=== PATIENT | female | born 1960 | race Caucasian/White ===

== ENCOUNTER 2020-01-01 12:37 | Outpatient (RCR) | payer MEDICAID, SELFPAY | END 2020-02-05 11:57 | disposition home or self-care (01) | LOC: HO.WCC 12:37 | PROVIDERS: PCP Internal Medicine; Visit Provider Surgery | DX: E11.621 Type 2 diabetes mellitus with foot ulcer (principal); L97.522 Non-pressure chronic ulcer of other part of left foot with fat layer exposed; E11.40 Type 2 diabetes mellitus with diabetic neuropathy, unspecified; Z89.511 Acquired absence of right leg below knee | CPT/HCPCS: 11042; 99212 ==

== ENCOUNTER 2020-03-14 11:43 | Emergency (ER) | payer MEDICAID, SELFPAY ==
[2020-03-14 11:53] VITALS: BP 134/56; PULSE 74; RESP 16; TEMP 36.6; O2SAT 98; BMI 34.3
[2020-03-14 13:49] VITALS: BP 164/68; PULSE 82; RESP 15; O2SAT 99
--- NOTE | 2020-03-14 13:52 | ED.GENADULT ---
HPI - General Adult General Chief complaint: General Medical Stated complaint: hemmorhoids Time Seen by Provider: 03/14/20 13:52 Source: patient Mode of arrival: ambulatory Limitations: no limitations History of Present Illness HPI narrative: 59-year-old female with history of diabetes, diabetic gastroparesis, hypertension, coronary artery disease status post [place], PVD, pancreatitis, anxiety and depression, back surgery, right BKA who presents with complaint of constipation for the past 3 days. States longstanding history intermittent constipation has been constipated for the past 3 days has been taking her medications prescribed for constipation by primary care doctor including MiraLax and Colace however she has not been able to go. No abdominal pain no nausea vomiting or diarrhea. Onset (ago): day(s) Treatments prior to arrival: none Related Data Previous Rx's Medication Instructions Recorded hydrocortisone 1 appl CO DAILY PRN #30 g 03/14/20 Allergies Allergy/AdvReac Type Severity Reaction Status Date / Time Penicillins [PENICILLINS] Allergy Mild HIVES Unverified 12/05/19 17:07 clarithromycin [From Biaxin] Allergy Unknown HIVES Unverified 12/05/19 17:07 penicillin V Allergy Unknown rash, Verified 01/19/17 00:00 throat tight bioxin Allergy Unknown Uncoded 04/16/19 00:00 penicillin Allergy Unknown Uncoded 04/16/19 00:00 Review of Systems Review of Systems: Constitutional: No Weight loss, No Fever, No Chills, No Night Sweats, No Fatigue, No Malaise ENT/Mouth: No Hearing loss, No Ear Pain, No Nasal Congestion, No Sinus Pain, No Hoarseness, No sore throat, No Rhinorrhea, No Swallowing Difficulty Eyes: No Eye Pain, No Swelling, No Redness, No Foreign Body, No Discharge, No Vision Changes Cardiovascular: No Chest Pain, No SOB, No Dyspnea on Exertion, No Orthopnea, No Edema, No Palpitations Respiratory: No Cough, No Sputum, No Wheezing, No Smoke Exposure, No Dyspnea Gastrointestinal: No Nausea, No Vomiting, No Diarrhea, + Constipation, No abdominal Pain, No Hematochezia, No Melena Genitourinary: no irregular bleeding, No Dysuria, No Urinary Frequency, No Hematuria, No Urinary Incontinence, No Urgency, No Flank Pain, No Urinary Flow Changes Musculoskeletal: No joint pain, No Myalgias, No Joint Swelling Skin: No Skin Lesions, No rash Neuro: No Weakness, No Numbness, No Paresthesias, No Loss of Consciousness, No Dizziness, No Headache Psych: No Social Issues Heme/Lymph: No Bruising, No Bleeding,No Lymphadenopathy Endocrine: No Polyuria, No Polydipsia, No Temperature Intolerance [facility] Past Medical History Medical History (Updated 03/14/20 @ 13:55 by Jayce Rodriguez NP) Anxiety Below knee amputation CAD (coronary artery disease) Chronic pain syndrome Depression Gastroparesis History of gastrostomy tube placement HTN (hypertension) IDDM (insulin dependent diabetes mellitus) Liver lesion Wheelchair bound Social History Social History Smoking Status: Never smoker Use of substances other than those prescribed or required for medical reasons: No Advance Directives: No Advance Directives Information Provided: No Physical Exam Vital Signs: Vital Signs: Last Vital Signs Temp 97.8 F 03/14/20 11:53 Pulse 82 03/14/20 13:49 Resp 15 03/14/20 13:49 BP 164/68 H 03/14/20 13:49 Pulse Ox 99 03/14/20 13:49 Body Mass Index 34.3 Reviewed Const: General: cooperative and healthy appearing; No acute distress or intoxicated appearing Nutritional Appearance: average body habitus Orientation/consciousness: patient oriented x3 HENMT: Head: Yes normal to inspection Ears: hearing grossly normal bilaterally Eyes: General: appearance normal, both eyes and all related structures Visual Bond: normal visual bond by confrontation Neck: Neck: Yes normal visual inspection and No tender Thyroid: Thyroid normal Chest: Chest palpation & inspection: normal inspection of the chest Resp: Effort & Inspection: normal respiratory effort Cardio: Jugular venous distension: no JVD GI: Inspection: Yes normal to inspection Percussion: Yes normal to percussion Auscultation: normal bowel sounds : General: Yes no CVA tenderness Back/Spine/Pelvis: Back: no CVA tenderness Skin: General skin exam: no rashes or lesions noted Neuro: General: patient oriented x3 Extrem: General: Yes normal to inspection Course Course Course Narrative: Prior to my physical exam states to me that she needs to use the bathroom and she was able to have large bowel movement x2. States the only thing that is bothering her now are her hemorrhoids. No abdominal pain no nausea vomiting or diarrhea. Discharge Plan Discharge Clinical Impression: External hemorrhoid Constipation Qualifiers: Constipation type: other constipation type Qualified Code(s): K59.09 - Other constipation Patient Disposition: Home, Self-Care Instructions: Constipation (ED), Hemorrhoids (ED) Additional Instructions: High-fiber diet Drink plenty fluids Take her constipation medication prescribed Can wash with ?water There is no bleeding from the hemorrhoids at this time Return if any concerns or worsening symptoms Thank you Prescriptions: New hydrocortisone 2.5 % cream with perineal applicator 1 appl CO DAILY PRN (Reason: hemorrhoids) Qty: 30 RF: 0 Referrals: ED Physician,Generic [Emergency Provider] - 1 week (Your primary care doctor)
--- NOTE | 2020-03-14 13:53 | PC.NURSE ---
pt had a moderate formed bm , mlp malaika aware.
== END 2020-03-14 16:14 | disposition home or self-care (01) ==
PROVIDERS: Emergency Provider Emergency Medicine Emergency Medical Services
DX: K64.4 Residual hemorrhoidal skin tags (principal); E11.9 Type 2 diabetes mellitus without complications; I10 Essential (primary) hypertension; I25.2 Old myocardial infarction; Z89.511 Acquired absence of right leg below knee; Z79.899 Other long term (current) drug therapy; Z79.4 Long term (current) use of insulin
CPT/HCPCS: 99284

== ENCOUNTER 2020-04-10 20:31 | Emergency (ER) | payer MEDICAID, SELFPAY ==
[2020-04-10 20:41] VITALS: BP 140/70; BP 158/62; PULSE 74; PULSE 76; RESP 18; TEMP 36.8; O2SAT 100; O2SAT 98; BMI 32.5
--- NOTE | 2020-04-10 21:08 | XR_ITS ---
EXAMINATION: XR FOOT, LEFT CLINICAL INFORMATION: Rule out osteomyelitis COMPARISON: CT from 03/30/2019. Radiograph 03/28/2019. TECHNIQUE: AP, lateral, and oblique views of the left foot. FINDINGS: Osteopenia. No fracture or dislocation. Pes planus. Diffuse narrowing throughout the joint spaces. No osseous erosions are seen. Mild degenerative changes in the midfoot. No ankle joint effusion. Degenerative changes are seen throughout the ankle. Chronic healed distal tibial fracture. Small plantar heel spur. XR/XR foot LT min 3V IMPRESSION: Osteopenia. No erosive osseous changes. Degenerative changes again noted.
--- NOTE | 2020-04-10 21:08 | ECG_ITS ---
Test Reason : CHEST PAIN Blood Pressure : / mmHG Vent. Rate : 072 BPM Atrial Rate : 072 BPM P-R Int : 124 ms QRS Dur : 100 ms QT Int : 408 ms P-R-T Axes : 043 062 -32 degrees QTc Int : 446 ms Normal sinus rhythm Possible Inferior infarct (cited on or before 28-FEB-2019) Abnormal ECG When compared with ECG of 02-DEC-2019 18:30, No significant change was found Referred By: Batsheva Flood Electronically Signed By:GWEN SOLANO
--- NOTE | 2020-04-10 21:09 | XR_ITS ---
EXAMINATION: XR CHEST CLINICAL INFORMATION: Dyspnea COMPARISON: Chest x-ray 10/13/2019 TECHNIQUE: Frontal portable view of the chest was obtained. 9:07 PM FINDINGS: Right subclavian line catheter tip in superior vena cava unchanged position since prior chest x-ray. Lungs are clear. No pulmonary vascular congestion. There is no pleural effusion. The heart size is normal. The cardiac and mediastinal contours are normal. There are calcifications of the thoracic aorta. No acute osseous abnormality. XR/XR chest 1V IMPRESSION: No acute abnormality of the chest.
--- NOTE | 2020-04-10 21:11 | ED.SOB ---
HPI - SOB/Dyspnea General Chief Complaint: Upper Respiratory Symptoms Stated Complaint: SOB Time Seen by Provider: 04/10/20 21:08 Source: patient and EMS Mode of arrival: EMS Limitations: no limitations History of Present Illness MD elicited complaint: shortness of breath and chest pain Pertinent past history: diabetes Onset (ago): day(s) (1) Timing: constant Severity: moderate Exacerbating factors: movement Relieving factors: nothing Known history of: diabetes Associated symptoms: chest pain and lower extremity pain Treatment prior to arrival: aspirin Related Data Home Medications Medication Instructions Recorded Confirmed alprazolam [Xanax] 1 mg PO TID 04/10/20 04/10/20 amitriptyline [Elavil] 50 mg PO BEDTIME 04/10/20 04/10/20 [id number] 1 tab PO TID 04/10/20 04/10/20 [Fioricet] hydromorphone 4 mg PO 5XD 04/10/20 04/10/20 loperamide 2 mg PO BID PRN 04/10/20 04/10/20 promethazine 25 mg PO TID PRN 04/10/20 04/10/20 Previous Rx's Medication Instructions Recorded doxycycline hyclate 100 mg PO BID 7 Days #14 cap 04/10/20 Allergies Allergy/AdvReac Type Severity Reaction Status Date / Time Penicillins [PENICILLINS] Allergy Mild HIVES Verified 04/10/20 23:28 clarithromycin [From Biaxin] Allergy Unknown HIVES Verified 04/10/20 23:28 penicillin V Allergy Unknown rash, Verified 04/10/20 23:28 throat tight bioxin Allergy Unknown Unknown Uncoded 04/10/20 23:28 penicillin Allergy Unknown Unknown Uncoded 04/10/20 23:28 Review of Systems Review of Systems: Constitutional : No Fever, No Chills ENT/Mouth : No sore throat, No Rhinorrhea, No Swallowing Difficulty Eyes: No Eye Pain, No Swelling, No Redness Cardiovascular : pos Chest Pain, positive SOB, No Orthopnea, positive Edema Respiratory : No Cough, No Sputum, No Wheezing, positive dyspnea Gastrointestinal : No Nausea, No Vomiting, No Diarrhea, No abdominal Pain, No Hematochezia, No Melena Genitourinary : No Dysuria, No Urinary Frequency, No Hematuria Musculoskeletal : No joint pain, No Myalgias Skin : pos Skin Lesions, No rash Neuro : No Weakness, No Numbness, No Dizziness, No Headache Psych : No Anxiety/Panic, No Depression Heme/Lymph: No Bruising, No Lymphadenopathy Endocrine : No Polyuria, No Polydipsia All other systems reviewed and are negative [facility] Past Medical History Attestation statement: The following information was validated with the patient. Medical History (Updated 04/10/20 @ 23:31 by Batsheva Flood DO) Anxiety Below knee amputation CAD (coronary artery disease) Chronic pain syndrome Depression Gastroparesis History of gastrostomy tube placement HTN (hypertension) IDDM (insulin dependent diabetes mellitus) Liver lesion Wheelchair bound Surgical History (Updated 04/10/20 @ 21:19 by Batsheva Flood DO) Hx of BKA Social History Social History Alcohol intake: never Smoking Status: Never smoker Use of substances other than those prescribed or required for medical reasons: No Advance Directives: No Advance Directives Information Provided: Yes Physical Exam Vital Signs: Vital Signs: Last Vital Signs Temp 98.4 F 04/10/20 22:00 Pulse 72 04/10/20 22:00 Resp 17 04/10/20 22:00 BP 121/71 04/10/20 22:00 Pulse Ox 98 04/10/20 22:00 Body Mass Index 32.5 Appearance: Alert. Oriented X3. No acute distress. Eyes: Pupils equal, round and reactive to light. ENT: Pharynx normal. Neck: Normal inspection. Neck supple. CVS: Normal heart rate and rhythm. Pulses normal. Respiratory: No respiratory distress. Breath sounds normal. Abdomen: Soft and nontender. Skin: Skin warm and dry. Normal skin color. Normal skin turgor. Extremities: + L LE edema 1-2+ pitting No calf ttp L plantar surface MTP - diabetic ulcer no surrounding erythema or edema/very minimal brownish drainage no foul odor noted Neuro: Oriented X 3. No motor deficit. No sensory deficit. Course Course Course Narrative: troponin under 5 with full day of symptoms ddimer under upper limit of normal no hypoxia, no tachycardia doubt PE CRP lower than baseline, no WBC count doubt osteo at this time, chronically elevated BS in EMR, insulin ordered ESR also much lower, given prior cultures will start on doxycycline MDM - SOB/Dyspnea MDM Narrative Medical decision making narrative: 60 yo female with chronic pain, CAD, DM, chronic foot ulcer comes in with 24 hours of L sided chest pain worse with movements and dyspnea - also c/o worsening L foot ulcer will need labs, troponin x 1, ddimer, CXR, already on asa, ddimer for possible PE, xray of L foot to r/o osteo. denies systemic infection complaints Lab Data Result diagrams: 04/10/20 22:22 04/10/20 22:22 Labs: Lab Results 04/10/20 04/10/20 04/10/20 Range/Units 22: 22: 22: WBC 9.6 (4.8-10.8) X10*3/uL RBC 4.30 (4.20-5.50) X10*6/uL Hgb 13.4 (12.0-16.0) g/dl Hct 40.7 (37-47) % MCV 94.7 (80-98) fL MCH 31.2 (27.0-33.0) pg MCHC 32.9 (31.0-35.0) g/dl RDW 12.4 (11.0-16.0) % Plt Count 228 (160-400) X10*3/uL MPV 10.1 (9.4-12.3) fL Immature Gran % (Auto) 0.3 (0.0-0.4) % Neut % (Auto) 70.1 (45-73) % Lymph % (Auto) 22.5 (20-40) % [place] % (Auto) 6.2 (2-11) % Eos % (Auto) 0.6 (0-4) % Baso % (Auto) 0.3 (0-2) % Lymph # (Auto) 2.2 (1.2-4.9) X10*3/uL [place] # (Auto) 0.6 (0.1-1.2) X10*3/uL Eos # (Auto) 0.1 (0.0-0.4) X10*3/uL Baso # (Auto) 0.0 (0.0-0.2) X10*3/uL Abs Immat Gran (auto) 0.03 (0.00-0.03) X10*3/uL Absolute Neuts (auto) 6.7 (2.0-8.3) X10*3/uL Absolute Nucleated RBC 0.000 (0.0-0.012) X10*3/uL Nucleated RBC % (auto) 0.0 (0.0-0.2) /100WBC ESR 29 H (0-20) MM/HR PT 11.9 (10.8-13.0) SEC INR 1.0 (0.9-1.1) APTT 31.3 (24.1-38.0) SEC D-Dimer 231 NG/ML Sodium (135-145) mmol/L Potassium (3.3-5.1) mmol/l Chloride (96-108) mmol/L Carbon Dioxide (22-29) mmol/L Anion Gap (12-20) BUN (9-16) mg/dL Creatinine (0.5-1.4) mg/dL Estim Creat Clear Calc Estimated GFR Random Glucose (60-115) mg/dL Lactic Acid (0.5-2.0) mmol/L Calcium (8.4-10.2) mg/dL Magnesium (1.6-2.6) mg/dL Total Bilirubin (0.0-1.0) mg/dL Direct Bilirubin (0.0-0.5) mg/dL AST (5-31) U/L ALT (0-31) U/L Alkaline Phosphatase (39-117) U/L Troponin I High Sens (<3.5-17.0) ng/L C-Reactive Protein (< or = 0.50) mg/dL B-Natriuretic Peptide (<100) pg/mL Total Protein (6.5-8.0) g/dL Albumin (3.5-5.0) g/dL Lipase (8-78) U/L COVID-19 (TA) (Negative) COVID-19 Clin Com 04/10/20 04/10/20 04/10/20 Range/Units 22:22 22:22 22:22 WBC (4.8-10.8) X10*3/uL RBC (4.20-5.50) X10*6/uL Hgb (12.0-16.0) g/dl Hct (37-47) % MCV (80-98) fL MCH (27.0-33.0) pg MCHC (31.0-35.0) g/dl RDW (11.0-16.0) % Plt Count (160-400) X10*3/uL MPV (9.4-12.3) fL Immature Gran % (Auto) (0.0-0.4) % Neut % (Auto) (45-73) % Lymph % (Auto) (20-40) % [place] % (Auto) (2-11) % Eos % (Auto) (0-4) % Baso % (Auto) (0-2) % Lymph # (Auto) (1.2-4.9) X10*3/uL [place] # (Auto) (0.1-1.2) X10*3/uL Eos # (Auto) (0.0-0.4) X10*3/uL Baso # (Auto) (0.0-0.2) X10*3/uL Abs Immat Gran (auto) (0.00-0.03) X10*3/uL Absolute Neuts (auto) (2.0-8.3) X10*3/uL Absolute Nucleated RBC (0.0-0.012) X10*3/uL Nucleated RBC % (auto) (0.0-0.2) /100WBC ESR (0-20) MM/HR PT (10.8-13.0) SEC INR (0.9-1.1) APTT (24.1-38.0) SEC D-Dimer NG/ML Sodium 134 L (135-145) mmol/L Potassium 4.9 (3.3-5.1) mmol/l Chloride 100 (96-108) mmol/L Carbon Dioxide 23 (22-29) mmol/L Anion Gap 16 (12-20) BUN 12 (9-16) mg/dL Creatinine 0.98 (0.5-1.4) mg/dL Estim Creat Clear Calc 64.8 Estimated GFR 58 Random Glucose 451 H* (60-115) mg/dL Lactic Acid 1.6 (0.5-2.0) mmol/L Calcium 9.2 (8.4-10.2) mg/dL Magnesium 2.1 (1.6-2.6) mg/dL Total Bilirubin 0.5 (0.0-1.0) mg/dL Direct Bilirubin 0.2 (0.0-0.5) mg/dL AST 21 (5-31) U/L ALT 13 (0-31) U/L Alkaline Phosphatase 105 (39-117) U/L Troponin I High Sens (<3.5-17.0) ng/L C-Reactive Protein 0.83 H (< or = 0.50) mg/dL B-Natriuretic Peptide 27 (<100) pg/mL Total Protein 7.8 (6.5-8.0) g/dL Albumin 4.4 (3.5-5.0) g/dL Lipase 13 (8-78) U/L COVID-19 (TA) (Negative) COVID-19 Clin Com 04/10/20 04/10/20 Range/Units 22:22 22:22 WBC (4.8-10.8) X10*3/uL RBC (4.20-5.50) X10*6/uL Hgb (12.0-16.0) g/dl Hct (37-47) % MCV (80-98) fL MCH (27.0-33.0) pg MCHC (31.0-35.0) g/dl RDW (11.0-16.0) % Plt Count (160-400) X10*3/uL MPV (9.4-12.3) fL Immature Gran % (Auto) (0.0-0.4) % Neut % (Auto) (45-73) % Lymph % (Auto) (20-40) % [place] % (Auto) (2-11) % Eos % (Auto) (0-4) % Baso % (Auto) (0-2) % Lymph # (Auto) (1.2-4.9) X10*3/uL [place] # (Auto) (0.1-1.2) X10*3/uL Eos # (Auto) (0.0-0.4) X10*3/uL Baso # (Auto) (0.0-0.2) X10*3/uL Abs Immat Gran (auto) (0.00-0.03) X10*3/uL Absolute Neuts (auto) (2.0-8.3) X10*3/uL Absolute Nucleated RBC (0.0-0.012) X10*3/uL Nucleated RBC % (auto) (0.0-0.2) /100WBC ESR (0-20) MM/HR PT (10.8-13.0) SEC INR (0.9-1.1) APTT (24.1-38.0) SEC D-Dimer NG/ML Sodium (135-145) mmol/L Potassium (3.3-5.1) mmol/l Chloride (96-108) mmol/L Carbon Dioxide (22-29) mmol/L Anion Gap (12-20) BUN (9-16) mg/dL Creatinine (0.5-1.4) mg/dL Estim Creat Clear Calc Estimated GFR Random Glucose (60-115) mg/dL Lactic Acid (0.5-2.0) mmol/L Calcium (8.4-10.2) mg/dL Magnesium (1.6-2.6) mg/dL Total Bilirubin (0.0-1.0) mg/dL Direct Bilirubin (0.0-0.5) mg/dL AST (5-31) U/L ALT (0-31) U/L Alkaline Phosphatase (39-117) U/L Troponin I High Sens 4.3 (<3.5-17.0) ng/L C-Reactive Protein (< or = 0.50) mg/dL B-Natriuretic Peptide (<100) pg/mL Total Protein (6.5-8.0) g/dL Albumin (3.5-5.0) g/dL Lipase (8-78) U/L COVID-19 (TA) Negative (Negative) COVID-19 Clin Com See Note ECG Data Attestation: I personally reviewed and interpreted this ECG as follows: ECG interpretation date: 04/10/20 ECG interpretation time: 21:46 Interpretation: Rate: 73 Rhythm: NSR [place]: normal Normal P waves. Normal MARY. Normal QRS complex. Poor R wave progression ST T wave : no DAMARIS, inverted in III and aVF qTC: normal prior studies: no acute ischemia, artifact noted unchanged 11/2019 The study has been interpreted contemporaneously by me. . Discharge Plan Discharge Clinical Impression: Diabetic foot ulcer Qualifiers: Diabetic foot ulcer location: other Diabetes mellitus type: other specified (including NANCY) Laterality: left Non-pressure ulcer stage: unspecified non-pressure ulcer stage Qualified Code(s): E13.621 - Other specified diabetes mellitus with foot ulcer Chest pain Qualifiers: Chest pain type: unspecified Qualified Code(s): R07.9 - Chest pain, unspecified Patient Disposition: Home, Self-Care Instructions: Chest Pain (ED), Diabetic Foot Ulcers (ED) Additional Instructions: return to ED for any worsening symptoms or concerns PLEASE CALL [facility] Prescriptions: New doxycycline hyclate 100 mg capsule 100 mg PO BID 7 Days Qty: 14 RF: 0 No Action alprazolam [Xanax] 1 mg Tablet 1 mg PO TID RF: 0 loperamide 2 mg Tablet 2 mg PO BID PRN (Reason: Diarrhea) RF: 0 amitriptyline [Elavil] 50 mg Tablet 50 mg PO BEDTIME RF: 0 [id number]-dsdzlvnadryua-[id number] [Fioricet] 50-325-40 mg Tablet 1 tab PO TID RF: 0 promethazine 25 mg Tablet 25 mg PO TID PRN (Reason: Nausea And Vomiting) RF: 0 hydromorphone 4 mg Tablet 4 mg PO 5XD RF: 0 Referrals: Willie Pollard PA [[facility] [employer]] - 3 days
[2020-04-10 22:00] VITALS: BP 121/71; PULSE 72; RESP 17; TEMP 36.9; O2SAT 98
[2020-04-10 22:29] LABS: MANUAL DIFF FLAG NO
[2020-04-10 22:31] LABS: Basophils Percent Auto 0.3 % (0-2); Eosinophils Absolute Auto 0.1 X10*3/uL (0.0-0.4); Eosinophils Percent Auto 0.6 % (0-4); Hematocrit 40.7 % (37-47); Hemoglobin 13.4 g/dl (12.0-16.0); Imm Gran Abs Auto 0.03 X10*3/uL (0.00-0.03); Imm Gran Pct Auto 0.3 % (0.0-0.4); Lymphocytes Absolute Auto 2.2 X10*3/uL (1.2-4.9); Lymphocytes Percent Auto 22.5 % (20-40); Mean Corpuscular HGB Conc 32.9 g/dl (31.0-35.0); Mean Corpuscular Hemoglobin 31.2 pg (27.0-33.0); Mean Corpuscular Volume 94.7 fL (80-98); Mean Platelet Volume 10.1 fL (9.4-12.3); Monocytes Absolute Auto 0.6 X10*3/uL (0.1-1.2); Monocytes Percent Auto 6.2 % (2-11); Neutrophils Absolute Auto 6.7 X10*3/uL (2.0-8.3); Neutrophils Percent Auto 70.1 % (45-73); Platelet Count 228 X10*3/uL (160-400); Red Cell Distribution Width 12.4 % (11.0-16.0); White Blood Count 9.6 X10*3/uL (4.8-10.8)
--- NOTE | 2020-04-10 22:33 | PC.NURSE ---
ekg performed, labs drawn, covid swab performed
[2020-04-10 22:41] LABS: Prothrombin Time 11.9 SEC (10.8-13.0)
[2020-04-10 22:44] LABS: D Dimer 231 NG/ML; Partial Thromboplastin Time 31.3 SEC (24.1-38.0)
[2020-04-10 22:46] LABS: COVID-19 Test Negative (Negative)
--- NOTE | 2020-04-10 22:46 | PC.NURSE ---
patient a&ox3, speaking in full sentences, breathing non labored, panel monitor nsr 70s, vss, pt awaiting results of labs, will continue to monitor.
[2020-04-10 22:56] LABS: B Type Natriuretic Peptide 27 pg/mL (<100); Lactic Acid 1.6 mmol/L (0.5-2.0); Troponin-I High Sensitivity 4.3 ng/L (<3.5-17.0)
[2020-04-10 22:57] LABS: Alanine Aminotransferase 13 U/L (0-31); Albumin Level 4.4 g/dL (3.5-5.0); Alkaline Phosphatase 105 U/L (39-117); Anion Gap 16 (12-20); Aspartate Amino Transferase 21 U/L (5-31); Bilirubin Direct 0.2 mg/dL (0.0-0.5); Bilirubin Total 0.5 mg/dL (0.0-1.0); Blood Urea Nitrogen 12 mg/dL (9-16); C Reactive Protein 0.83 mg/dL (< or = 0.50); Calcium 9.2 mg/dL (8.4-10.2); Carbon Dioxide 23 mmol/L (22-29); Chloride 100 mmol/L (96-108); Creatinine Clr Calc Pharmacy 64.8; Estimated Glomerular Filt Rate 58; Glucose Random 451 mg/dL (60-115); Lipase 13 U/L (8-78); Magnesium 2.1 mg/dL (1.6-2.6); Potassium 4.9 mmol/l (3.3-5.1); Sodium 134 mmol/L (135-145); Total Protein 7.8 g/dL (6.5-8.0)
[2020-04-10 23:22] LABS: Erythrocyte Sedimentation Rate 29 MM/HR (0-20)
[2020-04-10] MEDS: Insulin Lispro 100 UNIT/ML 3 ML VIAL SUBCUT (23:38)
[2020-04-11 00:32] LABS: Glucose, Whole Blood 385 mg/dL (60-115)
== END 2020-04-11 00:40 | disposition home or self-care (01) ==
PROVIDERS: Emergency Provider Emergency Medicine
DX: E13.621 Other specified diabetes mellitus with foot ulcer (principal); R07.9 Chest pain, unspecified; Z20.822 Contact with and (suspected) exposure to COVID-19; I10 Essential (primary) hypertension; Z79.4 Long term (current) use of insulin; Z99.3 Dependence on wheelchair
CPT/HCPCS: 36415; 71045; 73630; 80048; 80076; 82947; 83605; 83690; 83735; 83880; 84484; 85025; 85379; 85610; 85652; 85730; 86140; 87040; 87147; 87205; 87635; 93005; 96374; 99284

== ENCOUNTER 2020-04-23 13:51 | Outpatient (RCR) | payer MEDICAID, SELFPAY | END 2020-06-02 11:26 | disposition home or self-care (01) | LOC: HO.WCC 13:51 | PROVIDERS: Visit Provider Surgery | DX: Z09 Encounter for follow-up examination after completed treatment for conditions other than malignant neoplasm (principal); E11.9 Type 2 diabetes mellitus without complications; Z89.511 Acquired absence of right leg below knee; Z86.31 Personal history of diabetic foot ulcer | CPT/HCPCS: 11042; 97597; 99212 ==

== ENCOUNTER 2020-05-12 08:40 | Inpatient (IN) | payer MEDICAID, SELFPAY ==
[2020-05-12] VITALS (13 sets, daily range): BP systolic 85–164; BP diastolic 37–80; PULSE 69–84; RESP 12–18; TEMP 36.5–37.7; O2SAT 95–100; BMI 31.7
--- NOTE | ~2020-05-12 | XR_ITS ---
EXAMINATION: XR ELBOW, LEFT CLINICAL INFORMATION: Fall, trauma, pain COMPARISON: None TECHNIQUE: AP, lateral, and oblique views of the left elbow. FINDINGS: There is no fracture, dislocation, or elbow capsular effusion. No joint narrowing or erosive change. Bony mineralization unremarkable. XR/XR elbow LT min 3V IMPRESSION: No fracture, dislocation, or elbow capsular effusion.
--- NOTE | ~2020-05-12 | XR_ITS ---
EXAMINATION: XR KNEE, LEFT CLINICAL INFORMATION: Fall, trauma, pain COMPARISON: Radiographs left knee 02/13/2015 TECHNIQUE: 5 views of the left knee. FINDINGS: There no fracture, dislocation, or destructive process. There are tricompartment osteoarthritic changes again noted, greatest medial knee joint compartment with mild joint narrowing and osteophytes. There is no erosive change or definite chondrocalcinosis. There is trace thickening suprapatellar bursa which may represent trace effusion. Hoffa's fat pad appears normal. There is spurring at the quadriceps insertion patella. There is extensive vascular calcification, partly M?nckeberg medial calcific sclerosis.? XR/XR knee LT 4V IMPRESSION: 1. No fracture or dislocation. 2. Tricompartment osteoarthritis. Probable trace effusion.
--- NOTE | ~2020-05-12 | CT_ITS ---
EXAMINATION: CT HEAD WITHOUT CONTRAST CLINICAL INFORMATION: Fall, trauma COMPARISON: CT head 04/05/2019, 02/28/2019 TECHNIQUE: Contiguous axial imaging was performed from the skull base to vertex without intravenous administration of contrast. Additional 2-D coronal and sagittal reformatted images are generated on the CT workstation and uploaded to PACS. This CT examination was performed using dose optimization techniques as appropriate, variously including the following: *Automated exposure control *Adjustment of mA and/or kV according to patient size (this includes techniques or standardized protocols for targeted exams where dose is matched to indication/reason for exam; i.e. extremities or head) *Use of iterative reconstruction technique DLP: 682 mGy-cm FINDINGS: There is no intracranial hemorrhage, hematoma, or extra-axial fluid collection. The ventricles are normal in size. There is no hydrocephalus, edema, or mass effect. The roy-white matter differentiation appears symmetric. There is no visible acute territorial infarct or mass lesion. The calvarium appears intact. There is no pneumocephalus or orbital emphysema. The visualized sinuses and middle ears and mastoid air cells show no significant mucosal thickening. There are no air-fluid levels. CT/CT head/brain wo con IMPRESSION: No acute intracranial abnormality.
--- NOTE | ~2020-05-12 | XR_ITS ---
EXAMINATION: XR HAND WRIST, LEFT CLINICAL INFORMATION: Fall, trauma, pain and swelling COMPARISON: None TECHNIQUE: The left hand and wrist are imaged together in large [id number] images for 3 views with additional navicular view of the wrist. There are a total of 4 views. FINDINGS: There is an oblique fracture involving the base second metacarpal. No significant displacement or angulation. No dislocation or destructive process. The fracture may extend to the proximal articular surface. There is no other fracture demonstrated. The ulnar variance is neutral. There are atherosclerotic calcifications vasculature. XR/XR hand wrist LT IMPRESSION: Oblique fracture base second metacarpal standing close to the proximal articular surface. No significant angulation or displacement. No dislocation.
--- NOTE | ~2020-05-12 | CT_ITS ---
EXAMINATION: CT CERVICAL SPINE WITHOUT CONTRAST CLINICAL INFORMATION: Fall, head injury. COMPARISON: 10/04/2019 TECHNIQUE: Axial imaging. Sagittal and coronal reconstructions. This CT examination was performed using dose optimization techniques as appropriate, variously including the following: *Automated exposure control *Adjustment of mA and/or kV according to patient size (this includes techniques or standardized protocols for targeted exams where dose is matched to indication/reason for exam; i.e. extremities or head) *Use of iterative reconstruction technique DLP: 625 mGy-cm. FINDINGS: Motion artifact degrading images, with associated limitations. Atlantooccipital and atlantoaxial relations are maintained. Mild right convex curvature of the cervical spine. On the sagittal sequences, posterior alignment is maintained. Predens space is maintained. Vertebral body heights are maintained. No acute fracture is identified. Moderate disc degeneration from C6-T1. No prevertebral soft tissue swelling. Mild biapical pleural parenchymal scarring. Right-sided port is partially visualized. No suspicious findings in the thyroid gland. CT/CT cervical spine wo con IMPRESSION: 1. On the provided images, no acute fracture or subluxation is identified. Motion artifact is degrading images, with associated limitation in evaluation. Please clinically correlate. A repeat CT scan can be obtained for further evaluation as slightly warranted. 2. Moderate disc degeneration from C6-T1.
--- NOTE | ~2020-05-12 | CT_ITS ---
EXAMINATION: CT ABDOMEN AND PELVIS WITHOUT CONTRAST CLINICAL INFORMATION: Fall. Back and abdominal pain. COMPARISON: 12/02/2019 TECHNIQUE: Multidetector volumetric imaging was performed from the superior aspect of the liver through the pubic symphysis. Sagittal and coronal reformatted images were obtained on the technologist's workstation. This CT examination was performed using dose optimization techniques as appropriate, variously including the following: *Automated exposure control *Adjustment of mA and/or kV according to patient size (this includes techniques or standardized protocols for targeted exams where dose is matched to indication/reason for exam; i.e. extremities or head) *Use of iterative reconstruction technique DLP: 1287 mGy-cm FINDINGS: LUNG BASES: Mild bibasilar atelectasis. LIVER, GALLBLADDER, AND BILIARY TREE: Redemonstrated are areas of ill-defined low attenuation in the liver. These are suboptimally visualized and evaluated on this noncontrast CT, but appreciated on the prior contrast CT of 12/02/2019. No perihepatic fluid is seen. The gallbladder is nondistended/contracted, evaluation is limited. CBD measures 7 mm distally, similar to previous. PANCREAS: Diffuse atrophy of the pancreas is redemonstrated. The previously noted cystic foci in the head of the pancreas are not well seen on the current noncontrast study, better appreciated on the prior contrast-enhanced CT. SPLEEN: Unremarkable. No perisplenic fluid is seen. ADRENAL GLANDS: Unremarkable. KIDNEYS AND URETERS: No calculi. No hydronephrosis. No suspicious lesions identified. No perinephric fluid. BLADDER: Unremarkable. GASTROINTESTINAL TRACT: Sryqxkgl-ra-ffadz volume fecal matter in the large colon. The stomach and small bowel are not dilated. No evidence of colitis or diverticulitis. No free fluid. No free air is seen. ABDOMINAL WALL: Gastric stimulator generator pack seen in the anterior abdomen. There is stranding in the subcutaneous tissues of the right abdominal wall, which was seen on the prior study, as well. No significant abdominal wall hernia is identified. LYMPH NODES: No adenopathy seen. VASCULAR: Normal caliber aorta. PELVIC VISCERA: Within normal limits. OSSEOUS STRUCTURES: Patient is rotated to the right. Redemonstrated is heterogeneous appearance of the bones. Heterogeneity/lucency of the left iliac bone is redemonstrated, stable from previous. There are lucencies in the L3 and L4 vertebral body, similar to previous. Vertebral body heights are maintained. No acute fractures identified. Degenerative changes in the spine. No acute fracture is otherwise seen. There is air seen in the right SI joint, and small foci of air in the left SI joint, which was also present in the prior study, and may be related to vacuum phenomenon. CT/CT abdomen pelvis wo con IMPRESSION: 1. No acute findings are identified in the abdomen or pelvis. 2. Ill-defined areas of low densities in the liver, suboptimally visualized on noncontrast CT. These were present and better appreciated on the prior contrast enhanced CT of 12/02/2019. 3. There is stranding in the subcutaneous tissues of the right abdominal wall, which are present on the prior study, as well. 4. Patient is rotated to the right, somewhat limiting evaluation. No acute fracture is identified. Diffuse heterogeneity of the osseous structures, including areas of lucency within the bones. These appear unchanged as compared to previous. These are of uncertain etiology. Further evaluation with followup bone scan can be obtained as clinically warranted.
--- NOTE | ~2020-05-12 | XR_ITS ---
EXAMINATION: XR CHEST CLINICAL INFORMATION: Status post fall. COMPARISON: 04/10/2020 TECHNIQUE: 2 views of the chest were obtained. FINDINGS: Markedly rotated positioning. There is prominence of the cardiac and mediastinal silhouette, accentuated by the rotated positioning. Right-sided chest port with tip projected over the distal SVC. Monitoring leads overlie the chest. Low lung volumes. No focal consolidation, effusion or pulmonary edema. No pneumothorax is seen. XR/XR chest 2V IMPRESSION: No evidence of acute pulmonary process. Prominence of the cardiac and mediastinal silhouette, probably related to the rotated positioning. Repeat radiographs as clinically warranted.
--- NOTE | 2020-05-12 09:10 | ECG_ITS ---
Test Reason : FALL Blood Pressure : / mmHG Vent. Rate : 069 BPM Atrial Rate : 069 BPM P-R Int : 180 ms QRS Dur : 110 ms QT Int : 422 ms P-R-T Axes : 034 059 -18 degrees QTc Int : 452 ms Normal sinus rhythm Inferior infarct (cited on or before 28-FEB-2019) Abnormal ECG When compared with ECG of 10-APR-2020 21:42, No significant change was found Referred By: Felicia Urbano Electronically Signed By:VLADIMIR DICKEY MD
--- NOTE | 2020-05-12 09:47 | ED.FALL ---
HPI - Fall General Chief Complaint: Fall Stated Complaint: HIGH BS W/ FALL AND HEAD STRIKE Time Seen by Provider: 05/12/20 08:50 Source: patient and EMS Mode of arrival: EMS Limitations: other (Poor historian) History of Present Illness HPI Narrative: 60-year-old female who is currently wheelchair-bound with a past medical history of below the knee amputation of the left leg, insulin-dependent diabetes where she takes long-acting 15 units twice a day of insulin, CAD, hypertension, chronic pain syndrome currently on 4 mg of Dilaudid, liver lesion, anxiety and depression presenting to the ED via EMS with C-collar placed after she reports having a unwitnessed mechanical fall in the bathroom while trying to pull her pants up with head injury unsure if she lost consciousness complaining of left elbow/left knee and lower back pain. She reports when she was attempting to pull her pants up in the bathroom after using the bathroom due to having her Omar stocking on she slipped falling onto the cement ground. She reports she was able to pull the pull cord in her apartment for help and that is when EMS shortly arrived later on. She denies any symptoms prior to the fall which include any lightheadedness, dizziness, changes in vision, nausea/vomiting, jaw pain, paresthesias, chest pain, shortness of breath, abdominal pain or any other symptoms complaints or concerns. MD complaint: fall Onset (ago): minute(s) (Prior to arrival) Fall from: standing (While attempting to pull up her pants in the bathroom) Fall witnessed: no Place fall occurred: home Loss of consciousness: unsure Prolonged down time: unclear Symptoms prior to fall: none Context: tripped/slipped (Due to she had her Omar stocking on ) Related Data Home Medications Medication Instructions Recorded Confirmed alprazolam [Xanax] 1 mg PO TID 04/10/20 05/12/20 [id number] 1 tab PO TID PRN 04/10/20 05/12/20 [Fioricet] hydromorphone 4 mg PO 5XD 04/10/20 05/12/20 promethazine 25 mg PO TID PRN 04/10/20 05/12/20 amitriptyline 50 mg PO BEDTIME 05/12/20 05/12/20 amlodipine 5 mg PO DAILY 05/12/20 05/12/20 aspirin 81 mg PO DAILY 05/12/20 05/12/20 atorvastatin 80 mg PO DAILY 05/12/20 05/12/20 bisacodyl 5 mg PO BID PRN 05/12/20 05/12/20 gabapentin 300 mg PO TID 05/12/20 05/12/20 insulin regular hum U-500 conc 200 unit SUBCUT BEDTIME 05/12/20 05/12/20 [Humulin R U-500 (Conc) Insulin] insulin regular hum U-500 conc 250 unit SUBCUT QAM 05/12/20 05/12/20 [Humulin R U-500 (Conc) Insulin] isosorbide mononitrate 30 mg PO DAILY 05/12/20 05/12/20 lactulose 20 g PO TID PRN 05/12/20 05/12/20 losartan 100 mg PO DAILY 05/12/20 05/12/20 metoclopramide HCl 10 mg PO Q6H PRN 05/12/20 05/12/20 metoprolol succinate 100 mg PO BID 05/12/20 05/12/20 niacin 1,000 mg PO BEDTIME 05/12/20 05/12/20 omeprazole 20 mg PO BID 05/12/20 05/12/20 polyethylene glycol 3350 [Miralax] 17 g PO DAILY 05/12/20 05/12/20 topiramate 100 mg PO BID 05/12/20 05/12/20 Allergies Allergy/AdvReac Type Severity Reaction Status Date / Time Penicillins [PENICILLINS] Allergy Mild HIVES Verified 04/10/20 23:28 clarithromycin [From Biaxin] Allergy Unknown HIVES Verified 04/10/20 23:28 penicillin V Allergy Unknown rash, Verified 04/10/20 23:28 throat tight bioxin Allergy Unknown Unknown Uncoded 04/10/20 23:28 penicillin Allergy Unknown Unknown Uncoded 04/10/20 23:28 Review of Systems Review of Systems: Constitutional : No changes in activity, No lethargy, No recent prior head injury, No agitation, No increased fussiness ENT/Mouth : No Ear Pain, No Nasal discharge/drainage Eyes: No Eye Pain, No Swelling, No Redness, No Foreign Body, No Vision Changes Cardiovascular : No Chest Pain, No SOB Respiratory : No Cough, No Wheezing Gastrointestinal : No Nausea, No Vomiting, No abdominal Pain Genitourinary : No Dysuria, No Urinary Frequency, No Urinary Incontinence, No Urgency, No Flank Pain Musculoskeletal : + Back pain/injury, No joint pain, No neck stiffness Skin : No lacerations Neuro : + Head injury, Unsure if LOC, No unsteady gait, No Paresthesias, No altered mental status, No Headache Yes all other systems are reviewed and are negative [facility] Past Medical History Attestation statement: The following information was validated with the patient. Medical History Anxiety Below knee amputation CAD (coronary artery disease) Chronic pain syndrome Depression Gastroparesis History of gastrostomy tube placement HTN (hypertension) IDDM (insulin dependent diabetes mellitus) Liver lesion Wheelchair bound Surgical History Hx of BKA Social History Social History Alcohol intake: never Smoking Status: Never smoker Use of substances other than those prescribed or required for medical reasons: Unknown Advance Directives: No Advance Directives Information Provided: No Physical Exam Vital Signs: Vital Signs: Last Vital Signs Temp 98.8 F 05/12/20 15:14 Pulse 80 05/12/20 15:14 Resp 15 05/12/20 15:14 BP 164/74 H 05/12/20 15:14 Pulse Ox 97 05/12/20 15:14 Body Mass Index 31.7 Vital signs have been reviewed as normal and appeared to be correct. Blood pressure normal. Heart rate normal. Respiration rate normal. Temperature normal. Oxygen saturation normal. Appearance: Somnolent although easily arousable otherwise Oriented X3. No acute distress. Head: Normal external exam. Normocephalic. Atraumatic. Able to rotate head bilaterally. Eyes: PERRLA. EOMI. No nystagmus noted. Conjunctiva and sclera normal. Eyelids normal. Corneal reflex normal. ENT: EAC normal. TM's Normal. Hearing normal. Pharynx normal. Uvula midline. tongue midline. Moist mucous membranes. No trismus noted. No drooling noted. No muffled voice noted. No nystagmus noted. Neck: Normal inspection. Neck supple. FROM. No adenopathy. Trachea midline. Thyroid Normal. No meningeal signs. No neck mass noted. CVS: Normal heart rate and rhythm. Heart sound normal. No murmurs noted. Pulses normal throughout. Respiratory: No respiratory distress. Painless inspiration. Breath sounds normal. No wheezes/rales/rhonchi noted. Chest nontender. No accessory muscle usage noted or decreased air movement noted. Abdomen: Soft and nontender. Bowel sounds normal in all 4 quadrants. No distention noted. No organomegaly noted. No visible injury noted. Back: No CVA tenderness. Full range of motion noted. Skin: Skin warm and dry. Normal skin color. Normal skin turgor. See below for patient's left foot wound that is chronic no signs of infection today otherwise no other rashes/lesions/lacerations noted. Extremities: Right leg noted to have below the knee amputation. No sites of infection on stump. Small abrasion to left knee otherwise no tenderness noted. No obvious deformities noted. No laxity noted. Patient tender to palpation to left elbow. No obvious deformities or laxity noted. Patient has full range of motion. No lower extremity edema. Otherwise all other Extremities exhibit normal range of motion. and nontender. Able to shrug shoulders bilaterally and keep up against resistance. Neuro: Oriented X 3. No motor deficit. No sensory deficit. Reflexes normal. Moving all extremities. No focal motor deficits. Cranial nerves II-XI intact bilaterally. Facial strength normal. Normal cognition. Speech normal. Strength 5/5 throughout. No pronator drift. No tremor noted. No fasciculations noted. No rigidity noted. Muscle tone normal throughout. No asterixis noted. [id number] test normal. Patient able to lift bilateral legs and hold them up against resistance. Does not sway with eyes open. Romberg test negative. Rapid alternating movement upper extremity normal. Rapid alternating movement lower extremity normal. Hand drop from overhead Misses face. NIHSS score 0. Course Course Course Narrative: 9:10am - 60-year-old female who is currently wheelchair-bound with a past medical history of below the knee amputation of the left leg, insulin-dependent diabetes where she takes long-acting 15 units twice a day of insulin, CAD, hypertension, chronic pain syndrome currently on 4 mg of Dilaudid, liver lesion, anxiety and depression presenting to the ED via EMS with C-collar placed after she reports having a unwitnessed mechanical fall in the bathroom while trying to pull her pants up with head injury unsure if she lost consciousness complaining of left elbow/left knee and lower back pain. - on exam patient is very somnolent although easily arousable and is oriented x3. Not in any acute distress. Vital signs are stable and within normal limits at this time. No focal neuro deficits noted. Patient able to move all extremities. NIH SS score 0 at this time. No tPA indicated as patient has non disabling symptoms at this time. - concern for mechanical fall vs electrolyte abnormality vs CVA vs SAH vs ACS - Plan: Labs, CT scan of brain/cervical spine/abdomen pelvis, chest x-ray, EKG, UA, drug urine screen. Provide a L of IV fluids and re-evaluate. Reevaluation(s) Reevaluation #1: - The patient was noted to be hypotensive 80s/38s and obtunded therefore she was given 2 doses of 0.4 IV Narcan for opioid overdose as patient is prescribed chronic medications such as Dilaudid and is now responding at this time and blood pressures back up to to 118/48. - EKG is normal sinus rhythm with a ventricular rate of 69 with a normal GA interval normal QRS duration normal QT/QTC interval. No acute ischemic changes noted. - CT scan of brain within normal limits no acute processes noted. - CT cervical spine on the provided images no acute fractures or subluxation identified although motion artifact is degrading imaging and they reported that a repeat CT scan indicated if patient was having any cervical spinal tenderness although on exam patient does not have any cervical spinal tenderness. Has full range of motion. No neural deficits. Therefore no repeat a CT scan of cervical spine indicated at this time. Otherwise CT cervical spine revealed chronic changes no other acute processes noted. - CXR revealed prominence of cardiac and mediastinal silhouette probably related to the patient being rotated otherwise no other acute processes noted. - awaiting CT scan of abdomen and pelvis. - Still waiting for labs to return at this time. Time: 10:25 Reevaluation #2: - Pt's BP dropped again to 80's/30's and appear to be attended again there for another dose of 0.4 IV Narcan given and blood pressure is back up to 120s/30s. - still awaiting labs as patient is a tough IV stick - I added an ABG at this time. - will continue to monitor re-evaluate. Time: 11:47 Reevaluation #3: - to obtain labs multiple nurses and PCT is attempted at this time. Will call phlebotomy to attempt to draw the patient's blood or attempt with ultrasound-guided IV. - patient had an ABG PO2 75. Bicarb 19. - patient becomes obtunded, her blood pressure drops and her O2 saturation goes between 90-92% on room air and once she is given Narcan she is alert and her blood pressure rises to 120s/70s therefore I believe that this is opioid overdose not Sepsis and patient has already received 1.2 mg of Narcan since she has arrived here therefore will start on a Narcan drip of 1 mg/hr. - UA WNL no evidence of UTI. - CT scan of abdomen and pelvis revealed chronic changes no acute processes noted. Time: 12:42 Additional Reevaluation(s): 14:10PM - JENNIFER Lyn was able to draw the patient's labs and labs at this time are returning and revealed - chloride 110 - BUN 17 - glucose 207 - troponin 3.9 - patient negative for RSV/flu/COVID. - patient is now on a Narcan drip and her vitals are stable and she is now more alert or I do not have to perform any midsternal rubs at this time since I started a Narcan drip. - awaiting all other labs and plan is to admit for opioid overdose with IV Narcan drip in place. Patient understands agrees with this plan. 16:06 - Dr. Galvan the signal maintainer helper came to evaluate the patient and he recommended titrating the Narcan IV drip .5 mg and for it to be titrated down every 4 hours he told the hospitalist and due to patient not requiring oxygen she can go to the intermediate care. Therefore patient will be admitted at this time she is now alert and orientated no longer somnolence. - Dr. augustin also recommended NO SUPPLEMENTAL OXYGEN - she did come out positive for benzos and opioids. - patient will be admitted to intermediate Care on the hospitalist service to Dr. Hilario [facility] - Fall Medical Records Attestation: I reviewed the patient's medical records. Lab Data Attestation: I reviewed the patient's lab results. Result diagrams: 05/12/20 12:58 05/12/20 12:58 Labs: Lab Results 05/12/20 05/12/20 05/12/20 Range/Units 12:05 12:34 12:35 WBC (4.8-10.8) X10*3/uL RBC (4.20-5.50) X10*6/uL Hgb (12.0-16.0) g/dl Hct (37-47) % MCV (80-98) fL MCH (27.0-33.0) pg MCHC (31.0-35.0) g/dl RDW (11.0-16.0) % Plt Count (160-400) X10*3/uL MPV (9.4-12.3) fL Immature Gran % (Auto) (0.0-0.4) % Neut % (Auto) (45-73) % Lymph % (Auto) (20-40) % [place] % (Auto) (2-11) % Eos % (Auto) (0-4) % Baso % (Auto) (0-2) % Lymph # (Auto) (1.2-4.9) X10*3/uL [place] # (Auto) (0.1-1.2) X10*3/uL Eos # (Auto) (0.0-0.4) X10*3/uL Baso # (Auto) (0.0-0.2) X10*3/uL Abs Immat Gran (auto) (0.00-0.03) X10*3/uL Absolute Neuts (auto) (2.0-8.3) X10*3/uL Absolute Nucleated RBC (0.0-0.012) X10*3/uL Nucleated RBC % (auto) (0.0-0.2) /100WBC PT (10.8-13.0) SEC INR (0.9-1.1) ABG pH 7.35 (7.35-7.45) ABG pCO2 35 (32-45) mmHg ABG pO2 75 L (83-108) mmHg ABG HCO3 19 L (22-26) mmol/L ABG O2 Saturation 93.0 % ABG Base Excess -5.1 Oxygen Given ROOM AIR Sodium (135-145) mmol/L Potassium (3.3-5.1) mmol/L Chloride (96-108) mmol/L Carbon Dioxide (22-29) mmol/L Anion Gap (12-20) BUN (9-16) mg/dL Creatinine (0.5-1.4) mg/dL Estim Creat Clear Calc Estimated GFR POC Glucose (60-115) mg/dL Random Glucose (60-115) mg/dL Lactic Acid (0.5-2.0) mmol/L Calcium (8.4-10.2) mg/dL Magnesium (1.6-2.6) mg/dL Total Bilirubin (0.0-1.0) mg/dL Direct Bilirubin (0.0-0.5) mg/dL AST (5-31) U/L ALT (0-31) U/L Alkaline Phosphatase (39-117) U/L Ammonia (13-55) umol/L Total Creatine Kinase (26-140) U/L Troponin I High Sens (<3.5-17.0) ng/L B-Natriuretic Peptide (<100) pg/mL Total Protein (6.5-8.0) g/dL Albumin (3.5-5.0) g/dL Urine Color YELLOW Urine Appearance CLEAR Urine pH 7.5 (5.0-8.0) Ur Specific [place] 1.010 (1.005-1.025) Urine Protein NEG (NEG-TRACE) MG/DL Urine Glucose (UA) >=1000 H (NEG) MG/DL Urine Ketones NEG (NEG) MG/DL Urine Blood 1+ H (NEG) Urine Nitrite NEG (NEG) Ur Leukocyte Esterase NEG (NEG) Urine RBC 1-4 (0) /HPF Urine WBC 0 (0-4) /HPF Ur Squamous Epith Cells NONE /LPF Urine Bacteria NONE /LPF Urine Opiates Screen (Not Detect) Ur Barbiturates Screen (Not Detect) Ur Phencyclidine Scrn (Not Detect) Ur Amphetamines Screen (Not Detect) U Benzodiazepines Scrn (Not Detect) Urine Cocaine Screen (Not Detect) U Marijuana (THC) Screen (Not Detect) Ethyl Alcohol mg/dL Coronavirus (PCR) NEGATIVE (Negative) Influenza Type A (PCR) NEGATIVE (Negative) Influenza Type B (PCR) NEGATIVE (Negative) RSV RNA Qual (PCR) NEGATIVE (Negative) 05/12/20 05/12/20 05/12/20 Range/Units 12:35 12:58 12:58 WBC 7.7 (4.8-10.8) X10*3/uL RBC 3.88 L (4.20-5.50) X10*6/uL Hgb 12.2 (12.0-16.0) g/dl Hct 37.2 (37-47) % MCV 95.9 (80-98) fL MCH 31.4 (27.0-33.0) pg MCHC 32.8 (31.0-35.0) g/dl RDW 12.3 (11.0-16.0) % Plt Count 200 (160-400) X10*3/uL MPV 9.8 (9.4-12.3) fL Immature Gran % (Auto) 0.3 (0.0-0.4) % Neut % (Auto) 58.8 (45-73) % Lymph % (Auto) 32.5 (20-40) % [place] % (Auto) 7.1 (2-11) % Eos % (Auto) 1.0 (0-4) % Baso % (Auto) 0.3 (0-2) % Lymph # (Auto) 2.5 (1.2-4.9) X10*3/uL [place] # (Auto) 0.6 (0.1-1.2) X10*3/uL Eos # (Auto) 0.1 (0.0-0.4) X10*3/uL Baso # (Auto) 0.0 (0.0-0.2) X10*3/uL Abs Immat Gran (auto) 0.02 (0.00-0.03) X10*3/uL Absolute Neuts (auto) 4.6 (2.0-8.3) X10*3/uL Absolute Nucleated RBC 0.000 (0.0-0.012) X10*3/uL Nucleated RBC % (auto) 0.0 (0.0-0.2) /100WBC PT (10.8-13.0) SEC INR (0.9-1.1) ABG pH (7.35-7.45) ABG pCO2 (32-45) mmHg ABG pO2 (83-108) mmHg ABG HCO3 (22-26) mmol/L ABG O2 Saturation % ABG Base Excess Oxygen Given Sodium 142 (135-145) mmol/L Potassium 3.8 (3.3-5.1) mmol/L Chloride 110 H (96-108) mmol/L Carbon Dioxide 23 (22-29) mmol/L Anion Gap 13 (12-20) BUN 17 H (9-16) mg/dL Creatinine 0.81 (0.5-1.4) mg/dL Estim Creat Clear Calc 77.4 Estimated GFR > 60 POC Glucose (60-115) mg/dL Random Glucose 207 H D (60-115) mg/dL Lactic Acid (0.5-2.0) mmol/L Calcium 8.8 (8.4-10.2) mg/dL Magnesium 2.1 (1.6-2.6) mg/dL Total Bilirubin 0.2 (0.0-1.0) mg/dL Direct Bilirubin < 0.2 (0.0-0.5) mg/dL AST 14 (5-31) U/L ALT 12 (0-31) U/L Alkaline Phosphatase 96 (39-117) U/L Ammonia (13-55) umol/L Total Creatine Kinase (26-140) U/L Troponin I High Sens (<3.5-17.0) ng/L B-Natriuretic Peptide (<100) pg/mL Total Protein 7.2 (6.5-8.0) g/dL Albumin 4.1 (3.5-5.0) g/dL Urine Color Urine Appearance Urine pH (5.0-8.0) Ur Specific [place] (1.005-1.025) Urine Protein (NEG-TRACE) MG/DL Urine Glucose (UA) (NEG) MG/DL Urine Ketones (NEG) MG/DL Urine Blood (NEG) Urine Nitrite (NEG) Ur Leukocyte Esterase (NEG) Urine RBC (0) /HPF Urine WBC (0-4) /HPF Ur Squamous Epith Cells /LPF Urine Bacteria /LPF Urine Opiates Screen POSITIVE H (Not Detect) Ur Barbiturates Screen Not Detected (Not Detect) Ur Phencyclidine Scrn Not Detected (Not Detect) Ur Amphetamines Screen Not Detected (Not Detect) U Benzodiazepines Scrn POSITIVE H (Not Detect) Urine Cocaine Screen Not Detected (Not Detect) U Marijuana (THC) Screen Not Detected (Not Detect) Ethyl Alcohol mg/dL Coronavirus (PCR) (Negative) Influenza Type A (PCR) (Negative) Influenza Type B (PCR) (Negative) RSV RNA Qual (PCR) (Negative) 05/12/20 05/12/20 05/12/20 Range/Units 12:58 12:58 13:56 WBC (4.8-10.8) X10*3/uL RBC (4.20-5.50) X10*6/uL Hgb (12.0-16.0) g/dl Hct (37-47) % MCV (80-98) fL MCH (27.0-33.0) pg MCHC (31.0-35.0) g/dl RDW (11.0-16.0) % Plt Count (160-400) X10*3/uL MPV (9.4-12.3) fL Immature Gran % (Auto) (0.0-0.4) % Neut % (Auto) (45-73) % Lymph % (Auto) (20-40) % [place] % (Auto) (2-11) % Eos % (Auto) (0-4) % Baso % (Auto) (0-2) % Lymph # (Auto) (1.2-4.9) X10*3/uL [place] # (Auto) (0.1-1.2) X10*3/uL Eos # (Auto) (0.0-0.4) X10*3/uL Baso # (Auto) (0.0-0.2) X10*3/uL Abs Immat Gran (auto) (0.00-0.03) X10*3/uL Absolute Neuts (auto) (2.0-8.3) X10*3/uL Absolute Nucleated RBC (0.0-0.012) X10*3/uL Nucleated RBC % (auto) (0.0-0.2) /100WBC PT (10.8-13.0) SEC INR (0.9-1.1) ABG pH (7.35-7.45) ABG pCO2 (32-45) mmHg ABG pO2 (83-108) mmHg ABG HCO3 (22-26) mmol/L ABG O2 Saturation % ABG Base Excess Oxygen Given Sodium (135-145) mmol/L Potassium (3.3-5.1) mmol/L Chloride (96-108) mmol/L Carbon Dioxide (22-29) mmol/L Anion Gap (12-20) BUN (9-16) mg/dL Creatinine (0.5-1.4) mg/dL Estim Creat Clear Calc Estimated GFR POC Glucose (60-115) mg/dL Random Glucose (60-115) mg/dL Lactic Acid 1.3 (0.5-2.0) mmol/L Calcium (8.4-10.2) mg/dL Magnesium (1.6-2.6) mg/dL Total Bilirubin (0.0-1.0) mg/dL Direct Bilirubin (0.0-0.5) mg/dL AST (5-31) U/L ALT (0-31) U/L Alkaline Phosphatase (39-117) U/L Ammonia (13-55) umol/L Total Creatine Kinase 122 (26-140) U/L Troponin I High Sens 3.9 (<3.5-17.0) ng/L B-Natriuretic Peptide 66 (<100) pg/mL Total Protein (6.5-8.0) g/dL Albumin (3.5-5.0) g/dL Urine Color Urine Appearance Urine pH (5.0-8.0) Ur Specific [place] (1.005-1.025) Urine Protein (NEG-TRACE) MG/DL Urine Glucose (UA) (NEG) MG/DL Urine Ketones (NEG) MG/DL Urine Blood (NEG) Urine Nitrite (NEG) Ur Leukocyte Esterase (NEG) Urine RBC (0) /HPF Urine WBC (0-4) /HPF Ur Squamous Epith Cells /LPF Urine Bacteria /LPF Urine Opiates Screen (Not Detect) Ur Barbiturates Screen (Not Detect) Ur Phencyclidine Scrn (Not Detect) Ur Amphetamines Screen (Not Detect) U Benzodiazepines Scrn (Not Detect) Urine Cocaine Screen (Not Detect) U Marijuana (THC) Screen (Not Detect) Ethyl Alcohol mg/dL Coronavirus (PCR) (Negative) Influenza Type A (PCR) (Negative) Influenza Type B (PCR) (Negative) RSV RNA Qual (PCR) (Negative) 05/12/20 05/12/20 05/12/20 Range/Units 13:56 13:57 13:57 WBC (4.8-10.8) X10*3/uL RBC (4.20-5.50) X10*6/uL Hgb (12.0-16.0) g/dl Hct (37-47) % MCV (80-98) fL MCH (27.0-33.0) pg MCHC (31.0-35.0) g/dl RDW (11.0-16.0) % Plt Count (160-400) X10*3/uL MPV (9.4-12.3) fL Immature Gran % (Auto) (0.0-0.4) % Neut % (Auto) (45-73) % Lymph % (Auto) (20-40) % [place] % (Auto) (2-11) % Eos % (Auto) (0-4) % Baso % (Auto) (0-2) % Lymph # (Auto) (1.2-4.9) X10*3/uL [place] # (Auto) (0.1-1.2) X10*3/uL Eos # (Auto) (0.0-0.4) X10*3/uL Baso # (Auto) (0.0-0.2) X10*3/uL Abs Immat Gran (auto) (0.00-0.03) X10*3/uL Absolute Neuts (auto) (2.0-8.3) X10*3/uL Absolute Nucleated RBC (0.0-0.012) X10*3/uL Nucleated RBC % (auto) (0.0-0.2) /100WBC PT 11.0 (10.8-13.0) SEC INR 0.9 (0.9-1.1) ABG pH (7.35-7.45) ABG pCO2 (32-45) mmHg ABG pO2 (83-108) mmHg ABG HCO3 (22-26) mmol/L ABG O2 Saturation % ABG Base Excess Oxygen Given Sodium (135-145) mmol/L Potassium (3.3-5.1) mmol/L Chloride (96-108) mmol/L Carbon Dioxide (22-29) mmol/L Anion Gap (12-20) BUN (9-16) mg/dL Creatinine (0.5-1.4) mg/dL Estim Creat Clear Calc Estimated GFR POC Glucose (60-115) mg/dL Random Glucose (60-115) mg/dL Lactic Acid (0.5-2.0) mmol/L Calcium (8.4-10.2) mg/dL Magnesium (1.6-2.6) mg/dL Total Bilirubin (0.0-1.0) mg/dL Direct Bilirubin (0.0-0.5) mg/dL AST (5-31) U/L ALT (0-31) U/L Alkaline Phosphatase (39-117) U/L Ammonia 50 (13-55) umol/L Total Creatine Kinase (26-140) U/L Troponin I High Sens (<3.5-17.0) ng/L B-Natriuretic Peptide (<100) pg/mL Total Protein (6.5-8.0) g/dL Albumin (3.5-5.0) g/dL Urine Color Urine Appearance Urine pH (5.0-8.0) Ur Specific [place] (1.005-1.025) Urine Protein (NEG-TRACE) MG/DL Urine Glucose (UA) (NEG) MG/DL Urine Ketones (NEG) MG/DL Urine Blood (NEG) Urine Nitrite (NEG) Ur Leukocyte Esterase (NEG) Urine RBC (0) /HPF Urine WBC (0-4) /HPF Ur Squamous Epith Cells /LPF Urine Bacteria /LPF Urine Opiates Screen (Not Detect) Ur Barbiturates Screen (Not Detect) Ur Phencyclidine Scrn (Not Detect) Ur Amphetamines Screen (Not Detect) U Benzodiazepines Scrn (Not Detect) Urine Cocaine Screen (Not Detect) U Marijuana (THC) Screen (Not Detect) Ethyl Alcohol < 10 mg/dL Coronavirus (PCR) (Negative) Influenza Type A (PCR) (Negative) Influenza Type B (PCR) (Negative) RSV RNA Qual (PCR) (Negative) 05/12/20 Range/Units 13:59 WBC (4.8-10.8) X10*3/uL RBC (4.20-5.50) X10*6/uL Hgb (12.0-16.0) g/dl Hct (37-47) % MCV (80-98) fL MCH (27.0-33.0) pg MCHC (31.0-35.0) g/dl RDW (11.0-16.0) % Plt Count (160-400) X10*3/uL MPV (9.4-12.3) fL Immature Gran % (Auto) (0.0-0.4) % Neut % (Auto) (45-73) % Lymph % (Auto) (20-40) % [place] % (Auto) (2-11) % Eos % (Auto) (0-4) % Baso % (Auto) (0-2) % Lymph # (Auto) (1.2-4.9) X10*3/uL [place] # (Auto) (0.1-1.2) X10*3/uL Eos # (Auto) (0.0-0.4) X10*3/uL Baso # (Auto) (0.0-0.2) X10*3/uL Abs Immat Gran (auto) (0.00-0.03) X10*3/uL Absolute Neuts (auto) (2.0-8.3) X10*3/uL Absolute Nucleated RBC (0.0-0.012) X10*3/uL Nucleated RBC % (auto) (0.0-0.2) /100WBC PT (10.8-13.0) SEC INR (0.9-1.1) ABG pH (7.35-7.45) ABG pCO2 (32-45) mmHg ABG pO2 (83-108) mmHg ABG HCO3 (22-26) mmol/L ABG O2 Saturation % ABG Base Excess Oxygen Given Sodium (135-145) mmol/L Potassium (3.3-5.1) mmol/L Chloride (96-108) mmol/L Carbon Dioxide (22-29) mmol/L Anion Gap (12-20) BUN (9-16) mg/dL Creatinine (0.5-1.4) mg/dL Estim Creat Clear Calc Estimated GFR POC Glucose 128 H (60-115) mg/dL Random Glucose (60-115) mg/dL Lactic Acid (0.5-2.0) mmol/L Calcium (8.4-10.2) mg/dL Magnesium (1.6-2.6) mg/dL Total Bilirubin (0.0-1.0) mg/dL Direct Bilirubin (0.0-0.5) mg/dL AST (5-31) U/L ALT (0-31) U/L Alkaline Phosphatase (39-117) U/L Ammonia (13-55) umol/L Total Creatine Kinase (26-140) U/L Troponin I High Sens (<3.5-17.0) ng/L B-Natriuretic Peptide (<100) pg/mL Total Protein (6.5-8.0) g/dL Albumin (3.5-5.0) g/dL Urine Color Urine Appearance Urine pH (5.0-8.0) Ur Specific [place] (1.005-1.025) Urine Protein (NEG-TRACE) MG/DL Urine Glucose (UA) (NEG) MG/DL Urine Ketones (NEG) MG/DL Urine Blood (NEG) Urine Nitrite (NEG) Ur Leukocyte Esterase (NEG) Urine RBC (0) /HPF Urine WBC (0-4) /HPF Ur Squamous Epith Cells /LPF Urine Bacteria /LPF Urine Opiates Screen (Not Detect) Ur Barbiturates Screen (Not Detect) Ur Phencyclidine Scrn (Not Detect) Ur Amphetamines Screen (Not Detect) U Benzodiazepines Scrn (Not Detect) Urine Cocaine Screen (Not Detect) U Marijuana (THC) Screen (Not Detect) Ethyl Alcohol mg/dL Coronavirus (PCR) (Negative) Influenza Type A (PCR) (Negative) Influenza Type B (PCR) (Negative) RSV RNA Qual (PCR) (Negative) Imaging Data CT scan of brain: Attestation: I personally reviewed and interpreted this imaging study as follows: Radiologist's impression: FINDINGS: There is no intracranial hemorrhage, hematoma, or extra-axial fluid collection. The ventricles are normal in size. There is no hydrocephalus, edema, or mass effect. The roy-white matter differentiation appears symmetric. There is no visible acute territorial infarct or mass lesion. The calvarium appears intact. There is no pneumocephalus or orbital emphysema. The visualized sinuses and middle ears and mastoid air cells show no significant mucosal thickening. There are no air-fluid levels. CT/CT head/brain wo con IMPRESSION: No acute intracranial abnormality. CT scan cervical spine: Attestation: I personally reviewed and interpreted this imaging study as follows: Radiologist's impression: FINDINGS: Motion artifact degrading images, with associated limitations. Atlantooccipital and atlantoaxial relations are maintained. Mild right convex curvature of the cervical spine. On the sagittal sequences, posterior alignment is maintained. Predens space is maintained. Vertebral body heights are maintained. No acute fracture is identified. Moderate disc degeneration from C6-T1. No prevertebral soft tissue swelling. Mild biapical pleural parenchymal scarring. Right-sided port is partially visualized. No suspicious findings in the thyroid gland. CT/CT cervical spine wo con IMPRESSION: 1. On the provided images, no acute fracture or subluxation is identified. Motion artifact is degrading images, with associated limitation in evaluation. Please clinically correlate. A repeat CT scan can be obtained for further evaluation as slightly warranted. 2. Moderate disc degeneration from C6-T1. CT scan of abdomen and pelvis without contrast: Attestation: I personally reviewed and interpreted this imaging study as follows: Radiologist's impression: FINDINGS: LUNG BASES: Mild bibasilar atelectasis. LIVER, GALLBLADDER, AND BILIARY TREE: Redemonstrated are areas of ill-defined low attenuation in the liver. These are suboptimally visualized and evaluated on this noncontrast CT, but appreciated on the prior contrast CT of 12/02/2019. No perihepatic fluid is seen. The gallbladder is nondistended/contracted, evaluation is limited. CBD measures 7 mm distally, similar to previous. PANCREAS: Diffuse atrophy of the pancreas is redemonstrated. The previously noted cystic foci in the head of the pancreas are not well seen on the current noncontrast study, better appreciated on the prior contrast-enhanced CT. SPLEEN: Unremarkable. No perisplenic fluid is seen. ADRENAL GLANDS: Unremarkable. KIDNEYS AND URETERS: No calculi. No hydronephrosis. No suspicious lesions identified. No perinephric fluid. BLADDER: Unremarkable. GASTROINTESTINAL TRACT: Cadqnovy-lz-hpbxi volume fecal matter in the large colon. The stomach and small bowel are not dilated. No evidence of colitis or diverticulitis. No free fluid. No free air is seen. ABDOMINAL WALL: Gastric stimulator generator pack seen in the anterior abdomen. There is stranding in the subcutaneous tissues of the right abdominal wall, which was seen on the prior study, as well. No significant abdominal wall hernia is identified. LYMPH NODES: No adenopathy seen. VASCULAR: Normal caliber aorta. PELVIC VISCERA: Within normal limits. OSSEOUS STRUCTURES: Patient is rotated to the right. Redemonstrated is heterogeneous appearance of the bones. Heterogeneity/lucency of the left iliac bone is redemonstrated, stable from previous. There are lucencies in the L3 and L4 vertebral body, similar to previous. Vertebral body heights are maintained. No acute fractures identified. Degenerative changes in the spine. No acute fracture is otherwise seen. There is air seen in the right SI joint, and small foci of air in the left SI joint, which was also present in the prior study, and may be related to vacuum phenomenon. CT/CT abdomen pelvis wo con IMPRESSION: 1. No acute findings are identified in the abdomen or pelvis. 2. Ill-defined areas of low densities in the liver, suboptimally visualized on noncontrast CT. These were present and better appreciated on the prior contrast enhanced CT of 12/02/2019. 3. There is stranding in the subcutaneous tissues of the right abdominal wall, which are present on the prior study, as well. 4. Patient is rotated to the right, somewhat limiting evaluation. No acute fracture is identified. Diffuse heterogeneity of the osseous structures, including areas of lucency within the bones. These appear unchanged as compared to previous. These are of uncertain etiology. Further evaluation with followup bone scan can be obtained as clinically warranted. Left elbow x-ray: Attestation: I personally reviewed and interpreted this imaging study as follows: Radiologist's impression: FINDINGS: There is no fracture, dislocation, or elbow capsular effusion. No joint narrowing or erosive change. Bony mineralization unremarkable. XR/XR elbow LT min 3V IMPRESSION: No fracture, dislocation, or elbow capsular effusion. Left knee x-ray: Attestation: I personally reviewed and interpreted this imaging study as follows: Radiologist's impression: FINDINGS: There no fracture, dislocation, or destructive process. There are tricompartment osteoarthritic changes again noted, greatest medial knee joint compartment with mild joint narrowing and osteophytes. There is no erosive change or definite chondrocalcinosis. There is trace thickening suprapatellar bursa which may represent trace effusion. Hoffa's fat pad appears normal. There is spurring at the quadriceps insertion patella. There is extensive vascular calcification, partly M?nckeberg medial calcific sclerosis.? XR/XR knee LT 4V IMPRESSION: 1. No fracture or dislocation. 2. Tricompartment osteoarthritis. Probable trace effusion. ECG Data Attestation: I personally reviewed and interpreted this ECG as follows: ECG interpretation date: 05/12/20 ECG interpretation time: 09:57 Interpretation: - EKG is normal sinus rhythm with a ventricular rate of 69 with a normal GA interval normal QRS duration normal QT/QTC interval. No acute ischemic changes noted. SIMILAR WHEN COMPARED TO PRIOR EKG ON 04/10/2020 Critical Care Time Critical Care Time Critical Care Time: Yes Total Critical Care Time: 60 Attestation: I personally attest to this time spent taking care of the patient Discharge Plan Discharge Clinical Impression: Fall, Opioid overdose, Accidental overdose Patient Disposition: Admitted As Inpatient
[2020-05-12] MEDS: 0.9 % Sodium Chloride 1,000 ML 999 ML IVCONT ×2 (10:27→12:43)
[2020-05-12] MEDS: Naloxone HCl 0.4 MG/ML VIAL IVPUSH ×3 (10:27→11:45)
[2020-05-12] MEDS: ondansetron HCL 4 MG/2 ML VIAL IVPUSH (10:27)
[2020-05-12 12:10] LABS: Pt Ventilation O2% ROOM AIR
[2020-05-12 12:16] LABS: ABG PCO2 35 mmHg (32-45); Base Excess ABG -5.1; HCO3 ABG 19 mmol/L (22-26); PO2 ABG 75 mmHg (83-108); pH ABG 7.35 (7.35-7.45)
[2020-05-12 12:45] LABS: Glucose Urine UA >=1000 MG/DL (NEG); Leukocyte Esterase Urine NEG (NEG); Nitrite Urine NEG (NEG); PH 7.5 (5.0-8.0); Urine Blood 1+ (NEG); Urine Ketones NEG (NEG); Urine Protein NEG (NEG-TRACE)
[2020-05-12 12:46] LABS: Appearance Urine CLEAR; Color Urine YELLOW
[2020-05-12 13:04] LABS: MANUAL DIFF FLAG NO
[2020-05-12 13:07] LABS: WBC Urine 0 /HPF (0-4)
[2020-05-12 13:11] LABS: Basophils Percent Auto 0.3 % (0-2); Eosinophils Absolute Auto 0.1 X10*3/uL (0.0-0.4); Hematocrit 37.2 % (37-47); Hemoglobin 12.2 g/dl (12.0-16.0); Imm Gran Abs Auto 0.02 X10*3/uL (0.00-0.03); Imm Gran Pct Auto 0.3 % (0.0-0.4); Lymphocytes Absolute Auto 2.5 X10*3/uL (1.2-4.9); Lymphocytes Percent Auto 32.5 % (20-40); Mean Corpuscular HGB Conc 32.8 g/dl (31.0-35.0); Mean Corpuscular Hemoglobin 31.4 pg (27.0-33.0); Mean Corpuscular Volume 95.9 fL (80-98); Mean Platelet Volume 9.8 fL (9.4-12.3); Monocytes Absolute Auto 0.6 X10*3/uL (0.1-1.2); Monocytes Percent Auto 7.1 % (2-11); Neutrophils Absolute Auto 4.6 X10*3/uL (2.0-8.3); Neutrophils Percent Auto 58.8 % (45-73); Platelet Count 200 X10*3/uL (160-400); Red Blood Count 3.88 X10*6/uL (4.20-5.50); Red Cell Distribution Width 12.3 % (11.0-16.0); White Blood Count 7.7 X10*3/uL (4.8-10.8)
[2020-05-12 13:40] LABS: Alanine Aminotransferase 12 U/L (0-31); Albumin Level 4.1 g/dL (3.5-5.0); Alkaline Phosphatase 96 U/L (39-117); Anion Gap 13 (12-20); Aspartate Amino Transferase 14 U/L (5-31); Bilirubin Direct < 0.2 mg/dL (0.0-0.5); Bilirubin Total 0.2 mg/dL (0.0-1.0); Blood Urea Nitrogen 17 mg/dL (9-16); Calcium 8.8 mg/dL (8.4-10.2); Carbon Dioxide 23 mmol/L (22-29); Chloride 110 mmol/L (96-108); Creatinine Clr Calc Pharmacy 77.4; Estimated Glomerular Filt Rate > 60; Glucose Random 207 mg/dL (60-115); Magnesium 2.1 mg/dL (1.6-2.6); Potassium 3.8 mmol/L (3.3-5.1); Sodium 142 mmol/L (135-145); Total Protein 7.2 g/dL (6.5-8.0)
[2020-05-12 13:44] LABS: B Type Natriuretic Peptide 66 pg/mL (<100); Troponin-I High Sensitivity 3.9 ng/L (<3.5-17.0)
[2020-05-12 13:51] LABS: Influenza A PCR NEGATIVE (Negative); Influenza B PCR NEGATIVE (Negative); Resp Syncy Virus RNA Qual PCR NEGATIVE (Negative); SARS COV2 PCR INHOUSE NEGATIVE (Negative)
[2020-05-12 14:03] LABS: Glucose, Whole Blood 128 mg/dL (60-115)
[2020-05-12 14:14] LABS: INTERNATIONAL NORM RATIO 0.9 (0.9-1.1)
[2020-05-12 14:27] LABS: Amphetamine Screen Urine Not Detected (Not Detect); Barbiturates, Urine Not Detected (Not Detect); Benzodiazepines Screen Urine POSITIVE (Not Detect); Cannabinoid Screen Urine Not Detected (Not Detect); Cocaine Screen Urine Not Detected (Not Detect); Opiate Screen Urine POSITIVE (Not Detect); Phencyclidine Screen Urine Not Detected (Not Detect)
[2020-05-12 14:30] LABS: Ammonia 50 umol/L (13-55)
[2020-05-12 14:33] LABS: Lactic Acid 1.3 mmol/L (0.5-2.0)
[2020-05-12 14:35] LABS: Ethanol < 10 mg/dL
--- NOTE | 2020-05-12 15:07 | P.CONCC_ITS ---
History of Present Illness Data of Consult Service Date: 05/12/20 Requesting physician: Felicia Urbano Primary Care Provider: Unknown Physician HPI I was asked to see Mrs. Mcqueen who required a Narcan drip in the ED. The patient is a 60-year-old female who is currently wheelchair-bound with a past medical history of below the knee amputation of the left leg, insulin- dependent diabetes (on insulin), CAD, hypertension, and chronic pain syndrome. I?m told that she is currently on 4 mg of Dilaudid along with Xanax and gabapentin. She was BIBA to the ED this morning via EMS with C-collar placed after she reports having a unwitnessed mechanical fall in the bathroom while trying to pull her pants up. ? head injury. She is unsure if she lost consciousness. In the ED, she was complaining of left elbow/left knee and lower back pain. She denied any symptoms prior to the fall. In the ED, initial RR was 14-16, sat was 95-100% on room air. She was very somnolent although easily arousable, otherwise Oriented X3. No acute distress. Pupils were normal. Neuro exam unremarkable. Labs, including ABG, were generally unremarkable. The patient subsequently became hypotensive and obtunded. She was given two doses of 0.4 IV Narcan for opioid overdose and became responsive and her BP lacie. Later, her BP dropped again and she became obtunded again, Sat?s were dropping to 90%. Another dose of 0.4 IV Narcan given and she woke up and blood pressure came back up. She was started on a Narcan drip. On my exam in the ED, she was on a Narcan drip at 1mg/hr. Easily arousable and her mentation seemed probably baseline to me. Breathing easy with RR about 18 with excellent excursion. Sat was 100% on room air while wearing her COVID mask. BP 164/74. Pupils about 5mm. IMPRESSION: Unintentional opiate ?overdose? altho in fact, it?s probably the combination of the opiate, the Xanax, and the gabapentin that?s responsible for her obtundation and sympathetic ?denervation?. It?s just easiest to treat her with the Narcan drip. I discussed with CHRISTOFER Urbano at the bedside. My recommendations: 1. NO OXYGEN! Everybody caring for this patient must appreciate that hypoventilation is the major danger here -- i.e. simply breathing. Breathing is the only thing that counts. The best way to monitor her breathing is to monitor the Sat on room air. Applying supplemental oxygen will mask hypoventilation-ind uced hypoxemia. So she should be deliberately given no supplemental oxygen. If she requires supplemental oxygen, she will need to be admitted to the ICU. 2. Narcan drip at 0.5 mg/hr. 3. Taper the Narcan drip by 0.1 mg/hr every four hours, while watching the room air Sat. If the Sat stays the same or within 1-2%, that tells you that the drop in the Narcan drip was well tolerated. If the room air Sat drops by more than, say 2%, the Narcan drip should be turned back up and try turning it down again in another four hours. Again, NO SUPPLEMENTAL OXYGEN! 4. Following the guidelines above, she may be admitted to [facility] with complete safety and security. Any problems, call me 10/10 on my cell, , or [place]-text me. Time: 40 min. ([id number].) [facility] Past Medical History Medical History Anxiety Below knee amputation CAD (coronary artery disease) Chronic pain syndrome Depression Gastroparesis History of gastrostomy tube placement HTN (hypertension) IDDM (insulin dependent diabetes mellitus) Liver lesion Wheelchair bound Surgical History Surgical History Hx of BKA Social History Social History Alcohol intake: never Smoking Status: Never smoker Use of substances other than those prescribed or required for medical reasons: Unknown Advance Directives: No Advance Directives Information Provided: No Meds Allergies Allergy/AdvReac Type Severity Reaction Status Date / Time Penicillins [PENICILLINS] Allergy Mild HIVES Verified 04/10/20 23:28 clarithromycin [From Biaxin] Allergy Unknown HIVES Verified 04/10/20 23:28 penicillin V Allergy Unknown rash, Verified 04/10/20 23:28 throat tight bioxin Allergy Unknown Unknown Uncoded 04/10/20 23:28 penicillin Allergy Unknown Unknown Uncoded 04/10/20 23:28 Active Medications: Current Medications Generic Name Dose Route Start Last Admin Trade Name Pjq PRN Reason Stop Dose Admin Naloxone HCl 5 mg/ Dextrose 105 mls @ 21 mls/hr 05/12/20 12:45 05/12/20 13:46 IV 1 mg/hr .Q5H SANTI 21 mls/hr Administration 1 MG/HR Pharmacy Consult 1 each 05/12/20 10:51 Consult Rx Perform Med Rec MISCELLANE ONCE PRN Consult order Home Medications Medication Instructions Recorded Confirmed Last Taken Type alprazolam [Xanax] 1 mg PO TID 04/10/20 05/12/20 Unknown History kilkmlbqrb-ozdpywodwjmjk-szkr 1 tab PO TID PRN 04/10/20 05/12/20 Unknown History [Fioricet] hydromorphone 4 mg PO 5XD 04/10/20 05/12/20 Unknown History promethazine 25 mg PO TID PRN 04/10/20 05/12/20 Unknown History amitriptyline 50 mg PO BEDTIME 05/12/20 05/12/20 Unknown History amlodipine 5 mg PO DAILY 05/12/20 05/12/20 Unknown History aspirin 81 mg PO DAILY 05/12/20 05/12/20 Unknown History atorvastatin 80 mg PO DAILY 05/12/20 05/12/20 Unknown History bisacodyl 5 mg PO BID PRN 05/12/20 05/12/20 Unknown History gabapentin 300 mg PO TID 05/12/20 05/12/20 Unknown History insulin regular hum U-500 conc 200 unit SUBCUT BEDTIME 05/12/20 05/12/20 Unknown History [Humulin R U-500 (Conc) Insulin] insulin regular hum U-500 conc 250 unit SUBCUT QAM 05/12/20 05/12/20 Unknown History [Humulin R U-500 (Conc) Insulin] isosorbide mononitrate 30 mg PO DAILY 05/12/20 05/12/20 Unknown History lactulose 20 g PO TID PRN 05/12/20 05/12/20 Unknown History losartan 100 mg PO DAILY 05/12/20 05/12/20 Unknown History metoclopramide HCl 10 mg PO Q6H PRN 05/12/20 05/12/20 Unknown History metoprolol succinate 100 mg PO BID 05/12/20 05/12/20 Unknown History niacin 1,000 mg PO BEDTIME 05/12/20 05/12/20 Unknown History omeprazole 20 mg PO BID 05/12/20 05/12/20 Unknown History polyethylene glycol 3350 [Miralax] 17 g PO DAILY 05/12/20 05/12/20 Unknown History topiramate 100 mg PO BID 05/12/20 05/12/20 Unknown History Physical Exam Vital Signs: Vital Signs: Last Vital Signs Temp 98.0 F 05/12/20 12:55 Pulse 73 05/12/20 13:51 Resp 14 05/12/20 13:51 BP 117/51 L 05/12/20 13:51 Pulse Ox 95 05/12/20 12:55 Body Mass Index 31.7 Results Labs CBC & Chem 7: 05/12/20 12:58 05/12/20 12:58 Labs: Short CBC 05/12/20 Range/Units 12:58 WBC 7.7 (4.8-10.8) X10*3/uL Hgb 12.2 (12.0-16.0) g/dl Hct 37.2 (37-47) % Plt Count 200 (160-400) X10*3/uL BMP 05/12/20 12:58 Sodium 142 Potassium 3.8 Chloride 110 H Carbon Dioxide 23 BUN 17 H Creatinine 0.81 Calcium 8.8 Cardiac Enzymes 05/12/20 Range/Units 12:58 Total Creatine Kinase 122 (26-140) U/L Liver Function 05/12/20 Range/Units 12:58 Total Bilirubin 0.2 (0.0-1.0) mg/dL Direct Bilirubin < 0.2 (0.0-0.5) mg/dL AST 14 (5-31) U/L ALT 12 (0-31) U/L Alkaline Phosphatase 96 (39-117) U/L Albumin 4.1 (3.5-5.0) g/dL Urine 05/12/20 Range/Units 12:35 Urine Color YELLOW Urine Appearance CLEAR Urine pH 7.5 (5.0-8.0) Ur Specific [place] 1.010 (1.005-1.025) Urine Protein NEG (NEG-TRACE) MG/DL Urine Glucose (UA) >=1000 H (NEG) MG/DL
--- NOTE | 2020-05-12 15:16 | PC.NURSE ---
Upon shift as per Providers, Narcan drip ws decreased to .5mg/hr
--- NOTE | 2020-05-12 17:01 | P.HPHOSP_ITS ---
History of Present Illness Date of Service: 05/12/20 Chief Complaint: Status post fall , lethargic 60-year-old female chronic back pain on Dilaudid presented with status post fall, per patient she woke up this morning she went to bathroom on her wheelchair, she was very sleepy , per patient she slipped in the bathroom because of her socks, patient pulled the cord in her apartment, EMS was called, patient was brought to ER, in the ER patient was found to be very sleepy and patient was hypotensive, patient was given Narcan with some improvement in blood pressure and became more awake, patient's blood pressure dropped again and became more lethargic received another dose of Narcan with improvement, patient was evaluated by intensive care patient was started on Narcan drip, since mental status improved, patient became more alert patient was not requiring oxygen, given improvement in the mental status and being not hypoxic ICU recommended admit the patient to telemetry, patient seen and examined at bedside, patient is more awake now reporting back pain Review of Systems Constitutional: Constitutional: Reports weakness Cardiovascular: Cardiovascular: Denies leg edema and Denies dyspnea Respiratory: Respiratory: Denies dyspnea Gastrointestinal: Gastrointestinal: Denies vomiting Musculoskeletal: Musculoskeletal: Reports no additional musculoskeletal complaints Neurologic: Denies focal weakness and Reports weakness Psychiatric: Psychiatric: Reports no additional psychiatric complaints [facility] Medical History (Updated 05/12/20 @ 20:39 by Erin Pereyra, ILANA) Anxiety Below knee amputation CAD (coronary artery disease) Chronic pain syndrome Depression Gastroparesis History of gastrostomy tube placement HTN (hypertension) IDDM (insulin dependent diabetes mellitus) Liver lesion Myocardial infarction Wheelchair bound Surgical History Hx of BKA Social History (Updated 05/12/20 @ 20:39 by Erin Pereyra RN) Household Members: None Housing: Apartment Are you a primary primary care md to a significant other at home: No Do you presently have visiting nurse or other home services: Yes (vna and 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 If so, by whom?: No Do you feel safe in your current relationship?: No Current Relationship Is there a partner from a previous relationship who is making you feel unsafe now?: No Are you made to feel afraid or neglected: No Spiritual Healthcare Practices: n/a Advance Directives: No Advance Directives Information Provided: No Advance Directives on File: No Do you have thoughts of harming others: None Do you have a plan to hurt others: No Plan Recently lost weight without trying: No Meds Allergies Allergy/AdvReac Type Severity Reaction Status Date / Time Penicillins [PENICILLINS] Allergy Mild HIVES Verified 04/10/20 23:28 clarithromycin [From Biaxin] Allergy Unknown HIVES Verified 04/10/20 23:28 penicillin V Allergy Unknown rash, Verified 04/10/20 23:28 throat tight bioxin Allergy Unknown Unknown Uncoded 04/10/20 23:28 penicillin Allergy Unknown Unknown Uncoded 04/10/20 23:28 Active Medications: Current Medications Generic Name Dose Route Start Last Admin Trade Name Freq PRN Reason Stop Dose Admin Naloxone HCl 5 mg/ Dextrose 105 mls @ 21 mls/hr 05/12/20 12:45 05/12/20 13:46 IV 1 mg/hr .Q5H SANTI 21 mls/hr Administration 1 MG/HR Pharmacy Consult 1 each 05/12/20 10:51 Consult Rx Perform Med Rec MISCELLANE ONCE PRN Consult order Home Medications Medication Instructions Recorded Confirmed Last Taken Type alprazolam [Xanax] 1 mg PO TID 04/10/20 05/12/20 Unknown History [id number]-[id number]-kvmi 1 tab PO TID PRN 04/10/20 05/12/20 Unknown History [Fioricet] hydromorphone 4 mg PO 5XD 04/10/20 05/12/20 Unknown History promethazine 25 mg PO TID PRN 04/10/20 05/12/20 Unknown History amitriptyline 50 mg PO BEDTIME 05/12/20 05/12/20 Unknown History amlodipine 5 mg PO DAILY 05/12/20 05/12/20 Unknown History aspirin 81 mg PO DAILY 05/12/20 05/12/20 Unknown History atorvastatin 80 mg PO DAILY 05/12/20 05/12/20 Unknown History bisacodyl 5 mg PO BID PRN 05/12/20 05/12/20 Unknown History gabapentin 300 mg PO TID 05/12/20 05/12/20 Unknown History insulin regular hum U-500 conc 200 unit SUBCUT BEDTIME 05/12/20 05/12/20 Unknown History [Humulin R U-500 (Conc) Insulin] insulin regular hum U-500 conc 250 unit SUBCUT QAM 05/12/20 05/12/20 Unknown History [Humulin R U-500 (Conc) Insulin] isosorbide mononitrate 30 mg PO DAILY 05/12/20 05/12/20 Unknown History lactulose 20 g PO TID PRN 05/12/20 05/12/20 Unknown History losartan 100 mg PO DAILY 05/12/20 05/12/20 Unknown History metoclopramide HCl 10 mg PO Q6H PRN 05/12/20 05/12/20 Unknown History metoprolol succinate 100 mg PO BID 05/12/20 05/12/20 Unknown History niacin 1,000 mg PO BEDTIME 05/12/20 05/12/20 Unknown History omeprazole 20 mg PO BID 05/12/20 05/12/20 Unknown History polyethylene glycol 3350 [Miralax] 17 g PO DAILY 05/12/20 05/12/20 Unknown History topiramate 100 mg PO BID 05/12/20 05/12/20 Unknown History Physical Exam Vital Signs and Narrative: Vital Signs: Last Vital Signs Temp 98.4 F 05/12/20 16:35 Pulse 82 05/12/20 16:54 Resp 15 05/12/20 16:54 BP 162/59 H 05/12/20 16:54 Pulse Ox 97 05/12/20 16:54 Body Mass Index 31.7 Results Labs CBC and Chem 7: 05/13/20 05:27 05/13/20 05:27 Labs: Laboratory Results - last 24 hr 05/12/20 05/12/20 05/12/20 12:05 12:34 12:35 MCV MCH MCHC RDW Plt Count MPV Immature Gran % (Auto) Neut % (Auto) Lymph % (Auto) [place] % (Auto) Eos % (Auto) Baso % (Auto) Lymph # (Auto) [place] # (Auto) Eos # (Auto) Baso # (Auto) Abs Immat Gran (auto) Absolute Neuts (auto) Absolute Nucleated RBC Nucleated RBC % (auto) PT INR ABG pH 7.35 ABG pCO2 35 ABG pO2 75 L ABG HCO3 19 L ABG O2 Saturation 93.0 ABG Base Excess -5.1 Oxygen Given ROOM AIR Anion Gap Estim Creat Clear Calc Estimated GFR POC Glucose Random Glucose Lactic Acid Calcium Magnesium Total Bilirubin Direct Bilirubin AST ALT Alkaline Phosphatase Ammonia Total Creatine Kinase Troponin I High Sens B-Natriuretic Peptide Total Protein Albumin Urine Color YELLOW Urine Appearance CLEAR Urine pH 7.5 Ur Specific [place] 1.010 Urine Protein NEG Urine Glucose (UA) >=1000 H Urine Ketones NEG Urine Blood 1+ H Urine Nitrite NEG Ur Leukocyte Esterase NEG Urine RBC 1-4 Urine WBC 0 Ur Squamous Epith Cells NONE Urine Bacteria NONE Urine Opiates Screen Ur Barbiturates Screen Ur Phencyclidine Scrn Ur Amphetamines Screen U Benzodiazepines Scrn Urine Cocaine Screen U Marijuana (THC) Screen Ethyl Alcohol Coronavirus (PCR) NEGATIVE Influenza Type A (PCR) NEGATIVE Influenza Type B (PCR) NEGATIVE RSV RNA Qual (PCR) NEGATIVE 05/12/20 05/12/20 05/12/20 12:35 12:58 12:58 MCV 95.9 MCH 31.4 MCHC 32.8 RDW 12.3 Plt Count 200 MPV 9.8 Immature Gran % (Auto) 0.3 Neut % (Auto) 58.8 Lymph % (Auto) 32.5 [place] % (Auto) 7.1 Eos % (Auto) 1.0 Baso % (Auto) 0.3 Lymph # (Auto) 2.5 [place] # (Auto) 0.6 Eos # (Auto) 0.1 Baso # (Auto) 0.0 Abs Immat Gran (auto) 0.02 Absolute Neuts (auto) 4.6 Absolute Nucleated RBC 0.000 Nucleated RBC % (auto) 0.0 PT INR ABG pH ABG pCO2 ABG pO2 ABG HCO3 ABG O2 Saturation ABG Base Excess Oxygen Given Anion Gap 13 Estim Creat Clear Calc 77.4 Estimated GFR > 60 POC Glucose Random Glucose 207 H D Lactic Acid Calcium 8.8 Magnesium 2.1 Total Bilirubin 0.2 Direct Bilirubin < 0.2 AST 14 ALT 12 Alkaline Phosphatase 96 Ammonia Total Creatine Kinase Troponin I High Sens B-Natriuretic Peptide Total Protein 7.2 Albumin 4.1 Urine Color Urine Appearance Urine pH Ur Specific [place] Urine Protein Urine Glucose (UA) Urine Ketones Urine Blood Urine Nitrite Ur Leukocyte Esterase Urine RBC Urine WBC Ur Squamous Epith Cells Urine Bacteria Urine Opiates Screen POSITIVE H Ur Barbiturates Screen Not Detected Ur Phencyclidine Scrn Not Detected Ur Amphetamines Screen Not Detected U Benzodiazepines Scrn POSITIVE H Urine Cocaine Screen Not Detected U Marijuana (THC) Screen Not Detected Ethyl Alcohol Coronavirus (PCR) Influenza Type A (PCR) Influenza Type B (PCR) RSV RNA Qual (PCR) 05/12/20 05/12/20 05/12/20 12:58 12:58 13:56 MCV MCH MCHC RDW Plt Count MPV Immature Gran % (Auto) Neut % (Auto) Lymph % (Auto) [place] % (Auto) Eos % (Auto) Baso % (Auto) Lymph # (Auto) [place] # (Auto) Eos # (Auto) Baso # (Auto) Abs Immat Gran (auto) Absolute Neuts (auto) Absolute Nucleated RBC Nucleated RBC % (auto) PT INR ABG pH ABG pCO2 ABG pO2 ABG HCO3 ABG O2 Saturation ABG Base Excess Oxygen Given Anion Gap Estim Creat Clear Calc Estimated GFR POC Glucose Random Glucose Lactic Acid 1.3 Calcium Magnesium Total Bilirubin Direct Bilirubin AST ALT Alkaline Phosphatase Ammonia Total Creatine Kinase 122 Troponin I High Sens 3.9 B-Natriuretic Peptide 66 Total Protein Albumin Urine Color Urine Appearance Urine pH Ur Specific [place] Urine Protein Urine Glucose (UA) Urine Ketones Urine Blood Urine Nitrite Ur Leukocyte Esterase Urine RBC Urine WBC Ur Squamous Epith Cells Urine Bacteria Urine Opiates Screen Ur Barbiturates Screen Ur Phencyclidine Scrn Ur Amphetamines Screen U Benzodiazepines Scrn Urine Cocaine Screen U Marijuana (THC) Screen Ethyl Alcohol Coronavirus (PCR) Influenza Type A (PCR) Influenza Type B (PCR) RSV RNA Qual (PCR) 05/12/20 05/12/20 05/12/20 13:56 13:57 13:57 MCV MCH MCHC RDW Plt Count MPV Immature Gran % (Auto) Neut % (Auto) Lymph % (Auto) [place] % (Auto) Eos % (Auto) Baso % (Auto) Lymph # (Auto) [place] # (Auto) Eos # (Auto) Baso # (Auto) Abs Immat Gran (auto) Absolute Neuts (auto) Absolute Nucleated RBC Nucleated RBC % (auto) PT 11.0 INR 0.9 ABG pH ABG pCO2 ABG pO2 ABG HCO3 ABG O2 Saturation ABG Base Excess Oxygen Given Anion Gap Estim Creat Clear Calc Estimated GFR POC Glucose Random Glucose Lactic Acid Calcium Magnesium Total Bilirubin Direct Bilirubin AST ALT Alkaline Phosphatase Ammonia 50 Total Creatine Kinase Troponin I High Sens B-Natriuretic Peptide Total Protein Albumin Urine Color Urine Appearance Urine pH Ur Specific [place] Urine Protein Urine Glucose (UA) Urine Ketones Urine Blood Urine Nitrite Ur Leukocyte Esterase Urine RBC Urine WBC Ur Squamous Epith Cells Urine Bacteria Urine Opiates Screen Ur Barbiturates Screen Ur Phencyclidine Scrn Ur Amphetamines Screen U Benzodiazepines Scrn Urine Cocaine Screen U Marijuana (THC) Screen Ethyl Alcohol < 10 Coronavirus (PCR) Influenza Type A (PCR) Influenza Type B (PCR) RSV RNA Qual (PCR) 05/12/20 13:59 MCV MCH MCHC RDW Plt Count MPV Immature Gran % (Auto) Neut % (Auto) Lymph % (Auto) [place] % (Auto) Eos % (Auto) Baso % (Auto) Lymph # (Auto) [place] # (Auto) Eos # (Auto) Baso # (Auto) Abs Immat Gran (auto) Absolute Neuts (auto) Absolute Nucleated RBC Nucleated RBC % (auto) PT INR ABG pH ABG pCO2 ABG pO2 ABG HCO3 ABG O2 Saturation ABG Base Excess Oxygen Given Anion Gap Estim Creat Clear Calc Estimated GFR POC Glucose 128 H Random Glucose Lactic Acid Calcium Magnesium Total Bilirubin Direct Bilirubin AST ALT Alkaline Phosphatase Ammonia Total Creatine Kinase Troponin I High Sens B-Natriuretic Peptide Total Protein Albumin Urine Color Urine Appearance Urine pH Ur Specific [place] Urine Protein Urine Glucose (UA) Urine Ketones Urine Blood Urine Nitrite Ur Leukocyte Esterase Urine RBC Urine WBC Ur Squamous Epith Cells Urine Bacteria Urine Opiates Screen Ur Barbiturates Screen Ur Phencyclidine Scrn Ur Amphetamines Screen U Benzodiazepines Scrn Urine Cocaine Screen U Marijuana (THC) Screen Ethyl Alcohol Coronavirus (PCR) Influenza Type A (PCR) Influenza Type B (PCR) RSV RNA Qual (PCR) Imaging Radiologist's Impressions: Impressions Abdomen/Pelvis CT 05/12/20 09:10 IMPRESSION: 1. No acute findings are identified in the abdomen or pelvis. 2. Ill-defined areas of low densities in the liver, suboptimally visualized on noncontrast CT. These were present and better appreciated on the prior contrast enhanced CT of 12/02/2019. 3. There is stranding in the subcutaneous tissues of the right abdominal wall, which are present on the prior study, as well. 4. Patient is rotated to the right, somewhat limiting evaluation. No acute fracture is identified. Diffuse heterogeneity of the osseous structures, including areas of lucency within the bones. These appear unchanged as compared to previous. These are of uncertain etiology. Further evaluation with followup bone scan can be obtained as clinically warranted. Cervical Spine CT 05/12/20 09:11 IMPRESSION: 1. On the provided images, no acute fracture or subluxation is identified. Motion artifact is degrading images, with associated limitation in evaluation. Please clinically correlate. A repeat CT scan can be obtained for further evaluation as slightly warranted. 2. Moderate disc degeneration from C6-T1. Chest X-Ray 05/12/20 09:11 IMPRESSION: No evidence of acute pulmonary process. Prominence of the cardiac and mediastinal silhouette, probably related to the rotated positioning. Repeat radiographs as clinically warranted. Head CT 05/12/20 09:11 IMPRESSION: No acute intracranial abnormality. Elbow X-Ray 05/12/20 10:51 IMPRESSION: No fracture, dislocation, or elbow capsular effusion. Knee X-Ray 05/12/20 10:51 IMPRESSION: 1. No fracture or dislocation. 2. Tricompartment osteoarthritis. Probable trace effusion. Assessment and Plan (1) Opioid overdose: Status: Acute (2) Liver lesion: Status: Acute (3) IDDM (insulin dependent diabetes mellitus): Status: Acute (4) HTN (hypertension): Status: Acute (5) History of gastrostomy tube placement: Status: Acute (6) Gastroparesis: Status: Acute (7) Chronic pain syndrome: Status: Acute (8) CAD (coronary artery disease): Status: Acute (9) Toxic metabolic encephalopathy: Status: Acute (10) Fall: Status: Acute 60-year-old female presented with fall confusion lethargic patient was also hypotensive on arrival patient received Narcan with some improvement in mental status and hypotension improved, patient again became lethargic received another dose of Narcan and placed on Narcan drip, patient was evaluated by ICU given patient not hypoxic and mental status improving recommended admitted to telemetry Toxic metabolic encephalopathy secondary to drug overdose Patient on Dilaudid alprazolam at home Currently on Narcan drip Mental status improved Continue Narcan drip will titrate down as tolerated Monitor on telemetry Will monitor respiratory status Hold Dilaudid and alprazolam Diabetes mellitus Continue insulin Monitor blood glucose Hypertension Blood pressure was low on admission improved and currently in 160s Will restart home medications slowly Monitor blood pressure Chronic pain syndrome Hold Dilaudid given encephalopathy Will start Tylenol Status post fall Will get PT evaluation History of CAD Continue home medication DVT prophylaxis heparin subQ
--- NOTE | 2020-05-12 19:56 | PC.NURSE ---
spoke with Hospitalist. Narcan drip discontinued.
[2020-05-12] MEDS: Heparin Sodium,Porcine 5,000 UNIT/ML VIAL 5000 UNIT SUBCUT (21:17)
[2020-05-12] MEDS: ALPRAZolam 0.5 MG TABLET 1 MG PO (21:18)
[2020-05-12] MEDS: Topiramate 100 MG TABLET PO (21:18)
[2020-05-12] MEDS: traMADoL HCL 50 MG TABLET PO (21:18)
[2020-05-12] MEDS: 0.9 % Sodium Chloride Flush 3 ML SYRINGE IVFLUSH (23:36)
[2020-05-13] VITALS (8 sets, daily range): BP systolic 112–165; BP diastolic 59–77; PULSE 74–82; RESP 13–20; TEMP 36.1–36.8; O2SAT 93–98; BMI 31.7
[2020-05-13 05:43] LABS: MANUAL DIFF FLAG NO
[2020-05-13 05:45] LABS: Basophils Percent Auto 0.1 % (0-2); Eosinophils Percent Auto 0.3 % (0-4); Hematocrit 33.4 % (37-47); Hemoglobin 11.4 g/dl (12.0-16.0); Imm Gran Abs Auto 0.03 X10*3/uL (0.00-0.03); Imm Gran Pct Auto 0.3 % (0.0-0.4); Lymphocytes Absolute Auto 2.8 X10*3/uL (1.2-4.9); Lymphocytes Percent Auto 25.2 % (20-40); Mean Corpuscular HGB Conc 34.1 g/dl (31.0-35.0); Mean Corpuscular Hemoglobin 31.1 pg (27.0-33.0); Mean Corpuscular Volume 91.3 fL (80-98); Monocytes Absolute Auto 0.7 X10*3/uL (0.1-1.2); Monocytes Percent Auto 6.2 % (2-11); Neutrophils Absolute Auto 7.6 X10*3/uL (2.0-8.3); Neutrophils Percent Auto 67.9 % (45-73); Platelet Count 207 X10*3/uL (160-400); Red Blood Count 3.66 X10*6/uL (4.20-5.50); Red Cell Distribution Width 11.9 % (11.0-16.0); White Blood Count 11.2 X10*3/uL (4.8-10.8)
[2020-05-13 06:24] LABS: Anion Gap 14 (12-20); Blood Urea Nitrogen 15 mg/dL (9-16); Calcium 8.7 mg/dL (8.4-10.2); Carbon Dioxide 20 mmol/L (22-29); Chloride 110 mmol/L (96-108); Creatinine Clr Calc Pharmacy 83.6; Estimated Glomerular Filt Rate > 60; Glucose Random 264 mg/dL (60-115); Potassium 3.5 mmol/L (3.3-5.1); Sodium 140 mmol/L (135-145)
[2020-05-13] MEDS: Topiramate 100 MG TABLET PO ×2 (08:33→21:29)
[2020-05-13] MEDS: Aspirin Enteric Coated 81 MG TABLET.DR PO (08:33)
[2020-05-13] MEDS: Isosorbide Mononitrate 30 MG TAB.ER.24H PO (08:33)
[2020-05-13] MEDS: Omeprazole 20 MG CAPSULE.DR PO ×2 (08:33→17:52)
[2020-05-13] MEDS: ALPRAZolam 0.5 MG TABLET 1 MG PO ×3 (08:33→21:29)
[2020-05-13] MEDS: Heparin Sodium,Porcine 5,000 UNIT/ML VIAL 5000 UNIT SUBCUT ×2 (08:33→21:29)
[2020-05-13] MEDS: Atorvastatin Calcium 80 MG TABLET PO (08:33)
[2020-05-13] MEDS: polyethylene glycoL 3350 17 GM POWD.PACK PO (08:34)
[2020-05-13] MEDS: 0.9 % Sodium Chloride Flush 3 ML SYRINGE IVFLUSH ×3 (08:39→21:38)
[2020-05-13] MEDS: HYDROmorphone HCl 2 MG TABLET 1 MG PO (11:41)
--- NOTE | 2020-05-13 15:56 | HO.PM.IMPN ---
Subjective Subjective Date of Service: 05/13/20 Interval History: Patient seen and examined at bedside Patient is more awake and alert reporting back pain Constitutional Constitutional: Reports weakness Cardiovascular Cardiovascular: Denies leg edema and Denies dyspnea Respiratory Respiratory: Denies dyspnea Gastrointestinal Gastrointestinal: Denies vomiting Musculoskeletal Musculoskeletal: Reports no additional musculoskeletal complaints Neurologic Neurologic: Denies focal weakness and Reports weakness Psychiatric Psychiatric: Reports no additional psychiatric complaints Physical Exam Vital Signs: Vital Signs: Last Vital Signs Temp 98 F 05/13/20 14:19 Pulse 76 05/13/20 14:19 Resp 20 05/13/20 14:19 BP 144/59 H 05/13/20 14:19 Pulse Ox 96 05/13/20 14:19 Body Mass Index 31.7 Objective Data Current Medications Generic Name Dose Route Start Last Admin Trade Name Freq PRN Reason Stop Dose Admin Alprazolam 1 mg 05/12/20 21:00 05/13/20 14:26 Alprazolam 0.5 Mg Tablet PO 1 mg TID SANTI Administration Aspirin 81 mg 05/13/20 09:00 05/13/20 08:33 Aspirin Enteric Coated 81 Mg Tablet.Dr PO 81 mg DAILY SANTI Administration Atorvastatin Calcium 80 mg 05/13/20 09:00 05/13/20 08:33 Atorvastatin Calcium 80 Mg Tablet PO 80 mg DAILY SANTI Administration Bisacodyl 5 mg 05/12/20 19:12 Bisacodyl 5 Mg Tablet.Dr PO BID PRN Constipation Clonidine HCl 0.1 mg 05/12/20 20:23 Clonidine Hcl 0.1 Mg Tablet PO TID PRN withdrawal Protocol Heparin Sodium (Porcine) 5,000 unit 05/12/20 20:00 05/13/20 08:33 Heparin Sodium,Porcine 5,000 Unit/Ml Vial SUBCUT 5,000 unit Q12H SANTI Administration Hydromorphone HCl 2 mg 05/13/20 15:55 Hydromorphone Hcl 2 Mg Tablet PO Q6H PRN Pain, Moderate (Pain Scale 4-6 Hydroxyzine HCl 25 mg 05/12/20 20:23 Hydroxyzine Hcl 25 Mg Tablet PO Q8H PRN anxiety/restlessness Isosorbide Mononitrate 30 mg 05/13/20 09:00 05/13/20 08:33 Isosorbide Mononitrate 30 Mg Tab.Er.24h PO 30 mg DAILY SANTI Administration Protocol Lactulose 20 gm 05/12/20 19:11 Lactulose 20 Gm/30 Ml Solution PO TID PRN Constipation Omeprazole 20 mg 05/13/20 06:30 05/13/20 08:33 Omeprazole 20 Mg Capsule.Dr PO 20 mg BID@0630,4710 SANTI Administration Pharmacy Consult 1 each 05/12/20 10:51 Consult Rx Perform Med Rec MISCELLANE ONCE PRN Consult order Polyethylene Glycol 17 gm 05/13/20 09:00 05/13/20 08:34 Polyethylene Glycol 3350 17 Gm Powd.Pack PO 17 gm DAILY SANTI Administration Sodium Chloride 3 ml 05/13/20 00:00 05/13/20 08:39 0.9 % Sodium Chloride Flush 3 Ml Syringe IVFLUSH 3 ml QSHIFT SANTI Administration Topiramate 100 mg 05/12/20 21:00 05/13/20 08:33 Topiramate 100 Mg Tablet PO 100 mg BID SANTI Administration Labs CBC & Chem 7: 05/13/20 05:27 05/13/20 05:27 Microbiology Microbiology Results: Microbiology 05/12/20 12:58 Blood - Venous Blood Culture - Preliminary No growth after 24 hours. Assessment and Plan (1) Opioid overdose: Status: Acute (2) Liver lesion: Status: Acute (3) IDDM (insulin dependent diabetes mellitus): Status: Acute (4) HTN (hypertension): Status: Acute (5) History of gastrostomy tube placement: Status: Acute (6) Gastroparesis: Status: Acute (7) Chronic pain syndrome: Status: Acute (8) CAD (coronary artery disease): Status: Acute (9) Toxic metabolic encephalopathy: Status: Acute (10) Fall: Status: Acute Assessment and Plan: 60-year-old female presented with fall confusion lethargic patient was also hypotensive on arrival patient received Narcan with some improvement in mental status and hypotension improved, patient again became lethargic received another dose of Narcan and placed on Narcan drip, patient was evaluated by ICU given patient not hypoxic and mental status improving recommended admitted to telemetry Toxic metabolic encephalopathy secondary to drug overdose resolving Narcan drip was stopped yesterday Mental status improving much more awake and alert [facility] was consulted Diabetes mellitus Continue insulin Monitor blood glucose Hypertension Continue home medication Monitor blood pressure Chronic pain syndrome Will restart Dilaudid given complaining pain Status post fall PT evaluated recommended short-term rehab History of CAD Continue home medication DVT prophylaxis heparin subQ
--- NOTE | 2020-05-13 16:27 | MHC.CARE ---
1200 Team met with patient in room 260 to discuss the circumstances leading her overdose and subsequent hospitalization. Consistent with the earlier reports, she stated feeling dizzy and falling while in the bathroom, was able to crawl to the emergency call cord to get help. Patient denied any self-harming intention, said she takes her medication as prescribed and even has a journal to keep track. In exploring what might have been different this time if this is her usual medication routine patient noted that she had not eaten due to nausea and took the pills on an empty stomach. In addition speculated that she takes too many sedating medications at the same time, thinks maybe they should be spread out during the day differently. Patient has a good support system, her daughter is her PCP and take care of laundry, cooking, appointments, personal care; her son calls daily from [place]; she is friendly with neighbors and is happy in her apartment complex; mental health providers are through [facility]. Patient is not considered to be at risk for self-harm or suicide attempts at this time, has no history of such and is future oriented. Patient reported that in the past she had a visiting nurse for medication management, said that was helpful and is uncertain why it stopped, that is something to consider upon discharge, at least to review her system.
[2020-05-13] MEDS: HYDROmorphone HCl 2 MG TABLET PO ×2 (17:53→23:57)
[2020-05-13] MEDS: Insulin Lispro 100 UNIT/ML 3 ML VIAL SUBCUT (17:54)
[2020-05-13 18:00] LABS: Glucose, Whole Blood 286 mg/dL (60-115)
[2020-05-13 20:19] LABS: Glucose, Whole Blood 264 mg/dL (60-115)
[2020-05-14] VITALS (9 sets, daily range): BP systolic 119–149; BP diastolic 58–74; PULSE 71–93; RESP 18–20; TEMP 36.1–37; O2SAT 95–99
[2020-05-14] MEDS: ondansetron HCL 4 MG/2 ML VIAL IVPUSH (03:01)
[2020-05-14] MEDS: hydrOXYzine HCL 25 MG TABLET PO (03:01)
[2020-05-14] MEDS: Omeprazole 20 MG CAPSULE.DR PO ×2 (05:31→16:27)
[2020-05-14] MEDS: HYDROmorphone HCl 2 MG TABLET PO ×3 (05:41→17:47)
[2020-05-14 07:38] LABS: Glucose, Whole Blood 225 mg/dL (60-115)
[2020-05-14] MEDS: Insulin Lispro 100 UNIT/ML 3 ML VIAL SUBCUT ×4 (07:56→20:44)
[2020-05-14] MEDS: Lactulose 20 GM/30 ML SOLUTION PO (07:57)
[2020-05-14] MEDS: polyethylene glycoL 3350 17 GM POWD.PACK PO (07:57)
[2020-05-14] MEDS: Heparin Sodium,Porcine 5,000 UNIT/ML VIAL 5000 UNIT SUBCUT ×2 (07:57→20:44)
[2020-05-14] MEDS: Topiramate 100 MG TABLET PO ×2 (07:58→20:43)
[2020-05-14] MEDS: Isosorbide Mononitrate 30 MG TAB.ER.24H PO (07:58)
[2020-05-14] MEDS: ALPRAZolam 0.5 MG TABLET 1 MG PO ×3 (07:58→20:44)
[2020-05-14] MEDS: Atorvastatin Calcium 80 MG TABLET PO (07:58)
[2020-05-14] MEDS: Aspirin Enteric Coated 81 MG TABLET.DR PO (07:58)
[2020-05-14] MEDS: 0.9 % Sodium Chloride Flush 3 ML SYRINGE IVFLUSH ×2 (07:59→16:36)
--- NOTE | 2020-05-14 08:38 | MHC.CM.PN ---
CM gathered information from Patient, over the phone with the assist of a Granulator. Patient lives alone and has 8 hours/day of [facility] [employer] services/day(her Daughter is her HCP & [employer]ORE [employer])and [facility].The goal for dc is for Patient to return home with resumption of these services and CM has initiated and will follow for dc planning.Patient lives alone and uses a w/c to assist with mobility.
[2020-05-14 11:51] LABS: Glucose, Whole Blood 313 mg/dL (60-115)
[2020-05-14] MEDS: Losartan Potassium 50 MG TABLET 100 MG PO (11:52)
--- NOTE | 2020-05-14 14:50 | P.PNIM_ITS ---
Subjective Subjective Date of Service: 05/14/20 Interval History: Patient seen and examined at bedside Patient is more awake and alert today Patient was reporting hand swelling and pain since fall Patient was reporting back pain Constitutional Constitutional: Reports weakness Cardiovascular Cardiovascular: Denies leg edema and Denies dyspnea Respiratory Respiratory: Denies dyspnea Gastrointestinal Gastrointestinal: Denies vomiting Musculoskeletal Musculoskeletal: Reports no additional musculoskeletal complaints Neurologic Neurologic: Denies focal weakness and Reports weakness Psychiatric Psychiatric: Reports no additional psychiatric complaints Physical Exam Vital Signs: Vital Signs: Last Vital Signs Temp 97.9 F 05/14/20 12:00 Pulse 82 05/14/20 12:00 Resp 20 05/14/20 12:00 BP 148/70 H 05/14/20 12:00 Pulse Ox 96 05/14/20 12:00 Body Mass Index 31.7 Const: General: comfortable Resp: Effort & Inspection: normal respiratory effort Cardio: Jugular venous distension: no JVD GI: Inspection: Yes normal to inspection Neuro: Motor exam (neuro): 5/5 motor strength present throughout Objective Data Current Medications Generic Name Dose Route Start Last Admin Trade Name Freq PRN Reason Stop Dose Admin Alprazolam 1 mg 05/12/20 21:00 05/14/20 07:58 Alprazolam 0.5 Mg Tablet PO 1 mg TID SANTI Administration Amitriptyline HCl 50 mg 05/14/20 21:00 Amitriptyline Hcl 50 Mg Tablet PO BEDTIME SANTI Aspirin 81 mg 05/13/20 09:00 05/14/20 07:58 Aspirin Enteric Coated 81 Mg Tablet. PO 81 mg DAILY SANTI Administration Atorvastatin Calcium 80 mg 05/13/20 09:00 05/14/20 07:58 Atorvastatin Calcium 80 Mg Tablet PO 80 mg DAILY SANTI Administration Bisacodyl 5 mg 05/12/20 19:12 Bisacodyl 5 Mg Tablet. PO BID PRN Constipation Gabapentin 200 mg 05/14/20 15:00 Gabapentin 100 Mg Capsule PO TID SANTI Heparin Sodium (Porcine) 5,000 unit 05/12/20 20:00 05/14/20 07:57 Heparin Sodium,Porcine 5,000 Unit/Ml Vial SUBCUT 5,000 unit Q12H SANTI Administration Hydromorphone HCl 2 mg 05/13/20 15:55 05/14/20 11:52 Hydromorphone Hcl 2 Mg Tablet PO 2 mg Q6H PRN Administration Pain, Moderate (Pain Scale 4-6 Hydroxyzine HCl 25 mg 05/12/20 20:23 05/14/20 03:01 Hydroxyzine Hcl 25 Mg Tablet PO 25 mg Q8H PRN Administration anxiety/restlessness Insulin Human Lispro 0 unit 05/13/20 21:00 05/14/20 11:52 Insulin Lispro 100 Unit/Ml 3 Ml Vial SUBCUT 8 unit QIDACHS [facility] Administration Protocol Isosorbide Mononitrate 30 mg 05/13/20 09:00 05/14/20 07:58 Isosorbide Mononitrate 30 Mg Tab.Er.24h PO 30 mg DAILY [facility] Administration Protocol Lactulose 20 gm 05/12/20 19:11 05/14/20 07:57 Lactulose 20 Gm/30 Ml Solution PO 20 gm TID PRN Administration Constipation Losartan Potassium 100 mg 05/14/20 10:30 05/14/20 11:52 Losartan Potassium 50 Mg Tablet PO 100 mg DAILY [facility] Administration Protocol Metoprolol Succinate 100 mg 05/14/20 21:00 Metoprolol Succinate Er 100 Mg Tab.Er.24h PO BID [facility] Protocol Omeprazole 20 mg 05/13/20 06:30 05/14/20 05:31 Omeprazole 20 Mg Capsule.Dr PO 20 mg BID@1458,0880 [facility] Administration Ondansetron HCl 4 mg 05/14/20 00:56 05/14/20 03:01 Ondansetron Hcl 4 Mg/2 Ml Vial IVPUSH 4 mg Q8H PRN Administration Nausea and Vomiting Pharmacy Consult 1 each 05/12/20 10:51 Consult Rx Perform Med Rec MISCELLANE ONCE PRN Consult order Polyethylene Glycol 17 gm 05/13/20 09:00 05/14/20 07:57 Polyethylene Glycol 3350 17 Gm Powd.Pack PO 17 gm DAILY [facility] Administration Sodium Chloride 3 ml 05/13/20 00:00 05/14/20 07:59 0.9 % Sodium Chloride Flush 3 Ml Syringe IVFLUSH 3 ml QSHIFT [facility] Administration Topiramate 100 mg 05/12/20 21:00 05/14/20 07:58 Topiramate 100 Mg Tablet PO 100 mg BID SANTI Administration Labs CBC & Chem 7: 05/13/20 05:27 05/13/20 05:27 Microbiology Microbiology Results: Microbiology 05/12/20 13:56 Blood - Venous Blood Culture - Preliminary No growth after 24 hours. 05/12/20 12:58 Blood - Venous Blood Culture - Preliminary No growth after 24 hours. Assessment and Plan (1) Opioid overdose: Status: Acute (2) Liver lesion: Status: Acute (3) IDDM (insulin dependent diabetes mellitus): Status: Acute (4) HTN (hypertension): Status: Acute (5) History of gastrostomy tube placement: Status: Acute (6) Gastroparesis: Status: Acute (7) Chronic pain syndrome: Status: Acute (8) CAD (coronary artery disease): Status: Acute (9) Toxic metabolic encephalopathy: Status: Acute (10) Fall: Status: Acute Assessment and Plan: 60-year-old female presented with fall confusion lethargic patient was also hypotensive on arrival patient received Narcan with some improvement in mental s tatus and hypotension improved, patient again became lethargic received another dose of Narcan and placed on Narcan drip, patient was evaluated by ICU given patient not hypoxic and mental status improving recommended admitted to telemetry Toxic metabolic encephalopathy secondary to drug overdose and polypharmacy Received Narcan drip on day 1 Mental status improving much more awake and alert [facility] was consulted cleared by [facility] Dilaudid and gabapentin started at lower dose Left hand swelling status post fall X-ray hand shows carpal fracture Will get orthopedic consult Pain management Diabetes mellitus Continue insulin Monitor blood glucose Hypertension Continue home medication Monitor blood pressure Chronic pain syndrome Dilaudid started at lower dose Monitor mental status Restart gabapentin at lower dose Anxiety Continue home medication Status post fall PT evaluated recommended short-term rehab Patient currently refusing rehab History of CAD Continue home medication DVT prophylaxis heparin subQ
--- NOTE | 2020-05-14 15:46 | PM.EVENT ---
Event Note Date of Service: 05/14/20 Event Note: Patient was seen by orthopedics. This is a nonoperative fracture. The patient has been placed in a left volar removable Velcro splint. Instructed on how to perform ROM of fingers. Formal note to follow.
[2020-05-14] MEDS: Gabapentin 100 MG CAPSULE 200 MG PO ×2 (16:27→20:43)
[2020-05-14 16:34] LABS: Glucose, Whole Blood 261 mg/dL (60-115)
--- NOTE | 2020-05-14 17:48 | PM.CNOR ---
History of Present Illness HPI Consult date: 05/14/20 Consult reason: fracture Chief complaint: Drug overdose toxic metabolic encephalopathy Narrative: Patient presented to the ED on 05/12/20 after sustaining a mechanical fall. The patient states that she was trying to use the rest room and has difficulty ambulating due to a RT BKA, lost her balance, and fell on an outstretched hand. She has been having pain, swelling, and ecchymosis in the left hand ever since. An x-ray of the left hand was ordered today where the patient was found to have a fracture at the base of the second metacarpal and orthopedics was then consulted for further management. Review of Systems Review of Systems: Yes all other systems are reviewed and are negative COUNT INCLUDES THE [facility] Past Medical History Medical History (Updated 05/14/20 @ 18:25 by Deirdre Mcknight PA-C) Anxiety Below knee amputation CAD (coronary artery disease) Chronic pain syndrome Depression Gastroparesis History of gastrostomy tube placement HTN (hypertension) IDDM (insulin dependent diabetes mellitus) Liver lesion Myocardial infarction Wheelchair bound Surgical History Surgical History Hx of BKA Social History Social History (Updated 05/12/20 @ 20:39 by Erin Pereyra RN) Household Members: None Housing: Apartment Are you a primary child care nurse to a significant other at home: No Do you presently have visiting nurse or other home services: Yes (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 If so, by whom?: No Do you feel safe in your current relationship?: No Current Relationship Is there a partner from a previous relationship who is making you feel unsafe now?: No Are you made to feel afraid or neglected: No Spiritual Healthcare Practices: n/a Advance Directives: No Advance Directives Information Provided: No Advance Directives on File: No Do you have thoughts of harming others: None Do you have a plan to hurt others: No Plan Recently lost weight without trying: No service: No Current occupational status: disabled Meds Allergies Allergy/AdvReac Type Severity Reaction Status Date / Time Penicillins [PENICILLINS] Allergy Mild HIVES Verified 04/10/20 23:28 clarithromycin [From Biaxin] Allergy Unknown HIVES Verified 04/10/20 23:28 penicillin V Allergy Unknown rash, Verified 04/10/20 23:28 throat tight bioxin Allergy Unknown Unknown Uncoded 04/10/20 23:28 penicillin Allergy Unknown Unknown Uncoded 04/10/20 23:28 Active Medications: Current Medications Generic Name Dose Route Start Last Admin Trade Name Freq PRN Reason Stop Dose Admin Alprazolam 1 mg 05/12/20 21:00 05/14/20 16:27 Alprazolam 0.5 Mg Tablet PO 1 mg TID [facility] Administration Amitriptyline HCl 50 mg 05/14/20 21:00 Amitriptyline Hcl 50 Mg Tablet PO BEDTIME [facility] Aspirin 81 mg 05/13/20 09:00 05/14/20 07:58 Aspirin Enteric Coated 81 Mg Tablet. PO 81 mg DAILY SANTI Administration Atorvastatin Calcium 80 mg 05/13/20 09:00 05/14/20 07:58 Atorvastatin Calcium 80 Mg Tablet PO 80 mg DAILY [facility] Administration Bisacodyl 5 mg 05/12/20 19:12 Bisacodyl 5 Mg Tablet. PO BID PRN Constipation Gabapentin 200 mg 05/14/20 15:00 05/14/20 16:27 Gabapentin 100 Mg Capsule PO 200 mg TID [facility] Administration Heparin Sodium (Porcine) 5,000 unit 05/12/20 20:00 05/14/20 07:57 Heparin Sodium,Porcine 5,000 Unit/Ml Vial SUBCUT 5,000 unit Q12H SNATI Administration Hydromorphone HCl 2 mg 05/13/20 15:55 05/14/20 17:47 Hydromorphone Hcl 2 Mg Tablet PO 2 mg Q6H PRN Administration Pain, Moderate (Pain Scale 4-6 Hydroxyzine HCl 25 mg 05/12/20 20:23 05/14/20 03:01 Hydroxyzine Hcl 25 Mg Tablet PO 25 mg Q8H PRN Administration anxiety/restlessness Insulin Human Lispro 0 unit 05/13/20 21:00 05/14/20 16:38 Insulin Lispro 100 Unit/Ml 3 Ml Vial SUBCUT 6 unit QIDACHS SANTI Administration Protocol Isosorbide Mononitrate 30 mg 05/13/20 09:00 05/14/20 07:58 Isosorbide Mononitrate 30 Mg Tab.Er.24h PO 30 mg DAILY SANTI Administration Protocol Lactulose 20 gm 05/12/20 19:11 05/14/20 07:57 Lactulose 20 Gm/30 Ml Solution PO 20 gm TID PRN Administration Constipation Losartan Potassium 100 mg 05/14/20 10:30 05/14/20 11:52 Losartan Potassium 50 Mg Tablet PO 100 mg DAILY SANTI Administration Protocol Metoprolol Succinate 100 mg 05/14/20 21:00 Metoprolol Succinate Er 100 Mg Tab.Er.24h PO BID [facility] Protocol Omeprazole 20 mg 05/13/20 06:30 05/14/20 16:27 Omeprazole 20 Mg Capsule.Dr PO 20 mg BID@0630,1060 [facility] Administration Ondansetron HCl 4 mg 05/14/20 00:56 05/14/20 03:01 Ondansetron Hcl 4 Mg/2 Ml Vial IVPUSH 4 mg Q8H PRN Administration Nausea and Vomiting Pharmacy Consult 1 each 05/12/20 10:51 Consult Rx Perform Med Rec MISCELLANE ONCE PRN Consult order Polyethylene Glycol 17 gm 05/13/20 09:00 05/14/20 07:57 Polyethylene Glycol 3350 17 Gm Powd.Pack PO 17 gm DAILY SANTI Administration Sodium Chloride 3 ml 05/13/20 00:00 05/14/20 16:36 0.9 % Sodium Chloride Flush 3 Ml Syringe IVFLUSH 3 ml QSHIFT SANTI Administration Topiramate 100 mg 05/12/20 21:00 05/14/20 07:58 Topiramate 100 Mg Tablet PO 100 mg BID SANTI Administration Home Medications Medication Instructions Recorded Confirmed Last Taken Type alprazolam [Xanax] 1 mg PO TID 04/10/20 05/12/20 Unknown History [id number] 1 tab PO TID PRN 04/10/20 05/12/20 Unknown History [Fioricet] hydromorphone 4 mg PO 5XD 04/10/20 05/12/20 Unknown History promethazine 25 mg PO TID PRN 04/10/20 05/12/20 Unknown History amitriptyline 50 mg PO BEDTIME 05/12/20 05/12/20 Unknown History amlodipine 5 mg PO DAILY 05/12/20 05/12/20 Unknown History aspirin 81 mg PO DAILY 05/12/20 05/12/20 Unknown History atorvastatin 80 mg PO DAILY 05/12/20 05/12/20 Unknown History bisacodyl 5 mg PO BID PRN 05/12/20 05/12/20 Unknown History gabapentin 300 mg PO TID 05/12/20 05/12/20 Unknown History insulin regular hum U-500 conc 200 unit SUBCUT BEDTIME 05/12/20 05/12/20 Unknown History [Humulin R U-500 (Conc) Insulin] insulin regular hum U-500 conc 250 unit SUBCUT QAM 05/12/20 05/12/20 Unknown History [Humulin R U-500 (Conc) Insulin] isosorbide mononitrate 30 mg PO DAILY 05/12/20 05/12/20 Unknown History lactulose 20 g PO TID PRN 05/12/20 05/12/20 Unknown History losartan 100 mg PO DAILY 05/12/20 05/12/20 Unknown History metoclopramide HCl 10 mg PO Q6H PRN 05/12/20 05/12/20 Unknown History metoprolol succinate 100 mg PO BID 05/12/20 05/12/20 Unknown History niacin 1,000 mg PO BEDTIME 05/12/20 05/12/20 Unknown History omeprazole 20 mg PO BID 05/12/20 05/12/20 Unknown History polyethylene glycol 3350 [Miralax] 17 g PO DAILY 05/12/20 05/12/20 Unknown History topiramate 100 mg PO BID 05/12/20 05/12/20 Unknown History Physical Exam Vital Signs: Vital Signs: Last Vital Signs Temp 97.3 F 05/14/20 15:31 Pulse 93 05/14/20 15:31 Resp 18 05/14/20 15:31 BP 119/62 05/14/20 15:31 Pulse Ox 97 05/14/20 15:31 Body Mass Index 31.7 Const: General: cooperative and no acute distress Orientation/consciousness: patient oriented x3 Resp: Effort & Inspection: normal respiratory effort and able to speak in complete sentences Cardio: Peripheral pulses: Peripheral pulses 2+ throughout Skin: General skin exam: no rashes or lesions noted Neuro: General: patient oriented x3 Extrem: Other: Left hand has three minor superficial abrasions. Moderate eecchymosis and edema. No redness. She is tender to palpation over all metacarpals but enies tenderness at the wrist or digits. She is able to flex and extend all digits but is limited due to pain and edema. She is able to reach end ROM with passive ROM. Radial pulse intact. Capillary refill intact. Results Labs Result Diagrams: 05/13/20 05:27 05/13/20 05:27 Labs: Abnormal lab results 05/13/20 05/13/20 05/14/20 Range/Units 17:24 20:12 07:33 POC Glucose 286 H 264 H 225 H (60-115) mg/dL 05/14/20 05/14/20 Range/Units 11:46 16:27 POC Glucose 313 H 261 H (60-115) mg/dL H & H 05/12/20 05/13/20 Range/Units 12:58 05:27 Hgb 12.2 11.4 L (12.0-16.0) g/dl Hct 37.2 33.4 L (37-47) % Coagulation 05/12/20 Range/Units 13:57 INR 0.9 (0.9-1.1) All other labs normal. Assessment and Plan (1) Fracture of metacarpal base of left hand, closed: Status: Acute Ms. Mcqueen is a 60 yo right hand dominant female who sustained a mechanical fall on 05/12/20. She presented to the ED shortly after and was admitted to the hospital. She is currently being followed by medicine but has been stating that she is having ongoing left hand pain, swelling, and ecchymosis. An x-ray of the left hand was ordered today which demonstrates a non-displaced oblique fracture at the base of the second metacarpal. The x-rays were reviewed by myself as well as Dr. Fitzgerald. At this time the patient will be managed conservatively with a velcro wrist splint. I have educated her on digit AROM and PROM which she will do multiple times per day. She should elevate the extremity above heart level to help decrease some of the swelling. From an orthopedic standpoint there is no further treatment of the left hand needed at this time. Procedures Date of Service Date of Service: 05/14/20
[2020-05-14 20:16] LABS: Glucose, Whole Blood 276 mg/dL (60-115)
[2020-05-14] MEDS: Metoprolol Succinate ER 100 MG TAB.ER.24H PO (20:43)
[2020-05-14] MEDS: Amitriptyline HCl 50 MG TABLET PO (20:43)
[2020-05-15] VITALS (8 sets, daily range): BP systolic 97–131; BP diastolic 53–60; PULSE 72–78; RESP 18–20; TEMP 35.8–37; O2SAT 96–97
[2020-05-15] MEDS: HYDROmorphone HCl 2 MG TABLET PO ×3 (00:41→14:16)
[2020-05-15] MEDS: 0.9 % Sodium Chloride Flush 3 ML SYRINGE IVFLUSH ×2 (01:15→07:57)
[2020-05-15] MEDS: Omeprazole 20 MG CAPSULE.DR PO (05:20)
[2020-05-15 06:39] LABS: MANUAL DIFF FLAG NO
[2020-05-15 06:51] LABS: Basophils Percent Auto 0.3 % (0-2); Eosinophils Absolute Auto 0.1 X10*3/uL (0.0-0.4); Eosinophils Percent Auto 0.8 % (0-4); Hematocrit 34.7 % (37-47); Hemoglobin 11.9 g/dl (12.0-16.0); Imm Gran Abs Auto 0.03 X10*3/uL (0.00-0.03); Imm Gran Pct Auto 0.3 % (0.0-0.4); Lymphocytes Absolute Auto 3.7 X10*3/uL (1.2-4.9); Mean Corpuscular HGB Conc 34.3 g/dl (31.0-35.0); Mean Corpuscular Hemoglobin 31.4 pg (27.0-33.0); Mean Corpuscular Volume 91.6 fL (80-98); Mean Platelet Volume 10.5 fL (9.4-12.3); Monocytes Absolute Auto 0.7 X10*3/uL (0.1-1.2); Monocytes Percent Auto 6.9 % (2-11); Neutrophils Percent Auto 52.7 % (45-73); Platelet Count 205 X10*3/uL (160-400); Red Blood Count 3.79 X10*6/uL (4.20-5.50); Red Cell Distribution Width 12.4 % (11.0-16.0); White Blood Count 9.5 X10*3/uL (4.8-10.8)
[2020-05-15 07:18] LABS: Anion Gap 15 (12-20); Blood Urea Nitrogen 14 mg/dL (9-16); Calcium 8.6 mg/dL (8.4-10.2); Carbon Dioxide 18 mmol/L (22-29); Chloride 111 mmol/L (96-108); Creatinine Clr Calc Pharmacy 81.3; Estimated Glomerular Filt Rate > 60; Glucose Random 247 mg/dL (60-115); Potassium 3.9 mmol/L (3.3-5.1); Sodium 140 mmol/L (135-145)
[2020-05-15 07:41] LABS: Glucose, Whole Blood 243 mg/dL (60-115)
[2020-05-15] MEDS: Heparin Sodium,Porcine 5,000 UNIT/ML VIAL 5000 UNIT SUBCUT (07:56)
[2020-05-15] MEDS: Insulin Lispro 100 UNIT/ML 3 ML VIAL SUBCUT ×2 (07:57→11:57)
[2020-05-15] MEDS: polyethylene glycoL 3350 17 GM POWD.PACK PO (07:57)
[2020-05-15] MEDS: Losartan Potassium 50 MG TABLET 100 MG PO (07:58)
[2020-05-15] MEDS: ALPRAZolam 0.5 MG TABLET 1 MG PO ×2 (07:58→14:18)
[2020-05-15] MEDS: Metoprolol Succinate ER 100 MG TAB.ER.24H PO (07:58)
[2020-05-15] MEDS: Gabapentin 100 MG CAPSULE 200 MG PO ×2 (07:58→14:16)
[2020-05-15] MEDS: Aspirin Enteric Coated 81 MG TABLET.DR PO (07:58)
[2020-05-15] MEDS: Isosorbide Mononitrate 30 MG TAB.ER.24H PO (07:59)
[2020-05-15] MEDS: Atorvastatin Calcium 80 MG TABLET PO (07:59)
[2020-05-15] MEDS: Topiramate 100 MG TABLET PO (08:00)
--- NOTE | 2020-05-15 09:26 | MHC.CM.PN ---
Per MD, Patient may be ready for dc tomorrow. ADRIANNE has called [facility] @ [phone] and had to leave a message for Steffi Johnson, requesting a return call to determine if Patient is active now or has been with this agency in the past and to determine if they are able to provide a lock box for meds in the home.ADRIANNE awaits a return call from Steffi.
--- NOTE | 2020-05-15 09:35 | MHC.CM.PN ---
CM has left a message for Patient's Daughter/Codie @ [phone], requesting information regarding any previous [facility] involvement. CM awaits a return call.
[2020-05-15] MEDS: hydrOXYzine HCL 25 MG TABLET PO (12:03)
[2020-05-15 12:07] LABS: Glucose, Whole Blood 350 mg/dL (60-115)
--- NOTE | 2020-05-15 12:40 | P.DS_ITS ---
DS: Providers Provider Date of Service: 05/15/20 Date of admission: 05/12/20 17:43 Primary care physician: Unknown Physician Consults: 05/13/20 10:22 Consult to Crisis Stat Reason for consultation: drug overdose medically cleared 05/13/20 11:42 Consult to Care Team Routine Comment: Reason for consultation: drug overdose 05/14/20 12:59 Consult to Orthopedics Routine Consulting Provider: [facility] Reason for consultation: Oblique fracture base second metacarpal DS: Diagnosis Discharge Diagnosis (1) Fracture of metacarpal base of left hand, closed: Status: Acute DS: Medications Discharge Medications Home Medications: Home Medications Medication Instructions Recorded Confirmed alprazolam [Xanax] 1 mg PO TID 04/10/20 05/12/20 [id number]-[id number]-[id number] 1 tab PO TID PRN 04/10/20 05/12/20 promethazine 25 mg PO TID PRN 04/10/20 05/12/20 Humulin R U-500 (Conc) Insulin 200 unit SUBCUT BEDTIME 05/12/20 05/12/20 Humulin R U-500 (Conc) Insulin 250 unit SUBCUT QAM 05/12/20 05/12/20 amitriptyline 50 mg PO BEDTIME 05/12/20 05/12/20 aspirin 81 mg PO DAILY 05/12/20 05/12/20 atorvastatin 80 mg PO DAILY 05/12/20 05/12/20 bisacodyl 5 mg PO BID PRN 05/12/20 05/12/20 isosorbide mononitrate 30 mg PO DAILY 05/12/20 05/12/20 lactulose 20 g PO TID PRN 05/12/20 05/12/20 losartan 100 mg PO DAILY 05/12/20 05/12/20 metoclopramide HCl 10 mg PO Q6H PRN 05/12/20 05/12/20 metoprolol succinate 100 mg PO BID 05/12/20 05/12/20 niacin 1,000 mg PO BEDTIME 05/12/20 05/12/20 omeprazole 20 mg PO BID 05/12/20 05/12/20 polyethylene glycol 3350 [Miralax] 17 g PO DAILY 05/12/20 05/12/20 topiramate 100 mg PO BID 05/12/20 05/12/20 Previous Rx's Medication Instructions Recorded gabapentin 200 mg PO TID #0 cap 05/15/20 hydromorphone 2 mg PO 5XD #0 tab 05/15/20 DS: Summary Hospital Course Hospital Course: HPI 60-year-old female chronic back pain on Dilaudid presented with status post fall, per patient she woke up this morning she went to bathroom on her wheelchair, she was very sleepy , per patient she slipped in the bathroom because of her socks, patient pulled the cord in her apartment, EMS was called, patient was brought to ER, in the ER patient was found to be very sleepy and patient was hypotensive, patient was given Narcan with some improvement in blood pressure and became more awake, patient's blood pressure dropped again and became more lethargic received another dose of Narcan with improvement, patient was evaluated by intensive care patient was started on Narcan drip, since mental status improved, patient became more alert patient was not requiring oxygen, given improvement in the mental status and being not hypoxic ICU recommended admit the patient to telemetry, patient seen and examined at bedside, patient is more awake now reporting back pain Hospital course 60-year-old female admitted with toxic metabolic is encephalopathy secondary to likely drug overdose, patient was taking 4 mg of Dilaudid 5-6 times at home, patient was started on Narcan drip , patient's mental status improved, Hypotension was resolved, patient became more awake and alert, Narcan drip was stopped, patient herself denies any overdose ,patient denies any suicidal ideation or intent , patient was seen by care team care team recomended given no suicidal ideation or intent no need for inpatient pshych and recomended VNS., patient noticed to have left hand swelling status post fall, x-ray of the hand shows metacarpal fracture, patient was seen by orthopedic team provided with brace and recomended no surgical intervention , given patient fell at home patient was seen by Physical therapy recommended short-term rehab, patient refused short-term rehab, patient was medically stable, Dilaudid dose was reduced to 2 mg , patient's PCP office was contacted given concern for overdose and discussed with nurse at PCP office and nurse will convey to PCP, patient was stable discharged home with visiting nurse for physical therapy and medication management Time Spent with Patient Time attestation: Total time spent providing and/or coordinating discharge services: Discharge coordination time: Greater than 30 minutes Physical Exam Vital Signs: Vital Signs: Last Vital Signs Temp 96.4 F L 05/15/20 11:01 Pulse 74 05/15/20 11:01 Resp 18 05/15/20 11:01 BP 131/60 05/15/20 11:01 Pulse Ox 97 05/15/20 08:21 Body Mass Index 31.7 DS: Data Data Completed and Pending Labs on day of discharge: Laboratory Results - last 24 hr 05/14/20 05/14/20 05/15/20 16:27 20:12 05:52 WBC 9.5 RBC 3.79 L Hgb 11.9 L Hct 34.7 L MCV 91.6 MCH 31.4 MCHC 34.3 RDW 12.4 Plt Count 205 MPV 10.5 Immature Gran % (Auto) 0.3 Neut % (Auto) 52.7 Lymph % (Auto) 39.0 Schuyler % (Auto) 6.9 Eos % (Auto) 0.8 Baso % (Auto) 0.3 Lymph # (Auto) 3.7 Schuyler # (Auto) 0.7 Eos # (Auto) 0.1 Baso # (Auto) 0.0 Abs Immat Gran (auto) 0.03 Absolute Neuts (auto) 5.0 Absolute Nucleated RBC 0.000 Nucleated RBC % (auto) 0.0 Sodium Potassium Chloride Carbon Dioxide Anion Gap BUN Creatinine Estim Creat Clear Calc Estimated GFR POC Glucose 261 H 276 H Random Glucose Calcium 05/15/20 05/15/20 05/15/20 05:52 07:38 11:51 WBC RBC Hgb Hct MCV MCH MCHC RDW Plt Count MPV Immature Gran % (Auto) Neut % (Auto) Lymph % (Auto) Schuyler % (Auto) Eos % (Auto) Baso % (Auto) Lymph # (Auto) Schuyler # (Auto) Eos # (Auto) Baso # (Auto) Abs Immat Gran (auto) Absolute Neuts (auto) Absolute Nucleated RBC Nucleated RBC % (auto) Sodium 140 Potassium 3.9 Chloride 111 H Carbon Dioxide 18 L Anion Gap 15 BUN 14 Creatinine 0.77 Estim Creat Clear Calc 81.3 Estimated GFR > 60 POC Glucose 243 H 350 H* Random Glucose 247 H Calcium 8.6 Preliminary micro results at discharge 05/12/20 13:56 Blood Culture - Preliminary Blood - Venous No growth after 48 hours. 05/12/20 12:58 Blood Culture - Preliminary Blood - Venous No growth after 48 hours. Discharge Plan Discharge Anticipated Discharge Date/Time: 05/15/20 11:30 Patient Disposition: Home Health Service Referrals: Physician,Unknown [Primary Care Provider] - Discharge Medications: Continued alprazolam [Xanax] 1 mg Tablet 1 mg PO TID RF: 0 oirxfurkjh-oefpcpzvprsxt-xics 50-325-40 mg Tablet 1 tab PO TID PRN (Reason: Headache) RF: 0 promethazine 25 mg Tablet 25 mg PO TID PRN (Reason: Nausea And Vomiting) RF: 0 atorvastatin 80 mg Tablet 80 mg PO DAILY RF: 0 isosorbide mononitrate 30 mg Tablet Extended Release 24 Hr 30 mg PO DAILY RF: 0 metoprolol succinate 100 mg Tablet Extended Release 24 Hr 100 mg PO BID RF: 0 aspirin 81 mg Tablet,Delayed Release (Dr/Ec) 81 mg PO DAILY RF: 0 amitriptyline 50 mg Tablet 50 mg PO BEDTIME RF: 0 Humulin R U-500 (Conc) Insulin 500 unit/mL Solution 200 unit SUBCUT BEDTIME RF: 0 Humulin R U-500 (Conc) Insulin 500 unit/mL Solution 250 unit SUBCUT QAM RF: 0 omeprazole 20 mg Capsule,Delayed Release(Dr/Ec) 20 mg PO BID RF: 0 topiramate 100 mg Tablet 100 mg PO BID RF: 0 losartan 100 mg Tablet 100 mg PO DAILY RF: 0 bisacodyl 5 mg Tablet 5 mg PO BID PRN (Reason: Constipation) RF: 0 niacin 1,000 mg Tablet Extended Release 24 Hr 1,000 mg PO BEDTIME RF: 0 polyethylene glycol 3350 [Miralax] 17 gram/dose Powder 17 g PO DAILY RF: 0 metoclopramide HCl 10 mg Tablet 10 mg PO Q6H PRN (Reason: Nausea And Vomiting) RF: 0 lactulose 20 gram/30 mL Solution 20 g PO TID PRN (Reason: Constipation) RF: 0 Changed gabapentin 300 mg Capsule 200 mg PO TID Qty: 0 RF: 0 hydromorphone 4 mg Tablet 2 mg PO 5XD Qty: 0 RF: 0 Discontinued amlodipine 5 mg Tablet 5 mg PO DAILY RF: 0 Discharge Orders: Discharge Order (Routine); Ordered 05/15/20 Ordered By: Phillip Boss Diet: advance to usual diet Activity on Discharge: As tolerated Stand Alone Forms: Patient Portal Discharge page Care Plan Goals: precent hospitalization and overdose Health Concerns: overdose Plan of Treatment: VNS , medicine dose adjusted
--- NOTE | 2020-05-15 13:14 | MHC.CM.PN ---
Patient has been medically cleared for dc to home today with [facility]. With Patient's permission, CM did a broad search and [facility] are able to provide a Lock Box, RN & PT visits. CM left a message for Daughter/Codie @ [phone], informing her of the dc plan and Patient herself is aware of and in agreement with the dc plan,
--- NOTE | 2020-05-16 10:03 | MHC.CM.PN ---
Received voicemail on case management extension that [facility] is not able to provide service in [place]. [facility] also said they can accept. T/W is reaching out to them now. Continue to monitor for d/c needs.
== END 2020-05-15 17:10 | disposition home health service (06) | DRG 812 ==
LOC: HO.ED 16:12 → HO.ICU 18:11 → HO.IMC 05-13 11:43
PROVIDERS: Physician Assistant Medical; Admitting Provider Internal Medicine; Emergency Provider Emergency Medicine; PCP Internal Medicine; Visit Provider Internal Medicine
DX: T40.2X1A Poisoning by other opioids, accidental (unintentional), initial encounter (principal); G92 Toxic encephalopathy; I95.2 Hypotension due to drugs; Z93.1 Gastrostomy status; Z99.3 Dependence on wheelchair; K76.9 Liver disease, unspecified; G89.4 Chronic pain syndrome; Z89.512 Acquired absence of left leg below knee; F41.9 Anxiety disorder, unspecified; S62.341A Nondisplaced fracture of base of second metacarpal bone, left hand, initial encounter for closed fracture; I25.10 Atherosclerotic heart disease of native coronary artery without angina pectoris; W18.30XA Fall on same level, unspecified, initial encounter; Y93.9 Activity, unspecified; Y92.002 Bathroom of unspecified non-institutional (private) residence as the place of occurrence of the external cause; Y99.9 Unspecified external cause status; Y92.9 Unspecified place or not applicable; Z20.822 Contact with and (suspected) exposure to COVID-19; Z79.4 Long term (current) use of insulin; Z88.0 Allergy status to penicillin; Z79.82 Long term (current) use of aspirin; Z79.899 Other long term (current) drug therapy
CPT/HCPCS: 0241U; 36415; 70450; 71046; 72125; 73080; 73110; 73130; 73564; 74176; 80048; 80076; 80307; 80320; 81001; 82140; 82550; 82803; 82947; 83605; 83735; 83880; 84484; 85025; 85610; 87040; 93005; 96361; 96365; 96366; 96375; 96376; 97162; 99282; 99285; 99291; J2405

== ENCOUNTER 2020-05-25 04:10 | Emergency (ER) | payer MEDICAID, SELFPAY ==
--- NOTE | ~2020-05-25 | XR_ITS ---
EXAMINATION: XR KNEE, RIGHT CLINICAL INFORMATION: Fall, pain at the amputation site COMPARISON: 10/13/2019 TECHNIQUE: Three views of the right knee. FINDINGS: Osteopenia is noted. Status post amputation through the proximal tibia. No acute fracture identified. Redemonstrated deformity of the distal femur in keeping with healed old injury. There is tricompartmental joint space narrowing. No significant effusion is seen. Diffuse vascular calcification noted. XR/XR knee RT 3V IMPRESSION: No acute findings identified. Redemonstrated findings of below-knee amputation.
--- NOTE | 2020-05-25 04:14 | ED_ITS ---
HPI - Extremity Injury (Lower) General Chief Complaint: Fall Stated Complaint: RBKA PAIN S/P SLIP OUT CHAIR EARLIER Time Seen by Provider: 05/25/20 04:13 Source: patient and EMS Mode of arrival: EMS Limitations: no limitations History of Present Illness HPI Narrative: 60 yo female HTN, chronic pain, DM, GERD, HPL - last night slipped out of her wheelchair trying to go to the bathroom and struck her R BKA site on the ground EMS arrived for a lift and she declined transport, denies any other injuries, through the night reports pain has increased at R BKA and does not respond to her oral dilaudid. complaint: leg injury Onset (ago): day(s) (last night) Injury: Right: thigh and knee Type of Injury: blunt Place: home Severity: severe Relieving factors: nothing Exacerbating factors: nothing Context: fall (slipped out of her WC striking her R BKA site on ground ) Associated symptoms: swelling Other symptoms: none Related Data Home Medications Medication Instructions Recorded Confirmed alprazolam [Xanax] 1 mg PO TID 04/10/20 05/12/20 [id number]-ztjaztlgkogbk-cvxp 1 tab PO TID PRN 04/10/20 05/12/20 promethazine 25 mg PO TID PRN 04/10/20 05/12/20 Humulin R U-500 (Conc) Insulin 200 unit SUBCUT BEDTIME 05/12/20 05/12/20 Humulin R U-500 (Conc) Insulin 250 unit SUBCUT QAM 05/12/20 05/12/20 amitriptyline 50 mg PO BEDTIME 05/12/20 05/12/20 aspirin 81 mg PO DAILY 05/12/20 05/12/20 atorvastatin 80 mg PO DAILY 05/12/20 05/12/20 bisacodyl 5 mg PO BID PRN 05/12/20 05/12/20 isosorbide mononitrate 30 mg PO DAILY 05/12/20 05/12/20 lactulose 20 g PO TID PRN 05/12/20 05/12/20 losartan 100 mg PO DAILY 05/12/20 05/12/20 metoclopramide HCl 10 mg PO Q6H PRN 05/12/20 05/12/20 metoprolol succinate 100 mg PO BID 05/12/20 05/12/20 niacin 1,000 mg PO BEDTIME 05/12/20 05/12/20 omeprazole 20 mg PO BID 05/12/20 05/12/20 polyethylene glycol 3350 [Miralax] 17 g PO DAILY 05/12/20 05/12/20 topiramate 100 mg PO BID 05/12/20 05/12/20 Previous Rx's Medication Instructions Recorded cefuroxime axetil 250 mg PO BID #10 tab 05/15/20 gabapentin 200 mg PO TID #0 cap 05/15/20 hydromorphone 2 mg PO 5XD #0 tab 05/15/20 Allergies Allergy/AdvReac Type Severity Reaction Status Date / Time Penicillins [PENICILLINS] Allergy Mild HIVES Verified 05/25/20 04:33 clarithromycin [From Biaxin] Allergy Unknown HIVES Verified 05/25/20 04:33 penicillin V Allergy Unknown rash, Verified 05/25/20 04:33 throat tight bioxin Allergy Unknown Unknown Uncoded 05/25/20 04:33 penicillin Allergy Unknown Unknown Uncoded 05/25/20 04:33 Review of Systems Review of Systems: Constitutional : No Fever, No Chills ENT/Mouth : No Ear Pain, No Hoarseness, No sore throat Eyes: No Eye Pain, No Swelling, No Redness, No Foreign Body Cardiovascular : No Chest Pain, No SOB Respiratory : No Cough, No Dyspnea Gastrointestinal : No Nausea, No Vomiting, No Diarrhea, No abdominal Pain Genitourinary : No Dysuria, No Hematuria Musculoskeletal : positive joint pain, No Myalgias, No Joint Swelling Skin : No Skin lacerations, No rash Neuro : No Weakness, No Numbness, No Loss of Consciousness, No Dizziness, No Headache Psych : No Anxiety/Panic, No Depression All other systems reviewed and are negative FOR[facility], [facility] Past Medical History Medical History Anxiety Below knee amputation CAD (coronary artery disease) Chronic pain syndrome Depression Gastroparesis History of gastrostomy tube placement HTN (hypertension) IDDM (insulin dependent diabetes mellitus) Liver lesion Myocardial infarction Wheelchair bound Surgical History Hx of BKA Social History Social History Household Members: None Housing: Apartment Alcohol intake: never Smoking Status: Never smoker Advance Directives: No service: No Current occupational status: disabled Physical Exam Vital Signs: Vital Signs: Last Vital Signs Temp 99.4 F 05/25/20 04:21 Pulse 87 05/25/20 04:21 Resp 20 05/25/20 04:21 BP 167/78 H 05/25/20 04:21 Pulse Ox 99 05/25/20 04:21 Body Mass Index 37.2 Appearance: Alert. Oriented X3. No acute distress. Eyes: Pupils equal, round and reactive to light. ENT: Pharynx normal. Neck: Normal inspection. Neck supple. CVS: Normal heart rate and rhythm. Pulses normal. Respiratory: No respiratory distress. Breath sounds normal. Abdomen: Soft and nontender. Skin: Skin warm and dry. Normal skin color. Normal skin turgor. Extremities: R BKA no laceration, mild swelling and moderate pain at BKA site including her knee which has ttp and a mild effusion, LLE mild non pitting edema lower leg Neuro: Oriented X 3. No motor deficit. No sensory deficit. Course Course Course Narrative: xanax for anxiety, no sig trauma or fracture noted at this time other than some soft tissue swelling given pain medications, anxiety medications, no acute fracture found stable for DC MDM - Extremity Injury (Lower) MDM Narrative Medical decision making narrative: 60 yo female HTN, DM, OR, HPL, WC bound has R BKA - fell several hours ago after slipping in her chair then landing on her R BKA c/o pain not responding to her oral dilaudid, at this time no other injuries reported, will obtain xrays to r/o fracture, IM dilaudid for pain Discharge Plan Discharge Clinical Impression: Contusion Qualifiers: Encounter type: initial encounter Contusion area: knee Laterality: right Qualified Code(s): S80.01XA - Contusion of right knee, initial encounter Patient Disposition: Home, Self-Care Instructions: Contusion in Adults (ED) Additional Instructions: return to ED for any worsening symptoms or concerns xrays were negative for acute fracture Prescriptions: No Action alprazolam [Xanax] 1 mg Tablet 1 mg PO TID RF: 0 wviirfrzzx-uvjlsbpjagrqq-vkna 50-325-40 mg Tablet 1 tab PO TID PRN (Reason: Headache) RF: 0 promethazine 25 mg Tablet 25 mg PO TID PRN (Reason: Nausea And Vomiting) RF: 0 atorvastatin 80 mg Tablet 80 mg PO DAILY RF: 0 isosorbide mononitrate 30 mg Tablet Extended Release 24 Hr 30 mg PO DAILY RF: 0 metoprolol succinate 100 mg Tablet Extended Release 24 Hr 100 mg PO BID RF: 0 aspirin 81 mg Tablet,Delayed Release (Dr/Ec) 81 mg PO DAILY RF: 0 amitriptyline 50 mg Tablet 50 mg PO BEDTIME RF: 0 Humulin R U-500 (Conc) Insulin 500 unit/mL Solution 200 unit SUBCUT BEDTIME RF: 0 Humulin R U-500 (Conc) Insulin 500 unit/mL Solution 250 unit SUBCUT QAM RF: 0 omeprazole 20 mg Capsule,Delayed Release(Dr/Ec) 20 mg PO BID RF: 0 topiramate 100 mg Tablet 100 mg PO BID RF: 0 losartan 100 mg Tablet 100 mg PO DAILY RF: 0 bisacodyl 5 mg Tablet 5 mg PO BID PRN (Reason: Constipation) RF: 0 niacin 1,000 mg Tablet Extended Release 24 Hr 1,000 mg PO BEDTIME RF: 0 polyethylene glycol 3350 [Miralax] 17 gram/dose Powder 17 g PO DAILY RF: 0 metoclopramide HCl 10 mg Tablet 10 mg PO Q6H PRN (Reason: Nausea And Vomiting) RF: 0 lactulose 20 gram/30 mL Solution 20 g PO TID PRN (Reason: Constipation) RF: 0 gabapentin 300 mg Capsule 200 mg PO TID Qty: 0 RF: 0 hydromorphone 4 mg Tablet 2 mg PO 5XD Qty: 0 RF: 0 cefuroxime axetil 250 mg tablet 250 mg PO BID Qty: 10 RF: 0 Referrals: Rafiq Zhong MD [Primary Care Provider] - 1 day (if not better)
[2020-05-25 04:21] VITALS: BP 150/90; BP 167/78; PULSE 87; PULSE 88; RESP 20; TEMP 37.4; O2SAT 98; O2SAT 99; BMI 37.2
[2020-05-25] MEDS: HYDROmorphone HCl 2 MG/ML VIAL IM (04:25)
[2020-05-25] MEDS: ALPRAZolam 0.5 MG TABLET 1 MG PO (04:39)
--- NOTE | 2020-05-25 05:43 | PC.NURSE ---
When RN is not in patient's room, patient is calm. When patient enters the room, pt begins to moan/cry. Awaiting ambulance transport to be discharged home.
--- NOTE | 2020-05-25 06:04 | PC.NURSE ---
Per Maria (ED audio visual secretary), EMS to arrive around 7:30am today to transport patient home. Pt on commode at this time, 2 assist by Soy Johnson RN & Deysi Reina RN. Will continue to monitor.
--- NOTE | 2020-05-25 06:11 | PC.NURSE ---
Patient transferred back to bed from [facility] with 2 assists from Deysi Reina RN & Soy Johnson RN. Awaiting transportation via ambulance. Will continue to monitor.
== END 2020-05-25 08:03 | disposition home or self-care (01) ==
PROVIDERS: Emergency Provider Emergency Medicine; PCP Internal Medicine
DX: S80.01XA Contusion of right knee, initial encounter (principal); W05.0XXA Fall from non-moving wheelchair, initial encounter; I10 Essential (primary) hypertension; E11.9 Type 2 diabetes mellitus without complications; I25.2 Old myocardial infarction; Y93.89 Activity, other specified; Y92.031 Bathroom in apartment as the place of occurrence of the external cause; Y99.9 Unspecified external cause status; Z89.511 Acquired absence of right leg below knee; Z79.4 Long term (current) use of insulin; Z99.3 Dependence on wheelchair
CPT/HCPCS: 73562; 96372; 99283; 99284; J1170

== ENCOUNTER 2020-07-22 06:25 | Emergency (ER) | payer MEDICAID, SELFPAY ==
--- NOTE | ~2020-07-22 | XR_ITS ---
EXAMINATION: XR CHEST XR RIBS, RIGHT CLINICAL INFORMATION: Fall, trauma, pain right chest/ribs. COMPARISON: Chest radiographs 05/12/2020, 04/10/2020, 10/13/2019. TECHNIQUE: The chest is imaged in 2 frontal views and a lateral projection for a total of 3 views. The right ribs are imaged in 5 views. There are total of 8 views. FINDINGS: Patient is rotated on the frontal chest views. The lungs are clear. There is no airspace consolidation, pleural reaction, pneumothorax, or effusion. The cardiac and hilar and mediastinal contours are unremarkable. There is a right subclavian port again seen similar to prior exams There is no visible right rib fracture or rib destructive process. There are 2 wires overlying the left abdomen extending beyond field of view surgical clips seen left abdomen. XR/XR chest 2V IMPRESSION: 1. No visible right rib fracture or rib destructive process. 2. No acute intrathoracic disease.
--- NOTE | ~2020-07-22 | XR_ITS ---
EXAMINATION: XR CHEST XR RIBS, RIGHT CLINICAL INFORMATION: Fall, trauma, pain right chest/ribs. COMPARISON: Chest radiographs 05/12/2020, 04/10/2020, 10/13/2019. TECHNIQUE: The chest is imaged in 2 frontal views and a lateral projection for a total of 3 views. The right ribs are imaged in 5 views. There are total of 8 views. FINDINGS: Patient is rotated on the frontal chest views. The lungs are clear. There is no airspace consolidation, pleural reaction, pneumothorax, or effusion. The cardiac and hilar and mediastinal contours are unremarkable. There is a right subclavian port again seen similar to prior exams There is no visible right rib fracture or rib destructive process. There are 2 wires overlying the left abdomen extending beyond field of view surgical clips seen left abdomen. XR/XR ribs RT 2V IMPRESSION: 1. No visible right rib fracture or rib destructive process. 2. No acute intrathoracic disease.
[2020-07-22 06:29] VITALS: BP 164/64; PULSE 75; O2SAT 95
[2020-07-22 06:32] VITALS: BP 137/65; PULSE 73; RESP 18; TEMP 36.8; O2SAT 98; BMI 34.0
--- NOTE | 2020-07-22 06:32 | ED.UPPEXIN ---
HPI - Extremity Injury (Upper) General Chief Complaint: Wound/Laceration Stated Complaint: hip pain Time Seen by Provider: 07/22/20 06:31 Source: patient Mode of arrival: EMS Limitations: no limitations History of Present Illness HPI narrative: finger laceration 2 hours ago. Was cleaning knife and she cut her finger. In addition patient comes in because she injured her right ribs and has been feeling weak MD complaint: injury to: right and finger Onset (ago): hour(s) (2) Other injuries: none Handedness: right Place: home Severity: mild Related Data Home Medications Medication Instructions Recorded Confirmed alprazolam [Xanax] 1 mg PO TID 04/10/20 05/12/20 uyodlpiowa-suqrnqrkwqfjc-yigv 1 tab PO TID PRN 04/10/20 05/12/20 promethazine 25 mg PO TID PRN 04/10/20 05/12/20 Humulin R U-500 (Conc) Insulin 200 unit SUBCUT BEDTIME 05/12/20 05/12/20 Humulin R U-500 (Conc) Insulin 250 unit SUBCUT QAM 05/12/20 05/12/20 amitriptyline 50 mg PO BEDTIME 05/12/20 05/12/20 aspirin 81 mg PO DAILY 05/12/20 05/12/20 atorvastatin 80 mg PO DAILY 05/12/20 05/12/20 bisacodyl 5 mg PO BID PRN 05/12/20 05/12/20 isosorbide mononitrate 30 mg PO DAILY 05/12/20 05/12/20 lactulose 20 g PO TID PRN 05/12/20 05/12/20 losartan 100 mg PO DAILY 05/12/20 05/12/20 metoclopramide HCl 10 mg PO Q6H PRN 05/12/20 05/12/20 metoprolol succinate 100 mg PO BID 05/12/20 05/12/20 niacin 1,000 mg PO BEDTIME 05/12/20 05/12/20 omeprazole 20 mg PO BID 05/12/20 05/12/20 polyethylene glycol 3350 [Miralax] 17 g PO DAILY 05/12/20 05/12/20 topiramate 100 mg PO BID 05/12/20 05/12/20 Previous Rx's Medication Instructions Recorded cefuroxime axetil 250 mg PO BID #10 tab 05/15/20 gabapentin 200 mg PO TID #0 cap 05/15/20 hydromorphone 2 mg PO 5XD #0 tab 05/15/20 Allergies Allergy/AdvReac Type Severity Reaction Status Date / Time Penicillins [PENICILLINS] Allergy Mild HIVES Verified 05/25/20 04:33 clarithromycin [From Biaxin] Allergy Unknown HIVES Verified 05/25/20 04:33 penicillin V Allergy Unknown rash, Verified 05/25/20 04:33 throat tight bioxin Allergy Unknown Unknown Uncoded 05/25/20 04:33 penicillin Allergy Unknown Unknown Uncoded 05/25/20 04:33 Review of Systems Constitutional: Constitutional: Reports no additional constitutional complaints Eyes: Eyes: Reports no additional eye complaints ENT: Denies dizziness Cardiovascular: Cardiovascular: Reports no additional cardiovascular complaints Respiratory: Respiratory: Reports as per HPI Gastrointestinal: Gastrointestinal: Reports no additional gastrointestinal complaints Genitourinary: Genitourinary: Reports no additional female genitourinary complaints Musculoskeletal: Musculoskeletal: Reports no additional musculoskeletal complaints Integumentary/Breasts: Skin/Breast: Denies rash Neurologic: Reports system reviewed and no additional complaints, except as documented, Denies dizziness and Denies Sensory deficit (Neuro) Psychiatric: Psychiatric: Denies anxiety PMFSH Past Medical History Medical History Anxiety Below knee amputation CAD (coronary artery disease) Chronic pain syndrome Depression Gastroparesis History of gastrostomy tube placement HTN (hypertension) IDDM (insulin dependent diabetes mellitus) Liver lesion Myocardial infarction Wheelchair bound Surgical History Hx of BKA Social History Social History Household Members: None Housing: Apartment Alcohol intake: never Smoking Status: Never smoker Advance Directives: Yes Advance Directives on File: Yes Advance Directives Date on File: 05/12/20 service: No Current occupational status: disabled Physical Exam Vital Signs: Vital Signs: Last Vital Signs Temp 98.3 F 07/22/20 06:32 Pulse 64 07/22/20 10:26 Resp 16 07/22/20 10:26 BP 116/50 L 07/22/20 10:26 Pulse Ox 99 07/22/20 10:26 Body Mass Index 34.0 Const: Other: chronically ill Nutritional Appearance: obese Orientation/consciousness: oriented to person and patient oriented x3 Limitations: no limitations HENMT: Head: Yes normal to inspection Ears: external ears normal General nose exam: Normal external nose present Mouth: Normal oral and palatal mucosa present and oropharynx normal Throat: Yes posterior oropharynx normal Eyes: General: appearance normal, both eyes and all related structures Neck: Other: supple Neck: Yes normal visual inspection Chest: Other: right rib tenerness to palpation Resp: Auscultation: clear to auscultation bilaterally Cardio: Jugular venous distension: no JVD Rate: regular rate Rhythm: regular rhythm Heart sounds: S1 normal heart sound present and S2 normal heart sound present GI: Inspection: Yes normal to inspection Palpation (GI): Soft to palpation, nontender and No hepatosplenomegaly present Auscultation: normal bowel sounds : General: Yes no CVA tenderness Back/Spine/Pelvis: Back: no CVA tenderness Skin: Other: right finger with 2cm laceration to pad of finger Neuro: General: oriented to person and patient oriented x3 Cranial nerves: Yes CN's II-XII intact bilaterally Motor exam (neuro): 5/5 motor strength present throughout Sensory Exam: No Sensory deficit (Neuro) Extrem: General: Yes normal to inspection Psych: Appearance: grossly normal Course Course Course Narrative: waiting on UA Reevaluation(s) Reevaluation #1: no evidence of broke ribs or infection. Labs and UA normal will dc home Time: 11:30 Procedures Procedure Narrative Procedure Narrative: finger dermabonded with good result MDM - Extremity Injury (Upper) MDM Narrative Medical decision making narrative: laceration repaired, rib contusion, global weakness Lab Data Result diagrams: 07/22/20 06:48 07/22/20 06:48 Labs: Lab Results 07/22/20 07/22/20 07/22/20 Range/Units 06:48 06:48 11:07 WBC 7.1 (4.8-10.8) X10*3/uL RBC 3.62 L (4.20-5.50) X10*6/uL Hgb 11.2 L (12.0-16.0) g/dl Hct 33.7 L (37-47) % MCV 93.1 (80-98) fL MCH 30.9 (27.0-33.0) pg MCHC 33.2 (31.0-35.0) g/dl RDW 12.8 (11.0-16.0) % Plt Count 181 (160-400) X10*3/uL MPV 10.3 (9.4-12.3) fL Immature Gran % (Auto) 0.4 (0.0-0.4) % Neut % (Auto) 52.1 (45-73) % Lymph % (Auto) 38.0 (20-40) % [place] % (Auto) 8.1 (2-11) % Eos % (Auto) 1.1 (0-4) % Baso % (Auto) 0.3 (0-2) % Lymph # (Auto) 2.7 (1.2-4.9) X10*3/uL [place] # (Auto) 0.6 (0.1-1.2) X10*3/uL Eos # (Auto) 0.1 (0.0-0.4) X10*3/uL Baso # (Auto) 0.0 (0.0-0.2) X10*3/uL Abs Immat Gran (auto) 0.03 (0.00-0.03) X10*3/uL Absolute Neuts (auto) 3.7 (2.0-8.3) X10*3/uL Absolute Nucleated RBC 0.000 (0.0-0.012) X10*3/uL Nucleated RBC % (auto) 0.0 (0.0-0.2) /100WBC Sodium 137 (135-145) mmol/L Potassium 4.2 (3.3-5.1) mmol/L Chloride 108 (96-108) mmol/L Carbon Dioxide 21 L (22-29) mmol/L Anion Gap 12 (12-20) BUN 19 H (9-16) mg/dL Creatinine 0.86 (0.5-1.4) mg/dL Estim Creat Clear Calc 75.5 Estimated GFR > 60 Random Glucose 257 H (60-115) mg/dL Calcium 8.7 (8.4-10.2) mg/dL Urine Color YELLOW Urine Appearance CLEAR Urine pH 7.0 (5.0-8.0) Ur Specific [place] 1.010 (1.005-1.025) Urine Protein NEG (NEG-TRACE) MG/DL Urine Glucose (UA) 250 H (NEG) MG/DL Urine Ketones NEG (NEG) MG/DL Urine Blood NEG (NEG) Urine Nitrite NEG (NEG) Ur Leukocyte Esterase TRACE H (NEG) Imaging Data Chest x-ray: Radiologist's impression: no pneumonia or rib fractures Discharge Plan Discharge Clinical Impression: Laceration Contusion of rib Qualifiers: Encounter type: initial encounter Laterality: right Qualified Code(s): S20.211A - Contusion of right front wall of thorax, initial encounter Patient Disposition: Home, Self-Care Instructions: Rib Contusion (ED) Prescriptions: No Action alprazolam [Xanax] 1 mg Tablet 1 mg PO TID RF: 0 budeoyqgcf-vudmruysyyxvb-rxxi 50-325-40 mg Tablet 1 tab PO TID PRN (Reason: Headache) RF: 0 promethazine 25 mg Tablet 25 mg PO TID PRN (Reason: Nausea And Vomiting) RF: 0 atorvastatin 80 mg Tablet 80 mg PO DAILY RF: 0 isosorbide mononitrate 30 mg Tablet Extended Release 24 Hr 30 mg PO DAILY RF: 0 metoprolol succinate 100 mg Tablet Extended Release 24 Hr 100 mg PO BID RF: 0 aspirin 81 mg Tablet,Delayed Release (Dr/Ec) 81 mg PO DAILY RF: 0 amitriptyline 50 mg Tablet 50 mg PO BEDTIME RF: 0 Humulin R U-500 (Conc) Insulin 500 unit/mL Solution 200 unit SUBCUT BEDTIME RF: 0 Humulin R U-500 (Conc) Insulin 500 unit/mL Solution 250 unit SUBCUT QAM RF: 0 omeprazole 20 mg Capsule,Delayed Release(Dr/Ec) 20 mg PO BID RF: 0 topiramate 100 mg Tablet 100 mg PO BID RF: 0 losartan 100 mg Tablet 100 mg PO DAILY RF: 0 bisacodyl 5 mg Tablet 5 mg PO BID PRN (Reason: Constipation) RF: 0 niacin 1,000 mg Tablet Extended Release 24 Hr 1,000 mg PO BEDTIME RF: 0 polyethylene glycol 3350 [Miralax] 17 gram/dose Powder 17 g PO DAILY RF: 0 metoclopramide HCl 10 mg Tablet 10 mg PO Q6H PRN (Reason: Nausea And Vomiting) RF: 0 lactulose 20 gram/30 mL Solution 20 g PO TID PRN (Reason: Constipation) RF: 0 gabapentin 300 mg Capsule 200 mg PO TID Qty: 0 RF: 0 hydromorphone 4 mg Tablet 2 mg PO 5XD Qty: 0 RF: 0 cefuroxime axetil 250 mg tablet 250 mg PO BID Qty: 10 RF: 0 Referrals: Physician,Unknown [Physician] - 2 days
[2020-07-22 06:53] LABS: MANUAL DIFF FLAG NO
[2020-07-22 07:04] LABS: Basophils Percent Auto 0.3 % (0-2); Eosinophils Absolute Auto 0.1 X10*3/uL (0.0-0.4); Eosinophils Percent Auto 1.1 % (0-4); Hematocrit 33.7 % (37-47); Hemoglobin 11.2 g/dl (12.0-16.0); Imm Gran Abs Auto 0.03 X10*3/uL (0.00-0.03); Imm Gran Pct Auto 0.4 % (0.0-0.4); Lymphocytes Absolute Auto 2.7 X10*3/uL (1.2-4.9); Mean Corpuscular HGB Conc 33.2 g/dl (31.0-35.0); Mean Corpuscular Hemoglobin 30.9 pg (27.0-33.0); Mean Corpuscular Volume 93.1 fL (80-98); Mean Platelet Volume 10.3 fL (9.4-12.3); Monocytes Absolute Auto 0.6 X10*3/uL (0.1-1.2); Monocytes Percent Auto 8.1 % (2-11); Neutrophils Absolute Auto 3.7 X10*3/uL (2.0-8.3); Neutrophils Percent Auto 52.1 % (45-73); Platelet Count 181 X10*3/uL (160-400); Red Blood Count 3.62 X10*6/uL (4.20-5.50); Red Cell Distribution Width 12.8 % (11.0-16.0); White Blood Count 7.1 X10*3/uL (4.8-10.8)
[2020-07-22 07:20] LABS: Anion Gap 12 (12-20); Blood Urea Nitrogen 19 mg/dL (9-16); Calcium 8.7 mg/dL (8.4-10.2); Carbon Dioxide 21 mmol/L (22-29); Chloride 108 mmol/L (96-108); Creatinine Clr Calc Pharmacy 75.5; Estimated Glomerular Filt Rate > 60; Glucose Random 257 mg/dL (60-115); Potassium 4.2 mmol/L (3.3-5.1); Sodium 137 mmol/L (135-145)
[2020-07-22 08:20] VITALS: BP 106/43; PULSE 65; RESP 16; O2SAT 99
[2020-07-22 10:26] VITALS: BP 116/50; PULSE 64; RESP 16; O2SAT 99
[2020-07-22 11:21] LABS: Glucose Urine UA 250 MG/DL (NEG); Leukocyte Esterase Urine TRACE (NEG); Nitrite Urine NEG (NEG); UACC Culture Trigger YES; Urine Blood NEG (NEG); Urine Ketones NEG (NEG); Urine Protein NEG (NEG-TRACE)
[2020-07-22 11:27] LABS: Appearance Urine CLEAR; Color Urine YELLOW
[2020-07-22 11:34] LABS: Mucus Urine TRACE /LPF; RBC Urine 0-2 /HPF (0); Renal Epithelial Cells Urine TRACE /LPF; Squamous Epithelial Cell Urine TRACE /LPF
--- NOTE | 2020-07-22 12:10 | MHC.CM.ED ---
Received telephone call from Steffi at [facility]. She is a [employer] REPAIRER that has been working with [facility]. T/W explained patient came in due to finger lac and rib pain and would be discharged home today. Steffi verbalized understanding. Continue to monitor for d/c needs.
== END 2020-07-22 13:41 | disposition home or self-care (01) ==
PROVIDERS: Emergency Provider Emergency Medicine; PCP Internal Medicine
DX: S61.219A Laceration without foreign body of unspecified finger without damage to nail, initial encounter (principal); S20.211A Contusion of right front wall of thorax, initial encounter; I10 Essential (primary) hypertension; I25.10 Atherosclerotic heart disease of native coronary artery without angina pectoris; R07.81 Pleurodynia; E11.9 Type 2 diabetes mellitus without complications; W26.0XXA Contact with knife, initial encounter; Y93.9 Activity, unspecified; Y92.9 Unspecified place or not applicable; Y99.9 Unspecified external cause status; Z79.899 Other long term (current) drug therapy; Z79.4 Long term (current) use of insulin
CPT/HCPCS: 36415; 71046; 71100; 80048; 81001; 81003; 85025; 87086; 87147; 99283

== ENCOUNTER 2020-10-01 12:56 | Outpatient (RCR) | payer MEDICAID, SELFPAY | END 2020-10-01 15:00 | disposition home or self-care (01) | LOC: HO.WCC 12:56 | PROVIDERS: Visit Provider Surgery | DX: Z09 Encounter for follow-up examination after completed treatment for conditions other than malignant neoplasm (principal); E11.40 Type 2 diabetes mellitus with diabetic neuropathy, unspecified; I25.10 Atherosclerotic heart disease of native coronary artery without angina pectoris; Z86.718 Personal history of other venous thrombosis and embolism; I10 Essential (primary) hypertension; I25.2 Old myocardial infarction; Z79.4 Long term (current) use of insulin; Z86.31 Personal history of diabetic foot ulcer | CPT/HCPCS: 99212 ==

== ENCOUNTER 2020-11-10 18:16 | Emergency (ER) | payer MEDICAID, SELFPAY ==
--- NOTE | ~2020-11-10 | CT_ITS ---
EXAMINATION: CT OF THE HEAD AND CERVICAL SPINE WITHOUT CONTRAST CLINICAL INFORMATION: Trauma COMPARISON: 05/12/2020 TECHNIQUE: Contiguous axial imaging was performed from the vertex to the thoracic inlet, through the head and cervical spine, without intravenous administration of contrast. Coronal and sagittal reformatted images through the cervical spine were obtained on the technologists workstation. Total exam dose-length product: 682+419 mGy-cm This CT examination was performed using dose optimization techniques as appropriate, variously including the following: *Automated exposure control *Adjustment of mA and/or kV according to patient size (this includes techniques or standardized protocols for targeted exams where dose is matched to indication/reason for exam; i.e. extremities or head) *Use of iterative reconstruction technique FINDINGS: Head: No acute intracranial hemorrhage. No extra-axial fluid collection. Sheets-white matter differentiation is preserved without evidence of acute large vessel territory ischemia. Symmetric, concordant ventricles and sulci; no hydrocephalus. No mass effect or midline shift. There is no abnormal attenuation within the brain parenchyma. Mild hyperostosis frontalis. No skull fracture. Right ethmoid sinus disease. No evidence of acute sinusitis. The globes and orbits are normal. Mastoid air cells are well-developed and clear. Cervical spine: Normal pre-vertebral soft tissues. No fracture seen. Normal alignment. Mild loss of disc height with anterior osteophytosis most notable at C6-7 and C7-T1. Normal prevertebral soft tissues. No fracture seen. Mild multilevel facet arthropathy, left greater than right. Thyroid homogeneous with no nodules seen. Lung apices are clear. No cervical lymphadenopathy, mass, or fluid collection. CT/CT cervical spine wo con IMPRESSION: No acute intracranial pathology. No acute osseous abnormality of the cervical spine.
[2020-11-10 18:24] VITALS: BP 127/76; BP 130/52; PULSE 76; PULSE 79; RESP 16; O2SAT 98; BMI 37.8
[2020-11-10 18:26] VITALS: TEMP 37
--- NOTE | 2020-11-10 18:49 | ECG_ITS ---
Test Reason : DIZZINESS Blood Pressure : / mmHG Vent. Rate : 073 BPM Atrial Rate : 073 BPM P-R Int : 154 ms QRS Dur : 106 ms QT Int : 398 ms P-R-T Axes : 042 042 -15 degrees QTc Int : 438 ms Normal sinus rhythm Inferior infarct (cited on or before 28-FEB-2019) Abnormal ECG When compared with ECG of 12-MAY-2020 09:57, No significant change was found Referred By: Manuelito Jennings Electronically Signed By:SHAHANA XIAO
[2020-11-10] MEDS: Acetaminophen 325 MG TABLET 650 MG PO (19:27)
--- NOTE | 2020-11-10 19:31 | ED_ITS ---
HPI - Fall General Chief Complaint: Dizziness Stated Complaint: DIZZY/ FELL OUT OF WHEELCHAIR Time Seen by Provider: 11/10/20 18:43 History of Present Illness HPI Narrative: 60 yo wheelchair bound presented by ambulance after fall from the wheelchair,she is c/o [place] ,she states that she hit the hed in the floor, no LOC. She lives alone ,she is not ambulatory ,she gets around with the shreya henriquez MD complaint: fall Onset (ago): hour(s) (1) Fall from: wheelchair Fall witnessed: no Place fall occurred: home Loss of consciousness: none Prolonged down time: no Symptoms prior to fall: none Context: tripped/slipped Severity: moderate Associated symptoms (after fall): headache Related Data Home Medications Medication Instructions Recorded Confirmed alprazolam 1 mg tablet (Xanax) 1 mg PO TID 04/10/20 05/12/20 prjufwiixt-wdyjiertdgxch-fvegwyay 1 tab PO TID PRN 04/10/20 05/12/20 50 mg-325 mg-40 mg tablet promethazine 25 mg tablet 25 mg PO TID PRN 04/10/20 05/12/20 amitriptyline 50 mg tablet 50 mg PO BEDTIME 05/12/20 05/12/20 aspirin 81 mg tablet,delayed 81 mg PO DAILY 05/12/20 05/12/20 release atorvastatin 80 mg tablet 80 mg PO DAILY 05/12/20 05/12/20 bisacodyl 5 mg tablet 5 mg PO BID PRN 05/12/20 05/12/20 insulin regular hum U-500 conc 500 200 unit SUBCUT BEDTIME 05/12/20 05/12/20 unit/mL subcutaneous soln (Humulin R U-500 (Concentrated) Insulin) insulin regular hum U-500 conc 500 250 unit SUBCUT QAM 05/12/20 05/12/20 unit/mL subcutaneous soln (Humulin R U-500 (Concentrated) Insulin) isosorbide mononitrate 30 mg 30 mg PO DAILY 05/12/20 05/12/20 tablet,extended release 24 hr lactulose 20 gram/30 mL oral 20 g PO TID PRN 05/12/20 05/12/20 solution losartan 100 mg tablet 100 mg PO DAILY 05/12/20 05/12/20 metoclopramide HCl 10 mg tablet 10 mg PO Q6H PRN 05/12/20 05/12/20 metoprolol succinate 100 mg 100 mg PO BID 05/12/20 05/12/20 tablet,extended release 24 hr niacin 1,000 mg tablet,extended 1,000 mg PO BEDTIME 05/12/20 05/12/20 release 24 hr omeprazole 20 mg capsule,delayed 20 mg PO BID 05/12/20 05/12/20 release polyethylene glycol 3350 17 17 g PO DAILY 05/12/20 05/12/20 gram/dose oral powder (Miralax) topiramate 100 mg tablet 100 mg PO BID 05/12/20 05/12/20 Previous Rx's Medication Instructions Recorded cefuroxime axetil 250 mg tablet 250 mg PO BID #10 tab 05/15/20 gabapentin 300 mg capsule 200 mg PO TID #0 cap 05/15/20 hydromorphone 4 mg tablet 2 mg PO 5XD #0 tab 05/15/20 Allergies Allergy/AdvReac Type Severity Reaction Status Date / Time Penicillins [PENICILLINS] Allergy Mild HIVES Verified 05/25/20 04:33 clarithromycin [From Biaxin] Allergy Unknown HIVES Verified 05/25/20 04:33 penicillin V Allergy Unknown rash, Verified 05/25/20 04:33 throat tight bioxin Allergy Unknown Unknown Uncoded 05/25/20 04:33 penicillin Allergy Unknown Unknown Uncoded 05/25/20 04:33 Review of Systems Review of Systems: Yes all other systems are reviewed and are negative Constitutional: Constitutional: Reports no additional constitutional complaints, Denies fever(s) and Reports frequent falls ENT: Reports dizziness Cardiovascular: Cardiovascular: Denies chest pain, Denies syncope and Denies rapid heart rate Respiratory: Respiratory: Reports no additional respiratory complaints Gastrointestinal: Gastrointestinal: Reports no additional gastrointestinal complaints Neurologic: Reports dizziness, Denies syncope and Reports frequent falls [facility] Past Medical History Attestation statement: The following information was validated with the patient. Medical History Anxiety Below knee amputation CAD (coronary artery disease) Chronic pain syndrome Depression Gastroparesis History of gastrostomy tube placement HTN (hypertension) IDDM (insulin dependent diabetes mellitus) Liver lesion Myocardial infarction Wheelchair bound Surgical History Hx of BKA Social History Social History Household Members: None Housing: Apartment Are you a primary manager medicare marketing to a significant other at home: No Do you presently have visiting nurse or other home services: Yes (vna and customer service consultant) Alcohol intake: never Advance Directives: Yes Advance Directives on File: Yes Advance Directives Date on File: 05/12/20 service: No Current occupational status: disabled Physical Exam Vital Signs: Vital Signs: Last Vital Signs Temp 98.6 F 11/10/20 18:26 Pulse 71 11/10/20 20:24 Resp 16 11/10/20 20:24 BP 129/68 11/10/20 20:24 Pulse Ox 98 11/10/20 20:24 Body Mass Index 37.8 Const: General: cooperative, comfortable and no acute distress Nutritional Appearance: obese HENMT: Head: Yes normal to inspection and Yes No palpable skull fracture present Mouth: Normal oral and palatal mucosa present Neck: Neck: Yes normal visual inspection, Yes full ROM and Yes no lymphadenopathy Chest: Chest palpation & inspection: normal inspection of the chest Resp: Effort & Inspection: normal respiratory effort Auscultation: clear to auscultation bilaterally, no crackles, no rales and no rhonchi Cardio: Jugular venous distension: no JVD Rate: regular rate Rhythm: regular rhythm GI: Inspection: Yes normal to inspection Palpation (GI): Soft to palpation, not firm, nontender, no guarding and not rigid Skin: General skin exam: no rashes or lesions noted, elasticity normal and turgor normal Lesions: no lesions Rashes: no rashes Trauma: no lacerations or abrasions Wounds: no wounds Extrem: Other: BKA right Course Reevaluation(s) Reevaluation #1: AT THIS TIME SHE IS FEELING BETTER,CT SCAN HEAD AND CSPINE NEGATIVE ,LABS OK ,WILL D/C HOME MDM - Fall Lab Data Result diagrams: 11/10/20 19:33 11/10/20 19:33 Labs: Lab Results 11/10/20 11/10/20 11/10/20 Range/Units 19:33 19:33 19:33 WBC 10.7 (4.8-10.8) X10*3/uL RBC 3.50 L (4.20-5.50) X10*6/uL Hgb 11.0 L (12.0-16.0) g/dl Hct 32.1 L (37-47) % MCV 91.7 (80-98) fL MCH 31.4 (27.0-33.0) pg MCHC 34.3 (31.0-35.0) g/dl RDW 12.5 (11.0-16.0) % Plt Count 180 (160-400) X10*3/uL MPV 10.5 (9.4-12.3) fL Immature Gran % (Auto) 0.3 (0.0-0.4) % Neut % (Auto) 55.2 (45-73) % Lymph % (Auto) 33.1 (20-40) % [place] % (Auto) 10.3 (2-11) % Eos % (Auto) 0.9 (0-4) % Baso % (Auto) 0.2 (0-2) % Lymph # (Auto) 3.6 (1.2-4.9) X10*3/uL [place] # (Auto) 1.1 (0.1-1.2) X10*3/uL Eos # (Auto) 0.1 (0.0-0.4) X10*3/uL Baso # (Auto) 0.0 (0.0-0.2) X10*3/uL Abs Immat Gran (auto) 0.03 (0.00-0.03) X10*3/uL Absolute Neuts (auto) 5.9 (2.0-8.3) X10*3/uL Absolute Nucleated RBC 0.000 (0.0-0.012) X10*3/uL Nucleated RBC % (auto) 0.0 (0.0-0.2) /100WBC Sodium 138 (135-145) mmol/L Potassium 3.7 (3.3-5.1) mmol/L Chloride 104 (96-108) mmol/L Carbon Dioxide 24 (22-29) mmol/L Anion Gap 14 (12-20) BUN 11 (9-16) mg/dL Creatinine 0.85 (0.5-1.4) mg/dL Estim Creat Clear Calc 80.8 Estimated GFR > 60 Random Glucose 260 H (60-115) mg/dL Calcium 8.9 (8.4-10.2) mg/dL Total Bilirubin 0.4 (0.0-1.0) mg/dL AST 12 (5-31) U/L ALT 14 (0-31) U/L Alkaline Phosphatase 104 (39-117) U/L Troponin I High Sens 4.1 (<3.5-17.0) ng/L Total Protein 6.7 (6.5-8.0) g/dL Albumin 3.9 (3.5-5.0) g/dL Imaging Data CT scan - head: Radiologist's impression: Head: No acute intracranial hemorrhage.? No extra-axial fluid collection. Sheets-white matter differentiation is preserved without evidence of acute large vessel territory ischemia. Symmetric, concordant ventricles and sulci; no hydrocephalus.? No mass effect or midline shift. There is no abnormal attenuation within the brain parenchyma. Mild hyperostosis frontalis. No skull fracture. Right ethmoid sinus disease. No evidence of acute sinusitis. The globes and orbits are normal. Mastoid air cells are well-developed and clear. ? Cervical spine: Normal pre-vertebral soft tissues. No fracture seen. Normal alignment. Mild loss of disc height with anterior osteophytosis most notable at C6-7 and C7-T1. Normal prevertebral soft tissues. No fracture seen. Mild multilevel facet arthropathy, left greater than right. Thyroid homogeneous with no nodules seen.? Lung apices are clear. No cervical lymphadenopathy, mass, or fluid collection. CT/CT head/brain wo con IMPRESSION: No acute intracranial pathology. ? No acute osseous abnormality of the cervical spine. ? ? ? ECG Data Attestation: I personally reviewed and interpreted this ECG as follows: Pacemaker model: NSR rate 73 IVCD Discharge Plan Discharge Clinical Impression: Fall, Head injury Patient Disposition: Home, Self-Care Instructions: Fall Prevention for Older Adults (ED), Head Injury (ED) Prescriptions: No Action alprazolam [Xanax] 1 mg Tablet 1 mg PO TID RF: 0 pawyzydxag-nimmalafredjj-amln 50-325-40 mg Tablet 1 tab PO TID PRN (Reason: Headache) RF: 0 promethazine 25 mg Tablet 25 mg PO TID PRN (Reason: Nausea And Vomiting) RF: 0 atorvastatin 80 mg Tablet 80 mg PO DAILY RF: 0 isosorbide mononitrate 30 mg Tablet Extended Release 24 Hr 30 mg PO DAILY RF: 0 metoprolol succinate 100 mg Tablet Extended Release 24 Hr 100 mg PO BID RF: 0 aspirin 81 mg Tablet,Delayed Release (Dr/Ec) 81 mg PO DAILY RF: 0 amitriptyline 50 mg Tablet 50 mg PO BEDTIME RF: 0 Humulin R U-500 (Conc) Insulin 500 unit/mL Solution 200 unit SUBCUT BEDTIME RF: 0 Humulin R U-500 (Conc) Insulin 500 unit/mL Solution 250 unit SUBCUT QAM RF: 0 omeprazole 20 mg Capsule,Delayed Release(Dr/Ec) 20 mg PO BID RF: 0 topiramate 100 mg Tablet 100 mg PO BID RF: 0 losartan 100 mg Tablet 100 mg PO DAILY RF: 0 bisacodyl 5 mg Tablet 5 mg PO BID PRN (Reason: Constipation) RF: 0 niacin 1,000 mg Tablet Extended Release 24 Hr 1,000 mg PO BEDTIME RF: 0 polyethylene glycol 3350 [Miralax] 17 gram/dose Powder 17 g PO DAILY RF: 0 metoclopramide HCl 10 mg Tablet 10 mg PO Q6H PRN (Reason: Nausea And Vomiting) RF: 0 lactulose 20 gram/30 mL Solution 20 g PO TID PRN (Reason: Constipation) RF: 0 gabapentin 300 mg Capsule 200 mg PO TID Qty: 0 RF: 0 hydromorphone 4 mg Tablet 2 mg PO 5XD Qty: 0 RF: 0 cefuroxime axetil 250 mg tablet 250 mg PO BID Qty: 10 RF: 0
[2020-11-10 19:39] LABS: MANUAL DIFF FLAG NO
[2020-11-10 19:41] LABS: Basophils Percent Auto 0.2 % (0-2); Eosinophils Absolute Auto 0.1 X10*3/uL (0.0-0.4); Eosinophils Percent Auto 0.9 % (0-4); Hematocrit 32.1 % (37-47); Imm Gran Abs Auto 0.03 X10*3/uL (0.00-0.03); Imm Gran Pct Auto 0.3 % (0.0-0.4); Lymphocytes Absolute Auto 3.6 X10*3/uL (1.2-4.9); Lymphocytes Percent Auto 33.1 % (20-40); Mean Corpuscular HGB Conc 34.3 g/dl (31.0-35.0); Mean Corpuscular Hemoglobin 31.4 pg (27.0-33.0); Mean Corpuscular Volume 91.7 fL (80-98); Mean Platelet Volume 10.5 fL (9.4-12.3); Monocytes Absolute Auto 1.1 X10*3/uL (0.1-1.2); Monocytes Percent Auto 10.3 % (2-11); Neutrophils Absolute Auto 5.9 X10*3/uL (2.0-8.3); Neutrophils Percent Auto 55.2 % (45-73); Platelet Count 180 X10*3/uL (160-400); Red Cell Distribution Width 12.5 % (11.0-16.0); White Blood Count 10.7 X10*3/uL (4.8-10.8)
[2020-11-10 20:05] LABS: Alanine Aminotransferase 14 U/L (0-31); Albumin Level 3.9 g/dL (3.5-5.0); Alkaline Phosphatase 104 U/L (39-117); Anion Gap 14 (12-20); Aspartate Amino Transferase 12 U/L (5-31); Bilirubin Total 0.4 mg/dL (0.0-1.0); Blood Urea Nitrogen 11 mg/dL (9-16); Calcium 8.9 mg/dL (8.4-10.2); Carbon Dioxide 24 mmol/L (22-29); Chloride 104 mmol/L (96-108); Creatinine Clr Calc Pharmacy 80.8; Estimated Glomerular Filt Rate > 60; Glucose Random 260 mg/dL (60-115); Potassium 3.7 mmol/L (3.3-5.1); Sodium 138 mmol/L (135-145); Total Protein 6.7 g/dL (6.5-8.0)
[2020-11-10 20:08] LABS: Troponin-I High Sensitivity 4.1 ng/L (<3.5-17.0)
[2020-11-10 20:24] VITALS: BP 129/68; PULSE 71; RESP 16; O2SAT 98
--- NOTE | 2020-11-10 20:33 | PC.NURSE ---
Pending ambulance discharge home.
== END 2020-11-10 21:01 | disposition home or self-care (01) ==
PROVIDERS: Emergency Provider Emergency Medicine; PCP Internal Medicine
DX: S09.90XA Unspecified injury of head, initial encounter (principal); W05.0XXA Fall from non-moving wheelchair, initial encounter; R51.9 Headache, unspecified; E11.9 Type 2 diabetes mellitus without complications; I10 Essential (primary) hypertension; Y93.9 Activity, unspecified; Y92.039 Unspecified place in apartment as the place of occurrence of the external cause; Y99.9 Unspecified external cause status; Z99.3 Dependence on wheelchair; Z79.4 Long term (current) use of insulin
CPT/HCPCS: 36415; 70450; 72125; 80053; 84484; 85025; 93005; 99284; 99285

== ENCOUNTER 2021-01-26 04:22 | Inpatient (IN) | payer MEDICAID, SELFPAY ==
[2021-01-26] VITALS (12 sets, daily range): BP systolic 125–197; BP diastolic 53–86; PULSE 82–94; RESP 12–22; TEMP 36.7–37.2; O2SAT 97–100; BMI 46.3
--- NOTE | ~2021-01-26 | NM_ITS ---
EXAMINATION: OK hepatobiliary wo pharm CLINICAL INFORMATION: Reason for Exam abnormal us of gb COMPARISON: Ultrasound and CT of the abdomen and pelvis done on 01/26/2021. TECHNIQUE: Scintillation camera images were obtained over the abdomen for an observation of 60 minutes following the intravenous administration of 5.0 millicuries technetium 99m Mebrofenin. The gallbladder was not visualized, additional 60 minute images were also obtained. Subsequently, the patient was brought back at 4 hours as well as 20 hours postinjection for delayed imaging. FINDINGS: There is good concentration of activity in the liver by 5 minutes post injection. Biliary activity is well visualized by 15 minutes, and there is good visualization of small bowel activity by 42 minutes. The gallbladder remains nonvisualized throughout the entire study including on the 4 hour and 20 hours postinjection delayed images. Nonvisualization may represent changes secondary to acute as well as chronic cholecystitis as well as physiologic changes secondary to contraction or overt distention. NM/OK hepatobiliary wo pharm IMPRESSION: 1. The liver function appears normal. 2. No scintigraphic evidence of biliary/CBD obstruction. 3. Nonvisualized gallbladder.
--- NOTE | ~2021-01-26 | US_ITS ---
EXAMINATION: US ABDOMEN LIMITED CLINICAL INFORMATION: Abdominal pain and vomiting.. COMPARISON: None TECHNIQUE: Real-time imaging of the right upper quadrant abdominal viscera. FINDINGS: PANCREAS: Visualized part of the body of the pancreas is unremarkable. LIVER: The liver is normal in size. The liver contour is normal. There is diffuse increased liver parenchymal echogenicity, consistent with hepatic steatosis or hepatocellular disease or combination thereof. No focal hepatic lesion. There is no intrahepatic biliary duct dilatation seen. GALLBLADDER: Normal. The gallbladder is physiologically distended without evidence of large and small calculi. No evidence of any wall thickening or pericholecystic fluid. Sonographic Rodríguez's sign was absent. COMMON BILE DUCT: Normal in caliber measuring 0.3 cm in diameter. No evidence of any choledocholithiasis. Earlier CT detected dilated proximal part of the common bile duct is not visualized in the current study. Given this discrepancy, follow-up MRCP may be considered if biliary obstruction is suspected and supported by lab findings. RIGHT KIDNEY: Vascular calcifications are noted. No hydronephrosis. No renal calculi or focal parenchymal lesions. The kidney measures 12.5 cm in maximum dimension. FREE FLUID: None. US/US abdomen limited IMPRESSION: 1. The liver shows diffuse heterogeneous abnormal increased echotexture consistent with hepatic steatosis or hepatocellular disease or combination thereof without any sonographic evidence of focal liver lesion. 2. No evidence of any intrahepatic biliary ductal dilatation. Previously documented dilated common bile duct is not reproduced in the current study. Visualized part of the proximal common bile duct measures 0.3 cm. Given this discrepancy, follow-up MRCP may be considered if biliary obstruction is clinically suspected and supported by lab findings. 3. Evidence of gallbladder sludge and small calculi without any sonographic features of acute cholecystitis. 4. The visualized part of the body of the pancreas is unremarkable.
--- NOTE | ~2021-01-26 | CT_ITS ---
EXAMINATION: CT ABDOMEN AND PELVIS WITH CONTRAST CLINICAL INFORMATION: Abdominal pain. Diarrhea. COMPARISON: 05/12/2020 TECHNIQUE: Multidetector volumetric images were obtained from the superior aspect of the liver through the pubic symphysis following administration 85 mL of Omnipaque 350 intravenous contrast. Sagittal and coronal reformatted images were obtained on the technologist's workstation. Oral contrast: No This CT examination was performed using dose optimization techniques as appropriate, variously including the following: *Automated exposure control *Adjustment of mA and/or kV according to patient size (this includes techniques or standardized protocols for targeted exams where dose is matched to indication/reason for exam; i.e. extremities or head) *Use of iterative reconstruction technique DLP: 948 mGy-cm FINDINGS: LUNG BASES: The visualized lung bases are unremarkable. LIVER, GALLBLADDER, AND BILIARY TREE: The liver is normal in size, shape, and attenuation. No focal hepatic lesion. The gallbladder is normally distended. Mild intrahepatic and extrahepatic biliary ductal dilatation is noted. No definite ductal filling defect. Stones are seen in the gallbladder neck. No significant gallbladder wall thickening noted. PANCREAS: Atrophic with no focal abnormality. SPLEEN: Unremarkable. ADRENAL GLANDS: Unremarkable. KIDNEYS AND URETERS: The kidneys are normal in size, shape, and attenuation. No hydronephrosis, hydroureter, or calculi seen. No perinephric stranding. BLADDER: Unremarkable. GASTROINTESTINAL TRACT: The stomach is unremarkable. Normal caliber small bowel. There is no obstruction. No colonic wall thickening or acute inflammation. Mild colonic stool burden. Normal appendix. No free air or free fluid. ABDOMINAL WALL: No significant hernia is appreciated. Generator in the left abdominal wall tissues with wiring extending along the gastric wall. LYMPH NODES: Normal. VASCULAR: Normal caliber aorta with mild atherosclerotic calcification. Retroaortic left renal vein. PELVIC VISCERA: The uterus and adnexa are unremarkable. OSSEOUS STRUCTURES: No acute or suspicious osseous abnormality. Degenerative changes throughout the spine. Ovoid lucent appearance in the L4 vertebral body is unchanged. CT/CT abdomen pelvis w con IMPRESSION: Cholelithiasis. Intrahepatic and extrahepatic biliary ductal dilatation. Consider further evaluation with ultrasound. Otherwise no acute abnormality of the abdomen or pelvis. Mild colonic stool burden.
--- NOTE | 2021-01-26 04:27 | ED.ABDPAIN ---
HPI - Abdominal Pain General Chief Complaint: Abdominal Pain Stated Complaint: ABD PAIN, N/V/D,SOB 100%RA, POC 339 Time Seen by Provider: 01/26/21 04:25 Source: patient, EMS and old records reviewed Mode of arrival: EMS Limitations: no limitations History of Present Illness MD elicited complaint: abdominal pain Pertinent past history: other (gastroparesis, chronic pain) Onset (ago): week(s) (3) Pain Consistency: constant Location: diffuse Severity: severe Quality: stabbing Radiation: none Migration to: no migration Exacerbating factors: eating Relieving factors: nothing Context: history of similar episodes Associated symptoms: nausea, vomiting, hematochezia (in december had 1 bout but it resolved) and other (states she felt chest discomfort central, weakness, dyspnea since yesterday) Treatments prior to arrival: other (states she cannot take any of her medications) Related Data Home Medications Medication Instructions Recorded Confirmed alprazolam 1 mg tablet (Xanax) 1 mg PO TID 04/10/20 05/12/20 [id number]-runyakabjaxau-[id number] 1 tab PO TID PRN 04/10/20 05/12/20 50 mg-325 mg-40 mg tablet promethazine 25 mg tablet 25 mg PO TID PRN 04/10/20 05/12/20 amitriptyline 50 mg tablet 50 mg PO BEDTIME 05/12/20 05/12/20 aspirin 81 mg tablet,delayed 81 mg PO DAILY 05/12/20 05/12/20 release atorvastatin 80 mg tablet 80 mg PO DAILY 05/12/20 05/12/20 bisacodyl 5 mg tablet 5 mg PO BID PRN 05/12/20 05/12/20 insulin regular hum U-500 conc 500 200 unit SUBCUT BEDTIME 05/12/20 05/12/20 unit/mL subcutaneous soln (Humulin R U-500 (Concentrated) Insulin) insulin regular hum U-500 conc 500 250 unit SUBCUT QAM 05/12/20 05/12/20 unit/mL subcutaneous soln (Humulin R U-500 (Concentrated) Insulin) isosorbide mononitrate 30 mg 30 mg PO DAILY 05/12/20 05/12/20 tablet,extended release 24 hr lactulose 20 gram/30 mL oral 20 g PO TID PRN 05/12/20 05/12/20 solution losartan 100 mg tablet 100 mg PO DAILY 05/12/20 05/12/20 metoclopramide HCl 10 mg tablet 10 mg PO Q6H PRN 05/12/20 05/12/20 metoprolol succinate 100 mg 100 mg PO BID 05/12/20 05/12/20 tablet,extended release 24 hr niacin 1,000 mg tablet,extended 1,000 mg PO BEDTIME 05/12/20 05/12/20 release 24 hr omeprazole 20 mg capsule,delayed 20 mg PO BID 05/12/20 05/12/20 release polyethylene glycol 3350 17 17 g PO DAILY 05/12/20 05/12/20 gram/dose oral powder (Miralax) topiramate 100 mg tablet 100 mg PO BID 05/12/20 05/12/20 Previous Rx's Medication Instructions Recorded cefuroxime axetil 250 mg tablet 250 mg PO BID #10 tab 05/15/20 gabapentin 300 mg capsule 200 mg PO TID #0 cap 05/15/20 hydromorphone 4 mg tablet 2 mg PO 5XD #0 tab 05/15/20 Allergies Allergy/AdvReac Type Severity Reaction Status Date / Time Penicillins [PENICILLINS] Allergy Mild HIVES Verified 05/25/20 04:33 clarithromycin [From Biaxin] Allergy Unknown HIVES Verified 05/25/20 04:33 penicillin V Allergy Unknown rash, Verified 05/25/20 04:33 throat tight bioxin Allergy Unknown Unknown Uncoded 05/25/20 04:33 penicillin Allergy Unknown Unknown Uncoded 05/25/20 04:33 Review of Systems Review of Systems Constitutional : No Weight loss, No Fever, No Chills ENT/Mouth : No sore throat, No Rhinorrhea Eyes: No Swelling, No Redness Cardiovascular : pos Chest Pain, pos SOB, NoEdema Respiratory : No Cough, No Sputum, No Wheezing Gastrointestinal : Positive Nausea, Positive Vomiting, no Diarrhea, positive abdominal Pain, No Hematochezia, No Melena Genitourinary : No Dysuria, No Urinary Frequency, No Hematuria, No Urgency Musculoskeletal : No joint pain, No Myalgias, No Joint Swelling Skin : No Skin Lesions, No rash Neuro : pos Weakness, No Numbness, No Dizziness, No Headache Psych : No Anxiety/Panic, No Depression Heme/Lymph: No Bruising, No Lymphadenopathy Endocrine : No Polyuria, No Polydipsia All other systems reviewed and are negative. Physical Exam Vital Signs: Vital Signs: Last Vital Signs Temp 98.9 F 01/26/21 04:29 Pulse 90 01/26/21 05:40 Resp 18 01/26/21 05:40 BP 125/53 L 01/26/21 05:40 Pulse Ox 97 01/26/21 05:40 Body Mass Index 46.3 Appearance: Alert. Oriented X3. No acute distress. Very anxious, fixated on pain medications Eyes: Pupils equal, round and reactive to light. ENT: Pharynx normal. Neck: Normal inspection. Neck supple. CVS: Normal heart rate and rhythm. Pulses normal. Respiratory: No respiratory distress. Breath sounds normal. Abdomen: Soft with mild distention - diffuse ttp no rebound Skin: Skin warm and dry. pale skin color. Normal skin turgor. Extremities: 1+ pitting L lower extremity edema. R BKA Neuro: Oriented X 3. No motor deficit. No sensory deficit. Course Course Course Narrative: CT scan recommends US to r/o GB pathology - US ordered signed out to Dr. Shultz pending US MDM - Abdominal Pain MDM Narrative Medical decision making narrative: 60 yo female with DM, gastroparesis chronic pain syndrome here with reportedly 3 weeks of abdominal pain n/v unable to take her medications comes in today because I can't take it anymore at this time labs, IVF, IV dilaudid for pain, CT scan for obstruction ordered. Dispo per results and findings. Lab Data Result diagrams: 01/26/21 05:10 01/26/21 05:10 Labs: Lab Results 01/26/21 01/26/21 01/26/21 Range/Units 04:33 05:10 05:10 WBC 9.8 (4.8-10.8) X10*3/uL RBC 4.18 L (4.20-5.50) X10*6/uL Hgb 13.2 (12.0-16.0) g/dl Hct 39.7 (37.0-47.0) % MCV 95.0 (80.0-98.0) fL MCH 31.6 (27.0-33.0) pg MCHC 33.2 (31.0-35.0) g/dl RDW 12.9 (11.0-16.0) % Plt Count 187 (160-400) X10*3/uL MPV 10.2 (9.4-12.3) fL Immature Gran % (Auto) 0.2 (0.0-0.4) % Neut % (Auto) 70.7 (45-73) % Lymph % (Auto) 21.9 (20-40) % Mcdonald % (Auto) 6.2 (2-11) % Eos % (Auto) 0.8 (0-4) % Baso % (Auto) 0.2 (0-2) % Lymph # (Auto) 2.1 (1.2-4.9) X10*3/uL Mcdonald # (Auto) 0.6 (0.1-1.2) X10*3/uL Eos # (Auto) 0.1 (0.0-0.4) X10*3/uL Baso # (Auto) 0.0 (0.0-0.2) X10*3/uL Abs Immat Gran (auto) 0.02 (0.00-0.03) X10*3/uL Absolute Neuts (auto) 6.9 (2.0-8.3) x10*3/uL Absolute Nucleated RBC 0.000 (0.0-0.012) X10*3/uL Nucleated RBC % (auto) 0.0 (0.0-0.2) /100WBC Sodium 138 (135-145) mmol/L Potassium 4.7 D (3.3-5.1) mmol/L Chloride 105 (96-108) mmol/L Carbon Dioxide 24 (22-29) mmol/L Anion Gap 14 (12-20) BUN 9 (9-16) mg/dL Creatinine 0.80 (0.5-1.4) mg/dL Estim Creat Clear Calc 96.6 Estimated GFR > 60 POC Glucose 363 H* (60-115) mg/dL Random Glucose 417 H* (60-115) mg/dL Lactic Acid (0.5-2.0) mmol/L Calcium 9.3 (8.4-10.2) mg/dL Magnesium 1.8 (1.6-2.6) mg/dL Total Bilirubin 0.3 (0.0-1.0) mg/dL Direct Bilirubin < 0.2 (0.0-0.5) mg/dL AST 16 (5-31) U/L ALT 16 (0-31) U/L Alkaline Phosphatase 119 H (39-117) U/L Troponin I High Sens (<3.5-17.0) ng/L Total Protein 7.1 (6.5-8.0) g/dL Albumin 4.2 (3.5-5.0) g/dL Lipase 17 (8-78) U/L COVID-19 (TA) (Negative) COVID-19 Clin Com 01/26/21 01/26/21 01/26/21 Range/Units 05:10 05:10 05:10 WBC (4.8-10.8) X10*3/uL RBC (4.20-5.50) X10*6/uL Hgb (12.0-16.0) g/dl Hct (37.0-47.0) % MCV (80.0-98.0) fL MCH (27.0-33.0) pg MCHC (31.0-35.0) g/dl RDW (11.0-16.0) % Plt Count (160-400) X10*3/uL MPV (9.4-12.3) fL Immature Gran % (Auto) (0.0-0.4) % Neut % (Auto) (45-73) % Lymph % (Auto) (20-40) % Mcdonald % (Auto) (2-11) % Eos % (Auto) (0-4) % Baso % (Auto) (0-2) % Lymph # (Auto) (1.2-4.9) X10*3/uL Mcdonald # (Auto) (0.1-1.2) X10*3/uL Eos # (Auto) (0.0-0.4) X10*3/uL Baso # (Auto) (0.0-0.2) X10*3/uL Abs Immat Gran (auto) (0.00-0.03) X10*3/uL Absolute Neuts (auto) (2.0-8.3) x10*3/uL Absolute Nucleated RBC (0.0-0.012) X10*3/uL Nucleated RBC % (auto) (0.0-0.2) /100WBC Sodium (135-145) mmol/L Potassium (3.3-5.1) mmol/L Chloride (96-108) mmol/L Carbon Dioxide (22-29) mmol/L Anion Gap (12-20) BUN (9-16) mg/dL Creatinine (0.5-1.4) mg/dL Estim Creat Clear Calc Estimated GFR POC Glucose (60-115) mg/dL Random Glucose (60-115) mg/dL Lactic Acid 1.4 (0.5-2.0) mmol/L Calcium (8.4-10.2) mg/dL Magnesium (1.6-2.6) mg/dL Total Bilirubin (0.0-1.0) mg/dL Direct Bilirubin (0.0-0.5) mg/dL AST (5-31) U/L ALT (0-31) U/L Alkaline Phosphatase (39-117) U/L Troponin I High Sens < 3.5 (<3.5-17.0) ng/L Total Protein (6.5-8.0) g/dL Albumin (3.5-5.0) g/dL Lipase (8-78) U/L COVID-19 (TA) Negative (Negative) COVID-19 Clin Com See Note ECG Data Attestation: I personally reviewed and interpreted this ECG as follows: ECG interpretation date: 01/26/21 ECG interpretation time: 04:47 Interpretation: Rate: 87 Rhythm: NSR Clawson: normal Normal P waves. Normal MARY. Normal QRS complex. ST T wave : no DAMARIS, inverted inf leads qTC: normal prior studies: no change from priors The study has been interpreted contemporaneously by me. . Discharge Plan Discharge Clinical Impression: Acute hyperglycemia Abdominal pain Qualifiers: Abdominal location: generalized Qualified Code(s): R10.84 - Generalized abdominal pain Prescriptions: No Action alprazolam [Xanax] 1 mg Tablet 1 mg PO TID RF: 0 [id number]-tnlydafvfikps-otms 50-325-40 mg Tablet 1 tab PO TID PRN (Reason: Headache) RF: 0 promethazine 25 mg Tablet 25 mg PO TID PRN (Reason: Nausea And Vomiting) RF: 0 atorvastatin 80 mg Tablet 80 mg PO DAILY RF: 0 isosorbide mononitrate 30 mg Tablet Extended Release 24 Hr 30 mg PO DAILY RF: 0 metoprolol succinate 100 mg Tablet Extended Release 24 Hr 100 mg PO BID RF: 0 aspirin 81 mg Tablet,Delayed Release (Dr/Ec) 81 mg PO DAILY RF: 0 amitriptyline 50 mg Tablet 50 mg PO BEDTIME RF: 0 Humulin R U-500 (Conc) Insulin 500 unit/mL Solution 200 unit SUBCUT BEDTIME RF: 0 Humulin R U-500 (Conc) Insulin 500 unit/mL Solution 250 unit SUBCUT QAM RF: 0 omeprazole 20 mg Capsule,Delayed Release(Dr/Ec) 20 mg PO BID RF: 0 topiramate 100 mg Tablet 100 mg PO BID RF: 0 losartan 100 mg Tablet 100 mg PO DAILY RF: 0 bisacodyl 5 mg Tablet 5 mg PO BID PRN (Reason: Constipation) RF: 0 niacin 1,000 mg Tablet Extended Release 24 Hr 1,000 mg PO BEDTIME RF: 0 polyethylene glycol 3350 [Miralax] 17 gram/dose Powder 17 g PO DAILY RF: 0 metoclopramide HCl 10 mg Tablet 10 mg PO Q6H PRN (Reason: Nausea And Vomiting) RF: 0 lactulose 20 gram/30 mL Solution 20 g PO TID PRN (Reason: Constipation) RF: 0 gabapentin 300 mg Capsule 200 mg PO TID Qty: 0 RF: 0 hydromorphone 4 mg Tablet 2 mg PO 5XD Qty: 0 RF: 0 cefuroxime axetil 250 mg tablet 250 mg PO BID Qty: 10 RF: 0 PMFSH Past Medical History Attestation statement: The following information was validated with the patient. Medical History Anxiety Below knee amputation CAD (coronary artery disease) Chronic pain syndrome Depression Gastroparesis History of gastrostomy tube placement HTN (hypertension) IDDM (insulin dependent diabetes mellitus) Liver lesion Myocardial infarction Wheelchair bound Surgical History Hx of [facility] Social History Social History (Updated 01/26/21 @ 04:27 by Batsheva Flood DO) Household Members: None Housing: Apartment Are you a primary animal care service worker to a significant other at home: No Do you presently have visiting nurse or other home services: Yes (vna and central office equipment installer) Alcohol intake: never Patient Tobacco Use Status: Never used Tobacco Use of substances other than those prescribed or required for medical reasons: No Advance Directives: Yes Advance Directives on File: Yes Advance Directives Date on File: 05/12/20 Patient : No service: No Current occupational status: disabled
--- NOTE | 2021-01-26 04:29 | ECG_ITS ---
Test Reason : ABD PAIN Blood Pressure : / mmHG Vent. Rate : 087 BPM Atrial Rate : 087 BPM P-R Int : 132 ms QRS Dur : 098 ms QT Int : 382 ms P-R-T Axes : 065 078 003 degrees QTc Int : 459 ms Normal sinus rhythm Intra-ventricular conduction delay Abnormal ECG When compared with ECG of 10-NOV-2020 19:20, No significant change was found Referred By: Batsheva Flood Electronically Signed By:DEAN ATKINS MD
[2021-01-26 04:58] LABS: Glucose, Whole Blood 363 mg/dL (60-115)
[2021-01-26] MEDS: HYDROmorphone HCl 1 MG/ML SYRINGE IVPUSH ×4 (05:12→23:42)
[2021-01-26] MEDS: Prochlorperazine Edisylate 10 MG/2 ML VIAL IVPUSH ×3 (05:13→14:37)
[2021-01-26] MEDS: diphenhydrAMINE HCL 50 MG/ML VIAL 25 MG IVPUSH (05:13)
[2021-01-26] MEDS: 0.9 % Sodium Chloride 500 ML IV (05:14)
[2021-01-26] MEDS: Famotidine/PF 20 MG/2 ML VIAL IVPUSH (05:14)
[2021-01-26 05:18] LABS: Basophils Percent Auto 0.2 % (0-2); Eosinophils Absolute Auto 0.1 X10*3/uL (0.0-0.4); Eosinophils Percent Auto 0.8 % (0-4); Hematocrit 39.7 % (37.0-47.0); Hemoglobin 13.2 g/dl (12.0-16.0); Imm Gran Abs Auto 0.02 X10*3/uL (0.00-0.03); Imm Gran Pct Auto 0.2 % (0.0-0.4); Lymphocytes Absolute Auto 2.1 X10*3/uL (1.2-4.9); Lymphocytes Percent Auto 21.9 % (20-40); MANUAL DIFF FLAG NO; Mean Corpuscular HGB Conc 33.2 g/dl (31.0-35.0); Mean Corpuscular Hemoglobin 31.6 pg (27.0-33.0); Mean Platelet Volume 10.2 fL (9.4-12.3); Monocytes Absolute Auto 0.6 X10*3/uL (0.1-1.2); Monocytes Percent Auto 6.2 % (2-11); Neutrophils Absolute Auto 6.9 x10*3/uL (2.0-8.3); Neutrophils Percent Auto 70.7 % (45-73); Platelet Count 187 X10*3/uL (160-400); Red Blood Count 4.18 X10*6/uL (4.20-5.50); Red Cell Distribution Width 12.9 % (11.0-16.0); White Blood Count 9.8 X10*3/uL (4.8-10.8)
[2021-01-26 05:28] LABS: Lactic Acid 1.4 mmol/L (0.5-2.0)
[2021-01-26 05:35] LABS: COVID-19 Test Negative (Negative); IDNOW Serial# 9DD0AD1C
[2021-01-26 05:38] LABS: Troponin-I High Sensitivity < 3.5 ng/L (<3.5-17.0)
[2021-01-26 06:03] LABS: Alanine Aminotransferase 16 U/L (0-31); Albumin Level 4.2 g/dL (3.5-5.0); Alkaline Phosphatase 119 U/L (39-117); Anion Gap 14 (12-20); Aspartate Amino Transferase 16 U/L (5-31); Bilirubin Direct < 0.2 mg/dL (0.0-0.5); Bilirubin Total 0.3 mg/dL (0.0-1.0); Blood Urea Nitrogen 9 mg/dL (9-16); Calcium 9.3 mg/dL (8.4-10.2); Carbon Dioxide 24 mmol/L (22-29); Chloride 105 mmol/L (96-108); Creatinine Clr Calc Pharmacy 96.6; Estimated Glomerular Filt Rate > 60; Glucose Random 417 mg/dL (60-115); Lipase 17 U/L (8-78); Magnesium 1.8 mg/dL (1.6-2.6); Potassium 4.7 mmol/L (3.3-5.1); Sodium 138 mmol/L (135-145); Total Protein 7.1 g/dL (6.5-8.0)
[2021-01-26] MEDS: iohexoL 350 MG/ML 100 ML INFUS..BTL 85 ML IV (06:33)
[2021-01-26] MEDS: LORazepam 2 MG/ML VIAL 1 MG IVPUSH (06:44)
[2021-01-26] MEDS: Insulin Regular, Human 100 UNIT/ML 3 ML VIAL IVPUSH ×2 (06:44→10:06)
--- NOTE | 2021-01-26 08:52 | PC.NURSE ---
ultrasound done at bedside.pt tolerated well
[2021-01-26] MEDS: 0.9 % Sodium Chloride 1,000 ML 999 ML IVCONT (10:03)
--- NOTE | 2021-01-26 10:08 | PC.NURSE ---
RN aware of POC 314
[2021-01-26 10:09] LABS: Glucose, Whole Blood 314 mg/dL (60-115)
--- NOTE | 2021-01-26 11:23 | PC.NURSE ---
dr. kinney at bedside pt aware of plan of care
--- NOTE | 2021-01-26 11:34 | PC.NURSE ---
pt asked this rn to call her daughter (deisy, ) and update her on her status.
--- NOTE | 2021-01-26 12:10 | P.CONGS_ITS ---
History of Present Illness Consult details Consult date: 01/26/21 Reason for consult: gallstones Narrative: This is a 60-year-old female with a complicated past medical history who presented to the emergency department during the night for evaluation of Nausea, vomiting and abdominal pain. Past history is significant for insulin- dependent diabetes mellitus, gastroparesis status post placement of gastric stimulator, chronic back pain, coronary artery disease and myocardial infarction x3. She describes a past history of gastroparesis with symptoms of abdominal pain, nausea and vomiting. She reports that these symptoms improved and seemed to resolve over the past couple of years. During the summer, she developed recurrent symptoms of abdominal pain, nausea and vomiting. The symptoms have worsened and over the past month or so have become fairly persistent and severe. She reports that she lost 35 lb but then gained back. She describes pain in the epigastrium and right upper quadrant. She may be relatively comfortable 1st thing in the morning, but she reports that frequently, after drinking water and waiting a short period of time, she develops recurrent symptoms of abdominal pain nausea and vomiting. She does not describe fever or chills. The emesis typically is brown in color. She has not noticed any blood in the emesis. She states that the pain is different from the pain she has experienced in the past associated with her gastroparesis. She describes it as constant and more severe than her prior episodes of pain. She does not report jaundice or dark urine. She uses hydromorphone chronically at home because of her back pain. She reports that the hydromorphone controls her back pain and provided some relief for her abdominal pain but not complete relief. Workup in the emergency department revealed an elevated blood sugar, initially 363, then 417 and 314. Liver function studies were normal except for a very mildly elevated alkaline phosphatase of 119 (top normal 117). White blood count was normal. CT scan of the abdomen pelvis was done and demonstrated: Cholelithiasis. Intrahepatic and extrahepatic biliary ductal dilatation. Consider further evaluation with ultrasound. ? Otherwise no acute abnormality of the abdomen or pelvis. Mild colonic stool burden.? Ultrasound was done: IMPRESSION: ? 1. The liver shows diffuse heterogeneous abnormal increased echotexture consistent with hepatic steatosis or hepatocellular disease or combination thereof without any sonographic evidence of focal liver lesion. 2. No evidence of any intrahepatic biliary ductal dilatation. Previously documented dilated common bile duct is not reproduced in the current study. Visualized part of the proximal common bile duct measures 0.3 cm. Given this discrepancy, follow-up MRCP may be considered if biliary obstruction is clinically suspected and supported by lab findings. 3. Evidence of gallbladder sludge and small calculi without any sonographic features of acute cholecystitis. 4. The visualized part of the body of the pancreas is unremarkable. Dictated By: LOKI REZA MD Signed By: <Electronically signed by LOKI REZA MD in [place] 01/26/21 0917 Review of Systems Constitutional: Constitutional: Denies chills and Denies fever(s) Eyes: Comments: Diminished vision secondary to cataract. Cataract surgery is pending. ENT: Reports dizziness and Denies hearing loss Cardiovascular: Cardiovascular: Denies chest pain, Reports Epigastric Pain and Denies dyspnea Respiratory: Respiratory: Denies cough, Denies dyspnea and Denies wheezing Gastrointestinal: Gastrointestinal: Reports as per HPI Genitourinary: Genitourinary: Denies dysuria Musculoskeletal: Musculoskeletal: Reports back pain and Reports numbness (Left foot and lower leg, right hand) Neurologic: Reports dizziness and Reports numbness (Left foot and lower leg, right hand) Psychiatric: Psychiatric: Reports depression Endocrine: Endocrine: Reports cold intolerance Hematologic/Lymphatic: Hematologic/Lymphatic: Reports no additional hematologic/lymphatic complaints Allergic/Immunologic: Allergic/Immunologic: Denies wheezing PMFSH Past Medical History Medical History Anxiety Below knee amputation CAD (coronary artery disease) Chronic pain syndrome Depression Gastroparesis History of gastrostomy tube placement History of peptic ulcer disease HTN (hypertension) IDDM (insulin dependent diabetes mellitus) Liver lesion Myocardial infarction Wheelchair bound Functional capacity: wheelchair bound Family History Family History Father Coronary arteriosclerosis Surgical History Surgical History History of back surgery Hx of BKA Social History Social History Household Members: None Housing: Apartment Are you a primary clinical care leader to a significant other at home: No Do you presently have visiting nurse or other home services: Yes (vna and developmental specialist) Alcohol intake: never Patient Tobacco Use Status: Never used Tobacco Use of substances other than those prescribed or required for medical reasons: No Advance Directives: Yes Advance Directives on File: Yes Advance Directives Date on File: 05/12/20 Patient : No service: No Current occupational status: disabled Meds Allergies Allergy/AdvReac Type Severity Reaction Status Date / Time Penicillins [PENICILLINS] Allergy Mild HIVES Verified 05/25/20 04:33 clarithromycin [From Biaxin] Allergy Unknown HIVES Verified 05/25/20 04:33 penicillin V Allergy Unknown rash, Verified 05/25/20 04:33 throat tight bioxin Allergy Unknown Unknown Uncoded 05/25/20 04:33 penicillin Allergy Unknown Unknown Uncoded 05/25/20 04:33 Home Medications Medication Instructions Recorded Confirmed Last Taken Type alprazolam 1 mg tablet (Xanax) 1 mg PO TID 04/10/20 05/12/20 Unknown History [id number]-troujiykigvbk-sqjallmq 1 tab PO TID PRN 04/10/20 05/12/20 Unknown History 50 mg-325 mg-40 mg tablet promethazine 25 mg tablet 25 mg PO TID PRN 04/10/20 05/12/20 Unknown History amitriptyline 50 mg tablet 50 mg PO BEDTIME 05/12/20 05/12/20 Unknown History aspirin 81 mg tablet,delayed 81 mg PO DAILY 05/12/20 05/12/20 Unknown History release atorvastatin 80 mg tablet 80 mg PO DAILY 05/12/20 05/12/20 Unknown History bisacodyl 5 mg tablet 5 mg PO BID PRN 05/12/20 05/12/20 Unknown History insulin regular hum U-500 conc 500 200 unit SUBCUT BEDTIME 05/12/20 05/12/20 Unknown History unit/mL subcutaneous soln (Humulin R U-500 (Concentrated) Insulin) insulin regular hum U-500 conc 500 250 unit SUBCUT QAM 05/12/20 05/12/20 Unknown History unit/mL subcutaneous soln (Humulin R U-500 (Concentrated) Insulin) isosorbide mononitrate 30 mg 30 mg PO DAILY 05/12/20 05/12/20 Unknown History tablet,extended release 24 hr lactulose 20 gram/30 mL oral 20 g PO TID PRN 05/12/20 05/12/20 Unknown History solution losartan 100 mg tablet 100 mg PO DAILY 05/12/20 05/12/20 Unknown History metoclopramide HCl 10 mg tablet 10 mg PO Q6H PRN 05/12/20 05/12/20 Unknown Histo ry metoprolol succinate 100 mg 100 mg PO BID 05/12/20 05/12/20 Unknown History tablet,extended release 24 hr niacin 1,000 mg tablet,extended 1,000 mg PO BEDTIME 05/12/20 05/12/20 Unknown History release 24 hr omeprazole 20 mg capsule,delayed 20 mg PO BID 05/12/20 05/12/20 Unknown History release polyethylene glycol 3350 17 17 g PO DAILY 05/12/20 05/12/20 Unknown History gram/dose oral powder (Miralax) topiramate 100 mg tablet 100 mg PO BID 05/12/20 05/12/20 Unknown History Physical Exam Vital Signs: Vital Signs: Last Vital Signs Temp 98.6 F 01/26/21 10:39 Pulse 84 01/26/21 10:39 Resp 15 01/26/21 10:39 BP 153/63 H 01/26/21 10:39 Pulse Ox 99 01/26/21 10:39 Body Mass Index 46.3 Const: General: no acute distress, alert and ill appearing HENMT: Head: Yes normocephalic and Yes atraumatic Ears: hearing grossly normal bilaterally Eyes: Sclerae: sclerae normal EOM: EOMs intact bilaterally Resp: Effort & Inspection: normal respiratory effort Auscultation: clear to auscultation bilaterally Cardio: Rate: regular rate Rhythm: regular rhythm GI: Other: Round, soft, more prominent on the right, subcutaneous hardware left upper quadrant consistent with gastric pacemaker, mildly to moderately tender epigastrium and medial right subcostal area, no palpable masses, no organomegaly Rectal Exam - Female: deferred Skin: Other: Warm General skin exam: no rashes or lesions noted Extrem: Other: Right below-knee amputation Results Labs Result diagrams: 01/26/21 05:10 01/26/21 05:10 Labs: Abnormal lab results 01/26/21 01/26/21 01/26/21 Range/Units 04:33 05:10 05:10 RBC 4.18 L (4.20-5.50) X10*6/uL POC Glucose 363 H* (60-115) mg/dL Random Glucose 417 H* (60-115) mg/dL Alkaline Phosphatase 119 H (39-117) U/L 01/26/21 Range/Units 10:05 RBC (4.20-5.50) X10*6/uL POC Glucose 314 H (60-115) mg/dL Random Glucose (60-115) mg/dL Alkaline Phosphatase (39-117) U/L Short CBC 01/26/21 Range/Units 05:10 WBC 9.8 (4.8-10.8) X10*3/uL Hgb 13.2 (12.0-16.0) g/dl Hct 39.7 (37.0-47.0) % Plt Count 187 (160-400) X10*3/uL BMP 01/26/21 05:10 Sodium 138 Potassium 4.7 D Chloride 105 Carbon Dioxide 24 BUN 9 Creatinine 0.80 Calcium 9.3 Liver Function 01/26/21 Range/Units 05:10 Total Bilirubin 0.3 (0.0-1.0) mg/dL Direct Bilirubin < 0.2 (0.0-0.5) mg/dL AST 16 (5-31) U/L ALT 16 (0-31) U/L Alkaline Phosphatase 119 H (39-117) U/L Albumin 4.2 (3.5-5.0) g/dL All other labs normal. Imaging Abdomen CT scan report/results: report reviewed and image reviewed CT scan - pelvis: report reviewed and image reviewed Abdominal ultrasound report/results: report reviewed and image reviewed Assessment and Plan (1) Abdominal pain: Qualifiers: Abdominal location: generalized Qualified Code(s): R10.84 - Generalized abdominal pain Status: Acute (2) Cholelithiasis: Status: Acute (3) Gastroparesis: Status: Acute (4) IDDM (insulin dependent diabetes mellitus): Status: Acute 60-year-old female with multiple medical problems including diabetic gastroparesis presenting with worsening upper abdominal pain nausea and vomiting as well as imaging findings of cholelithiasis without evidence of acute cholecystitis. Etiology of pain is unclear. She reports that the pain is different from pain she has had with the gastroparesis in the past though other than an increase in severity, she is not able to give a clear description of the difference. She does not give a typical history of biliary colic. Her her symptoms may be due, at least in part, to biliary disease, but may also be rela bari to gastroparesis. Ulcer disease may also be contributing though this would not typically cause nausea and vomiting. She has a history of diabetes mellitus and blood sugar currently is poorly con trolled. Recommend evaluation by hospitalist service and Gastroenterology. If no other etiology is identified, it would be reasonable to proceed with cholecystectomy. I have discussed this with her and have explained that it may not be possible to define the contribution of her biliary disease to her symptoms and that symptoms may be unrelieved or only partially relieved following surgery. We discussed the technique of surgery, laparoscopic cholecystectomy with potential need to convert to open and discussed risks of perioperative [place], infection, bleeding, retained stones, bile leak and bile duct injury. General surgery will follow along. Procedures Date of Service Date of Service: 01/26/21
--- NOTE | 2021-01-26 14:26 | P.HPHOSP_ITS ---
History of Present Illness Date of Service: 01/26/21 Chief Complaint: Abdominal pain 60 year female with complex medical issues, including anxieyt, HTN that is controlled, diabetes, diabetes gastroparesis with chronic abdominal pain and has an implatable neuro stimulator, she takes dialudid 2.5 mg 4 times a day, she presents with abdominal pain that is rather non-specicific severe, diffusely in the abdomen, 10/10, associated with nausea and vomitting and this has been on going for 3 days and seems to have intensifies today, she was supposed to go see her primary care doctor but pain was too much so she ended up here. Seen by Gen surgery, CT of abdomen show gallstone, no evidence of cholecystitis, no fever, WBC is normal . Review of Systems Review of Systems: Gen: no fever Resp: no sob, no cough CV: no chest, no MAS, no leg edema GI: +n/v, + abd pain Neuro: No confusion Yes all other systems are reviewed and are negative [facility] Medical History Anxiety Below knee amputation CAD (coronary artery disease) Chronic pain syndrome Depression Gastroparesis History of gastrostomy tube placement History of peptic ulcer disease HTN (hypertension) IDDM (insulin dependent diabetes mellitus) Liver lesion Myocardial infarction Wheelchair bound Functional capacity: wheelchair bound Family History Father Coronary arteriosclerosis Surgical History History of back surgery Hx of BKA Social History Household Members: Family Housing: House Are you a primary pharmacist critical care to a significant other at home: No Do you presently have visiting nurse or other home services: Yes Alcohol intake: never Patient Tobacco Use Status: Never used Tobacco Second Hand Smoke Exposure: No Advance Directives Date on File: 05/12/20 service: No Current occupational status: unemployed and disabled Meds Allergies Allergy/AdvReac Type Severity Reaction Status Date / Time Penicillins [PENICILLINS] Allergy Mild HIVES Verified 05/25/20 04:33 clarithromycin [From Biaxin] Allergy Unknown HIVES Verified 05/25/20 04:33 penicillin V Allergy Unknown rash, Verified 05/25/20 04:33 throat tight bioxin Allergy Unknown Unknown Uncoded 05/25/20 04:33 penicillin Allergy Unknown Unknown Uncoded 05/25/20 04:33 Home Medications Medication Instructions Recorded Confirmed Last Taken Type alprazolam 1 mg tablet (Xanax) 1 mg PO TID 04/10/20 01/26/21 01/25/21 History rjajtingsd-nyirdlewoqivk-kzpbzvsy 1 tab PO TID PRN 04/10/20 01/26/21 Unknown History 50 mg-325 mg-40 mg tablet promethazine 25 mg tablet 25 mg PO TID PRN 04/10/20 01/26/21 01/25/21 History amitriptyline 50 mg tablet 50 mg PO BEDTIME 05/12/20 01/26/21 01/25/21 History aspirin 81 mg tablet,delayed 81 mg PO DAILY 05/12/20 01/26/21 01/25/21 History release atorvastatin 80 mg tablet 80 mg PO BEDTIME 05/12/20 01/26/21 01/25/21 History insulin regular hum U-500 conc 500 200 unit SUBCUT BEDTIME 05/12/20 05/12/20 Unknown History unit/mL subcutaneous soln (Humulin R U-500 (Concentrated) Insulin) insulin regular hum U-500 conc 500 250 unit SUBCUT QAM 05/12/20 05/12/20 Unknown History unit/mL subcutaneous soln (Humulin R U-500 (Concentrated) Insulin) isosorbide mononitrate 30 mg 30 mg PO DAILY 05/12/20 01/26/21 01/25/21 History tablet,extended release 24 hr losartan 100 mg tablet 100 mg PO DAILY 05/12/20 01/26/21 01/25/21 History metoclopramide HCl 10 mg tablet 10 mg PO Q6H PRN 05/12/20 01/26/21 01/25/21 History metoprolol succinate 100 mg 100 mg PO BID 05/12/20 01/26/21 01/25/21 History tablet,extended release 24 hr niacin 1,000 mg tablet,extended 1,000 mg PO BEDTIME 05/12/20 01/26/21 01/25/21 History release 24 hr omeprazole 20 mg capsule,delayed 20 mg PO BID 05/12/20 01/26/2121 History release polyethylene glycol 3350 17 17 g PO DAILY PRN 05/12/20 01/26/21 01/25/21 History gram/dose oral powder (Miralax) topiramate 100 mg tablet 100 mg PO BID 05/12/20 01/26/21 01/25/21 History gabapentin 300 mg capsule 600 mg PO TID 01/26/21 01/26/21 01/25/21 History hydromorphone 4 mg tablet 2 mg PO QID 01/26/21 01/26/21 01/25/21 History Physical Exam Vital Signs and Narrative: Vital Signs: Last Vital Signs Temp 98.4 F 01/26/21 12:27 Pulse 85 01/26/21 12:27 Resp 12 01/26/21 12:27 BP 141/64 H 01/26/21 12:27 Pulse Ox 98 01/26/21 12:27 Body Mass Index 46.3 Const: Other: Constitutional: Alert, in no distress, overweight. Mental Status: Oriented to person, place and time. Eyes: Pupils are equal, round and reactive to light. Ear, Nose and Throat: Oropharynx clear, mucous membranes moist. Ears and nose without eformities. Respiratory: Clear to auscultation. No wheezing, rales or rhonchi. Cardiovascular: S1 S2 regular. No murmurs, rubs or gallops. Gastrointestinal: Abdomen soft, diffuse non-specific tenderness, no rebound, no guardin? Neurologic: Cranial nerves II-XII grossly intact. No focal neurological deficits. Moves all extremities spontaneously.? Skin: No rashes or lesions.? Musculoskeletal: No cyanosis or clubbing. right below knee amputation, stump clean Psychiatric: Normal mood and affect? Results Labs CBC and Chem 7: 01/26/21 05:10 01/26/21 05:10 Labs: Laboratory Results - last 24 hr 01/26/21 01/26/21 01/26/21 04:33 05:10 05:10 MCV 95.0 MCH 31.6 MCHC 33.2 RDW 12.9 Plt Count 187 MPV 10.2 Immature Gran % (Auto) 0.2 Neut % (Auto) 70.7 Lymph % (Auto) 21.9 Bleckley % (Auto) 6.2 Eos % (Auto) 0.8 Baso % (Auto) 0.2 Lymph # (Auto) 2.1 Bleckley # (Auto) 0.6 Eos # (Auto) 0.1 Baso # (Auto) 0.0 Abs Immat Gran (auto) 0.02 Absolute Neuts (auto) 6.9 Absolute Nucleated RBC 0.000 Nucleated RBC % (auto) 0.0 Anion Gap 14 Estim Creat Clear Calc 96.6 Estimated GFR > 60 POC Glucose 363 H* Random Glucose 417 H* Lactic Acid Calcium 9.3 Magnesium 1.8 Total Bilirubin 0.3 Direct Bilirubin < 0.2 AST 16 ALT 16 Alkaline Phosphatase 119 H Troponin I High Sens Total Protein 7.1 Albumin 4.2 Lipase 17 COVID-19 (TA) COVID-19 Clin Com 01/26/21 01/26/21 01/26/21 05:10 05:10 05:10 MCV MCH MCHC RDW Plt Count MPV Immature Gran % (Auto) Neut % (Auto) Lymph % (Auto) Bleckley % (Auto) Eos % (Auto) Baso % (Auto) Lymph # (Auto) Bleckley # (Auto) Eos # (Auto) Baso # (Auto) Abs Immat Gran (auto) Absolute Neuts (auto) Absolute Nucleated RBC Nucleated RBC % (auto) Anion Gap Estim Creat Clear Calc Estimated GFR POC Glucose Random Glucose Lactic Acid 1.4 Calcium Magnesium Total Bilirubin Direct Bilirubin AST ALT Alkaline Phosphatase Troponin I High Sens < 3.5 Total Protein Albumin Lipase COVID-19 (TA) Negative COVID-19 Clin Com See Note 01/26/21 10:05 MCV MCH MCHC RDW Plt Count MPV Immature Gran % (Auto) Neut % (Auto) Lymph % (Auto) Bleckley % (Auto) Eos % (Auto) Baso % (Auto) Lymph # (Auto) Bleckley # (Auto) Eos # (Auto) Baso # (Auto) Abs Immat Gran (auto) Absolute Neuts (auto) Absolute Nucleated RBC Nucleated RBC % (auto) Anion Gap Estim Creat Clear Calc Estimated GFR POC Glucose 314 H Random Glucose Lactic Acid Calcium Magnesium Total Bilirubin Direct Bilirubin AST ALT Alkaline Phosphatase Troponin I High Sens Total Protein Albumin Lipase COVID-19 (TA) COVID-19 Clin Com Imaging Radiologist's Impressions: Impressions Abdomen/Pelvis CT 01/26/21 04:28 IMPRESSION: Cholelithiasis. Intrahepatic and extrahepatic biliary ductal dilatation. Consider further evaluation with ultrasound. Otherwise no acute abnormality of the abdomen or pelvis. Mild colonic stool burden. Abdomen Ultrasound 01/26/21 06:45 IMPRESSION: 1. The liver shows diffuse heterogeneous abnormal increased echotexture consistent with hepatic steatosis or hepatocellular disease or combination thereof without any sonographic evidence of focal liver lesion. 2. No evidence of any intrahepatic biliary ductal dilatation. Previously documented dilated common bile duct is not reproduced in the current study. Visualized part of the proximal common bile duct measures 0.3 cm. Given this discrepancy, follow-up MRCP may be considered if biliary obstruction is clinically suspected and supported by lab findings. 3. Evidence of gallbladder sludge and small calculi without any sonographic features of acute cholecystitis. 4. The visualized part of the body of the pancreas is unremarkable. Assessment and Plan (1) Abdominal pain: Qualifiers: Abdominal location: generalized Qualified Code(s): R10.84 - Generalized abdominal pain Status: Acute (2) Cholelithiasis: Status: Acute 60/F with chronic abdominal pain, diabetes gastroparesis, here with some abdominal pain, edtiology not clear, there intra and extrahepatic biliary dilation, gallblader sludge on US, normal WBC, nomrmal LFTs, I think this diabetes gastroparesis manisfeting with underlying chronic pain. 1/Abd pain, gallstone, suspect less likely gallbladder process but will go ahead and get HIDA scan pain management with dilaudid, already seen by surgeon and no indication for procedure 2/Diabetes--SSI, resume home meds when med rec done 3/ HTN--continue Losartan, Imdur, Metoprolol 4/ HLD-- Quality Stroke Does the patient have a stroke diagnosis?: No VTE Prior VTE?: No VTE Risk Level:: Medical - moderate - high VTE Device Contraindication: Treatment Not Tolerated VTE Drug Contraindication: N/A - Med Ordered
[2021-01-26] MEDS: HYDROmorphone HCl 0.5 MG/0.5 ML SYRINGE IVPUSH (14:29)
[2021-01-26 14:39] LABS: Glucose, Whole Blood 232 mg/dL (60-115)
[2021-01-26] MEDS: ALPRAZolam 0.5 MG TABLET 1 MG PO (15:29)
--- NOTE | 2021-01-26 15:47 | PC.NURSE ---
assumed care of pt. pt given anxiety medicine as requested to go to scan. Pt now saying that she feels too sick to go back. made aware.
--- NOTE | 2021-01-26 20:11 | P.CNGI_ITS ---
History of Present Illness Data of Consult Service Date: 01/26/21 Requesting physician: Juan [facility] Primary Care Provider: Unknown Physician HPI Reason for consult: abdominal pain 60 year female with hx of gastroparesis s/p gastric pacemaker, HTN, DM, anxiety, right leg BKA-wheel chair bound who I am seeing for assessment of abdominal pain. PAtient is rather a vague historian She says she has had upper abdominal pains straddling the RUQ and epigastrium on and off since December but recently got worse last few days. She is unable to say what worsens or relieves thee pain, when asked specifically about food she can;t state if affects the pain. The pain makes her restless and gives her nausea with bilious emesis. Denies fever, but has been feeling chills and hot and cold. Denies constipation, diarrhea, rectal bleeding or melena. She says 2 yrs ago she had a similarpresentation and was told she needed her Gb removed but never followed thru. At baseline she has nausea from gastroparesis but says this is controlled by reglan. She is also on omerpazole at baseline. CT of abdomen show gallstone, no evidence of cholecystitis, no fever, WBC is normal .? Reviewing [facility] notes she has been seen in past by Dr Sinclair and Mirza and had many XR and CT scans done incl HIDA 2013 [facility] was neg. She also had liver bx with steatosis noted. Apparently she had many EGD done in past by Che in [facility]. Review of Systems Review of Systems: Gen: no fever Resp: no sob, no cough CV: no chest, no MAS, no leg edema GI: +n/v, + abd pain Neuro: No confusion Yes all other systems are reviewed and are negative Constitutional: Constitutional: Denies chills and Denies fever(s) ENT: Reports dizziness and Denies hearing loss Cardiovascular: Cardiovascular: Denies chest pain, Reports Epigastric Pain and Denies dyspnea Respiratory: Respiratory: Denies cough, Denies dyspnea and Denies wheezing Gastrointestinal: Gastrointestinal: Reports as per HPI Musculoskeletal: Musculoskeletal: Reports back pain and Reports numbness (Left foot and lower leg, right hand) Neurologic: Reports dizziness and Reports numbness (Left foot and lower leg, right hand) Psychiatric: Psychiatric: Reports depression Endocrine: Endocrine: Reports cold intolerance Hematologic/Lymphatic: Hematologic/Lymphatic: Reports no additional hematologic/lymphatic complaints Allergic/Immunologic: Allergic/Immunologic: Denies wheezing PMFSH Past Medical History Medical History Anxiety Below knee amputation CAD (coronary artery disease) Chronic pain syndrome Depression Gastroparesis History of gastrostomy tube placement History of peptic ulcer disease HTN (hypertension) IDDM (insulin dependent diabetes mellitus) Liver lesion Myocardial infarction Wheelchair bound Functional capacity: wheelchair bound Family History Family History Father Coronary arteriosclerosis Surgical History Surgical History History of back surgery Hx of BKA Social History Social History Household Members: None Housing: Apartment Are you a primary live in caregiver to a significant other at home: No Do you presently have visiting nurse or other home services: Yes (vna and tobacco sample puller) Alcohol intake: never Patient Tobacco Use Status: Never used Tobacco Use of substances other than those prescribed or required for medical reasons: No Advance Directives: Yes Advance Directives on File: Yes Advance Directives Date on File: 05/12/20 Patient : No service: No Current occupational status: disabled Meds Allergies Allergy/AdvReac Type Severity Reaction Status Date / Time Penicillins [PENICILLINS] Allergy Mild HIVES Verified 05/25/20 04:33 clarithromycin [From Biaxin] Allergy Unknown HIVES Verified 05/25/20 04:33 penicillin V Allergy Unknown rash, Verified 05/25/20 04:33 throat tight bioxin Allergy Unknown Unknown Uncoded 05/25/20 04:33 penicillin Allergy Unknown Unknown Uncoded 05/25/20 04:33 Active Medications: Current Medications Acetaminophen (Acetaminophen 325 Mg Tablet) 650 mg PO Q6H PRN PRN Reason: Pain, Mild (Pain Scale 1-3) Hydromorphone HCl (Hydromorphone Hcl 1 Mg/Ml Syringe) 1 mg IVPUSH Q4H PRN; Protocol PRN Reason: Pain, Severe (Pain Scale 7-10) Last Admin: 01/26/21 19:28 Dose: 1 mg Documented by: Melatonin (Melatonin 3 Mg Tablet) 6 mg PO BEDTIME PRN PRN Reason: Insomnia Sodium Chloride (0.9 % Sodium Chloride Flush 3 Ml Syringe) 3 [facility] Last Admin: 01/26/21 15:31 Dose: Not Given Documented by: Home Medications Medication Instructions Recorded Confirmed Last Taken Type alprazolam 1 mg tablet (Xanax) 1 mg PO TID 04/10/20 05/12/20 Unknown History fdvpdynrec-gaxauekpltxpj-vymbjobu 1 tab PO TID PRN 04/10/20 05/12/20 Unknown History 50 mg-325 mg-40 mg tablet promethazine 25 mg tablet 25 mg PO TID PRN 04/10/20 05/12/20 Unknown History amitriptyline 50 mg tablet 50 mg PO BEDTIME 05/12/20 05/12/20 Unknown History aspirin 81 mg tablet,delayed 81 mg PO DAILY 05/12/20 05/12/20 Unknown History release atorvastatin 80 mg tablet 80 mg PO DAILY 05/12/20 05/12/20 Unknown History bisacodyl 5 mg tablet 5 mg PO BID PRN 05/12/20 05/12/20 Unknown History insulin regular hum U-500 conc 500 200 unit SUBCUT BEDTIME 05/12/20 05/12/20 U nknown History unit/mL subcutaneous soln (Humulin R U-500 (Concentrated) Insulin) insulin regular hum U-500 conc 500 250 unit SUBCUT QAM 05/12/20 05/12/20 Unknown History unit/mL subcutaneous soln (Humulin R U-500 (Concentrated) Insulin) isosorbide mononitrate 30 mg 30 mg PO DAILY 05/12/20 05/12/20 Unknown History tablet,extended release 24 hr lactulose 20 gram/30 mL oral 20 g PO TID PRN 05/12/20 05/12/20 Unknown History solution losartan 100 mg tablet 100 mg PO DAILY 05/12/20 05/12/20 Unknown History metoclopramide HCl 10 mg tablet 10 mg PO Q6H PRN 05/12/20 05/12/20 Unknown History metoprolol succinate 100 mg 100 mg PO BID 05/12/20 05/12/20 Unknown History tablet,extended release 24 hr niacin 1,000 mg tablet,extended 1,000 mg PO BEDTIME 05/12/20 05/12/20 Unknown History release 24 hr omeprazole 20 mg capsule,delayed 20 mg PO BID 05/12/20 05/12/20 Unknown History release polyethylene glycol 3350 17 17 g PO DAILY 05/12/20 05/12/20 Unknown History gram/dose oral powder (Miralax) topiramate 100 mg tablet 100 mg PO BID 05/12/20 05/12/20 Unknown History Physical Exam Vital Signs: Vital Signs: Last Vital Signs Temp 98.4 F 01/26/21 14:59 Pulse 83 01/26/21 14:59 Resp 14 01/26/21 14:59 BP 147/61 H 01/26/21 14:59 Pulse Ox 100 01/26/21 14:59 Body Mass Index 46.3 Const: Other: Constitutional: Aoverweight. Mental Status: Oriented to person, place and time. Eyes: Pupils are equal, round and reactive to light. Ear, Nose and Throat: Oropharynx clear, mucous membranes moist. Ears and nose without deformities. Respiratory: Clear to auscultation. No wheezing, rales or rhonchi. Cardiovascular: S1 S2 regular. No murmurs, rubs or gallops. Gastrointestinal: Abdomen soft, diffuse non-specific tenderness ruq and epigastrium, no rebound, no guarding Neurologic: Cranial nerves II-XII grossly intact. No focal neurological deficits. Moves all extremities spontaneously.? Skin: No rashes or lesions.? Musculoskeletal: No cyanosis or clubbing. right below knee amputation, stump clean Psychiatric: Normal mood and affect? General: alert and ill appearing HENMT: Head: Yes normocephalic and Yes atraumatic Ears: hearing grossly normal bilaterally Eyes: Sclerae: sclerae normal EOM: EOMs intact bilaterally Resp: Effort & Inspection: normal respiratory effort Auscultation: clear to auscultation bilaterally Cardio: Rate: regular rate Rhythm: regular rhythm GI: Other: Round, soft, more prominent on the right, subcutaneous hardware left upper quadrant consistent with gastric pacemaker, mildly to moderately tender epigastrium and medial right subcostal area, no palpable masses, no organomegaly Rectal Exam - Female: deferred Skin: Other: Warm General skin exam: no rashes or lesions noted Extrem: Other: Right below-knee amputation Results Labs CBC & Chem 7: 01/26/21 05:10 01/26/21 05:10 Labs: Short CBC 01/26/21 Range/Units 05:10 WBC 9.8 (4.8-10.8) X10*3/uL Hgb 13.2 (12.0-16.0) g/dl Hct 39.7 (37.0-47.0) % Plt Count 187 (160-400) X10*3/uL BMP 01/26/21 05:10 Sodium 138 Potassium 4.7 D Chloride 105 Carbon Dioxide 24 BUN 9 Creatinine 0.80 Calcium 9.3 Liver Function 01/26/21 Range/Units 05:10 Total Bilirubin 0.3 (0.0-1.0) mg/dL Direct Bilirubin < 0.2 (0.0-0.5) mg/dL AST 16 (5-31) U/L ALT 16 (0-31) U/L Alkaline Phosphatase 119 H (39-117) U/L Albumin 4.2 (3.5-5.0) g/dL Imaging CT scan - abdomen: Attestation: I personally reviewed and interpreted this imaging study as follows: My impression: constipation, pacemaker leads in antrum, appropriate placement-no migration, patchy atherosclerosis of aorta and branches, spinal degen and spondylolisthesis Assessment and Plan (1) Abdominal pain: Qualifiers: Abdominal location: generalized Qualified Code(s): R10.84 - Generalized abdominal pain Status: Acute (2) Gastroparesis: Status: Acute (3) Chronic pain syndrome: Status: Acute 1/ RUQ and epigastric pain, possibly 2/2 to biliary disease. She is already on PPI and her symptoms dont really correspond to typical PUD> She is also on chronic pain medications and has poorly controlled DM which might impair the normal immune response seen with cholecystitis. DDX for her sx include myofascial pain or referred pain from the spine, mesenteric ischemia or exacerbation of her underlying gastroparesis, constipation related or narcotic bowel syndrome, drug seeking behavior PLAN: 1/ HIDA--if neg then mesenteric doppler 2/ limit opiates as able, can use movantik to reduce bowel effects of narcotics or use miralax BID with colace and enemas prn if unable to get POA like movantik or relistor 3/ switch to IV PPI until able to take PO 4/ titrate up gabapentin to 300 mg TID if work up neg Procedures Date of Service Date of Service: 01/26/21
--- NOTE | 2021-01-26 22:46 | PHA.MEDREC ---
Pharmacy Consult ? Medication Reconciliation Pharmacy has completed the medication reconciliation. Patient unaware of home medications. Daughter Codie handles meds but is also unsure if medication list is up to date. Will not verify insulin until AM since pharmacy is closed
--- NOTE | 2021-01-26 23:45 | PC.NURSE ---
medicated pt per mar
[2021-01-27] VITALS (10 sets, daily range): BP systolic 121–182; BP diastolic 53–83; PULSE 72–120; RESP 16–20; TEMP 36–36.8; O2SAT 94–98; BMI 46.3
--- NOTE | 2021-01-27 00:46 | PC.NURSE ---
Report called to inpt RN, pt transported to floor via hospital bed by this RN and AMARA Haile. Delivered in stable condition w/ all belongings
[2021-01-27] MEDS: ondansetron HCL 4 MG/2 ML VIAL IVPUSH (02:55)
[2021-01-27] MEDS: HYDROmorphone HCl 1 MG/ML SYRINGE IVPUSH ×3 (03:42→11:19)
[2021-01-27] MEDS: 0.9 % Sodium Chloride Flush 3 ML SYRINGE IVFLUSH ×3 (07:42→20:11)
--- NOTE | 2021-01-27 08:48 | MHC.CM.PN ---
CM ATTEMPTED TO MEET WITH PT WHO WAS UNABLE TO PARTICIPATE FULLY DUE TO NAUSEA. PT CONFIRMS SHE STILL HAS [employer]ILY [employer] AND DENIES HAVING [facility] PT IS W/C BOUND AT BASELINE. LAST PCP ON RECORD WAS VICENTE HARKINS CURRENT DC PLAN IS HOME WITH RESUMPTION OF [employer]ILY [employer]
[2021-01-27] MEDS: ALPRAZolam 0.5 MG TABLET 1 MG PO ×3 (10:26→20:07)
[2021-01-27] MEDS: Gabapentin 300 MG CAPSULE 600 MG PO ×3 (10:27→19:59)
[2021-01-27] MEDS: Omeprazole 20 MG CAPSULE.DR PO (11:22)
--- NOTE | 2021-01-27 11:40 | HO.PM.IMPN ---
Subjective Subjective Date of Service: 01/27/21 Interval History: Seen in f/u for abdominal pain with some gallstones, still with pain Review of Systems +nausea and abdominal pain, no fever Physical Exam Vital Signs: Vital Signs: Last Vital Signs Temp 98.3 F 01/27/21 07:38 Pulse 114 H 01/27/21 07:38 Resp 20 01/27/21 07:38 BP 182/83 H 01/27/21 07:38 Pulse Ox 98 01/27/21 07:38 Body Mass Index 46.3 Const: Other: General: AO X 3, no acute distress Resp: CTA bilateral CVS: S1,S2,RRR GI: +BS, NT, non-specific tenderness Skin: No rash, right bka Neuro: motor grossly intact Psych: appropriate affect Objective Data Active Medications Acetaminophen (Acetaminophen 325 Mg Tablet) 650 mg PO Q6H PRN PRN Reason: Pain, Mild (Pain Scale 1-3) Acetaminophen/Butalbital/Caffeine (Butalb/Acetamin/Caff 50/325/40 Tablet) 1 tab PO TID PRN PRN Reason: Headache Alprazolam (Alprazolam 0.5 Mg Tablet) 1 mg PO TID [facility] Last Admin: 01/27/21 10:26 Dose: 1 mg Documented by: KENROY Amitriptyline HCl (Amitriptyline Hcl 50 Mg Tablet) 50 mg PO BEDTIME [facility] Aspirin (Aspirin Enteric Coated 81 Mg Tablet.Dr) 81 mg PO DAILY [facility] Atorvastatin Calcium (Atorvastatin Calcium 80 Mg Tablet) 80 mg PO BEDTIME [facility] Gabapentin (Gabapentin 300 Mg Capsule) 600 mg PO TID [facility] Last Admin: 01/27/21 10:27 Dose: 600 mg Documented by: KENROY Hydromorphone HCl (Hydromorphone Hcl 2 Mg Tablet) 2 mg PO QID [facility] Hydromorphone HCl (Hydromorphone Hcl 1 Mg/Ml Syringe) 1 mg IVPUSH Q3H PRN; Protocol PRN Reason: Pain, Severe (Pain Scale 7-10) Last Admin: 01/27/21 11:19 Dose: 1 mg Documented by: KENROY Isosorbide Mononitrate (Isosorbide Mononitrate 30 Mg Tab.Er.24h) 30 mg PO DAILY [facility]; Protocol Last Admin: 01/27/21 11:23 Dose: Not Given Documented by: KENROY Non-Admin Reason: Patient Refused Losartan Potassium (Losartan Potassium 50 Mg Tablet) 100 mg PO DAILY [facility]; Protocol Last Admin: 01/27/21 11:23 Dose: Not Given Documented by: KENROY Non-Admin Reason: Patient Refused Melatonin (Melatonin 3 Mg Tablet) 6 mg PO BEDTIME PRN PRN Reason: Insomnia Metoclopramide HCl (Metoclopramide Hcl 10 Mg Tablet) 10 mg PO Q6H PRN PRN Reason: Nausea And Vomiting Metoprolol Succinate (Metoprolol Succinate Er 100 Mg Tab.Er.24h) 100 mg PO BID [facility]; Protocol Niacin (Niacin Er 250 Mg Tablet.Er) 1,000 mg PO BEDTIME [facility] Omeprazole (Omeprazole 20 Mg Capsule.Dr) 20 mg PO BID [facility] Last Admin: 01/27/21 11:22 Dose: 20 mg Documented by: KENROY Polyethylene Glycol (Polyethylene Glycol 3350 17 Gm Powd.Pack) 17 gm PO DAILY PRN PRN Reason: Constipation Promethazine HCl (Promethazine Hcl 25 Mg Tablet) 25 mg PO TID PRN PRN Reason: Nausea And Vomiting Sodium Chloride (0.9 % Sodium Chloride Flush 3 Ml Syringe) 3 ml IVFLUSH QSHIFT [facility] Last Admin: 01/27/21 07:42 Dose: 3 ml Documented by: KENROY Topiramate (Topiramate 100 Mg Tablet) 100 mg PO BID [facility] Last Admin: 01/27/21 11:23 Dose: Not Given Documented by: KENROY Non-Admin Reason: Patient Refused Labs CBC & Chem 7: 01/26/21 05:10 01/26/21 05:10 Labs: Laboratory Results - last 24 hr 01/26/21 14:35 POC Glucose 232 H Microbiology Microbiology Results: Microbiology 01/26/21 05:11 Blood Culture - Preliminary Blood - Venous No growth after 24 hours. 01/26/21 05:10 Blood Culture - Preliminary Blood - Venous No growth after 24 hours. Assessment and Plan (1) Abdominal pain: Status: Acute Assessment and Plan: 60/F with chronic abdominal pain, diabetes gastroparesis, here with some abdominal pain, edtiology not clear, there intra and extrahepatic biliary dilation,? gallblader sludge on US, normal WBC, nomrmal LFTs, I think this diabetes gastroparesis manisfeting with underlying chronic pain. 1/Abd pain, gallstones, clinically no acute cholecystitis, HiDA to further assess, but she has been refusing to have this done pain management with dilaudid, already seen by surgeon and no indication for procedure 2/Diabetes--SSI, resume home meds when med rec done 3/ HTN--continue Losartan, Imdur, Metoprolol 4/ HLD--statin Quality Stroke Does the patient have a stroke diagnosis?: No VTE Prior VTE?: No VTE Risk Level:: Medical - moderate - high VTE Device Contraindication: Treatment Not Tolerated VTE Drug Contraindication: N/A - Med Ordered
--- NOTE | 2021-01-27 11:56 | P.PNGS_ITS ---
Subjective Subjective Date of Service: 01/27/21 Interval history: Patient reporting nausea and vomiting, epigastric abdominal pain. She is refusing HIDA scan today. Physical Exam Vital Signs: Vital Signs: Last Vital Signs Temp 98.3 F 01/27/21 07:38 Pulse 114 H 01/27/21 07:38 Resp 20 01/27/21 07:38 BP 182/83 H 01/27/21 07:38 Pulse Ox 98 01/27/21 07:38 Body Mass Index 46.3 Const: General: in distress, anxious and tired appearing Nutritional Appearance: obese Orientation/consciousness: patient oriented x3 HENMT: Head: Yes normocephalic and Yes atraumatic Ears: hearing grossly normal bilaterally Resp: Effort & Inspection: normal respiratory effort, no cough, no respiratory distress and no stridor GI: Inspection: Yes normal to inspection Palpation (GI): Soft to palpation, Tenderness to palpation present (GI) in the epigastrum, no guarding and not rigid Percussion: Yes normal to percussion Rectal Exam - Female: deferred Skin: General skin exam: no rashes or lesions noted Neuro: General: patient oriented x3 Extrem: General: No edema Psych: Appearance: disheveled Affect: Animated affect present and Anxious affect present Procedures Date of Service Date of Service: 01/27/21 Progress Note: A&P Assessment and plan (1) Abdominal pain: Status: Acute (2) Cholelithiasis: Status: Acute Assessment and Plan: 60-year-old female patient with multiple medical problems including diabetic gastroparesis presenting with worsening upper abdominal pain nausea and vomiting as well as imaging findings of cholelithiasis by ultrasound and CT without evidence of acute cholecystitis.? Differential includes ulcer disease, gastroparesis, biliary colic. HIDA scan would be helpful to evaluate gallbladder function but unfortunately the patient is refusing at this time. Hopefully the this study could be obtained tomorrow if the patient is more comfortable. Will continue to follow along with you. Fall Risk Details Current Medications: Current Medications Acetaminophen (Acetaminophen 325 Mg Tablet) 650 mg PO Q6H PRN PRN Reason: Pain, Mild (Pain Scale 1-3) Acetaminophen/Butalbital/Caffeine (Butalb/Acetamin/Caff 50/325/40 Tablet) 1 tab PO TID PRN PRN Reason: Headache Alprazolam (Alprazolam 0.5 Mg Tablet) 1 mg PO TID [facility] Last Admin: 01/27/21 10:26 Dose: 1 mg Documented by: Amitriptyline HCl (Amitriptyline Hcl 50 Mg Tablet) 50 mg PO BEDTIME [facility] Aspirin (Aspirin Enteric Coated 81 Mg Tablet.) 81 mg PO DAILY [facility] Atorvastatin Calcium (Atorvastatin Calcium 80 Mg Tablet) 80 mg PO BEDTIME [facility] Gabapentin (Gabapentin 300 Mg Capsule) 600 mg PO TID [facility] Last Admin: 01/27/21 10:27 Dose: 600 mg Documented by: Hydromorphone HCl (Hydromorphone Hcl 2 Mg Tablet) 2 mg PO QID [facility] Hydromorphone HCl (Hydromorphone Hcl 1 Mg/Ml Syringe) 1 mg IVPUSH Q3H PRN; Protocol PRN Reason: Pain, Severe (Pain Scale 7-10) Last Admin: 01/27/21 11:19 Dose: 1 mg Documented by: Isosorbide Mononitrate (Isosorbide Mononitrate 30 Mg Tab.Er.24h) 30 mg PO DAILY [facility]; Protocol Last Admin: 01/27/21 11:23 Dose: Not Given Documented by: Losartan Potassium (Losartan Potassium 50 Mg Tablet) 100 mg PO DAILY [facility]; Protocol Last Admin: 01/27/21 11:23 Dose: Not Given Documented by: Melatonin (Melatonin 3 Mg Tablet) 6 mg PO BEDTIME PRN PRN Reason: Insomnia Metoclopramide HCl (Metoclopramide Hcl 10 Mg Tablet) 10 mg PO Q6H PRN PRN Reason: Nausea And Vomiting Metoprolol Succinate (Metoprolol Succinate Er 100 Mg Tab.Er.24h) 100 mg PO BID [facility]; Protocol Niacin (Niacin Er 250 Mg Tablet.Er) 1,000 mg PO BEDTIME [facility] Omeprazole (Omeprazole 20 Mg Capsule.) 20 mg PO BID [facility] Last Admin: 01/27/21 11:22 Dose: 20 mg Documented by: Polyethylene Glycol (Polyethylene Glycol 3350 17 Gm Powd.Pack) 17 gm PO DAILY PRN PRN Reason: Constipation Promethazine HCl (Promethazine Hcl 25 Mg Tablet) 25 mg PO TID PRN PRN Reason: Nausea And Vomiting Sodium Chloride (0.9 % Sodium Chloride Flush 3 Ml Syringe) [address] [facility] [address] Last Admin: 01/27/21 07:42 Dose: 3 ml Documented by: Topiramate (Topiramate 100 Mg Tablet) 100 mg PO BID [facility] Last Admin: 01/27/21 11:23 Dose: Not Given Documented by: Time Spent With Patient Time: Total time spent is greater than 50% in coordination of care (as documented) at patient's floor/unit and/or counseling patient: Time with patient: 25 - 35 minutes Quality Stroke Does the patient have a stroke diagnosis?: No VTE Prior VTE?: No VTE Risk Level:: Medical - moderate - high VTE Device Contraindication: Treatment Not Tolerated VTE Drug Contraindication: N/A - Med Ordered
[2021-01-27] MEDS: HYDROmorphone HCl 2 MG TABLET PO ×3 (13:57→19:59)
--- NOTE | 2021-01-27 14:11 | PC.NURSE ---
Pt refusing blood pressure medications even though she knows her BP is running high. Pt asking for nausea medication have offered to her several times, refusing due to being PO. Pt did take her neurontin, atarax and dilaudid PO.
[2021-01-27 16:07] LABS: Glucose, Whole Blood 393 mg/dL (60-115)
--- NOTE | 2021-01-27 16:43 | PC.NURSE ---
patient refuses bed alarm
[2021-01-27] MEDS: Acetaminophen 325 MG TABLET 650 MG PO (16:46)
[2021-01-27] MEDS: Promethazine HCL 25 MG TABLET PO (16:46)
[2021-01-27] MEDS: Pantoprazole Sodium 40 MG/10 ML VIAL IVPUSH (17:33)
[2021-01-27] MEDS: Amitriptyline HCl 50 MG TABLET PO (20:02)
[2021-01-27] MEDS: Topiramate 100 MG TABLET PO (20:02)
[2021-01-27] MEDS: Metoprolol Succinate ER 100 MG TAB.ER.24H PO (20:03)
[2021-01-27] MEDS: Atorvastatin Calcium 80 MG TABLET PO (20:05)
[2021-01-27] MEDS: Enoxaparin Sodium 40 MG/0.4 ML SYRINGE SUBCUT (20:08)
[2021-01-27 21:08] LABS: Glucose, Whole Blood 303 mg/dL (60-115)
[2021-01-28] VITALS (11 sets, daily range): BP systolic 109–130; BP diastolic 57–67; PULSE 69–80; RESP 16–20; TEMP 36–36.7; O2SAT 95–99
[2021-01-28] MEDS: Promethazine HCL 25 MG TABLET PO ×2 (03:44→12:42)
[2021-01-28] MEDS: HYDROmorphone HCl 1 MG/ML SYRINGE IVPUSH ×3 (03:51→12:42)
[2021-01-28] MEDS: Pantoprazole Sodium 40 MG/10 ML VIAL IVPUSH ×2 (06:03→15:08)
[2021-01-28 08:08] LABS: Glucose, Whole Blood 284 mg/dL (60-115)
--- NOTE | 2021-01-28 08:10 | PM.PNGS ---
Subjective Subjective Date of Service: 01/28/21 Interval history: Patient is sleeping, resting quietly. Required Dilaudid this morning. Physical Exam Vital Signs: Vital Signs: Last Vital Signs Temp 96.8 F 01/28/21 07:55 Pulse 69 01/28/21 07:55 Resp 18 01/28/21 07:55 BP 129/59 L 01/28/21 07:55 Pulse Ox 98 01/28/21 07:55 Body Mass Index 46.3 Const: General: comfortable Nutritional Appearance: obese HENMT: Head: Yes normocephalic and Yes atraumatic Resp: Effort & Inspection: normal respiratory effort, no audible wheezes, no cough and no respiratory distress GI: Inspection: Yes normal to inspection Palpation (GI): Soft to palpation and Tenderness to palpation present (GI) in the epigastrum Skin: General skin exam: no rashes or lesions noted Extrem: General: Yes normal to inspection Procedures Date of Service Date of Service: 01/28/21 Progress Note: A&P Assessment and plan (1) Abdominal pain: Status: Acute (2) Cholelithiasis: Status: Acute Assessment and Plan: 60-year-old female patient presenting with complaints of chronic abdominal pain now with epigastric abdominal pain associated with nausea vomiting. 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 Patient found to have cholelithiasis on CT and ultrasound. She is awaiting a HIDA scan to evaluate gallbladder function. She seems more comfortable this morning and may be comfortable enough to undergo this testing. Will continue to monitor patient's symptoms. Fall Risk Details Current Medications: Current Medications Acetaminophen (Acetaminophen 325 Mg Tablet) 650 mg PO Q6H PRN PRN Reason: Pain, Mild (Pain Scale 1-3) Last Admin: 01/27/21 16:46 Dose: 650 mg Documented by: Acetaminophen/Butalbital/Caffeine (Butalb/Acetamin/Caff 50/325/40 Tablet) 1 tab PO TID PRN PRN Reason: Headache Alprazolam (Alprazolam 0.5 Mg Tablet) 1 mg PO TID [facility] Last Admin: 01/27/21 20:07 Dose: 1 mg Documented by: Amitriptyline HCl (Amitriptyline Hcl 50 Mg Tablet) 50 mg PO BEDTIME [facility] Last Admin: 01/27/21 20:02 Dose: 50 mg Documented by: Aspirin (Aspirin Enteric Coated 81 Mg Tablet.Dr) 81 mg PO DAILY [facility] Atorvastatin Calcium (Atorvastatin Calcium 80 Mg Tablet) 80 mg PO BEDTIME [facility] Last Admin: 01/27/21 20:05 Dose: 80 mg Documented by: Enoxaparin Sodium (Enoxaparin Sodium 40 Mg/0.4 Ml Syringe) 40 mg SUBCUT Q24H [facility] Last Admin: 01/27/21 20:08 Dose: 40 mg Documented by: Gabapentin (Gabapentin 300 Mg Capsule) 600 mg PO TID [facility] Last Admin: 01/27/21 19:59 Dose: 600 mg Documented by: Hydromorphone HCl (Hydromorphone Hcl 2 Mg Tablet) 2 mg PO QID [facility] Last Admin: 01/27/21 19:59 Dose: 2 mg Documented by: Hydromorphone HCl (Hydromorphone Hcl 1 Mg/Ml Syringe) 1 mg IVPUSH Q3H PRN; Protocol PRN Reason: Pain, Severe (Pain Scale 7-10) Last Admin: 01/28/21 03:51 Dose: 1 mg Documented by: Promethazine HCl 12.5 mg/ (Sodium Chloride) 50.5 mls @ 202 mls/hr IV Q6H PRN PRN Reason: nausea and vomitting Isosorbide Mononitrate (Isosorbide Mononitrate 30 Mg Tab.Er.24h) 30 mg PO DAILY [facility]; Protocol Last Admin: 01/27/21 11:23 Dose: Not Given Documented by: Losartan Potassium (Losartan Potassium 50 Mg Tablet) 100 mg PO DAILY [facility]; Protocol Last Admin: 01/27/21 11:23 Dose: Not Given Documented by: Melatonin (Melatonin 3 Mg Tablet) 6 mg PO BEDTIME PRN PRN Reason: Insomnia Metoclopramide HCl (Metoclopramide Hcl 10 Mg Tablet) 10 mg PO Q6H PRN PRN Reason: Nausea And Vomiting Metoprolol Succinate (Metoprolol Succinate Er 100 Mg Tab.Er.24h) 100 mg PO BID [facility]; Protocol Last Admin: 01/27/21 20:03 Dose: 100 mg Documented by: Niacin (Niacin Er 250 Mg Tablet.Er) 1,000 mg PO BEDTIME [facility] Last Admin: 01/27/21 20:05 Dose: 1,000 mg Documented by: Pantoprazole Sodium (Pantoprazole Sodium 40 Mg/10 Ml Vial) 40 mg IVPUSH BID@0630,1630 [facility] Last Admin: 01/28/21 06:03 Dose: 40 mg Documented by: Polyethylene Glycol (Polyethylene Glycol 3350 17 Gm Powd.Pack) 17 gm PO DAILY PRN PRN Reason: Constipation Promethazine HCl (Promethazine Hcl 25 Mg Tablet) 25 mg PO TID PRN PRN Reason: Nausea And Vomiting Last Admin: 01/28/21 03:44 Dose: 25 mg Documented by: Sodium Chloride (0.9 % Sodium Chloride Flush 3 Ml Syringe) 3 ml IVFLUSH QSHIFT [facility] Last Admin: 01/27/21 20:11 Dose: 3 ml Documented by: Topiramate (Topiramate 100 Mg Tablet) 100 mg PO BID [facility] Last Admin: 01/27/21 20:02 Dose: 100 mg Documented by: Time Spent With Patient Time: Total time spent is greater than 50% in coordination of care (as documented) at patient's floor/unit and/or counseling patient: Time with patient: 15 - 24 minutes Quality Stroke Does the patient have a stroke diagnosis?: No VTE Prior VTE?: No VTE Risk Level:: Medical - moderate - high VTE Device Contraindication: Treatment Not Tolerated VTE Drug Contraindication: N/A - Med Ordered
[2021-01-28] MEDS: Gabapentin 300 MG CAPSULE 600 MG PO ×3 (09:09→21:43)
[2021-01-28] MEDS: HYDROmorphone HCl 2 MG TABLET PO ×4 (09:09→21:56)
[2021-01-28] MEDS: ALPRAZolam 0.5 MG TABLET 1 MG PO ×3 (09:09→21:43)
[2021-01-28] MEDS: Aspirin Enteric Coated 81 MG TABLET.DR PO (09:10)
[2021-01-28] MEDS: Topiramate 100 MG TABLET PO ×2 (09:10→21:44)
[2021-01-28] MEDS: Isosorbide Mononitrate 30 MG TAB.ER.24H PO (09:10)
[2021-01-28] MEDS: Losartan Potassium 50 MG TABLET 100 MG PO (09:10)
[2021-01-28] MEDS: Metoprolol Succinate ER 100 MG TAB.ER.24H PO (09:11)
[2021-01-28] MEDS: 0.9 % Sodium Chloride Flush 3 ML SYRINGE IVFLUSH ×3 (09:13→21:45)
[2021-01-28] MEDS: Metoclopramide HCl 10 MG TABLET PO (09:16)
[2021-01-28] MEDS: Butalb/Acetamin/Caff 50/325/40 TABLET 1 TAB PO (09:16)
--- NOTE | 2021-01-28 11:33 | HO.PM.IMPN ---
Subjective Subjective Date of Service: 01/28/21 Interval History: Seen in f/u for abdominal pain with some gallstones, still with pain but more comfortable today Review of Systems abd pain, no fever, Physical Exam Vital Signs: Vital Signs: Last Vital Signs Temp 96.8 F 01/28/21 07:55 Pulse 69 01/28/21 09:11 Resp 19 01/28/21 09:52 BP 129/59 L 01/28/21 09:11 Pulse Ox 98 01/28/21 07:55 Body Mass Index 46.3 General: AO X 3, no acute distress, more comfortable today Resp: CTA bilateral CVS: S1,S2,RRR GI: +BS, NT, no distention, non specific tenderness Skin: No rash Neuro: motor grossly intact Psych: appropriate affect Objective Data Active Medications Acetaminophen (Acetaminophen 325 Mg Tablet) 650 mg PO Q6H PRN PRN Reason: Pain, Mild (Pain Scale 1-3) Last Admin: 01/27/21 16:46 Dose: 650 mg Documented by: ALFREDO Acetaminophen/Butalbital/Caffeine (Butalb/Acetamin/Caff 50/325/40 Tablet) 1 tab PO TID PRN PRN Reason: Headache Last Admin: 01/28/21 09:16 Dose: 1 tab Documented by: BRITTNYEMA Alprazolam (Alprazolam 0.5 Mg Tablet) 1 mg PO TID [facility] Last Admin: 01/28/21 09:09 Dose: 1 mg Documented by: BRITTNYEMA Amitriptyline HCl (Amitriptyline Hcl 50 Mg Tablet) 50 mg PO BEDTIME [facility] Last Admin: 01/27/21 20:02 Dose: 50 mg Documented by: EVAN Aspirin (Aspirin Enteric Coated 81 Mg Tablet.) 81 mg PO DAILY [facility] Last Admin: 01/28/21 09:10 Dose: 81 mg Documented by: SCOTT Atorvastatin Calcium (Atorvastatin Calcium 80 Mg Tablet) 80 mg PO BEDTIME [facility] Last Admin: 01/27/21 20:05 Dose: 80 mg Documented by: EVAN Enoxaparin Sodium (Enoxaparin Sodium 40 Mg/0.4 Ml Syringe) 40 mg SUBCUT Q24H [facility] Last Admin: 01/27/21 20:08 Dose: 40 mg Documented by: EVAN Gabapentin (Gabapentin 300 Mg Capsule) 600 mg PO TID [facility] Last Admin: 01/28/21 09:09 Dose: 600 mg Documented by: COTEMA Hydromorphone HCl (Hydromorphone Hcl 2 Mg Tablet) 2 mg PO QID [facility] Last Admin: 01/28/21 09:09 Dose: 2 mg Documented by: COTEMA Hydromorphone HCl (Hydromorphone Hcl 1 Mg/Ml Syringe) 1 mg IVPUSH Q3H PRN; Protocol PRN Reason: Pain, Severe (Pain Scale 7-10) Last Admin: 01/28/21 09:52 Dose: 1 mg Documented by: COTEMA Promethazine HCl 12.5 mg/ (Sodium Chloride) 50.5 mls @ 202 mls/hr IV Q6H PRN PRN Reason: nausea and vomitting Isosorbide Mononitrate (Isosorbide Mononitrate 30 Mg Tab.Er.24h) 30 mg PO DAILY [facility]; Protocol Last Admin: 01/28/21 09:10 Dose: 30 mg Documented by: COTEMA Losartan Potassium (Losartan Potassium 50 Mg Tablet) 100 mg PO DAILY [facility]; Protocol Last Admin: 01/28/21 09:10 Dose: 100 mg Documented by: BRITTNYEMA Melatonin (Melatonin 3 Mg Tablet) 6 mg PO BEDTIME PRN PRN Reason: Insomnia Methylnaltrexone [place] (Methylnaltrexone [place] 8 Mg/0.4 Ml Syringe) 4 mg SUBCUT ONCE ONE Stop: 01/28/21 11:32 Metoclopramide HCl (Metoclopramide Hcl 10 Mg Tablet) 10 mg PO Q6H PRN PRN Reason: Nausea And Vomiting Last Admin: 01/28/21 09:16 Dose: 10 mg Documented by: SCOTT Metoprolol Succinate (Metoprolol Succinate Er 100 Mg Tab.Er.24h) 100 mg PO BID [facility]; Protocol Last Admin: 01/28/21 09:11 Dose: 100 mg Documented by: COTEMA Niacin (Niacin Er 250 Mg Tablet.Er) 1,000 mg PO BEDTIME [facility] Last Admin: 01/27/21 20:05 Dose: 1,000 mg Documented by: SHERIDL Pantoprazole Sodium (Pantoprazole Sodium 40 Mg/10 Ml Vial) 40 mg IVPUSH BID@0630,1630 [facility] Last Admin: 01/28/21 06:03 Dose: 40 mg Documented by: EVAN Polyethylene Glycol (Polyethylene Glycol 3350 17 Gm Powd.Pack) 17 gm PO DAILY PRN PRN Reason: Constipation Promethazine HCl (Promethazine Hcl 25 Mg Tablet) 25 mg PO TID PRN PRN Reason: Nausea And Vomiting Last Admin: 01/28/21 03:44 Dose: 25 mg Documented by: EVAN Sodium Chloride (0.9 % Sodium Chloride Flush 3 Ml Syringe) 3 ml IVFLUSH QSHIFT [facility] Last Admin: 01/28/21 09:13 Dose: 3 ml Documented by: COTJOSE Topiramate (Topiramate 100 Mg Tablet) 100 mg PO BID [facility] Last Admin: 01/28/21 09:10 Dose: 100 mg Documented by: COTJOSE Labs CBC & Chem 7: 01/26/21 05:10 01/26/21 05:10 Labs: Laboratory Results - last 24 hr 01/27/21 01/27/21 01/28/21 15:27 19:37 07:28 POC Glucose 393 H* 303 H 284 H Microbiology Microbiology Results: Microbiology 01/26/21 05:11 Blood Culture - Preliminary Blood - Venous No growth after 48 hours. 01/26/21 05:10 Blood Culture - Preliminary Blood - Venous No growth after 48 hours. Assessment and Plan (1) Abdominal pain: Status: Acute Assessment and Plan: 60/F with chronic abdominal pain, diabetes gastroparesis, here with some abdominal pain, edtiology not clear, there intra and extrahepatic biliary dilation,? gallblader sludge on US, normal WBC, nomrmal LFTs, I think this diabetes gastroparesis manisfeting with underlying chronic pain. 1/Abd pain, gallstones, clinically no acute cholecystitis, HiDA to further assess, but she has been refusing until today--she is more comfortable today pain management with dilaudid, already seen by surgeon and no indication for procedure at this time. 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
[2021-01-28 16:44] LABS: Glucose, Whole Blood 348 mg/dL (60-115)
[2021-01-28] MEDS: Enoxaparin Sodium 40 MG/0.4 ML SYRINGE SUBCUT (18:05)
[2021-01-28 20:35] LABS: Glucose, Whole Blood 296 mg/dL (60-115)
[2021-01-28] MEDS: Atorvastatin Calcium 80 MG TABLET PO (21:43)
[2021-01-28] MEDS: Amitriptyline HCl 50 MG TABLET PO (21:43)
[2021-01-29 04:00] VITALS: BP 187/82; PULSE 88; RESP 17; TEMP 35.9; O2SAT 97
[2021-01-29 04:15] VITALS: BP 140/60
[2021-01-29] MEDS: HYDROmorphone HCl 1 MG/ML SYRINGE IVPUSH (05:04)
[2021-01-29] MEDS: Pantoprazole Sodium 40 MG/10 ML VIAL IVPUSH (06:05)
[2021-01-29 07:21] VITALS: BP 136/76; PULSE 95; RESP 18; TEMP 36.3; O2SAT 96
[2021-01-29 07:43] LABS: Glucose, Whole Blood 300 mg/dL (60-115)
--- NOTE | 2021-01-29 08:08 | P.PNGS_ITS ---
Subjective Subjective Date of Service: 01/29/21 Interval history: Patient is sleepy after pain medication reports better pain control. Was able to undergo HIDA scan yesterday. Physical Exam Vital Signs: Vital Signs: Last Vital Signs Temp 97.4 F 01/29/21 07:21 Pulse 95 01/29/21 07:21 Resp 18 01/29/21 07:21 BP 136/76 01/29/21 07:21 Pulse Ox 96 01/29/21 07:21 Body Mass Index 46.3 Resp: Effort & Inspection: normal respiratory effort GI: Inspection: Yes normal to inspection Palpation (GI): Soft to palpation, Tenderness to palpation present (GI) in the epigastrum, no guarding and No Rebound tenderness present Percussion: Yes normal to percussion Extrem: General: No edema Procedures Date of Service Date of Service: 01/29/21 Progress Note: A&P Assessment and plan (1) Abdominal pain: Status: Acute (2) Cholelithiasis: Status: Acute Assessment and Plan: 60-year-old female patient admitted with abdominal pain with a prior history of gastroparesis found to have cholelithiasis. Patient underwent HIDA scan yesterday although the report is not available at the time of this dictation. Contrast seen entering into bowel without obstruction. Unsure of gallbladder filling however. Will await final report. Fall Risk Details Current Medications: Current Medications Acetaminophen (Acetaminophen 325 Mg Tablet) 650 mg PO Q6H PRN PRN Reason: Pain, Mild (Pain Scale 1-3) Last Admin: 01/27/21 16:46 Dose: 650 mg Documented by: Acetaminophen/Butalbital/Caffeine (Butalb/Acetamin/Caff 50/325/40 Tablet) 1 tab PO TID PRN PRN Reason: Headache Last Admin: 01/28/21 09:16 Dose: 1 tab Documented by: Alprazolam (Alprazolam 0.5 Mg Tablet) 1 mg PO TID [facility] Last Admin: 01/28/21 21:43 Dose: 1 mg Documented by: Amitriptyline HCl (Amitriptyline Hcl 50 Mg Tablet) 50 mg PO BEDTIME [facility] Last Admin: 01/28/21 21:43 Dose: 50 mg Documented by: Aspirin (Aspirin Enteric Coated 81 Mg Tablet.) 81 mg PO DAILY [facility] Last Admin: 01/28/21 09:10 Dose: 81 mg Documented by: Atorvastatin Calcium (Atorvastatin Calcium 80 Mg Tablet) 80 mg PO BEDTIME [facility] Last Admin: 01/28/21 21:43 Dose: 80 mg Documented by: Enoxaparin Sodium (Enoxaparin Sodium 40 Mg/0.4 Ml Syringe) 40 mg SUBCUT Q24H [facility] Last Admin: 01/28/21 18:05 Dose: 40 mg Documented by: Gabapentin (Gabapentin 300 Mg Capsule) 600 mg PO TID [facility] Last Admin: 01/28/21 21:43 Dose: 600 mg Documented by: Hydromorphone HCl (Hydromorphone Hcl 2 Mg Tablet) 2 mg PO QID [facility] Last Admin: 01/28/21 21:56 Dose: 2 mg Documented by: Hydromorphone HCl (Hydromorphone Hcl 1 Mg/Ml Syringe) 1 mg IVPUSH Q3H PRN; Protocol PRN Reason: Pain, Severe (Pain Scale 7-10) Last Admin: 01/29/21 05:04 Dose: 1 mg Documented by: Promethazine HCl 12.5 mg/ (Sodium Chloride) 50.5 mls @ 202 mls/hr IV Q6H PRN PRN Reason: nausea and vomitting Isosorbide Mononitrate (Isosorbide Mononitrate 30 Mg Tab.Er.24h) 30 mg PO DAILY [facility]; Protocol Last Admin: 01/28/21 09:10 Dose: 30 mg Documented by: Losartan Potassium (Losartan Potassium 50 Mg Tablet) 100 mg PO DAILY [facility]; Protocol Last Admin: 01/28/21 09:10 Dose: 100 mg Documented by: Melatonin (Melatonin 3 Mg Tablet) 6 mg PO BEDTIME PRN PRN Reason: Insomnia Metoclopramide HCl (Metoclopramide Hcl 10 Mg Tablet) 10 mg PO Q6H PRN PRN Reason: Nausea And Vomiting Last Admin: 01/28/21 09:16 Dose: 10 mg Documented by: Metoprolol Succinate (Metoprolol Succinate Er 100 Mg Tab.Er.24h) 100 mg PO BID [facility]; Protocol Last Admin: 01/28/21 21:45 Dose: Not Given Documented by: Niacin (Niacin Er 250 Mg Tablet.Er) 1,000 mg PO BEDTIME [facility] Last Admin: 01/28/21 21:43 Dose: 1,000 mg Documented by: Pantoprazole Sodium (Pantoprazole Sodium 40 Mg/10 Ml Vial) 40 mg IVPUSH BID@0630,1630 [facility] Last Admin: 01/29/21 06:05 Dose: 40 mg Documented by: Polyethylene Glycol (Polyethylene Glycol 3350 17 Gm Powd.Pack) 17 gm PO DAILY PRN PRN Reason: Constipation Promethazine HCl (Promethazine Hcl 25 Mg Tablet) 25 mg PO TID PRN PRN Reason: Nausea And Vomiting Last Admin: 01/28/21 12:42 Dose: 25 mg Documented by: Sodium Chloride (0.9 % Sodium Chloride Flush 3 Ml Syringe) 3 ml IVFLUSH QSHIFT [facility] Last Admin: 01/28/21 21:45 Dose: 3 ml Documented by: Topiramate (Topiramate 100 Mg Tablet) 100 mg PO BID [facility] Last Admin: 01/28/21 21:44 Dose: 100 mg Documented by: Time Spent With Patient Time: Total time spent is greater than 50% in coordination of care (as documented) at patient's floor/unit and/or counseling patient: Time with patient: 15 - 24 minutes Quality Stroke Does the patient have a stroke diagnosis?: No VTE Prior VTE?: No VTE Risk Level:: Medical - moderate - high VTE Device Contraindication: Treatment Not Tolerated VTE Drug Contraindication: N/A - Med Ordered
[2021-01-29 09:33] VITALS: BP 136/76; PULSE 95
[2021-01-29] MEDS: Gabapentin 300 MG CAPSULE 600 MG PO ×2 (09:33→13:26)
[2021-01-29] MEDS: Metoprolol Succinate ER 100 MG TAB.ER.24H PO (09:33)
[2021-01-29] MEDS: Isosorbide Mononitrate 30 MG TAB.ER.24H PO (09:33)
[2021-01-29] MEDS: Losartan Potassium 50 MG TABLET 100 MG PO (09:33)
[2021-01-29] MEDS: Topiramate 100 MG TABLET PO (09:33)
[2021-01-29] MEDS: 0.9 % Sodium Chloride Flush 3 ML SYRINGE IVFLUSH (09:33)
[2021-01-29] MEDS: HYDROmorphone HCl 2 MG TABLET PO ×2 (09:34→13:26)
[2021-01-29] MEDS: Aspirin Enteric Coated 81 MG TABLET.DR PO (09:36)
[2021-01-29] MEDS: ALPRAZolam 0.5 MG TABLET 1 MG PO ×2 (09:36→13:26)
[2021-01-29] MEDS: Butalb/Acetamin/Caff 50/325/40 TABLET 1 TAB PO (09:42)
--- NOTE | 2021-01-29 11:00 | P.DS_ITS ---
DS: Providers Provider Date of Service: 01/29/21 Date of admission: 01/26/21 14:54 Primary care physician: Rafiq Zhong MD DS: Diagnosis Discharge Diagnosis (1) Abdominal pain: Status: Acute (2) Cholelithiasis: Status: Acute DS: Summary Hospital Course Hospital Course: Chief Complaint: Abdominal pain 60 year female with complex medical issues, including anxieyt, HTN that is controlled,? diabetes, diabetes gastroparesis with chronic abdominal pain and has an implatable neuro stimulator, she takes dialudid 2.5 mg 4 times a day, she presents with abdominal pain that is rather non-specicific severe, diffusely in the abdomen, 10/10, associated with nausea and vomitting and this has been on going for 3 days and seems to have intensifies today, she was supposed to go see her primary care doctor but pain was too much so she ended up here. Seen by Gen surgery, CT of abdomen show gallstone, no evidence of cholecystitis, no fever, WBC is normal .? Hospital course: 1/Abd pain, gallstones, clinically no acute cholecystitis. HIDA showed 1. The liver function appears normal. 2. No scintigraphic evidence of biliary/CBD obstruction. 3. Nonvisualized gallbladder. Her pain was treated with IV dilaudid and over the course of hospitalization has improved. She was evaluated by surgery and there is no indication for surgery. She is tolerating regular diet. She probably had acute on chronic abdominal pain from gastroparesis. She was also evaluated by GI (Dr. 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--relistor was not available for her in the hospital but co nsidered on outpatient basis 2/Diabetes--to continue home meds 3/ HTN--continue Losartan, Imdur, Metoprolol 4/ HLD--statin Time Spent with Patient Time attestation: Total time spent providing and/or coordinating discharge services: Discharge coordination time: Greater than 30 minutes Quality: Stroke Does the patient have a stroke diagnosis?: No Physical Exam Vital Signs: Vital Signs: Last Vital Signs Temp 97.4 F 01/29/21 07:21 Pulse 95 01/29/21 09:33 Resp 18 01/29/21 07:21 BP 136/76 01/29/21 09:33 Pulse Ox 96 01/29/21 07:21 Body Mass Index 46.3 Const: Other: General: AO X 3, no acute distress Resp: CTA bilateral CVS: S1,S2,RRR GI: +BS, NT, no distention Skin: No rash Neuro: motor grossly intact Psych: appropriate affect DS: Data Data Completed and Pending Labs on day of discharge: Laboratory Results - last 24 hr 01/28/21 01/28/21 01/29/21 15:27 20:06 07:26 POC Glucose 348 H 296 H 300 H Preliminary micro results at discharge 01/26/21 05:11 Blood Culture - Preliminary Blood - Venous No growth after 48 hours. 01/26/21 05:10 Blood Culture - Preliminary Blood - Venous No growth after 48 hours. Discharge Plan Discharge Anticipated Discharge Date/Time: 01/29/21 10:54 Patient Disposition: Home, Self-Care Discharge Diagnosis: acute on chronic abdominal pain, gastroparesis Referrals: Rafiq Zhong MD [Primary Care Provider] - 1 Week Discharge Medications: Continued alprazolam [Xanax] 1 mg Tablet 1 mg PO TID RF: 0 [id number]-dlqtjwidxqdbf-takn 50-325-40 mg Tablet 1 tab PO TID PRN (Reason: Headache) RF: 0 promethazine 25 mg Tablet 25 mg PO TID PRN (Reason: Nausea And Vomiting) RF: 0 atorvastatin 80 mg Tablet 80 mg PO BEDTIME RF: 0 isosorbide mononitrate 30 mg Tablet Extended Release 24 Hr 30 mg PO DAILY RF: 0 metoprolol succinate 100 mg Tablet Extended Release 24 Hr 100 mg PO BID RF: 0 aspirin 81 mg Tablet,Delayed Release (Dr/Ec) 81 mg PO DAILY RF: 0 amitriptyline 50 mg Tablet 50 mg PO BEDTIME RF: 0 Humulin R U-500 (Conc) Insulin 500 unit/mL Solution 200 unit SUBCUT BEDTIME RF: 0 Humulin R U-500 (Conc) Insulin 500 unit/mL Solution 250 unit SUBCUT QAM RF: 0 omeprazole 20 mg Capsule,Delayed Release(Dr/Ec) 20 mg PO BID RF: 0 topiramate 100 mg Tablet 100 mg PO BID RF: 0 losartan 100 mg Tablet 100 mg PO DAILY RF: 0 niacin 1,000 mg Tablet Extended Release 24 Hr 1,000 mg PO BEDTIME RF: 0 polyethylene glycol 3350 [Miralax] 17 gram/dose Powder 17 g PO DAILY PRN (Reason: Constipation) RF: 0 metoclopramide HCl 10 mg Tablet 10 mg PO Q6H PRN (Reason: Nausea And Vomiting) RF: 0 gabapentin 300 mg capsule 600 mg PO TID RF: 0 hydromorphone 4 mg tablet 2 mg PO QID RF: 0 Discharge Orders: Discharge Order (Routine); Ordered 01/29/21 Ordered By: Juan Rueda Diet: advance to usual diet and diabetic diet Activity on Discharge: As tolerated Stand Alone Forms: Patient Portal Discharge page Care Plan Goals: Pain control Health Concerns: Chronic abdominal pain Plan of Treatment: Continue your pain medication as before Assessment: as before
[2021-01-29 11:31] VITALS: BP 147/86; PULSE 98; RESP 18; TEMP 36.4; O2SAT 96
[2021-01-29 11:40] LABS: Glucose, Whole Blood 288 mg/dL (60-115)
--- NOTE | 2021-01-29 12:38 | MHC.CM.PN ---
PATIENT IS DISCHARGED HOME WITH RESUMPTION OF HER [employer] HOURS. SHE HAS A FOLLOW-UP GI CONSULT (TELE-VISIT) ON Monday 16 @ 1230. HER COMMUNITY NAVIGATOR, MATHEW IS AWARE OF PLAN AND WILL MAKE SURE SOMEONE IS THERE WITH PATIENT AT THIS DATE AND TIME . [facility]SPORT REQUEST FOR 1430 RN AND PATIENT AWARE OF PLAN
--- NOTE | 2021-02-01 11:28 | MHC.STROKE ---
01/29/21 1551 EMS NOTIFIED ED PATIENT WITH MENTAL STATUS CHANGES DIFFERENT FROM BASELINE. ARRIVED 1601. PATIENT WAS JUST DISCHARGED FROM MEDICAL FLOOR AT 1515. ED PROVIDER EXAMINED PATIENT SEE NOTE, NIHSS = 4.PATIENT HAS APHASIA AND LOC. CT HEAD REVEALED A SUB-ACUTE LEFT PARIETAL STROKE. UNKNOWN ONSET, ALTHOUGH AFTER REVIEWING THE PREVIOUS MEDICAL RECORD ON 01/27/21 IS WAS DOCUMENTED THAT SHE WAS REFUSING MEDS AND CERTAIN TREATMENTS, SHE DID NOT WANT TO EAT. ON 01/29/21 IS WAS DOCUMENTED THAT SHE WAS DROWSY BUT ONSET IS STILL UNKNOWN. SHE HAS A GASTRIC NEURO-STIMULATOR AND CANNOT HAVE AN MRI, CTA H/N WAS ORDERED BUT SHE IS TOO RESTLESS AND THE SCAN WOULD HAVE MOTION DEGRADING IMAGES. AT THIS TIME THE CTA IS ON HOLD. I DID DISCUSS THIS WITH DR. ULRICH, RN, AND DR ARGUETA. HER PROGNOSIS FOR A STROKE IN THIS LOCATION IS NOT GOOD FOR RECOVERING HER ABILITY TO COMMUNICATE AFFLICTIVELY, ACCORDING TO DR ARGUETA. I DID INITIATE STROKE EDUCATION WITH HER BROTHER MADELEINE AND HER BRANCH SERVICE LEADER. I REVIEWED THE STROKE EDUCATION BOOKLET AND POWER POINT SLIDES. WE DISCUSSED THE LOCATION OF THE STROKE AND THE CORRELATING SYMPTOMS. I ANSWERED ALL OF THEIR QUESTIONS. I WILL FOLLOW UP WITH THE DAUGHTER ASHLEY WELL. SHE HAS BEEN NPO SINCE ARRIVAL. I HAVE BEEN IN COMMUNICATION WITH SPEECH THERAPY DAILY. THE PATIENT WOULD NOT COOPERATE WITH ANY PART OF THE SWALLOW SCREEN. SHE WAS SPITTING OUT THE WATER. TODAY I WAS PRESENT DURING THE INITIAL SPEECH EVAL AND AGAIN THE PATIENT WAS SPITTING OUT THE APPLESAUCE AND WATER AND WOULD NOT COOPERATE. I DID COMMUNICATE THIS TO DR ULRICH. DR ARGUETA SAID THAT SHE SHOULD NOT HAVE DIFFICULTY SWALLOWING PROPERLY BUT SHE MAY NOT FOLLOW INSTRUCTIONS DUE TO HER STROKE LOCATION. IT WILL BE A DAY BY DAY EVALUATION.
== END 2021-01-29 15:19 | disposition home or self-care (01) ==
LOC: HO.ED 12:01 → HO.EDOVER 15:07 → HO.S3 23:22
PROVIDERS: Admitting Provider Internal Medicine; Emergency Provider Emergency Medicine; PCP Internal Medicine; Visit Provider Internal Medicine
DX: K80.20 Calculus of gallbladder without cholecystitis without obstruction (principal); K31.84 Gastroparesis; E11.43 Type 2 diabetes mellitus with diabetic autonomic (poly)neuropathy; E11.65 Type 2 diabetes mellitus with hyperglycemia; E78.5 Hyperlipidemia, unspecified; I10 Essential (primary) hypertension; G89.29 Other chronic pain; I25.10 Atherosclerotic heart disease of native coronary artery without angina pectoris; F41.9 Anxiety disorder, unspecified; Z20.822 Contact with and (suspected) exposure to COVID-19; Z88.0 Allergy status to penicillin; Z79.4 Long term (current) use of insulin; Z79.82 Long term (current) use of aspirin; Z79.899 Other long term (current) drug therapy
CPT/HCPCS: 36415; 74177; 76705; 78226; 80048; 80076; 82947; 83605; 83690; 83735; 84484; 85025; 87040; 87635; 93005; 96361; 96374; 96375; 96376; 99218; 99285; A9537; J1170; J1200; J1650; J2060; J2405; Q9967

== ENCOUNTER 2021-01-29 16:01 | Inpatient (IN) | payer MEDICAID, SELFPAY ==
--- NOTE | ~2021-01-29 | CT_ITS ---
EXAMINATION: CT HEAD WITHOUT CONTRAST CLINICAL INFORMATION: Confusion. Altered mental status. COMPARISON: 11/10/2020 TECHNIQUE: Contiguous axial imaging was performed from the skull base to vertex without intravenous contrast. This CT examination was performed using dose optimization techniques as appropriate, variously including the following: * Automated exposure control * Adjustment of mA and/or kV according to patient size (this includes techniques or standardized protocols for targeted exams where dose is matched to indication/reason for exam; i.e. extremities or head) Use of iterative reconstruction technique DLP: 602 mGy-cm. FINDINGS: There is diffuse low attenuation of the parenchyma with loss of roy to white matter differentiation involving the left occipital lobe. This is a change from 11/10/2020. There is no evidence of acute intracranial hemorrhage. No abnormal mass effect or midline shift is seen. No extra-axial fluid collections are identified. No hydrocephalus. No significant volume loss. The osseous structures and soft tissues are normal. The mastoid air cells and visualized portions of the paranasal sinuses are well aerated. CT/CT head/brain wo con IMPRESSION: Left ANIMAL ASSISTANT territory infarct. This is new from 11/10/2020 and likely subacute given the extent of hypoattenuation of the parenchyma. This critical result was discussed with CHRISTOFER Mendoza, by telephone at 01/29/2021 6:35 PM and it was ascertained that the content and urgency of the report was understood at the time of direct communication.
--- NOTE | ~2021-01-29 | XR_ITS ---
EXAMINATION: XR CHEST CLINICAL INFORMATION: Confusion COMPARISON: July 22, 2020 TECHNIQUE: AP portable view of the chest was obtained. FINDINGS: There is no evidence of acute parenchymal disease, pneumothorax, or pleural effusion. Heart normal size. No evidence of pulmonary edema. Right subclavian port catheter seen in place. XR/XR chest 1V IMPRESSION: No acute disease.
--- NOTE | ~2021-01-29 | CT_ITS ---
EXAMINATION: CT HEAD WITHOUT CONTRAST (STROKE PROTOCOL) CLINICAL INFORMATION: Stroke protocol. Acute left-sided facial drop COMPARISON: 01/29/2021 TECHNIQUE: Contiguous axial imaging was performed from the skull base to vertex without intravenous administration of contrast. This CT examination was performed using dose optimization techniques as appropriate, variously including the following: *Automated exposure control *Adjustment of mA and/or kV according to patient size (this includes techniques or standardized protocols for targeted exams where dose is matched to indication/reason for exam; i.e. extremities or head) *Use of iterative reconstruction technique DLP: 1363 mGy-cm FINDINGS: Patient motion limits assessment. Similar-appearing infarction involving the left FOUNDRY LABORER COREROOM territory. No evidence of hemorrhagic conversion. Similar minimal rightward shift of 3-4 mm. No new acute territorial infarction is identified. Ventricles are unchanged in their configuration and size. No acute intracranial hemorrhage or extra-axial fluid collection. The calvarium is intact. Limited views of the paranasal sinuses are unremarkable. Mastoid air cells are well aerated and middle ear cavities are clear. CT/CT head for stroke IMPRESSION: No significant interval change demonstrating left FOUNDR[employer] LABORER COREROOM territory infarct. No hemorrhagic conversion. Very subtle 3-4 mm rightward midline shift, unchanged. This critical result was discussed with Dr. Malone at 7:21 PM hours on 01/31/2021. It was ascertained that the content and urgency of the report was understood at the time of direct communication.
[2021-01-29 16:17] LABS: Glucose, Whole Blood 387 mg/dL (60-115)
--- NOTE | 2021-01-29 16:18 | ECG_ITS ---
Test Reason : AMS Blood Pressure : / mmHG Vent. Rate : 093 BPM Atrial Rate : 093 BPM P-R Int : 138 ms QRS Dur : 100 ms QT Int : 364 ms P-R-T Axes : 047 057 -13 degrees QTc Int : 452 ms Normal sinus rhythm Intra-ventricular conduction delay Nonspecific T wave abnormality Abnormal ECG When compared with ECG of 26-JAN-2021 04:45, Nonspecific T wave abnormality now evident in Lateral leads Referred By: Mahsa Rosales Electronically Signed By:DEAN ATKINS MD
[2021-01-29 16:19] VITALS: BP 162/73; PULSE 100; RESP 18; TEMP 36.8; O2SAT 98; BMI 34.9
--- NOTE | 2021-01-29 16:20 | ED_ITS ---
HPI - Altered Mental Status General Chief Complaint: Altered Mental Status Stated Complaint: CONFUSION, NAUSEA Time Seen by Provider: 01/29/21 16:10 Source: patient, EMS, RN notes reviewed and old records reviewed Mode of arrival: EMS Limitations: altered mental status History of Present Illness HPI narrative: 60 y/o wheelchair bound female with history of poorly controlled DM on insulin, gastroparesis s/p gastric pacemaker, s/p right LE BKA, HTN, depression/anxiety, cholelithiasis, chronic pain on chronic opiates who was just admitted to [facility] 01/26 for acute on chronic abdominal pain and discharged today presents right back to the ER with confusion. EMS was transporting her home from the hospital when she started having confusion and repeating the phrase where is she? Reportedly when she was picked up by EMS she was oriented x3, answering questions appropriately. Her glucose was 387 on arrival to the ER. MD complaint: confusion Onset (ago): minute(s) Related Data Home Medications Medication Instructions Recorded Confirmed alprazolam 1 mg tablet (Xanax) 1 mg PO TID 04/10/20 01/29/21 xgzhcoovrl-iiakjedttiyqw-pvckqobh 1 tab PO TID PRN 04/10/20 01/29/21 50 mg-325 mg-40 mg tablet promethazine 25 mg tablet 25 mg PO TID PRN 04/10/20 01/29/21 amitriptyline 50 mg tablet 50 mg PO BEDTIME 05/12/20 01/29/21 aspirin 81 mg tablet,delayed 81 mg PO DAILY 05/12/20 01/29/21 release atorvastatin 80 mg tablet 80 mg PO BEDTIME 05/12/20 01/29/21 insulin regular hum U-500 conc 500 200 unit SUBCUT BEDTIME 05/12/20 01/29/21 unit/mL subcutaneous soln (Humulin R U-500 (Concentrated) Insulin) insulin regular hum U-500 conc 500 250 unit SUBCUT QAM 05/12/20 01/29/21 unit/mL subcutaneous soln (Humulin R U-500 (Concentrated) Insulin) isosorbide mononitrate 30 mg 30 mg PO DAILY 05/12/20 01/29/21 tablet,extended release 24 hr losartan 100 mg tablet 100 mg PO DAILY 05/12/20 01/29/21 metoclopramide HCl 10 mg tablet 10 mg PO Q6H PRN 05/12/20 01/29/21 metoprolol succinate 100 mg 100 mg PO BID 05/12/20 01/29/21 tablet,extended release 24 hr niacin 1,000 mg tablet,extended 1,000 mg PO BEDTIME 05/12/20 01/29/21 release 24 hr omeprazole 20 mg capsule,delayed 20 mg PO BID 05/12/20 01/29/21 release polyethylene glycol 3350 17 17 g PO DAILY PRN 05/12/20 01/29/21 gram/dose oral powder (Miralax) topiramate 100 mg tablet 100 mg PO BID 05/12/20 01/29/21 gabapentin 300 mg capsule 600 mg PO TID 01/26/21 01/29/21 hydromorphone 4 mg tablet 2 mg PO QID 01/26/21 01/29/21 Allergies Allergy/AdvReac Type Severity Reaction Status Date / Time Penicillins [PENICILLINS] Allergy Mild HIVES Verified 05/25/20 04:33 clarithromycin [From Biaxin] Allergy Unknown HIVES Verified 05/25/20 04:33 penicillin V Allergy Unknown rash, Verified 05/25/20 04:33 throat tight bioxin Allergy Unknown Unknown Uncoded 05/25/20 04:33 penicillin Allergy Unknown Unknown Uncoded 05/25/20 04:33 Review of Systems Review of Systems: Yes Unobtainable due to mental status PMFSH Past Medical History Medical History Anxiety Below knee amputation CAD (coronary artery disease) Chronic pain syndrome Depression Gastroparesis History of gastrostomy tube placement History of peptic ulcer disease HTN (hypertension) IDDM (insulin dependent diabetes mellitus) Liver lesion Myocardial infarction Wheelchair bound Surgical History History of back surgery Hx of BKA Family History Family History Father Coronary arteriosclerosis Social History Social History Household Members: Family Housing: House Are you a primary progressive care nurse to a significant other at home: No Do you presently have visiting nurse or other home services: Yes Alcohol intake: never Patient Tobacco Use Status: Never used Tobacco Second Hand Smoke Exposure: No Advance Directives: Yes Advance Directives on File: Yes Advance Directives Date on File: 05/12/20 Patient : No service: No Current occupational status: unemployed and disabled Physical Exam Vital Signs: Vital Signs: Last Vital Signs Temp 97.8 F 01/29/21 20:52 Pulse 90 01/29/21 20:52 Resp 16 01/29/21 20:52 BP 136/70 01/29/21 20:52 Pulse Ox 96 01/29/21 20:52 Body Mass Index 34.9 Appearance: Middle aged female laying in bed repeating phrase, where is she? Restless, pale. appears older than stated age Eyes: Pupils equal, round and reactive to light. ENT: Pharynx normal. Neck: Normal inspection. Neck supple. CVS: Normal heart rate and rhythm. Pulses normal. Respiratory: No respiratory distress. Breath sounds normal. Abdomen: Obese Soft with mild diffuse tenderness, palpable mass LUQ which is consistent with gastric pacer. +BS x4 Skin: Skin warm and dry. Normal skin color. Normal skin turgor. No rashes. Extremities: No lower extremity edema. s/p right BKA Neuro: Oriented X 1, does not answer questions appropriately. moves all extremities but only intermittently follows commands. Course Course Course Narrative: 60 y/o female with multiple medical problems including poorly controlled diabetes with gastroparesis and gastric pacemaker, chronic abdominal pain on chronic opiates who presents to the ER immediately after discharge after she was found to be altered and confused on the way home in the ambulance. She is moving all extremities but not answering questions appropriately she is repeating phrases. Nonfocal neuro exam but difficuly to fully assess given she does not follow commands or answer questions appropriately. According to the physician who discharged her this morning she was answering questions appropriately. Will get metabolic workup and CT scan of her head. She was getting IV Dilaudid while inpatient and appears to be on Xanax and gabapentin chronically. Could be due to polypharmacy or hyperactive delirium in the setting of inpatient admission. Reevaluation(s) Reevaluation #1: Patient is extremely difficult stick. Multiple nurses attempting IV access with only a 24 gauge IV placed in the hand. Phlebotomy up to attempt lab work again. Reevaluation #2: Received critical result from [facility] as patient has a significant subacute left-sided posterior circulation stroke which is new from [place]. Unable to get a complete neurological exam on her. Not a tPA candidate given unknown timeline. Will plan for admission for further management and workup of her new stroke. A left EJ was successfully placed by Dr. Mason and labs were obtained. Reevaluation #3: Patient became combative and pulled out her 24 gauge peripheral IV as well as her left EJ. Will attempt PIV again. Additional Reevaluation(s): Peripheral IV placed in the hand by nursing. Labs largely unremarkable. UA is negative for infection. Will plan for admission for subacute stroke workup. MDM - Altered Mental Status Differential Diagnosis Differential diagnosis: Likely altered mental status, delirium, dementia, encephalopathy, hypoglycemia, hyponatremia, overdose polysubstance, renal failure, subarachnoid hemorrhage, sepsis and seizures Medical Records Attestation: I reviewed the patient's medical records. Lab Data Attestation: I reviewed the patient's lab results. Result diagrams: 01/29/21 21:01 01/29/21 19:12 Labs: Lab Results 01/29/21 01/29/21 01/29/21 Range/Units 16:12 18:19 18:38 WBC (4.8-10.8) X10*3/uL RBC (4.20-5.50) X10*6/uL Hgb (12.0-16.0) g/dl Hct (37.0-47.0) % MCV (80.0-98.0) fL MCH (27.0-33.0) pg MCHC (31.0-35.0) g/dl RDW (11.0-16.0) % Plt Count (160-400) X10*3/uL MPV (9.4-12.3) fL Immature Gran % (Auto) (0.0-0.4) % Neut % (Auto) (45-73) % Lymph % (Auto) (20-40) % [place] % (Auto) (2-11) % Eos % (Auto) (0-4) % Baso % (Auto) (0-2) % Lymph # (Auto) (1.2-4.9) X10*3/uL [place] # (Auto) (0.1-1.2) X10*3/uL Eos # (Auto) (0.0-0.4) X10*3/uL Baso # (Auto) (0.0-0.2) X10*3/uL Abs Immat Gran (auto) (0.00-0.03) X10*3/uL Absolute Neuts (auto) (2.0-8.3) x10*3/uL Absolute Nucleated RBC (0.0-0.012) X10*3/uL Nucleated RBC % (auto) (0.0-0.2) /100WBC PT (9.9-13.0) SEC INR (0.9-1.1) APTT (24.1-38.0) SEC Sodium (135-145) mmol/L Potassium (3.3-5.1) mmol/L Chloride (96-108) mmol/L Carbon Dioxide (22-29) mmol/L Anion Gap (12-20) BUN (9-16) mg/dL Creatinine (0.5-1.4) mg/dL Estim Creat Clear Calc Estimated GFR POC Glucose 387 H* 397 H* (60-115) mg/dL Random Glucose (60-115) mg/dL Lactic Acid (0.5-2.0) mmol/L Calcium (8.4-10.2) mg/dL Magnesium (1.6-2.6) mg/dL Total Bilirubin (0.0-1.0) mg/dL Direct Bilirubin (0.0-0.5) mg/dL AST (5-31) U/L ALT (0-31) U/L Alkaline Phosphatase (39-117) U/L Ammonia (13-55) umol/L Troponin I High Sens (<3.5-17.0) ng/L Total Protein (6.5-8.0) g/dL Albumin (3.5-5.0) g/dL Lipase (8-78) U/L Urine Color Urine Appearance Urine pH (5.0-8.0) Ur Specific [place] (1.005-1.025) Urine Protein (NEG-TRACE) MG/DL Urine Glucose (UA) (NEG) MG/DL Urine Ketones (NEG) MG/DL Urine Blood (NEG) Urine Nitrite (NEG) Ur Leukocyte Esterase (NEG) Urine RBC (0) /HPF Urine WBC (0-4) /HPF Ur Squamous Epith Cells /LPF Talc Crystals /LPF Urine Bacteria /LPF Urine Mucus /LPF Urine Opiates Screen (Not Detect) Urine Fentanyl Screen (Not Detect) Ur Barbiturates Screen (Not Detect) Ur Phencyclidine Scrn (Not Detect) Ur Amphetamines Screen (Not Detect) U Benzodiazepines Scrn (Not Detect) Urine Cocaine Screen (Not Detect) U Marijuana (THC) Screen (Not Detect) COVID-19 (TA) Negative (Negative) COVID-19 Clin Com See Note 01/29/21 01/29/21 01/29/21 Range/Units 19:12 19:12 19:12 WBC (4.8-10.8) X10*3/uL RBC (4.20-5.50) X10*6/uL Hgb (12.0-16.0) g/dl Hct (37.0-47.0) % MCV (80.0-98.0) fL MCH (27.0-33.0) pg MCHC (31.0-35.0) g/dl RDW (11.0-16.0) % Plt Count (160-400) X10*3/uL MPV (9.4-12.3) fL Immature Gran % (Auto) (0.0-0.4) % Neut % (Auto) (45-73) % Lymph % (Auto) (20-40) % [place] % (Auto) (2-11) % Eos % (Auto) (0-4) % Baso % (Auto) (0-2) % Lymph # (Auto) (1.2-4.9) X10*3/uL [place] # (Auto) (0.1-1.2) X10*3/uL Eos # (Auto) (0.0-0.4) X10*3/uL Baso # (Auto) (0.0-0.2) X10*3/uL Abs Immat Gran (auto) (0.00-0.03) X10*3/uL Absolute Neuts (auto) (2.0-8.3) x10*3/uL Absolute Nucleated RBC (0.0-0.012) X10*3/uL Nucleated RBC % (auto) (0.0-0.2) /100WBC PT (9.9-13.0) SEC INR (0.9-1.1) APTT (24.1-38.0) SEC Sodium 135 (135-145) mmol/L Potassium 3.7 D (3.3-5.1) mmol/L Chloride 104 (96-108) mmol/L Carbon Dioxide 20 L (22-29) mmol/L Anion Gap 15 (12-20) BUN 15 D (9-16) mg/dL Creatinine 1.38 (0.5-1.4) mg/dL Estim Creat Clear Calc 49.5 Estimated GFR 39 POC Glucose (60-115) mg/dL Random Glucose 383 H* (60-115) mg/dL Lactic Acid 1.2 (0.5-2.0) mmol/L Calcium 9.1 (8.4-10.2) mg/dL Magnesium 1.7 (1.6-2.6) mg/dL Total Bilirubin 0.4 (0.0-1.0) mg/dL Direct Bilirubin < 0.2 (0.0-0.5) mg/dL AST 18 (5-31) U/L ALT 13 (0-31) U/L Alkaline Phosphatase 94 D (39-117) U/L Ammonia (13-55) umol/L Troponin I High Sens 7.5 D (<3.5-17.0) ng/L Total Protein 6.5 (6.5-8.0) g/dL Albumin 3.7 (3.5-5.0) g/dL Lipase 12 (8-78) U/L Urine Color Urine Appearance Urine pH (5.0-8.0) Ur Specific [place] (1.005-1.025) Urine Protein (NEG-TRACE) MG/DL Urine Glucose (UA) (NEG) MG/DL Urine Ketones (NEG) MG/DL Urine Blood (NEG) Urine Nitrite (NEG) Ur Leukocyte Esterase (NEG) Urine RBC (0) /HPF Urine WBC (0-4) /HPF Ur Squamous Epith Cells /LPF Talc Crystals /LPF Urine Bacteria /LPF Urine Mucus /LPF Urine Opiates Screen (Not Detect) Urine Fentanyl Screen (Not Detect) Ur Barbiturates Screen (Not Detect) Ur Phencyclidine Scrn (Not Detect) Ur Amphetamines Screen (Not Detect) U Benzodiazepines Scrn (Not Detect) Urine Cocaine Screen (Not Detect) U Marijuana (THC) Screen (Not Detect) COVID-19 (TA) (Negative) COVID-19 Clin Com 01/29/21 01/29/21 01/29/21 Range/Units 19:12 19:12 19:36 WBC (4.8-10.8) X10*3/uL RBC (4.20-5.50) X10*6/uL Hgb (12.0-16.0) g/dl Hct (37.0-47.0) % MCV (80.0-98.0) fL MCH (27.0-33.0) pg MCHC (31.0-35.0) g/dl RDW (11.0-16.0) % Plt Count (160-400) X10*3/uL MPV (9.4-12.3) fL Immature Gran % (Auto) (0.0-0.4) % Neut % (Auto) (45-73) % Lymph % (Auto) (20-40) % [place] % (Auto) (2-11) % Eos % (Auto) (0-4) % Baso % (Auto) (0-2) % Lymph # (Auto) (1.2-4.9) X10*3/uL [place] # (Auto) (0.1-1.2) X10*3/uL Eos # (Auto) (0.0-0.4) X10*3/uL Baso # (Auto) (0.0-0.2) X10*3/uL Abs Immat Gran (auto) (0.00-0.03) X10*3/uL Absolute Neuts (auto) (2.0-8.3) x10*3/uL Absolute Nucleated RBC (0.0-0.012) X10*3/uL Nucleated RBC % (auto) (0.0-0.2) /100WBC PT 12.3 (9.9-13.0) SEC INR 1.1 (0.9-1.1) APTT 31.3 (24.1-38.0) SEC Sodium (135-145) mmol/L Potassium (3.3-5.1) mmol/L Chloride (96-108) mmol/L Carbon Dioxide (22-29) mmol/L Anion Gap (12-20) BUN (9-16) mg/dL Creatinine (0.5-1.4) mg/dL Estim Creat Clear Calc Estimated GFR POC Glucose 307 H (60-115) mg/dL Random Glucose (60-115) mg/dL Lactic Acid (0.5-2.0) mmol/L Calcium (8.4-10.2) mg/dL Magnesium (1.6-2.6) mg/dL Total Bilirubin (0.0-1.0) mg/dL Direct Bilirubin (0.0-0.5) mg/dL AST (5-31) U/L ALT (0-31) U/L Alkaline Phosphatase (39-117) U/L Ammonia 19 (13-55) umol/L Troponin I High Sens (<3.5-17.0) ng/L Total Protein (6.5-8.0) g/dL Albumin (3.5-5.0) g/dL Lipase (8-78) U/L Urine Color Urine Appearance Urine pH (5.0-8.0) Ur Specific [place] (1.005-1.025) Urine Protein (NEG-TRACE) MG/DL Urine Glucose (UA) (NEG) MG/DL Urine Ketones (NEG) MG/DL Urine Blood (NEG) Urine Nitrite (NEG) Ur Leukocyte Esterase (NEG) Urine RBC (0) /HPF Urine WBC (0-4) /HPF Ur Squamous Epith Cells /LPF Talc Crystals /LPF Urine Bacteria /LPF Urine Mucus /LPF Urine Opiates Screen (Not Detect) Urine Fentanyl Screen (Not Detect) Ur Barbiturates Screen (Not Detect) Ur Phencyclidine Scrn (Not Detect) Ur Amphetamines Screen (Not Detect) U Benzodiazepines Scrn (Not Detect) Urine Cocaine Screen (Not Detect) U Marijuana (THC) Screen (Not Detect) COVID-19 (TA) (Negative) COVID-19 Clin Com 01/29/21 01/29/21 01/29/21 Range/Units 20:50 21:01 21:01 WBC 11.5 H (4.8-10.8) X10*3/uL RBC 4.20 (4.20-5.50) X10*6/uL Hgb 13.3 (12.0-16.0) g/dl Hct 38.3 (37.0-47.0) % MCV 91.2 (80.0-98.0) fL MCH 31.7 (27.0-33.0) pg MCHC 34.7 (31.0-35.0) g/dl RDW 12.8 (11.0-16.0) % Plt Count 224 (160-400) X10*3/uL MPV 10.3 (9.4-12.3) fL Immature Gran % (Auto) 0.3 (0.0-0.4) % Neut % (Auto) 63.5 (45-73) % Lymph % (Auto) 24.3 (20-40) % [place] % (Auto) 10.6 (2-11) % Eos % (Auto) 1.0 (0-4) % Baso % (Auto) 0.3 (0-2) % Lymph # (Auto) 2.8 (1.2-4.9) X10*3/uL [place] # (Auto) 1.2 (0.1-1.2) X10*3/uL Eos # (Auto) 0.1 (0.0-0.4) X10*3/uL Baso # (Auto) 0.0 (0.0-0.2) X10*3/uL Abs Immat Gran (auto) 0.03 (0.00-0.03) X10*3/uL Absolute Neuts (auto) 7.3 (2.0-8.3) x10*3/uL Absolute Nucleated RBC 0.000 (0.0-0.012) X10*3/uL Nucleated RBC % (auto) 0.0 (0.0-0.2) /100WBC PT (9.9-13.0) SEC INR (0.9-1.1) APTT (24.1-38.0) SEC Sodium (135-145) mmol/L Potassium (3.3-5.1) mmol/L Chloride (96-108) mmol/L Carbon Dioxide (22-29) mmol/L Anion Gap (12-20) BUN (9-16) mg/dL Creatinine (0.5-1.4) mg/dL Estim Creat Clear Calc Estimated GFR POC Glucose 237 H (60-115) mg/dL Random Glucose (60-115) mg/dL Lactic Acid (0.5-2.0) mmol/L Calcium (8.4-10.2) mg/dL Magnesium (1.6-2.6) mg/dL Total Bilirubin (0.0-1.0) mg/dL Direct Bilirubin (0.0-0.5) mg/dL AST (5-31) U/L ALT (0-31) U/L Alkaline Phosphatase (39-117) U/L Ammonia (13-55) umol/L Troponin I High Sens (<3.5-17.0) ng/L Total Protein (6.5-8.0) g/dL Albumin (3.5-5.0) g/dL Lipase (8-78) U/L Urine Color YELLOW Urine Appearance HAZY Urine pH 6.0 (5.0-8.0) Ur Specific [place] 1.010 (1.005-1.025) Urine Protein NEG (NEG-TRACE) MG/DL Urine Glucose (UA) NEG (NEG) MG/DL Urine Ketones NEG (NEG) MG/DL Urine Blood TRACE (NEG) Urine Nitrite NEG (NEG) Ur Leukocyte Esterase NEG (NEG) Urine RBC 0-2 (0) /HPF Urine WBC 0 (0-4) /HPF Ur Squamous Epith Cells 1+ /LPF Talc Crystals TRACE /LPF Urine Bacteria TRACE /LPF Urine Mucus TRACE /LPF Urine Opiates Screen (Not Detect) Urine Fentanyl Screen (Not Detect) Ur Barbiturates Screen (Not Detect) Ur Phencyclidine Scrn (Not Detect) Ur Amphetamines Screen (Not Detect) U Benzodiazepines Scrn (Not Detect) Urine Cocaine Screen (Not Detect) U Marijuana (THC) Screen (Not Detect) COVID-19 (TA) (Negative) COVID-19 Clin Com 01/29/21 Range/Units 21:01 WBC (4.8-10.8) X10*3/uL RBC (4.20-5.50) X10*6/uL Hgb (12.0-16.0) g/dl Hct (37.0-47.0) % MCV (80.0-98.0) fL MCH (27.0-33.0) pg MCHC (31.0-35.0) g/dl RDW (11.0-16.0) % Plt Count (160-400) X10*3/uL MPV (9.4-12.3) fL Immature Gran % (Auto) (0.0-0.4) % Neut % (Auto) (45-73) % Lymph % (Auto) (20-40) % [place] % (Auto) (2-11) % Eos % (Auto) (0-4) % Baso % (Auto) (0-2) % Lymph # (Auto) (1.2-4.9) X10*3/uL [place] # (Auto) (0.1-1.2) X10*3/uL Eos # (Auto) (0.0-0.4) X10*3/uL Baso # (Auto) (0.0-0.2) X10*3/uL Abs Immat Gran (auto) (0.00-0.03) X10*3/uL Absolute Neuts (auto) (2.0-8.3) x10*3/uL Absolute Nucleated RBC (0.0-0.012) X10*3/uL Nucleated RBC % (auto) (0.0-0.2) /100WBC PT (9.9-13.0) SEC INR (0.9-1.1) APTT (24.1-38.0) SEC Sodium (135-145) mmol/L Potassium (3.3-5.1) mmol/L Chloride (96-108) mmol/L Carbon Dioxide (22-29) mmol/L Anion Gap (12-20) BUN (9-16) mg/dL Creatinine (0.5-1.4) mg/dL Estim Creat Clear Calc Estimated GFR POC Glucose (60-115) mg/dL Random Glucose (60-115) mg/dL Lactic Acid (0.5-2.0) mmol/L Calcium (8.4-10.2) mg/dL Magnesium (1.6-2.6) mg/dL Total Bilirubin (0.0-1.0) mg/dL Direct Bilirubin (0.0-0.5) mg/dL AST (5-31) U/L ALT (0-31) U/L Alkaline Phosphatase (39-117) U/L Ammonia (13-55) umol/L Troponin I High Sens (<3.5-17.0) ng/L Total Protein (6.5-8.0) g/dL Albumin (3.5-5.0) g/dL Lipase (8-78) U/L Urine Color Urine Appearance Urine pH (5.0-8.0) Ur Specific [place] (1.005-1.025) Urine Protein (NEG-TRACE) MG/DL Urine Glucose (UA) (NEG) MG/DL Urine Ketones (NEG) MG/DL Urine Blood (NEG) Urine Nitrite (NEG) Ur Leukocyte Esterase (NEG) Urine RBC (0) /HPF Urine WBC (0-4) /HPF Ur Squamous Epith Cells /LPF Talc Crystals /LPF Urine Bacteria /LPF Urine Mucus /LPF Urine Opiates Screen POSITIVE H (Not Detect) Urine Fentanyl Screen Not Detected (Not Detect) Ur Barbiturates Screen POSITIVE H (Not Detect) Ur Phencyclidine Scrn Not Detected (Not Detect) Ur Amphetamines Screen Not Detected (Not Detect) U Benzodiazepines Scrn POSITIVE H (Not Detect) Urine Cocaine Screen Not Detected (Not Detect) U Marijuana (THC) Screen Not Detected (Not Detect) COVID-19 (TA) (Negative) COVID-19 Clin Com ECG Data ECG #1: Attestation: I personally reviewed and interpreted this ECG as follows: ECG interpretation date: 01/29/21 Prior ECG tracings: available for review Interpretation: normal sinus rhythm, HR 93 bpm, t-wave inversions in leads III, aVF which are old, normal DE interval. No ST segment elevations. Critical Care Time Critical Care Time Critical Care Time: Yes Total Critical Care Time: 38 Attestation: I have personally provided critical care time exclusive of time spent on separately billable procedures. Time includes review of lab data, radiology results, discussion with consultants, and monitoring for potential decompensation. Intervention performed as documented. Discharge Plan Discharge Clinical Impression: CVA (cerebral vascular accident), Encephalopathy acute, Hyperglycemia Patient Disposition: Admitted As Inpatient Prescriptions: No Action alprazolam [Xanax] 1 mg Tablet 1 mg PO TID RF: 0 pscdrmzzmd-bduheikirmygx-ssoy 50-325-40 mg Tablet 1 tab PO TID PRN (Reason: Headache) RF: 0 promethazine 25 mg Tablet 25 mg PO TID PRN (Reason: Nausea And Vomiting) RF: 0 atorvastatin 80 mg Tablet 80 mg PO BEDTIME RF: 0 isosorbide mononitrate 30 mg Tablet Extended Release 24 Hr 30 mg PO DAILY RF: 0 metoprolol succinate 100 mg Tablet Extended Release 24 Hr 100 mg PO BID RF: 0 aspirin 81 mg Tablet,Delayed Release (Dr/Ec) 81 mg PO DAILY RF: 0 amitriptyline 50 mg Tablet 50 mg PO BEDTIME RF: 0 Humulin R U-500 (Conc) Insulin 500 unit/mL Solution 200 unit SUBCUT BEDTIME RF: 0 Humulin R U-500 (Conc) Insulin 500 unit/mL Solution 250 unit SUBCUT QAM RF: 0 omeprazole 20 mg Capsule,Delayed Release(Dr/Ec) 20 mg PO BID RF: 0 topiramate 100 mg Tablet 100 mg PO BID RF: 0 losartan 100 mg Tablet 100 mg PO DAILY RF: 0 niacin 1,000 mg Tablet Extended Release 24 Hr 1,000 mg PO BEDTIME RF: 0 polyethylene glycol 3350 [Miralax] 17 gram/dose Powder 17 g PO DAILY PRN (Reason: Constipation) RF: 0 metoclopramide HCl 10 mg Tablet 10 mg PO Q6H PRN (Reason: Nausea And Vomiting) RF: 0 gabapentin 300 mg capsule 600 mg PO TID RF: 0 hydromorphone 4 mg tablet 2 mg PO QID RF: 0
--- NOTE | 2021-01-29 17:35 | PC.NURSE ---
this rn attempted multiple ivs with ultrasound guidance and without with no success. pt remains awake and responsive but remains pleasantly confused pt remians in sinus rythym in lead 2.
[2021-01-29 18:25] LABS: Glucose, Whole Blood 397 mg/dL (60-115)
[2021-01-29] MEDS: 0.9 % Sodium Chloride 1,000 ML 999 ML IVCONT (18:35)
[2021-01-29] MEDS: Insulin Lispro 100 UNIT/ML 3 ML VIAL 10 UNIT SUBCUT (18:36)
[2021-01-29 18:43] VITALS: BP 140/67; PULSE 88; RESP 16; O2SAT 96
--- NOTE | 2021-01-29 18:44 | PC.NURSE ---
24 ga iv est r hand phlebotomy called for lab draw pt remains awake but confused, pt laughing at jokes but when asked about events leading up to her current er visit she just repeats im being tested pt speaks in even tones and maintians appropriate eye contact. pt remains nsr in lead 2 resps nonlabpred.
[2021-01-29 19:01] LABS: COVID-19 Test Negative (Negative); IDNOW Serial# 9DD0AD1C
[2021-01-29 19:35] LABS: Ammonia 19 umol/L (13-55); Lactic Acid 1.2 mmol/L (0.5-2.0)
[2021-01-29 19:40] LABS: Glucose, Whole Blood 307 mg/dL (60-115)
[2021-01-29 19:40] LABS: Troponin-I High Sensitivity 7.5 ng/L (<3.5-17.0)
[2021-01-29 19:43] LABS: Alanine Aminotransferase 13 U/L (0-31); Albumin Level 3.7 g/dL (3.5-5.0); Alkaline Phosphatase 94 U/L (39-117); Anion Gap 15 (12-20); Aspartate Amino Transferase 18 U/L (5-31); Bilirubin Direct < 0.2 mg/dL (0.0-0.5); Bilirubin Total 0.4 mg/dL (0.0-1.0); Blood Urea Nitrogen 15 mg/dL (9-16); Calcium 9.1 mg/dL (8.4-10.2); Carbon Dioxide 20 mmol/L (22-29); Chloride 104 mmol/L (96-108); Creatinine Clr Calc Pharmacy 49.5; Estimated Glomerular Filt Rate 39; Glucose Random 383 mg/dL (60-115); Lipase 12 U/L (8-78); Magnesium 1.7 mg/dL (1.6-2.6); Potassium 3.7 mmol/L (3.3-5.1); Sodium 135 mmol/L (135-145); Total Protein 6.5 g/dL (6.5-8.0)
[2021-01-29 19:59] LABS: INTERNATIONAL NORM RATIO 1.1 (0.9-1.1); Prothrombin Time 12.3 SEC (9.9-13.0)
[2021-01-29 20:02] LABS: Partial Thromboplastin Time 31.3 SEC (24.1-38.0)
[2021-01-29 20:52] VITALS: BP 136/70; PULSE 90; RESP 16; TEMP 36.6; O2SAT 96
--- NOTE | 2021-01-29 20:53 | PC.NURSE ---
PATIENT IS CONFUSED PATIENT HAS TAKEN OFF HER HOSPITAL ATTIRE, CARDIAC LEADS, PATIENT HAS REMOVED IVS BOTH IN THE WRIST AND ONE REMOVED THAT THE MD PLACED IN THE EJ. PATIENT REMOVING BOTH, PROVIDER IS AWARE. AND STRAIGHT CATH ATTEMPTED WITH URINE SAMPLE WAS ABLE TO BE OBTAINED. PATIENT CONTINUES TO GRAB AND PULL. PROVIDER IS AWARE THAT PATIENT IS IN NEED OF IV ACCESS.
--- NOTE | 2021-01-29 20:56 | PHA.MEDREC ---
Pharmacy Consult ? Medication Reconciliation Pharmacy has completed the medication reconciliation. Patient was just here. Medication list verified with daughter
[2021-01-29 20:57] LABS: Glucose, Whole Blood 237 mg/dL (60-115)
[2021-01-29 21:06] LABS: Basophils Percent Auto 0.3 % (0-2); Eosinophils Absolute Auto 0.1 X10*3/uL (0.0-0.4); Hematocrit 38.3 % (37.0-47.0); Hemoglobin 13.3 g/dl (12.0-16.0); Imm Gran Abs Auto 0.03 X10*3/uL (0.00-0.03); Imm Gran Pct Auto 0.3 % (0.0-0.4); Lymphocytes Absolute Auto 2.8 X10*3/uL (1.2-4.9); Lymphocytes Percent Auto 24.3 % (20-40); Mean Corpuscular HGB Conc 34.7 g/dl (31.0-35.0); Mean Corpuscular Hemoglobin 31.7 pg (27.0-33.0); Mean Corpuscular Volume 91.2 fL (80.0-98.0); Mean Platelet Volume 10.3 fL (9.4-12.3); Monocytes Absolute Auto 1.2 X10*3/uL (0.1-1.2); Monocytes Percent Auto 10.6 % (2-11); Neutrophils Absolute Auto 7.3 x10*3/uL (2.0-8.3); Neutrophils Percent Auto 63.5 % (45-73); Platelet Count 224 X10*3/uL (160-400); Red Cell Distribution Width 12.8 % (11.0-16.0); White Blood Count 11.5 X10*3/uL (4.8-10.8)
[2021-01-29 21:07] LABS: MANUAL DIFF FLAG NO
--- NOTE | 2021-01-29 21:08 | PC.NURSE ---
PATIENT WAS CHANGE INTO HOSPITAL ATTIRE AND BEDDING WAS CHANGE .
[2021-01-29 21:10] LABS: Appearance Urine HAZY; Color Urine YELLOW; Glucose Urine UA NEG (NEG); Leukocyte Esterase Urine NEG (NEG); Nitrite Urine NEG (NEG); UACC Culture Trigger NO; Urine Blood TRACE (NEG); Urine Ketones NEG (NEG); Urine Protein NEG (NEG-TRACE)
[2021-01-29 21:17] LABS: Mucus Urine TRACE /LPF; Squamous Epithelial Cell Urine 1+ /LPF
[2021-01-29 21:18] LABS: Bacteria Urine TRACE /LPF; RBC Urine 0-2 /HPF (0); Urine Talc Crystals TRACE /LPF; WBC Urine 0 /HPF (0-4)
[2021-01-29 21:29] LABS: Amphetamine Screen Urine Not Detected (Not Detect); Barbiturates, Urine POSITIVE (Not Detect); Benzodiazepines Screen Urine POSITIVE (Not Detect); Cannabinoid Screen Urine Not Detected (Not Detect); Cocaine Screen Urine Not Detected (Not Detect); Fentanyl, urine Not Detected (Not Detect); Opiate Screen Urine POSITIVE (Not Detect); Phencyclidine Screen Urine Not Detected (Not Detect)
[2021-01-29 22:35] VITALS: BP 140/71; PULSE 83; RESP 16; O2SAT 96
--- NOTE | 2021-01-29 23:09 | PM.IMHP ---
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 For the patient was taken home by the EMS patient was noted to be confused and not making sense; hence border back to the hospital for further evaluation. At the time of my interview patient is alert and awake, lying comfortably in the bed, follows simple commands, but confused and repeating words; History was limited. spoke to patient's daughter renee-who mentions that she has a healthcare proxy pain. Mentioned that when she spoke to her in the morning patient was noted to be confused; and does another the patient went home. Mentioned she will come in the morning to see her. Review of all other systems is limited as the patient is confused. ER course: Per ER team patient on presentation is moving all her extremities equally; CT head showed subacute left COMMERCIAL HELICOPTER PILOT territory infarct; on labs noted a mild hyperglycemia CC: The patient was noted to be confused-negative; chest x-ray showed no acute findings. Given aspirin. Admitted for further management. [facility] Medical History Anxiety Below knee amputation CAD (coronary artery disease) Chronic pain syndrome Depression Gastroparesis History of gastrostomy tube placement History of peptic ulcer disease HTN (hypertension) IDDM (insulin dependent diabetes mellitus) Liver lesion Myocardial infarction Wheelchair bound Family History Father Coronary arteriosclerosis Surgical History History of back surgery Hx of BKA Social History Household Members: Family Housing: House Are you a primary child care centre director to a significant other at home: No Do you presently have visiting nurse or other home services: Yes Alcohol intake: never Patient Tobacco Use Status: Never used Tobacco Second Hand Smoke Exposure: No Advance Directives: Yes Advance Directives on File: Yes Advance Directives Date on File: 05/12/20 Patient : No service: No Current occupational status: unemployed and disabled Meds Allergies Allergy/AdvReac Type Severity Reaction Status Date / Time Penicillins [PENICILLINS] Allergy Mild HIVES Verified 05/25/20 04:33 clarithromycin [From Biaxin] Allergy Unknown HIVES Verified 05/25/20 04:33 penicillin V Allergy Unknown rash, Verified 05/25/20 04:33 throat tight bioxin Allergy Unknown Unknown Uncoded 05/25/20 04:33 penicillin Allergy Unknown Unknown Uncoded 05/25/20 04:33 Active Medications: Current Medications Acetaminophen (Acetaminophen 325 Mg Tablet) 650 mg PO Q6H PRN PRN Reason: Pain, Mild (Pain Scale 1-3) Alprazolam (Alprazolam 0.5 Mg Tablet) 1 mg PO TID [facility] Amitriptyline HCl (Amitriptyline Hcl 50 Mg Tablet) 50 mg PO BEDTIME [facility] Aspirin (Aspirin Enteric Coated 81 Mg Tablet.) 81 mg PO DAILY [facility] Atorvastatin Calcium (Atorvastatin Calcium 80 Mg Tablet) 80 mg PO BEDTIME [facility] Dextrose (Dextrose 50 % 25 Gm/50 Ml Vial) 25 gm IVPUSH Q15M PRN; Protocol PRN Reason: per Hypoglycemia Standing Ord. Gabapentin (Gabapentin 300 Mg Capsule) 600 mg PO TID [facility] Glucose (Glucose Gel 15 Gm Gel..Gram.) 15 gm PO Q15M PRN; Protocol PRN Reason: per Hypoglycemia Standing Ord. Insulin Human Lispro (Insulin Lispro 100 Unit/Ml 3 Ml Vial) 0 unit SUBCUT QIDACHS [facility]; Protocol Isosorbide Mononitrate (Isosorbide Mononitrate 30 Mg Tab.Er.24h) 30 mg PO DAILY [facility]; Protocol Metoprolol Succinate (Metoprolol Succinate Er 100 Mg Tab.Er.24h) 100 mg PO BID [facility]; Protocol Niacin (Niacin Er 250 Mg Tablet.Er) 1,000 mg PO BEDTIME [facility] Omeprazole (Omeprazole 20 Mg Capsule.) 20 mg PO BID@0630,1630 [facility] Pharmacy Consult (Consult Rx Perform Med Rec) 1 each MISCELLANE ONCE PRN PRN Reason: Consult order Promethazine HCl (Promethazine Hcl 25 Mg Tablet) 25 mg PO TID PRN PRN Reason: Nausea And Vomiting Sodium Chloride (0.9 % Sodium Chloride Flush 3 Ml Syringe) 3 ml IVFLUSH QSHIFT [facility] Home Medications Medication Instructions Recorded Confirmed Last Taken Type alprazolam 1 mg tablet (Xanax) 1 mg PO TID 04/10/20 01/29/21 01/29/21 History [id number] 1 tab PO TID PRN 04/10/20 01/29/21 01/29/21 History 50 mg-325 mg-40 mg tablet promethazine 25 mg tablet 25 mg PO TID PRN 04/10/20 01/29/21 01/28/21 History amitriptyline 50 mg tablet 50 mg PO BEDTIME 05/12/20 01/29/21 01/28/21 History aspirin 81 mg tablet,delayed 81 mg PO DAILY 05/12/20 01/29/21 01/29/21 History release atorvastatin 80 mg tablet 80 mg PO BEDTIME 05/12/20 01/29/21 01/28/21 History insulin regular hum U-500 conc 500 200 unit SUBCUT BEDTIME 05/12/20 01/29/21 01/29/21 History unit/mL subcutaneous soln (Humulin R U-500 (Concentrated) Insulin) insulin regular hum U-500 conc 500 250 unit SUBCUT QAM 05/12/20 01/29/21 01/29/21 History unit/mL subcutaneous soln (Humulin R U-500 (Concentrated) Insulin) isosorbide mononitrate 30 mg 30 mg PO DAILY 05/12/20 01/29/21 01/29/21 History tablet,extended release 24 hr losartan 100 mg tablet 100 mg PO DAILY 05/12/20 01/29/21 01/29/21 History metoclopramide HCl 10 mg tablet 10 mg PO Q6H PRN 05/12/20 01/29/21 01/28/21 History metoprolol succinate 100 mg 100 mg PO BID 05/12/20 01/29/21 01/29/21 History tablet,extended release 24 hr niacin 1,000 mg tablet,extended 1,000 mg PO BEDTIME 05/12/20 01/29/21 01/28/21 History release 24 hr omeprazole 20 mg capsule,delayed 20 mg PO BID 05/12/20 01/29/21 01/27/21 History release polyethylene glycol 3350 17 17 g PO DAILY PRN 05/12/20 01/29/21 01/29/21 History gram/dose oral powder (Miralax) topiramate 100 mg tablet 100 mg PO BID 05/12/20 01/29/21 01/29/21 History gabapentin 300 mg capsule 600 mg PO TID 01/26/21 01/29/21 01/29/21 History hydromorphone 4 mg tablet 2 mg PO QID 01/26/21 01/29/21 01/29/21 History Physical Exam Vital Signs and Narrative: Vital Signs: Last Vital Signs Temp 97.8 F 01/29/21 20:52 Pulse 90 01/29/21 20:52 Resp 16 01/29/21 20:52 BP 136/70 01/29/21 20:52 Pulse Ox 96 01/29/21 20:52 Body Mass Index 34.9 Gen: Appears be in no acute distress; confused, intermittently repeating words; oriented to person HEENT: NCAT, Moist mucosa. Pulmonary: Vesicular breath sounds, fair air entry CVS: Normal S1-S2 Abdomen: BS+, Soft, Nontender Extremities: Warm well perfused Neuro: Alert and awake. Exam limited. Moves upper extremities equally; face is symmetric; tongue is midline; right lower extremity status post amputation; Results Labs CBC and Chem 7: 01/29/21 21:01 01/29/21 19:12 Labs: Laboratory Results - last 24 hr 01/29/21 01/29/21 01/29/21 16:12 18:19 18:38 MCV MCH MCHC RDW Plt Count MPV Immature Gran % (Auto) Neut % (Auto) Lymph % (Auto) Toole % (Auto) Eos % (Auto) Baso % (Auto) Lymph # (Auto) Toole # (Auto) Eos # (Auto) Baso # (Auto) Abs Immat Gran (auto) Absolute Neuts (auto) Absolute Nucleated RBC Nucleated RBC % (auto) PT INR APTT Anion Gap Estim Creat Clear Calc Estimated GFR POC Glucose 387 H* 397 H* Random Glucose Lactic Acid Calcium Magnesium Total Bilirubin Direct Bilirubin AST ALT Alkaline Phosphatase Ammonia Troponin I High Sens Total Protein Albumin Lipase Urine Color Urine Appearance Urine pH Ur Specific [place]bern Urine Protein Urine Glucose (UA) Urine Ketones Urine Blood Urine Nitrite Ur Leukocyte Esterase Urine RBC Urine WBC Ur Squamous Epith Cells Talc Crystals Urine Bacteria Urine Mucus Urine Opiates Screen Urine Fentanyl Screen Ur Barbiturates Screen Ur Phencyclidine Scrn Ur Amphetamines Screen U Benzodiazepines Scrn Urine Cocaine Screen U Marijuana (THC) Screen COVID-19 (TA) Negative COVID-19 Clin Com See Note 01/29/21 01/29/21 01/29/21 19:12 19:12 19:12 MCV MCH MCHC RDW Plt Count MPV Immature Gran % (Auto) Neut % (Auto) Lymph % (Auto) Toole % (Auto) Eos % (Auto) Baso % (Auto) Lymph # (Auto) Toole # (Auto) Eos # (Auto) Baso # (Auto) Abs Immat Gran (auto) Absolute Neuts (auto) Absolute Nucleated RBC Nucleated RBC % (auto) PT INR APTT Anion Gap 15 Estim Creat Clear Calc 49.5 Estimated GFR 39 POC Glucose Random Glucose 383 H* Lactic Acid 1.2 Calcium 9.1 Magnesium 1.7 Total Bilirubin 0.4 Direct Bilirubin < 0.2 AST 18 ALT 13 Alkaline Phosphatase 94 D Ammonia Troponin I High Sens 7.5 D Total Protein 6.5 Albumin 3.7 Lipase 12 Urine Color Urine Appearance Urine pH Ur Specific [place] Urine Protein Urine Glucose (UA) Urine Ketones Urine Blood Urine Nitrite Ur Leukocyte Esterase Urine RBC Urine WBC Ur Squamous Epith Cells Talc Crystals Urine Bacteria Urine Mucus Urine Opiates Screen Urine Fentanyl Screen Ur Barbiturates Screen Ur Phencyclidine Scrn Ur Amphetamines Screen U Benzodiazepines Scrn Urine Cocaine Screen U Marijuana (THC) Screen COVID-19 (TA) COVID-19 Clin Com 01/29/21 01/29/21 01/29/21 19:12 19:12 19:36 MCV MCH MCHC RDW Plt Count MPV Immature Gran % (Auto) Neut % (Auto) Lymph % (Auto) Toole % (Auto) Eos % (Auto) Baso % (Auto) Lymph # (Auto) Toole # (Auto) Eos # (Auto) Baso # (Auto) Abs Immat Gran (auto) Absolute Neuts (auto) Absolute Nucleated RBC Nucleated RBC % (auto) PT 12.3 INR 1.1 APTT 31.3 Anion Gap Estim Creat Clear Calc Estimated GFR POC Glucose 307 H Random Glucose Lactic Acid Calcium Magnesium Total Bilirubin Direct Bilirubin AST ALT Alkaline Phosphatase Ammonia 19 Troponin I High Sens Total Protein Albumin Lipase Urine Color Urine Appearance Urine pH Ur Specific [place] Urine Protein Urine Glucose (UA) Urine Ketones Urine Blood Urine Nitrite Ur Leukocyte Esterase Urine RBC Urine WBC Ur Squamous Epith Cells Talc Crystals Urine Bacteria Urine Mucus Urine Opiates Screen Urine Fentanyl Screen Ur Barbiturates Screen Ur Phencyclidine Scrn Ur Amphetamines Screen U Benzodiazepines Scrn Urine Cocaine Screen U Marijuana (THC) Screen COVID-19 (TA) COVID-19 Clin Com 01/29/21 01/29/21 01/29/21 20:50 21:01 21:01 MCV 91.2 MCH 31.7 MCHC 34.7 RDW 12.8 Plt Count 224 MPV 10.3 Immature Gran % (Auto) 0.3 Neut % (Auto) 63.5 Lymph % (Auto) 24.3 Toole % (Auto) 10.6 Eos % (Auto) 1.0 Baso % (Auto) 0.3 Lymph # (Auto) 2.8 Toole # (Auto) 1.2 Eos # (Auto) 0.1 Baso # (Auto) 0.0 Abs Immat Gran (auto) 0.03 Absolute Neuts (auto) 7.3 Absolute Nucleated RBC 0.000 Nucleated RBC % (auto) 0.0 PT INR APTT Anion Gap Estim Creat Clear Calc Estimated GFR POC Glucose 237 H Random Glucose Lactic Acid Calcium Magnesium Total Bilirubin Direct Bilirubin AST ALT Alkaline Phosphatase Ammonia Troponin I High Sens Total Protein Albumin Lipase Urine Color YELLOW Urine Appearance HAZY Urine pH 6.0 Ur Specific [place]bern 1.010 Urine Protein NEG Urine Glucose (UA) NEG Urine Ketones NEG Urine Blood TRACE Urine Nitrite NEG Ur Leukocyte Esterase NEG Urine RBC 0-2 Urine WBC 0 Ur Squamous Epith Cells 1+ Talc Crystals TRACE Urine Bacteria TRACE Urine Mucus TRACE Urine Opiates Screen Urine Fentanyl Screen Ur Barbiturates Screen Ur Phencyclidine Scrn Ur Amphetamines Screen U Benzodiazepines Scrn Urine Cocaine Screen U Marijuana (THC) Screen COVID-19 (TA) COVID-19 Clin Com 01/29/21 21:01 MCV MCH MCHC RDW Plt Count MPV Immature Gran % (Auto) Neut % (Auto) Lymph % (Auto) Toole % (Auto) Eos % (Auto) Baso % (Auto) Lymph # (Auto) Toole # (Auto) Eos # (Auto) Baso # (Auto) Abs Immat Gran (auto) Absolute Neuts (auto) Absolute Nucleated RBC Nucleated RBC % (auto) PT INR APTT Anion Gap Estim Creat Clear Calc Estimated GFR POC Glucose Random Glucose Lactic Acid Calcium Magnesium Total Bilirubin Direct Bilirubin AST ALT Alkaline Phosphatase Ammonia Troponin I High Sens Total Protein Albumin Lipase Urine Color Urine Appearance Urine pH Ur Specific [place] Urine Protein Urine Glucose (UA) Urine Ketones Urine Blood Urine Nitrite Ur Leukocyte Esterase Urine RBC Urine WBC Ur Squamous Epith Cells Talc Crystals Urine Bacteria Urine Mucus Urine Opiates Screen POSITIVE H Urine Fentanyl Screen Not Detected Ur Barbiturates Screen POSITIVE H Ur Phencyclidine Scrn Not Detected Ur Amphetamines Screen Not Detected U Benzodiazepines Scrn POSITIVE H Urine Cocaine Screen Not Detected U Marijuana (THC) Screen Not Detected COVID-19 (TA) COVID-19 Clin Com Imaging Radiologist's Impressions: Impressions Chest X-Ray 01/29/21 16:17 IMPRESSION: No acute disease. Head CT 01/29/21 16:17 IMPRESSION: Left COMMERCIAL HELICOPTER PILOT territory infarct. This is new from 11/10/2020 and likely subacute given the extent of hypoattenuation of the parenchyma. This critical result was discussed with CHRISTOFER Mendoza, by telephone at 01/29/2021 6:35 PM and it was ascertained that the content and urgency of the report was understood at the time of direct communication. 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 Noted to have CVA on CT head. Admitted for further management. Confusion: Likely toxic metabolic encephalopathy. Supportive care. Upon follow-up patient is delirious and restless. Patient is on Xanax t.i.d.. Given 1 dose of IV Ativan. Left COMMERCIAL HELICOPTER PILOT territory infarct: Subacute. Speech and swallow eval/nursing dysphagia screen Neuro checks Neurology consult Echocardiogram with bubble study Patient continue on aspirin, statin Urinary retention: Patient earlier in the night had 500 cc of urine output after straight catheterization; later part of the night patient again had urinary retention up to [address] Kam catheter. Likely in the setting of opiates-which patient has been on it chronically. Urology consult. History of chronic abdominal pain/diabetic gastroparesis: Supportive care. Patient to follow-up with gastroenterology as outpatient for further management. Patient is on opiates chronically. Monitor for withdrawals. Yani collins. History of diabetes: Insulin sliding scale History of hypertension: Continue home metoprolol. Hold losartan in order to provide room for blood pressure for permissive hypertension. Left heel has hyperemia/skin changes: Pressure ulcer care per RN-> RN knows the patient mentioned the base changes are similar to the ostium and the patient was CHF. Diet: Cardiac diet once patient passes dysphagia screen/cleared by speech and swallow eval. Patient's home medications will be continued once patient passes swallow screen. DVT prophylaxis: SCD boots Code status: Full code-discussed with the patient's daughter over the phone. Quality Stroke Does the patient have a stroke diagnosis?: No VTE Prior VTE?: No VTE Risk Level:: Medical - low VTE Device Contraindication: Treatment Not Indicated VTE Drug Contraindication: N/A - Med Ordered
--- NOTE | 2021-01-29 23:30 | PC.NURSE ---
patient is resting comfortably on stretcher, breathing is even and unlabored skin is pd,w. no distress noted at this time. patient is calm at this time. has not reattempted to remove iv access. awaiting bed assignment for admission.
[2021-01-30] VITALS (15 sets, daily range): BP systolic 118–188; BP diastolic 52–95; PULSE 84–120; RESP 16–24; TEMP 36.3–37.7; O2SAT 95–99
--- NOTE | 2021-01-30 02:15 | PC.NURSE ---
PATIENT RESTING ON STRETCHER, WAKING UP FOR A FEW MINUTES AND TAKING OFF CARDIAC LEADS. MOVING ALL EXTREMITIES, NO DISTRESS NOTED. PATIENT IS AROUSABLE TO VOICE NO FACIAL GRIMACE OR GUARDING. AWAITING PLACEMENT ON THE FLOOR FOR ADMISSION TO HOSPITAL. ABLE TO RESPOND TO BASIC QUESTIONS, UNABLE TO HOLD FOCUS FOR PERIODS OF TIME. UNABLE TO FULLY VERBALIZE SPECIFIC NEEDS, DOES OKAY WITH YES AND NO QUESTIONS.
[2021-01-30 03:11] LABS: Glucose, Whole Blood 189 mg/dL (60-115)
--- NOTE | 2021-01-30 03:25 | PC.NURSE ---
PATIENT IS ALERT ATTEMPTING TO VERBALIZE NEEDS, REPEATING HERSELF OVER AND OVER, PATIENT TOLIETED AND ATTEMPT MADE TO USE BED RAND, PATIENTS BLADDER WAS NOT FULL TO PALPATION. PATIENT IS RESTLESS, ATTEMPTING TO CLIMB OUT OF THE STRETCHER. PATIENT PLACED IN HOSPITAL BED WITH NO RELIEF. CONTACTING HOPSPTIALIST FOR PATIENTS RESTLESSNESS. PATIENT HAS FACIAL GRIMACE CLIMBING OUT OF BED AND USUNABLE TO COMMUNITE WHAT IS BOTHERING HER AT THIS TIME. PLAN OF CARE FOR MEDICAITONS IV PER HOSPTILIAST.
[2021-01-30] MEDS: HYDROmorphone HCl 0.5 MG/0.5 ML SYRINGE IVPUSH (03:38)
--- NOTE | 2021-01-30 03:42 | PC.NURSE ---
PATIENT MEDICATED PER EMAR. PATIETNS IS UNABLE TO COMMUNICATE NEED AT THIS TIME, REPEATING WORDS OVER AND OVER AGAIN , CLIMBING OUT OF BED. METAL METAL METAL THEN MOM MOM MOM . ONE OF THE NURSES ASKING HAT CAN i DO TO HELP, PATIENT RESPONDED I DON'T KNOW YOU TELL ME . ATTEMPTING TO GIVE PATIENT SWAB TO WET HER MOUTH. PATIENT WIPING HER MOUTH AND PUSHING SWAB AWAY. PATIENT REPEATING WHAT THIS RN IS STAYING TO HER. PATIENT HAS BEEN RESTING COMFORTABLY FOR MOST OF THE NIGHT UNTIL THIS POINT. PATIENT SEEMS TO HAVE WOKEN UP, PATIENT IS ALERT BUT NOT ORIENTED. PATIENT THROWING PILLOWS AROUND ROOM, REPEATING PLEASE NOT METAL ATTEMPTING TOILETING AGAIN. WILL BLADDER SCAN AND SEE IF PATIENT NEEDS TO URINATE. PATIENT STRAIGHT CATHED FOR 1300ML OF CLEAR YELLOW URINE. PATIENT STILL CRYING AND RESTLESS. UNSURE OF OTHER NEEDS OF PATIENT. SCREAMING i NEED TO PEE AFTER STRAIGHT CATH WAS FINISHED.
--- NOTE | 2021-01-30 04:34 | PC.NURSE ---
DR. HAWTHORNE AT BEDSIDE FOR EVALUATION OF PATIENT AND BEHAVIORS. PATIENT CONTINUES TO BE RESTLESS, ATTEMPTING TO REMOVE IV. PATIENT SITTING UP AND ROLLING AROUND BED. THROWING HER LEGS OVER THE BED RAILS. HOSPITALIST STATING MORE MEDICATIONS IN EMAR AVAILABLE.
[2021-01-30] MEDS: LORazepam 2 MG/ML VIAL 0.5 MG IVPUSH ×2 (04:46→16:49)
--- NOTE | 2021-01-30 04:56 | PC.NURSE ---
PATIENT NOW HAS A SITTER. PINEDA PLACED, PATIENT CRYING. MEDICATED PER EMAR FOR RESTLESS.
[2021-01-30 06:53] LABS: Basophils Percent Auto 0.2 % (0-2); Hematocrit 32.7 % (37.0-47.0); MANUAL DIFF FLAG SCAN; PLT CLUMP 1; SCAN SMEAR FLAG 1
[2021-01-30 06:55] LABS: Eosinophils Absolute Auto 0.1 X10*3/uL (0.0-0.4); Eosinophils Percent Auto 0.9 % (0-4); Hemoglobin 11.3 g/dl (12.0-16.0); Imm Gran Abs Auto 0.04 X10*3/uL (0.00-0.03); Imm Gran Pct Auto 0.3 % (0.0-0.4); Lymphocytes Absolute Auto 2.2 X10*3/uL (1.2-4.9); Lymphocytes Percent Auto 18.9 % (20-40); Mean Corpuscular HGB Conc 34.6 g/dl (31.0-35.0); Mean Corpuscular Hemoglobin 31.6 pg (27.0-33.0); Mean Corpuscular Volume 91.3 fL (80.0-98.0); Mean Platelet Volume 10.8 fL (9.4-12.3); Monocytes Absolute Auto 0.9 X10*3/uL (0.1-1.2); Monocytes Percent Auto 8.1 % (2-11); Neutrophils Absolute Auto 8.3 x10*3/uL (2.0-8.3); Neutrophils Percent Auto 71.6 % (45-73); Red Blood Count 3.58 X10*6/uL (4.20-5.50); Red Cell Distribution Width 12.5 % (11.0-16.0); White Blood Count 11.6 X10*3/uL (4.8-10.8)
[2021-01-30 06:58] LABS: Anion Gap 17 (12-20); Blood Urea Nitrogen 14 mg/dL (9-16); Carbon Dioxide 18 mmol/L (22-29); Chloride 109 mmol/L (96-108); Cholesterol 151 mg/dL; Creatinine Clr Calc Pharmacy 62.6; Estimated Glomerular Filt Rate 51; Glucose Random 316 mg/dL (60-115); HDL Cholesterol 26 mg/dL; LDL Cholesterol Calculated 82 mg/dl; Potassium 3.8 mmol/L (3.3-5.1); Sodium 140 mmol/L (135-145); Triglycerides 215 mg/dL
[2021-01-30 07:24] LABS: Platelet Count 198 X10*3/uL (160-400); SLIDE REVIEW VERIFIED
--- NOTE | 2021-01-30 07:34 | PC.NURSE ---
PT ALERT NO SOB/MALDONADO NOTED SKIN PINK WARM DRY. PT IS TEARFUL AT TIMES AND IS VERY CONFUSED AND REPETITIOUS WITH HER WORDS SUCH MAMA, WHERE IS MY MOTHER. WE ARE DOING IT THE SAME . PT IS CONTINOUSLY TRYING TO GET OOB. BED ALARM ON. PINEDA CATH INTACT DRAINING CLEAR YELLOW URINE. PER TRAFFIC COUNTER RN (KRYSTINA) PT IS NPO - WILL NOT FOLLOW INSTRUCTIONS FOR SWALLOW EVAL. MD AWARE.
--- NOTE | 2021-01-30 07:59 | PC.NURSE ---
this rn attempted swallow eval and the pt spat out the water without even swallowing it.
--- NOTE | 2021-01-30 08:32 | PC.NURSE ---
dr. cardoso at bedside, pt aware of plan of care for admission to hosp.
[2021-01-30 08:41] LABS: Glucose, Whole Blood 278 mg/dL (60-115)
--- NOTE | 2021-01-30 08:48 | PC.NURSE ---
pt is c/o seeing spiders and pain, aware.. poc at [id number] is 278. pt continues to be npo.
--- NOTE | 2021-01-30 08:56 | P.PNIM_ITS ---
Subjective Subjective Date of Service: 01/31/21 Interval History: Seen in f/u for confusion and agitated, Patient was discharged from the hospital yesterday for issues related to abdominal pain and upon arriving home, EMS noted the patient not making sense when she was alert earlier, she was noted to be repeating herself over and over again. CT of the head has demonstrate stroke believe to be subacute acute. Report last night states that she was comfortable, following simple command but repeating words. This is morning she's extremely agitated, thrashing in bed constantly and repeat same words over and over. She's incapable of following commands at this time. Review of Systems Review of Systems: Yes Unobtainable due to mental status Physical Exam Vital Signs: Vital Signs: Last Vital Signs Temp 97.4 F 01/30/21 07:25 Pulse 102 H 01/30/21 07:25 Resp 20 01/30/21 07:25 BP 169/95 H 01/30/21 07:25 Pulse Ox 98 01/30/21 07:25 Body Mass Index 34.9 Const: Other: General: She's alert, yet very confused, doesn't follow commands Resp: CTA bilateral CVS: S1,S2,RRR GI: no sing of tenderness, bowel sounds present Skin: No rash Neuro: motor fuction appear intact as she moves all extremties sponta neously--exam is limitted as patient is not able to follow commands Psych: confusion, so difficult to assess Objective Data Active Medications Acetaminophen (Acetaminophen 325 Mg Tablet) 650 mg PO Q6H PRN PRN Reason: Pain, Mild (Pain Scale 1-3) Alprazolam (Alprazolam 0.5 Mg Tablet) 1 mg PO TID [facility] Amitriptyline HCl (Amitriptyline Hcl 50 Mg Tablet) 50 mg PO BEDTIME [facility] Aspirin (Aspirin Enteric Coated 81 Mg Tablet.Dr) 81 mg PO DAILY [facility] Aspirin (Aspirin 300 Mg Supp.Rect) 300 mg [place] DAILY [facility] Atorvastatin Calcium (Atorvastatin Calcium 80 Mg Tablet) 80 mg PO BEDTIME [facility] Dextrose (Dextrose 50 % 25 Gm/50 Ml Vial) 25 gm IVPUSH Q15M PRN; Protocol PRN Reason: per Hypoglycemia Standing Ord. Gabapentin (Gabapentin 300 Mg Capsule) 600 mg PO TID [facility] Glucose (Glucose Gel 15 Gm Gel..Gram.) 15 gm PO Q15M PRN; Protocol PRN Reason: per Hypoglycemia Standing Ord. Hydromorphone HCl (Hydromorphone Hcl 1 Mg/Ml Syringe) 1 mg IVPUSH Q4H PRN; Protocol PRN Reason: Pain, Severe (Pain Scale 7-10) Insulin Human Lispro (Insulin Lispro 100 Unit/Ml 3 Ml Vial) 0 unit SUBCUT QIDACHS [facility]; Protocol Isosorbide Mononitrate (Isosorbide Mononitrate 30 Mg Tab.Er.24h) 30 mg PO DAILY [facility]; Protocol Metoprolol Succinate (Metoprolol Succinate Er 100 Mg Tab.Er.24h) 100 mg PO BID [facility]; Protocol Niacin (Niacin Er 250 Mg Tablet.Er) 1,000 mg PO BEDTIME [facility] Omeprazole (Omeprazole 20 Mg Capsule.Dr) 20 mg PO BID@0630,1630 [facility] Last Admin: 01/30/21 08:34 Dose: Not Given Documented by: KEVIN Non-Admin Reason: NPO Pharmacy Consult (Consult Rx Perform Med Rec) 1 each MISCELLANE ONCE PRN PRN Reason: Consult order Promethazine HCl (Promethazine Hcl 25 Mg Tablet) 25 mg PO TID PRN PRN Reason: Nausea And Vomiting Sodium Chloride (0.9 % Sodium Chloride Flush 3 Ml Syringe) 3 ml IVFLUSH QSHIFT [facility] Last Admin: 01/30/21 08:34 Dose: Not Given Documented by: KEVIN Non-Admin Reason: NPO Topiramate (Topiramate 100 Mg Tablet) 100 mg PO BID [facility] Labs CBC & Chem 7: 01/31/21 08:19 01/31/21 08:19 Labs: Laboratory Results - last 24 hr 01/29/21 01/29/21 01/29/21 16:12 18:19 18:38 MCV MCH MCHC RDW Plt Count MPV Immature Gran % (Auto) Neut % (Auto) Lymph % (Auto) [place] % (Auto) Eos % (Auto) Baso % (Auto) Lymph # (Auto) [place] # (Auto) Eos # (Auto) Baso # (Auto) Abs Immat Gran (auto) Absolute Neuts (auto) Absolute Nucleated RBC Nucleated RBC % (auto) Smear Tech's Comments PT INR APTT Anion Gap Estim Creat Clear Calc Estimated GFR POC Glucose 387 H* 397 H* Random Glucose Lactic Acid Calcium Magnesium Total Bilirubin Direct Bilirubin AST ALT Alkaline Phosphatase Ammonia Troponin I High Sens Total Protein Albumin Triglycerides Cholesterol LDL Cholesterol, Calc HDL Cholesterol Lipase Urine Color Urine Appearance Urine pH Ur Specific [place] Urine Protein Urine Glucose (UA) Urine Ketones Urine Blood Urine Nitrite Ur Leukocyte Esterase Urine RBC Urine WBC Ur Squamous Epith Cells Talc Crystals Urine Bacteria Urine Mucus Urine Opiates Screen Urine Fentanyl Screen Ur Barbiturates Screen Ur Phencyclidine Scrn Ur Amphetamines Screen U Benzodiazepines Scrn Urine Cocaine Screen U Marijuana (THC) Screen COVID-19 (TA) Negative COVID-19 Clin Com See Note 01/29/21 01/29/21 01/29/21 19:12 19:12 19:12 MCV MCH MCHC RDW Plt Count MPV Immature Gran % (Auto) Neut % (Auto) Lymph % (Auto) [place] % (Auto) Eos % (Auto) Baso % (Auto) Lymph # (Auto) [place] # (Auto) Eos # (Auto) Baso # (Auto) Abs Immat Gran (auto) Absolute Neuts (auto) Absolute Nucleated RBC Nucleated RBC % (auto) Smear Tech's Comments PT INR APTT Anion Gap 15 Estim Creat Clear Calc 49.5 Estimated GFR 39 POC Glucose Random Glucose 383 H* Lactic Acid 1.2 Calcium 9.1 Magnesium 1.7 Total Bilirubin 0.4 Direct Bilirubin < 0.2 AST 18 ALT 13 Alkaline Phosphatase 94 D Ammonia Troponin I High Sens 7.5 D Total Protein 6.5 Albumin 3.7 Triglycerides Cholesterol LDL Cholesterol, Calc HDL Cholesterol Lipase 12 Urine Color Urine Appearance Urine pH Ur Specific [place] Urine Protein Urine Glucose (UA) Urine Ketones Urine Blood Urine Nitrite Ur Leukocyte Esterase Urine RBC Urine WBC Ur Squamous Epith Cells Tal[place] Crystals Urine Bacteria Urine Mucus Urine Opiates Screen Urine Fentanyl Screen Ur Barbiturates Screen Ur Phencyclidine Scrn Ur Amphetamines Screen U Benzodiazepines Scrn Urine Cocaine Screen U Marijuana (THC) Screen COVID-19 (TA) COVID-19 Clin Com 01/29/21 01/29/21 01/29/21 19:12 19:12 19:36 MCV MCH MCHC RDW Plt Count MPV Immature Gran % (Auto) Neut % (Auto) Lymph % (Auto) [place] % (Auto) Eos % (Auto) Baso % (Auto) Lymph # (Auto) [place] # (Auto) Eos # (Auto) Baso # (Auto) Abs Immat Gran (auto) Absolute Neuts (auto) Absolute Nucleated RBC Nucleated RBC % (auto) Smear Tech's Comments PT 12.3 INR 1.1 APTT 31.3 Anion Gap Estim Creat Clear Calc Estimated GFR POC Glucose 307 H Random Glucose Lactic Acid Calcium Magnesium Total Bilirubin Direct Bilirubin AST ALT Alkaline Phosphatase Ammonia 19 Troponin I High Sens Total Protein Albumin Triglycerides Cholesterol LDL Cholesterol, Calc HDL Cholesterol Lipase Urine Color Urine Appearance Urine pH Ur Specific [place] Urine Protein Urine Glucose (UA) Urine Ketones Urine Blood Urine Nitrite Ur Leukocyte Esterase Urine RBC Urine WBC Ur Squamous Epith Cells Talc Crystals Urine Bacteria Urine Mucus Urine Opiates Screen Urine Fentanyl Screen Ur Barbiturates Screen Ur Phencyclidine Scrn Ur Amphetamines Screen U Benzodiazepines Scrn Urine Cocaine Screen U Marijuana (THC) Screen COVID-19 (TA) COVID-19 Tech urSelf Com 01/29/21 01/29/21 01/29/21 20:50 21:01 21:01 MCV 91.2 MCH 31.7 MCHC 34.7 RDW 12.8 Plt Count 224 MPV 10.3 Immature Gran % (Auto) 0.3 Neut % (Auto) 63.5 Lymph % (Auto) 24.3 [place] % (Auto) 10.6 Eos % (Auto) 1.0 Baso % (Auto) 0.3 Lymph # (Auto) 2.8 [place] # (Auto) 1.2 Eos # (Auto) 0.1 Baso # (Auto) 0.0 Abs Immat Gran (auto) 0.03 Absolute Neuts (auto) 7.3 Absolute Nucleated RBC 0.000 Nucleated RBC % (auto) 0.0 Smear Tech's Comments PT INR APTT Anion Gap Estim Creat Clear Calc Estimated GFR POC Glucose 237 H Random Glucose Lactic Acid Calcium Magnesium Total Bilirubin Direct Bilirubin AST ALT Alkaline Phosphatase Ammonia Troponin I High Sens Total Protein Albumin Triglycerides Cholesterol LDL Cholesterol, Calc HDL Cholesterol Lipase Urine Color YELLOW Urine Appearance HAZY Urine pH 6.0 Ur Specific [place] 1.010 Urine Protein NEG Urine Glucose (UA) NEG Urine Ketones NEG Urine Blood TRACE Urine Nitrite NEG Ur Leukocyte Esterase NEG Urine RBC 0-2 Urine WBC 0 Ur Squamous Epith Cells 1+ Talc Crystals TRACE Urine Bacteria TRACE Urine Mucus TRACE Urine Opiates Screen Urine Fentanyl Screen Ur Barbiturates Screen Ur Phencyclidine Scrn Ur Amphetamines Screen U Benzodiazepines Scrn Urine Cocaine Screen U Marijuana (THC) Screen COVID-19 (TA) COVID-19 Clin Com 01/29/21 01/30/21 01/30/21 21:01 03:07 06:34 MCV 91.3 MCH 31.6 MCHC 34.6 RDW 12.5 Plt Count 198 MPV 10.8 Immature Gran % (Auto) 0.3 Neut % (Auto) 71.6 Lymph % (Auto) 18.9 L [place] % (Auto) 8.1 Eos % (Auto) 0.9 Baso % (Auto) 0.2 Lymph # (Auto) 2.2 [place] # (Auto) 0.9 Eos # (Auto) 0.1 Baso # (Auto) 0.0 Abs Immat Gran (auto) 0.04 H Absolute Neuts (auto) 8.3 Absolute Nucleated RBC 0.000 Nucleated RBC % (auto) 0.0 Smear Tech's Comments VERIFIED PT INR APTT Anion Gap Estim Creat Clear Calc Estimated GFR POC Glucose 189 H Random Glucose Lactic Acid Calcium Magnesium Total Bilirubin Direct Bilirubin AST ALT Alkaline Phosphatase Ammonia Troponin I High Sens Total Protein Albumin Triglycerides Cholesterol LDL Cholesterol, Calc HDL Cholesterol Lipase Urine Color Urine Appearance Urine pH Ur Specific [place] Urine Protein Urine Glucose (UA) Urine Ketones Urine Blood Urine Nitrite Ur Leukocyte Esterase Urine RBC Urine WBC Ur Squamous Epith Cells [place] Crystals Urine Bacteria Urine Mucus Urine Opiates Screen POSITIVE H Urine Fentanyl Screen Not Detected Ur Barbiturates Screen POSITIVE H Ur Phencyclidine Scrn Not Detected Ur Amphetamines Screen Not Detected U Benzodiazepines Scrn POSITIVE H Urine Cocaine Screen Not Detected U Marijuana (THC) Screen Not Detected COVID-19 (AT) COVID-19 Clin Com 01/30/21 01/30/21 06:34 08:37 MCV MCH MCHC RDW Plt Count MPV Immature Gran % (Auto) Neut % (Auto) Lymph % (Auto) [place] % (Auto) Eos % (Auto) Baso % (Auto) Lymph # (Auto) [place] # (Auto) Eos # (Auto) Baso # (Auto) Abs Immat Gran (auto) Absolute Neuts (auto) Absolute Nucleated RBC Nucleated RBC % (auto) Smear Tech's Comments PT INR APTT Anion Gap 17 Estim Creat Clear Calc 62.6 Estimated GFR 51 POC Glucose 278 H Random Glucose 316 H Lactic Acid Calcium 9.0 Magnesium Total Bilirubin Direct Bilirubin AST ALT Alkaline Phosphatase Ammonia Troponin I High Sens Total Protein Albumin Triglycerides 215 Cholesterol 151 LDL Cholesterol, Calc 82 HDL Cholesterol 26 Lipase Urine Color Urine Appearance Urine pH Ur Specific [place] Urine Protein Urine Glucose (UA) Urine Ketones Urine Blood Urine Nitrite Ur Leukocyte Esterase Urine RBC Urine WBC Ur Squamous Epith Cells Talc Crystals Urine Bacteria Urine Mucus Urine Opiates Screen Urine Fentanyl Screen Ur Barbiturates Screen Ur Phencyclidine Scrn Ur Amphetamines Screen U Benzodiazepines Scrn Urine Cocaine Screen U Marijuana (THC) Screen COVID-19 (TA) COVID-19 Clin Com Assessment and Plan (1) Encephalopathy acute: Status: Acute (2) CVA (cerebral vascular accident): Status: Acute Assessment and Plan: ? 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 Noted to have CVA on CT head.? Admitted for further management. #Confusion/agitation--likely multifactorial, concern for opioid and benzo withdrawal, seizure cannot be excluded, she is on high amount of opioid and X anax at home and has not received any since yesterday--Will give Dilaudid IV and Ativan (in place of home xanax) and clonidine in the event of withdrawal, EEG maybe helpful when feasible #Subacute stroke in [employer]ST[employer] territory--manifestation right now confusion and agitated which is rather acute. Ideally should have MRI for further investigation but patient will not tolerate MRI given extreme agitation and restlness. Neurology to further evaluation and recommendation. NV aspirin for as not able to take PO, once able take PO will add Statin, BP meds. Will PT, OT and speech eval. Echo #Urinary retention:? Kam in, uro consult pending #History of chronic abdominal pain/diabetic gastroparesis:? Supportive care.? Patient to follow-up with gastroenterology as outpatient for further management.? Patient is on opiates chronically. Give IV dilaudid #History of diabetes:? While NPO, Sliding, IVF #Hypertension:?Hold meds for now #Left heel has hyperemia/skin changes:? Monitor for pressure ulcer, standard pressure ulcer care #Diet:?NPO, for now I spoke to patient's daughter (HCP) and Niece in person and discuss CT finding, possibilities of what is ongoing including possible seizure, late effect of subacute stroke, we discussed further study such as MRI and EEG when she able to participate. Niece did relay speaking to her on thrusday and she was clear, daughter does say she she has periods of confusions at home but nothing like this, finally we discussed code status and they believe she would not want to be hooked up to machines but not firm committment for code change at this time. Quality Stroke Does the patient have a stroke diagnosis?: No VTE Prior VTE?: No VTE Risk Level:: Medical - low VTE Device Contraindication: Treatment Not Indicated VTE Drug Contraindication: N/A - Med Ordered
[2021-01-30] MEDS: HYDROmorphone HCl 1 MG/ML SYRINGE IVPUSH ×4 (09:10→22:57)
[2021-01-30] MEDS: Lactated Ringers 1,000 ML 80 ML IVCONT ×2 (09:35→21:18)
[2021-01-30] MEDS: Aspirin 300 MG SUPP.RECT PR (09:40)
[2021-01-30 11:39] LABS: Glucose, Whole Blood 287 mg/dL (60-115)
[2021-01-30] MEDS: LORazepam 2 MG/ML VIAL 1 MG IVPUSH ×2 (12:00→21:12)
--- NOTE | 2021-01-30 12:34 | MHC.CM.PN ---
Attempted to meet with patient in regards to discharge planning. Nursing care currently being provided. Will attempt to meet again. Continue to monitor for d/c needs.
--- NOTE | 2021-01-30 13:30 | PC.NURSE ---
pt dislodged iv to r hand.
[2021-01-30] MEDS: ondansetron HCL 4 MG/2 ML VIAL IVPUSH (14:04)
--- NOTE | 2021-01-30 14:10 | PC.NURSE ---
new iv # 22, placed to r hand and wrapped in cling. pt l heel is also wrapped with 4x4 and clinged which has a moderate red and fluid filled area for l heel protection.
--- NOTE | 2021-01-30 14:15 | PC.NURSE ---
pt's daughter deisy holguin ([phone]) at bedside. pt to be transfered to room 484. rn to rn given to [email or web address]
[2021-01-30 14:32] LABS: Glucose, Whole Blood 292 mg/dL (60-115)
[2021-01-30 17:03] LABS: Glucose, Whole Blood 314 mg/dL (60-115)
[2021-01-30] MEDS: Insulin Lispro 100 UNIT/ML 3 ML VIAL SUBCUT (17:03)
[2021-01-30] MEDS: 0.9 % Sodium Chloride Flush 3 ML SYRINGE IVFLUSH ×2 (17:06→21:17)
[2021-01-30] MEDS: cloNIDine 0.1 MG PATCH.TDWK TRANSDERMA (18:10)
[2021-01-30 21:01] LABS: Glucose, Whole Blood 223 mg/dL (60-115)
[2021-01-30] MEDS: Enoxaparin Sodium 40 MG/0.4 ML SYRINGE SUBCUT (21:41)
[2021-01-30 22:44] LABS: Glucose, Whole Blood 196 mg/dL (60-115)
[2021-01-31] MEDS: LORazepam 2 MG/ML VIAL 1 MG IVPUSH ×3 (01:08→10:15)
[2021-01-31 03:07] VITALS: BP 147/56; PULSE 67; RESP 19; TEMP 36.7; O2SAT 97
[2021-01-31] MEDS: HYDROmorphone HCl 1 MG/ML SYRINGE IVPUSH ×5 (03:37→21:54)
[2021-01-31] MEDS: Lactated Ringers 1,000 ML 80 ML IVCONT ×2 (05:55→22:07)
[2021-01-31 07:01] VITALS: BP 160/73; PULSE 117; RESP 18; TEMP 36.4; O2SAT 91
[2021-01-31 07:25] LABS: Glucose, Whole Blood 282 mg/dL (60-115)
[2021-01-31] MEDS: 0.9 % Sodium Chloride Flush 3 ML SYRINGE IVFLUSH ×3 (07:53→23:44)
[2021-01-31] MEDS: Insulin Lispro 100 UNIT/ML 3 ML VIAL SUBCUT ×3 (07:53→17:14)
[2021-01-31 08:31] LABS: Hematocrit 32.6 % (37.0-47.0); Hemoglobin 11.1 g/dl (12.0-16.0); Mean Corpuscular Hemoglobin 30.9 pg (27.0-33.0); Mean Corpuscular Volume 90.8 fL (80.0-98.0); Mean Platelet Volume 10.7 fL (9.4-12.3); Platelet Count 209 X10*3/uL (160-400); Red Blood Count 3.59 X10*6/uL (4.20-5.50); Red Cell Distribution Width 12.8 % (11.0-16.0); White Blood Count 10.7 X10*3/uL (4.8-10.8)
[2021-01-31 08:58] LABS: Anion Gap 22 (12-20); Blood Urea Nitrogen 11 mg/dL (9-16); Calcium 9.2 mg/dL (8.4-10.2); Carbon Dioxide 16 mmol/L (22-29); Chloride 111 mmol/L (96-108); Creatinine Clr Calc Pharmacy 71.1; Estimated Glomerular Filt Rate 59; Glucose Random 339 mg/dL (60-115); Potassium 4.3 mmol/L (3.3-5.1); Sodium 145 mmol/L (135-145)
--- NOTE | 2021-01-31 09:50 | HO.PM.IMPN ---
Subjective Subjective Date of Service: 02/01/21 Interval History: Seen in f/u for confusion and agitated, Patient was discharged from the hospital on 02/28 for issues related to abdominal pain and upon arriving home, EMS noted the patient not making sense when she was alert earlier, she was noted to be repeating herself over and over again. CT of the head has demonstrate stroke believe to be subacute acute. She was pretty agitated throughout the day yesterday and the night and remains so this morning, with peristent repetition or certain words. Review of Systems Review of Systems: Yes Unobtainable due to mental status Physical Exam Vital Signs: Vital Signs: Last Vital Signs Temp 97.6 F 01/31/21 07:01 Pulse 117 H 01/31/21 07:01 Resp 18 01/31/21 07:01 BP 160/73 H 01/31/21 07:01 Pulse Ox 91 L 01/31/21 07:01 Body Mass Index 34.9 Const: Other: General: She's alert, yet very confused, doesn't follow commands Resp: CTA bilateral CVS: S1,S2,RRR GI: no sing of tenderness, bowel sounds present Skin: No rash, redness around left heel, crhonic, BKA of the right Neuro: motor fuction appear intact as she moves all extremties spontaneously--exam is limitted as patient is not able to follow commands Psych: confusion, so difficult to assess Objective Data Active Medications Acetaminophen (Acetaminophen 325 Mg Tablet) 650 mg PO Q6H PRN PRN Reason: Pain, Mild (Pain Scale 1-3) Alprazolam (Alprazolam 0.5 Mg Tablet) 1 mg PO TID [facility] Last Admin: 01/30/21 21:15 Dose: Not Given Documented by: VINEET Non-Admin Reason: NPO Amitriptyline HCl (Amitriptyline Hcl 50 Mg Tablet) 50 mg PO BEDTIME [facility] Last Admin: 01/30/21 21:15 Dose: Not Given Documented by: VINEET Non-Admin Reason: NPO Aspirin (Aspirin Enteric Coated 81 Mg Tablet.Dr) 81 mg PO DAILY [facility] Last Admin: 01/30/21 09:31 Dose: Not Given Documented by: KEVIN Non-Admin Reason: NPO Aspirin (Aspirin 300 Mg Supp.Rect) 300 mg [place] DAILY [facility] Last Admin: 01/30/21 09:40 Dose: 300 mg Documented by: KEVIN Atorvastatin Calcium (Atorvastatin Calcium 80 Mg Tablet) 80 mg PO BEDTIME [facility] Last Admin: 01/30/21 21:15 Dose: Not Given Documented by: VINEET Non-Admin Reason: NPO Dextrose (Dextrose 50 % 25 Gm/50 Ml Vial) 25 gm IVPUSH Q15M PRN; Protocol PRN Reason: per Hypoglycemia Standing Ord. Enoxaparin Sodium (Enoxaparin Sodium 40 Mg/0.4 Ml Syringe) 40 mg SUBCUT Q24H [facility] Last Admin: 01/30/21 21:41 Dose: 40 mg Documented by: VINEET Comments: give prior to 2300 per emergency management coordinator Gabapentin (Gabapentin 300 Mg Capsule) 600 mg PO TID [facility] Last Admin: 01/30/21 21:15 Dose: Not Given Documented by: VINEET Non-Admin Reason: NPO Glucose (Glucose Gel 15 Gm Gel..Gram.) 15 gm PO Q15M PRN; Protocol PRN Reason: per Hypoglycemia Standing Ord. Hydromorphone HCl (Hydromorphone Hcl 1 Mg/Ml Syringe) 1 mg IVPUSH Q4H PRN; Protocol PRN Reason: Pain, Severe (Pain Scale 7-10) Last Admin: 01/31/21 07:53 Dose: 1 mg Documented by: ODALYS Lactated Ringer's (Lr) 1,000 mls @ 80 mls/hr IVCONT .[id number] [facility] Last Admin: 01/31/21 05:55 Dose: 80 mls/hr Documented by: VINEET Insulin Human Lispro (Insulin Lispro 100 Unit/Ml 3 Ml Vial) 0 unit SUBCUT QIDACHS [facility]; Protocol Last Admin: 01/31/21 07:53 Dose: 6 unit Documented by: ODALYS Isosorbide Mononitrate (Isosorbide Mononitrate 30 Mg Tab.Er.24h) 30 mg PO DAILY [facility]; Protocol Last Admin: 01/30/21 09:32 Dose: Not Given Documented by: KEVIN Non-Admin Reason: NPO Lorazepam (Lorazepam 2 Mg/Ml Vial) 1 mg IVPUSH Q4H PRN PRN Reason: Anxiety Last Admin: 01/31/21 05:55 Dose: 1 mg Documented by: VINEET Metoprolol Succinate (Metoprolol Succinate Er 100 Mg Tab.Er.24h) 100 mg PO BID [facility]; Protocol Last Admin: 01/30/21 21:14 Dose: Not Given Documented by: VINEET Non-Admin Reason: NPO Niacin (Niacin Er 250 Mg Tablet.Er) 1,000 mg PO BEDTIME [facility] Last Admin: 01/30/21 21:16 Dose: Not Given Documented by: VINEET Non-Admin Reason: NPO Omeprazole (Omeprazole 20 Mg Capsule.Dr) 20 mg PO BID@0630,1630 [facility] Last Admin: 01/31/21 02:49 Dose: Not Given Documented by: VINEET Non-Admin Reason: NPO Ondansetron HCl (Ondansetron Hcl 4 Mg/2 Ml Vial) 4 mg IVPUSH Q8H PRN PRN Reason: Nausea and Vomiting Last Admin: 01/30/21 14:04 Dose: 4 mg Documented by: KEVIN Pharmacy Consult (Consult Rx Perform Med Rec) 1 each MISCELLANE ONCE PRN PRN Reason: Consult order Promethazine HCl (Promethazine Hcl 25 Mg Tablet) 25 mg PO TID PRN PRN Reason: Nausea And Vomiting Sodium Chloride (0.9 % Sodium Chloride Flush 3 Ml Syringe) 3 ml IVFLUSH QSHIFT [facility] Last Admin: 01/31/21 07:53 Dose: 3 ml Documented by: ODALYS Topiramate (Topiramate 100 Mg Tablet) 100 mg PO BID [facility] Last Admin: 01/30/21 21:16 Dose: Not Given Documented by: VINEET Non-Admin Reason: NPO Labs CBC & Chem 7: 01/31/21 08:19 01/31/21 08:19 Labs: Laboratory Results - last 24 hr 01/30/21 01/30/21 01/30/21 11:34 14:28 16:53 MCV MCH MCHC RDW Plt Count MPV Absolute Nucleated RBC Nucleated RBC % (auto) Anion Gap Estim Creat Clear Calc Estimated GFR POC Glucose 287 H 292 H 314 H Random Glucose Calcium 11/13/21 11/13/21 11/14/21 20:45 22:40 07:08 MCV MCH MCHC RDW Plt Count MPV Absolute Nucleated RBC Nucleated RBC % (auto) Anion Gap Estim Creat Clear Calc Estimated GFR POC Glucose 223 H 196 H 282 H Random Glucose Calcium 01/31/21 01/31/21 08:19 08:19 MCV 90.8 MCH 30.9 MCHC 34.0 RDW 12.8 Plt Count 209 MPV 10.7 Absolute Nucleated RBC 0.000 Nucleated RBC % (auto) 0.0 Anion Gap 22 H Estim Creat Clear Calc 71.1 Estimated GFR 59 POC Glucose Random Glucose 339 H Calcium 9.2 Microbiology Microbiology Results: Microbiology 01/29/21 19:00 Blood Culture - Preliminary Blood - Venous No growth after 24 hours. 01/29/21 19:00 Blood Culture - Preliminary Blood - Venous No growth after 24 hours. Assessment and Plan (1) Delirium due to another medical condition: Status: Acute Assessment and Plan: ? 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 Noted to have CVA on CT head.? Admitted for further management. 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 Ideally should have MRI for further investigation but patient will not tolerate MRI given extreme agitation and restlness. Still waiting on Neurology to further evaluation and recommendation. [place] aspirin for as not able to take PO, once able take PO will add Statin, BP meds. Will PT, OT and speech eval. Echo #Urinary retention:? Kam in, Seen by Dr. Osorio and radha to remain in for now #History of chronic abdominal pain/diabetic gastroparesis:? Supportive care.? Patient to follow-up with gastroenterology as outpatient for further management.? Patient is on dilaudid at home, Give IV dilaudid and IV ativan in place of Xanax #History of diabetes:? While NPO, Sliding, IVF #Hypertension:?Hold meds for now #Left heel has hyperemia/skin changes:? Monitor for pressure ulcer, standard pressure ulcer care #Diet:?NPO, for now I spoke to patient's daughter (HCP) and Niece in person and discuss CT finding, possibilities of what is ongoing including possible seizure, late effect of subacute stroke, we discussed further study such as MRI and EEG when she able to participate. Niece did relay speaking to her on thrusday and she was clear, daughter does say she she has periods of confusions at home but nothing like this, finally we discussed code status and they believe she would not want to be hooked up to machines but not firm committment for code change at this time. Quality Stroke Does the patient have a stroke diagnosis?: No VTE Prior VTE?: No VTE Risk Level:: Medical - low VTE Device Contraindication: Treatment Not Indicated VTE Drug Contraindication: N/A - Med Ordered
--- NOTE | 2021-01-31 10:37 | PM.NEUROCN ---
History of Present Illness Data of Consult Service Date: 01/31/21 Primary Care Provider: Rafiq Zhong MD HPI Reason for consult: Confusion 60 years old woman who was recently admitted to the hospital with abdominal pain and related complications. She was brought back to hospital after she was noted to be confused. Her niece was on the bedside stated that this was different. She was unable to recognize her knees. She was quite restless stating something not particularly making sense. She was unable to answer meaningful questions. Review of Systems Review of Systems: Could not be done with her. [facility] Past Medical History Medical History Anxiety Below knee amputation CAD (coronary artery disease) Chronic pain syndrome Depression Gastroparesis History of gastrostomy tube placement History of peptic ulcer disease HTN (hypertension) IDDM (insulin dependent diabetes mellitus) Liver lesion Myocardial infarction Wheelchair bound Family History Family History Father Coronary arteriosclerosis Surgical History Surgical History History of back surgery Hx of BKA Social History Social History Household Members: Unknown / Unable to assess Housing: Unknown / Unable to assess Are you a primary youth care professional to a significant other at home: No Do you presently have visiting nurse or other home services: Yes Unable to assess alcohol history related to: Unable to respond Alcohol intake: never Patient Tobacco Use Status: Tobacco use Unknown Second Hand Smoke Exposure: No Use of substances other than those prescribed or required for medical reasons: Unknown Currently Displaying Signs/Symptoms of Drug Intoxication Withdrawal: No Spiritual Healthcare Practices: Unable to respond Advance Directives: Yes Advance Directives on File: Yes Advance Directives Date on File: 05/12/20 Do you have thoughts of harming others: None Do you have a plan to hurt others: No Plan Patient : No service: No Current occupational status: unemployed and disabled Meds Allergies Allergy/AdvReac Type Severity Reaction Status Date / Time Penicillins [PENICILLINS] Allergy Mild HIVES Verified 05/25/20 04:33 clarithromycin [From Biaxin] Allergy Unknown HIVES Verified 05/25/20 04:33 penicillin V Allergy Unknown rash, Verified 05/25/20 04:33 throat tight bioxin Allergy Unknown Unknown Uncoded 05/25/20 04:33 penicillin Allergy Unknown Unknown Uncoded 05/25/20 04:33 Active Medications: Current Medications Acetaminophen (Acetaminophen 325 Mg Tablet) 650 mg PO Q6H PRN PRN Reason: Pain, Mild (Pain Scale 1-3) Alprazolam (Alprazolam 0.5 Mg Tablet) 1 mg PO TID [facility] Last Admin: 01/30/21 21:15 Dose: Not Given Documented by: Amitriptyline HCl (Amitriptyline Hcl 50 Mg Tablet) 50 mg PO BEDTIME [facility] Last Admin: 01/30/21 21:15 Dose: Not Given Documented by: Aspirin (Aspirin Enteric Coated 81 Mg Tablet.Dr) 81 mg PO DAILY [facility] Last Admin: 01/30/21 09:31 Dose: Not Given Documented by: Aspirin (Aspirin 300 Mg Supp.Rect) 300 mg [place] DAILY [facility] Last Admin: 01/30/21 09:40 Dose: 300 mg Documented by: Atorvastatin Calcium (Atorvastatin Calcium 80 Mg Tablet) 80 mg PO BEDTIME [facility] Last Admin: 01/30/21 21:15 Dose: Not Given Documented by: Dextrose (Dextrose 50 % 25 Gm/50 Ml Vial) 25 gm IVPUSH Q15M PRN; Protocol PRN Reason: per Hypoglycemia Standing Ord. Enoxaparin Sodium (Enoxaparin Sodium 40 Mg/0.4 Ml Syringe) 40 mg SUBCUT Q24H [facility] Last Admin: 01/30/21 21:41 Dose: 40 mg Documented by: Gabapentin (Gabapentin 300 Mg Capsule) 600 mg PO TID [facility] Last Admin: 01/30/21 21:15 Dose: Not Given Documented by: Glucose (Glucose Gel 15 Gm Gel..Gram.) 15 gm PO Q15M PRN; Protocol PRN Reason: per Hypoglycemia Standing Ord. Hydromorphone HCl (Hydromorphone Hcl 1 Mg/Ml Syringe) 1 mg IVPUSH Q4H PRN; Protocol PRN Reason: Pain, Severe (Pain Scale 7-10) Last Admin: 01/31/21 07:53 Dose: 1 mg Documented by: Lactated Ringer's (Lr) 1,000 mls @ 80 mls/hr IVCONT .[id number] [facility] Last Admin: 01/31/21 05:55 Dose: 80 mls/hr Documented by: Insulin Human Lispro (Insulin Lispro 100 Unit/Ml 3 Ml Vial) 0 unit SUBCUT QIDACHS [facility]; Protocol Last Admin: 01/31/21 07:53 Dose: 6 unit Documented by: Isosorbide Mononitrate (Isosorbide Mononitrate 30 Mg Tab.Er.24h) 30 mg PO DAILY [facility]; Protocol Last Admin: 01/30/21 09:32 Dose: Not Given Documented by: Lorazepam (Lorazepam 2 Mg/Ml Vial) 1 mg IVPUSH Q4H PRN PRN Reason: Anxiety Last Admin: 01/31/21 10:15 Dose: 1 mg Documented by: Metoprolol Succinate (Metoprolol Succinate Er 100 Mg Tab.Er.24h) 100 mg PO BID [facility]; Protocol Last Admin: 01/30/21 21:14 Dose: Not Given Documented by: Niacin (Niacin Er 250 Mg Tablet.Er) 1,000 mg PO BEDTIME [facility] Last Admin: 01/30/21 21:16 Dose: Not Given Documented by: Omeprazole (Omeprazole 20 Mg Capsule.Dr) 20 mg PO BID@0630,1630 [facility] Last Admin: 01/31/21 02:49 Dose: Not Given Documented by: Ondansetron HCl (Ondansetron Hcl 4 Mg/2 Ml Vial) 4 mg IVPUSH Q8H PRN PRN Reason: Nausea and Vomiting Last Admin: 01/30/21 14:04 Dose: 4 mg Documented by: Pharmacy Consult (Consult Rx Perform Med Rec) 1 each MISCELLANE ONCE PRN PRN Reason: Consult order Promethazine HCl (Promethazine Hcl 25 Mg Tablet) 25 mg PO TID PRN PRN Reason: Nausea And Vomiting Sodium Chloride (0.9 % Sodium Chloride Flush 3 Ml Syringe) 3 ml IVFLUSH QSHIFT [facility] Last Admin: 01/31/21 07:53 Dose: 3 ml Documented by: Topiramate (Topiramate 100 Mg Tablet) 100 mg PO BID [facility] Last Admin: 01/30/21 21:16 Dose: Not Given Documented by: Home Medications Medication Instructions Recorded Confirmed Last Taken Type alprazolam 1 mg tablet (Xanax) 1 mg PO TID 04/10/20 01/29/21 01/29/21 History nvhnxzarfk-bieyvlwbgamfw-wuyarwkp 1 tab PO TID PRN 04/10/20 01/29/21 01/29/21 History 50 mg-325 mg-40 mg tablet promethazine 25 mg tablet 25 mg PO TID PRN 04/10/20 01/29/21 01/28/21 History amitriptyline 50 mg tablet 50 mg PO BEDTIME 05/12/20 01/29/21 01/28/21 History aspirin 81 mg tablet,delayed 81 mg PO DAILY 05/12/20 01/29/21 01/29/21 History release atorvastatin 80 mg tablet 80 mg PO BEDTIME 05/12/20 01/29/21 01/28/21 History insulin regular hum U-500 conc 500 200 unit SUBCUT BEDTIME 05/12/20 01/29/21 01/29/21 History unit/mL subcutaneous soln (Humulin R U-500 (Concentrated) Insulin) insulin regular hum U-500 conc 500 250 unit SUBCUT QAM 05/12/20 01/29/21 01/29/21 History unit/mL subcutaneous soln (Humulin R U-500 (Concentrated) Insulin) isosorbide mononitrate 30 mg 30 mg PO DAILY 05/12/20 01/29/21 01/29/21 History tablet,extended release 24 hr losartan 100 mg tablet 100 mg PO DAILY 05/12/20 01/29/21 01/29/21 History metoclopramide HCl 10 mg tablet 10 mg PO Q6H PRN 05/12/20 01/29/21 01/28/21 History metoprolol succinate 100 mg 100 mg PO BID 05/12/20 01/29/21 01/29/21 History tablet,extended release 24 hr niacin 1,000 mg tablet,extended 1,000 mg PO BEDTIME 05/12/20 01/29/21 01/28/21 History release 24 hr omeprazole 20 mg capsule,delayed 20 mg PO BID 05/12/20 01/29/21 01/27/21 History release polyethylene glycol 3350 17 17 g PO DAILY PRN 05/12/20 01/29/21 01/29/21 History gram/dose oral powder (Miralax) topiramate 100 mg tablet 100 mg PO BID 05/12/20 01/29/21 01/29/21 History gabapentin 300 mg capsule 600 mg PO TID 01/26/21 01/29/21 01/29/21 History hydromorphone 4 mg tablet 2 mg PO QID 01/26/21 01/29/21 01/29/21 History Physical Exam Vital Signs: Vital Signs: Last Vital Signs Temp 97.6 F 01/31/21 07:01 Pulse 117 H 01/31/21 07:01 Resp 18 01/31/21 07:01 BP 160/73 H 01/31/21 07:01 Pulse Ox 91 L 01/31/21 07:01 Body Mass Index 34.9 Neuro: Other: She was alert and awake but quite restless moving around in the bed. Sometime she would follow one-step commands such as squeeze my hand when I ask her to do so. Otherwise she was not answering questions. When I see if he was hungry she did not respond. She was sometimes repeating words and according to her knees she was unable to recognize her. There was no obvious obvious focal arm or leg weakness. Plantars were flat. Face seems symmetrical. She was not cooperative to formal exam and did not open her eyes. I forcibly open her eyes and there was no obvious gaze deviation. Results Labs CBC & Chem 7: 01/31/21 08:19 01/31/21 08:19 Labs: Short CBC 01/31/21 Range/Units 08:19 WBC 10.7 (4.8-10.8) X10*3/uL Hgb 11.1 L (12.0-16.0) g/dl Hct 32.6 L (37.0-47.0) % Plt Count 209 (160-400) X10*3/uL BMP 01/31/21 08:19 Sodium 145 Potassium 4.3 Chloride 111 H Carbon Dioxide 16 L BUN 11 Creatinine 0.96 Calcium 9.[address] revealed a large left posterior cerebral artery area hypodense signal abnormality that could be subacute ischemic infarction. Microbiology Microbiology Results: Microbiology 01/29/21 19:00 Blood - Venous Blood Culture - Preliminary No growth after 24 hours. 01/29/21 19:00 Blood - Venous Blood Culture - Preliminary No growth after 24 hours. Assessment and Plan (1) Encephalopathy acute: Status: Acute 60 years old woman for acutely encephalopathic that might be combination of aphasia and encephalopathy. She has a new large left posterior cerebral artery lesion, probably a subacute ischemic infarction. Sometimes it can cause sensory aphasia, which could look like confusion but she seemed to be in significant distress that would be difficult to explain. In any case, my recommendation at this time is to obtain an MRI of brain without contrast when feasible. It is not urgent. Similarly a CTA of brain and neck are also recommended. In the meantime exploration for any cause that could result in pain or distress should be looked after. If no cause is found, and aphasia seemed to be the only explanation, treatment of this type of encephalopathy could be quite difficult and challenging. In the meantime I recommend continuing antiplatelet agent. Procedures Date of Service Date of Service: 01/31/21
[2021-01-31 11:31] LABS: Glucose, Whole Blood 230 mg/dL (60-115)
[2021-01-31 11:44] VITALS: BP 166/72; PULSE 110; RESP 20; TEMP 37.2; O2SAT 97
--- NOTE | 2021-01-31 11:47 | MHC.CM.PN ---
CM MET WITH PTS NIECE, RAÚL, WHO WAS AT BEDSIDE. RAÚL REPORTS SHE HAS BEEN HERE A COUPLE HOURS AND THE PT IS JUST NOW CALMING. SHE REPORTS THE PT HAD BEEN AGITATED AND REPEATING THE SAME THING OVER AND OVER. PER DISCUSSION, CM DID NOT ATTEMPT TO WAKE PT. 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 PT LIVES ALONE AND HAS PRODUCT MARKETING DIRECTOR SERVICES DAILY TO ASSIST WITH ALL CARE PT IS ALSO ACTIVE WITH COMMUNITY NAVIGATION PT IS WHEEL CHAIR BOUND AT BASELINE AND USES [facility] TRANSPORT TO [facility]PT[facility] PCP IS VICENTE HARKINS PT HAS A HCP ON FILE CURRENT DC PLAN IS HOME WITH RESUMPTION OF PRODUCT MARKETING DIRECTOR SERVICES BLS TRANSPORT
[2021-01-31] MEDS: LORazepam 2 MG/ML VIAL IVPUSH ×3 (12:21→21:03)
[2021-01-31] MEDS: Enoxaparin Sodium 40 MG/0.4 ML SYRINGE SUBCUT (12:21)
[2021-01-31] MEDS: Haloperidol Lactate 5 MG/ML VIAL 2 MG IM (14:15)
--- NOTE | 2021-01-31 14:21 | P.CONCC_ITS ---
History of Present Illness Data of Consult Service Date: 01/31/21 Requesting physician: Juan Rueda Primary Care Provider: Rafiq Zhong MD HPI Dr. Rueda asked me to look at Mrs. Mcqueen in regards to possible need for ICU transfer for delirium management. The patient is a 60-year-old woman with a past medical history of hypertension, hyperlipidemia, diabetes, diabetic gastroparesis, anxiety, and chronic abdominal pain.? She was dischargeed from the hospital on Jan 29 after a 3-day hospitalization for evaluation of vfduq-qx-pxcwtsv abdominal pain. Work up showed gallstones, clinically no acute cholecystitis. HIDA showed normal liver function; no scintigraphic evidence of biliary/CBD obstruction; and a nonvisualized gallbladder. Her pain was treated with IV dilaudid and over the course of hospitalization has improved. ?She is tolerating regular diet.?? She was thought to have had acute on chronic abdominal pain from gastroparesis.? She was also evaluated by GI (Dr. 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 The patient was taken home by EMS, but on arrival at her home, she was noted to be confused and not making sense; hence she was brought back to the hospital for further evaluation.? On evaluation by Medicine, she was calm and following simple commands, but confused and repeating words.? Notably, the patient's daughter said that when she spoke with her mother the morning of discharge, her mother was confused. w/u via CT head showed a nonacute left occipital infarct with fully formed encephalomalacia.? She had no gross neuro deficits, but her visual bond were unable to be checked.? There was no s/sx of any infection on admission.? She?s been afebrile.? Renal fxn and sodium level were OK, glucose was moderately elevated.? u/a done 01/29 was negative.? Tox screen was positive for urine opiates, barbiturates, and benzodiazepines. This morning she was extremely agitated, thrashing in bed constantly and repeating same words over and over. ?She was incapable of following commands.? Seen by Dr. Barrientos.? In the absence of another cause, he thinks this may be aphasia w encephalopathy 2? stroke. I went up to see the patient.? She she is moderately hypertensive and intermittently mildly tachycardic.? She is breathing easy with sat up to high 90s on room air.? She is afebrile.? Looking at her from the foot of the bed, she is moving around in the bed quite a bit, has no obvious neuro deficits.? She is breathing easy looks thoroughly nontoxic.? The only thing that appears wrong is that she is highly delirious.? Nothing life threatening though. IMPRESSION:? 60 yo woman with mult medical problems, on mult meds at home, including amitriptyline, gabapentin, Xanax, opiates, and topiramate.? Now presents with acute delirium. 1. Acute delirium/encephalopathy.? (Can?t qualify the encephalopathy further at this time.)? 2. Stroke.? Timing is not clear, but no more recent than subacute, given that she has fully formed encephalomalacia. 3. Uncontrolled HTN. Poisoning or deliberate ingestion of some substance appears unlikely, given that the patient was in the hospital and never unsupervised once she left. Withdrawal from one of a number of the medications she was taking is a possibility, in particular Xanax.? A call to poison control might be helpful. Lastly, I wonder if an LP is indicated.? Neurology should weigh in on that.? She would need anesthesia sedation for such a procedure. Discussed at length with Dr. Rueda in mult conversation.? No need (yet) for ICU transfer for delirium management.? Will reconsult if nec. Time (including extended chart review):? 100 min. [facility] Past Medical History Medical History Anxiety Below knee amputation CAD (coronary artery disease) Chronic pain syndrome Depression Gastroparesis History of gastrostomy tube placement History of peptic ulcer disease HTN (hypertension) IDDM (insulin dependent diabetes mellitus) Liver lesion Myocardial infarction Wheelchair bound Family History Family History Father Coronary arteriosclerosis Surgical History Surgical History History of back surgery Hx of BKA Social History Social History Household Members: Unknown / Unable to assess Housing: Unknown / Unable to assess Are you a primary residential caregiver to a significant other at home: No Do you presently have visiting nurse or other home services: Yes Unable to assess alcohol history related to: Unable to respond Alcohol intake: never Patient Tobacco Use Status: Tobacco use Unknown Second Hand Smoke Exposure: No Use of substances other than those prescribed or required for medical reasons: Unknown Currently Displaying Signs/Symptoms of Drug Intoxication Withdrawal: No Spiritual Healthcare Practices: Unable to respond Advance Directives: Yes Advance Directives on File: Yes Advance Directives Date on File: 05/12/20 Do you have thoughts of harming others: None Do you have a plan to hurt others: No Plan Patient : No service: No Current occupational status: unemployed and disabled Meds Allergies Allergy/AdvReac Type Severity Reaction Status Date / Time Penicillins [PENICILLINS] Allergy Mild HIVES Verified 05/25/20 04:33 clarithromycin [From Biaxin] Allergy Unknown HIVES Verified 05/25/20 04:33 penicillin V Allergy Unknown rash, Verified 05/25/20 04:33 throat tight bioxin Allergy Unknown Unknown Uncoded 05/25/20 04:33 penicillin Allergy Unknown Unknown Uncoded 05/25/20 04:33 Active Medications: Current Medications Acetaminophen (Acetaminophen 325 Mg Tablet) 650 mg PO Q6H PRN PRN Reason: Pain, Mild (Pain Scale 1-3) Amitriptyline HCl (Amitriptyline Hcl 50 Mg Tablet) 50 mg PO BEDTIME [facility] Last Admin: 01/30/21 21:15 Dose: Not Given Documented by: Aspirin (Aspirin Enteric Coated 81 Mg Tablet.Dr) 81 mg PO DAILY [facility] Last Admin: 01/31/21 11:04 Dose: Not Given Documented by: Aspirin (Aspirin 300 Mg Supp.Rect) 300 mg [place] DAILY [facility] Last Admin: 01/31/21 11:07 Dose: Not Given Documented by: Atorvastatin Calcium (Atorvastatin Calcium 80 Mg Tablet) 80 mg PO BEDTIME [facility] Last Admin: 01/30/21 21:15 Dose: Not Given Documented by: Dextrose (Dextrose 50 % 25 Gm/50 Ml Vial) 25 gm IVPUSH Q15M PRN; Protocol PRN Reason: per Hypoglycemia Standing Ord. Enoxaparin Sodium (Enoxaparin Sodium 40 Mg/0.4 Ml Syringe) 40 mg SUBCUT Q24H [facility] Last Admin: 01/31/21 12:21 Dose: 40 mg Documented by: Gabapentin (Gabapentin 300 Mg Capsule) 600 mg PO TID [facility] Last Admin: 01/31/21 11:04 Dose: Not Given Documented by: Glucose (Glucose Gel 15 Gm Gel..Gram.) 15 gm PO Q15M PRN; Protocol PRN Reason: per Hypoglycemia Standing Ord. Hydromorphone HCl (Hydromorphone Hcl 1 Mg/Ml Syringe) 1 mg IVPUSH Q4H PRN; Pro tocol PRN Reason: Pain, Severe (Pain Scale 7-10) Last Admin: 01/31/21 07:53 Dose: 1 mg Documented by: Lactated Ringer's (Lr) 1,000 mls @ 80 mls/hr IVCONT .[id number] [facility] Last Admin: 01/31/21 11:27 Dose: Not Given Documented by: Promethazine HCl 12.5 mg/ (Sodium Chloride) 50.5 mls @ 202 mls/hr IV Q4H PRN PRN Reason: Nausea and Vomiting Insulin Human Lispro (Insulin Lispro 100 Unit/Ml 3 Ml Vial) 0 unit SUBCUT QIDACHS [facility]; Protocol Last Admin: 01/31/21 12:21 Dose: 4 unit Documented by: Isosorbide Mononitrate (Isosorbide Mononitrate 30 Mg Tab.Er.24h) 30 mg PO DAILY [facility]; Protocol Last Admin: 01/31/21 11:06 Dose: Not Given Documented by: Lorazepam (Lorazepam 2 Mg/Ml Vial) 1 mg IVPUSH Q4H PRN PRN Reason: Anxiety Last Admin: 01/31/21 10:15 Dose: 1 mg Documented by: Lorazepam (Lorazepam 2 Mg/Ml Vial) 2 mg IVPUSH TID [facility] Last Admin: 01/31/21 12:21 Dose: 2 mg Documented by: Metoprolol Succinate (Metoprolol Succinate Er 100 Mg Tab.Er.24h) 100 mg PO BID [facility]; Protocol Last Admin: 01/31/21 11:06 Dose: Not Given Documented by: Niacin (Niacin Er 250 Mg Tablet.Er) 1,000 mg PO BEDTIME [facility] Last Admin: 01/30/21 21:16 Dose: Not Given Documented by: Omeprazole (Omeprazole 20 Mg Capsule.Dr) 20 mg PO BID@0630,1630 [facility] Last Admin: 01/31/21 02:49 Dose: Not Given Documented by: Pharmacy Consult (Consult Rx Perform Med Rec) 1 each MISCELLANE ONCE PRN PRN Reason: Consult order Sodium Chloride (0.9 % Sodium Chloride Flush 3 Ml Syringe) 3 ml IVFLUSH QSHIFT [facility] Last Admin: 01/31/21 07:53 Dose: 3 ml Documented by: Topiramate (Topiramate 100 Mg Tablet) 100 mg PO BID [facility] Last Admin: 01/31/21 11:06 Dose: Not Given Documented by: Home Medications Medication Instructions Recorded Confirmed Last Taken Type alprazolam 1 mg tablet (Xanax) 1 mg PO TID 04/10/20 01/29/21 01/29/21 History tabzljfzba-jtcqvbfrhehpe-cmyxcvnu 1 tab PO TID PRN 04/10/20 01/29/21 01/29/21 History 50 mg-325 mg-40 mg tablet promethazine 25 mg tablet 25 mg PO TID PRN 04/10/20 01/29/21 01/28/21 History amitriptyline 50 mg tablet 50 mg PO BEDTIME 05/12/20 01/29/21 01/28/21 History aspirin 81 mg tablet,delayed 81 mg PO DAILY 05/12/20 01/29/21 01/29/21 History release atorvastatin 80 mg tablet 80 mg PO BEDTIME 05/12/20 01/29/21 01/28/21 History insulin regular hum U-500 conc 500 200 unit SUBCUT BEDTIME 05/12/20 01/29/21 01/29/21 History unit/mL subcutaneous soln (Humulin R U-500 (Concentrated) Insulin) insulin regular hum U-500 conc 500 250 unit SUBCUT QAM 05/12/20 01/29/21 01/29/21 History unit/mL subcutaneous soln (Humulin R U-500 (Concentrated) Insulin) isosorbide mononitrate 30 mg 30 mg PO DAILY 05/12/20 01/29/21 01/29/21 History tablet,extended release 24 hr losartan 100 mg tablet 100 mg PO DAILY 05/12/20 01/29/21 01/29/21 History metoclopramide HCl 10 mg tablet 10 mg PO Q6H PRN 05/12/20 01/29/21 01/28/21 History metoprolol succinate 100 mg 100 mg PO BID 05/12/20 01/29/2101/29/21 History tablet,extended release 24 hr niacin 1,000 mg tablet,extended 1,000 mg PO BEDTIME 05/12/20 01/29/21 01/28/21 History release 24 hr omeprazole 20 mg capsule,delayed 20 mg PO BID 05/12/20 01/29/21 01/27/21 History release polyethylene glycol 3350 17 17 g PO DAILY PRN 05/12/20 01/29/21 01/29/21 History gram/dose oral powder (Miralax) topiramate 100 mg tablet 100 mg PO BID 05/12/20 01/29/21 01/29/21 History gabapentin 300 mg capsule 600 mg PO TID 01/26/21 01/29/21 01/29/21 History hydromorphone 4 mg tablet 2 mg PO QID 01/26/21 01/29/21 01/29/21 History Physical Exam Vital Signs: Vital Signs: Last Vital Signs Temp 99.0 F 01/31/21 11:44 Pulse 110 H 01/31/21 11:44 Resp 20 01/31/21 11:44 BP 166/72 H 01/31/21 11:44 Pulse Ox 97 01/31/21 11:44 Body Mass Index 34.9 Results Labs CBC & Chem 7: 01/31/21 08:19 01/31/21 08:19 Labs: Short CBC 01/31/21 Range/Units 08:19 WBC 10.7 (4.8-10.8) X10*3/uL Hgb 11.1 L (12.0-16.0) g/dl Hct 32.6 L (37.0-47.0) % Plt Count 209 (160-400) X10*3/uL BMP 01/31/21 08:19 Sodium 145 Potassium 4.3 Chloride 111 H Carbon Dioxide 16 L BUN 11 Creatinine 0.96 Calcium 9.2 Microbiology Microbiology Results: Microbiology 01/29/21 19:00 Blood - Venous Blood Culture - Preliminary No growth after 24 hours. 01/29/21 19:00 Blood - Venous Blood Culture - Preliminary No growth after 24 hours.
[2021-01-31 15:15] LABS: Ammonia 21 umol/L (13-55)
[2021-01-31 15:29] VITALS: BP 156/67; PULSE 105; RESP 15; TEMP 36.6; O2SAT 99
[2021-01-31 16:36] LABS: Glucose, Whole Blood 183 mg/dL (60-115)
--- NOTE | 2021-01-31 18:33 | P.EN_ITS ---
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
--- NOTE | 2021-01-31 18:33 | PM.EVENT ---
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
[2021-01-31 18:39] LABS: Glucose, Whole Blood 182 mg/dL (60-115)
[2021-01-31 19:32] VITALS: BP 151/69; PULSE 101; RESP 18; TEMP 36.1; O2SAT 96
--- NOTE | 2021-01-31 19:37 | PM.EVENT ---
Event Note Date of Service: 02/08/21 Event Note: Left facial droop: Around 6:30 p.m. patient had left facial droop, the hospitalist ordered a CT head-which showed no new changes from the CT scan from the , radiologist also mentioned there is a 3-4 mm midline shift which is unchanged from the prior CT scan. Discussed with Dr. Barrientos-> who mentioned that patient CT scan has the large SUPERINTENDENT SALES infarct; mild swelling is expected no acute intervention needed.
--- NOTE | 2021-01-31 20:17 | PC.NURSE ---
18:15 pt family noticed facial flushing on the left side of face. Nurse assessed and found increased left facial droop. PEERLA, equal grasp, following commands sluggishly. MD notified and Dr. Argueta came to assess pt. Stat CT head ordered and pt transported with RN in bed to ED for CT scan. Did bedside report to next RN and notified of changes. Will continue to assess PT and do neuro checks.
[2021-01-31 21:27] LABS: Glucose, Whole Blood 189 mg/dL (60-115)
--- NOTE | 2021-01-31 22:10 | P.CNPS_ITS ---
History of Present Illness Date of Service: 01/31/2021 Chief Complaint: CVA Reason for Consult: agitation in delirium HPI Narrative: per [facility] 01/31 note: Seen in f/u for confusion and agitated, Patient was discharged from the hospital on 02/28 for issues related to abdominal pain and upon arriving home, EMS noted the patient not making sense? when she was alert earlier, she was noted to be repeating herself over and over again. CT of the head has demonstrate stroke believe to be subacute acute. She was pretty agitated throughout the day yesterday and the night and remains so this morning, with peristent repetition or certain words. on interview with this MD, pt's daughter and niece were at the bedside. pt was responsive to addressing her by name only, unable to answer and other questions. daughter and niece described the interaction as the most cogent she had had since they had arrived. pt was then perseverative, asking, why did i ? repeatedly. no other information or meaningful interaction was able to be had with pt. Past Psychiatric History: unknown Medical Evaluation Reviewed: Yes Personal & Social History: daughter and niece by bedside [facility] Medical History Anxiety Below knee amputation CAD (coronary artery disease) Chronic pain syndrome Depression Gastroparesis History of gastrostomy tube placement History of peptic ulcer disease HTN (hypertension) IDDM (insulin dependent diabetes mellitus) Liver lesion Myocardial infarction Wheelchair bound Surgical History History of back surgery Hx of BKA Family History: unknown Social History: unknown Substance History: user of benzodiazepines, opioids Trauma History: unknown Diagnostics Vital Signs (24Hr): Vital Signs - 24 hr 01/30/21 23:07 01/31/21 03:07 01/31/21 07:01 Temperature 97.5 F 98.0 F 97.6 F Pulse Rate 110 H 67 117 H Respiratory Rate 20 19 18 Blood Pressure 171/67 H 147/56 H 160/73 H Pulse Oximetry 97 97 91 L 01/31/21 11:44 01/31/21 15:29 01/31/21 19:32 Temperature 99.0 F 97.8 F 97 F Pulse Rate 110 H 105 H 101 H Respiratory Rate 20 15 18 Blood Pressure 166/72 H 156/67 H 151/69 H Pulse Oximetry 97 99 96 Body Mass Index 34.9 Labs Results: 01/31/21 08:19 01/31/21 08:19 Labs: Laboratory Results - last 48 hr 01/30/21 01/30/21 01/30/21 03:07 06:34 06:34 WBC 11.6 H RBC 3.58 L Hgb 11.3 L Hct 32.7 L MCV 91.3 MCH 31.6 MCHC 34.6 RDW 12.5 Plt Count 198 MPV 10.8 Immature Gran % (Auto) 0.3 Neut % (Auto) 71.6 Lymph % (Auto) 18.9 L [place] % (Auto) 8.1 Eos % (Auto) 0.9 Baso % (Auto) 0.2 Lymph # (Auto) 2.2 [place] # (Auto) 0.9 Eos # (Auto) 0.1 Baso # (Auto) 0.0 Abs Immat Gran (auto) 0.04 H Absolute Neuts (auto) 8.3 Absolute Nucleated RBC 0.000 Nucleated RBC % (auto) 0.0 Smear Tech's Comments VERIFIED Sodium 140 Potassium 3.8 Chloride 109 H Carbon Dioxide 18 L Anion Gap 17 BUN 14 Creatinine 1.09 Estim Creat Clear Calc 62.6 Estimated GFR 51 POC Glucose 189 H Random Glucose 316 H Calcium 9.0 Ammonia Triglycerides 215 Cholesterol 151 LDL Cholesterol, Calc 82 HDL Cholesterol 26 01/30/21 01/30/21 01/30/21 08:37 11:34 14:28 WBC RBC Hgb Hct MCV MCH MCHC RDW Plt Count MPV Immature Gran % (Auto) Neut % (Auto) Lymph % (Auto) [place] % (Auto) Eos % (Auto) Baso % (Auto) Lymph # (Auto) [place] # (Auto) Eos # (Auto) Baso # (Auto) Abs Immat Gran (auto) Absolute Neuts (auto) Absolute Nucleated RBC Nucleated RBC % (auto) Smear Tech's Comments Sodium Potassium Chloride Carbon Dioxide Anion Gap BUN Creatinine Estim Creat Clear Calc Estimated GFR POC Glucose 278 H 287 H 292 H Random Glucose Calcium Ammonia Triglycerides Cholesterol LDL Cholesterol, Calc HDL Cholesterol 01/30/21 01/30/21 01/30/21 16:53 20:45 22:40 WBC RBC Hgb Hct MCV MCH MCHC RDW Plt Count MPV Immature Gran % (Auto) Neut % (Auto) Lymph % (Auto) [place] % (Auto) Eos % (Auto) Baso % (Auto) Lymph # (Auto) [place] # (Auto) Eos # (Auto) Baso # (Auto) Abs Immat Gran (auto) Absolute Neuts (auto) Absolute Nucleated RBC Nucleated RBC % (auto) Smear Tech's Comments Sodium Potassium Chloride Carbon Dioxide Anion Gap BUN Creatinine Estim Creat Clear Calc Estimated GFR POC Glucose 314 H 223 H 196 H Random Glucose Calcium Ammonia Triglycerides Cholesterol LDL Cholesterol, Calc HDL Cholesterol 01/31/21 01/31/21 01/31/21 07:08 08:19 08:19 WBC 10.7 RBC 3.59 L Hgb 11.1 L Hct 32.6 L MCV 90.8 MCH 30.9 MCHC 34.0 RDW 12.8 Plt Count 209 MPV 10.7 Immature Gran % (Auto) Neut % (Auto) Lymph % (Auto) [place] % (Auto) Eos % (Auto) Baso % (Auto) Lymph # (Auto) [place] # (Auto) Eos # (Auto) Baso # (Auto) Abs Immat Gran (auto) Absolute Neuts (auto) Absolute Nucleated RBC 0.000 Nucleated RBC % (auto) 0.0 Smear Tech's Comments Sodium 145 Potassium 4.3 Chloride 111 H Carbon Dioxide 16 L Anion Gap 22 H BUN 11 Creatinine 0.96 Estim Creat Clear Calc 71.1 Estimated GFR 59 POC Glucose 282 H Random Glucose 339 H Calcium 9.2 Ammonia Triglycerides Cholesterol LDL Cholesterol, Calc HDL Cholesterol 01/31/21 01/31/21 01/31/21 11:27 14:55 16:16 WBC RBC Hgb Hct MCV MCH MCHC RDW Plt Count MPV Immature Gran % (Auto) Neut % (Auto) Lymph % (Auto) [place] % (Auto) Eos % (Auto) Baso % (Auto) Lymph # (Auto) [place] # (Auto) Eos # (Auto) Baso # (Auto) Abs Immat Gran (auto) Absolute Neuts (auto) Absolute Nucleated RBC Nucleated RBC % (auto) Smear Tech's Comments Sodium Potassium Chloride Carbon Dioxide Anion Gap BUN Creatinine Estim Creat Clear Calc Estimated GFR POC Glucose 230 H 183 H Random Glucose Calcium Ammonia 21 Triglycerides Cholesterol LDL Cholesterol, Calc HDL Cholesterol 01/31/21 01/31/21 18:33 21:21 WBC RBC Hgb Hct MCV MCH MCHC RDW Plt Count MPV Immature Gran % (Auto) Neut % (Auto) Lymph % (Auto) [place] % (Auto) Eos % (Auto) Baso % (Auto) Lymph # (Auto) [place] # (Auto) Eos # (Auto) Baso # (Auto) Abs Immat Gran (auto) Absolute Neuts (auto) Absolute Nucleated RBC Nucleated RBC % (auto) Smear Tech's Comments Sodium Potassium Chloride Carbon Dioxide Anion Gap BUN Creatinine Estim Creat Clear Calc Estimated GFR POC Glucose 182 H 189 H Random Glucose Calcium Ammonia Triglycerides Cholesterol LDL Cholesterol, Calc HDL Cholesterol Imaging Radiology Impressions: ITS Impressions Chest X-Ray 01/29/21 16:17 IMPRESSION: No acute disease. Head CT 01/29/21 16:17 IMPRESSION: Left STREET [employer]EE[employer]PER[employer] territory infarct. This is new from 11/10/2020 and likely subacute given the extent of hypoattenuation of the parenchyma. This critical result was discussed with CHRISTOFER Mendoza, by telephone at 01/29/2021 6:35 PM and it was ascertained that the content and urgency of the report was understood at the time of direct communication. Head CT 01/31/21 19:04 IMPRESSION: No significant interval change demonstrating left STREET SWEE[employer]PER[employer] territory infarct. No hemorrhagic conversion. Very subtle 3-4 mm rightward midline shift, unchanged. This critical result was discussed with Dr. Malone at 7:21 PM hours on 01/31/2021. It was ascertained that the content and urgency of the report was understood at the time of direct communication. Mental Status Exam Mental Status Exam Narrative: delirious. able to respond when her name was used, otherwise perseverative: why did i ? repeating the same phrase repeatedly. Medications Medications Current Medications Acetaminophen (Acetaminophen 325 Mg Tablet) 650 mg PO Q6H PRN PRN Reason: Pain, Mild (Pain Scale 1-3) Amitriptyline HCl (Amitriptyline Hcl 50 Mg Tablet) 50 mg PO BEDTIME [facility] Last Admin: 01/31/21 20:54 Dose: Not Given Documented by: Aspirin (Aspirin Enteric Coated 81 Mg Tablet.Dr) 81 mg PO DAILY [facility] Last Admin: 01/31/21 11:04 Dose: Not Given Documented by: Aspirin (Aspirin 300 Mg Supp.Rect) 300 mg [place] DAILY [facility] Last Admin: 01/31/21 11:07 Dose: Not Given Documented by: Atorvastatin Calcium (Atorvastatin Calcium 80 Mg Tablet) 80 mg PO BEDTIME [facility] Last Admin: 01/31/21 20:55 Dose: Not Given Documented by: Dextrose (Dextrose 50 % 25 Gm/50 Ml Vial) 25 gm IVPUSH Q15M PRN; Protocol PRN Reason: per Hypoglycemia Standing Ord. Enoxaparin Sodium (Enoxaparin Sodium 40 Mg/0.4 Ml Syringe) 40 mg SUBCUT Q24H [facility] Last Admin: 01/31/21 12:21 Dose: 40 mg Documented by: Gabapentin (Gabapentin 300 Mg Capsule) 600 mg PO TID [facility] Last Admin: 01/31/21 20:55 Dose: Not Given Documented by: Glucose (Glucose Gel 15 Gm Gel..Gram.) 15 gm PO Q15M PRN; Protocol PRN Reason: per Hypoglycemia Standing Ord. Haloperidol Lactate (Haloperidol Lactate 5 Mg/Ml Vial) 2 mg IM Q4H PRN PRN Reason: Delirium Hydromorphone HCl (Hydromorphone Hcl 1 Mg/Ml Syringe) 1 mg IVPUSH Q4H PRN; Protocol PRN Reason: Pain, Severe (Pain Scale 7-10) Last Admin: 01/31/21 21:54 Dose: 1 mg Documented by: Lactated Ringer's (Lr) 1,000 mls @ 80 mls/hr IVCONT .[id number] [facility] Last Infusion: 01/31/21 22:09 Dose: 0 mls/hr Documented by: Promethazine HCl 12.5 mg/ (Sodium Chloride) 50.5 mls @ 202 mls/hr IV Q4H PRN PRN Reason: Nausea and Vomiting Insulin Human Lispro (Insulin Lispro 100 Unit/Ml 3 Ml Vial) 0 unit SUBCUT QIDACHS [facility]; Protocol Last Admin: 01/31/21 22:05 Dose: Not Given Documented by: Isosorbide Mononitrate (Isosorbide Mononitrate 30 Mg Tab.Er.24h) 30 mg PO DAILY [facility]; Protocol Last Admin: 01/31/21 11:06 Dose: Not Given Documented by: Lorazepam (Lorazepam 2 Mg/Ml Vial) 1 mg IVPUSH Q4H PRN PRN Reason: Anxiety Last Admin: 01/31/21 10:15 Dose: 1 mg Documented by: Lorazepam (Lorazepam 2 Mg/Ml Vial) 2 mg IVPUSH TID [facility] Last Admin: 01/31/21 21:03 Dose: 2 mg Documented by: Metoprolol Succinate (Metoprolol Succinate Er 100 Mg Tab.Er.24h) 100 mg PO BID [facility]; Protocol Last Admin: 01/31/21 21:14 Dose: Not Given Documented by: Niacin (Niacin Er 250 Mg Tablet.Er) 1,000 mg PO BEDTIME [facility] Last Admin: 01/31/21 21:14 Dose: Not Given Documented by: Omeprazole (Omeprazole 20 Mg Capsule.Dr) 20 mg PO BID@0630,1630 [facility] Last Admin: 01/31/21 17:09 Dose: Not Given Documented by: Pharmacy Consult (Consult Rx Perform Med Rec) 1 each MISCELLANE ONCE PRN PRN Reason: Consult order Sodium Chloride (0.9 % Sodium Chloride Flush 3 Ml Syringe) 3 ml IVFLUSH QSHIFT [facility] Last Admin: 01/31/21 15:39 Dose: 3 ml Documented by: Topiramate (Topiramate 100 Mg Tablet) 100 mg PO BID [facility] Last Admin: 01/31/21 21:15 Dose: Not Given Documented by: Allergies Allergies Allergy/AdvReac Type Severity Reaction Status Date / Time Penicillins [PENICILLINS] Allergy Mild HIVES Verified 05/25/20 04:33 clarithromycin [From Biaxin] Allergy Unknown HIVES Verified 05/25/20 04:33 penicillin V Allergy Unknown rash, Verified 05/25/20 04:33 throat tight bioxin Allergy Unknown Unknown Uncoded 05/25/20 04:33 penicillin Allergy Unknown Unknown Uncoded 05/25/20 04:33 Assessment & Plan Assessment & Plan (1) Delirium due to another medical condition: Status: Acute Code(s): F05 - Delirium due to known physiological condition Assessment and Plan: delirium likely due to stroke. address underlying medical problem and address behavioral emergencies with haldol 2-5 mg and atoivan 1 mg PRN. be sure pt has had enough benzi so as not to be in benzo withdrawal. I spent minutes with the patient and/or on the patient floor today, greater than?50% of which was spent counseling/coordinating care.
[2021-01-31 23:39] VITALS: BP 138/64; PULSE 96; RESP 20; TEMP 37.1; O2SAT 96
[2021-02-01] MEDS: Haloperidol Lactate 5 MG/ML VIAL 2 MG IM ×2 (00:59→05:36)
[2021-02-01 03:26] VITALS: BP 138/89; PULSE 112; RESP 20; TEMP 36.9; O2SAT 98
[2021-02-01] MEDS: HYDROmorphone HCl 1 MG/ML SYRINGE IVPUSH ×4 (03:32→18:09)
--- NOTE | 2021-02-01 04:48 | PC.NURSE ---
CARE ASSUMED 23:15..AWAKE...AGITATED...CALLING OUT AND/OR MOANING..RESTLESS IN BED...CARRERO..SPEECH REMAINS GARBLED/INCOMPREHENSIBLE...REMAINS WITH ?LEFT FACIAL DROOP...MEDICATED PRN HALDOL 1AM FOR AGITATION,...RESTFUL X2 HOURS..AWAKE..AGITATED 03:30..CARRERO..MOANING...PUPILS EQUAL..MEDICATED WITH PRN DILAUDID FOR ?PAIN...RESTFUL WITHIN 5 ...REMAINS AWAKE BUT CALMER...NSR..NO ECTOPY...PINEDA SARAI URINE
[2021-02-01 07:18] VITALS: BP 134/86; PULSE 109; RESP 20; TEMP 36; O2SAT 97
[2021-02-01 07:20] LABS: Glucose, Whole Blood 234 mg/dL (60-115)
[2021-02-01] MEDS: Insulin Lispro 100 UNIT/ML 3 ML VIAL SUBCUT ×4 (08:15→21:11)
[2021-02-01] MEDS: 0.9 % Sodium Chloride Flush 3 ML SYRINGE IVFLUSH (08:15)
[2021-02-01] MEDS: LORazepam 2 MG/ML VIAL IVPUSH ×3 (08:16→21:11)
--- NOTE | 2021-02-01 09:26 | P.CNUR_ITS ---
History of Present Illness Consult details Consult date: 01/31/21 Narrative: Constanza is a 60-year-old female. Admitted to hospital for change in mental status and management of stroke-like symptoms. Past medical history significant for long-term diabetes with insulin management and significant macrovascular, microvascular and neurologic complications of diabetes including below-knee amputation, gastroparesis, diabetic cystopathy. Current consultation for incomplete bladder emptying Kam catheter in place Incomplete catheter emptying presume secondary to combination of diabetic ur ologic changes to her bladder and in this acute setting stroke related changes to her voiding system. Recommend Kma catheter for the next 3-5 days then may be removed and CIC instituted based on any stroke deficits. Review of Systems Constitutional: Constitutional: Denies chills and Denies fever(s) Cardiovascular: Cardiovascular: Reports no additional cardiovascular complaints and Denies syncope Respiratory: Respiratory: Denies cough Gastrointestinal: Gastrointestinal: Denies abdominal pain and Denies heartburn Genitourinary: Genitourinary: Reports as per HPI and Denies change in libido Neurologic: Reports confusion and Denies syncope Psychiatric: Psychiatric: Denies change in libido and Reports confusion Endocrine: Endocrine: Denies change in libido [facility] Past Medical History Medical History Anxiety Below knee amputation CAD (coronary artery disease) Chronic pain syndrome Depression Gastroparesis History of gastrostomy tube placement History of peptic ulcer disease HTN (hypertension) IDDM (insulin dependent diabetes mellitus) Liver lesion Myocardial infarction Wheelchair bound Family History Family History Father Coronary arteriosclerosis Surgical History Surgical History History of back surgery Hx of BKA Social History Social History Household Members: Unknown / Unable to assess Housing: Unknown / Unable to assess Are you a primary career technical education teacher to a significant other at home: No Do you presently have visiting nurse or other home services: Yes Unable to assess alcohol history related to: Unable to respond Alcohol intake: never Patient Tobacco Use Status: Tobacco use Unknown Second Hand Smoke Exposure: No Use of substances other than those prescribed or required for medical reasons: Unknown Currently Displaying Signs/Symptoms of Drug Intoxication Withdrawal: No Spiritual Healthcare Practices: Unable to respond Advance Directives: Yes Advance Directives on File: Yes Advance Directives Date on File: 05/12/20 Do you have thoughts of harming others: None Do you have a plan to hurt others: No Plan Patient : No service: No Current occupational status: unemployed and disabled Meds Allergies Allergy/AdvReac Type Severity Reaction Status Date / Time Penicillins [PENICILLINS] Allergy Mild HIVES Verified 05/25/20 04:33 clarithromycin [From Biaxin] Allergy Unknown HIVES Verified 05/25/20 04:33 penicillin V Allergy Unknown rash, Verified 05/25/20 04:33 throat tight bioxin Allergy Unknown Unknown Uncoded 05/25/20 04:33 penicillin Allergy Unknown Unknown Uncoded 05/25/20 04:33 Active Medications: Current Medications Acetaminophen (Acetaminophen 325 Mg Tablet) 650 mg PO Q6H PRN PRN Reason: Pain, Mild (Pain Scale 1-3) Amitriptyline HCl (Amitriptyline Hcl 50 Mg Tablet) 50 mg PO BEDTIME [facility] Last Admin: 01/31/21 20:54 Dose: Not Given Documented by: Aspirin (Aspirin Enteric Coated 81 Mg Tablet.Dr) 81 mg PO DAILY [facility] Last Admin: 02/01/21 08:13 Dose: Not Given Documented by: Aspirin (Aspirin 300 Mg Supp.Rect) 300 mg [place] DAILY [facility] Last Admin: 02/01/21 08:13 Dose: Not Given Documented by: Atorvastatin Calcium (Atorvastatin Calcium 80 Mg Tablet) 80 mg PO BEDTIME [facility] Last Admin: 01/31/21 20:55 Dose: Not Given Documented by: Dextrose (Dextrose 50 % 25 Gm/50 Ml Vial) 25 gm IVPUSH Q15M PRN; Protocol PRN Reason: per Hypoglycemia Standing Ord. Enoxaparin Sodium (Enoxaparin Sodium 40 Mg/0.4 Ml Syringe) 40 mg SUBCUT Q24H [facility] Last Admin: 01/31/21 12:21 Dose: 40 mg Documented by: Gabapentin (Gabapentin 300 Mg Capsule) 600 mg PO TID [facility] Last Admin: 02/01/21 08:13 Dose: Not Given Documented by: Glucose (Glucose Gel 15 Gm Gel..Gram.) 15 gm PO Q15M PRN; Protocol PRN Reason: per Hypoglycemia Standing Ord. Haloperidol Lactate (Haloperidol Lactate 5 Mg/Ml Vial) 2 mg IM Q4H PRN PRN Reason: Delirium Last Admin: 02/01/21 05:36 Dose: 2 mg Documented by: Hydromorphone HCl (Hydromorphone Hcl 1 Mg/Ml Syringe) 1 mg IVPUSH Q4H PRN; Protocol PRN Reason: Pain, Severe (Pain Scale 7-10) Last Admin: 02/01/21 08:20 Dose: 1 mg Documented by: Lactated Ringer's (Lr) 1,000 mls @ 80 mls/hr IVCONT .[id number] [facility] Last Infusion: 01/31/21 22:09 Dose: 0 mls/hr Documented by: Promethazine HCl 12.5 mg/ (Sodium Chloride) 50.5 mls @ 202 mls/hr IV Q4H PRN PRN Reason: Nausea and Vomiting Insulin Human Lispro (Insulin Lispro 100 Unit/Ml 3 Ml Vial) 0 unit SUBCUT QIDACHS [facility]; Protocol Last Admin: 02/01/21 08:15 Dose: 4 unit Documented by: Isosorbide Mononitrate (Isosorbide Mononitrate 30 Mg Tab.Er.24h) 30 mg PO DAILY [facility]; Protocol Last Admin: 02/01/21 08:13 Dose: Not Given Documented by: Lorazepam (Lorazepam 2 Mg/Ml Vial) 1 mg IVPUSH Q4H PRN PRN Reason: Anxiety Last Admin: 01/31/21 10:15 Dose: 1 mg Documented by: Lorazepam (Lorazepam 2 Mg/Ml Vial) 2 mg IVPUSH TID [facility] Last Admin: 02/01/21 08:16 Dose: 2 mg Documented by: Metoprolol Succinate (Metoprolol Succinate Er 100 Mg Tab.Er.24h) 100 mg PO BID [facility]; Protocol Last Admin: 02/01/21 08:13 Dose: Not Given Documented by: Niacin (Niacin Er 250 Mg Tablet.Er) 1,000 mg PO BEDTIME [facility] Last Admin: 01/31/21 21:14 Dose: Not Given Documented by: Omeprazole (Omeprazole 20 Mg Capsule.Dr) 20 mg PO BID@0630,1630 [facility] Last Admin: 02/01/21 05:33 Dose: Not Given Documented by: Pharmacy Consult (Consult Rx Perform Med Rec) 1 each MISCELLANE ONCE PRN PRN Reason: Consult order Sodium Chloride (0.9 % Sodium Chloride Flush 3 Ml Syringe) 3 ml IVFLUSH QSHIFT [facility] Last Admin: 02/01/21 08:15 Dose: 3 ml Documented by: Topiramate (Topiramate 100 Mg Tablet) 100 mg PO BID [facility] Last Admin: 02/01/21 08:14 Dose: Not Given Documented by: Home Medications Medication Instructions Recorded Confirmed Last Taken Type alprazolam 1 mg tablet (Xanax) 1 mg PO TID 04/10/20 01/29/21 01/29/21 History zapadfoaxa-[id number] 1 tab PO TID PRN 04/10/20 01/29/21 01/29/21 History 50 mg-325 mg-40 mg tablet promethazine 25 mg tablet 25 mg PO TID PRN 04/10/20 01/29/21 01/28/21 History amitriptyline 50 mg tablet 50 mg PO BEDTIME 05/12/20 01/29/21 01/28/21 History aspirin 81 mg tablet,delayed 81 mg PO DAILY 05/12/20 01/29/21 01/29/21 History release atorvastatin 80 mg tablet 80 mg PO BEDTIME 05/12/20 01/29/21 01/28/21 History insulin regular hum U-500 conc 500 200 unit SUBCUT BEDTIME 05/12/20 01/29/21 01/29/21 History unit/mL subcutaneous soln (Humulin R U-500 (Concentrated) Insulin) insulin regular hum U-500 conc 500 250 unit SUBCUT QAM 05/12/20 01/29/21 01/29/21 History unit/mL subcutaneous soln (Humulin R U-500 (Concentrated) Insulin) isosorbide mononitrate 30 mg 30 mg PO DAILY 05/12/20 01/29/21 01/29/21 History tablet,extended release 24 hr losartan 100 mg tablet 100 mg PO DAILY 05/12/20 01/29/21 01/29/21 History metoclopramide HCl 10 mg tablet 10 mg PO Q6H PRN 05/12/20 01/29/21 01/28/21 History metoprolol succinate 100 mg 100 mg PO BID 05/12/20 01/29/21 01/29/21 History tablet,extended release 24 hr niacin 1,000 mg tablet,extended 1,000 mg PO BEDTIME 05/12/20 01/29/21 01/28/21 History release 24 hr omeprazole 20 mg capsule,delayed 20 mg PO BID 05/12/20 01/29/21 01/27/21 History release polyethylene glycol 3350 17 17 g PO DAILY PRN 05/12/20 01/29/21 01/29/21 History gram/dose oral powder (Miralax) topiramate 100 mg tablet 100 mg PO BID 05/12/20 01/29/21 01/29/21 History gabapentin 300 mg capsule 600 mg PO TID 01/26/21 01/29/21 01/29/21 History hydromorphone 4 mg tablet 2 mg PO QID 01/26/21 01/29/21 01/29/21 History Physical Exam Vital Signs: Vital Signs: Last Vital Signs Temp 96.8 F 02/01/21 07:18 Pulse 109 H 02/01/21 07:18 Resp 20 02/01/21 07:18 BP 134/86 02/01/21 07:18 Pulse Ox 97 02/01/21 07:18 Body Mass Index 34.9 Const: General: awake, confusion, lethargic and tired appearing Orientat ion/consciousness: confusion and lethargic Limitations: altered mental status, wheelchair and other limitations HENMT: Face and sinus: Yes normal facial exam Mouth: moist mucous membranes Neck: Neck: Yes normal visual inspection, Yes full ROM and Yes trachea midline Chest: Chest palpation & inspection: normal inspection of the chest Resp: Effort & Inspection: normal respiratory effort, able to speak in complete sentences and no respiratory distress GI: Inspection: Yes normal to inspection Back/Spine/Pelvis: Cervical Spine: normal cervical lordosis Thoracic/Lumbar Spine: thoracic and lumbar spine normal to inspection Skin: General skin exam: no rashes or lesions noted Neuro: General: moves all extremities and confusion Extrem: General: Yes normal to inspection and Yes capillary refill normal Results Labs Result diagrams: 01/31/21 08:19 01/31/21 08:19 Labs: Abnormal lab results 01/31/21 01/31/21 01/31/21 Range/Units 11:27 16:16 18:33 POC Glucose 230 H 183 H 182 H (60-115) mg/dL 01/31/21 02/01/21 Range/Units 21:21 07:12 POC Glucose 189 H 234 H (60-115) mg/dL Urine 01/29/21 Range/Units 21:01 Urine Color YELLOW Urine Appearance HAZY Urine pH 6.0 (5.0-8.0) Ur Specific [place] 1.010 (1.005-1.025) Urine Protein NEG (NEG-TRACE) MG/DL Urine Glucose (UA) NEG (NEG) MG/DL All other labs normal. Assessment and Plan (1) Hypotonic neurogenic bladder: Status: Acute (2) Diabetic neuropathy associated with diabetes mellitus due to underlying condition: Status: Acute Kam catheter for 3-5 days. If mental status resolves then can remove and moved to prompted voiding Procedures Date of Service Date of Service: 01/31/21
--- NOTE | 2021-02-01 09:45 | HO.PM.IMPN ---
Subjective Subjective Date of Service: 02/01/21 Interval History: Seen in f/u for confusion and agitated, Patient was discharged from the hospital on 02/28 for issues related to abdominal pain and upon arriving home, EMS noted the patient not making sense when she was alert earlier, she was noted to be repeating herself over and over again. CT of the head has demonstrate stroke believe to be subacute acute. She continues to be very agitated throughout the night and required ativan, haldol and narcc to calm her. She reportedly had left facial droop last night and had another CT of head but there was no change Review of Systems Review of Systems: Yes Unobtainable due to mental status Physical Exam Vital Signs: Vital Signs: Last Vital Signs Temp 96.8 F 02/01/21 07:18 Pulse 109 H 02/01/21 07:18 Resp 20 02/01/21 07:18 BP 134/86 02/01/21 07:18 Pulse Ox 97 02/01/21 07:18 Body Mass Index 34.9 Const: Other: General: Presently somnolent, easily aroused and becomes agitate Resp: CTA bilateral CVS: S1,S2,RRR GI: no sing of tenderness, bowel sounds present Skin: No rash, redness around left heel, crhonic, BKA of the right Neuro: motor fuction appear intact as she moves all extremties spontaneously--exam is limitted as patient is not able to follow commands, Her face was symetric Psych: confusion, so difficult to assess Objective Data Active Medications Acetaminophen (Acetaminophen 325 Mg Tablet) 650 mg PO Q6H PRN PRN Reason: Pain, Mild (Pain Scale 1-3) Amitriptyline HCl (Amitriptyline Hcl 50 Mg Tablet) 50 mg PO BEDTIME [facility] Last Admin: 01/31/21 20:54 Dose: Not Given Documented by: SANTO Non-Admin Reason: NPO Aspirin (Aspirin Enteric Coated 81 Mg Tablet.Dr) 81 mg PO DAILY [facility] Last Admin: 02/01/21 08:13 Dose: Not Given Documented by: NIKHIL Non-Admin Reason: NPO Aspirin (Aspirin 300 Mg Supp.Rect) 300 mg ID DAILY [facility] Last Admin: 02/01/21 08:13 Dose: Not Given Documented by: NIKHIL Non-Admin Reason: NPO Atorvastatin Calcium (Atorvastatin Calcium 80 Mg Tablet) 80 mg PO BEDTIME [facility] Last Admin: 01/31/21 20:55 Dose: Not Given Documented by: SANTO Non-Admin Reason: NPO Dextrose (Dextrose 50 % 25 Gm/50 Ml Vial) 25 gm IVPUSH Q15M PRN; Protocol PRN Reason: per Hypoglycemia Standing Ord. Enoxaparin Sodium (Enoxaparin Sodium 40 Mg/0.4 Ml Syringe) 40 mg SUBCUT Q24H [facility] Last Admin: 01/31/21 12:21 Dose: 40 mg Documented by: ODALYS Gabapentin (Gabapentin 300 Mg Capsule) 600 mg PO TID [facility] Last Admin: 02/01/21 08:13 Dose: Not Given Documented by: NIKHIL Non-Admin Reason: NPO Glucose (Glucose Gel 15 Gm Gel..Gram.) 15 gm PO Q15M PRN; Protocol PRN Reason: per Hypoglycemia Standing Ord. Haloperidol Lactate (Haloperidol Lactate 5 Mg/Ml Vial) 2 mg IM Q4H PRN PRN Reason: Delirium Last Admin: 02/01/21 05:36 Dose: 2 mg Documented by: WHITNEY Hydromorphone HCl (Hydromorphone Hcl 1 Mg/Ml Syringe) 1 mg IVPUSH Q4H PRN; Protocol PRN Reason: Pain, Severe (Pain Scale 7-10) Last Admin: 02/01/21 08:20 Dose: 1 mg Documented by: NIKHIL Lactated Ringer's (Lr) 1,000 mls @ 80 mls/hr IVCONT .[id number] [facility] Last Infusion: 01/31/21 22:09 Dose: 0 mls/hr Documented by: SANTO Promethazine HCl 12.5 mg/ (Sodium Chloride) 50.5 mls @ 202 mls/hr IV Q4H PRN PRN Reason: Nausea and Vomiting Insulin Human Lispro (Insulin Lispro 100 Unit/Ml 3 Ml Vial) 0 unit SUBCUT QIDACHS [facility]; Protocol Last Admin: 02/01/21 08:15 Dose: 4 unit Documented by: NIKHIL Isosorbide Mononitrate (Isosorbide Mononitrate 30 Mg Tab.Er.24h) 30 mg PO DAILY [facility]; Protocol Last Admin: 02/01/21 08:13 Dose: Not Given Documented by: NIKHIL Non-Admin Reason: NPO Lorazepam (Lorazepam 2 Mg/Ml Vial) 1 mg IVPUSH Q4H PRN PRN Reason: Anxiety Last Admin: 01/31/21 10:15 Dose: 1 mg Documented by: ODALYS Lorazepam (Lorazepam 2 Mg/Ml Vial) 2 mg IVPUSH TID [facility] Last Admin: 02/01/21 08:16 Dose: 2 mg Documented by: NIKHIL Metoprolol Succinate (Metoprolol Succinate Er 100 Mg Tab.Er.24h) 100 mg PO BID [facility]; Protocol Last Admin: 02/01/21 08:13 Dose: Not Given Documented by: NIKHIL Non-Admin Reason: NPO Niacin (Niacin Er 250 Mg Tablet.Er) 1,000 mg PO BEDTIME [facility] Last Admin: 01/31/21 21:14 Dose: Not Given Documented by: SANTO Non-Admin Reason: NPO Omeprazole (Omeprazole 20 Mg Capsule.Dr) 20 mg PO BID@0630,1630 [facility] Last Admin: 02/01/21 05:33 Dose: Not Given Documented by: WHITNEY Non-Admin Reason: NPO Pharmacy Consult (Consult Rx Perform Med Rec) 1 each MISCELLANE ONCE PRN PRN Reason: Consult order Sodium Chloride (0.9 % Sodium Chloride Flush 3 Ml Syringe) 3 ml IVFLUSH QSHIFT [facility] Last Admin: 02/01/21 08:15 Dose: 3 ml Documented by: NIKHIL Topiramate (Topiramate 100 Mg Tablet) 100 mg PO BID [facility] Last Admin: 02/01/21 08:14 Dose: Not Given Documented by: NIKHIL Non-Admin Reason: NPO Labs CBC & Chem 7: 01/31/21 08:19 01/31/21 08:19 Labs: Laboratory Results - last 24 hr 01/31/21 01/31/21 01/31/21 11:27 14:55 16:16 POC Glucose 230 H 183 H Ammonia 21 01/31/21 01/31/21 02/01/21 18:33 21:21 07:12 POC Glucose 182 H 189 H 234 H Ammonia Microbiology Microbiology Results: Microbiology 01/29/21 19:00 Blood Culture - Preliminary Blood - Venous No growth after 48 hours. 01/29/21 19:00 Blood Culture - Preliminary Blood - Venous No growth after 48 hours. Assessment and Plan (1) Delirium due to another medical condition: Status: Acute Assessment and Plan: ? 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 Noted to have CVA on CT head.? Admitted for further management. #Confusion/agitation--likely multifactorial, concern for opioid and benzo withdrawal, seizure cannot be excluded, she is on high amount of opioid and Xanax at home and has not received any since yesterday--Continue Dilaudid IV and Ativan (in place of home xanax) and clonidine in the event of withdrawal, EEG maybe helpful when feasible. Psych has seen her and recommend Haldol 1 to 5 and ativan 1 (however) will give up to 2 mg of ativan equivalent of home Xanax #Subacute stroke in ACTIVITY THERAPY TEACHER territory--manifestation right now confusion and agitated which is rather acute. Ideally should have MRI for further investigation but patient will not tolerate MRI given extreme agitation and restlness. Still waiting on Neurology to further evaluation and recommendation. ID aspirin for as not able to take PO, once able take PO will add Statin, BP meds. Will PT, OT and speech eval. MRI (wehn able to laid henrry calm) also not sure if can be done give history gastric implantable device. Will get CTA of head and neck today #Urinary retention:? Kam in, Seen by Dr. Osorio and radha to remain in for now #History of chronic abdominal pain/diabetic gastroparesis:? Supportive care.? Patient to follow-up with gastroenterology as outpatient for further management.? Patient is on dilaudid at home, Give IV dilaudid and IV ativan in place of Xanax #History of diabetes:? While NPO, Sliding, IVF #Hypertension:?Hold meds for now #Left heel has hyperemia/skin changes:? Monitor for pressure ulcer, standard pressure ulcer care #Diet:?NPO, for now I spoke to patient's daughter (HCP) and Niece in person and discuss CT finding, possibilities of what is ongoing including possible seizure, late effect of subacute stroke, we discussed further study such as MRI and EEG when she able to participate. Niece did relay speaking to her on thrusday and she was clear, daughter does say she she has periods of confusions at home but nothing like this, finally we discussed code status and they believe she would not want to be hooked up to machines but not firm committment for code change at this time. Quality Stroke Does the patient have a stroke diagnosis?: No VTE Prior VTE?: No VTE Risk Level:: Medical - low VTE Device Contraindication: Treatment Not Indicated VTE Drug Contraindication: N/A - Med Ordered
[2021-02-01 11:19] VITALS: BP 146/67; PULSE 99; RESP 18; TEMP 37.2; O2SAT 98
[2021-02-01 11:21] LABS: Glucose, Whole Blood 251 mg/dL (60-115)
[2021-02-01] MEDS: Enoxaparin Sodium 40 MG/0.4 ML SYRINGE SUBCUT (12:01)
--- NOTE | 2021-02-01 12:06 | MHC.STROKE ---
Addendum entered by Akua Toro RN 02/03/21 15:33: I CHECKED IN WITH THE DAUGHTER ASHLEY EARLIER TODAY, I PROVIDED HER SUPPORT, ANSWERED HER QUESTIONS. THE PATIENT WAS RESTING BUT LAST NIGHT THE PATIENT DID RECOGNIZE FAMILY MEMBERS, SHE IS ABLE TO TAKE CLEAR LIQUIDS. I WILL CONTINUE TO FOLLOW. Addendum entered by Akua Toro RN 02/01/21 14:57: I MET WITH THE DAUGHTER ASHLEY AND NIECE TO DISCUSS HER MOM'S CASE. I REVIEWED THE PLAN OF CARE, RISK FACTORS FOR STROKE, LOCATION AND SYMPTOMS OF A STROKE IN THIS AREA OF THE BRAIN. I REVIEWED THE STROKE EDUCATION BOOKLET AND POWER POINT SLIDES. I ANSWERED ALL OF THEIR QUESTIONS, I SPENT 50 MINUTES WITH THEM REVIEWING THE PLAN OF CARE. THEY EXPRESSED THAT THE PATIENT WOULD NOT WANT ANY TUBE OR WANT TO LIVE LIKE THIS BEING UNABLE TO COMMUNICATE. SHE IS STILL NPO AND QUIET AT THIS TIME. IT WILL BE A DAY BY DAY EVALUATION. I DID RELAY THIS INFORMATION TO THE NURSE AND DR ULRICH. I AM AVAILABLE IF THEY SHOULD NEED ME. Original Note: 01/29/21 1551 EMS NOTIFIED ED PATIENT WITH MENTAL STATUS CHANGES DIFFERENT FROM BASELINE. ARRIVED 1601. PATIENT WAS JUST DISCHARGED FROM MEDICAL FLOOR AT 1515. ED PROVIDER EXAMINED PATIENT SEE NOTE, NIHSS = 4.PATIENT HAS APHASIA AND LOC. CT HEAD REVEALED A SUB-ACUTE LEFT PARIETAL STROKE. UNKNOWN ONSET, ALTHOUGH AFTER REVIEWING THE PREVIOUS MEDICAL RECORD ON 01/27/21 IS WAS DOCUMENTED THAT SHE WAS REFUSING MEDS AND CERTAIN TREATMENTS, SHE DID NOT WANT TO EAT. ON 01/29/21 IS WAS DOCUMENTED THAT SHE WAS DROWSY BUT ONSET IS STILL UNKNOWN. SHE HAS A GASTRIC NEURO-STIMULATOR AND CANNOT HAVE AN MRI, CTA H/N WAS ORDERED BUT SHE IS TOO RESTLESS AND THE SCAN WOULD HAVE MOTION DEGRADING IMAGES. AT THIS TIME THE CTA IS ON HOLD. I DID DISCUSS THIS WITH DR. SERG RN, AND DR ARGUETA.? HER PROGNOSIS FOR A STROKE IN THIS LOCATION IS NOT GOOD FOR RECOVERING HER ABILITY TO COMMUNICATE AFFLICTIVELY, ACCORDING TO DR ARGUETA. I DID INITIATE STROKE EDUCATION WITH HER BROTHER MADELEINE AND HER COTA. I REVIEWED THE STROKE EDUCATION BOOKLET AND POWER POINT SLIDES. WE DISCUSSED THE LOCATION OF THE STROKE AND THE CORRELATING SYMPTOMS. I ANSWERED ALL OF THEIR QUESTIONS. I WILL FOLLOW UP WITH THE DAUGHTER ASHLEY WELL. SHE HAS BEEN NPO SINCE ARRIVAL. I HAVE BEEN IN COMMUNICATION WITH SPEECH THERAPY DAILY. THE PATIENT WOULD NOT COOPERATE WITH ANY PART OF THE SWALLOW SCREEN. SHE WAS SPITTING OUT THE WATER. TODAY I WAS PRESENT DURING THE INITIAL SPEECH EVAL AND AGAIN THE PATIENT WAS SPITTING OUT THE APPLESAUCE AND WATER AND WOULD NOT COOPERATE. I DID COMMUNICATE THIS TO DR ULRICH. DR ARGUETA SAID THAT SHE SHOULD NOT HAVE DIFFICULTY SWALLOWING PROPERLY BUT SHE MAY NOT FOLLOW INSTRUCTIONS DUE TO HER STROKE LOCATION. IT WILL BE A DAY BY DAY EVALUATION.?
--- NOTE | 2021-02-01 13:01 | MHC.CM.PN ---
per rounds pt will need a pt eval prior to dc
--- NOTE | 2021-02-01 13:54 | MHC.SL.SWA ---
Speech Pathologist Impression: Risk of Aspiration Risk of Aspiration Due to: Poor PO Intake Reduced Cognition Dysphasia Diet Status: No Change Liquid Consistency and Strategies for Safe Swallow: Liquid Intake Recommendation: NPO Liquid Intake Strategies: Solid Food Consistency: Dietary Recommendations: NPO Additional Modifications to Solid Foods: Oral Medication Intake: NPO Compensatory Strategies and Precautions to be Taken for Safe Swallow: Supervision While Eating and Drinking for Safe Swallow: PO with GROUP SALES MANAGER Foods to Avoid: Swallowing Recommended Treatments: Recommendation for Speech: Inpatient Speech Therapy Comment: PT to be followed by GROUP SALES MANAGER for repeat attempts to assess Swallow. GROUP SALES MANAGER to see PT daily (M-F) while inpatient Frequency/Duration: Daily M-F Date Range for Service Req: Timeline to reassess: PRN Dynamic Etching Processor Clinican/Clinical Fellow: No Supervisory Statement: I have reviewed and agree with the student/clinical fellow's documentation: N/A Speech Language Pathologist: Codie Seth M.A., CCC-GROUP SALES MANAGER
[2021-02-01] MEDS: Lactated Ringers 1,000 ML 80 ML IVCONT (14:26)
[2021-02-01 15:15] VITALS: BP 169/75; PULSE 97; RESP 18; TEMP 37; O2SAT 97
[2021-02-01 15:18] VITALS: BMI 34.9
[2021-02-01 16:28] LABS: Glucose, Whole Blood 193 mg/dL (60-115)
[2021-02-01 19:17] VITALS: BP 171/76; PULSE 89; RESP 18; TEMP 36.6; O2SAT 97
[2021-02-01 20:43] LABS: Glucose, Whole Blood 189 mg/dL (60-115)
[2021-02-01 23:17] VITALS: BP 180/90; PULSE 101; RESP 18; TEMP 36.4; O2SAT 98
[2021-02-02] VITALS (8 sets, daily range): BP systolic 153–190; BP diastolic 70–90; PULSE 80–109; RESP 15–20; TEMP 35.7–36.9; O2SAT 93–100
[2021-02-02] MEDS: HYDROmorphone HCl 1 MG/ML SYRINGE IVPUSH ×5 (01:06→17:33)
[2021-02-02] MEDS: Lactated Ringers 1,000 ML 80 ML IVCONT (01:07)
[2021-02-02] MEDS: 0.9 % Sodium Chloride Flush 3 ML SYRINGE IVFLUSH (01:13)
[2021-02-02 07:40] LABS: Glucose, Whole Blood 259 mg/dL (60-115)
[2021-02-02] MEDS: LORazepam 2 MG/ML VIAL IVPUSH ×3 (07:40→21:12)
[2021-02-02] MEDS: Insulin Lispro 100 UNIT/ML 3 ML VIAL SUBCUT ×4 (08:21→21:12)
--- NOTE | 2021-02-02 10:01 | MHC.SLORD ---
Speech Language Pathology Order Status: TREE TRIMMER attempted to see patient this morning for dysphagia treatment. However, RN reports patient was given Ativan and may not be appropriate for PO trials. TREE TRIMMER checked in on patient with RN and patient was sleeping/very lethargic. Please contact TREE TRIMMER via [place] Message or ext. [phone] if patient becomes more awake and alert. Otherwise, plan to re-assess patient tomorrow morning.
[2021-02-02 11:17] LABS: Glucose, Whole Blood 195 mg/dL (60-115)
--- NOTE | 2021-02-02 11:19 | MHC.CLN ---
Addendum entered by Domitila Bal RD 02/02/21 14:38: AGREE WITH PROVIDER'S ASSESSMENT BELOW Original Note: F/U PT IS CURRENTLY DAY 4 NPO PT WILL START PPN DISCUSSED WITH MD AND PHARMACY PPN RECOMMENDATION: DAY ONE (02/02/21): D10AA4.25% AT 40 ML/HOUR TO PROVIDE 490 KCALS AND 41 GRAMS PROTEIN REPLETE LYTES DISCUSSED WITH PHARMACY DAY TWO(02/03/21): D10AA4.25% AT 60 ML/HOUR TO PROVIDE 734 KCALS AND 61 GRAMS PROTEIN REPLETE LYTES, CHECK TRIGS DAY THREE (02/04/21): D10AA4.25% AT 80 ML/HOUR TO PROVIDE 979 KCALS AND 82 GRAMS PROTEIN MONITOR LYTES
[2021-02-02] MEDS: Enoxaparin Sodium 40 MG/0.4 ML SYRINGE SUBCUT (11:50)
[2021-02-02 12:55] LABS: Anion Gap 18 (12-20); Blood Urea Nitrogen 12 mg/dL (9-16); Calcium 9.6 mg/dL (8.4-10.2); Carbon Dioxide 24 mmol/L (22-29); Chloride 108 mmol/L (96-108); Creatinine Clr Calc Pharmacy 82.2; Estimated Glomerular Filt Rate > 60; Glucose Random 243 mg/dL (60-115); Potassium 3.2 mmol/L (3.3-5.1); Sodium 147 mmol/L (135-145)
[2021-02-02 13:06] LABS: Magnesium 1.7 mg/dL (1.6-2.6); Phosphorus 2.6 mg/dL (2.7-4.5); Triglycerides 150 mg/dL
--- NOTE | 2021-02-02 13:58 | PC.NURSE ---
Patient pulled out her garcia, Dr. Gallardo order to placed another one. New garcia placed, draining yellow urine, patient tolerated procedure well.
--- NOTE | 2021-02-02 15:44 | MHC.SL.SWA ---
Speech Pathologist Impression: Risk of Aspiration Risk of Aspiration Due to: Poor PO Intake Reduced Cognition Dysphasia Diet Status: No Change Liquid Consistency and Strategies for Safe Swallow: Liquid Intake Recommendation: NPO Liquid Intake Strategies: Solid Food Consistency: Dietary Recommendations: NPO Additional Modifications to Solid Foods: Oral Medication Intake: NPO Compensatory Strategies and Precautions to be Taken for Safe Swallow: Supervision While Eating and Drinking for Safe Swallow: PO with HEAD ANIMAL TRAINER Foods to Avoid: Swallowing Recommended Treatments: Recommendation for Speech: Inpatient Speech Therapy Comment: PT seen to re-assess swallow, tolerated thin liquid (water) by spoon and small cup sips with no signs of aspiration. Pt refused/spat out all other consistencies, unable to completely assess swallow function. HEAD ANIMAL TRAINER will continue to attempt Swallow Evaluation daily. notified that Pt can take thin liquid therapeutically with close supervision. Note: Pt infrequently demonstrated contingent responses to questions, which is improvement from 02/01. Pt prefers to be called Stefani. Frequency/Duration: Daily M-F Date Range for Service Req: Timeline to reassess: PRN Cloth Bale Header Clinican/Clinical Fellow: No Supervisory Statement: I have reviewed and agree with the student/clinical fellow's documentation: N/A Speech Language Pathologist: Codie Seth M.A., CCC-HEAD ANIMAL TRAINER
[2021-02-02 16:34] LABS: Glucose, Whole Blood 209 mg/dL (60-115)
--- NOTE | 2021-02-02 17:20 | P.PNIM_ITS ---
Subjective Subjective Date of Service: 02/02/21 Interval History: Being followed for subacute CVA, this morning patient noted to be restless treated with Ativan and Dilaudid, later woke up remain aphasic difficulty expressing herself, did recognize daughter, speech therapy saw patient and recommend thin liquids further recommendation after repeat swallow eval tomorrow. Review of Systems Unable to obtain review of system due to aphasia Physical Exam Vital Signs: Vital Signs: Last Vital Signs Temp 97 F 02/02/21 15:29 Pulse 95 02/02/21 15:29 Resp 15 02/02/21 15:29 BP 158/70 H 02/02/21 15:29 Pulse Ox 93 02/02/21 15:29 Body Mass Index 34.9 General: somnolent, later woke up, was not agitated but remain aphasic Neck no JVD Resp:? CTA bilateral CVS: S1,S2,RRR GI: Abdomen soft, bowel sounds present Skin: No rash, redness around left heel, chronic, BKA of the right Neuro: Symmetric face, motor fuction appear intact as she moves all extremties spontaneously, unable to do complete neuro examination due to aphasia intermittent somnolent Extremities no edema on left Objective Data Active Medications Acetaminophen (Acetaminophen 325 Mg Tablet) 650 mg PO Q6H PRN PRN Reason: Pain, Mild (Pain Scale 1-3) Amitriptyline HCl (Amitriptyline Hcl 50 Mg Tablet) 50 mg PO BEDTIME [facility] Last Admin: 02/01/21 21:00 Dose: Not Given Documented by: ALVARADO Non-Admin Reason: NPO Aspirin (Aspirin Enteric Coated 81 Mg Tablet.Dr) 81 mg PO DAILY [facility] Last Admin: 02/02/21 08:06 Dose: Not Given Documented by: SANTO Non-Admin Reason: NPO Aspirin (Aspirin 300 Mg Supp.Rect) 300 mg [place] DAILY [facility] Last Admin: 02/02/21 08:06 Dose: Not Given Documented by: SANTO Non-Admin Reason: NPO Atorvastatin Calcium (Atorvastatin Calcium 80 Mg Tablet) 80 mg PO BEDTIME [facility] Last Admin: 02/01/21 21:00 Dose: Not Given Documented by: ALVARADO Non-Admin Reason: NPO Dextrose (Dextrose 50 % 25 Gm/50 Ml Vial) 25 gm IVPUSH Q15M PRN; Protocol PRN Reason: per Hypoglycemia Standing Ord. Enoxaparin Sodium (Enoxaparin Sodium 40 Mg/0.4 Ml Syringe) 40 mg SUBCUT Q24H [facility] Last Admin: 02/02/21 11:50 Dose: 40 mg Documented by: SANTO Gabapentin (Gabapentin 300 Mg Capsule) 600 mg PO TID [facility] Last Admin: 02/02/21 14:57 Dose: Not Given Documented by: SANTO Non-Admin Reason: NPO Glucose (Glucose Gel 15 Gm Gel..Gram.) 15 gm PO Q15M PRN; Protocol PRN Reason: per Hypoglycemia Standing Ord. Haloperidol Lactate (Haloperidol Lactate 5 Mg/Ml Vial) 2 mg IM Q4H PRN PRN Reason: Delirium Last Admin: 02/01/21 05:36 Dose: 2 mg Documented by: WHITNEY Hydromorphone HCl (Hydromorphone Hcl 1 Mg/Ml Syringe) 1 mg IVPUSH Q4H PRN; Protocol PRN Reason: Pain, Severe (Pain Scale 7-10) Last Admin: 02/02/21 13:36 Dose: 1 mg Documented by: SANTO Promethazine HCl 12.5 mg/ (Sodium Chloride) 50.5 mls @ 202 mls/hr IV Q4H PRN PRN Reason: Nausea and Vomiting Last Infusion: 02/02/21 12:41 Dose: 0 mls/hr Documented by: SANTO Multivitamins 20 ml/ Trace Metals 2 ml/ Amino Acids/Electrolytes/Dextrose 960 mls @ 40 mls/hr IV DAILY@1800 [facility] Stop: 02/03/21 17:59 Insulin Human Lispro (Insulin Lispro 100 Unit/Ml 3 Ml Vial) 0 unit SUBCUT QIDACHS [facility]; Protocol Last Admin: 02/02/21 11:51 Dose: 4 unit Documented by: SANTO Isosorbide Mononitrate (Isosorbide Mononitrate 30 Mg Tab.Er.24h) 30 mg PO DAILY [facility]; Protocol Last Admin: 02/02/21 08:06 Dose: Not Given Documented by: SANTO Non-Admin Reason: NPO Lorazepam (Lorazepam 2 Mg/Ml Vial) 1 mg IVPUSH Q4H PRN PRN Reason: Anxiety Last Admin: 01/31/21 10:15 Dose: 1 mg Documented by: ODALYS Lorazepam (Lorazepam 2 Mg/Ml Vial) 2 mg IVPUSH TID [facility] Last Admin: 02/02/21 15:00 Dose: 2 mg Documented by: SANTO Metoprolol Succinate (Metoprolol Succinate Er 100 Mg Tab.Er.24h) 100 mg PO BID [facility]; Protocol Last Admin: 02/02/21 08:06 Dose: Not Given Documented by: SANTO Non-Admin Reason: NPO Niacin (Niacin Er 250 Mg Tablet.Er) 1,000 mg PO BEDTIME [facility] Last Admin: 02/01/21 21:01 Dose: Not Given Documented by: ALVARADO Non-Admin Reason: NPO Omeprazole (Omeprazole 20 Mg Capsule.Dr) 20 mg PO BID@0630,1630 [facility] Last Admin: 02/02/21 17:00 Dose: Not Given Documented by: SANTO Non-Admin Reason: NPO Pharmacy Consult (Consult Rx Perform Med Rec) 1 each MISCELLANE ONCE PRN PRN Reason: Consult order Sodium Chloride (0.9 % Sodium Chloride Flush 3 Ml Syringe) 3 ml IVFLUSH QSHIFT [facility] Last Admin: 02/02/21 17:00 Dose: Not Given Documented by: SANTO Non-Admin Reason: IV Running Topiramate (Topiramate 100 Mg Tablet) 100 mg PO BID [facility] Last Admin: 02/02/21 08:07 Dose: Not Given Documented by: SANTO Non-Admin Reason: NPO Labs CBC & Chem 7: 01/31/21 08:19 02/02/21 12:28 Labs: Laboratory Results - last 24 hr 02/01/21 02/02/21 02/02/21 20:40 07:18 11:00 Anion Gap Estim Creat Clear Calc Estimated GFR POC Glucose 189 H 259 H 195 H Random Glucose Calcium Phosphorus Magnesium Triglycerides 02/02/21 02/02/21 12:28 16:22 Anion Gap 18 Estim Creat Clear Calc 82.2 Estimated GFR > 60 POC Glucose 209 H Random Glucose 243 H Calcium 9.6 Phosphorus 2.6 L Magnesium 1.7 Triglycerides 150 Assessment and Plan (1) CVA (cerebral vascular accident): Status: Acute (2) Delirium due to another medical condition: Status: Acute (3) HTN (hypertension): Status: Acute (4) Chronic pain syndrome: Status: Acute (5) Depression: Status: Acute Assessment and Plan: 60-year-old female with a past medical history of hypertension, hyperlipidemia, diabetes, diabetic gastroparesis, anxiety, chronic abdominal pain discharge from the hospital today after being evaluated for acute on chronic abdominal pain- 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 Noted to have CVA on CT head.? Admitted for further management. #Confusion/agitation--likely multifactorial, concern for opioid and benzo withdrawal, seizure cannot be excluded,? she is on high amount of opioid and Xanax at home and has not received since admission Will Continue Dilaudid IV and Ativan (in place of home xanax) and clonidine in the event of withdrawal, EEG maybe helpful when feasible. 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 confusion and agitation Will obtain MRI study , CTA head and neck for further investigation when less agitated and able to tolerate,not sure if MRI can be done given history gastric implantable device Continue aspirin per rectum Will switch to by mouth medications when able to swallow Being followed closely by speech therapy will place on thin liquids PT OT consult once more awake and alert Since NPO for last 4 days will start patient on PPN, less likely to tolerate NG feeding #Urinary retention:? Kam in, Seen by Dr. Osorio and radha to remain in for now #History of chronic abdominal pain/diabetic gastroparesis:? Supportive care.? Patient to follow-up with gastroenterology as outpatient for further management.? Patient is on dilaudid at home,? Give IV dilaudid and IV ativan in place of Xanax #History of diabetes:? While NPO, continue insulin Sliding scale dc IVF #Hypertension:?Hold meds for now #Left heel has hyperemia/skin changes:? Monitor for pressure ulcer, standard pressure ulcer care #Diet:? Clear liquids for now Code status full code DVT prophylaxis with Lovenox Quality Stroke Does the patient have a stroke diagnosis?: No VTE Prior VTE?: No VTE Risk Level:: Medical - low VTE Device Contraindication: Treatment Not Indicated VTE Drug Contraindication: N/A - Med Ordered
--- NOTE | 2021-02-02 18:37 | PC.NURSE ---
TPN ordered for patient, infusion started at 1800 per MD's orders. Confirmed with pharmacy that pump should be set on basic infusion 40ml per hr. Confirmed with ordering provider infusion via peripheral line.
[2021-02-02 20:57] LABS: Glucose, Whole Blood 291 mg/dL (60-115)
[2021-02-03] VITALS (7 sets, daily range): BP systolic 140–171; BP diastolic 60–90; PULSE 72–108; RESP 17–20; TEMP 36.4–37; O2SAT 94–100; BMI 34.9
[2021-02-03] MEDS: HYDROmorphone HCl 1 MG/ML SYRINGE IVPUSH ×4 (00:13→17:38)
[2021-02-03] MEDS: LORazepam 2 MG/ML VIAL 1 MG IVPUSH (03:54)
[2021-02-03 07:12] LABS: Glucose, Whole Blood 323 mg/dL (60-115)
[2021-02-03] MEDS: Insulin Lispro 100 UNIT/ML 3 ML VIAL SUBCUT ×4 (08:16→22:02)
--- NOTE | 2021-02-03 08:30 | CA_ITS ---
INDICATIONS: CVA HT: 5'5 WT: 210 BSA: BP: 134/86 SPECIAL CRIMES INVESTIGATOR: VH STUDY QUALITY: Fair ECG RHYTHM: Sinus CONCLUSION: Normal biventricular systolic function. Elevated filling pressures. No significant valvular or pericardial pathology noted. FINDINGS: Left ventricle: Normal LVEF. 55-60%. Moderate increased wall thickness. No regional wall motion abnormalities. Abormal diastolic function. Impaired relaxation and elevated filling pressures. Right ventricle: In limited views - RV appears normal in size and function. Atria: Both atria are normal in size. Valves: Mtral valve: Moderate mitral annular calcification. No significant stenosis or regurgitation. Aortic valve: Not well visualized. Pulmonic valve: Not well visualized. Tricuspid valve: Not well visualized. Aorta: Normal in size. IVC: not visualized. Pericardium: No pericardial effusion noted. M-MODE/2D MEASUREMENTS: LVd: 3.42 cm LVs: 2.11 cm IVSd: 1.21 cm IVSs: LVPWd: 1.22 cm LVPWs: ASC.Aorata: RVd: AO root: AV Cusp: LVOT: EF%: 61% TAPSE: 2.90 RVSP: 24mmHg Mitral E/A: M V E MED. 4.68 E. LAT 7.83 E/A 0.6 AV Cusps Trileaflet: DOPPLER MEASUREMENTS: AORTIC PP mmHg MFG 6 mmHg VALVE AREA: 2.05 cm2 TRICUSPID: PPG 21 mmHg RA Vol. IVC: LA Vol. 28.4 RVS MTDD
[2021-02-03] MEDS: LORazepam 2 MG/ML VIAL IVPUSH ×3 (08:52→22:03)
[2021-02-03] MEDS: Metoprolol Tartrate 5 MG in 0.9 % Sodium Chloride 50 ML 220 MG IV ×3 (09:00→21:54)
[2021-02-03] MEDS: 0.9 % Sodium Chloride Flush 3 ML SYRINGE IVFLUSH ×2 (09:08→20:01)
--- NOTE | 2021-02-03 09:39 | MHC.CLN ---
Addendum entered by Domitila Bal, GERMAN 02/03/21 13:44: AGREE WITH PROVIDER'S ASSESSMENT BELOW WITH ADDITION: DISCUSSED WITH PHARMACY Original Note: F/U PT UPGRADED TO CLEAR LIQUID DIET PT RECEIVING PPN D10AA4.25% AT 40 ML/HOUR TO PROVIDE 490 KCALS AND 41 GRAMS PROTEIN RECOMMEND INCREASING PPN RATE TO D10AA4.25% AT 60 ML/HOUR TO PROVIDE 734 KCALS AND 61 GRAMS PROTEIN REPLETE LYTES, MONITOR TRIGS
--- NOTE | 2021-02-03 10:22 | MHC.SL.DTX ---
Dysphagia Diet modifications: Last documented Solid diet consistencies: NPO (per RN, diet advanced to clear liquids by MD) Last documented Liquid consistency: Thin Last documented Medication Administration:NPO, medications via IV Changes made to current diet?: No: Unable to assess solid consistency due to pt's continued refusal. Liquid Consistency and Strategies: Liquid Intake Recommendation: Thin Compensatory Strategies for Safe Swallow: No Straws Compensatory Strategies for Safe Swallow(b): Sitting Upright (90 deg) No Straw Liquids from Cup Solid Food Consistency: Dietary Recommendations: NPO Additional Modifications to Solids: Oral Medication Intake: NPO Strategies and Precautions to be Taken for Safe Swallow: Sitting Upright (90 deg) No Straw Liquids from Cup Supervision While Eating and/Drinking: Total Assistance Foods to Avoid: Swallowing Recommended Treatments: Compens. Strategy Educat. Level of Impact on: Daily activities: Severe Interpersonal interactions: Severe Education: Severe Community: Severe Prognosis for Improvement: Fair Recommendation for Speech: Inpatient Speech Therapy Comment: 02/03: Per RN, pt no longer on TPN. MD ordered pt a clear liquid diet. Pt tolerated thin liquids via clinician controlled cup sips without overt s/s aspiration. She continued to decline all solids offered during dysphagia treatment session. Frequency/Duration: Daily M-F Date Range for Service Req: Timeline to reassess: PRN Additional Comments: Pt currently presenting with severe cognitive/linguistic impairment s/p CVA. Pt may also be in withdrawal from Opioids. Treatment: Pt was restless and moaning when this THIOKOL OPERATOR arrived to her room for dysphagia treatment. Pt stated I'm really, really sick . Pt was noted to be dry heaving and was offered a basin. MD who entered pt's room was made aware. RN was also notified via [place] text by this THIOKOL OPERATOR. RN stated she was awaiting an order for Zofran. Pt initially refused all PO intake then notified this THIOKOL OPERATOR that pt requested something to drink. Pt was dependent for intake of liquids and drank 4 oz thin liquids via clinician controlled cup sips with a mildly delayed pharyngeal swallow trigger and no overt s/s aspiration. Pt continues to refuse all solids offered. Per RN, pt no longer on TPN and a clear liquid diet was initiated. Pt continues to present with impaired cognition and expressive/receptive aphasia. She demonstrated perseverative and nonsensical expressive language this date, stating I want to save my stomach, please save my stomach . Then when asked if she wanted some juice, began repeating Oh my God, my juice. I need to save my juice. Please save my juice . Pt unable to participate in a cognitive/language evaluation this date due to feeling sick/anxious. Will attempt 02/04. RN notified. THIOKOL OPERATOR will continue to follow pt throughout her stay. Assessment: Proofer Black And White Clinican/Clinical Fellow: No Supervisory Statement: I have reviewed and agree with the student/clinical fellow's documentation: N/A Speech Language Pathologist: Mahsa Sorto M.A., CCC-THIOKOL OPERATOR
[2021-02-03 11:31] LABS: Glucose, Whole Blood 331 mg/dL (60-115)
[2021-02-03 12:35] LABS: Anion Gap 14 (12-20); Blood Urea Nitrogen 15 mg/dL (9-16); Calcium 9.4 mg/dL (8.4-10.2); Carbon Dioxide 25 mmol/L (22-29); Chloride 108 mmol/L (96-108); Creatinine Clr Calc Pharmacy 84.2; Estimated Glomerular Filt Rate > 60; Glucose Random 359 mg/dL (60-115); Potassium 2.9 mmol/L (3.3-5.1); Sodium 144 mmol/L (135-145)
[2021-02-03 13:04] LABS: Magnesium 1.7 mg/dL (1.6-2.6); Phosphorus 2.5 mg/dL (2.7-4.5)
[2021-02-03] MEDS: Enoxaparin Sodium 40 MG/0.4 ML SYRINGE SUBCUT (13:17)
--- NOTE | 2021-02-03 14:58 | MHC.CM.PN ---
per rounds pt will be evaluasted by pt prior to dc no dc date at this time
[2021-02-03 16:26] LABS: Glucose, Whole Blood 296 mg/dL (60-115)
--- NOTE | 2021-02-03 17:01 | HO.PM.IMPN ---
Subjective Subjective Date of Service: 02/04/21 Interval History: Patient awake alert this morning requesting to drink, seen by speech therapy they continue to recommend clear liquids and no solids, later patient became more somnolent with intermittent episodes of agitation. Review of Systems Unable to obtain detailed review of system due to periods of somnolence and agitation. Physical Exam Vital Signs: Vital Signs: Last Vital Signs Temp 98 F 02/03/21 15:40 Pulse 105 H 02/03/21 15:40 Resp 20 02/03/21 15:40 BP 170/90 H 02/03/21 15:40 Pulse Ox 95 02/03/21 15:40 Body Mass Index 34.9 General: Awake this a.m. not agitated, later became somnolent Neck no JVD Resp:? CTA bilateral CVS: S1,S2,RRR GI:? Abdomen soft, bowel sounds present Skin: No rash, redness around left heel, chronic, BKA of the right Neuro:? Symmetric face, moving all 4 extremities, speech clear this a.m. Extremities no edema on left ? Objective Data Active Medications Acetaminophen (Acetaminophen 325 Mg Tablet) 650 mg PO Q6H PRN PRN Reason: Pain, Mild (Pain Scale 1-3) Amitriptyline HCl (Amitriptyline Hcl 50 Mg Tablet) 50 mg PO BEDTIME [facility] Last Admin: 02/02/21 21:15 Dose: Not Given Documented by: YORDY Non-Admin Reason: NPO Aspirin (Aspirin Enteric Coated 81 Mg Tablet.Dr) 81 mg PO DAILY [facility] Last Admin: 02/03/21 09:08 Dose: Not Given Documented by: SRINIVAS Non-Admin Reason: NPO Aspirin (Aspirin 300 Mg Supp.Rect) 300 mg [place] DAILY [facility] Last Admin: 02/03/21 09:08 Dose: Not Given Documented by: SRINIVAS Non-Admin Reason: NPO Atorvastatin Calcium (Atorvastatin Calcium 80 Mg Tablet) 80 mg PO BEDTIME [facility] Last Admin: 02/02/21 21:15 Dose: Not Given Documented by: YORDY Non-Admin Reason: NPO Dextrose (Dextrose 50 % 25 Gm/50 Ml Vial) 25 gm IVPUSH Q15M PRN; Protocol PRN Reason: per Hypoglycemia Standing Ord. Enoxaparin Sodium (Enoxaparin Sodium 40 Mg/0.4 Ml Syringe) 40 mg SUBCUT Q24H [facility] Last Admin: 02/03/21 13:17 Dose: 40 mg Documented by: SRINIVAS Gabapentin (Gabapentin 300 Mg Capsule) 600 mg PO TID [facility] Last Admin: 02/03/21 16:23 Dose: Not Given Documented by: SRINIVAS Non-Admin Reason: Patient Refused Glucose (Glucose Gel 15 Gm Gel..Gram.) 15 gm PO Q15M PRN; Protocol PRN Reason: per Hypoglycemia Standing Ord. Haloperidol Lactate (Haloperidol Lactate 5 Mg/Ml Vial) 2 mg IM Q4H PRN PRN Reason: Delirium Last Admin: 02/01/21 05:36 Dose: 2 mg Documented by: WHITNEY Hydromorphone HCl (Hydromorphone Hcl 1 Mg/Ml Syringe) 1 mg IVPUSH Q4H PRN; Protocol PRN Reason: Pain, Severe (Pain Scale 7-10) Last Admin: 02/03/21 13:15 Dose: 1 mg Documented by: SRINIVAS Promethazine HCl 12.5 mg/ (Sodium Chloride) 50.5 mls @ 202 mls/hr IV Q4H PRN PRN Reason: Nausea and Vomiting Last Infusion: 02/02/21 12:41 Dose: 0 mls/hr Documented by: SANTO Multivitamins 20 ml/ Trace Metals 2 ml/ Amino Acids/Electrolytes/Dextrose 960 mls @ 40 mls/hr IV DAILY@1800 [facility] Stop: 02/03/21 17:59 Last Admin: 02/02/21 18:31 Dose: 40 mls/hr Documented by: SANTO Metoprolol Tartrate 5 mg/ (Sodium Chloride) 55 mls @ 220 mls/hr IV Q6H [facility] Last Admin: 02/03/21 16:22 Dose: 220 mls/hr Documented by: SRINIVAS Multivitamins 14 ml/ Trace Metals 1.4 ml/ Amino Acids/Electrolytes/Dextrose 1,440 mls @ 60 mls/hr IV DAILY@1800 [facility] Stop: 02/04/21 17:59 Insulin Human Lispro (Insulin Lispro 100 Unit/Ml 3 Ml Vial) 0 unit SUBCUT QIDACHS [facility]; Protocol Last Admin: 02/03/21 12:36 Dose: 8 unit Documented by: SRINIVAS Isosorbide Mononitrate (Isosorbide Mononitrate 30 Mg Tab.Er.24h) 30 mg PO DAILY [facility]; Protocol Last Admin: 02/03/21 09:08 Dose: Not Given Documented by: SRINIVAS Non-Admin Reason: NPO Lorazepam (Lorazepam 2 Mg/Ml Vial) 1 mg IVPUSH Q4H PRN PRN Reason: Anxiety Last Admin: 02/03/21 03:54 Dose: 1 mg Documented by: YORDY Lorazepam (Lorazepam 2 Mg/Ml Vial) 2 mg IVPUSH TID [facility] Last Admin: 02/03/21 16:17 Dose: 2 mg Documented by: SRINIVAS Niacin (Niacin Er 250 Mg Tablet.Er) 1,000 mg PO BEDTIME [facility] Last Admin: 02/02/21 21:15 Dose: Not Given Documented by: YORDY Non-Admin Reason: NPO Omeprazole (Omeprazole 20 Mg Capsule.Dr) 20 mg PO BID@0630,1630 [facility] Last Admin: 02/03/21 03:56 Dose: Not Given Documented by: YORDY Non-Admin Reason: NPO Pharmacy Consult (Consult Rx Perform Med Rec) 1 each MISCELLANE ONCE PRN PRN Reason: Consult order Sodium Chloride (0.9 % Sodium Chloride Flush 3 Ml Syringe) 3 ml IVFLUSH QSHIFT [facility] Last Admin: 02/03/21 09:08 Dose: 3 ml Documented by: SRINIVAS Topiramate (Topiramate 100 Mg Tablet) 100 mg PO BID [facility] Last Admin: 02/03/21 09:09 Dose: Not Given Documented by: SRINIVAS Non-Admin Reason: NPO Labs CBC & Chem 7: 01/31/21 08:19 02/04/21 05:39 Labs: Laboratory Results - last 24 hr 02/02/21 02/03/21 02/03/21 20:51 07:06 11:26 Anion Gap Estim Creat Clear Calc Estimated GFR POC Glucose 291 H 323 H 331 H Random Glucose Calcium Phosphorus Magnesium 02/03/21 02/03/21 11:53 16:21 Anion Gap 14 Estim Creat Clear Calc 84.2 Estimated GFR > 60 POC Glucose 296 H Random Glucose 359 H* Calcium 9.4 Phosphorus 2.5 L Magnesium 1.7 Assessment and Plan (1) CVA (cerebral vascular accident): Status: Acute Assessment and Plan: 60-year-old female with a past medical history of hypertension, hyperlipidemia, diabetes, diabetic gastroparesis, anxiety, chronic abdominal pain discharge from the hospital today after being evaluated for acute on chronic abdominal pain-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 Noted to have CVA on CT head.? Admitted for further management. #Confusion/agitation--likely multifactorial, ? opioid and benzo withdrawal, seizure cannot be excluded,? she is on high amount of opioid and Xanax at home and has not received since admission ? Will Continue Dilaudid IV and Ativan (in place of home xanax) and clonidine in the event of withdrawal, Psych has seen her and recommend Haldol 1 to 5 and ativan 1 mg as needed, Currently on Ativan [address] of Xanax ? 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 confusion and agitation ? Will obtain brain MRI study , CTA head and neck for further investigation when less agitated and able to tolerate,not sure if MRI can be done given history gastric implantable device ? Continue aspirin per rectum till tolerate by mouth ? Will switch to by mouth medications when able to swallow ? Being followed closely by speech therapy will place on thin liquids ? PT OT consult obtain ? Continue iv PPN, less likely to tolerate NG feeding # hypokalemia will replete and follow #Urinary retention:? Kam in, Seen by Dr. Osorio and radha to remain in for now #History of chronic abdominal pain/diabetic gastroparesis:? Supportive care.? Patient to follow-up with gastroenterology as outpatient for further management.? Patient is on dilaudid at home,? Give IV dilaudid and IV ativan in ?place of Xanax and by mouth Dilaudid #History of diabetes:? While NPO, continue insulin Sliding scale dc IVF since on PPN #Hypertension: Elevated blood pressures started on metoprolol IV 5 mg q.6 hours, hold po meds for now #Left heel has hyperemia/skin changes:? Monitor for pressure ulcer, standard pressure ulcer care #Diet:? Clear liquids for now, continue speech therapy eval Code status full code ? DVT prophylaxis with Lovenox Quality Stroke Does the patient have a stroke diagnosis?: No VTE Prior VTE?: No VTE Risk Level:: Medical - low VTE Device Contraindication: Treatment Not Indicated VTE Drug Contraindication: N/A - Med Ordered
[2021-02-03] MEDS: Potassium Chloride/H20 10 MEQ/100 ML PIGGYBACK 100 MEQ IV ×2 (18:14→20:00)
[2021-02-03 20:26] LABS: Glucose, Whole Blood 243 mg/dL (60-115)
[2021-02-04] MEDS: HYDROmorphone HCl 1 MG/ML SYRINGE IVPUSH ×2 (00:08→05:25)
[2021-02-04] MEDS: LORazepam 2 MG/ML VIAL 1 MG IVPUSH ×2 (02:34→11:23)
[2021-02-04] MEDS: Metoprolol Tartrate 5 MG in 0.9 % Sodium Chloride 50 ML 220 MG IV ×2 (02:34→10:50)
[2021-02-04 07:07] VITALS: BP 150/69; PULSE 82; RESP 18; TEMP 36.7; O2SAT 94
[2021-02-04 07:25] LABS: Glucose, Whole Blood 354 mg/dL (60-115)
[2021-02-04 07:43] LABS: Anion Gap 16 (12-20); Blood Urea Nitrogen 15 mg/dL (9-16); Calcium 8.8 mg/dL (8.4-10.2); Carbon Dioxide 24 mmol/L (22-29); Chloride 105 mmol/L (96-108); Creatinine Clr Calc Pharmacy 93.5; Estimated Glomerular Filt Rate > 60; Glucose Random 386 mg/dL (60-115); Potassium 2.9 mmol/L (3.3-5.1); Sodium 142 mmol/L (135-145)
--- NOTE | 2021-02-04 08:51 | PC.NURSE ---
Skin assessment completed today. Patient has a stage 2 blister to left heel and stage 2 to coccyx. Both cleansed with normal saline, Triad applied to both wounds, heel covered with nonwoven gauze and roll gauze, coccyx covered with foam dressing. Scattered bruising on arms. No other skin issues noted at this time. Airloss been ordered.
[2021-02-04] MEDS: Insulin Lispro 100 UNIT/ML 3 ML VIAL SUBCUT ×2 (09:52→11:24)
[2021-02-04] MEDS: LORazepam 2 MG/ML VIAL IVPUSH (09:54)
[2021-02-04 10:03] LABS: Albumin Level 3.7 g/dL (3.5-5.0); Magnesium 1.6 mg/dL (1.6-2.6); Phosphorus 3.2 mg/dL (2.7-4.5); Triglycerides 155 mg/dL
[2021-02-04] MEDS: 0.9 % Sodium Chloride Flush 3 ML SYRINGE IVFLUSH (10:04)
[2021-02-04 10:24] VITALS: BP 150/69; PULSE 82; O2SAT 94
[2021-02-04 11:10] VITALS: BP 165/70; PULSE 86; RESP 18; TEMP 36.8; O2SAT 96
--- NOTE | 2021-02-04 11:21 | MHC.SL.SWA ---
Addendum entered and electronically signed by TANIA Wing 02/05/21 09:27: Note: On note of 02/04/21, NO CHANGE in Dysphasia Diet status was indicated in error. On this day, Pt diet was upgraded from clear liquids to Puree (NDD1) with thin liquids. Original Note: Speech Pathologist Impression: Risk of Aspiration Risk of Aspiration Due to: Poor PO Intake Reduced Cognition Dysphasia Diet Status: No Change Liquid Consistency and Strategies for Safe Swallow: Liquid Intake Recommendation: Thin Liquid Intake Strategies: Small Sips No Straws Solid Food Consistency: Dietary Recommendations: Pureed (NDD1) Additional Modifications to Solid Foods: Oral Medication Intake: Crushed with Puree Compensatory Strategies and Precautions to be Taken for Safe Swallow: Sitting Upright (90 deg) No Straw Liquids from Cup Small Bites and Sips Alternate Liquids/Solids Supervision While Eating and Drinking for Safe Swallow: Total Supervision (1:1) Foods to Avoid: Swallowing Recommended Treatments: Compens. Strategy Educat. Recommendation for Speech: Inpatient Speech Therapy 02/04/21: Pt seen this AM to re-assess swallow. At onset of visit, PT was agitated about IV (What is this??) but calmed when given an explanation. Pt provided some reliable responses to questions, was able to report about where she lived and when given options, was able to identify that she was at [facility]. Pt occasionally became repetitive (about her mother being ), used a high pitched voice, and became weepy. Pt requested Vanilla Pudding to eat for this trial, and when offered a piece of bread said I'm amado picky about bread. On cup sips of water, Pt demonstrated a mild delay of swallow, with no signs of aspiration. Pt notably said she wanted to chug it and was directed to take sips instead. Nurse reported that Pt has been taking liquid with straw, this was observed, and Pt presented with taking chain sips and having a wet voice after. Liquid from straw was discouraged. Pt took spoonfuls of puree, was able to close mouth and strip spoon, had a mildly prolonged oral phase/bolus prep and a mild delay of swallow. On soft solid (bread), Pt had a prolonged oral phase of mastication, appeared to neglect bolus after chewing and needed to be cued to swallow. Recommend diet change to include puree solids with thin liquids, meds given crushed in puree. Pt will need supervision during meals/drinking liquids due to impulsivity. No liquid by straw. MD notified by secure text, Nurse advised. Blindstitch Lining Feller Clinican/Clinical Fellow: No Supervisory Statement: I have reviewed and agree with the student/clinical fellow's documentation: N/A Speech Language Pathologist: Codie Seth M.A., CCC-EHR TRAINER
--- NOTE | 2021-02-04 11:21 | MHC.CLN ---
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
[2021-02-04] MEDS: Potassium Chloride/H20 10 MEQ/100 ML PIGGYBACK 100 MEQ IV (11:35)
[2021-02-04 11:39] LABS: Glucose, Whole Blood 390 mg/dL (60-115)
--- NOTE | 2021-02-04 12:49 | MHC.CM.PN ---
i spoke c pt's daughter/hcp - deisy. she says she would like patient to go to rehab and to make refs in [facility] . she said she would not want her mother to go to [facility]. as she has been there is the past and it was not a good experience. pt's daughter lives in [place]. per sarita's reports patient has recieved the sung and sung vaccine within the last six mos. sarita is accepting that her mother will be going to a rehab and that choices will be given to her for this soon. cm to cont. to follow.
[2021-02-04 15:43] VITALS: BP 140/58; PULSE 82; RESP 18; TEMP 37.1; O2SAT 97
[2021-02-04 16:43] LABS: Glucose, Whole Blood 230 mg/dL (60-115)
--- NOTE | 2021-02-04 17:58 | P.PNIM_ITS ---
Subjective Subjective Date of Service: 02/05/21 Interval History: Being followed for subacute CVA patient more awake alert talking in full sentences this morning wanted to drink water, seen by speech therapy and placed on pureed diet and thin liquids Review of Systems Awake alert but not providing meaningful history therefore difficult to obtain review of systems. Physical Exam Vital Signs: Vital Signs: Last Vital Signs Temp 98.7 F 02/04/21 15:43 Pulse 82 02/04/21 15:43 Resp 18 02/04/21 15:43 BP 140/58 H 02/04/21 15:43 Pulse Ox 97 02/04/21 15:43 Body Mass Index 34.9 General:? Awake alert this a.m. later became somnolent/ and periods of agitation when awake Neck no JVD Resp:? CTA bilateral CVS: S1,S2,RRR GI:? Abdomen soft, bowel sounds present Skin: No rash, redness around left heel, chronic, BKA of the right Neuro:? Symmetric face, moving all 4 extremities, speech clear this a.m. Extremities no edema on left Objective Data Active Medications Acetaminophen (Acetaminophen 325 Mg Tablet) 650 mg PO Q6H PRN PRN Reason: Pain, Mild (Pain Scale 1-3) Alprazolam (Alprazolam 0.5 Mg Tablet) 0.5 mg PO TID [facility] Amitriptyline HCl (Amitriptyline Hcl 50 Mg Tablet) 50 mg PO BEDTIME [facility] Last Admin: 02/03/21 20:00 Dose: Not Given Documented by: LORE Non-Admin Reason: Patient Refused Aspirin (Aspirin Enteric Coated 81 Mg Tablet.) 81 mg PO DAILY [facility] Last Admin: 02/04/21 10:52 Dose: Not Given Documented by: SRINIVAS Non-Admin Reason: clear liquids only Atorvastatin Calcium (Atorvastatin Calcium 80 Mg Tablet) 80 mg PO BEDTIME [facility] Last Admin: 02/03/21 20:01 Dose: Not Given Documented by: LORE Non-Admin Reason: Patient Refused Dextrose (Dextrose 50 % 25 Gm/50 Ml Vial) 25 gm IVPUSH Q15M PRN; Protocol PRN Reason: per Hypoglycemia Standing Ord. Enoxaparin Sodium (Enoxaparin Sodium 40 Mg/0.4 Ml Syringe) 40 mg SUBCUT Q24H [facility] Last Admin: 02/04/21 13:55 Dose: Not Given Documented by: SRINIVAS Non-Admin Reason: Patient Refused Gabapentin (Gabapentin 300 Mg Capsule) 600 mg PO TID [facility] Last Admin: 02/04/21 13:55 Dose: Not Given Documented by: SRINIVAS Non-Admin Reason: Patient Refused Glucose (Glucose Gel 15 Gm Gel..Gram.) 15 gm PO Q15M PRN; Protocol PRN Reason: per Hypoglycemia Standing Ord. Hydromorphone HCl (Hydromorphone Hcl 2 Mg Tablet) 1 mg PO Q6H [facility] Last Admin: 02/04/21 13:54 Dose: Not Given Documented by: SRINIVAS Non-Admin Reason: Patient Refused Promethazine HCl 12.5 mg/ (Sodium Chloride) 50.5 mls @ 202 mls/hr IV Q4H PRN PRN Reason: Nausea and Vomiting Last Infusion: 02/02/21 12:41 Dose: 0 mls/hr Documented by: SANTO Metoprolol Tartrate 5 mg/ (Sodium Chloride) 55 mls @ 220 mls/hr IV Q6H [facility] Last Infusion: 02/04/21 11:55 Dose: 0 mls/hr Documented by: SRINIVAS Multivitamins 14 ml/ Trace Metals 1.4 ml/ Amino Acids/Electrolytes/Dextrose 1,440 mls @ 60 mls/hr IV DAILY@1800 [facility] Stop: 02/04/21 17:59 Last Admin: 02/03/21 22:26 Dose: 60 mls/hr Documented by: ANTOIC Multivitamins 10 ml/ Trace Metals 1 ml/ Amino Acids/Electrolytes/Dextrose 1,920 mls @ 80 mls/hr IV DAILY@1800 [facility] Stop: 02/05/21 17:59 Insulin Human Lispro (Insulin Lispro 100 Unit/Ml 3 Ml Vial) 0 unit SUBCUT QIDACHS [facility]; Protocol Last Admin: 02/04/21 11:24 Dose: 10 unit Documented by: SRINIVAS Isosorbide Mononitrate (Isosorbide Mononitrate 30 Mg Tab.Er.24h) 30 mg PO DAILY [facility]; Protocol Last Admin: 02/04/21 10:52 Dose: Not Given Documented by: SRINIVAS Non-Admin Reason: clear liquids only Lorazepam (Lorazepam 2 Mg/Ml Vial) 1 mg IVPUSH Q4H PRN PRN Reason: Anxiety Last Admin: 02/04/21 11:23 Dose: 1 mg Documented by: SRINIVAS Niacin (Niacin Er 250 Mg Tablet.Er) 1,000 mg PO BEDTIME [facility] Last Admin: 02/03/21 20:01 Dose: Not Given Documented by: LORE Non-Admin Reason: Patient Refused Omeprazole (Omeprazole 20 Mg Capsule.Dr) 20 mg PO BID@0630,1630 [facility] Last Admin: 02/04/21 03:37 Dose: Not Given Documented by: ANTPRISCILLA Non-Admin Reason: Unable to take PO Pharmacy Consult (Consult Rx Perform Med Rec) 1 each MISCELLANE ONCE PRN PRN Reason: Consult order Sodium Chloride (0.9 % Sodium Chloride Flush 3 Ml Syringe) 3 ml IVFLUSH QSHIFT [facility] Last Admin: 02/04/21 10:04 Dose: 3 ml Documented by: SRINIVAS Topiramate (Topiramate 100 Mg Tablet) 100 mg PO BID [facility] Last Admin: 02/04/21 10:53 Dose: Not Given Documented by: SRINIVAS Non-Admin Reason: clear liquids only Labs CBC & Chem 7: 01/31/21 08:19 02/05/21 11:31 Labs: Laboratory Results - last 24 hr 02/03/21 02/04/21 02/04/21 20:21 05:39 07:09 Anion Gap 16 Estim Creat Clear Calc 93.5 Estimated GFR > 60 POC Glucose 243 H 354 H* Random Glucose 386 H* Calcium 8.8 D Phosphorus 3.2 Magnesium 1.6 Albumin 3.7 Triglycerides 155 02/04/21 02/04/21 11:09 16:37 Anion Gap Estim Creat Clear Calc Estimated GFR POC Glucose 390 H* 230 H Random Glucose Calcium Phosphorus Magnesium Albumin Triglycerides Microbiology Microbiology Results: Microbiology 01/29/21 19:00 Blood Culture - Final Blood - Venous No growth after 5 days. 01/29/21 19:00 Blood Culture - Final Blood - Venous No growth after 5 days. 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 Noted to have CVA on CT head.? Admitted for further management. #Confusion/agitation--likely multifactorial, ? opioid and benzo withdrawal, seizure cannot be excluded,? she is on high amount of opioid and Xanax at home and has not received since admission ? Will Continue Dilaudid IV and Ativan (in place of home xanax) and clonidine in the event of withdrawal, ? Psych has seen her and recommend Haldol 1 to 5 and ativan 1 mg as needed, Currently on Ativan [address] of Xanax ? Clinically patient less agitated this morning will continue supportive care an d follow clinical course #Subacute stroke in BODY PRESSER territory--manifestation right now? confusion and agitation ? Will obtain brain MRI study , CTA head and neck for further investigation when less agitated and able to tolerate,not sure if MRI can be done given history gastric implantable device ? Continue aspirin per rectum till tolerate by mouth ? Will switch to by mouth medications when able to swallow ? Being followed closely by speech therapy will place on thin liquids ? PT OT consult obtain ? Continue iv PPN, less likely to tolerate NG feeding # hypokalemia persistent low potassium, will replete and follow Labs #Urinary retention:? Continue Kam as per urologist Dr. Osorio #History of chronic abdominal pain/diabetic gastroparesis:? Supportive care.? Patient to follow-up with gastroenterology as outpatient for further management.? Patient is on dilaudid at home,? Give IV dilaudid and IV ativan in ?place of Xanax and by mouth Dilaudid #History of diabetes:? While NPO, continue insulin Sliding scale dc IVF since on PPN #Hypertension:? Elevated blood pressures started on metoprolol IV 5 mg q.6 hours, hold po meds for now #Left heel has hyperemia/skin changes:? Monitor for pressure ulcer, standard pressure ulcer care #Diet:? Clear liquids and pureed diet ,continue speech therapy eval Code status full code ? DVT prophylaxis with Lovenox Quality Stroke Does the patient have a stroke diagnosis?: No VTE Prior VTE?: No VTE Risk Level:: Medical - low VTE Device Contraindication: Treatment Not Indicated VTE Drug Contraindication: N/A - Med Ordered
[2021-02-04 19:30] VITALS: BP 156/82; PULSE 93; RESP 18; TEMP 37.7; O2SAT 97
[2021-02-04 21:01] LABS: Glucose, Whole Blood 255 mg/dL (60-115)
[2021-02-04] MEDS: OLANZapine 10 MG VIAL 5 MG IM (22:16)
[2021-02-04 23:06] VITALS: BP 159/70; PULSE 92; RESP 17; TEMP 37.4; O2SAT 97
[2021-02-05] VITALS (11 sets, daily range): BP systolic 146–179; BP diastolic 70–86; PULSE 85–95; RESP 16–20; TEMP 36.5–37.2; O2SAT 96–98
[2021-02-05] MEDS: Potassium Chloride/H20 10 MEQ/100 ML PIGGYBACK 100 MEQ IV ×3 (00:10→11:02)
[2021-02-05] MEDS: LORazepam 2 MG/ML VIAL 1 MG IVPUSH ×4 (00:19→20:32)
[2021-02-05] MEDS: 0.9 % Sodium Chloride Flush 3 ML SYRINGE IVFLUSH ×2 (00:20→07:49)
[2021-02-05] MEDS: Metoprolol Tartrate 5 MG in 0.9 % Sodium Chloride 50 ML 220 MG IV ×3 (02:44→15:05)
--- NOTE | 2021-02-05 03:34 | PC.NURSE ---
Patient noted to be very restless, teary, crying, grimacing. Patient unable to verbally express what is bothering her. Patient with no IV access at that time. Patient unable to get PRN medications r/t no IV access. PT unable to tolerate PO medications at this time, constantly spitting out anything put in her mouth. Patient very uncomfortable. IV access attempted, unsuccessful. MD made aware. Patient given 5mg IM zyprexa as ordered with good effect. Pt able to rest better. IV access obtained. Patient able to get PRN medication and all other medications at that time.
[2021-02-05 07:29] LABS: Glucose, Whole Blood 385 mg/dL (60-115)
[2021-02-05] MEDS: Insulin Lispro 100 UNIT/ML 3 ML VIAL SUBCUT ×4 (07:48→22:41)
[2021-02-05 11:06] LABS: Glucose, Whole Blood 312 mg/dL (60-115)
--- NOTE | 2021-02-05 11:40 | MHC.CLN ---
Addendum entered by Domitila Bal, GERMAN 02/05/21 17:42: AGREE WITH PROVIDER'S ASSESSMENT BELOW Original Note: F/U PT ADVANCED TO PUREED 1999 DM DIET PT IS SPITTING OUT MEDS/FOOD PER MD PT RECEIVING PPN D10AA4.25% AT 80 ML/HOUR TO PROVIDE 979 KCALS AND 82 GRAMS PROTEIN RECOMMEND ADDING LIPIDS TO PPN-PPN RECOMMENDATION: D10AA4.25% AT 80 ML/HOUR WITH 11 ML/HOUR OF 20% LIPIDS TO PROVIDE 1507 KCALS AND 82 GRAMS PROTEIN REPLETE LYTES AND MONITOR TRIGS RECOMMEND GLUCERNA SUPPLEMENT BID TO PROVIDE 474 KCALS AND 20 GRAMS PROTEIN MONITOR PO INTAKE
--- NOTE | 2021-02-05 11:51 | MHC.CM.PN ---
per rounds pt not ready for dc may have psych eval and will starting on ivs ..no dc date at this time
[2021-02-05 11:57] LABS: Albumin Level 3.8 g/dL (3.5-5.0); Anion Gap 15 (12-20); Blood Urea Nitrogen 9 mg/dL (9-16); Calcium 8.9 mg/dL (8.4-10.2); Carbon Dioxide 26 mmol/L (22-29); Chloride 103 mmol/L (96-108); Creatinine Clr Calc Pharmacy 93.5; Estimated Glomerular Filt Rate > 60; Glucose Random 343 mg/dL (60-115); Magnesium 1.7 mg/dL (1.6-2.6); Sodium 141 mmol/L (135-145); Triglycerides 128 mg/dL
[2021-02-05 12:06] LABS: Phosphorus 2.4 mg/dL (2.7-4.5)
--- NOTE | 2021-02-05 12:25 | MHC.CM.PN ---
met with pt who is from where she expects to return when medically stable prior to admisison pt was lvivng with father and siblings
--- NOTE | 2021-02-05 12:47 | MHC.SLORD ---
Speech Language Pathology Order Status: Attempted to see Pt for swallow trials this a.m., Pt being seen during medical rounds. Will re-attempt on Monday
[2021-02-05] MEDS: Potassium Chloride/H20 10 MEQ/100 ML PIGGYBACK 59.73 MEQ IV (13:09)
[2021-02-05] MEDS: Enoxaparin Sodium 40 MG/0.4 ML SYRINGE SUBCUT (14:54)
[2021-02-05] MEDS: ALPRAZolam 0.5 MG TABLET PO (15:13)
[2021-02-05] MEDS: Nitroglycerin 2 % Oint 1 GM Packet 0.5 INCH TRANSDERMA (15:51)
[2021-02-05 16:15] LABS: Glucose, Whole Blood 181 mg/dL (60-115)
--- NOTE | 2021-02-05 17:19 | HO.PM.IMPN ---
Subjective Subjective Date of Service: 02/05/21 Interval History: patient seen examined in the presence of RN, patient's daughter who is the [employer] and patient's granddaughter, patient is awake alert answering questions appropriately initially spoke in soft voice therefore was difficult to understand later was more clear, most of the time patient was crying and asking if she will live, refusing to go to a fdc, denies sore throat, no fevers no chills, less behavioral issues noted. by mouth intake remains poor Review of Systems patient awake alert offering no acute symptoms Physical Exam Vital Signs: Vital Signs: Last Vital Signs Temp 99 F 02/05/21 15:32 Pulse 95 02/05/21 15:51 Resp 20 02/05/21 15:32 BP 150/70 H 02/05/21 15:51 Pulse Ox 98 02/05/21 15:32 Body Mass Index 34.9 General:? Awake alert with periods of somnolence but easily arousable answering questions appropriately aware to place and person Neck no JVD oral mucosa moist Resp:? CTA bilateral CVS: S1,S2,RRR GI:? Abdomen soft, bowel sounds present Skin: No rash, redness around left heel, chronic, BKA of the right Neuro:? Symmetric face, moving all 4 extremities, speech clear this a.m. Extremities no edema on left Objective Data Active Medications Acetaminophen (Acetaminophen 325 Mg Tablet) 650 mg PO Q6H PRN PRN Reason: Pain, Mild (Pain Scale 1-3) Alprazolam (Alprazolam 0.5 Mg Tablet) 0.5 mg PO TID [facility] Last Admin: 02/05/21 15:13 Dose: 0.5 mg Documented by: SAVANNA Amitriptyline HCl (Amitriptyline Hcl 50 Mg Tablet) 50 mg PO BEDTIME [facility] Last Admin: 02/04/21 20:03 Dose: Not Given Documented by: MERVAT Non-Admin Reason: NPO Aspirin (Aspirin Enteric Coated 81 Mg Tablet.) 81 mg PO DAILY [facility] Last Admin: 02/05/21 10:42 Dose: Not Given Documented by: ALVERTO Non-Admin Reason: Patient Refused Atorvastatin Calcium (Atorvastatin Calcium 80 Mg Tablet) 80 mg PO BEDTIME [facility] Last Admin: 02/04/21 20:03 Dose: Not Given Documented by: MERVAT Non-Admin Reason: NPO Dextrose (Dextrose 50 % 25 Gm/50 Ml Vial) 25 gm IVPUSH Q15M PRN; Protocol PRN Reason: per Hypoglycemia Standing Ord. Enoxaparin Sodium (Enoxaparin Sodium 40 Mg/0.4 Ml Syringe) 40 mg SUBCUT Q24H [facility] Last Admin: 02/05/21 14:54 Dose: 40 mg Documented by: SAVANNA Gabapentin (Gabapentin 300 Mg Capsule) 600 mg PO TID [facility] Last Admin: 02/05/21 16:43 Dose: Not Given Documented by: ALVERTO Non-Admin Reason: Patient Refused Glucose (Glucose Gel 15 Gm Gel..Gram.) 15 gm PO Q15M PRN; Protocol PRN Reason: per Hypoglycemia Standing Ord. Hydralazine HCl (Hydralazine Hcl 20 Mg/Ml Vial) 5 mg IVPUSH Q6H PRN; Protocol PRN Reason: SBP> 160 Hydromorphone HCl (Hydromorphone Hcl 1 Mg/Ml Syringe) 1 mg IVPUSH Q4H PRN; Protocol PRN Reason: Pain, Severe (Pain Scale 7-10) Promethazine HCl 12.5 mg/ (Sodium Chloride) 50.5 mls @ 202 mls/hr IV Q4H PRN PRN Reason: Nausea and Vomiting Last Infusion: 02/02/21 12:41 Dose: 0 mls/hr Documented by: SANTO Metoprolol Tartrate 5 mg/ (Sodium Chloride) 55 mls @ 220 mls/hr IV Q6H [facility] Last Infusion: 02/05/21 15:22 Dose: 0 mls/hr Documented by: STANISLAW Multivitamins 10 ml/ Trace Metals 1 ml/ Amino Acids/Electrolytes/Dextrose 1,920 mls @ 80 mls/hr IV DAILY@1800 [facility] Stop: 02/05/21 17:59 Last Admin: 02/05/21 00:19 Dose: 80 mls/hr Documented by: MERVAT Comments: patient without IV access most of the day and evening Multivitamins 10 ml/ Trace Metals 1 ml/ Amino Acids/Electrolytes/Dextrose 1,920 mls @ 80 mls/hr IV DAILY@1800 [facility] Stop: 02/06/21 17:59 Fat Emulsion Intravenous (Intralipid) 132 mls @ 11 mls/hr IVCONT BID@0600,1800 [facility] Stop: 02/06/21 17:59 Insulin Human Lispro (Insulin Lispro 100 Unit/Ml 3 Ml Vial) 0 unit SUBCUT QIDACHS [facility]; Protocol Last Admin: 02/05/21 13:04 Dose: 10 unit Documented by: ALVERTO Lorazepam (Lorazepam 2 Mg/Ml Vial) 1 mg IVPUSH Q4H PRN PRN Reason: Anxiety Last Admin: 02/05/21 16:40 Dose: 1 mg Documented by: ALVERTO Niacin (Niacin Er 250 Mg Tablet.Er) 1,000 mg PO BEDTIME [facility] Last Admin: 02/04/21 20:04 Dose: Not Given Documented by: MERVAT Non-Admin Reason: NPO Nitroglycerin (Nitroglycerin 2 % Oint 1 Gm Packet) 0.5 inch TRANSDERMA RQ6H WHILE AWAKE [facility] Last Admin: 02/05/21 15:51 Dose: 0.5 inch Documented by: SAVANNA Omeprazole (Omeprazole 20 Mg Capsule.Dr) 20 mg PO BID@0630,1630 [facility] Last Admin: 02/05/21 06:01 Dose: Not Given Documented by: JASMIN Non-Admin Reason: Patient Refused Pharmacy Consult (Consult Rx Perform Med Rec) 1 each MISCELLANE ONCE PRN PRN Reason: Consult order Sodium Chloride (0.9 % Sodium Chloride Flush 3 Ml Syringe) 3 ml IVFLUSH QSHIFT [facility] Last Admin: 02/05/21 17:06 Dose: Not Given Documented by: STANISLAW Non-Admin Reason: IV Running Topiramate (Topiramate 100 Mg Tablet) 100 mg PO BID [facility] Last Admin: 02/05/21 10:44 Dose: Not Given Documented by: ALVERTO Non-Admin Reason: Patient Refused Labs CBC & Chem 7: 01/31/21 08:19 02/05/21 11:31 Labs: Laboratory Results - last 24 hr 02/04/21 02/05/21 02/05/21 20:52 07:08 10:53 Anion Gap Estim Creat Clear Calc Estimated GFR POC Glucose 255 H 385 H* 312 H Random Glucose Calcium Phosphorus Magnesium Albumin Triglycerides 02/05/21 02/05/21 11:31 15:36 Anion Gap 15 Estim Creat Clear Calc 93.5 Estimated GFR > 60 POC Glucose 181 H Random Glucose 343 H Calcium 8.9 Phosphorus 2.4 L Magnesium 1.7 Albumin 3.8 Triglycerides 128 Assessment and Plan (1) Diabetic neuropathy associated with diabetes mellitus due to underlying condition: Status: Acute (2) Hypotonic neurogenic bladder: Status: Acute (3) CVA (cerebral vascular accident): Status: Acute (4) Encephalopathy acute: Status: Acute (5) Wheelchair bound: Status: Acute (6) HTN (hypertension): Status: Acute (7) Gastroparesis: Status: Acute (8) Chronic pain syndrome: Status: Acute Assessment and Plan: 60-year-old female with a past medical history of hypertension, hyperlipidemia, diabetes, diabetic gastroparesis, anxiety, chronic abdominal pain discharge from the hospital today after being evaluated for acute on chronic abdominal pain-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 Noted to have CVA on CT head.? Admitted for further management. # acute encephalopathy with periods Confusion/agitation now resolved patient more awake alert, somnolent after receiving anxiolytics and Dilaudid confusion likely multifactorial, ? opioid and benzo withdrawal, due to subacute CVA , no seizure-like activity noted, no evidence of infection normal UA and chest x-ray ? Will Continue Dilaudid IV and Ativan (in place of home xanax) and clonidine in the event of withdrawal, since patient is still not taking by mouth ? Psych has seen her and recommend Haldol 1 to 5 and ativan 1 mg as needed ? continue supportive care and follow clinical course #Subacute stroke in [employer] territory--manifestation right now? confusion and agitation ? Will obtain brain MRI study , CTA head and neck for further investigation when able to tolerate,not sure if MRI can be done given history gastric implantable device ? Will switch to by mouth medications when able to swallow ? Being followed closely by speech therapy will continue pureed/ clear liquid ? seen by PT they recommend short-term rehab when medically cleared and ultimately will require long-term care ? Continue iv PPN, less likely to tolerate NG feeding had a family meeting with daughter and granddaughter and discuss alternate route of feeding including G-tube placement patient started crying after hearing about G-tube daughter and granddaughter will think about # hypokalemia persistent low potassium, will replete and follow? Labs # history of chronic pain on high-dose narcotics at home, continue IV Dilaudid, as per daughter patient is somnolent at home mostly in bed watches TV has [employer] services 4-5 hours daily daughter is 1 of the deaf and hard of hearing teacher she feels the medication box and set up food for her sometime, patient is able to pivot and transfer herself from bed to wheelchair and is mostly by herself at home # history of depression with labile mood all by mouth meds on hold since patient spitting medications strongly recommend patient to start taking medications encourage family to be at bedside to help her take medications and food #Urinary retention:? Continue Kam as per urologist Dr. Osorio #History of chronic abdominal pain/diabetic gastroparesis:? Supportive care.? Patient to follow-up with gastroenterology as outpatient for further management.? Patient is on dilaudid at home,? Give IV dilaudid and IV ativan in ?place of Xanax and by mouth Dilaudid #History of diabetes:? While NPO, continue insulin Sliding scale dc IVF since on PPN #Hypertension:? Elevated blood pressures started on metoprolol IV 5 mg q.6 hours, will add hydralazine 5 mg q.6 hours for systolic BP greater than 160, and add nitropaste in place of Isordil #Left heel has hyperemia/skin changes:? Monitor for pressure ulcer, standard pressure ulcer care #Diet:? Clear liquids and pureed diet ,continue speech therapy eval Code status full code ? DVT prophylaxis with Lovenox Quality Stroke Does the patient have a stroke diagnosis?: No VTE Prior VTE?: No VTE Risk Level:: Medical - low VTE Device Contraindication: Treatment Not Indicated VTE Drug Contraindication: N/A - Med Ordered
[2021-02-05 17:59] LABS: Glucose, Whole Blood 274 mg/dL (60-115)
[2021-02-05] MEDS: HYDROmorphone HCl 1 MG/ML SYRINGE IVPUSH (18:09)
[2021-02-05] MEDS: Fat Emulsions 20% 250 ML 11 ML IVCONT (18:19)
[2021-02-05] MEDS: Haloperidol Lactate 5 MG/ML VIAL 2.5 MG IVPUSH (21:28)
[2021-02-05 21:43] LABS: Glucose, Whole Blood 308 mg/dL (60-115)
[2021-02-06] VITALS (13 sets, daily range): BP systolic 121–195; BP diastolic 59–86; PULSE 84–112; RESP 16–20; TEMP 36.8–38.6; O2SAT 93–99
[2021-02-06] MEDS: Fat Emulsions 20% 250 ML 11 ML IVCONT ×2 (05:57→18:42)
[2021-02-06 07:24] LABS: Glucose, Whole Blood 354 mg/dL (60-115)
[2021-02-06] MEDS: Insulin Lispro 100 UNIT/ML 3 ML VIAL SUBCUT ×4 (08:05→22:36)
[2021-02-06] MEDS: hydrALAZINE HCl 20 MG/ML VIAL 5 MG IVPUSH (08:07)
[2021-02-06] MEDS: LORazepam 2 MG/ML VIAL 1 MG IVPUSH (08:08)
[2021-02-06] MEDS: 0.9 % Sodium Chloride Flush 3 ML SYRINGE IVFLUSH ×2 (08:09→16:39)
[2021-02-06 08:19] LABS: Albumin Level 3.8 g/dL (3.5-5.0); Anion Gap 17 (12-20); Blood Urea Nitrogen 9 mg/dL (9-16); Calcium 8.6 mg/dL (8.4-10.2); Carbon Dioxide 26 mmol/L (22-29); Chloride 100 mmol/L (96-108); Estimated Glomerular Filt Rate > 60; Glucose Random 410 mg/dL (60-115); Magnesium 1.7 mg/dL (1.6-2.6); Phosphorus 3.4 mg/dL (2.7-4.5); Potassium 2.8 mmol/L (3.3-5.1); Sodium 140 mmol/L (135-145); Triglycerides 124 mg/dL
[2021-02-06] MEDS: Nitroglycerin 2 % Oint 1 GM Packet 0.5 INCH TRANSDERMA ×3 (08:20→22:37)
[2021-02-06] MEDS: Metoprolol Tartrate 5 MG in 0.9 % Sodium Chloride 50 ML 220 MG IV (09:29)
[2021-02-06] MEDS: Gabapentin 300 MG CAPSULE 600 MG PO ×2 (10:12→15:36)
[2021-02-06] MEDS: Topiramate 100 MG TABLET PO (10:13)
[2021-02-06] MEDS: ALPRAZolam 0.5 MG TABLET PO ×2 (10:13→15:37)
[2021-02-06] MEDS: Aspirin Enteric Coated 81 MG TABLET.DR PO (10:13)
[2021-02-06 11:21] LABS: Glucose, Whole Blood 358 mg/dL (60-115)
[2021-02-06] MEDS: Enoxaparin Sodium 40 MG/0.4 ML SYRINGE SUBCUT (11:40)
[2021-02-06] MEDS: Losartan Potassium 50 MG TABLET 100 MG PO (11:57)
--- NOTE | 2021-02-06 15:20 | P.PNIM_ITS ---
Subjective Subjective Date of Service: 02/06/21 Interval History: Events from last night noted, patient noted to be agitated required IV Haldol, Benadryl, this morning patient awake alert with periods of somnolence, answering questions appropriately, took by mouth medications, offers no acute specific complaints, make statements I am sick, wants to go home . Review of Systems General no headache, no dizziness no fever chills. CVS no chest pain, no palpitation. Respiratory cough, no shortness of breath Gastrointestinal no nausea, no vomiting, no abdominal pain Skin no rash Physical Exam Vital Signs: Vital Signs: Last Vital Signs Temp 101.4 F H 02/06/21 11:02 Pulse 96 02/06/21 11:57 Resp 20 02/06/21 11:02 BP 195/80 H 02/06/21 11:57 Pulse Ox 99 02/06/21 11:02 Body Mass Index 34.9 General: Awake norma rt answering quest ions appropriately Neck no JVD oral mucosa dry Resp:? CTA bilateral CVS : S1,S2,RRR GI:? A bdomen soft, bowel sounds present Sk in: No rash, redne ss around left jeff l, chronic, BKA of the right Neuro:? Symmetric face, m oving all 4 extrem ities, speech hiral r Extremities no edema on left Objective Data Active Medications Acetaminophen (Acetaminophen 325 Mg Tablet) 650 mg PO Q6H PRN PRN Reason: Pain, Mild (Pain Scale 1-3) Alprazolam (Alprazolam 0.5 Mg Tablet) 0.5 mg PO TID [facility] Last Admin: 02/06/21 10:13 Dose: 0.5 mg Documented by: ALVERTO Amitriptyline HCl (Amitriptyline Hcl 50 Mg Tablet) 50 mg PO BEDTIME [facility] Last Admin: 02/05/21 21:08 Dose: Not Given Documented by: RONALDO Non-Admin Reason: Patient Refused Aspirin (Aspirin Enteric Coated 81 Mg Tablet.) 81 mg PO DAILY [facility] Last Admin: 02/06/21 10:13 Dose: 81 mg Documented by: ALVERTO Atorvastatin Calcium (Atorvastatin Calcium 80 Mg Tablet) 80 mg PO BEDTIME [facility] Last Admin: 02/05/21 21:09 Dose: Not Given Documented by: RONALDO Non-Admin Reason: Patient Refused Dextrose (Dextrose 50 % 25 Gm/50 Ml Vial) 25 gm IVPUSH Q15M PRN; Protocol PRN Reason: per Hypoglycemia Standing Ord. Enoxaparin Sodium (Enoxaparin Sodium 40 Mg/0.4 Ml Syringe) 40 mg SUBCUT Q24H [facility] Last Admin: 02/06/21 11:40 Dose: 40 mg Documented by: ALVERTO Gabapentin (Gabapentin 300 Mg Capsule) 600 mg PO TID [facility] Last Admin: 02/06/21 10:12 Dose: 600 mg Documented by: ALVERTO Glucose (Glucose Gel 15 Gm Gel..Gram.) 15 gm PO Q15M PRN; Protocol PRN Reason: per Hypoglycemia Standing Ord. Hydralazine HCl (Hydralazine Hcl 20 Mg/Ml Vial) 5 mg IVPUSH Q6H PRN; Protocol PRN Reason: SBP> 160 Last Admin: 02/06/21 08:07 Dose: 5 mg Documented by: ALVERTO Hydromorphone HCl (Hydromorphone Hcl 1 Mg/Ml Syringe) 1 mg IVPUSH Q4H PRN; Protocol PRN Reason: Pain, Severe (Pain Scale 7-10) Last Admin: 02/05/21 18:09 Dose: 1 mg Documented by: ALVERTO Promethazine HCl 12.5 mg/ (Sodium Chloride) 50.5 mls @ 202 mls/hr IV Q4H PRN PRN Reason: Nausea and Vomiting Last Infusion: 02/02/21 12:41 Dose: 0 mls/hr Documented by: SANTO Metoprolol Tartrate 5 mg/ (Sodium Chloride) 55 mls @ 220 mls/hr IV Q6H [facility] Last Infusion: 02/06/21 10:22 Dose: 0 mls/hr Documented by: ALVERTO Multivitamins 10 ml/ Trace Metals 1 ml/ Amino Acids/Electrolytes/Dextrose 1,920 mls @ 80 mls/hr IV DAILY@1800 [facility] Stop: 02/06/21 17:59 Last Admin: 02/05/21 18:15 Dose: 80 mls/hr Documented by: ALVERTO Fat Emulsion Intravenous (Intralipid) 132 mls @ 11 mls/hr IVCONT BID@0600,1800 [facility] Stop: 02/06/21 17:59 Last Admin: 02/06/21 05:57 Dose: 11 mls/hr Documented by: RONALDO Multivitamins 10 ml/ Trace Metals 1 ml/ Amino Acids/Electrolytes/Dextrose 1,920 mls @ 80 mls/hr IV DAILY@1800 [facility] Stop: 02/07/21 17:59 Fat Emulsion Intravenous (Intralipid) 132 mls @ 11 mls/hr IVCONT BID@0600,1800 [facility] Stop: 02/07/21 17:59 Insulin Human Lispro (Insulin Lispro 100 Unit/Ml 3 Ml Vial) 0 unit SUBCUT QIDACHS [facility]; Protocol Last Admin: 02/06/21 11:56 Dose: 16 unit Documented by: ALVERTO Lorazepam (Lorazepam 2 Mg/Ml Vial) 1 mg IVPUSH Q6H PRN PRN Reason: Anxiety Losartan Potassium (Losartan Potassium 50 Mg Tablet) 100 mg PO DAILY [facility]; Prot ocol Last Admin: 02/06/21 11:57 Dose: 100 mg Documented by: ALVERTO Niacin (Niacin Er 250 Mg Tablet.Er) 1,000 mg PO BEDTIME [facility] Last Admin: 02/05/21 21:09 Dose: Not Given Documented by: RONALDO Non-Admin Reason: Patient Refused Nitroglycerin (Nitroglycerin 2 % Oint 1 Gm Packet) 0.5 inch TRANSDERMA RQ6H WHILE AWAKE [facility] Last Admin: 02/06/21 08:20 Dose: 0.5 inch Documented by: ALVERTO Omeprazole (Omeprazole 20 Mg Capsule.Dr) 20 mg PO BID@0630,1630 [facility] Last Admin: 02/06/21 05:54 Dose: Not Given Documented by: RONALDO Non-Admin Reason: Patient Refused Pharmacy Consult (Consult Rx Perform Med Rec) 1 each MISCELLANE ONCE PRN PRN Reason: Consult order Sodium Chloride (0.9 % Sodium Chloride Flush 3 Ml Syringe) 3 ml IVFLUSH QSHIFT [facility] Last Admin: 02/06/21 08:09 Dose: 3 ml Documented by: ALVERTO Topiramate (Topiramate 100 Mg Tablet) 100 mg PO BID [facility] Last Admin: 02/06/21 10:13 Dose: 100 mg Documented by: ALVERTO Labs CBC & Chem 7: 01/31/21 08:19 02/06/21 06:24 Labs: Laboratory Results - last 24 hr 02/05/21 02/05/21 02/05/21 15:36 17:54 21:39 Anion Gap Estim Creat Clear Calc Estimated GFR POC Glucose 181 H 274 H 308 H Random Glucose Calcium Phosphorus Magnesium Albumin Triglycerides 02/06/21 02/06/21 02/06/21 06:24 07:17 11:02 Anion Gap 17 Estim Creat Clear Calc 91.0 Estimated GFR > 60 POC Glucose 354 H* 358 H* Random Glucose 410 H* Calcium 8.6 Phosphorus 3.4 Magnesium 1.7 Albumin 3.8 Triglycerides 124 Assessment and Plan (1) Diabetic neuropathy associated with diabetes mellitus due to underlying condition: Status: Acute (2) Hypotonic neurogenic bladder: Status: Acute (3) CVA (cerebral vascular accident): Status: Acute (4) Encephalopathy acute: Status: Acute (5) Hyperglycemia: Status: Acute (6) Wheelchair bound: Status: Acute (7) Below knee amputation: Status: Acute (8) Anxiety: Status: Acute Assessment and Plan: 60-year-old female with a past medical history of hypertension, hyperlipidemia, diabetes, diabetic gastroparesis, anxiety, chronic abdominal pain discharge from the hospital today after being evaluated for acute on chronic abdominal pain- 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 Noted to have CVA on CT head.? Admitted for further management. # acute encephalopathy/delerium ? now resolved patient more awake alert at baseline, with periods of somnolence and agitation ? confusion/delirium was likely multifactorial, ? opioid and benzo withdrawal, due to subacute CVA , no seizure-like activity noted, no evidence of infection normal UA and chest x-ray ? Will Continue Dilaudid IV, and Ativan (in place of home xanax 1mg tid) have been taking by mouth medication with lot of encouragement Will eventually switch all medications to by mouth ? Psych has seen her and recommend Haldol 1 to 5 and ativan 1 mg as needed with episodes of agitation and anxiety ? continue supportive care and follow clinical course #Subacute stroke in [employer] territory Manifested with confusion and agitation ? Confusion resolved, patient has baseline behavioral issues with periods of jesus tation brain MRI study , CTA head and neck not obtained since patient continued to have periods of agitation somnolence unable to stay still,not sure if MRI can be done given history gastric implantable device ? Being followed closely by speech therapy will continue pureed/ clear liquid ? seen by PT they recommend short-term rehab when medically cleared and ultimately will require long-term care ? Continue iv PPN, until po intake improves ? had a family meeting with daughter and granddaughter and discuss alternate route of feeding including G-tube placement patient started crying after hearing about G-tube daughter and granddaughter will? think about Patient has started eating but still minimal intake Will switch back to by mouth medications # hypokalemia persistent low potassium, will replete and follow? Labs #? history of chronic pain on high-dose narcotics at home, continue IV Dilaudid, as per daughter patient is somnolent at home mostly in bed watches TV has [employer] services 4-5 hours daily daughter is 1 of the social services assistant ?? daughter fills the medication box and set up food for her sometime, patient is able to pivot and transfer herself from bed to wheelchair and is mostly by he rself at home. #? history of depression with labile mood Has been placed on all by mouth medication,strongly recommend patient to start taking medications, requested family to be at bedside to help her take medications and food #Urinary retention:? Continue Kam as per urologist Dr. Osorio #History of chronic abdominal pain/diabetic gastroparesis:? Supportive care.? Patient to follow-up with gastroenterology as outpatient for further management.? Patient is on dilaudid at home,? Give IV dilaudid and IV ativan in ?place of Xanax and by mouth Dilaudid, since still difficult to administer by mouth meds #History of diabetes:? continue insulin Sliding scale on PPN, decreased by mouth intake #Hypertension:? Elevated blood pressures placed back on metoprolol XL 100 mg b.i.d., losartan 100 mg, continue iv hydralazine 5 mg q.6 hours for systolic BP greater than 160, and nitropaste in place of Isordil Will eventually switch back to by mouth Isordil and hydralazine once easy to give by mouth medications. #Left heel hyperemia/skin changes:? Monitor for pressure ulcer, standard press ure ulcer care #Diet:? Clear liquids and pureed diet ,continue speech therapy eval Code status full code ? DVT prophylaxis with Lovenox Quality Stroke Does the patient have a stroke diagnosis?: No VTE Prior VTE?: No VTE Risk Level:: Medical - low VTE Device Contraindication: Treatment Not Indicated VTE Drug Contraindication: N/A - Med Ordered
[2021-02-06] MEDS: Omeprazole 20 MG CAPSULE.DR PO (15:37)
[2021-02-06 15:58] LABS: Glucose, Whole Blood 311 mg/dL (60-115)
[2021-02-06] MEDS: Potassium Chloride/H20 10 MEQ/100 ML PIGGYBACK 100 MEQ IV ×2 (16:31→17:32)
[2021-02-06 20:07] LABS: Glucose, Whole Blood 206 mg/dL (60-115)
[2021-02-07] VITALS (9 sets, daily range): BP systolic 111–158; BP diastolic 44–70; PULSE 72–104; RESP 18; TEMP 36.5–37.4; O2SAT 96–98
[2021-02-07] MEDS: Potassium Chloride/H20 10 MEQ/100 ML PIGGYBACK 100 MEQ IV (02:17)
[2021-02-07] MEDS: Potassium Chloride Packet 20 MEQ PACKET 40 MEQ PO (03:39)
[2021-02-07] MEDS: Fat Emulsions 20% 250 ML 11 ML IVCONT (06:07)
[2021-02-07] MEDS: Omeprazole 20 MG CAPSULE.DR PO ×2 (06:11→15:09)
[2021-02-07 07:06] LABS: Glucose, Whole Blood 407 mg/dL (60-115)
[2021-02-07] MEDS: Insulin Lispro 100 UNIT/ML 3 ML VIAL SUBCUT ×4 (07:38→20:54)
[2021-02-07] MEDS: 0.9 % Sodium Chloride Flush 3 ML SYRINGE IVFLUSH ×2 (07:39→15:13)
[2021-02-07] MEDS: Losartan Potassium 50 MG TABLET 100 MG PO (07:40)
[2021-02-07] MEDS: Topiramate 100 MG TABLET PO ×2 (07:40→20:20)
[2021-02-07] MEDS: Potassium Chloride ER 20 MEQ TAB.ER.PRT 40 MEQ PO (07:42)
[2021-02-07] MEDS: Gabapentin 300 MG CAPSULE 600 MG PO ×3 (07:42→20:21)
[2021-02-07] MEDS: Metoprolol Succinate ER 100 MG TAB.ER.24H PO ×2 (07:43→20:21)
[2021-02-07] MEDS: Aspirin Enteric Coated 81 MG TABLET.DR PO (07:43)
[2021-02-07] MEDS: ALPRAZolam 0.5 MG TABLET PO ×3 (07:44→20:21)
[2021-02-07] MEDS: Nitroglycerin 2 % Oint 1 GM Packet 0.5 INCH TRANSDERMA (07:52)
[2021-02-07 08:00] LABS: Anion Gap 15 (12-20); Blood Urea Nitrogen 11 mg/dL (9-16); Calcium 8.6 mg/dL (8.4-10.2); Carbon Dioxide 23 mmol/L (22-29); Chloride 104 mmol/L (96-108); Creatinine Clr Calc Pharmacy 98.9; Estimated Glomerular Filt Rate > 60; Glucose Random 423 mg/dL (60-115); Magnesium 1.9 mg/dL (1.6-2.6); Phosphorus 3.5 mg/dL (2.7-4.5); Potassium 3.4 mmol/L (3.3-5.1); Sodium 139 mmol/L (135-145)
--- NOTE | 2021-02-07 09:38 | P.PNIM_ITS ---
Subjective Subjective Date of Service: 02/07/21 Interval History: Being follow for subacute CVA, patient awake alert seems to be at her baseline complaining of being weak and sick, feels she has no feeling in hands, refusing to eat pureed and asking for regular food, offers no complaints of pain, no shortness of breath. Review of Systems General no headache, no dizziness no fever chills.? CVS no chest pain, no palpitation.? Respiratory cough, no shortness of breath Gastrointestinal no nausea, no vomiting, no abdominal pain Skin no rash Review of Systems: Yes all other systems are reviewed and are negative Physical Exam Vital Signs: Vital Signs: Last Vital Signs Temp 98.1 F 02/07/21 06:55 Pulse 104 H 02/07/21 07:43 Resp 18 02/07/21 06:55 BP 156/70 H 02/07/21 07:43 Pulse Ox 96 02/07/21 06:55 Body Mass Index 34.9 General: Awake alert answering questions appropriately Neck no JVD oral?mucosa dry Resp:??CTA bilateral CVS: S1,S2,RRR GI:? Abdomen soft, bowel?sounds present Skin: No rash, redness around left heel, chronic, BKA of?the right Neuro:??Symmetric face, speech clear, no upper extremity weakness, left lower extremity good strength Extremities no edema on left Objective Data Active Medications Acetaminophen (Acetaminophen 325 Mg Tablet) 650 mg PO Q6H PRN PRN Reason: Pain, Mild (Pain Scale 1-3) Alprazolam (Alprazolam 0.5 Mg Tablet) 0.5 mg PO TID [facility] Last Admin: 02/07/21 07:44 Dose: 0.5 mg Documented by: ALVERTO Amitriptyline HCl (Amitriptyline Hcl 50 Mg Tablet) 50 mg PO BEDTIME [facility] Last Admin: 02/06/21 23:14 Dose: Not Given Documented by: RONALDO Non-Admin Reason: Patient Refused Aspirin (Aspirin Enteric Coated 81 Mg Tablet.) 81 mg PO DAILY [facility] Last Admin: 02/07/21 07:43 Dose: 81 mg Documented by: ALVERTO Atorvastatin Calcium (Atorvastatin Calcium 80 Mg Tablet) 80 mg PO BEDTIME [facility] Last Admin: 02/06/21 23:15 Dose: Not Given Documented by: RONALDO Non-Admin Reason: Patient Refused Dextrose (Dextrose 50 % 25 Gm/50 Ml Vial) 25 gm IVPUSH Q15M PRN; Protocol PRN Reason: per Hypoglycemia Standing Ord. Enoxaparin Sodium (Enoxaparin Sodium 40 Mg/0.4 Ml Syringe) 40 mg SUBCUT Q24H [facility] Last Admin: 02/06/21 11:40 Dose: 40 mg Documented by: ALVERTO Gabapentin (Gabapentin 300 Mg Capsule) 600 mg PO TID [facility] Last Admin: 02/07/21 07:42 Dose: 600 mg Documented by: ALVERTO Glucose (Glucose Gel 15 Gm Gel..Gram.) 15 gm PO Q15M PRN; Protocol PRN Reason: per Hypoglycemia Standing Ord. Hydralazine HCl (Hydralazine Hcl 20 Mg/Ml Vial) 5 mg IVPUSH Q6H PRN; Protocol PRN Reason: SBP> 160 Last Admin: 02/06/21 08:07 Dose: 5 mg Documented by: ALVERTO Hydromorphone HCl (Hydromorphone Hcl 2 Mg Tablet) 1 mg PO Q6H PRN PRN Reason: Pain, Severe (Pain Scale 7-10) Promethazine HCl 12.5 mg/ (Sodium Chloride) 50.5 mls @ 202 mls/hr IV Q4H PRN PRN Reason: Nausea and Vomiting Last Infusion: 02/02/21 12:41 Dose: 0 mls/hr Documented by: SANTO Multivitamins 10 ml/ Trace Metals 1 ml/ Amino Acids/Electrolytes/Dextrose 1,920 mls @ 80 mls/hr IV DAILY@1800 [facility] Stop: 02/07/21 17:59 Last Infusion: 02/07/21 08:48 Dose: 0 mls/hr Documented by: ADINA Fat Emulsion Intravenous (Intralipid) 132 mls @ 11 mls/hr IVCONT BID@0600,1800 [facility] Stop: 02/07/21 17:59 Last Infusion: 02/07/21 08:47 Dose: 0 mls/hr Documented by: ADINA Insulin Human Lispro (Insulin Lispro 100 Unit/Ml 3 Ml Vial) 0 unit SUBCUT QIDACHS [facility]; Protocol Last Admin: 02/07/21 07:38 Dose: 16 unit Documented by: ALVERTO Isosorbide Mononitrate (Isosorbide Mononitrate 30 Mg Tab.Er.24h) 30 mg PO DAILY [facility]; Protocol Losartan Potassium (Losartan Potassium 50 Mg Tablet) 100 mg PO DAILY [facility]; Protocol Last Admin: 02/07/21 07:40 Dose: 100 mg Documented by: ALVERTO Melatonin (Melatonin 3 Mg Tablet) 6 mg PO BEDTIME [facility] Last Admin: 02/06/21 23:15 Dose: Not Given Documented by: RONALDO Non-Admin Reason: Patient Refused Metoprolol Succinate (Metoprolol Succinate Er 100 Mg Tab.Er.24h) 100 mg PO BID [facility]; Protocol Last Admin: 02/07/21 07:43 Dose: 100 mg Documented by: ALVERTO Niacin (Niacin Er 250 Mg Tablet.Er) 1,000 mg PO BEDTIME [facility] Last Admin: 02/06/21 23:17 Dose: Not Given Documented by: RONALDO Non-Admin Reason: Patient Asleep Omeprazole (Omeprazole 20 Mg Capsule.Dr) 20 mg PO BID@0630,1630 [facility] Last Admin: 02/07/21 06:11 Dose: 20 mg Documented by: RONALDO Pharmacy Consult (Consult Rx Perform Med Rec) 1 each MISCELLANE ONCE PRN PRN Reason: Consult order Potassium Chloride (Potassium Chloride Er 20 Meq Tab.Er.Prt) 40 meq PO BID [facility] Last Admin: 02/07/21 07:42 Dose: 40 meq Documented by: ALVERTO Sodium Chloride (0.9 % Sodium Chloride Flush 3 Ml Syringe) 3 ml IVFLUSH QSHIFT [facility] Last Admin: 02/07/21 07:39 Dose: 3 ml Documented by: ALVERTO Topiramate (Topiramate 100 Mg Tablet) 100 mg PO BID [facility] Last Admin: 02/07/21 07:40 Dose: 100 mg Documented by: ALVERTO Labs CBC & Chem 7: 01/31/21 08:19 02/07/21 06:36 Labs: Laboratory Results - last 24 hr 02/06/21 02/06/21 02/06/21 11:02 15:45 20:03 Anion Gap Estim Creat Clear Calc Estimated GFR POC Glucose 358 H* 311 H 206 H Random Glucose Calcium Phosphorus Magnesium 02/07/21 02/07/21 06:36 07:02 Anion Gap 15 Estim Creat Clear Calc 98.9 Estimated GFR > 60 POC Glucose 407 H* Random Glucose 423 H* Calcium 8.6 Phosphorus 3.5 Magnesium 1.9 Assessment and Plan (1) Delirium due to another medical condition: Status: Acute (2) CVA (cerebral vascular accident): Status: Acute (3) Encephalopathy acute: Status: Acute (4) Hyperglycemia: Status: Acute (5) Wheelchair bound: Status: Acute (6) HTN (hypertension): Status: Acute (7) Depression: Status: Acute (8) Below knee amputation: Status: Acute (9) Anxiety: Status: Acute Assessment and Plan: 60-year-old female with a past medical history of hypertension, hyperlipidemia, diabetes, diabetic gastroparesis, anxiety, chronic abdominal pain discharge from the hospital today after being evaluated for acute on chronic abdominal pain- 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 Noted to have CVA on CT head.? Admitted for further management. # acute encephalopathy/delerium ? now resolved ,awake alert at baseline ? confusion/delirium was likely multifactorial, ? opioid and benzo withdrawal, due to subacute CVA , no seizure-like activity noted, no evidence of infection normal UA and chest x-ray ? Will place her back on all home medication ? 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 Manifested with confusion and agitation ? Now resolved ? brain MRI study , CTA head and neck not obtained since patient continued to have periods of agitation somnolence unable to stay still,not sure if MRI can be done given history gastric implantable device ? speech rec pureed/ clear liquid, patient refusing pureed Will advanced to regular diabetic diet ? PT recommend short-term rehab when medically cleared and ultimately will require long-term care ? will dc iv PPN,encourage po intake. ? # hypokalemia resolved #? 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 patient at baseline pivot and transfer herself from bed to wheelchair and is mostly by herself at home. #? history of depression with labile mood/anxiety ? ? All baseline meds have been resumed except does use of Xanax reduced to 0.5 mg t.i.d. to avoid somnolence #Urinary retention:? Continue Kam as per urologist Dr. Osorio #History of chronic abdominal pain/diabetic gastroparesis:? Supportive care.? Patient to follow-up with gastroenterology as outpatient for further management.? #History of diabetes:? continue insulin Sliding scale on Humulin R U500 at home will switch to Lantus 20 units b.i.d. and increase dose #Hypertension: Elevated blood pressures, started back on home meds metoprolol XL 100 mg b.i.d., losartan 100 mg, Will DC nitropaste start isordil 30mg continue iv hydralazine 5 mg q.6 hours prn ? #Left heel hyperemia/skin changes:? Monitor for pressure ulcer, standard pressure ulcer care #Diet:? Clear liquids and pureed diet ,continue speech therapy eval Code status full code ? DVT prophylaxis with Lovenox Quality Stroke Does the patient have a stroke diagnosis?: No VTE Prior VTE?: No VTE Risk Level:: Medical - low VTE Device Contraindication: Treatment Not Indicated VTE Drug Contraindication: N/A - Med Ordered
[2021-02-07] MEDS: Insulin Glargine,Hum.rec.anlog 100 UNIT/ML 10 ML VIAL 20 UNIT SUBCUT ×2 (10:30→20:53)
[2021-02-07 11:03] LABS: Glucose, Whole Blood 288 mg/dL (60-115)
[2021-02-07 11:13] LABS: Glucose, Whole Blood 294 mg/dL (60-115)
[2021-02-07] MEDS: Enoxaparin Sodium 40 MG/0.4 ML SYRINGE SUBCUT (11:51)
[2021-02-07 16:33] LABS: Glucose, Whole Blood 332 mg/dL (60-115)
[2021-02-07] MEDS: Melatonin 3 MG TABLET 6 MG PO (20:20)
[2021-02-07] MEDS: Amitriptyline HCl 50 MG TABLET PO (20:21)
[2021-02-07] MEDS: Atorvastatin Calcium 80 MG TABLET PO (20:26)
[2021-02-07 20:28] LABS: Glucose, Whole Blood 238 mg/dL (60-115)
[2021-02-08] VITALS (11 sets, daily range): BP systolic 97–168; BP diastolic 40–71; PULSE 67–88; RESP 17–20; TEMP 36.3–37.1; O2SAT 95–99
[2021-02-08] MEDS: Acetaminophen 325 MG TABLET 650 MG PO ×2 (00:52→13:35)
[2021-02-08] MEDS: 0.9 % Sodium Chloride Flush 3 ML SYRINGE IVFLUSH ×3 (01:49→17:09)
[2021-02-08] MEDS: HYDROmorphone HCl 2 MG TABLET 1 MG PO (03:40)
[2021-02-08 06:44] LABS: Anion Gap 13 (12-20); Blood Urea Nitrogen 13 mg/dL (9-16); Calcium 8.3 mg/dL (8.4-10.2); Carbon Dioxide 22 mmol/L (22-29); Chloride 108 mmol/L (96-108); Creatinine Clr Calc Pharmacy 88.7; Estimated Glomerular Filt Rate > 60; Glucose Random 224 mg/dL (60-115); Potassium 3.3 mmol/L (3.3-5.1); Sodium 140 mmol/L (135-145)
[2021-02-08 07:34] LABS: Glucose, Whole Blood 231 mg/dL (60-115)
[2021-02-08] MEDS: ALPRAZolam 0.5 MG TABLET PO ×2 (08:16→15:54)
[2021-02-08] MEDS: Losartan Potassium 50 MG TABLET 100 MG PO (08:17)
[2021-02-08] MEDS: Gabapentin 300 MG CAPSULE 600 MG PO ×2 (08:17→15:54)
[2021-02-08] MEDS: Isosorbide Mononitrate 30 MG TAB.ER.24H PO (08:18)
[2021-02-08] MEDS: Aspirin Enteric Coated 81 MG TABLET.DR PO (08:18)
[2021-02-08] MEDS: Topiramate 100 MG TABLET PO (08:18)
[2021-02-08] MEDS: Metoprolol Succinate ER 100 MG TAB.ER.24H PO (08:19)
[2021-02-08] MEDS: Insulin Glargine,Hum.rec.anlog 100 UNIT/ML 10 ML VIAL 20 UNIT SUBCUT (08:22)
[2021-02-08] MEDS: Insulin Lispro 100 UNIT/ML 3 ML VIAL SUBCUT ×3 (08:22→17:08)
--- NOTE | 2021-02-08 11:16 | MHC.CLN ---
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
[2021-02-08 11:25] LABS: Glucose, Whole Blood 178 mg/dL (60-115)
--- NOTE | 2021-02-08 11:31 | MHC.CM.PN ---
pt dcd home today no skilled services ordered by
--- NOTE | 2021-02-08 11:43 | MHC.CM.PN ---
per rounds pts sitter will be removed pt continues to need str possible dc ready for dc tues
[2021-02-08] MEDS: Enoxaparin Sodium 40 MG/0.4 ML SYRINGE SUBCUT (11:49)
--- NOTE | 2021-02-08 12:18 | P.PNIM_ITS ---
Subjective Subjective Date of Service: 02/09/21 Interval History: patient seen and examined this AM, her RN is bedside pt reports feeling weak d/w her about the need for STR -- initially she said no, but now agreeable Review of Systems ROS negative except interval history Physical Exam Vital Signs: Vital Signs: Last Vital Signs Temp 98.8 F 02/08/21 11:10 Pulse 72 02/08/21 11:10 Resp 20 02/08/21 11:10 BP 168/71 H 02/08/21 11:10 Pulse Ox 95 02/08/21 11:10 Body Mass Index 34.9 Const: Other: General: Awake alert answering questions appropriately Neck no JVD oral?mucosa dry Resp:??CTA bilateral CVS: S1,S2,RRR GI:? Abdomen soft, bowel?sounds present Skin: No rash, redness around left heel, chronic, BKA of?the right Neuro:??Symmetric face, speech clear, no upper extremity weakness, left lower extremity good strength Extremities no edema on left Objective Data Active Medications Acetaminophen (Acetaminophen 325 Mg Tablet) 650 mg PO Q6H PRN PRN Reason: Pain, Mild (Pain Scale 1-3) Last Admin: 02/08/21 00:52 Dose: 650 mg Documented by: SHAYY Alprazolam (Alprazolam 0.5 Mg Tablet) 0.5 mg PO TID [facility] Last Admin: 02/08/21 08:16 Dose: 0.5 mg Documented by: ALVERTO Amitriptyline HCl (Amitriptyline Hcl 50 Mg Tablet) 50 mg PO BEDTIME [facility] Last Admin: 02/07/21 20:21 Dose: 50 mg Documented by: SHAYY Aspirin (Aspirin Enteric Coated 81 Mg Tablet.Dr) 81 mg PO DAILY [facility] Last Admin: 02/08/21 08:18 Dose: 81 mg Documented by: ALVERTO Atorvastatin Calcium (Atorvastatin Calcium 80 Mg Tablet) 80 mg PO BEDTIME [facility] Last Admin: 02/07/21 20:26 Dose: 80 mg Documented by: SHAYY Dextrose (Dextrose 50 % 25 Gm/50 Ml Vial) 25 gm IVPUSH Q15M PRN; Protocol PRN Reason: per Hypoglycemia Standing Ord. Enoxaparin Sodium (Enoxaparin Sodium 40 Mg/0.4 Ml Syringe) 40 mg SUBCUT Q24H [facility] Last Admin: 02/08/21 11:49 Dose: 40 mg Documented by: ALVERTO Gabapentin (Gabapentin 300 Mg Capsule) 600 mg PO TID [facility] Last Admin: 02/08/21 08:17 Dose: 600 mg Documented by: ALVERTO Glucose (Glucose Gel 15 Gm Gel..Gram.) 15 gm PO Q15M PRN; Protocol PRN Reason: per Hypoglycemia Standing Ord. Hydralazine HCl (Hydralazine Hcl 20 Mg/Ml Vial) 5 mg IVPUSH Q6H PRN; Protocol PRN Reason: SBP> 160 Last Admin: 02/06/21 08:07 Dose: 5 mg Documented by: ALVERTO Hydromorphone HCl (Hydromorphone Hcl 2 Mg Tablet) 1 mg PO Q6H PRN PRN Reason: Pain, Severe (Pain Scale 7-10) Last Admin: 02/08/21 03:40 Dose: 1 mg Documented by: SHAYY Promethazine HCl 12.5 mg/ (Sodium Chloride) 50.5 mls @ 202 mls/hr IV Q4H PRN PRN Reason: Nausea and Vomiting Last Infusion: 02/08/21 02:30 Dose: 0 mls/hr Documented by: SHAYY Insulin Glargine (Insulin Glargine,Hum.Rec.Anlog 100 Unit/Ml 10 Ml Vial) 20 unit SUBCUT BID [facility] Last Admin: 02/08/21 08:22 Dose: 20 unit Documented by: ALVERTO Insulin Human Lispro (Insulin Lispro 100 Unit/Ml 3 Ml Vial) 0 unit SUBCUT QIDACHS [facility]; Protocol Last Admin: 02/08/21 11:48 Dose: 6 unit Documented by: ALVERTO Isosorbide Mononitrate (Isosorbide Mononitrate 30 Mg Tab.Er.24h) 30 mg PO DAILY [facility]; Protocol Last Admin: 02/08/21 08:18 Dose: 30 mg Documented by: ALVERTO Losartan Potassium (Losartan Potassium 50 Mg Tablet) 100 mg PO DAILY [facility]; Protocol Last Admin: 02/08/21 08:17 Dose: 100 mg Documented by: ALVERTO Melatonin (Melatonin 3 Mg Tablet) 6 mg PO BEDTIME [facility] Last Admin: 02/07/21 20:20 Dose: 6 mg Documented by: SHAYY Metoprolol Succinate (Metoprolol Succinate Er 100 Mg Tab.Er.24h) 100 mg PO BID [facility]; Protocol Last Admin: 02/08/21 08:19 Dose: 100 mg Documented by: ALVERTO Niacin (Niacin Er 250 Mg Tablet.Er) 1,000 mg PO BEDTIME [facility] Last Admin: 02/07/21 20:22 Dose: 1,000 mg Documented by: SHAYY Omeprazole (Omeprazole 20 Mg Capsule.Dr) 20 mg PO BID@0630,1630 [facility] Last Admin: 02/08/21 06:06 Dose: Not Given Documented by: SHAYY Non-Admin Reason: pt just fell asleep Pharmacy Consult (Consult Rx Perform Med Rec) 1 each MISCELLANE ONCE PRN PRN Reason: Consult order Sodium Chloride (0.9 % Sodium Chloride Flush 3 Ml Syringe) 3 ml IVFLUSH QSHIFT [facility] Last Admin: 02/08/21 08:23 Dose: 3 ml Documented by: ALVERTO Topiramate (Topiramate 100 Mg Tablet) 100 mg PO BID [facility] Last Admin: 02/08/21 08:18 Dose: 100 mg Documented by: ALVERTO Labs CBC & Chem 7: 01/31/21 08:19 02/09/21 05:49 Labs: Laboratory Results - last 24 hr 02/07/21 02/07/21 02/08/21 16:23 20:21 05:54 Anion Gap 13 Estim Creat Clear Calc 88.7 Estimated GFR > 60 POC Glucose 332 H 238 H Random Glucose 224 H Calcium 8.3 L 02/08/21 02/08/21 07:30 11:21 Anion Gap Estim Creat Clear Calc Estimated GFR POC Glucose 231 H 178 H Random Glucose Calcium Assessment and Plan (1) Delirium due to another medical condition: Status: Acute (2) CVA (cerebral vascular accident): Status: Acute (3) Encephalopathy acute: Status: Acute (4) Hyperglycemia: Status: Acute (5) Wheelchair bound: Status: Acute (6) HTN (hypertension): Status: Acute (7) Depression: Status: Acute (8) Below knee amputation: Status: Acute (9) Anxiety: Status: Acute Assessment and Plan: 60-year-old female with a past medical history of hypertension, hyperlipidemia, diabetes, diabetic gastroparesis, anxiety, chronic abdominal pain discharge from the hospital today after being evaluated for acute on chronic abdominal pain-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 Noted to have CVA on CT head.? Admitted for further management. # acute encephalopathy/delerium ? now resolved ,awake alert at baseline ? confusion/delirium was likely multifactorial, ? opioid and benzo withdrawal, due to subacute CVA , no seizure-like activity noted, no evidence of infection normal UA and chest x-ray ? Will place her back on all home medication ? Psych has seen her and recommend Haldol 1 to 5 and ativan 1 mg as needed with episodes of agitation and anxiety #Subacute stroke in [employer] CR[employer] OPERATOR territory ? Manifested with confusion and agitation ? Unable to tolerate MRI brain -- per d/w neurology previously, unlikely to change mgmt ? speech rec pureed/ clear liquid, patient refusing pureed Will advanced to regular diabetic diet ? PT recommend short-term rehab when medically cleared and ultimately will require long-term care oral intake ? # hypokalemia resolved #? history of chronic pain on high-dose narcotics at home, DC IV Dilaudid and place on by mouth Dilaudid 1 mg q.6 hours as needed at home takes 2 mg q.6 hours as per daughter patient is somnolent at home mostly in bed watches TV has [employer] CR[employer] OPERATOR services 4-5 hours daily daughter is 1 of the used car manager ?? patient at baseline pivot and transfer herself from bed to wheelchair and is mostly by herself at home. #? history of depression with labile mood/anxiety ? ? All baseline meds have been resumed except does use of Xanax reduced to 0.5 mg t.i.d. to avoid somnolence #Urinary retention:? Continue Kam as per urologist Dr. Osorio #History of chronic abdominal pain/diabetic gastroparesis:? Supportive care.? Patient to follow-up with gastroenterology as outpatient for further management.? #History of diabetes:? continue insulin Sliding scale on Humulin R U500 at home will switch to Lantus 20 units b.i.d. and increase dose #Hypertension: Elevated blood pressures, started back on home meds metoprolol XL 100 mg b.i.d., losartan 100 mg, Will DC nitropaste start isordil 30mg continue iv hydralazine 5 mg q.6 hours prn ? #Left heel hyperemia/skin changes:? Monitor for pressure ulcer, standard pressure ulcer care #Diet:? Clear liquids and pureed diet ,continue speech therapy eval Code status full code ? DVT prophylaxis with Lovenox Quality Stroke Does the patient have a stroke diagnosis?: No VTE Prior VTE?: No VTE Risk Level:: Medical - low VTE Device Contraindication: Treatment Not Indicated VTE Drug Contraindication: N/A - Med Ordered
[2021-02-08 16:18] LABS: Glucose, Whole Blood 216 mg/dL (60-115)
[2021-02-08] MEDS: Omeprazole 20 MG CAPSULE.DR PO (17:08)
[2021-02-08 20:17] LABS: Glucose, Whole Blood 157 mg/dL (60-115)
[2021-02-09] VITALS (10 sets, daily range): BP systolic 104–150; BP diastolic 51–84; PULSE 76–89; RESP 18–20; TEMP 36.7–37.3; O2SAT 96–98
[2021-02-09] MEDS: 0.9 % Sodium Chloride Flush 3 ML SYRINGE IVFLUSH ×4 (02:42→20:04)
[2021-02-09] MEDS: HYDROmorphone HCl 2 MG TABLET 1 MG PO ×3 (02:43→18:49)
--- NOTE | 2021-02-09 06:05 | PC.NURSE ---
pt very restless and crying throughtout shift, pt refused all medication this shift except for iv promethazine and PO dilaudid, pt also refusing most nursing care. This morning pt multple attempts out of bed,crying ressitive to care. THis Rn and CC at bedside. MD made aware ?give moring xanax early. okay per . pt continues to refuse medications.
[2021-02-09 06:50] LABS: Anion Gap 16 (12-20); Blood Urea Nitrogen 10 mg/dL (9-16); Calcium 8.9 mg/dL (8.4-10.2); Carbon Dioxide 21 mmol/L (22-29); Chloride 109 mmol/L (96-108); Creatinine Clr Calc Pharmacy 93.5; Estimated Glomerular Filt Rate > 60; Glucose Random 200 mg/dL (60-115); Potassium 3.8 mmol/L (3.3-5.1); Sodium 142 mmol/L (135-145)
[2021-02-09 07:17] LABS: Glucose, Whole Blood 182 mg/dL (60-115)
[2021-02-09] MEDS: ALPRAZolam 0.5 MG TABLET PO ×2 (08:34→15:02)
[2021-02-09] MEDS: Gabapentin 300 MG CAPSULE 600 MG PO ×3 (08:34→19:55)
[2021-02-09] MEDS: Aspirin Enteric Coated 81 MG TABLET.DR PO (08:34)
[2021-02-09] MEDS: Isosorbide Mononitrate 30 MG TAB.ER.24H PO (08:34)
[2021-02-09] MEDS: Insulin Lispro 100 UNIT/ML 3 ML VIAL SUBCUT ×3 (08:35→20:28)
[2021-02-09] MEDS: Losartan Potassium 50 MG TABLET 100 MG PO (08:35)
[2021-02-09] MEDS: Topiramate 100 MG TABLET PO ×2 (08:35→19:55)
[2021-02-09] MEDS: Metoprolol Succinate ER 100 MG TAB.ER.24H PO ×2 (08:35→19:54)
[2021-02-09] MEDS: Insulin Glargine,Hum.rec.anlog 100 UNIT/ML 10 ML VIAL 20 UNIT SUBCUT ×2 (08:36→19:55)
[2021-02-09] MEDS: Acetaminophen 325 MG TABLET 650 MG PO ×2 (08:54→19:57)
--- NOTE | 2021-02-09 09:58 | HO.PM.IMPN ---
Subjective Subjective Date of Service: 02/09/21 Interval History: pt seen and examined no new issues reported reports chronic pain Review of Systems ROS negative except interval history Physical Exam Vital Signs: Vital Signs: Last Vital Signs Temp 98.1 F 02/09/21 07:19 Pulse 89 02/09/21 09:47 Resp 20 02/09/21 07:19 BP 150/66 H 02/09/21 09:47 Pulse Ox 96 02/09/21 07:19 Body Mass Index 34.9 Const: Other: General: Awake alert answering questions appropriately Neck no JVD oral?mucosa dry Resp:??CTA bilateral CVS: S1,S2,RRR GI:? Abdomen soft, bowel?sounds present Skin: No rash, redness around left heel, chronic, BKA of?the right Neuro:??Symmetric face, speech clear, no upper extremity weakness, left lower extremity good strength Extremities no edema on left Objective Data Active Medications Acetaminophen (Acetaminophen 325 Mg Tablet) 650 mg PO Q6H PRN PRN Reason: Pain, Mild (Pain Scale 1-3) Last Admin: 02/09/21 08:54 Dose: 650 mg Documented by: TED Alprazolam (Alprazolam 0.5 Mg Tablet) 0.5 mg PO TID [facility] Last Admin: 02/09/21 08:34 Dose: 0.5 mg Documented by: TED Amitriptyline HCl (Amitriptyline Hcl 50 Mg Tablet) 50 mg PO BEDTIME [facility] Last Admin: 02/08/21 20:32 Dose: Not Given Documented by: MARILIN Non-Admin Reason: Patient Refused Aspirin (Aspirin Enteric Coated 81 Mg Tablet.) 81 mg PO DAILY [facility] Last Admin: 02/09/21 08:34 Dose: 81 mg Documented by: TED Atorvastatin Calcium (Atorvastatin Calcium 80 Mg Tablet) 80 mg PO BEDTIME [facility] Last Admin: 02/08/21 20:32 Dose: Not Given Documented by: MARILIN Non-Admin Reason: Patient Refused Dextrose (Dextrose 50 % 25 Gm/50 Ml Vial) 25 gm IVPUSH Q15M PRN; Protocol PRN Reason: per Hypoglycemia Standing Ord. Enoxaparin Sodium (Enoxaparin Sodium 40 Mg/0.4 Ml Syringe) 40 mg SUBCUT Q24H [facility] Last Admin: 02/08/21 11:49 Dose: 40 mg Documented by: ALVERTO Gabapentin (Gabapentin 300 Mg Capsule) 600 mg PO TID [facility] Last Admin: 02/09/21 08:34 Dose: 600 mg Documented by: TED Glucose (Glucose Gel 15 Gm Gel..Gram.) 15 gm PO Q15M PRN; Protocol PRN Reason: per Hypoglycemia Standing Ord. Hydralazine HCl (Hydralazine Hcl 20 Mg/Ml Vial) 5 mg IVPUSH Q6H PRN; Protocol PRN Reason: SBP> 160 Last Admin: 02/06/21 08:07 Dose: 5 mg Documented by: AVLERTO Hydromorphone HCl (Hydromorphone Hcl 2 Mg Tablet) 1 mg PO Q6H PRN PRN Reason: Pain, Severe (Pain Scale 7-10) Last Admin: 02/09/21 02:43 Dose: 1 mg Documented by: MARILIN Promethazine HCl 12.5 mg/ (Sodium Chloride) 50.5 mls @ 202 mls/hr IV Q4H PRN PRN Reason: Nausea and Vomiting Last Infusion: 02/08/21 22:30 Dose: 0 mls/hr Documented by: MARILIN Insulin Glargine (Insulin Glargine,Hum.Rec.Anlog 100 Unit/Ml 10 Ml Vial) 20 unit SUBCUT BID [facility] Last Admin: 02/09/21 08:36 Dose: 20 unit Documented by: TED Insulin Human Lispro (Insulin Lispro 100 Unit/Ml 3 Ml Vial) 0 unit SUBCUT QIDACHS [facility]; Protocol Last Admin: 02/09/21 08:35 Dose: 6 unit Documented by: TED Isosorbide Mononitrate (Isosorbide Mononitrate 30 Mg Tab.Er.24h) 30 mg PO DAILY [facility]; Protocol Last Admin: 02/09/21 08:34 Dose: 30 mg Documented by: TED Losartan Potassium (Losartan Potassium 50 Mg Tablet) 100 mg PO DAILY [facility]; Protocol Last Admin: 02/09/21 08:35 Dose: 100 mg Documented by: TED Melatonin (Melatonin 3 Mg Tablet) 6 mg PO BEDTIME [facility] Last Admin: 02/08/21 20:32 Dose: Not Given Documented by: MARILIN Non-Admin Reason: Patient Refused Metoprolol Succinate (Metoprolol Succinate Er 100 Mg Tab.Er.24h) 100 mg PO BID [facility]; Protocol Last Admin: 02/09/21 08:35 Dose: 100 mg Documented by: TED Niacin (Niacin Er 250 Mg Tablet.Er) 1,000 mg PO BEDTIME [facility] Last Admin: 02/08/21 20:33 Dose: Not Given Documented by: MARILIN Non-Admin Reason: Patient Refused Omeprazole (Omeprazole 20 Mg Capsule.Dr) 20 mg PO BID@0630,1630 [facility] Last Admin: 02/09/21 05:31 Dose: Not Given Documented by: MARILIN Non-Admin Reason: Patient Refused Pharmacy Consult (Consult Rx Perform Med Rec) 1 each MISCELLANE ONCE PRN PRN Reason: Consult order Sodium Chloride (0.9 % Sodium Chloride Flush 3 Ml Syringe) 3 ml IVFLUSH QSHIFT [facility] Last Admin: 02/09/21 08:54 Dose: 3 ml Documented by: TED Topiramate (Topiramate 100 Mg Tablet) 100 mg PO BID [facility] Last Admin: 02/09/21 08:35 Dose: 100 mg Documented by: TED Labs CBC & Chem 7: 01/31/21 08:19 02/09/21 05:49 Labs: Laboratory Results - last 24 hr 02/08/21 02/08/21 02/08/21 11:21 15:57 20:06 Anion Gap Estim Creat Clear Calc Estimated GFR POC Glucose 178 H 216 H 157 H Random Glucose Calcium 02/09/21 02/09/21 05:49 07:02 Anion Gap 16 Estim Creat Clear Calc 93.5 Estimated GFR > 60 POC Glucose 182 H Random Glucose 200 H Calcium 8.9 D Assessment and Plan (1) CVA (cerebral vascular accident): Status: Acute Assessment and Plan: 60-year-old female with a past medical history of hypertension, hyperlipidemia, diabetes, diabetic gastroparesis, anxiety, chronic abdominal pain discharge from the hospital today after being evaluated for acute on chronic abdominal pain-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 Noted to have CVA on CT head.? Admitted for further management. 1. acute encephalopathy (suspected toxic) /delirium ? now resolved ,awake alert at baseline ? confusion/delirium was likely multifactorial, ? opioid and benzo withdrawal, due to subacute CVA , no seizure-like activity noted, no evidence of infection normal UA and chest x-ray 2. 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 Manifested with confusion and agitation ? Unable to tolerate MRI brain -- per d/w neurology previously, unlikely to change mgmt ? speech rec pureed/ clear liquid, patient refusing pureed Will advanced to regular diabetic diet ? STR recommended by PT 3. Hypokalemia resolved 4. History of chronic pain on high-dose narcotics at home, DC IV Dilaudid and place on by mouth Dilaudid 1 mg q.6 hours as needed at home takes 2 mg q.6 hours as per daughter patient is somnolent at home mostly in bed watches TV has SHIFT PRODUCTION ASSOCIATE services 4-5 hours daily daughter is 1 of the lathe set up operator ?? patient at baseline pivot and transfer herself from bed to wheelchair and is mostly by herself at home. 5. history of depression with labile mood/anxiety ? ? All baseline meds have been resumed except does use of Xanax reduced to 0.5 mg t.i.d. to avoid somnolence 6. Urinary retention failed voiding trial previously -- keep garcia for now and can do voiding trial at SNF. 7. History of chronic abdominal pain/diabetic gastroparesis:? Supportive care.? Patient to follow-up with gastroenterology as outpatient for further management.? 8. History of diabetes:? continue insulin Sliding scale on Humulin R U500 at home will switch to Lantus 20 units b.i.d. and increase dose 9. Uncontrolled HTN improved, continue current regime ? 10. Stage 2 L heel and coccyx pressure ulcers contiue recs per breaster Diet -- [facility] ground DVT pptx, Lovenox Full Code Dispo: to SNF when bed available Quality Stroke Does the patient have a stroke diagnosis?: No VTE Prior VTE?: No VTE Risk Level:: Medical - low VTE Device Contraindication: Treatment Not Indicated VTE Drug Contraindication: N/A - Med Ordered
--- NOTE | 2021-02-09 10:51 | MHC.SL.SWA ---
Speech Pathologist Impression: Risk of Aspiration Risk of Aspiration Due to: Poor PO Intake Reduced Cognition Dysphasia Diet Status: No Change Liquid Consistency and Strategies for Safe Swallow: Liquid Intake Recommendation: Thin Liquid Intake Strategies: Small Sips No Straws Solid Food Consistency: Dietary Recommendations: Grnd/Mech Altered (NDD2) Additional Modifications to Solid Foods: Oral Medication Intake: Crushed with Puree Compensatory Strategies and Precautions to be Taken for Safe Swallow: Sitting Upright (90 deg) No Straw Liquids from Cup Small Bites and Sips Alternate Liquids/Solids Rate of Ingestion Change Supervision While Eating and Drinking for Safe Swallow: Total Assistance Foods to Avoid: Swallowing Recommended Treatments: Compens. Strategy Educat. Recommendation for Speech: Inpatient Speech Therapy Comment: 02/09: Pt was alert, communicative and sitting in chair at bedside. Pt reported not eating much at breakfast with most of her breakfast still present on table. Diet was upgraded yesterday to Ground/Mechanical (NDD2) with thin liquids. Pt agreed to try a bite of a PBJ sandwich, had difficulty with self feeding/biting a piece off, but took small amount. Long oral phase masticating bite of sandwich was noted, with mild delay initiating swallow, no clinical signs of aspiration. Pt took cup sips of liquid, with improved control of bolus and timely swallow noted. While there, Pt discussed options for lunch with staff, elected her preferences, but complained that too much food is brought. Discussed with Pt the need to provide her with food options in order to encourage her to eat. Additionally, Pt has dentures at bedside, reports that they don't fit her well and she is opting not to wear them. Recommend continue GROUND/MECH ALTERED (NDD2) solids and maintain THIN liquids, with pills CRUSHED in PUREE. Patient attempts to feed herself, but drops food items and utensils. She is encouraged independence as much as possible, but does require assistance as needed throughout meals due to weakness and discoordination. Impaired oral phase is characterized by weak labial seal resulting in mild anterior spillage, disorganized chewing pattern, prolonged mastication. Nevertheless, patient displays good oral clearance. Continue aspiration precautions. BOILING TUB OPERATOR will continue to follow to monitor tolerance and re-assess potential for upgrade as appropriate. Frequency/Duration: Daily M-F Date Range for Service Req: Timeline to reassess: PRN Special Education Associate Clinican/Clinical Fellow: No Supervisory Statement: I have reviewed and agree with the student/clinical fellow's documentation: N/A Speech Language Pathologist: Codie Seth M.A., CCC-BOILING TUB OPERATOR
[2021-02-09 11:19] LABS: Glucose, Whole Blood 159 mg/dL (60-115)
[2021-02-09] MEDS: Enoxaparin Sodium 40 MG/0.4 ML SYRINGE SUBCUT (12:02)
[2021-02-09 12:22] LABS: COVID-19 Test Negative (Negative); IDNOW Serial# 08D9AD1C
--- NOTE | 2021-02-09 13:31 | P.DS_ITS ---
DS: Providers Provider Date of Service: 02/10/21 Date of admission: 01/29/21 22:35 Primary care physician: Rafiq Zhong MD Consults: 01/29/21 22:35 Consult to Neurology Routine Consulting Provider: [facility] Reason for consultation: CVA 01/30/21 04:32 Consult to Urology Routine Consulting Provider: Elio Osorio Reason for consultation: Urine retension-> 1300cc on straight cath. 01/31/21 07:10 Consult to Neurology Routine Consulting Provider: [facility] Reason for consultation: subacute stroke,confusion Has provider been notified: No 01/31/21 11:06 Consult to Psychiatry Routine Consulting Provider: [facility] Reason for consultation: help with agitation Has provider been notified: No DS: Diagnosis Discharge Diagnosis (1) Delirium due to another medical condition: Status: Acute (2) CVA (cerebral vascular accident): Status: Acute (3) Encephalopathy acute: Status: Acute (4) Hyperglycemia: Status: Acute (5) Wheelchair bound: Status: Acute (6) HTN (hypertension): Status: Acute (7) Depression: Status: Acute (8) Below knee amputation: Status: Acute (9) Anxiety: Status: Acute DS: Summary Hospital Course Hospital Course: HPI: 60-year-old female with a past medical history of hypertension, hyperlipidemia, diabetes, diabetic gastroparesis, anxiety, chronic abdominal pain discharge from the hospital today after being evaluated for acute on chronic abdominal pain- 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 For the patient was taken home by the EMS patient was noted to be confused and not making sense; hence border back to the hospital for further evaluation. At the time of my interview patient is alert and awake, lying comfortably in the bed, follows simple commands, but confused and repeating words; History was limited. spoke to patient's daughter renee-who mentions that she has a healthcare proxy pain.? Mentioned that when she spoke to her in the morning patient was noted to be confused; and does another the patient went home.? Mentioned she will come in the morning to see her. Review of all other systems is limited as the patient is confused. 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 She was evaluated by neurology who felt that her symptoms could possibly be related to her infarct, but not definitively. An MRI could not be completed safely and ultimately as it was unlikely to change her management, it was deferred. Patients hospital course was complicated by periords of worsening delirium and confusion. There was concern that this was possibly related to withdrawal from her benzos and opiates (on both of these chronically). These were reinitiated, but at much lower doses (see d/c med list). This has helped with her mental status, which (after discussion with her daughter has been progressively worsening over the last 1 year). Suspect that she has acute illness/hospital delirium worsened by her baseline condition. She should continue her benzos/narcotics at current discharge doses and have non-pharmacological management Her hospital course was further complicated by abdominal pain (she has known gastroparesis). A HIDA was completed and cholecysitis was ruled out. Her abdominal pain was treated symptomatically and is resolved. She did require a short period of TPN. She is tolerating a mechanical ground diet. She should follow up with gastroenterology as an outpatient. Patient also had a garcia cath placed for urinary retention and failed a voiding trial. She can attempt another voiding trial 1 week from d/c. Patient does have a L heel pressure ulcer and coccyx (both stage 2) without any signs of infection. grocery clerk recommended: Triad applied to both wounds, heel covered with nonwoven gauze and roll gauze, coccyx covered with foam dressing. She is stable for transfer to SNF. Anticipate less than 30 days at SNF. Time Spent with Patient Time attestation: Total time spent providing and/or coordinating discharge services: Discharge coordination time: Greater than 30 minutes Quality: Stroke Does the patient have a stroke diagnosis?: No Physical Exam Vital Signs: Vital Signs: Last Vital Signs Temp 99.2 F 02/09/21 11:30 Pulse 83 02/09/21 11:30 Resp 20 02/09/21 11:30 BP 122/84 02/09/21 11:30 Pulse Ox 96 02/09/21 11:30 Body Mass Index 34.9 DS: Data Data Completed and Pending Labs on day of discharge: Laboratory Results - last 24 hr 02/08/21 02/08/21 02/09/21 15:57 20:06 05:49 Sodium 142 Potassium 3.8 Chloride 109 H Carbon Dioxide 21 L Anion Gap 16 BUN 10 Creatinine 0.73 Estim Creat Clear Calc 93.5 Estimated GFR > 60 POC Glucose 216 H 157 H Random Glucose 200 H Calcium 8.9 D COVID-19 (TA) COVID-19 Clin Com 02/09/21 02/09/21 02/09/21 07:02 11:14 11:54 Sodium Potassium Chloride Carbon Dioxide Anion Gap BUN Creatinine Estim Creat Clear Calc Estimated GFR POC Glucose 182 H 159 H Random Glucose Calcium COVID-19 (TA) Negative COVID-19 Clin Com See Note Discharge Plan Discharge Patient Disposition: Xfer SNF Discharge Diagnosis: CVA, Delirium Referrals: [facility] [Other] - 1 Week Kamar Montalvo MD [Physician] - 1 Week () Rafiq Zhong MD [Primary Care Provider] - 1 Week Discharge Medications: New melatonin 3 mg Tablet 6 mg PO BEDTIME Qty: 30 RF: 0 alprazolam 0.5 mg Tablet 0.5 mg PO TID Qty: 20 RF: 0 hydromorphone 2 mg Tablet 1 mg PO Q6H PRN (Reason: Pain, Severe (Pain Scale 7-10)) Qty: 20 RF: 0 Continued lsluwrmtlu-xmaladtzebqsy-exor 50-325-40 mg Tablet 1 tab PO TID PRN (Reason: Headache) RF: 0 promethazine 25 mg Tablet 25 mg PO TID PRN (Reason: Nausea And Vomiting) RF: 0 atorvastatin 80 mg Tablet 80 mg PO BEDTIME RF: 0 isosorbide mononitrate 30 mg Tablet Extended Release 24 Hr 30 mg PO DAILY RF: 0 metoprolol succinate 100 mg Tablet Extended Release 24 Hr 100 mg PO BID RF: 0 aspirin 81 mg Tablet,Delayed Release (Dr/Ec) 81 mg PO DAILY RF: 0 amitriptyline 50 mg Tablet 50 mg PO BEDTIME RF: 0 Humulin R U-500 (Conc) Insulin 500 unit/mL Solution 200 unit SUBCUT BEDTIME RF: 0 Humulin R U-500 (Conc) Insulin 500 unit/mL Solution 250 unit SUBCUT QAM RF: 0 omeprazole 20 mg Capsule,Delayed Release(Dr/Ec) 20 mg PO BID RF: 0 topiramate 100 mg Tablet 100 mg PO BID RF: 0 losartan 100 mg Tablet 100 mg PO DAILY RF: 0 niacin 1,000 mg Tablet Extended Release 24 Hr 1,000 mg PO BEDTIME RF: 0 polyethylene glycol 3350 [Miralax] 17 gram/dose Powder 17 g PO DAILY PRN (Reason: Constipation) RF: 0 metoclopramide HCl 10 mg Tablet 10 mg PO Q6H PRN (Reason: Nausea And Vomiting) RF: 0 gabapentin 300 mg capsule 600 mg PO TID RF: 0 Discontinued alprazolam [Xanax] 1 mg Tablet 1 mg PO TID RF: 0 hydromorphone 4 mg tablet 2 mg PO QID RF: 0 Discharge Orders: Discharge Order (Routine); Ordered 02/10/21 Ordered By: Ryan Bains Diet: other Activity on Discharge: As tolerated Stand Alone Forms: Patient Portal Discharge page Care Plan Goals: To continue treatment at rehab Health Concerns: Stroke, memory loss, confusion Plan of Treatment: Continue treatment at [facility] continue aspirin decreased dose of opiates / benzos Assessment: see d/c summary
--- NOTE | 2021-02-09 14:50 | MHC.CM.PN ---
pt is ready for dc bed search broadenened
[2021-02-09 16:20] LABS: Glucose, Whole Blood 147 mg/dL (60-115)
[2021-02-09] MEDS: Melatonin 3 MG TABLET 6 MG PO (19:54)
[2021-02-09] MEDS: Amitriptyline HCl 50 MG TABLET PO (19:54)
[2021-02-09] MEDS: Atorvastatin Calcium 80 MG TABLET PO (19:55)
[2021-02-09 20:17] LABS: Glucose, Whole Blood 152 mg/dL (60-115)
[2021-02-10] MEDS: Omeprazole 20 MG CAPSULE.DR PO (05:51)
[2021-02-10 07:10] LABS: Anion Gap 14 (12-20); Blood Urea Nitrogen 8 mg/dL (9-16); Calcium 8.6 mg/dL (8.4-10.2); Carbon Dioxide 22 mmol/L (22-29); Chloride 109 mmol/L (96-108); Creatinine Clr Calc Pharmacy 94.8; Estimated Glomerular Filt Rate > 60; Glucose Random 164 mg/dL (60-115); Magnesium 2.1 mg/dL (1.6-2.6); Phosphorus 4.1 mg/dL (2.7-4.5); Potassium 3.8 mmol/L (3.3-5.1); Sodium 141 mmol/L (135-145)
[2021-02-10 07:38] LABS: Glucose, Whole Blood 165 mg/dL (60-115)
[2021-02-10 07:54] VITALS: BP 142/76; PULSE 77; RESP 18; TEMP 35.9; O2SAT 98
[2021-02-10 08:42] VITALS: BP 142/76; PULSE 77
[2021-02-10] MEDS: Gabapentin 300 MG CAPSULE 600 MG PO ×2 (08:42→15:57)
[2021-02-10] MEDS: Insulin Lispro 100 UNIT/ML 3 ML VIAL SUBCUT ×2 (08:42→11:50)
[2021-02-10] MEDS: 0.9 % Sodium Chloride Flush 3 ML SYRINGE IVFLUSH (08:42)
[2021-02-10] MEDS: Losartan Potassium 50 MG TABLET 100 MG PO (08:42)
[2021-02-10] MEDS: Isosorbide Mononitrate 30 MG TAB.ER.24H PO (08:42)
[2021-02-10 08:43] VITALS: BP 142/76; PULSE 77
[2021-02-10] MEDS: Insulin Glargine,Hum.rec.anlog 100 UNIT/ML 10 ML VIAL 20 UNIT SUBCUT (08:43)
[2021-02-10] MEDS: Topiramate 100 MG TABLET PO (08:43)
[2021-02-10] MEDS: Metoprolol Succinate ER 100 MG TAB.ER.24H PO (08:43)
[2021-02-10] MEDS: Aspirin Enteric Coated 81 MG TABLET.DR PO (08:43)
--- NOTE | 2021-02-10 10:16 | MHC.CLN ---
Addendum entered by Domitila Bal, GERMAN 02/10/21 12:47: agree with provider's assessment below Original Note: F/U DIET RX: 2200DM GRD/MS (NDD2)-APPROPRIATE POOR PO INTAKE DOCUMENTED 0-50% PT STATES SHE EATS ONE MEAL A DAY PT RECEIVING GLUCERNA SUPPLEMENT BID TO PROVIDE EXTRA CALORIES SUPPLEMENT PROVIDES 474 KCALS AND 20 GRAMS PROTEIN CONTINUE TO MONITOR PO INTAKE CLOSELY
--- NOTE | 2021-02-10 10:23 | MHC.SL.DTX ---
Dysphagia Diet modifications: Last documented Solid diet consistencies: Grnd/Mech Altered (NDD2) Last documented Liquid consistency: Thin Last documented Medication Administration: crushed in puree Changes made to current diet?: No Liquid Consistency and Strategies: Liquid Intake Recommendation: Thin Compensatory Strategies for Safe Swallow: Small Sips No Straws Compensatory Strategies for Safe Swallow(b): Sitting Upright (90 deg) No Straw Liquids from Cup Small Bites and Sips Alternate Liquids/Solids Rate of Ingestion Change Solid Food Consistency: Dietary Recommendations: Grnd/Mech Altered (NDD2) Additional Modifications to Solids: Oral Medication Intake: Crushed with Puree Strategies and Precautions to be Taken for Safe Swallow: Sitting Upright (90 deg) No Straw Liquids from Cup Small Bites and Sips Alternate Liquids/Solids Rate of Ingestion Change Supervision While Eating and/Drinking: Total Assistance Foods to Avoid: Swallowing Recommended Treatments: Compens. Strategy Educat. Level of Impact on: Daily activities: Severe Interpersonal interactions: Education: Severe Employment: Community: Severe Prognosis for Improvement: Fair Recommendation for Speech: Inpatient Speech Therapy Treatment: Pt was seen for dysphagia treatment while seated upright in her bedside chair. Pt with her breakfast tray in front of her and appeared to have eaten yogurt with a fork. Pt's yogurt was also spilled onto her meal tray. Current diet NDD2 GROUND/MECHANICALLY altered solids and THIN liquids. Pt declined solids offered, stating she had just eaten. Despite encouragement provided (as pt had not eaten much at all), pt continued to decline all solids offered. Pt accepted 1 sip of thin liquids and then declined further intake. Pt perseveratively spoke about the new onset of vision difficulties s/p CVA. Pt with improved cognition and was able to recall having had a CVA. RN was notified of pt's reported vision impairments via secure text. POCKET OPERATOR will continue to follow pt throughout her stay to determine the safest and least restrictive diet consistency. Ladle Liner Clinican/Clinical Fellow: No Supervisory Statement: I have reviewed and agree with the student/clinical fellow's documentation: N/A Speech Language Pathologist: Mahsa Sorto M.A., [facility]-POCKET OPERATOR
[2021-02-10 10:37] VITALS: BP 142/76; PULSE 77
[2021-02-10 11:06] LABS: Glucose, Whole Blood 202 mg/dL (60-115)
[2021-02-10 11:14] VITALS: BP 129/63; PULSE 79; RESP 20; TEMP 35.6; O2SAT 97
[2021-02-10] MEDS: Enoxaparin Sodium 40 MG/0.4 ML SYRINGE SUBCUT (11:49)
--- NOTE | 2021-02-10 11:52 | HO.PM.IMPN ---
Subjective Subjective Date of Service: 02/10/21 Interval History: pt seen and examined feels better today willing to go to rehab Review of Systems ROS negative except interval history Physical Exam Vital Signs: Vital Signs: Last Vital Signs Temp 96.1 F L 02/10/21 11:14 Pulse 79 02/10/21 11:14 Resp 20 02/10/21 11:14 BP 129/63 02/10/21 11:14 Pulse Ox 97 02/10/21 11:14 Body Mass Index 34.9 Const: Other: General: Awake alert answering questions appropriately Neck no JVD oral?mucosa dry Resp:??CTA bilateral CVS: S1,S2,RRR GI:? Abdomen soft, bowel?sounds present Skin: No rash, redness around left heel, chronic, BKA of?the right Neuro:??Symmetric face, speech clear, no upper extremity weakness, left lower extremity good strength Extremities no edema on left Objective Data Active Medications Acetaminophen (Acetaminophen 325 Mg Tablet) 650 mg PO Q6H PRN PRN Reason: Pain, Mild (Pain Scale 1-3) Last Admin: 02/09/21 19:57 Dose: 650 mg Documented by: WENDI Amitriptyline HCl (Amitriptyline Hcl 50 Mg Tablet) 50 mg PO BEDTIME [facility] Last Admin: 02/09/21 19:54 Dose: 50 mg Documented by: WENDI Aspirin (Aspirin Enteric Coated 81 Mg Tablet.) 81 mg PO DAILY [facility] Last Admin: 02/10/21 08:43 Dose: 81 mg Documented by: JACOB Atorvastatin Calcium (Atorvastatin Calcium 80 Mg Tablet) 80 mg PO BEDTIME [facility] Last Admin: 02/09/21 19:55 Dose: 80 mg Documented by: WENDI Dextrose (Dextrose 50 % 25 Gm/50 Ml Vial) 25 gm IVPUSH Q15M PRN; Protocol PRN Reason: per Hypoglycemia Standing Ord. Enoxaparin Sodium (Enoxaparin Sodium 40 Mg/0.4 Ml Syringe) 40 mg SUBCUT Q24H [facility] Last Admin: 02/10/21 11:49 Dose: 40 mg Documented by: JACOB Gabapentin (Gabapentin 300 Mg Capsule) 600 mg PO TID [facility] Last Admin: 02/10/21 08:42 Dose: 600 mg Documented by: JACOB Glucose (Glucose Gel 15 Gm Gel..Gram.) 15 gm PO Q15M PRN; Protocol PRN Reason: per Hypoglycemia Standing Ord. Hydralazine HCl (Hydralazine Hcl 20 Mg/Ml Vial) 5 mg IVPUSH Q6H PRN; Protocol PRN Reason: SBP> 160 Last Admin: 02/06/21 08:07 Dose: 5 mg Documented by: ALVERTO Hydromorphone HCl (Hydromorphone Hcl 2 Mg Tablet) 1 mg PO Q6H PRN PRN Reason: Pain, Severe (Pain Scale 7-10) Last Admin: 02/09/21 18:49 Dose: 1 mg Documented by: TED Promethazine HCl 12.5 mg/ (Sodium Chloride) 50.5 mls @ 202 mls/hr IV Q4H PRN PRN Reason: Nausea and Vomiting Last Infusion: 02/08/21 22:30 Dose: 0 mls/hr Documented by: MARILIN Insulin Glargine (Insulin Glargine,Hum.Rec.Anlog 100 Unit/Ml 10 Ml Vial) 20 unit SUBCUT BID [facility] Last Admin: 02/10/21 08:43 Dose: 20 unit Documented by: JACOB Insulin Human Lispro (Insulin Lispro 100 Unit/Ml 3 Ml Vial) 0 unit SUBCUT QIDACHS [facility]; Protocol Last Admin: 02/10/21 11:50 Dose: 10 unit Documented by: JACOB Isosorbide Mononitrate (Isosorbide Mononitrate 30 Mg Tab.Er.24h) 30 mg PO DAILY [facility]; Protocol Last Admin: 02/10/21 08:42 Dose: 30 mg Documented by: JACOB Losartan Potassium (Losartan Potassium 50 Mg Tablet) 100 mg PO DAILY [facility]; Protocol Last Admin: 02/10/21 08:42 Dose: 100 mg Documented by: JACOB Melatonin (Melatonin 3 Mg Tablet) 6 mg PO BEDTIME [facility] Last Admin: 02/09/21 19:54 Dose: 6 mg Documented by: WENDI Metoprolol Succinate (Metoprolol Succinate Er 100 Mg Tab.Er.24h) 100 mg PO BID [facility]; Protocol Last Admin: 02/10/21 08:43 Dose: 100 mg Documented by: JACOB Niacin (Niacin Er 250 Mg Tablet.Er) 1,000 mg PO BEDTIME [facility] Last Admin: 02/09/21 19:54 Dose: 1,000 mg Documented by: WENDI Omeprazole (Omeprazole 20 Mg Capsule.) 20 mg PO BID@0630,1630 [facility] Last Admin: 02/10/21 05:51 Dose: 20 mg Documented by: WENDI Pharmacy Consult (Consult Rx Perform Med Rec) 1 each MISCELLANE ONCE PRN PRN Reason: Consult order Sodium Chloride (0.9 % Sodium Chloride Flush 3 Ml Syringe) 3 ml IVFLUSH QSHIFT [facility] Last Admin: 02/10/21 08:42 Dose: 3 ml Documented by: JACOB Topiramate (Topiramate 100 Mg Tablet) 100 mg PO BID [facility] Last Admin: 02/10/21 08:43 Dose: 100 mg Documented by: JACOB Labs CBC & Chem 7: 01/31/21 08:19 02/10/21 05:53 Labs: Laboratory Results - last 24 hr 02/09/21 02/09/21 02/09/21 11:54 15:57 19:47 Anion Gap Estim Creat Clear Calc Estimated GFR POC Glucose 147 H 152 H Random Glucose Calcium Phosphorus Magnesium COVID-19 (TA) Negative COVID-19 Clin Com See Note 02/10/21 02/10/21 02/10/21 05:53 07:21 10:52 Anion Gap 14 Estim Creat Clear Calc 94.8 Estimated GFR > 60 POC Glucose 165 H 202 H Random Glucose 164 H Calcium 8.6 Phosphorus 4.1 Magnesium 2.1 COVID-19 (TA) COVID-19 Clin Com Assessment and Plan (1) CVA (cerebral vascular accident): Status: Acute Assessment and Plan: 60-year-old female with a past medical history of hypertension, hyperlipidemia, diabetes, diabetic gastroparesis, anxiety, chronic abdominal pain discharge from the hospital today after being evaluated for acute on chronic abdominal pain-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 Noted to have CVA on CT head.? Admitted for further management. no issues since yesterday reported by catering staff member 1. acute encephalopathy (suspected toxic) /delirium ? now resolved ,awake alert at baseline ? confusion/delirium was likely multifactorial, ? opioid and benzo withdrawal, due to subacute CVA , no seizure-like activity noted, no evidence of infection normal UA and chest x-ray 2. Subacute stroke in [employer] territory ? Manifested with confusion and agitation ? Unable to tolerate MRI brain -- per d/w neurology previously, unlikely to change mgmt ? speech rec pureed/ clear liquid, patient refusing pureed Will advanced to regular diabetic diet ? STR recommended by PT 3. Hypokalemia resolved 4. History of chronic pain on high-dose narcotics at home, DC IV Dilaudid and place on by mouth Dilaudid 1 mg q.6 hours as needed at home takes 2 mg q.6 hours as per daughter patient is somnolent at home mostly in bed watches TV has [employer] services 4-5 hours daily daughter is 1 of the etiologist ?? patient at baseline pivot and transfer herself from bed to wheelchair and is mostly by herself at home. 5. history of depression with labile mood/anxiety ? ? All baseline meds have been resumed except does use of Xanax reduced to 0.5 mg t.i.d. to avoid somnolence 6. Urinary retention failed voiding trial previously -- keep garcia for now and can do voiding trial at SNF. 7. History of chronic abdominal pain/diabetic gastroparesis:? Supportive care.? Patient to follow-up with gastroenterology as outpatient for further management.? 8. History of diabetes:? continue insulin Sliding scale on Humulin R U500 at home will switch to Lantus 20 units b.i.d. and increase dose 9. Uncontrolled HTN improved, continue current regime ? 10. Stage 2 L heel and coccyx pressure ulcers contiue recs per vacuum bottle assembler Diet -- [facility] ground DVT pptx, Lovenox Full Code Dispo: to SNF when bed available Quality Stroke Does the patient have a stroke diagnosis?: No VTE Prior VTE?: No VTE Risk Level:: Medical - low VTE Device Contraindication: Treatment Not Indicated VTE Drug Contraindication: N/A - Med Ordered
--- NOTE | 2021-02-10 15:05 | MHC.CM.PN ---
pt accepted at [facility] to be dcd at 5:00 mds [facility] family /deisy notified of dc today at 4:00 not pleased with the distance ,she was awre yesterday that we had to broaden our bed search..later niece came we diacussed [facility] putting pts name on bed transfer to a closer facility of [facility] when a bed becomes avaliable ..encouraged family to reach out to sw at facility and to contact local facvilies if they have in interest in them
[2021-02-10] MEDS: ALPRAZolam 0.5 MG TABLET PO (15:57)
--- NOTE | 2021-02-10 16:24 | P.PNUR_ITS ---
Subjective Subjective Date of Service: 02/10/21 Interval history: Hypertonic bladder Secondary to probable stroke Failed to initial voiding trial Can perform voiding trial at rehabilitation in 3 weeks Can optimize bladder with low-dose alpha-larry if required Should have follow-up appointment with Urology once discharged from rehabilitation Physical Exam Vital Signs: Vital Signs: Last Vital Signs Temp 96.1 F L 02/10/21 11:14 Pulse 79 02/10/21 11:14 Resp 20 02/10/21 11:14 BP 129/63 02/10/21 11:14 Pulse Ox 97 02/10/21 11:14 Body Mass Index 34.9 Const: Other: General: Awake alert answering questions appropriately Neck no JVD oral?mucosa dry Resp:??CTA bilateral CVS: S1,S2,RRR GI:? Abdomen soft, bowel?sounds present Skin: No rash, redness around left heel, chronic, BKA of?the right Neuro:??Symmetric face, speech clear, no upper extremity weakness, left lower extremity good strength Extremities no edema on left Urology Results Labs CBC & Chem 7: 01/31/21 08:19 02/10/21 05:53 Labs: Laboratory Results - last 24 hr 02/09/21 02/10/21 02/10/21 19:47 05:53 07:21 Sodium 141 Potassium 3.8 Chloride 109 H Carbon Dioxide 22 Anion Gap 14 BUN 8 L Creatinine 0.72 Estim Creat Clear Calc 94.8 Estimated GFR > 60 POC Glucose 152 H 165 H Random Glucose 164 H Calcium 8.6 Phosphorus 4.1 Magnesium 2.1 02/10/21 10:52 Sodium Potassium Chloride Carbon Dioxide Anion Gap BUN Creatinine Estim Creat Clear Calc Estimated GFR POC Glucose 202 H Random Glucose Calcium Phosphorus Magnesium Progress Note: A&P Assessment and plan (1) Hypotonic neurogenic bladder: Status: Acute Assessment and Plan: A patient review in 6 weeks for reassessment Fall Risk Details Current Medications: Current Medications Acetaminophen (Acetaminophen 325 Mg Tablet) 650 mg PO Q6H PRN PRN Reason: Pain, Mild (Pain Scale 1-3) Last Admin: 02/09/21 19:57 Dose: 650 mg Documented by: Alprazolam (Alprazolam 0.5 Mg Tablet) 0.5 mg PO TID [facility] Last Admin: 02/10/21 15:57 Dose: 0.5 mg Documented by: Amitriptyline HCl (Amitriptyline Hcl 50 Mg Tablet) 50 mg PO BEDTIME [facility] Last Admin: 02/09/21 19:54 Dose: 50 mg Documented by: Aspirin (Aspirin Enteric Coated 81 Mg Tablet.) 81 mg PO DAILY [facility] Last Admin: 02/10/21 08:43 Dose: 81 mg Documented by: Atorvastatin Calcium (Atorvastatin Calcium 80 Mg Tablet) 80 mg PO BEDTIME [facility] Last Admin: 02/09/21 19:55 Dose: 80 mg Documented by: Dextrose (Dextrose 50 % 25 Gm/50 Ml Vial) 25 gm IVPUSH Q15M PRN; Protocol PRN Reason: per Hypoglycemia Standing Ord. Enoxaparin Sodium (Enoxaparin Sodium 40 Mg/0.4 Ml Syringe) 40 mg SUBCUT Q24H [facility] Last Admin: 02/10/21 11:49 Dose: 40 mg Documented by: Gabapentin (Gabapentin 300 Mg Capsule) 600 mg PO TID [facility] Last Admin: 02/10/21 15:57 Dose: 600 mg Documented by: Glucose (Glucose Gel 15 Gm Gel..Gram.) 15 gm PO Q15M PRN; Protocol PRN Reason: per Hypoglycemia Standing Ord. Hydralazine HCl (Hydralazine Hcl 20 Mg/Ml Vial) 5 mg IVPUSH Q6H PRN; Protocol PRN Reason: SBP> 160 Last Admin: 02/06/21 08:07 Dose: 5 mg Documented by: Hydromorphone HCl (Hydromorphone Hcl 2 Mg Tablet) 1 mg PO Q6H PRN PRN Reason: Pain, Severe (Pain Scale 7-10) Last Admin: 02/09/21 18:49 Dose: 1 mg Documented by: Promethazine HCl 12.5 mg/ (Sodium Chloride) 50.5 mls @ 202 mls/hr IV Q4H PRN PRN Reason: Nausea and Vomiting Last Infusion: 02/08/21 22:30 Dose: Infused Documented by: Insulin Glargine (Insulin Glargine,Hum.Rec.Anlog 100 Unit/Ml 10 Ml Vial) 20 unit SUBCUT BID [facility] Last Admin: 02/10/21 08:43 Dose: 20 unit Documented by: Insulin Human Lispro (Insulin Lispro 100 Unit/Ml 3 Ml Vial) 0 unit SUBCUT QIDACHS [facility]; Protocol Last Admin: 02/10/21 11:50 Dose: 10 unit Documented by: Isosorbide Mononitrate (Isosorbide Mononitrate 30 Mg Tab.Er.24h) 30 mg PO DAILY [facility]; Protocol Last Admin: 02/10/21 08:42 Dose: 30 mg Documented by: Losartan Potassium (Losartan Potassium 50 Mg Tablet) 100 mg PO DAILY [facility]; Protocol Last Admin: 02/10/21 08:42 Dose: 100 mg Documented by: Melatonin (Melatonin 3 Mg Tablet) 6 mg PO BEDTIME [facility] Last Admin: 02/09/21 19:54 Dose: 6 mg Documented by: Metoprolol Succinate (Metoprolol Succinate Er 100 Mg Tab.Er.24h) 100 mg PO BID [facility]; Protocol Last Admin: 02/10/21 08:43 Dose: 100 mg Documented by: Niacin (Niacin Er 250 Mg Tablet.Er) 1,000 mg PO BEDTIME [facility] Last Admin: 02/09/21 19:54 Dose: 1,000 mg Documented by: Omeprazole (Omeprazole 20 Mg Capsule.Dr) 20 mg PO BID@0630,1630 [facility] Last Admin: 02/10/21 05:51 Dose: 20 mg Documented by: Pharmacy Consult (Consult Rx Perform Med Rec) 1 each MISCELLANE ONCE PRN PRN Reason: Consult order Sodium Chloride (0.9 % Sodium Chloride Flush 3 Ml Syringe) 3 ml IVFLUSH QSHIFT [facility] Last Admin: 02/10/21 15:57 Dose: Not Given Documented by: Topiramate (Topiramate 100 Mg Tablet) 100 mg PO BID [facility] Last Admin: 02/10/21 08:43 Dose: 100 mg Documented by: Time Spent With Patient Time: Total time spent is greater than 50% in coordination of care (as documented) at patient's floor/unit and/or counseling patient: Time with patient: less than 15 minutes No Severe Sepsis: No Severe Sepsis Progress Note: Quality Stroke Does the patient have a stroke diagnosis?: No
== END 2021-02-10 16:57 | disposition skilled nursing facility (03) | DRG 45 ==
LOC: HO.ED 21:49 → HO.EDOVER 22:58 → HO.IMC 01-30 13:12
PROVIDERS: Hospitalist; Internal Medicine; Physician Assistant; Admitting Provider Hospitalist; Emergency Provider Internal Medicine; PCP Internal Medicine; Visit Provider Family Medicine
DX: I63.532 Cerebral infarction due to unspecified occlusion or stenosis of left posterior cerebral artery (principal); G92.8 Other toxic encephalopathy; F05 Delirium due to known physiological condition; L89.152 Pressure ulcer of sacral region, stage 2; E11.40 Type 2 diabetes mellitus with diabetic neuropathy, unspecified; K31.84 Gastroparesis; E11.43 Type 2 diabetes mellitus with diabetic autonomic (poly)neuropathy; R47.01 Aphasia; N31.9 Neuromuscular dysfunction of bladder, unspecified; G89.4 Chronic pain syndrome; I10 Essential (primary) hypertension; R33.9 Retention of urine, unspecified; E11.65 Type 2 diabetes mellitus with hyperglycemia; F32.A Depression, unspecified; L89.622 Pressure ulcer of left heel, stage 2; F41.9 Anxiety disorder, unspecified; E87.6 Hypokalemia; R29.704 NIHSS score 4; Z99.3 Dependence on wheelchair; Z89.511 Acquired absence of right leg below knee; Z20.822 Contact with and (suspected) exposure to COVID-19; Z79.4 Long term (current) use of insulin; Z88.0 Allergy status to penicillin; Z79.82 Long term (current) use of aspirin; Z79.891 Long term (current) use of opiate analgesic; Z79.899 Other long term (current) drug therapy
CPT/HCPCS: 36415; 70450; 71045; 80048; 80061; 80076; 80307; 81001; 82040; 82140; 82947; 83605; 83690; 83735; 84100; 84478; 84484; 85025; 85027; 85610; 85730; 87040; 87635; 92523; 92610; 93005; 93306; 96360; 97110; 97112; 97163; 97167; 97530; 97535; 99285; 99291; 99429; J1170; J1650; J2060; J2405; J2550

== ENCOUNTER 2021-05-13 13:37 | Outpatient (RCR) | payer MEDICAID, SELFPAY ==
--- NOTE | ~2021-05-13 | XR_ITS ---
EXAMINATION: XR FOOT, LEFT CLINICAL INFORMATION: Left foot wound. Suspected osteomyelitis. COMPARISON: Left foot done on 04/10/2020. TECHNIQUE: AP, lateral, and oblique views of the left foot. FINDINGS: Marked diffuse osteopenia and old healed fracture involving the distal tibia. Pes planus deformity and moderate tarsometatarsal osteoarthrosis. Soft tissues are unremarkable. No evidence of any cortical destruction or periosteal reaction or soft tissue gas identified. When compared to prior study, no significant change is noted. XR/XR foot LT 2V IMPRESSION: No significant change since the prior radiograph dated 04/10/2020. Specifically, no radiographic evidence of any osteomyelitis or soft tissue gas identified.
[2021-06-23 10:20] LABS: MANUAL DIFF FLAG NO
[2021-06-23 11:01] LABS: Basophils Percent Auto 0.4 % (0-2); Eosinophils Absolute Auto 0.1 X10*3/uL (0.0-0.4); Eosinophils Percent Auto 1.6 % (0-4); Hematocrit 32.9 % (37.0-47.0); Hemoglobin 11.1 g/dl (12.0-16.0); Imm Gran Abs Auto 0.02 X10*3/uL (0.00-0.03); Imm Gran Pct Auto 0.3 % (0.0-0.4); Lymphocytes Absolute Auto 2.7 X10*3/uL (1.2-4.9); Lymphocytes Percent Auto 38.5 % (20-40); Mean Corpuscular HGB Conc 33.7 g/dl (31.0-35.0); Mean Corpuscular Hemoglobin 31.4 pg (27.0-33.0); Mean Corpuscular Volume 92.9 fL (80.0-98.0); Mean Platelet Volume 11.2 fL (9.4-12.3); Monocytes Absolute Auto 0.5 X10*3/uL (0.1-1.2); Monocytes Percent Auto 7.1 % (2-11); Neutrophils Absolute Auto 3.7 x10*3/uL (2.0-8.3); Neutrophils Percent Auto 52.1 % (45-73); Platelet Count 231 X10*3/uL (160-400); Red Blood Count 3.54 X10*6/uL (4.20-5.50); Red Cell Distribution Width 13.6 % (11.0-16.0); White Blood Count 7.1 X10*3/uL (4.8-10.8)
[2021-06-23 11:36] LABS: Estimated Average Glucose 240 mg/dL
[2021-06-23 11:46] LABS: Erythrocyte Sedimentation Rate 25 MM/HR (0-20)
[2021-06-23 11:56] LABS: Anion Gap 13 (12-20); Blood Urea Nitrogen 6 mg/dL (9-16); C Reactive Protein 0.57 mg/dL (< or = 0.50); Calcium 9.3 mg/dL (8.4-10.2); Carbon Dioxide 20 mmol/L (22-29); Chloride 107 mmol/L (96-108); Estimated Glomerular Filt Rate > 60; Glucose Random 367 mg/dL (60-115); Potassium 3.9 mmol/L (3.3-5.1); Sodium 136 mmol/L (135-145)
== END 2021-10-13 16:27 | disposition home or self-care (01) ==
LOC: HO.WCC 13:37
PROVIDERS: PCP Internal Medicine; Visit Provider Surgery
DX: E11.621 Type 2 diabetes mellitus with foot ulcer (principal); L97.422 Non-pressure chronic ulcer of left heel and midfoot with fat layer exposed
CPT/HCPCS: 11042; 15275; 36415; 73620; 80048; 83036; 84134; 85025; 85652; 86140; 87071; 87077; 87186; 87205; 97597; 99212; 99213; Q4187

== ENCOUNTER 2021-06-29 14:47 | Inpatient (IN) | payer MEDICAID, SELFPAY ==
--- NOTE | ~2021-06-29 | CT_ITS ---
EXAMINATION: CT HEAD WITHOUT CONTRAST CLINICAL INFORMATION: Slurred speech COMPARISON: CT head 01/31/2021, 01/29/2021 TECHNIQUE: Contiguous axial imaging was performed from the skull base to vertex without intravenous administration of contrast. Coronal and sagittal reformatted images are performed at CT scanner This CT examination was performed using dose optimization techniques as appropriate, variously including the following: *Automated exposure control *Adjustment of mA and/or kV according to patient size (this includes techniques or standardized protocols for targeted exams where dose is matched to indication/reason for exam; i.e. extremities or head) *Use of iterative reconstruction technique DLP: 624 mGy-cm FINDINGS: Redemonstration of low-attenuation of parenchyma at the left BACK DIGGER OPERATOR territory in the left parietal-occipital lobe consistent with infarct. No evidence of hemorrhagic conversion. No mass effect. No extra-axial fluid collections are identified. No new intracranial abnormality. The ventricles are normal in size. The osseous structures and soft tissues are normal. The mastoid air cells and visualized portions of the paranasal sinuses are well aerated. CT/CT head/brain wo con IMPRESSION: 1. No acute intracranial abnormality. 2. Chronic left BACK DIGGER OPERATOR territory infarct.
--- NOTE | ~2021-06-29 | CT_ITS ---
EXAMINATION: CT ABDOMEN AND PELVIS WITH CONTRAST CLINICAL INFORMATION: diarrhea, leukocytosis COMPARISON: 01/26/2021 TECHNIQUE: Multidetector volumetric imaging was performed from the superior aspect of the liver through the pubic symphysis following administration of 100 mL Omnipaque 300 intravenous contrast. Sagittal and coronal reformatted images were obtained on the technologist workstation.. This CT examination was performed using dose optimization techniques as appropriate, variously including the following: *Automated exposure control *Adjustment of mA and/or kV according to patient size (this includes techniques or standardized protocols for targeted exams where dose is matched to indication/reason for exam; i.e. extremities or head) *Use of iterative reconstruction technique DLP: 750 mGy-cm FINDINGS: LUNG BASES: Mild bibasilar dependent atelectasis. Small hiatal hernia. LIVER, GALLBLADDER, AND BILIARY TREE: The liver is normal in size, shape, and attenuation. No focal hepatic lesion. Common bile duct is prominent measuring up to 1.0 cm in maximal diameter without obvious intraluminal filling defects.. The gallbladder is distended but otherwise unremarkable with no evidence of radiopaque gallstones, gallbladder wall thickening, or obvious pericholecystic inflammatory changes. PANCREAS: Atrophic. No pancreatic ductal dilatation. SPLEEN: Unremarkable. ADRENAL GLANDS: Unremarkable. KIDNEYS AND URETERS: The kidneys are normal in size, shape, and attenuation. No hydronephrosis, hydroureter, or calculi seen. No perinephric stranding. BLADDER: Unremarkable. GASTROINTESTINAL TRACT: Colon is mostly decompressed. I do not appreciate any obvious colonic wall thickening for the degree of decompression. No pericolonic inflammatory changes. Appendix is partially visualized in the right lower quadrant but where it is seen it is unremarkable. Visualized small bowel is unremarkable. Gastric stimulator pacer is noted with leads overlying the anterior wall of the stomach. ABDOMINAL WALL: Likely injection sites along the right abdominal wall LYMPHOVASCULAR STRUCTURES: Vascular calcification within the aorta iliac system. No bulky retroperitoneal or mesenteric adenopathy. Retroaortic left renal vein noted. PELVIC VISCERA: Unremarkable. OSSEOUS STRUCTURES: Degenerative changes in the spine and hips but no acute bony abnormality. CT/CT abdomen pelvis w con IMPRESSION: Chronic appearing changes as described above. Overall the appearance is similar to the 01/26/2021 study. The distal colon is decompressed which makes evaluation for subtle colonic wall thickening difficult but I do not appreciate any significant pericolonic inflammatory change.
--- NOTE | ~2021-06-29 | US_ITS ---
EXAMINATION: US VENOUS WITH DOPPLER UPPER EXTREMITY, RIGHT CLINICAL INFORMATION: Edema and swelling COMPARISON: Upper extremity DVT 08/12/2014 TECHNIQUE: Ultrasound of the upper extremity is performed using compression sonography and color and pulse Doppler flow with assessment of augmentation of flow. There is also imaging and Doppler assessment of the jugular and subclavian veins. Spectral analysis with color-flow imaging is performed. FINDINGS: Respiratory variation, normal compression, and augmented flow are noted throughout the upper extremity including the axillary, brachial, cubital, and radial and ulnar veins. There is normal flow in the internal jugular and subclavian veins. There is no visible deep or superficial thrombophlebitis. If the patient's symptoms progress, a followup ultrasound in 5 -7 days might be of value to exclude proximal propagation from a nonvisualized distal arm vein. US/US venous duplex UE RT IMPRESSION: No DVT demonstrated in the right upper extremity
--- NOTE | ~2021-06-29 | XR_ITS ---
EXAMINATION: XR CHEST CLINICAL INFORMATION: Acute mental status change COMPARISON: Previous chest x-ray January 2021 TECHNIQUE: Frontal view of the chest was obtained. FINDINGS: The cardiac and mediastinal contours are stable. The lungs are clear. There is no pleural effusion or pneumothorax. There is a right subclavian port with tip projecting over the SVC. There are degenerative changes of the spine. XR/XR chest 1V IMPRESSION: No evidence for acute disease in the chest.
--- NOTE | ~2021-06-29 | XR_ITS ---
EXAMINATION: XR CALCANEUS, LEFT CLINICAL INFORMATION: Chronic wound COMPARISON: Foot radiographs 06/23/2021 TECHNIQUE: Lateral and axial views of the left calcaneus were obtained. XR/XR calcaneus LT min 2V FINDINGS/IMPRESSION: No acute fracture or dislocation. Stable chronic posttraumatic deformity of the distal tibia. No appreciable cortical erosion, focal osteopenia, periosteal reaction to suggest osteomyelitis. Moderate degenerative changes of the ankle with loss of tibiotalar joint space and degenerative spurring of the dorsal midfoot. Pes planus. Soft tissue swelling is noted along the plantar aspect of the heel. No subcutaneous emphysema.
[2021-06-29 14:48] VITALS: BP 192/88; PULSE 80; O2SAT 97
[2021-06-29 15:01] VITALS: BP 130/55; PULSE 71; RESP 18; TEMP 36.6; O2SAT 97; BMI 32.9
--- NOTE | 2021-06-29 15:03 | ECG_ITS ---
Test Reason : HYPOGLYCEMIA Blood Pressure : / mmHG Vent. Rate : 068 BPM Atrial Rate : 068 BPM P-R Int : 142 ms QRS Dur : 112 ms QT Int : 432 ms P-R-T Axes : 051 046 -19 degrees QTc Int : 459 ms Normal sinus rhythm Inferior T wave inversions. Abnormal ECG When compared with ECG of 29-JAN-2021 16:32, No significant change was found Referred By: Mahsa Rosales Electronically Signed By:Chet Herrera
--- NOTE | 2021-06-29 15:06 | ED_ITS ---
HPI - Altered Mental Status General Chief Complaint: General Medical Stated Complaint: LOW BLOOD SUGAR 20 GLUCOGON IM GIVEN PER EMS Time Seen by Provider: 06/29/21 15:02 Source: patient, EMS and old records reviewed Mode of arrival: EMS Limitations: altered mental status History of Present Illness HPI narrative: 61 y/o female with history of CVA, CAD, DM, gastroparesis s/p gastric pacemaker, chronic pain on chronic opiates, s/p RLE BKA, HTN, depression/anxiety, left heel pressure ulcer, stage 2 coccyx ulcer, who presents to the ER after she was found unresponsive at home with a glucose of 20. EMS reports patient's TEST INSPECTION ENGINEER noted the patient was pale, and lethargic at 2:30pm along with slurred speech. Unsure what time she arrived at the home. The patient's daughter states she spoke with her mother this morning and she said she didn't feel well. She was nauseated and having diarrhea as well as abdominal cramping similar to her prior gastroparesis pains. She cannot recall the last time she ate. Patient's daughter said that her mom's medications are handled and administered by the TEST INSPECTION ENGINEER. Unsure insulin dose. Her sugars were running HIGH last week, unknown if dose was adjusted. MD complaint: altered mental status and other (hypoglycemia) Onset (ago): unknown Timing confirmed by: family member Severity: moderate Context: diabetes Associated symptoms: loss of appetite and nausea/vomiting Treatments prior to arrival: glucose Related Data Home Medications Medication Instructions Recorded Confirmed promethazine 25 mg tablet 25 mg PO TID 04/10/20 06/29/21 amitriptyline 50 mg tablet 50 mg PO BEDTIME 05/12/20 06/29/21 atorvastatin 80 mg tablet 80 mg PO BEDTIME 05/12/20 06/29/21 insulin regular hum U-500 conc 500 30 unit SUBCUT QAM 05/12/20 06/29/21 unit/mL subcutaneous soln (Humulin R U-500 (Concentrated) Insulin) isosorbide mononitrate 30 mg 30 mg PO DAILY 05/12/20 06/29/21 tablet,extended release 24 hr losartan 100 mg tablet 100 mg PO DAILY 05/12/20 06/29/21 metoprolol succinate 100 mg 100 mg PO BID 05/12/20 06/29/21 tablet,extended release 24 hr niacin 1,000 mg tablet,extended 1,000 mg PO BEDTIME 05/12/20 06/29/21 release 24 hr omeprazole 20 mg capsule,delayed 20 mg PO BID 05/12/20 06/29/21 release topiramate 100 mg tablet 100 mg PO DAILY@1700 05/12/20 06/29/21 acetaminophen 325 mg tablet 650 mg PO Q6H PRN 06/29/21 06/29/21 alprazolam 0.25 mg tablet (Xanax) 1 tab PO TID 06/29/21 06/29/21 amlodipine 5 mg tablet 5 mg PO DAILY 06/29/21 06/29/21 leqfqjceqn-yahquchguwwvs-boqcvkiu 1 cap PO TID PRN 06/29/21 06/29/21 50 mg-300 mg-40 mg capsule (Fioricet) diphenoxylate-atropine 2.5 1 tab PO BID 06/29/21 06/29/21 mg-0.025 mg tablet (Lomotil) duloxetine 20 mg capsule,delayed 20 mg PO BID 06/29/21 06/29/21 release ergocalciferol (vitamin D2) 1,000 5 tab PO MO 06/29/21 06/29/21 unit tablet gabapentin 400 mg capsule 400 mg PO TID 06/29/21 06/29/21 hydromorphone 2 mg tablet 1 tab PO DAILY PRN 06/29/21 06/29/21 (Dilaudid) loratadine 10 mg tablet 10 mg PO DAILY 06/29/21 06/29/21 metformin 500 mg tablet,extended 1,000 mg PO DAILY 06/29/21 06/29/21 release 24 hr topiramate 50 mg tablet 50 mg PO DAILY 06/29/21 06/29/21 Previous Rx's Medication Instructions Recorded melatonin 3 mg tablet 6 mg PO BEDTIME #30 tab 02/09/21 Allergies Allergy/AdvReac Type Severity Reaction Status Date / Time Penicillins [PENICILLINS] Allergy Mild HIVES Verified 05/25/20 04:33 clarithromycin [From Biaxin] Allergy Unknown HIVES Verified 05/25/20 04:33 penicillin V Allergy Unknown rash, Verified 05/25/20 04:33 throat tight bioxin Allergy Unknown Unknown Uncoded 05/25/20 04:33 penicillin Allergy Unknown Unknown Uncoded 05/25/20 04:33 [facility] Past Medical History Medical History Anxiety Below knee amputation CAD (coronary artery disease) Chronic pain syndrome Depression Gastroparesis History of gastrostomy tube placement History of peptic ulcer disease HTN (hypertension) IDDM (insulin dependent diabetes mellitus) Liver lesion Myocardial infarction Wheelchair bound Surgical History History of back surgery Hx of BKA Family History Family History Father Coronary arteriosclerosis Social History Social History Household Members: Unknown / Unable to assess Housing: Unknown / Unable to assess Are you a primary laboratory animal care veterinarian to a significant other at home: No Do you presently have visiting nurse or other home services: Yes Unable to assess alcohol history related to: Unable to respond Alcohol intake: never Patient Tobacco Use Status: Tobacco use Unknown Second Hand Smoke Exposure: No Advance Directives: Yes Advance Directives on File: Yes Advance Directives Date on File: 05/12/20 service: No Current occupational status: unemployed and disabled Physical Exam ED Vital Signs: Vital Signs - 24 hr 06/29/21 15:01 Temperature 97.9 F Pulse Rate 71 Respiratory Rate 18 Blood Pressure 130/55 L Pulse Oximetry 97 BMI result Body Mass Index 32.9 Appearance: Lethargic middle aged female, eyes open, appears older than stated age, no distress Eyes: Pupils equal, round and reactive to light. ENT: Pharynx normal. Neck: Normal inspection. Neck supple. CVS: Normal heart rate and rhythm. Pulses normal. Respiratory: No respiratory distress. Breath sounds normal. Abdomen: Obese, Soft with palpable gastric pacer in LUQ, and nontender. no rebound or guarding. normal +BS x4 Skin: Skin warm and dry. Normal skin color. Normal skin turgor. No rashes. Extremities: s/p right BKA, left lower extremity without edema, left medial heel with 4cm irregular shaped, superficial chronic ulceration wtih mild surrounding erythema, no warmth, drainage or foul smell Neuro: lethargic, Oriented X 2, answers Y/N questions confused. moves all extremities, slow to respond Course Course Course Narrative: 61 y/o female with history of DM on insulin, gastroparesis s/p gastric pacemaker, chronic pain on chronic opiates, anxiety on chronic benzos, CAD, CVA and other medical comorbidities presents to the ER with AMS in the setting of severe hypoglyecemia. Glucose 20 --> IM glucagon from EMS --> 54 --> IM Glucagon and D50 on arrival to the ED --> 189 with improvement in mental status. Reports nausea, upset stomach and diarrhea today. Poor historian. Will get full metabolic workup and monitor glucose closely. Reevaluation(s) Reevaluation #1: Glucose 155. Awake and drinking orange juice. Neuro exam is nonfocal, speaking in complete sentences with difficulty, family at the bedside. Mg ++ 1.4, getting IV repletion. Glucose on serum chem was 201. Reevaluation #2: 5:40pm - CBC with leukocytosis 17.7K. She reports 3 episodes of loose stool earlier today with multiple episodes the last few days as well. She has been on oral abx for the last 1 week for infection in her left heel. She reports the left heel is improving significantly and pain is improved with PO abx (cannot recall the name). Exam concerning for surrounding cellulitis, Also concern for possible C diff colitis. Will get stool sample (no diarrhea since arrival) and CT scan of her abdomen. Will also get XR of the left caclcaneous - wound appears to be improving, no fluctuance to suggest abscess. Infection is suspected at this time. She does not meet sepsis criteria. She has allergy to PCN. Will cover with Igor - d/w Dr. Shultz. She will require admission pending completed workup with CT scan head, abd/pelvis, and XR heel still pending. Signed out to Tosin PORTILLO who will assume care and plan for admission. MDM - Altered Mental Status Differential Diagnosis Differential diagnosis: Likely alcoholic intoxication, altered mental status, delirium, encephalopathy, hypoglycemia, hyponatremia, overdose polysubstance, renal failure, subarachnoid hemorrhage and sepsis Medical Records Attestation: I reviewed the patient's medical records. Lab Data Attestation: I reviewed the patient's lab results. Result diagrams: 06/29/21 17:26 06/29/21 16:10 Labs: Lab Results 06/29/21 06/29/21 06/29/21 Range/Units 14:51 15:10 15:48 WBC (4.8-10.8) X10*3/uL RBC (4.20-5.50) X10*6/uL Hgb (12.0-16.0) g/dl Hct (37.0-47.0) % MCV (80.0-98.0) fL MCH (27.0-33.0) pg MCHC (31.0-35.0) g/dl RDW (11.0-16.0) % Plt Count (160-400) X10*3/uL MPV (9.4-12.3) fL Immature Gran % (Auto) (0.0-0.4) % Neut % (Auto) (45-73) % Lymph % (Auto) (20-40) % Rincon % (Auto) (2-11) % Eos % (Auto) (0-4) % Baso % (Auto) (0-2) % Lymph # (Auto) (1.2-4.9) X10*3/uL [place] # (Auto) (0.1-1.2) X10*3/uL Eos # (Auto) (0.0-0.4) X10*3/uL Baso # (Auto) (0.0-0.2) X10*3/uL Abs Immat Gran (auto) (0.00-0.03) X10*3/uL Absolute Neuts (auto) (2.0-8.3) x10*3/uL Absolute Nucleated RBC (0.0-0.012) X10*3/uL Nucleated RBC % (auto) (0.0-0.2) /100WBC PT (9.9-13.0) SEC INR (0.9-1.1) APTT (24.1-38.0) SEC Sodium (135-145) mmol/L Potassium (3.3-5.1) mmol/L Chloride (96-108) mmol/L Carbon Dioxide (22-29) mmol/L Anion Gap (12-20) BUN (9-16) mg/dL Creatinine (0.5-1.4) mg/dL Estim Creat Clear Calc Estimated GFR POC Glucose 55 L* 189 H (60-115) mg/dL Random Glucose (60-115) mg/dL Lactic Acid (0.5-2.0) mmol/L Calcium (8.4-10.2) mg/dL Magnesium (1.6-2.6) mg/dL Total Bilirubin (0.0-1.0) mg/dL Direct Bilirubin (0.0-0.5) mg/dL AST (5-31) U/L ALT (0-31) U/L Alkaline Phosphatase (39-117) U/L Total Protein (6.5-8.0) g/dL Albumin (3.5-5.0) g/dL Ethyl Alcohol < 10 mg/dL COVID-19 (TA) (Negative) COVID-19 Clin Com Influenza Type A (TIMOTHY) (Negative) Influenza Type B (TIMOTHY) (Negative) Influenza A & B Note 06/29/21 06/29/21 06/29/21 Range/Units 16:01 16:02 16:10 WBC (4.8-10.8) X10*3/uL RBC (4.20-5.50) X10*6/uL Hgb (12.0-16.0) g/dl Hct (37.0-47.0) % MCV (80.0-98.0) fL MCH (27.0-33.0) pg MCHC (31.0-35.0) g/dl RDW (11.0-16.0) % Plt Count (160-400) X10*3/uL MPV (9.4-12.3) fL Immature Gran % (Auto) (0.0-0.4) % Neut % (Auto) (45-73) % Lymph % (Auto) (20-40) % Rin[place] % (Auto) (2-11) % Eos % (Auto) (0-4) % Baso % (Auto) (0-2) % Lymph # (Auto) (1.2-4.9) X10*3/uL [place] # (Auto) (0.1-1.2) X10*3/uL Eos # (Auto) (0.0-0.4) X10*3/uL Baso # (Auto) (0.0-0.2) X10*3/uL Abs Immat Gran (auto) (0.00-0.03) X10*3/uL Absolute Neuts (auto) (2.0-8.3) x10*3/uL Absolute Nucleated RBC (0.0-0.012) X10*3/uL Nucleated RBC % (auto) (0.0-0.2) /100WBC PT 10.6 (9.9-13.0) SEC INR 0.9 (0.9-1.1) APTT 27.3 (24.1-38.0) SEC Sodium (135-145) mmol/L Potassium (3.3-5.1) mmol/L Chloride (96-108) mmol/L Carbon Dioxide (22-29) mmol/L Anion Gap (12-20) BUN (9-16) mg/dL Creatinine (0.5-1.4) mg/dL Estim Creat Clear Calc Estimated GFR POC Glucose 155 H (60-115) mg/dL Random Glucose (60-115) mg/dL Lactic Acid (0.5-2.0) mmol/L Calcium (8.4-10.2) mg/dL Magnesium (1.6-2.6) mg/dL Total Bilirubin (0.0-1.0) mg/dL Direct Bilirubin (0.0-0.5) mg/dL AST (5-31) U/L ALT (0-31) U/L Alkaline Phosphatase (39-117) U/L Total Protein (6.5-8.0) g/dL Albumin (3.5-5.0) g/dL Ethyl Alcohol mg/dL COVID-19 (TA) Negative (Negative) COVID-19 Clin Com See Note Influenza Type A (TIMOTHY) (Negative) Influenza Type B (TIMOTHY) (Negative) Influenza A & B Note 06/29/21 06/29/21 06/29/21 Range/Units 16:10 16:10 16:10 WBC (4.8-10.8) X10*3/uL RBC (4.20-5.50) X10*6/uL Hgb (12.0-16.0) g/dl Hct (37.0-47.0) % MCV (80.0-98.0) fL MCH (27.0-33.0) pg MCHC (31.0-35.0) g/dl RDW (11.0-16.0) % Plt Count (160-400) X10*3/uL MPV (9.4-12.3) fL Immature Gran % (Auto) (0.0-0.4) % Neut % (Auto) (45-73) % Lymph % (Auto) (20-40) % Rincon % (Auto) (2-11) % Eos % (Auto) (0-4) % Baso % (Auto) (0-2) % Lymph # (Auto) (1.2-4.9) X10*3/uL [place] # (Auto) (0.1-1.2) X10*3/uL Eos # (Auto) (0.0-0.4) X10*3/uL Baso # (Auto) (0.0-0.2) X10*3/uL Abs Immat Gran (auto) (0.00-0.03) X10*3/uL Absolute Neuts (auto) (2.0-8.3) x10*3/uL Absolute Nucleated RBC (0.0-0.012) X10*3/uL Nucleated RBC % (auto) (0.0-0.2) /100WBC PT (9.9-13.0) SEC INR (0.9-1.1) APTT (24.1-38.0) SEC Sodium 140 (135-145) mmol/L Potassium 3.7 (3.3-5.1) mmol/L Chloride 111 H (96-108) mmol/L Carbon Dioxide 22 (22-29) mmol/L Anion Gap 11 L (12-20) BUN 9 (9-16) mg/dL Creatinine 0.70 (0.5-1.4) mg/dL Estim Creat Clear Calc 90.0 Estimated GFR > 60 POC Glucose (60-115) mg/dL Random Glucose 206 H (60-115) mg/dL Lactic Acid 2.0 (0.5-2.0) mmol/L Calcium 9.4 (8.4-10.2) mg/dL Magnesium 1.4 L* (1.6-2.6) mg/dL Total Bilirubin 0.2 (0.0-1.0) mg/dL Direct Bilirubin < 0.2 (0.0-0.5) mg/dL AST 21 (5-31) U/L ALT 15 (0-31) U/L Alkaline Phosphatase 69 D (39-117) U/L Total Protein 6.0 L (6.5-8.0) g/dL Albumin 3.4 L (3.5-5.0) g/dL Ethyl Alcohol mg/dL COVID-19 (TA) (Negative) COVID-19 Clin Com Influenza Type A (TMIOTHY) Negative (Negative) Influenza Type B (TIMOTHY) Negative (Negative) Influenza A & B Note See Note 06/29/21 Range/Units 17:26 WBC 17.7 H (4.8-10.8) X10*3/uL RBC 3.33 L (4.20-5.50) X10*6/uL Hgb 10.5 L (12.0-16.0) g/dl Hct 32.1 L (37.0-47.0) % MCV 96.4 (80.0-98.0) fL MCH 31.5 (27.0-33.0) pg MCHC 32.7 (31.0-35.0) g/dl RDW 14.6 (11.0-16.0) % Plt Count 192 (160-400) X10*3/uL MPV 10.6 (9.4-12.3) fL Immature Gran % (Auto) 0.6 H (0.0-0.4) % Neut % (Auto) 83.0 H (45-73) % Lymph % (Auto) 10.3 L (20-40) % [place] % (Auto) 5.9 (2-11) % Eos % (Auto) 0.1 (0-4) % Baso % (Auto) 0.1 (0-2) % Lymph # (Auto) 1.8 (1.2-4.9) X10*3/uL [place] # (Auto) 1.1 (0.1-1.2) X10*3/uL Eos # (Auto) 0.0 (0.0-0.4) X10*3/uL Baso # (Auto) 0.0 (0.0-0.2) X10*3/uL Abs Immat Gran (auto) 0.10 H (0.00-0.03) X10*3/uL Absolute Neuts (auto) 14.7 H (2.0-8.3) x10*3/uL Absolute Nucleated RBC 0.000 (0.0-0.012) X10*3/uL Nucleated RBC % (auto) 0.0 (0.0-0.2) /100WBC PT (9.9-13.0) SEC INR (0.9-1.1) APTT (24.1-38.0) SEC Sodium (135-145) mmol/L Potassium (3.3-5.1) mmol/L Chloride (96-108) mmol/L Carbon Dioxide (22-29) mmol/L Anion Gap (12-20) BUN (9-16) mg/dL Creatinine (0.5-1.4) mg/dL Estim Creat Clear Calc Estimated GFR POC Glucose (60-115) mg/dL Random Glucose (60-115) mg/dL Lactic Acid (0.5-2.0) mmol/L Calcium (8.4-10.2) mg/dL Magnesium (1.6-2.6) mg/dL Total Bilirubin (0.0-1.0) mg/dL Direct Bilirubin (0.0-0.5) mg/dL AST (5-31) U/L ALT (0-31) U/L Alkaline Phosphatase (39-117) U/L Total Protein (6.5-8.0) g/dL Albumin (3.5-5.0) g/dL Ethyl Alcohol mg/dL COVID-19 (TA) (Negative) COVID-19 Clin Com Influenza Type A (TIMOTHY) (Negative) Influenza Type B (TIMOTHY) (Negative) Influenza A & B Note ECG Data ECG #1: Attestation: I personally reviewed and interpreted this ECG as follows: ECG interpretation date: 06/29/21 ECG interpretation time: 15:38 Prior ECG tracings: available for review Interpretation: normal sinus rhythm, HR 68 bpm, normal MD interval, T wve inversions in leads III, aVF which are unchanged from prior 02/07. No ST segment elevations Procedures EJ/Peripheral Line Neck L: Size (gauge): 18 IV Secured and Dressing Applied: Yes Patient Tolerated Procedure: well and no complications Critical Care Time Critical Care Time Critical Care Time: Yes Total Critical Care Time: 44 Attestation: I have personally provided critical care time exclusive of time spent on separately billable procedures. Time includes review of lab data, radiology results, frequent bedside reassessments and monitoring for potential decompensation. Intervention performed as documented. Discharge Plan Discharge Clinical Impression: Acute metabolic encephalopathy, Hypoglycemia, Cellulitis Patient Disposition: Admitted As Inpatient
[2021-06-29] MEDS: Dextrose 50 % 25 GM/50 ML SYRINGE IVPUSH (15:07)
[2021-06-29] MEDS: 0.9 % Sodium Chloride 1,000 ML 999 ML IVCONT (15:09)
[2021-06-29 15:43] LABS: Glucose, Whole Blood 189 mg/dL (60-115)
[2021-06-29 15:43] LABS: Glucose, Whole Blood 55 mg/dL (60-115)
--- NOTE | 2021-06-29 16:09 | PHA.MEDREC ---
Pharmacy Consult ? Medication Reconciliation Pharmacy has completed the medication reconciliation. Spoke with her DRAW FURNACE TENDER who was able to give me an extensive list of medications. When asked about what insulin the patient takes she could only tell me 30 units in the morning and a sliding scale as needed. I asked if it was the U-500 insulin which was listed in the patients history and she said she believed it was. The patients external pharmacy fill history is not available to us.
[2021-06-29 16:11] LABS: Ethanol < 10 mg/dL
[2021-06-29 16:23] LABS: Glucose, Whole Blood 155 mg/dL (60-115)
[2021-06-29 16:30] LABS: INTERNATIONAL NORM RATIO 0.9 (0.9-1.1); Prothrombin Time 10.6 SEC (9.9-13.0)
[2021-06-29 16:33] LABS: Partial Thromboplastin Time 27.3 SEC (24.1-38.0)
[2021-06-29 16:40] LABS: COVID-19 Test Negative (Negative); IDNOW Serial# 16C4AD1C
[2021-06-29 16:40] LABS: Alanine Aminotransferase 15 U/L (0-31); Albumin Level 3.4 g/dL (3.5-5.0); Alkaline Phosphatase 69 U/L (39-117); Anion Gap 11 (12-20); Aspartate Amino Transferase 21 U/L (5-31); Bilirubin Direct < 0.2 mg/dL (0.0-0.5); Bilirubin Total 0.2 mg/dL (0.0-1.0); Blood Urea Nitrogen 9 mg/dL (9-16); Calcium 9.4 mg/dL (8.4-10.2); Carbon Dioxide 22 mmol/L (22-29); Chloride 111 mmol/L (96-108); Estimated Glomerular Filt Rate > 60; Glucose Random 206 mg/dL (60-115); Influenza A Negative (Negative); Influenza B2 Negative (Negative); Magnesium 1.4 mg/dL (1.6-2.6); Potassium 3.7 mmol/L (3.3-5.1); Sodium 140 mmol/L (135-145)
[2021-06-29 17:31] LABS: MANUAL DIFF FLAG NO
[2021-06-29 17:32] LABS: Basophils Percent Auto 0.1 % (0-2); Eosinophils Percent Auto 0.1 % (0-4); Hematocrit 32.1 % (37.0-47.0); Hemoglobin 10.5 g/dl (12.0-16.0); Imm Gran Pct Auto 0.6 % (0.0-0.4); Lymphocytes Absolute Auto 1.8 X10*3/uL (1.2-4.9); Lymphocytes Percent Auto 10.3 % (20-40); Mean Corpuscular HGB Conc 32.7 g/dl (31.0-35.0); Mean Corpuscular Hemoglobin 31.5 pg (27.0-33.0); Mean Corpuscular Volume 96.4 fL (80.0-98.0); Mean Platelet Volume 10.6 fL (9.4-12.3); Monocytes Absolute Auto 1.1 X10*3/uL (0.1-1.2); Monocytes Percent Auto 5.9 % (2-11); Neutrophils Absolute Auto 14.7 x10*3/uL (2.0-8.3); Platelet Count 192 X10*3/uL (160-400); Red Blood Count 3.33 X10*6/uL (4.20-5.50); Red Cell Distribution Width 14.6 % (11.0-16.0); White Blood Count 17.7 X10*3/uL (4.8-10.8)
[2021-06-29 17:56] LABS: Troponin-I High Sensitivity 9.9 ng/L (<3.5-17.0)
[2021-06-29] MEDS: iohexoL 350 MG/ML 100 ML INFUS..BTL IV (17:59)
[2021-06-29] MEDS: Magnesium Sulfate/H2O 2 GM/50 ML PIGGYBACK IV (18:11)
[2021-06-29 18:39] VITALS: BP 129/54; PULSE 69; RESP 16; TEMP 36.4; O2SAT 989
--- NOTE | 2021-06-29 18:43 | PC.NURSE ---
Straight catheter placed, 1000ml removed, urine sent down to lab. Pt toleratd well.
[2021-06-29 18:53] LABS: Appearance Urine CLEAR; Color Urine YELLOW; Glucose Urine UA 100 MG/DL (NEG); Leukocyte Esterase Urine NEG (NEG); Nitrite Urine NEG (NEG); PH 6.5 (5.0-8.0); Urine Blood NEG (NEG); Urine Ketones NEG (NEG); Urine Protein NEG (NEG-TRACE)
[2021-06-29 19:05] LABS: Amphetamine Screen Urine Not Detected (Not Detect); Barbiturates, Urine POSITIVE (Not Detect); Benzodiazepines Screen Urine Not Detected (Not Detect); Cannabinoid Screen Urine Not Detected (Not Detect); Cocaine Screen Urine Not Detected (Not Detect); Fentanyl, urine Not Detected (Not Detect); Opiate Screen Urine Not Detected (Not Detect); Phencyclidine Screen Urine Not Detected (Not Detect)
[2021-06-29] MEDS: Doxycycline Hyclate 100 MG in 0.9 % Sodium Chloride 250 ML 166.67 MG IV (19:31)
--- NOTE | 2021-06-29 20:12 | PC.NURSE ---
Patient came in via ambulance lethargic but responding to questions. Patient given glucagon by ambulance personnel. Dr. Flood placed a 20g in left ej dressing clean, dry and intact. tele: sinus rhythm Patient given medications ordered. Patient labs, xray, orders done. Will continue with plan of care.
[2021-06-29] MEDS: vancomycin HCL 1,000 MG in 0.9 % Sodium Chloride 250 ML 270 MG IV (21:45)
--- NOTE | 2021-06-29 23:28 | P.HPHOSP_ITS ---
History of Present Illness Date of Service: 06/29/21 Chief Complaint: Unresponsive episode 61-year-old female with a past medical history of hypertension, hyperlipidemia, insulin-dependent diabetes, history of gastroparesis, gastrostomy tube placement, CAD, below-knee amputation, anxiety, depression, wheelchair-bound, history of a peptic ulcer disease; history of chronic pain syndrome, decubitus ulcer presented to the hospital today with a chief complaint of brief unresponsive episode. Patient is a poor historian Reportedly patient mentioned that she was with her DIRECTOR PHYSICAL and she should only became unresponsive and not responded to the DIRECTOR PHYSICAL who subsequently called the EMS and presented to the ER for further evaluation. Patient currently denies any chest pain palpitations lightheadedness or dizziness. Denies any fever chills cough. Reports he has mild abdominal discomfort and diarrhea. Mentioned she has chronic diarrhea. Patient also mentioned that she had left heel ulcer and was on antibiotics for about a week; mentions that heel ulcer is healing Review of all other systems is negative except mentioned above ER course: Per ER team patient initially noted to fingerstick glucose of 20 10 she was found unresponsive; DIRECTOR PHYSICAL noted the patient was drowsy and lethargic with slurred speech; EMS gave the patient IM glucagon followed by fingerstick glucose improved to 54; followed by patient received D50 on arrival to the ED with improvement in fingerstick glucose to 189; mental status gradually improved; patient also complained of nausea vomiting. Patient was empirically given vancomycin and doxycycline; on labs noted to have leukocytosis of 17.7; CT head showed no acute findings; chronic changes CT abdomen showed chronic changes;, subtle colonic wall thickening but no significant pericolonic inflammatory changes; admitted for further management [facility] Medical History Anxiety Below knee amputation CAD (coronary artery disease) Chronic pain syndrome Depression Gastroparesis History of gastrostomy tube placement History of peptic ulcer disease HTN (hypertension) IDDM (insulin dependent diabetes mellitus) Liver lesion Myocardial infarction Wheelchair bound Family History Father Coronary arteriosclerosis Surgical History History of back surgery Hx of BKA Social History Household Members: Unknown / Unable to assess Housing: Unknown / Unable to assess Are you a primary health care law specialist to a significant other at home: No Do you presently have visiting nurse or other home services: Yes Unable to assess alcohol history related to: Unable to respond Alcohol intake: never Patient Tobacco Use Status: Tobacco use Unknown Second Hand Smoke Exposure: No Advance Directives: Yes Advance Directives on File: Yes Advance Directives Date on File: 05/12/20 service: No Current occupational status: unemployed and disabled Meds Allergies Allergy/AdvReac Type Severity Reaction Status Date / Time Penicillins [PENICILLINS] Allergy Mild HIVES Verified 05/25/20 04:33 clarithromycin [From Biaxin] Allergy Unknown HIVES Verified 05/25/20 04:33 penicillin V Allergy Unknown rash, Verified 05/25/20 04:33 throat tight bioxin Allergy Unknown Unknown Uncoded 05/25/20 04:33 penicillin Allergy Unknown Unknown Uncoded 05/25/20 04:33 Active Medications: Current Medications Acetaminophen/Butalbital/Caffeine (Butalb/Acetamin/Caff 50/325/40 Tablet) 1 tab PO TID PRN PRN Reason: migraine Alprazolam (Alprazolam 0.25 Mg Tablet) 0.25 mg PO TID SANTI Amitriptyline HCl (Amitriptyline Hcl 50 Mg Tablet) 50 mg PO BEDTIME SANTI Amlodipine Besylate (Amlodipine Besylate 5 Mg Tablet) 5 mg PO DAILY [facility]; Protocol Atorvastatin Calcium (Atorvastatin Calcium 80 Mg Tablet) 80 mg PO BEDTIME SANTI Dextrose (Dextrose 50 % 25 Gm/50 Ml Syringe) 25 gm IVPUSH Q15M PRN; Protocol PRN Reason: per Hypoglycemia Standing Ord. Diphenoxylate HCl/Atropine (Diphenoxylate/Atrop 2.5/0.025 Tablet) 1 tab PO BID SANTI Duloxetine HCl (Duloxetine Hcl 20 Mg Capsule.Dr) 20 mg PO BID SANTI Gabapentin (Gabapentin 400 Mg Capsule) 400 mg PO TID SANTI Glucose (Glucose Gel 15 Gm Gel..Gram.) 15 gm PO Q15M PRN; Protocol PRN Reason: per Hypoglycemia Standing Ord. Ceftriaxone Sodium 1 gm/ (Sodium Chloride) 50 mls @ 100 mls/hr IV Q24H SANTI Metronidazole (Flagyl) 500 mg in 100 mls @ 100 mls/hr IV Q8H SANTI Insulin Human Lispro (Insulin Lispro 100 Unit/Ml 3 Ml Vial) 0 unit SUBCUT QIDACHS [facility]; Protocol Isosorbide Mononitrate (Isosorbide Mononitrate 30 Mg Tab.Er.24h) 30 mg PO DAILY [facility]; Protocol Loratadine (Loratadine 10 Mg Tablet) 10 mg PO DAILY [facility] Losartan Potassium (Losartan Potassium 50 Mg Tablet) 100 mg PO DAILY [facility]; Protocol Melatonin (Melatonin 3 Mg Tablet) 6 mg PO BEDTIME [facility] Metoprolol Succinate (Metoprolol Succinate Er 100 Mg Tab.Er.24h) 100 mg PO BID [facility]; Protocol Non-Formulary Medication (Ergocalciferol (Vitamin D2)) 5 tab PO MO [facility] Non-Formulary Medication (Niacin) 1,000 mg PO BEDTIME [facility] Omeprazole (Omeprazole 20 Mg Capsule.Dr) 20 mg PO BID [facility] Pharmacy Consult (Consult Rx Perform Med Rec) 1 each MISCELLANE ONCE PRN PRN Reason: Consult order Promethazine HCl (Promethazine Hcl 25 Mg Tablet) 25 mg PO TID [facility] Topiramate (Topiramate 25 Mg Tablet) 50 mg PO DAILY [facility] Topiramate (Topiramate 100 Mg Tablet) 100 mg PO DAILY@1700 [facility] Home Medications Medication Instructions Recorded Confirmed Last Taken Type promethazine 25 mg tablet 25 mg PO TID 04/10/20 06/29/21 01/28/21 History amitriptyline 50 mg tablet 50 mg PO BEDTIME 05/12/20 06/29/21 01/28/21 History atorvastatin 80 mg tablet 80 mg PO BEDTIME 05/12/20 06/29/21 01/28/21 History insulin regular hum U-500 conc 500 30 unit SUBCUT QAM 05/12/20 06/29/21 01/29/21 History unit/mL subcutaneous soln (Humulin R U-500 (Concentrated) Insulin) isosorbide mononitrate 30 mg 30 mg PO DAILY 05/12/20 06/29/21 01/29/21 History tablet,extended release 24 hr losartan 100 mg tablet 100 mg PO DAILY 05/12/20 06/29/21 01/29/21 History metoprolol succinate 100 mg 100 mg PO BID 05/12/20 06/29/21 01/29/21 History tablet,extended release 24 hr niacin 1,000 mg tablet,extended 1,000 mg PO BEDTIME 05/12/20 06/29/21 01/28/21 History release 24 hr omeprazole 20 mg capsule,delayed 20 mg PO BID 05/12/20 06/29/21 01/27/21 History release topiramate 100 mg tablet 100 mg PO DAILY@1700 05/12/20 06/29/21 01/29/21 History acetaminophen 325 mg tablet 650 mg PO Q6H PRN 06/29/21 06/29/21 Unknown History alprazolam 0.25 mg tablet (Xanax) 1 tab PO TID 06/29/21 06/29/21 Unknown History amlodipine 5 mg tablet 5 mg PO DAILY 06/29/21 06/29/21 Unknown History dyzkvyssws-vnajxmeexgmew-csmykgxg 1 cap PO TID PRN 06/29/21 06/29/21 Unknown History 50 mg-300 mg-40 mg capsule (Fioricet) diphenoxylate-atropine 2.5 1 tab PO BID 06/29/21 06/29/21 Unknown History mg-0.025 mg tablet (Lomotil) duloxetine 20 mg capsule,delayed 20 mg PO BID 06/29/21 06/29/21 Unknown History release ergocalciferol (vitamin D2) 1,000 5 tab PO MO 06/29/21 06/29/21 Unknown History unit tablet gabapentin 400 mg capsule 400 mg PO TID 06/29/21 06/29/21 Unknown History hydromorphone 2 mg tablet 1 tab PO DAILY PRN 06/29/21 06/29/21 Unknown History (Dilaudid) loratadine 10 mg tablet 10 mg PO DAILY 06/29/21 06/29/21 Unknown History metformin 500 mg tablet,extended 1,000 mg PO DAILY 06/29/21 06/29/21 Unknown History release 24 hr topiramate 50 mg tablet 50 mg PO DAILY 06/29/21 06/29/21 Unknown History Physical Exam Vital Signs and Narrative: Vital Signs: Last Vital Signs Temp 97.6 F 06/29/21 18:39 Pulse 69 06/29/21 18:39 Resp 16 06/29/21 18:39 BP 129/54 L 06/29/21 18:39 Pulse Ox 989 H 06/29/21 18:39 BMI result Body Mass Index 32.9 Gen: Appears be in no acute distress HEENT: NCAT, Moist mucosa. Pulmonary: Vesicular breath sounds, fair air entry CVS: Normal S1-S2 Abdomen: BS+, Soft, Nontender Extremities: Warm well perfused; right BKA; left heel ulcer as showing the p icture below. Appears healing. Neuro: Alert and awake. Oriented times 2-3; grossly nonfocal Results Labs CBC and Chem 7: 06/29/21 17:26 06/29/21 16:10 Labs: Laboratory Results - last 24 hr 06/29/21 06/29/21 06/29/21 14:51 15:10 15:48 MCV MCH MCHC RDW Plt Count MPV Immature Gran % (Auto) Neut % (Auto) Lymph % (Auto) [place] % (Auto) Eos % (Auto) Baso % (Auto) Lymph # (Auto) [place] # (Auto) Eos # (Auto) Baso # (Auto) Abs Immat Gran (auto) Absolute Neuts (auto) Absolute Nucleated RBC Nucleated RBC % (auto) PT INR APTT Anion Gap Estim Creat Clear Calc Estimated GFR POC Glucose 55 L* 189 H Random Glucose Lactic Acid Calcium Magnesium Total Bilirubin Direct Bilirubin AST ALT Alkaline Phosphatase Troponin I High Sens Total Protein Albumin Urine Color Urine Appearance Urine pH Ur Specific [place] Urine Protein Urine Glucose (UA) Urine Ketones Urine Blood Urine Nitrite Ur Leukocyte Esterase Urine Opiates Screen Urine Fentanyl Screen Ur Barbiturates Screen Ur Phencyclidine Scrn Ur Amphetamines Screen U Benzodiazepines Scrn Urine Cocaine Screen U Marijuana (THC) Screen Ethyl Alcohol < 10 COVID-19 (TA) COVID-19 Clin Com Influenza Type A (TIMOTHY) Influenza Type B (TIMOTHY) Influenza A & B Note 06/29/21 06/29/21 06/29/21 16:01 16:02 16:10 MCV MCH MCHC RDW Plt Count MPV Immature Gran % (Auto) Neut % (Auto) Lymph % (Auto) [place] % (Auto) Eos % (Auto) Baso % (Auto) Lymph # (Auto) [place] # (Auto) Eos # (Auto) Baso # (Auto) Abs Immat Gran (auto) Absolute Neuts (auto) Absolute Nucleated RBC Nucleated RBC % (auto) PT 10.6 INR 0.9 APTT 27.3 Anion Gap Estim Creat Clear Calc Estimated GFR POC Glucose 155 H Random Glucose Lactic Acid Calcium Magnesium Total Bilirubin Direct Bilirubin AST ALT Alkaline Phosphatase Troponin I High Sens Total Protein Albumin Urine Color Urine Appearance Urine pH Ur Specific [place] Urine Protein Urine Glucose (UA) Urine Ketones Urine Blood Urine Nitrite Ur Leukocyte Esterase Urine Opiates Screen Urine Fentanyl Screen Ur Barbiturates Screen Ur Phencyclidine Scrn Ur Amphetamines Screen U Benzodiazepines Scrn Urine Cocaine Screen U Marijuana (THC) Screen Ethyl Alcohol COVID-19 (TA) Negative COVID-19 Clin Com See Note Influenza Type A (TIMOTHY) Influenza Type B (TIMOTHY) Influenza A & B Note 06/29/21 06/29/21 06/29/21 16:10 16:10 16:10 MCV MCH MCHC RDW Plt Count MPV Immature Gran % (Auto) Neut % (Auto) Lymph % (Auto) [place] % (Auto) Eos % (Auto) Baso % (Auto) Lymph # (Auto) [place] # (Auto) Eos # (Auto) Baso # (Auto) Abs Immat Gran (auto) Absolute Neuts (auto) Absolute Nucleated RBC Nucleated RBC % (auto) PT INR APTT Anion Gap 11 L Estim Creat Clear Calc 90.0 Estimated GFR > 60 POC Glucose Random Glucose 206 H Lactic Acid 2.0 Calcium 9.4 Magnesium 1.4 L* Total Bilirubin 0.2 Direct Bilirubin < 0.2 AST 21 ALT 15 Alkaline Phosphatase 69 D Troponin I High Sens Total Protein 6.0 L Albumin 3.4 L Urine Color Urine Appearance Urine pH Ur Specific [place] Urine Protein Urine Glucose (UA) Urine Ketones Urine Blood Urine Nitrite Ur Leukocyte Esterase Urine Opiates Screen Urine Fentanyl Screen Ur Barbiturates Screen Ur Phencyclidine Scrn Ur Amphetamines Screen U Benzodiazepines Scrn Urine Cocaine Screen U Marijuana (THC) Screen Ethyl Alcohol COVID-19 (TA) COVID-19 Clin Com Influenza Type A (TIMOTHY) Negative Influenza Type B (TIMOTHY) Negative Influenza A & B Note See Note 06/29/21 06/29/21 06/29/21 17:26 17:26 18:36 MCV 96.4 MCH 31.5 MCHC 32.7 RDW 14.6 Plt Count 192 MPV 10.6 Immature Gran % (Auto) 0.6 H Neut % (Auto) 83.0 H Lymph % (Auto) 10.3 L [place] % (Auto) 5.9 Eos % (Auto) 0.1 Baso % (Auto) 0.1 Lymph # (Auto) 1.8 [place] # (Auto) 1.1 Eos # (Auto) 0.0 Baso # (Auto) 0.0 Abs Immat Gran (auto) 0.10 H Absolute Neuts (auto) 14.7 H Absolute Nucleated RBC 0.000 Nucleated RBC % (auto) 0.0 PT INR APTT Anion Gap Estim Creat Clear Calc Estimated GFR POC Glucose Random Glucose Lactic Acid Calcium Magnesium Total Bilirubin Direct Bilirubin AST ALT Alkaline Phosphatase Troponin I High Sens 9.9 Total Protein Albumin Urine Color YELLOW Urine Appearance CLEAR Urine pH 6.5 Ur Specific [place] 1.010 Urine Protein NEG Urine Glucose (UA) 100 H Urine Ketones NEG Urine Blood NEG Urine Nitrite NEG Ur Leukocyte Esterase NEG Urine Opiates Screen Urine Fentanyl Screen Ur Barbiturates Screen Ur Phencyclidine Scrn Ur Amphetamines Screen U Benzodiazepines Scrn Urine Cocaine Screen U Marijuana (THC) Screen Ethyl Alcohol COVID-19 (TA) COVID-19 Clin Com Influenza Type A (TIMOTHY) Influenza Type B (TIMOTHY) Influenza A & B Note 06/29/21 18:36 MCV MCH MCHC RDW Plt Count MPV Immature Gran % (Auto) Neut % (Auto) Lymph % (Auto) [place] % (Auto) Eos % (Auto) Baso % (Auto) Lymph # (Auto) [place] # (Auto) Eos # (Auto) Baso # (Auto) Abs Immat Gran (auto) Absolute Neuts (auto) Absolute Nucleated RBC Nucleated RBC % (auto) PT INR APTT Anion Gap Estim Creat Clear Calc Estimated GFR POC Glucose Random Glucose Lactic Acid Calcium Magnesium Total Bilirubin Direct Bilirubin AST ALT Alkaline Phosphatase Troponin I High Sens Total Protein Albumin Urine Color Urine Appearance Urine pH Ur Specific [place] Urine Protein Urine Glucose (UA) Urine Ketones Urine Blood Urine Nitrite Ur Leukocyte Esterase Urine Opiates Screen Not Detected Urine Fentanyl Screen Not Detected Ur Barbiturates Screen POSITIVE H Ur Phencyclidine Scrn Not Detected Ur Amphetamines Screen Not Detected U Benzodiazepines Scrn Not Detected Urine Cocaine Screen Not Detected U Marijuana (THC) Screen Not Detected Ethyl Alcohol COVID-19 (TA) COVID-19 Clin Com Influenza Type A (TIMOTHY) Influenza Type B (TIMOTHY) Influenza A & B Note Imaging Radiologist's Impressions: Impressions Chest X-Ray 06/29/21 15:33 IMPRESSION: No evidence for acute disease in the chest. Head CT 06/29/21 17:49 IMPRESSION: 1. No acute intracranial abnormality. 2. Chronic left DIRECTOR PHYSICAL territory infarct. Abdomen/Pelvis CT 06/29/21 18:07 IMPRESSION: Chronic appearing changes as described above. Overall the appearance is similar to the 01/26/2021 study. The distal colon is decompressed which makes evaluation for subtle colonic wall thickening difficult but I do not appreciate any significant pericolonic inflammatory change. Calcaneus X-Ray 06/29/21 18:10 FINDINGS/IMPRESSION: No acute fracture or dislocation. Stable chronic posttraumatic deformity of the distal tibia. No appreciable cortical erosion, focal osteopenia, periosteal reaction to suggest osteomyelitis. Moderate degenerative changes of the ankle with loss of tibiotalar joint space and degenerative spurring of the dorsal midfoot. Pes planus. Soft tissue swelling is noted along the plantar aspect of the heel. No subcutaneous emphysema. Assessment and Plan (1) Hypoglycemia: Status: Acute (2) Cellulitis: Status: Acute (3) Colitis: Status: Acute Plan 61-year-old female with a past medical history of hypertension, hyperlipidemia, insulin-dependent diabetes, history of gastroparesis, gastrostomy tube placement, CAD, below-knee amputation, anxiety, depression, wheelchair-bound, history of a peptic ulcer disease; history of chronic pain syndrome, decubitus ulcer presented to the hospital today with a chief complaint of brief unresponsive episode. Brief unresponsive episode: In the setting of hypoglycemia. Patient was noted to have fingerstick glucose of 20-status post IM glucagon and D50 with improvement in fingerstick glucose. Denies taking extra dose of insulins. Monitor fingerstick glucose. Emergency hypoglycemia protocol in place Monitor on telemetry EKG nonischemic Initial troponin 9.9-follow-up troponin pending CT head showed no acute intracranial process History of diabetes: Insulin sliding scale. Hold home metformin and Humulin R U 500 30U qam. Diarrhea: Supportive care. Stool studies ordered. CT abdomen showed chronic colonic wall thickening; no significant pericolonic wall changes. Nausea/vomiting: Patient has known history of gastroparesis. Supportive care. Advanced diet as tolerated. Hypomagnesemia: Repleted Heel ulcer: Appears healing. X-ray showed no acute findings. Continue doxycycline empirically. Id consult/will consult. Pressure ulcer care per RN History of hypertension/hyperlipidemia: Continue home losartan, metoprolol, amlodipine, statin History of CVA: Patient on statin. Aspirin not noted in her home medications. Will defer to the day hospitalist to confirm about aspirin with the patient's daughter/PCP History of mood disorder: Continue home Topamax, duloxetine, alprazolam History of chronic pain syndrome: Patient on Dilaudid p.r.n. DVT prophylaxis: Lovenox Code status: Full code Quality Stroke Does the patient have a stroke diagnosis?: No VTE Prior VTE?: No VTE Risk Level:: Medical - moderate - high VTE Device Contraindication: Treatment Not Indicated VTE Drug Contraindication: N/A - Med Ordered
[2021-06-29 23:36] VITALS: BP 152/57; PULSE 75; RESP 18; O2SAT 97
[2021-06-30] MEDS: cefTRIAXone sodium 1 GM in 0.9 % Sodium Chloride 50 ML IV (00:51)
[2021-06-30] MEDS: metroNIDAZOLE/NS 500 MG/100 ML PIGGYBACK 100 MG IV (00:51)
[2021-06-30] MEDS: Enoxaparin Sodium 40 MG/0.4 ML SYRINGE SUBCUT ×2 (00:52→23:16)
[2021-06-30] MEDS: 0.9 % Sodium Chloride Flush 3 ML SYRINGE IVFLUSH (00:55)
[2021-06-30 02:13] VITALS: BP 140/56; PULSE 66; RESP 16; TEMP 37.1; O2SAT 95
[2021-06-30 05:53] LABS: Basophils Percent Auto 0.2 % (0-2); Eosinophils Absolute Auto 0.1 X10*3/uL (0.0-0.4); Eosinophils Percent Auto 0.5 % (0-4); Hematocrit 30.4 % (37.0-47.0); Hemoglobin 10.3 g/dl (12.0-16.0); Imm Gran Abs Auto 0.02 X10*3/uL (0.00-0.03); Imm Gran Pct Auto 0.2 % (0.0-0.4); Lymphocytes Absolute Auto 3.6 X10*3/uL (1.2-4.9); Lymphocytes Percent Auto 37.7 % (20-40); MANUAL DIFF FLAG NO; Mean Corpuscular HGB Conc 33.9 g/dl (31.0-35.0); Mean Corpuscular Volume 94.4 fL (80.0-98.0); Mean Platelet Volume 10.9 fL (9.4-12.3); Monocytes Absolute Auto 0.8 X10*3/uL (0.1-1.2); Monocytes Percent Auto 8.3 % (2-11); Neutrophils Percent Auto 53.1 % (45-73); Platelet Count 185 X10*3/uL (160-400); Red Blood Count 3.22 X10*6/uL (4.20-5.50); Red Cell Distribution Width 14.9 % (11.0-16.0); White Blood Count 9.4 X10*3/uL (4.8-10.8)
[2021-06-30 06:08] LABS: Anion Gap 13 (12-20); Blood Urea Nitrogen 8 mg/dL (9-16); Carbon Dioxide 19 mmol/L (22-29); Chloride 112 mmol/L (96-108); Creatinine Clr Calc Pharmacy 101.7; Estimated Glomerular Filt Rate > 60; Glucose Random 142 mg/dL (60-115); Potassium 3.8 mmol/L (3.3-5.1); Sodium 140 mmol/L (135-145)
[2021-06-30 06:10] LABS: Magnesium 1.8 mg/dL (1.6-2.6)
[2021-06-30 06:25] LABS: Glucose, Whole Blood 148 mg/dL (60-115)
[2021-06-30] MEDS: ondansetron HCL 4 MG/2 ML VIAL IVPUSH ×2 (06:38→13:19)
[2021-06-30 07:48] LABS: Glucose, Whole Blood 248 mg/dL (60-115)
[2021-06-30 08:38] VITALS: BP 147/61; PULSE 97; RESP 16; TEMP 36.7; O2SAT 98
[2021-06-30] MEDS: Gabapentin 400 MG CAPSULE PO ×3 (08:38→20:06)
[2021-06-30] MEDS: Omeprazole 20 MG CAPSULE.DR PO ×2 (08:39→20:06)
[2021-06-30] MEDS: ALPRAZolam 0.25 MG TABLET PO ×3 (08:39→20:08)
[2021-06-30] MEDS: Acetaminophen 325 MG TABLET 650 MG PO (08:39)
[2021-06-30] MEDS: Loratadine 10 MG TABLET PO (08:39)
[2021-06-30] MEDS: Topiramate 25 MG TABLET 50 MG PO (08:39)
[2021-06-30] MEDS: Isosorbide Mononitrate 30 MG TAB.ER.24H PO (08:39)
[2021-06-30] MEDS: DULoxetine HCl 20 MG CAPSULE.DR PO ×2 (08:39→20:08)
[2021-06-30] MEDS: Promethazine HCL 25 MG TABLET PO ×3 (08:39→20:08)
[2021-06-30] MEDS: amLODIPine Besylate 5 MG TABLET PO (08:39)
[2021-06-30] MEDS: Metoprolol Succinate ER 100 MG TAB.ER.24H PO ×2 (08:39→20:05)
[2021-06-30] MEDS: Losartan Potassium 50 MG TABLET 100 MG PO (08:39)
--- NOTE | 2021-06-30 09:11 | PC.NURSE ---
Pt resting in hospital bed. VSS. Medicated per MAY. pt c.o nausea and vomiting. Pt dry heaving . Scheduled promethazine given. Pt appears to be resting comfortably at this time. tylenol given for dunaway. Bowel sounds active and audible. Pt c/o abdominal tenderness. Pt up to us the bedside commode with ax1. Call alvarado and belongings within reach.
--- NOTE | 2021-06-30 10:07 | MHC.CM.PN ---
met with pt in ed overflow p[t lives alone she has telemetry tech servceis and a vmna whose name she has forgotten pt is vacc x 3 her telemetry tech will chatterjee sport her vanessa e when dcd she does not want to go to rehab when dcd her md is [facility]
--- NOTE | 2021-06-30 13:24 | MHC.CM.PN ---
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
[2021-06-30] MEDS: Insulin Lispro 100 UNIT/ML 3 ML VIAL SUBCUT ×2 (13:45→21:47)
--- NOTE | 2021-06-30 13:46 | PC.NURSE ---
pt declined lunch , c/o stomach upset, alert, speech clear, nad, poc 306 3 units insulin given after discussing w pt and at pt request
--- NOTE | 2021-06-30 14:44 | P.PNIM_ITS ---
Subjective Subjective Date of Service: 06/30/21 Interval History: cc: ams interval history: vomitting Cardiovascular Cardiovascular: Reports no additional cardiovascular complaints Respiratory Respiratory: Reports no additional respiratory complaints Physical Exam Vital Signs: Vital Signs: Last Vital Signs Temp 98.1 F 06/30/21 08:38 Pulse 97 06/30/21 08:38 Resp 16 06/30/21 08:38 BP 147/61 H 06/30/21 08:38 Pulse Ox 98 06/30/21 08:38 BMI result Body Mass Index 32.9 General: AO X 3, in distress, holding vomit bag Resp: CTA bilateral, no accessory muscles used CVS: S1,S2,RRR GI: soft, non tender, non distended Neuro: motor grossly intact, alert Psych: appropriate affect, appropriate insight right bka Objective Data Active Medications Acetaminophen (Acetaminophen 325 Mg Tablet) 650 mg PO Q6H PRN PRN Reason: Pain, Mild (Pain Scale 1-3) Last Admin: 06/30/21 08:39 Dose: 650 mg Documented by: BRANDT Acetaminophen/Butalbital/Caffeine (Butalb/Acetamin/Caff 50/325/40 Tablet) 1 tab PO TID PRN PRN Reason: migraine Alprazolam (Alprazolam 0.25 Mg Tablet) 0.25 mg PO TID COUNTS INCLUDE 234 BEDS AT THE [facility] Last Admin: 06/30/21 08:39 Dose: 0.25 mg Documented by: BRANDT Amitriptyline HCl (Amitriptyline Hcl 50 Mg Tablet) 50 mg PO BEDTIME COUNTS INCLUDE 234 BEDS AT THE [facility] Amlodipine Besylate (Amlodipine Besylate 5 Mg Tablet) 5 mg PO DAILY COUNTS INCLUDE 234 BEDS AT THE [facility]; Protocol Last Admin: 06/30/21 08:39 Dose: 5 mg Documented by: BRANDT Atorvastatin Calcium (Atorvastatin Calcium 80 Mg Tablet) 80 mg PO BEDTIME COUNTS INCLUDE 234 BEDS AT THE [facility] Dextrose (Dextrose 50 % 25 Gm/50 Ml Syringe) 25 gm IVPUSH Q15M PRN; Protocol PRN Reason: per Hypoglycemia Standing Ord. Diphenoxylate HCl/Atropine (Diphenoxylate/Atrop 2.5/0.025 Tablet) 1 tab PO BID COUNTS INCLUDE 234 BEDS AT THE [facility] Last Admin: 06/30/21 09:05 Dose: Not Given Documented by: BRANDT Non-Admin Reason: Med Not Available Doxycycline Hyclate (Doxycycline Hyclate 100 Mg Tablet) 100 mg PO Q12H COUNTS INCLUDE 234 BEDS AT THE [facility] Last Admin: 06/30/21 08:39 Dose: 100 mg Documented by: BRANDT Duloxetine HCl (Duloxetine Hcl 20 Mg Capsule.) 20 mg PO BID COUNTS INCLUDE 234 BEDS AT THE [facility] Last Admin: 06/30/21 08:39 Dose: 20 mg Documented by: BRANDT Enoxaparin Sodium (Enoxaparin Sodium 40 Mg/0.4 Ml Syringe) 40 mg SUBCUT Q24H COUNTS INCLUDE 234 BEDS AT THE [facility] Last Admin: 06/30/21 00:52 Dose: 40 mg Documented by: ESTEFANI Gabapentin (Gabapentin 400 Mg Capsule) 400 mg PO TID COUNTS INCLUDE 234 BEDS AT THE [facility] Last Admin: 06/30/21 08:38 Dose: 400 mg Documented by: BRANDT Glucose (Glucose Gel 15 Gm Gel..Gram.) 15 gm PO Q15M PRN; Protocol PRN Reason: per Hypoglycemia Standing Ord. Insulin Human Lispro (Insulin Lispro 100 Unit/Ml 3 Ml Vial) 0.1 - 10 unit SUBCUT QIDACHS COUNTS INCLUDE 234 BEDS AT THE [facility]; Protocol Last Admin: 06/30/21 13:45 Dose: 3 unit Documented by: TEENA Isosorbide Mononitrate (Isosorbide Mononitrate 30 Mg Tab.Er.24h) 30 mg PO DAILY COUNTS INCLUDE 234 BEDS AT THE [facility]; Protocol Last Admin: 06/30/21 08:39 Dose: 30 mg Documented by: BRANDT Loratadine (Loratadine 10 Mg Tablet) 10 mg PO DAILY SANTI Last Admin: 06/30/21 08:39 Dose: 10 mg Documented by: BRANDT Losartan Potassium (Losartan Potassium 50 Mg Tablet) 100 mg PO DAILY SANTI; Pro tocol Last Admin: 06/30/21 08:39 Dose: 100 mg Documented by: BRANDT Melatonin (Melatonin 3 Mg Tablet) 6 mg PO BEDTIME SANTI Melatonin (Melatonin 3 Mg Tablet) 6 mg PO BEDTIME PRN PRN Reason: Insomnia Metoprolol Succinate (Metoprolol Succinate Er 100 Mg Tab.Er.24h) 100 mg PO BID COUNTS INCLUDE 234 BEDS AT THE [facility]; Protocol Last Admin: 06/30/21 08:39 Dose: 100 mg Documented by: BRANDT Niacin (Niacin Er 250 Mg Tablet.Er) 1,000 mg PO BEDTIME COUNTS INCLUDE 234 BEDS AT THE [facility] Omeprazole (Omeprazole 20 Mg Capsule.) 20 mg PO BID COUNTS INCLUDE 234 BEDS AT THE [facility] Last Admin: 06/30/21 08:39 Dose: 20 mg Documented by: BRANDT Ondansetron HCl (Ondansetron Hcl 4 Mg/2 Ml Vial) 4 mg IVPUSH Q6H PRN PRN Reason: nausea Last Admin: 06/30/21 13:19 Dose: 4 mg Documented by: TEENA Pharmacy Consult (Consult Rx Perform Med Rec) 1 each MISCELLANE ONCE PRN PRN Reason: Consult order Promethazine HCl (Promethazine Hcl 25 Mg Tablet) 25 mg PO TID COUNTS INCLUDE 234 BEDS AT THE [facility] Last Admin: 06/30/21 08:39 Dose: 25 mg Documented by: BRANDT Senna (Sennosides 8.6 Mg Tablet) 17.2 mg PO BEDTIME PRN PRN Reason: Constipation Sodium Chloride (0.9 % Sodium Chloride Flush 3 Ml Syringe) 3 ml IVFLUSH QSHIFT COUNTS INCLUDE 234 BEDS AT THE [facility] Last Admin: 06/30/21 08:40 Dose: Not Given Documented by: BRANDT Non-Admin Reason: Med Not Available Topiramate (Topiramate 25 Mg Tablet) 50 mg PO DAILY COUNTS INCLUDE 234 BEDS AT THE [facility] Last Admin: 06/30/21 08:39 Dose: 50 mg Documented by: BRANDT Topiramate (Topiramate 100 Mg Tablet) 100 mg PO DAILY@1700 COUNTS INCLUDE 234 BEDS AT THE [facility] Labs CBC & Chem 7: 06/30/21 05:37 06/30/21 05:37 Labs: Laboratory Results - last 24 hr 06/29/21 06/29/21 06/29/21 14:51 15:10 15:48 MCV MCH MCHC RDW Plt Count MPV Immature Gran % (Auto) Neut % (Auto) Lymph % (Auto) Stephens % (Auto) Eos % (Auto) Baso % (Auto) Lymph # (Auto) Stephens # (Auto) Eos # (Auto) Baso # (Auto) Abs Immat Gran (auto) Absolute Neuts (auto) Absolute Nucleated RBC Nucleated RBC % (auto) PT INR APTT Anion Gap Estim Creat Clear Calc Estimated GFR POC Glucose 55 L* 189 H Random Glucose Lactic Acid Calcium Magnesium Total Bilirubin Direct Bilirubin AST ALT Alkaline Phosphatase Troponin I High Sens Total Protein Albumin Urine Color Urine Appearance Urine pH Ur Specific [place] Urine Protein Urine Glucose (UA) Urine Ketones Urine Blood Urine Nitrite Ur Leukocyte Esterase Urine Opiates Screen Urine Fentanyl Screen Ur Barbiturates Screen Ur Phencyclidine Scrn Ur Amphetamines Screen U Benzodiazepines Scrn Urine Cocaine Screen U Marijuana (THC) Screen Ethyl Alcohol < 10 COVID-19 (TA) COVID-19 Clin Com Influenza Type A (TIMOTHY) Influenza Type B (TIMOTHY) Influenza A & B Note 06/29/21 06/29/21 06/29/21 16:01 16:02 16:10 MCV MCH MCHC RDW Plt Count MPV Immature Gran % (Auto) Neut % (Auto) Lymph % (Auto) Stephens % (Auto) Eos % (Auto) Baso % (Auto) Lymph # (Auto) Stephens # (Auto) Eos # (Auto) Baso # (Auto) Abs Immat Gran (auto) Absolute Neuts (auto) Absolute Nucleated RBC Nucleated RBC % (auto) PT 10.6 INR 0.9 APTT 27.3 Anion Gap Estim Creat Clear Calc Estimated GFR POC Glucose 155 H Random Glucose Lactic Acid Calcium Magnesium Total Bilirubin Direct Bilirubin AST ALT Alkaline Phosphatase Troponin I High Sens Total Protein Albumin Urine Color Urine Appearance Urine pH Ur Specific [place] Urine Protein Urine Glucose (UA) Urine Ketones Urine Blood Urine Nitrite Ur Leukocyte Esterase Urine Opiates Screen Urine Fentanyl Screen Ur Barbiturates Screen Ur Phencyclidine Scrn Ur Amphetamines Screen U Benzodiazepines Scrn Urine Cocaine Screen U Marijuana (THC) Screen Ethyl Alcohol COVID-19 (TA) Negative COVID-19 Clin Com See Note Influenza Type A (TIMOTHY) Influenza Type B (TIMOTHY) Influenza A & B Note 06/29/21 06/29/21 06/29/21 16:10 16:10 16:10 MCV MCH MCHC RDW Plt Count MPV Immature Gran % (Auto) Neut % (Auto) Lymph % (Auto) Stephens % (Auto) Eos % (Auto) Baso % (Auto) Lymph # (Auto) Stephens # (Auto) Eos # (Auto) Baso # (Auto) Abs Immat Gran (auto) Absolute Neuts (auto) Absolute Nucleated RBC Nucleated RBC % (auto) PT INR APTT Anion Gap 11 L Estim Creat Clear Calc 90.0 Estimated GFR > 60 POC Glucose Random Glucose 206 H Lactic Acid 2.0 Calcium 9.4 Magnesium 1.4 L* Total Bilirubin 0.2 Direct Bilirubin < 0.2 AST 21 ALT 15 Alkaline Phosphatase 69 D Troponin I High Sens Total Protein 6.0 L Albumin 3.4 L Urine Color Urine Appearance Urine pH Ur Specific [place] Urine Protein Urine Glucose (UA) Urine Ketones Urine Blood Urine Nitrite Ur Leukocyte Esterase Urine Opiates Screen Urine Fentanyl Screen Ur Barbiturates Screen Ur Phencyclidine Scrn Ur Amphetamines Screen U Benzodiazepines Scrn Urine Cocaine Screen U Marijuana (THC) Screen Ethyl Alcohol COVID-19 (TA) COVID-19 Clin Com Influenza Type A (TIMOTHY) Negative Influenza Type B (TIMOTHY) Negative Influenza A & B Note See Note 06/29/21 06/29/21 06/29/21 17:26 17:26 18:36 MCV 96.4 MCH 31.5 MCHC 32.7 RDW 14.6 Plt Count 192 MPV 10.6 Immature Gran % (Auto) 0.6 H Neut % (Auto) 83.0 H Lymph % (Auto) 10.3 L Stephens % (Auto) 5.9 Eos % (Auto) 0.1 Baso % (Auto) 0.1 Lymph # (Auto) 1.8 Stephens # (Auto) 1.1 Eos # (Auto) 0.0 Baso # (Auto) 0.0 Abs Immat Gran (auto) 0.10 H Absolute Neuts (auto) 14.7 H Absolute Nucleated RBC 0.000 Nucleated RBC % (auto) 0.0 PT INR APTT Anion Gap Estim Creat Clear Calc Estimated GFR POC Glucose Random Glucose Lactic Acid Calcium Magnesium Total Bilirubin Direct Bilirubin AST ALT Alkaline Phosphatase Troponin I High Sens 9.9 Total Protein Albumin Urine Color YELLOW Urine Appearance CLEAR Urine pH 6.5 Ur Specific [place] 1.010 Urine Protein NEG Urine Glucose (UA) 100 H Urine Ketones NEG Urine Blood NEG Urine Nitrite NEG Ur Leukocyte Esterase NEG Urine Opiates Screen Urine Fentanyl Screen Ur Barbiturates Screen Ur Phencyclidine Scrn Ur Amphetamines Screen U Benzodiazepines Scrn Urine Cocaine Screen U Marijuana (THC) Screen Ethyl Alcohol COVID-19 (TA) COVID-19 Clin Com Influenza Type A (TIMOTHY) Influenza Type B (TIMOTHY) Influenza A & B Note 06/29/21 06/30/21 06/30/21 18:36 03:38 05:37 MCV 94.4 MCH 32.0 MCHC 33.9 RDW 14.9 Plt Count 185 MPV 10.9 Immature Gran % (Auto) 0.2 Neut % (Auto) 53.1 Lymph % (Auto) 37.7 Stephens % (Auto) 8.3 Eos % (Auto) 0.5 Baso % (Auto) 0.2 Lymph # (Auto) 3.6 Stephens # (Auto) 0.8 Eos # (Auto) 0.1 Baso # (Auto) 0.0 Abs Immat Gran (auto) 0.02 Absolute Neuts (auto) 5.0 Absolute Nucleated RBC 0.000 Nucleated RBC % (auto) 0.0 PT INR APTT Anion Gap Estim Creat Clear Calc Estimated GFR POC Glucose Random Glucose Lactic Acid Calcium Magnesium Total Bilirubin Direct Bilirubin AST ALT Alkaline Phosphatase Troponin I High Sens 11.0 Total Protein Albumin Urine Color Urine Appearance Urine pH Ur Specific [place] Urine Protein Urine Glucose (UA) Urine Ketones Urine Blood Urine Nitrite Ur Leukocyte Esterase Urine Opiates Screen Not Detected Urine Fentanyl Screen Not Detected Ur Barbiturates Screen POSITIVE H Ur Phencyclidine Scrn Not Detected Ur Amphetamines Screen Not Detected U Benzodiazepines Scrn Not Detected Urine Cocaine Screen Not Detected U Marijuana (THC) Screen Not Detected Ethyl Alcohol COVID-19 (TA) COVID-19 Clin Com Influenza Type A (TIMOTHY) Influenza Type B (TIMOTHY) Influenza A & B Note 06/30/21 06/30/21 06/30/21 05:37 05:37 06:21 MCV MCH MCHC RDW Plt Count MPV Immature Gran % (Auto) Neut % (Auto) Lymph % (Auto) Stephens % (Auto) Eos % (Auto) Baso % (Auto) Lymph # (Auto) Stephens # (Auto) Eos # (Auto) Baso # (Auto) Abs Immat Gran (auto) Absolute Neuts (auto) Absolute Nucleated RBC Nucleated RBC % (auto) PT INR APTT Anion Gap 13 Estim Creat Clear Calc 101.7 Estimated GFR > 60 POC Glucose 148 H Random Glucose 142 H Lactic Acid Calcium 9.0 Magnesium 1.8 Total Bilirubin Direct Bilirubin AST ALT Alkaline Phosphatase Troponin I High Sens Total Protein Albumin Urine Color Urine Appearance Urine pH Ur Specific [place] Urine Protein Urine Glucose (UA) Urine Ketones Urine Blood Urine Nitrite Ur Leukocyte Esterase Urine Opiates Screen Urine Fentanyl Screen Ur Barbiturates Screen Ur Phencyclidine Scrn Ur Amphetamines Screen U Benzodiazepines Scrn Urine Cocaine Screen U Marijuana (THC) Screen Ethyl Alcohol COVID-19 (TA) COVID-19 Clin Com Influenza Type A (TIMOTHY) Influenza Type B (TIMOTHY) Influenza A & B Note 06/30/21 07:44 MCV MCH MCHC RDW Plt Count MPV Immature Gran % (Auto) Neut % (Auto) Lymph % (Auto) Stephens % (Auto) Eos % (Auto) Baso % (Auto) Lymph # (Auto) Stephens # (Auto) Eos # (Auto) Baso # (Auto) Abs Immat Gran (auto) Absolute Neuts (auto) Absolute Nucleated RBC Nucleated RBC % (auto) PT INR APTT Anion Gap Estim Creat Clear Calc Estimated GFR POC Glucose 248 H Random Glucose Lactic Acid Calcium Magnesium Total Bilirubin Direct Bilirubin AST ALT Alkaline Phosphatase Troponin I High Sens Total Protein Albumin Urine Color Urine Appearance Urine pH Ur Specific [place] Urine Protein Urine Glucose (UA) Urine Ketones Urine Blood Urine Nitrite Ur Leukocyte Esterase Urine Opiates Screen Urine Fentanyl Screen Ur Barbiturates Screen Ur Phencyclidine Scrn Ur Amphetamines Screen U Benzodiazepines Scrn Urine Cocaine Screen U Marijuana (THC) Screen Ethyl Alcohol COVID-19 (TA) COVID-19 Clin Com Influenza Type A (TIMOTHY) Influenza Type B (TIMOTHY) Influenza A & B Note Assessment and Plan (1) Acute metabolic encephalopathy: Status: Acute Plan 61F presented with ams Acute metabolic encephalopathy due to diabetes with severe hypoglycemia due to poor intake with gastroparesis Glucose and mental status back to baseline. But still unable to maintain p.o. intake due to vomiting from gastroparesis Continue prokinetics, added Zofran support with hydration as needed Monitor electrolytes Hypomagnesemia Replaced Heel ulcer Doxycycline, follow-up id Hypertension Losartan, metoprolol, amlodipine Hyperlipidemia Statin History of CVA Continue statin, not on antiplatelet Mood disorder Continue Topamax, duloxetine, Xanax Chronic pain syndrome Hydromorphone DVT prophylaxis Lovenox Full code reason for continued hospitalization: not maintaining po Quality Stroke Does the patient have a stroke diagnosis?: No VTE Prior VTE?: No VTE Risk Level:: Medical - moderate - high VTE Device Contraindication: Treatment Not Indicated VTE Drug Contraindication: N/A - Med Ordered
--- NOTE | 2021-06-30 16:30 | P.CNID_ITS ---
History of Present Illness Data of Consult Service Date: 06/30/21 Requesting physician: Bereket Blankenship Primary Care Provider: Unknown Physician HPI Reason for consult: diabetic foot infection She presents to hospital with unresponsiveness and low glucose. She is found to have left heel ulcer. She has right BKA Ulcer is about 4 cm Review of Systems Review of Systems: Yes all other systems are reviewed and are negative PMFSH Past Medical History Medical History (Updated 06/30/21 @ 16:34 by Beba Garcia MD) Anxiety Below knee amputation CAD (coronary artery disease) Cholelithiasis Chronic pain syndrome CVA (cerebral vascular accident) Delirium due to another medical condition Depression Diabetic foot ulcer Diabetic neuropathy associated with diabetes mellitus due to underlying condition Encephalopathy acute Gastroparesis History of gastrostomy tube placement History of peptic ulcer disease HTN (hypertension) Hyperglycemia Hypotonic neurogenic bladder IDDM (insulin dependent diabetes mellitus) Liver lesion Myocardial infarction Wheelchair bound Family History Family History Father Coronary arteriosclerosis Surgical History Surgical History History of back surgery Hx of BKA Social History Social History Household Members: Unknown / Unable to assess Housing: Unknown / Unable to assess Are you a primary skin care technician to a significant other at home: No Do you presently have visiting nurse or other home services: Yes Unable to assess alcohol history related to: Unable to respond Alcohol intake: never Patient Tobacco Use Status: Tobacco use Unknown Second Hand Smoke Exposure: No Advance Directives: Yes Advance Directives on File: Yes Advance Directives Date on File: 05/12/20 service: No Current occupational status: unemployed and disabled Meds Allergies Allergy/AdvReac Type Severity Reaction Status Date / Time Penicillins [PENICILLINS] Allergy Mild HIVES Verified 05/25/20 04:33 clarithromycin [From Biaxin] Allergy Unknown HIVES Verified 05/25/20 04:33 penicillin V Allergy Unknown rash, Verified 05/25/20 04:33 throat tight bioxin Allergy Unknown Unknown Uncoded 05/25/20 04:33 penicillin Allergy Unknown Unknown Uncoded 05/25/20 04:33 Active Medications: Current Medications Acetaminophen (Acetaminophen 325 Mg Tablet) 650 mg PO Q6H PRN PRN Reason: Pain, Mild (Pain Scale 1-3) Last Admin: 06/30/21 08:39 Dose: 650 mg Documented by: Acetaminophen/Butalbital/Caffeine (Butalb/Acetamin/Caff 50/325/40 Tablet) 1 tab PO TID PRN PRN Reason: migraine Alprazolam (Alprazolam 0.25 Mg Tablet) 0.25 mg PO TID [facility] Last Admin: 06/30/21 15:26 Dose: 0.25 mg Documented by: Amitriptyline HCl (Amitriptyline Hcl 50 Mg Tablet) 50 mg PO BEDTIME [facility] Amlodipine Besylate (Amlodipine Besylate 5 Mg Tablet) 5 mg PO DAILY [facility]; Protocol Last Admin: 06/30/21 08:39 Dose: 5 mg Documented by: Atorvastatin Calcium (Atorvastatin Calcium 80 Mg Tablet) 80 mg PO BEDTIME [facility] Dextrose (Dextrose 50 % 25 Gm/50 Ml Syringe) 25 gm IVPUSH Q15M PRN; Protocol PRN Reason: per Hypoglycemia Standing Ord. Diphenoxylate HCl/Atropine (Diphenoxylate/Atrop 2.5/0.025 Tablet) 1 tab PO BID [facility] Last Admin: 06/30/21 09:05 Dose: Not Given Documented by: Duloxetine HCl (Duloxetine Hcl 20 Mg Capsule.Dr) 20 mg PO BID [facility] Last Admin: 06/30/21 08:39 Dose: 20 mg Documented by: Enoxaparin Sodium (Enoxaparin Sodium 40 Mg/0.4 Ml Syringe) 40 mg SUBCUT Q24H [facility] Last Admin: 06/30/21 00:52 Dose: 40 mg Documented by: Gabapentin (Gabapentin 400 Mg Capsule) 400 mg PO TID [facility] Last Admin: 06/30/21 15:26 Dose: 400 mg Documented by: Glucose (Glucose Gel 15 Gm Gel..Gram.) 15 gm PO Q15M PRN; Protocol PRN Reason: per Hypoglycemia Standing Ord. Insulin Human Lispro (Insulin Lispro 100 Unit/Ml 3 Ml Vial) 0.1 - 10 unit SUBCUT QIDACHS [facility]; Protocol Last Admin: 06/30/21 13:45 Dose: 3 unit Documented by: Isosorbide Mononitrate (Isosorbide Mononitrate 30 Mg Tab.Er.24h) 30 mg PO DAILY [facility]; Protocol Last Admin: 06/30/21 08:39 Dose: 30 mg Documented by: Loratadine (Loratadine 10 Mg Tablet) 10 mg PO DAILY [facility] Last Admin: 06/30/21 08:39 Dose: 10 mg Documented by: Losartan Potassium (Losartan Potassium 50 Mg Tablet) 100 mg PO DAILY [facility]; Protocol Last Admin: 06/30/21 08:39 Dose: 100 mg Documented by: Melatonin (Melatonin 3 Mg Tablet) 6 mg PO BEDTIME [facility] Melatonin (Melatonin 3 Mg Tablet) 6 mg PO BEDTIME PRN PRN Reason: Insomnia Metoprolol Succinate (Metoprolol Succinate Er 100 Mg Tab.Er.24h) 100 mg PO BID [facility]; Protocol Last Admin: 06/30/21 08:39 Dose: 100 mg Documented by: Niacin (Niacin Er 250 Mg Tablet.Er) 1,000 mg PO BEDTIME [facility] Omeprazole (Omeprazole 20 Mg Capsule.Dr) 20 mg PO BID [facility] Last Admin: 06/30/21 08:39 Dose: 20 mg Documented by: Ondansetron HCl (Ondansetron Hcl 4 Mg/2 Ml Vial) 4 mg IVPUSH Q6H PRN PRN Reason: nausea Last Admin: 06/30/21 13:19 Dose: 4 mg Documented by: Pharmacy Consult (Consult Rx Perform Med Rec) 1 each MISCELLANE ONCE PRN PRN Reason: Consult order Promethazine HCl (Promethazine Hcl 25 Mg Tablet) 25 mg PO TID [facility] Last Admin: 06/30/21 15:26 Dose: 25 mg Documented by: Senna (Sennosides 8.6 Mg Tablet) 17.2 mg PO BEDTIME PRN PRN Reason: Constipation Sodium Chloride (0.9 % Sodium Chloride Flush 3 Ml Syringe) 3 ml IVFLUSH QSHIFT [facility] Last Admin: 06/30/21 15:27 Dose: Not Given Documented by: Topiramate (Topiramate 25 Mg Tablet) 50 mg PO DAILY [facility] Last Admin: 06/30/21 08:39 Dose: 50 mg Documented by: Topiramate (Topiramate 100 Mg Tablet) 100 mg PO DAILY@1700 [facility] Home Medications Medication Instructions Recorded Confirmed Last Taken Type promethazine 25 mg tablet 25 mg PO TID 04/10/20 06/29/21 01/28/21 History amitriptyline 50 mg tablet 50 mg PO BEDTIME 05/12/20 06/29/21 01/28/21 History atorvastatin 80 mg tablet 80 mg PO BEDTIME 05/12/20 06/29/21 01/28/21 History insulin regular hum U-500 conc 500 30 unit SUBCUT QAM 05/12/20 06/29/21 01/29/21 History unit/mL subcutaneous soln (Humulin R U-500 (Concentrated) Insulin) isosorbide mononitrate 30 mg 30 mg PO DAILY 05/12/20 06/29/21 01/29/21 History tablet,extended release 24 hr losartan 100 mg tablet 100 mg PO DAILY 05/12/20 06/29/21 01/29/21 History metoprolol succinate 100 mg 100 mg PO BID 05/12/20 06/29/21 01/29/21 History tablet,extended release 24 hr niacin 1,000 mg tablet,extended 1,000 mg PO BEDTIME 05/12/20 06/29/21 01/28/21 History release 24 hr omeprazole 20 mg capsule,delayed 20 mg PO BID 05/12/20 06/29/21 01/27/21 History release topiramate 100 mg tablet 100 mg PO DAILY@1700 05/12/20 06/29/21 01/29/21 History acetaminophen 325 mg tablet 650 mg PO Q6H PRN 06/29/21 06/29/21 Unknown History alprazolam 0.25 mg tablet (Xanax) 1 tab PO TID 06/29/21 06/29/21 Unknown History amlodipine 5 mg tablet 5 mg PO DAILY 06/29/21 06/29/21 Unknown History [id number] 1 cap PO TID PRN 06/29/21 06/29/21 Unknown H istory 50 mg-300 mg-40 mg capsule (Fioricet) diphenoxylate-atropine 2.5 1 tab PO BID 06/29/21 06/29/21 Unknown History mg-0.025 mg tablet (Lomotil) duloxetine 20 mg capsule,delayed 20 mg PO BID 06/29/21 06/29/21 Unknown History release ergocalciferol (vitamin D2) 1,000 5 tab PO MO 06/29/21 06/29/21 Unknown History unit tablet gabapentin 400 mg capsule 400 mg PO TID 06/29/21 06/29/21 Unknown History hydromorphone 2 mg tablet 1 tab PO DAILY PRN 06/29/21 06/29/21 Unknown History (Dilaudid) loratadine 10 mg tablet 10 mg PO DAILY 06/29/21 06/29/21 Unknown History metformin 500 mg tablet,extended 1,000 mg PO DAILY 06/29/21 06/29/21 Unknown History release 24 hr topiramate 50 mg tablet 50 mg PO DAILY 06/29/21 06/29/21 Unknown History Physical Exam Vital Signs: Vital Signs: Last Vital Signs Temp 98.1 F 06/30/21 08:38 Pulse 97 06/30/21 08:38 Resp 16 06/30/21 08:38 BP 147/61 H 06/30/21 08:38 Pulse Ox 98 06/30/21 08:38 BMI result Body Mass Index 32.9 Const: General: cooperative Eyes: General: appearance normal, both eyes and all related structures Pupils: Equal, round and reactive pupils present Resp: Effort & Inspection: normal respiratory effort Cardio: Rate: regular rate Rhythm: regular rhythm Skin: General skin exam: no rashes or lesions noted Neuro: Other: neuropathy Cranial nerves: Yes Equal, round and reactive pupils present Extrem: Other: left heel ulcer Results Labs CBC & Chem 7: 06/30/21 05:37 06/30/21 05:37 Labs: Short CBC 06/29/21 06/30/21 Range/Units 17:26 05:37 WBC 17.7 H 9.4 (4.8-10.8) X10*3/uL Hgb 10.5 L 10.3 L (12.0-16.0) g/dl Hct 32.1 L 30.4 L (37.0-47.0) % Plt Count 192 185 (160-400) X10*3/uL BMP 06/29/21 06/30/21 16:10 05:37 Sodium 140 140 Potassium 3.7 3.8 Chloride 111 H 112 H Carbon Dioxide 22 19 L BUN 9 8 L Creatinine 0.70 0.62 Calcium 9.4 9.0 Liver Function 06/29/21 Range/Units 16:10 Total Bilirubin 0.2 (0.0-1.0) mg/dL Direct Bilirubin < 0.2 (0.0-0.5) mg/dL AST 21 (5-31) U/L ALT 15 (0-31) U/L Alkaline Phosphatase 69 D (39-117) U/L Albumin 3.4 L (3.5-5.0) g/dL Urine 06/29/21 Range/Units 18:36 Urine Color YELLOW Urine Appearance CLEAR Urine pH 6.5 (5.0-8.0) Ur Specific [place] 1.010 (1.005-1.025) Urine Protein NEG (NEG-TRACE) MG/DL Urine Glucose (UA) 100 H (NEG) MG/DL Assessment and Plan (1) Cellulitis: Status: Acute (2) Diabetic foot ulcer: Status: Acute She has ulcer need to r/o osteomyelitis Plan Check MRI or CT foot Daptomycin for now,staph May benefit vascular eval
[2021-06-30 18:17] LABS: Glucose, Whole Blood 307 mg/dL (60-115)
--- NOTE | 2021-06-30 18:27 | PC.NURSE ---
pt refused dinner insulin coverage. educated on importance of insulin administration. Pt continued to decline.
[2021-06-30 18:30] LABS: Glucose, Whole Blood 208 mg/dL (60-115)
[2021-06-30] MEDS: Topiramate 100 MG TABLET PO (18:43)
[2021-06-30 19:51] LABS: Glucose, Whole Blood 242 mg/dL (60-115)
[2021-06-30] MEDS: DAPTOmycin 500 MG in 0.9 % Sodium Chloride 50 ML 100 MG IV (20:01)
[2021-06-30] MEDS: Melatonin 3 MG TABLET 6 MG PO (20:07)
[2021-06-30] MEDS: Atorvastatin Calcium 80 MG TABLET PO (20:07)
[2021-06-30] MEDS: Amitriptyline HCl 50 MG TABLET PO (20:07)
[2021-06-30] MEDS: Butalb/Acetamin/Caff 50/325/40 TABLET 1 TAB PO (20:13)
[2021-06-30 20:37] VITALS: BP 144/51; PULSE 73; RESP 13; TEMP 36.8; O2SAT 95
[2021-06-30 21:23] LABS: Glucose, Whole Blood 211 mg/dL (60-115)
[2021-06-30 23:42] VITALS: BP 117/48; PULSE 68; RESP 16; TEMP 36.1; O2SAT 98
[2021-07-01] VITALS: BP 121/56; PULSE 68; RESP 19; TEMP 36.7; O2SAT 96
[2021-07-01] MEDS: 0.9 % Sodium Chloride Flush 3 ML SYRINGE IVFLUSH ×4 (00:38→19:24)
[2021-07-01 02:51] VITALS: BMI 31.8
[2021-07-01 03:24] VITALS: BP 112/48; PULSE 58; RESP 19; TEMP 36.4; O2SAT 97
[2021-07-01 06:14] LABS: Hematocrit 30.1 % (37.0-47.0); Hemoglobin 9.9 g/dl (12.0-16.0); Mean Corpuscular HGB Conc 32.9 g/dl (31.0-35.0); Mean Corpuscular Hemoglobin 31.8 pg (27.0-33.0); Mean Corpuscular Volume 96.8 fL (80.0-98.0); Mean Platelet Volume 11.3 fL (9.4-12.3); Platelet Count 182 X10*3/uL (160-400); Red Blood Count 3.11 X10*6/uL (4.20-5.50); White Blood Count 8.9 X10*3/uL (4.8-10.8)
[2021-07-01 06:33] LABS: Anion Gap 15 (12-20); Blood Urea Nitrogen 13 mg/dL (9-16); Calcium 8.8 mg/dL (8.4-10.2); Carbon Dioxide 19 mmol/L (22-29); Chloride 110 mmol/L (96-108); Creatinine Clr Calc Pharmacy 82.6; Estimated Glomerular Filt Rate > 60; Glucose Fasting 175 mg/dL (60-99); Potassium 4.2 mmol/L (3.3-5.1); Sodium 140 mmol/L (135-145)
[2021-07-01 07:33] VITALS: BP 140/57; PULSE 67; RESP 18; TEMP 36.3; O2SAT 98
[2021-07-01 07:43] LABS: Glucose, Whole Blood 184 mg/dL (60-115)
[2021-07-01] MEDS: Promethazine HCL 25 MG TABLET PO ×3 (08:08→20:23)
[2021-07-01] MEDS: Butalb/Acetamin/Caff 50/325/40 TABLET 1 TAB PO ×2 (08:09→15:59)
[2021-07-01] MEDS: Omeprazole 20 MG CAPSULE.DR PO ×2 (08:10→20:23)
[2021-07-01] MEDS: Metoprolol Succinate ER 100 MG TAB.ER.24H PO ×2 (08:10→20:23)
[2021-07-01] MEDS: amLODIPine Besylate 5 MG TABLET PO (08:10)
[2021-07-01] MEDS: Loratadine 10 MG TABLET PO (08:10)
[2021-07-01] MEDS: Losartan Potassium 50 MG TABLET 100 MG PO (08:10)
[2021-07-01] MEDS: Topiramate 25 MG TABLET 50 MG PO (08:11)
[2021-07-01] MEDS: Gabapentin 400 MG CAPSULE PO ×3 (08:11→20:23)
[2021-07-01] MEDS: Isosorbide Mononitrate 30 MG TAB.ER.24H PO (08:11)
[2021-07-01] MEDS: DULoxetine HCl 20 MG CAPSULE.DR PO ×2 (08:20→20:23)
--- NOTE | 2021-07-01 10:23 | HO.PM.IMPN ---
Subjective Subjective Date of Service: 07/01/21 Interval History: cc: ams interval history: nausea improved Cardiovascular Cardiovascular: Reports no additional cardiovascular complaints Respiratory Respiratory: Reports no additional respiratory complaints Physical Exam Vital Signs: Vital Signs: Last Vital Signs Temp 97.4 F 07/01/21 07:33 Pulse 67 07/01/21 07:33 Resp 18 07/01/21 07:33 BP 140/57 H 07/01/21 07:33 Pulse Ox 98 07/01/21 07:33 BMI result Body Mass Index 31.8 General: AO X 3, no acute distress Resp: CTA bilateral, no accessory muscles used CVS: S1,S2,RRR GI: soft, non tender, non distended Neuro: motor grossly intact, alert Psych: appropriate affect, appropriate insight left heel ulcer Objective Data Active Medications Acetaminophen (Acetaminophen 325 Mg Tablet) 650 mg PO Q6H PRN PRN Reason: Pain, Mild (Pain Scale 1-3) Last Admin: 06/30/21 08:39 Dose: 650 mg Documented by: BRANDT Acetaminophen/Butalbital/Caffeine (Butalb/Acetamin/Caff 50/325/40 Tablet) 1 tab PO TID PRN PRN Reason: migraine Last Admin: 07/01/21 08:09 Dose: 1 tab Documented by: TASHA Alprazolam (Alprazolam 0.25 Mg Tablet) 0.25 mg PO TID [facility] Last Admin: 06/30/21 20:08 Dose: 0.25 mg Documented by: MELVIN Amitriptyline HCl (Amitriptyline Hcl 50 Mg Tablet) 50 mg PO BEDTIME [facility] Last Admin: 06/30/21 20:07 Dose: 50 mg Documented by: MELVIN Amlodipine Besylate (Amlodipine Besylate 5 Mg Tablet) 5 mg PO DAILY [facility]; Protocol Last Admin: 07/01/21 08:10 Dose: 5 mg Documented by: TASHA Atorvastatin Calcium (Atorvastatin Calcium 80 Mg Tablet) 80 mg PO BEDTIME [facility] Last Admin: 06/30/21 20:07 Dose: 80 mg Documented by: MELVIN Dextrose (Dextrose 50 % 25 Gm/50 Ml Syringe) 25 gm IVPUSH Q15M PRN; Protocol PRN Reason: per Hypoglycemia Standing Ord. Diphenoxylate HCl/Atropine (Diphenoxylate/Atrop 2.5/0.025 Tablet) 1 tab PO BID [facility] Last Admin: 07/01/21 08:21 Dose: Not Given Documented by: TASHA Non-Admin Reason: Patient Refused Duloxetine HCl (Duloxetine Hcl 20 Mg Capsule.Dr) 20 mg PO BID [facility] Last Admin: 07/01/21 08:20 Dose: 20 mg Documented by: TASHA Enoxaparin Sodium (Enoxaparin Sodium 40 Mg/0.4 Ml Syringe) 40 mg SUBCUT Q24H [facility] Last Admin: 06/30/21 23:16 Dose: 40 mg Documented by: MELVIN Gabapentin (Gabapentin 400 Mg Capsule) 400 mg PO TID [facility] Last Admin: 07/01/21 08:11 Dose: 400 mg Documented by: TASHA Glucose (Glucose Gel 15 Gm Gel..Gram.) 15 gm PO Q15M PRN; Protocol PRN Reason: per Hypoglycemia Standing Ord. Daptomycin 500 mg/ Sodium (Chloride) 60 mls @ 100 mls/hr IV Q24H [facility] Last Infusion: 06/30/21 20:37 Dose: 0 mls/hr Documented by: MELVIN Insulin Human Lispro (Insulin Lispro 100 Unit/Ml 3 Ml Vial) 0.1 - 10 unit SUBCUT QIDACHS [facility]; Protocol Last Admin: 07/01/21 08:26 Dose: Not Given Documented by: TASHA Non-Admin Reason: Patient Refused Isosorbide Mononitrate (Isosorbide Mononitrate 30 Mg Tab.Er.24h) 30 mg PO DAILY [facility]; Protocol Last Admin: 07/01/21 08:11 Dose: 30 mg Documented by: TASHA Loratadine (Loratadine 10 Mg Tablet) 10 mg PO DAILY [facility] Last Admin: 07/01/21 08:10 Dose: 10 mg Documented by: TASHA Losartan Potassium (Losartan Potassium 50 Mg Tablet) 100 mg PO DAILY [facility]; Protocol Last Admin: 07/01/21 08:10 Dose: 100 mg Documented by: TASHA Melatonin (Melatonin 3 Mg Tablet) 6 mg PO BEDTIME [facility] Last Admin: 06/30/21 20:07 Dose: 6 mg Documented by: MELVIN Melatonin (Melatonin 3 Mg Tablet) 6 mg PO BEDTIME PRN PRN Reason: Insomnia Metoprolol Succinate (Metoprolol Succinate Er 100 Mg Tab.Er.24h) 100 mg PO BID [facility]; Protocol Last Admin: 07/01/21 08:10 Dose: 100 mg Documented by: TASHA Niacin (Niacin Er 250 Mg Tablet.Er) 1,000 mg PO BEDTIME [facility] Last Admin: 06/30/21 20:09 Dose: 1,000 mg Documented by: MELVIN Omeprazole (Omeprazole 20 Mg Capsule.Dr) 20 mg PO BID [facility] Last Admin: 07/01/21 08:10 Dose: 20 mg Documented by: TASHA Ondansetron HCl (Ondansetron Hcl 4 Mg/2 Ml Vial) 4 mg IVPUSH Q6H PRN PRN Reason: nausea Last Admin: 06/30/21 13:19 Dose: 4 mg Documented by: TEENA Pharmacy Consult (Consult Rx Perform Med Rec) 1 each MISCELLANE ONCE PRN PRN Reason: Consult order Promethazine HCl (Promethazine Hcl 25 Mg Tablet) 25 mg PO TID [facility] Last Admin: 07/01/21 08:08 Dose: 25 mg Documented by: TASHA Senna (Sennosides 8.6 Mg Tablet) 17.2 mg PO BEDTIME PRN PRN Reason: Constipation Sodium Chloride (0.9 % Sodium Chloride Flush 3 Ml Syringe) 3 ml IVFLUSH QSHIFT [facility] Last Admin: 07/01/21 07:31 Dose: 3 ml Documented by: DON Topiramate (Topiramate 25 Mg Tablet) 50 mg PO DAILY [facility] Last Admin: 07/01/21 08:11 Dose: 50 mg Documented by: TASHA Topiramate (Topiramate 100 Mg Tablet) 100 mg PO DAILY@1700 [facility] Last Admin: 06/30/21 18:43 Dose: 100 mg Documented by: BRANDT Labs CBC & Chem 7: 07/01/21 05:35 07/01/21 05:35 Labs: Laboratory Results - last 24 hr 06/30/21 06/30/21 06/30/21 13:39 18:25 19:47 MCV MCH MCHC RDW Plt Count MPV Absolute Nucleated RBC Nucleated RBC % (auto) Anion Gap Estim Creat Clear Calc Estimated GFR POC Glucose 307 H 208 H 242 H Fasting Glucose Calcium Magnesium 06/30/21 07/01/21 07/01/21 21:19 05:35 05:35 MCV 96.8 MCH 31.8 MCHC 32.9 RDW 15.0 Plt Count 182 MPV 11.3 Absolute Nucleated RBC 0.000 Nucleated RBC % (auto) 0.0 Anion Gap 15 Estim Creat Clear Calc 82.6 Estimated GFR > 60 POC Glucose 211 H Fasting Glucose 175 H Calcium 8.8 Magnesium 2.0 07/01/21 07:38 MCV MCH MCHC RDW Plt Count MPV Absolute Nucleated RBC Nucleated RBC % (auto) Anion Gap Estim Creat Clear Calc Estimated GFR POC Glucose 184 H Fasting Glucose Calcium Magnesium Microbiology Microbiology Results: Microbiology 06/29/21 16:10 Blood Culture - Preliminary Blood - Venous No growth after 24 hours. 06/29/21 15:48 Blood Culture - Preliminary Blood - Venous No growth after 24 hours. Assessment and Plan (1) Acute metabolic encephalopathy: Status: Acute Plan 61F presented with ams Acute metabolic encephalopathy due to diabetes with severe hypoglycemia due to poor intake with gastroparesis Glucose and mental status back to baseline. po intake improved Continue prokinetics, added Zofran support with hydration as needed Monitor electrolytes Hypomagnesemia Replaced Heel ulcer ID appreciated, changed to dapto, follow up vascular, mri Hypertension Losartan, metoprolol, amlodipine Hyperlipidemia Statin History of CVA Continue statin, not on antiplatelet Mood disorder Continue Topamax, duloxetine, Xanax Chronic pain syndrome Hydromorphone DVT prophylaxis Lovenox Full code reason for continued hospitalization: iv abx, work up to rule out OM Quality Stroke Does the patient have a stroke diagnosis?: No VTE Prior VTE?: No VTE Risk Level:: Medical - moderate - high VTE Device Contraindication: Treatment Not Indicated VTE Drug Contraindication: N/A - Med Ordered
[2021-07-01 11:36] LABS: Glucose, Whole Blood 305 mg/dL (60-115)
[2021-07-01 11:37] VITALS: BP 116/56; PULSE 70; RESP 17; TEMP 36.9; O2SAT 97
[2021-07-01] MEDS: Insulin Lispro 100 UNIT/ML 3 ML VIAL SUBCUT ×3 (11:49→21:05)
[2021-07-01 12:19] VITALS: BMI 31.8
--- NOTE | 2021-07-01 12:23 | MHC.CLN ---
RE: CONSULT PT WITH INCREASED NUTRITION RISK R/T PRESSURE INJURY PT ALSO REFUSED X 2 MEALS 06/30 DIET RX: 2GM NA -RECOMMEND 2000DM 2GM NA DIET R/T DM AND CAD WILL START ENSURE MAX TO INCREASE KCALS AND PROMOTE WOUND HEALING SUPP TO PROVIDE 150KCALS, 30G PROTEIN PER 110Z CARTON MONITOR PO INTAKE CLOSELY SEE ALSO FULL CLINICAL NUTRITION ASSESSMENT
--- NOTE | 2021-07-01 13:44 | PM.CNGS ---
History of Present Illness Consult details Consult date: 07/01/21 Reason for consult: wound care Narrative: Very pleasant 61-year-old female a history of diabetes who actually underwent a right below-knee amputation at [facility]. She reports that this was done nearly 10 years prior. She has had 3 subsequent revisions of that. She is not using a prosthetic due to malformation of that stump. Of note her left leg has been critical as it is point transfer and loading. She has had this nonhealing left medial heel ulcer. This has been treated with Hydrea fair blue. [facility] She now presents to us for vascular evaluation. Review of Systems Review of Systems: Yes all other systems are reviewed and are negative Constitutional: Constitutional: Reports no additional constitutional complaints ENT: Reports Normal hearing present Cardiovascular: Cardiovascular: Denies chest pain, Denies chest pain at rest, Denies chest pain with activity and Denies pedal edema Respiratory: Respiratory: Denies cough Gastrointestinal: Gastrointestinal: Denies abdominal pain Musculoskeletal: Musculoskeletal: Denies abnormal gait, Denies muscle cramps and Denies radiating pain into limb Integumentary/Breasts: Skin/Breast: Denies skin ulcer and Denies wounds Neurologic: Reports Normal hearing present and Denies abnormal gait Psychiatric: Psychiatric: Reports no additional psychiatric complaints [facility] Past Medical History Medical History (Updated 06/30/21 @ 16:34 by Beba Garcia MD) Anxiety Below knee amputation CAD (coronary artery disease) Cholelithiasis Chronic pain syndrome CVA (cerebral vascular accident) Delirium due to another medical condition Depression Diabetic foot ulcer Diabetic neuropathy associated with diabetes mellitus due to underlying condition Encephalopathy acute Gastroparesis History of gastrostomy tube placement History of peptic ulcer disease HTN (hypertension) Hyperglycemia Hypotonic neurogenic bladder IDDM (insulin dependent diabetes mellitus) Liver lesion Myocardial infarction Wheelchair bound Family History Family History Father Coronary arteriosclerosis Surgical History Surgical History History of back surgery Hx of BKA Social History Social History Household Members: None Housing: Apartment Are you a primary healthcare administration intern to a significant other at home: No Do you presently have visiting nurse or other home services: Yes Unable to assess alcohol history related to: Unable to respond Alcohol intake: never Patient Tobacco Use Status: Tobacco use Unknown Second Hand Smoke Exposure: No Advance Directives Date on File: 05/12/20 service: No Current occupational status: unemployed and disabled Meds Allergies Allergy/AdvReac Type Severity Reaction Status Date / Time Penicillins [PENICILLINS] Allergy Mild HIVES Verified 05/25/20 04:33 clarithromycin [From Biaxin] Allergy Unknown HIVES Verified 05/25/20 04:33 penicillin V Allergy Unknown rash, Verified 05/25/20 04:33 throat tight bioxin Allergy Unknown Unknown Uncoded 05/25/20 04:33 penicillin Allergy Unknown Unknown Uncoded 05/25/20 04:33 Active Medications: Current Medications Acetaminophen (Acetaminophen 325 Mg Tablet) 650 mg PO Q6H PRN PRN Reason: Pain, Mild (Pain Scale 1-3) Last Admin: 06/30/21 08:39 Dose: 650 mg Documented by: Acetaminophen/Butalbital/Caffeine (Butalb/Acetamin/Caff 50/325/40 Tablet) 1 tab PO TID PRN PRN Reason: migraine Last Admin: 07/01/21 08:09 Dose: 1 tab Documented by: Alprazolam (Alprazolam 0.25 Mg Tablet) 0.25 mg PO TID [facility] Last Admin: 07/01/21 11:50 Dose: Not Given Documented by: Amitriptyline HCl (Amitriptyline Hcl 50 Mg Tablet) 50 mg PO BEDTIME [facility] Last Admin: 06/30/21 20:07 Dose: 50 mg Documented by: Amlodipine Besylate (Amlodipine Besylate 5 Mg Tablet) 5 mg PO DAILY SANTI; Protocol Last Admin: 07/01/21 08:10 Dose: 5 mg Documented by: Atorvastatin Calcium (Atorvastatin Calcium 80 Mg Tablet) 80 mg PO BEDTIME [facility] Last Admin: 06/30/21 20:07 Dose: 80 mg Documented by: Dextrose (Dextrose 50 % 25 Gm/50 Ml Syringe) 25 gm IVPUSH Q15M PRN; Protocol PRN Reason: per Hypoglycemia Standing Ord. Diphenoxylate HCl/Atropine (Diphenoxylate/Atrop 2.5/0.025 Tablet) 1 tab PO BID [facility] Last Admin: 07/01/21 08:21 Dose: Not Given Documented by: Duloxetine HCl (Duloxetine Hcl 20 Mg Capsule.) 20 mg PO BID [facility] Last Admin: 07/01/21 08:20 Dose: 20 mg Documented by: Enoxaparin Sodium (Enoxaparin Sodium 40 Mg/0.4 Ml Syringe) 40 mg SUBCUT Q24H [facility] Last Admin: 06/30/21 23:16 Dose: 40 mg Documented by: Gabapentin (Gabapentin 400 Mg Capsule) 400 mg PO TID [facility] Last Admin: 07/01/21 08:11 Dose: 400 mg Documented by: Glucose (Glucose Gel 15 Gm Gel..Gram.) 15 gm PO Q15M PRN; Protocol PRN Reason: per Hypoglycemia Standing Ord. Daptomycin 500 mg/ Sodium (Chloride) 60 mls @ 100 mls/hr IV Q24H [facility] Last Infusion: 06/30/21 20:37 Dose: Infused Documented by: Insulin Human Lispro (Insulin Lispro 100 Unit/Ml 3 Ml Vial) 0.1 - 10 unit SUBCUT QIDACHS [facility]; Protocol Last Admin: 07/01/21 11:49 Dose: 8 unit Documented by: Isosorbide Mononitrate (Isosorbide Mononitrate 30 Mg Tab.Er.24h) 30 mg PO DAILY [facility]; Protocol Last Admin: 07/01/21 08:11 Dose: 30 mg Documented by: Loratadine (Loratadine 10 Mg Tablet) 10 mg PO DAILY [facility] Last Admin: 07/01/21 08:10 Dose: 10 mg Documented by: Losartan Potassium (Losartan Potassium 50 Mg Tablet) 100 mg PO DAILY [facility]; Protocol Last Admin: 07/01/21 08:10 Dose: 100 mg Documented by: Melatonin (Melatonin 3 Mg Tablet) 6 mg PO BEDTIME [facility] Last Admin: 06/30/21 20:07 Dose: 6 mg Documented by: Melatonin (Melatonin 3 Mg Tablet) 6 mg PO BEDTIME PRN PRN Reason: Insomnia Metoprolol Succinate (Metoprolol Succinate Er 100 Mg Tab.Er.24h) 100 mg PO BID [facility]; Protocol Last Admin: 07/01/21 08:10 Dose: 100 mg Documented by: Niacin (Niacin Er 250 Mg Tablet.Er) 1,000 mg PO BEDTIME [facility] Last Admin: 06/30/21 20:09 Dose: 1,000 mg Documented by: Omeprazole (Omeprazole 20 Mg Capsule.) 20 mg PO BID [facility] Last Admin: 07/01/21 08:10 Dose: 20 mg Documented by: Ondansetron HCl (Ondansetron Hcl 4 Mg/2 Ml Vial) 4 mg IVPUSH Q6H PRN PRN Reason: nausea Last Admin: 06/30/21 13:19 Dose: 4 mg Documented by: Pharmacy Consult (Consult Rx Perform Med Rec) 1 each MISCELLANE ONCE PRN PRN Reason: Consult order Promethazine HCl (Promethazine Hcl 25 Mg Tablet) 25 mg PO TID [facility] Last Admin: 07/01/21 08:08 Dose: 25 mg Documented by: Senna (Sennosides 8.6 Mg Tablet) 17.2 mg PO BEDTIME PRN PRN Reason: Constipation Sodium Chloride (0.9 % Sodium Chloride Flush 3 Ml Syringe) 3 ml IVFLUSH QSHIFT [facility] Last Admin: 07/01/21 07:31 Dose: 3 ml Documented by: Topiramate (Topiramate 25 Mg Tablet) 50 mg PO DAILY [facility] Last Admin: 07/01/21 08:11 Dose: 50 mg Documented by: Topiramate (Topiramate 100 Mg Tablet) 100 mg PO DAILY@1700 [facility] Last Admin: 06/30/21 18:43 Dose: 100 mg Documented by: Home Medications Medication Instructions Recorded Confirmed Last Taken Type promethazine 25 mg tablet 25 mg PO TID 04/10/20 06/29/21 01/28/21 History amitriptyline 50 mg tablet 50 mg PO BEDTIME 05/12/20 06/29/21 01/28/21 History atorvastatin 80 mg tablet 80 mg PO BEDTIME 05/12/20 06/29/21 01/28/21 History insulin regular hum U-500 conc 500 30 unit SUBCUT QAM 05/12/20 06/29/21 01/29/21 History unit/mL subcutaneous soln (Humulin R U-500 (Concentrated) Insulin) isosorbide mononitrate 30 mg 30 mg PO DAILY 05/12/20 06/29/21 01/29/21 History tablet,extended release 24 hr losartan 100 mg tablet 100 mg PO DAILY 05/12/20 06/29/21 01/29/21 History metoprolol succinate 100 mg 100 mg PO BID 05/12/20 06/29/21 01/29/21 History tablet,extended release 24 hr niacin 1,000 mg tablet,extended 1,000 mg PO BEDTIME 05/12/20 06/29/21 01/28/21 History release 24 hr omeprazole 20 mg capsule,delayed 20 mg PO BID 05/12/20 06/29/21 01/27/21 History release topiramate 100 mg tablet 100 mg PO DAILY@1700 05/12/20 06/29/21 01/29/21 History acetaminophen 325 mg tablet 650 mg PO Q6H PRN 06/29/21 06/29/21 Unknown History alprazolam 0.25 mg tablet (Xanax) 1 tab PO TID 06/29/21 06/29/21 Unknown History amlodipine 5 mg tablet 5 mg PO DAILY 06/29/21 06/29/21 Unknown History [id number] 1 cap PO TID PRN 06/29/21 06/29/21 Unknown History 50 mg-300 mg-40 mg capsule (Fioricet) diphenoxylate-atropine 2.5 1 tab PO BID 06/29/21 06/29/21 Unknown History mg-0.025 mg tablet (Lomotil) duloxetine 20 mg capsule,delayed 20 mg PO BID 06/29/21 06/29/21 Unknown History release ergocalciferol (vitamin D2) 1,000 5 tab PO MO 06/29/21 06/29/21 Unknown History unit tablet gabapentin 400 mg capsule 400 mg PO TID 06/29/21 06/29/21 Unknown History hydromorphone 2 mg tablet 1 tab PO DAILY PRN 06/29/21 06/29/21 Unknown History (Dilaudid) loratadine 10 mg tablet 10 mg PO DAILY 06/29/21 06/29/21 Unknown History metformin 500 mg tablet,extended 1,000 mg PO DAILY 06/29/21 06/29/21 Unknown History release 24 hr topiramate 50 mg tablet 50 mg PO DAILY 06/29/21 06/29/21 Unknown History Physical Exam Vital Signs: Vital Signs: Last Vital Signs Temp 98.5 F 07/01/21 11:37 Pulse 70 07/01/21 11:37 Resp 17 07/01/21 11:37 BP 116/56 L 07/01/21 11:37 Pulse Ox 97 07/01/21 11:37 BMI result Body Mass Index 31.8 Const: General: cooperative, healthy appearing and comfortable Orientation/consciousness: oriented to person, oriented to place and oriented to time HEENT: Head: Yes normal to inspection Neck: Neck: Yes normal visual inspection Carotids: no bruits Chest: Chest palpation & inspection: normal inspection of the chest Resp: Effort & Inspection: normal respiratory effort and able to speak in complete sentences Auscultation: clear to auscultation bilaterally, no crackles, no rales, no rhonchi and no wheezes Cardio: Rate: regular rate Rhythm: regular rhythm Heart sounds: S1 normal heart sound present and S2 normal heart sound present Bruits: no carotid bruits Peripheral pulses: Peripheral pulses 2+ throughout GI: Inspection: Yes normal to inspection Skin: Wounds: amputation site (Right side amp well-healed) and wounds noted (Left medial heel up proximally 4 cm excellent granulation base) Hair: normal Neuro: General: oriented to person, oriented to place and oriented to time Cranial nerves: Yes CN's II-XII intact bilaterally and Yes Normal hearing present Cognition (Neuro): normal cognition Motor exam (neuro): 5/5 motor strength present throughout Extrem: Other: venous exam: No significant superficial varicosities or spider telangiectasias, minimal edema General: No clubbing, No cyanosis and No edema Psych: Appearance: grossly normal Mental Status: mental status grossly normal Speech and movement: Normal speech and movement present Results Labs Result diagrams: 07/01/21 05:35 07/01/21 05:35 Labs: Abnormal lab results 06/30/21 06/30/21 06/30/21 Range/Units 13:39 18:25 19:47 RBC (4.20-5.50) X10*6/uL Hgb (12.0-16.0) g/dl Hct (37.0-47.0) % Chloride (96-108) mmol/L Carbon Dioxide (22-29) mmol/L POC Glucose 307 H 208 H 242 H (60-115) mg/dL Fasting Glucose (60-99) mg/dL 06/30/21 07/01/21 07/01/21 Range/Units 21:19 05:35 05:35 RBC 3.11 L (4.20-5.50) X10*6/uL Hgb 9.9 L (12.0-16.0) g/dl Hct 30.1 L (37.0-47.0) % Chloride 110 H (96-108) mmol/L Carbon Dioxide 19 L (22-29) mmol/L POC Glucose 211 H (60-115) mg/dL Fasting Glucose 175 H (60-99) mg/dL 07/01/21 07/01/21 Range/Units 07:38 11:24 RBC (4.20-5.50) X10*6/uL Hgb (12.0-16.0) g/dl Hct (37.0-47.0) % Chloride (96-108) mmol/L Carbon Dioxide (22-29) mmol/L POC Glucose 184 H 305 H (60-115) mg/dL Fasting Glucose (60-99) mg/dL Short CBC 07/01/21 Range/Units 05:35 WBC 8.9 (4.8-10.8) X10*3/uL Hgb 9.9 L (12.0-16.0) g/dl Hct 30.1 L (37.0-47.0) % Plt Count 182 (160-400) X10*3/uL BMP 07/01/21 05:35 Sodium 140 Potassium 4.2 Chloride 110 H Carbon Dioxide 19 L BUN 13 D Creatinine 0.75 Calcium 8.8 Urine 06/29/21 Range/Units 18:36 Urine Color YELLOW Urine Appearance CLEAR Urine pH 6.5 (5.0-8.0) Ur Specific [place] 1.010 (1.005-1.025) Urine Protein NEG (NEG-TRACE) MG/DL Urine Glucose (UA) 100 H (NEG) MG/DL All other labs normal. Assessment and Plan (1) Diabetic foot ulcer: Status: Acute Plan In short patient has left heel ulcer. She originally presented with abdominal pain and gastroparesis. This appears to have resolved. She had been followed by General surgery. She currently has this left heel ulceration. It appears to be doing extremely well. I have discussed with her and daughter at bedside the importance of offloading. Offloading boot was given to the patient. Will be happy to see her as an outpatient. Thank you for allowing us to assist in her care. If there are any questions or concerns please do not hesitate to contact us. Procedures Date of Service Date of Service: 07/01/21
[2021-07-01] MEDS: ALPRAZolam 0.25 MG TABLET PO ×2 (15:04→20:23)
[2021-07-01 15:49] VITALS: BP 133/60; PULSE 74; RESP 18; TEMP 36.4; O2SAT 96
[2021-07-01] MEDS: ondansetron HCL 4 MG/2 ML VIAL IVPUSH (15:59)
[2021-07-01] MEDS: Topiramate 100 MG TABLET PO (15:59)
[2021-07-01 16:08] LABS: Glucose, Whole Blood 378 mg/dL (60-115)
[2021-07-01] MEDS: DAPTOmycin 500 MG in 0.9 % Sodium Chloride 50 ML 100 MG IV (19:24)
[2021-07-01 19:56] VITALS: BP 127/58; PULSE 69; RESP 18; TEMP 37; O2SAT 95
[2021-07-01] MEDS: Diphenoxylate/Atrop 2.5/0.025 TABLET 1 TAB PO (20:23)
[2021-07-01] MEDS: Amitriptyline HCl 50 MG TABLET PO (20:23)
[2021-07-01] MEDS: Atorvastatin Calcium 80 MG TABLET PO (20:23)
[2021-07-01] MEDS: Melatonin 3 MG TABLET 6 MG PO (20:24)
[2021-07-01 20:50] LABS: Glucose, Whole Blood 254 mg/dL (60-115)
[2021-07-01] MEDS: Enoxaparin Sodium 40 MG/0.4 ML SYRINGE SUBCUT (21:05)
[2021-07-02] VITALS: BP 138/63; PULSE 61; RESP 18; TEMP 36.4; O2SAT 97
[2021-07-02 03:39] VITALS: BP 106/52; PULSE 59; RESP 18; TEMP 36.6; O2SAT 98
[2021-07-02 06:30] LABS: Hematocrit 30.2 % (37.0-47.0); Hemoglobin 9.8 g/dl (12.0-16.0); Mean Corpuscular HGB Conc 32.5 g/dl (31.0-35.0); Mean Corpuscular Hemoglobin 31.3 pg (27.0-33.0); Mean Corpuscular Volume 96.5 fL (80.0-98.0); Mean Platelet Volume 11.2 fL (9.4-12.3); Platelet Count 163 X10*3/uL (160-400); Red Blood Count 3.13 X10*6/uL (4.20-5.50); Red Cell Distribution Width 14.7 % (11.0-16.0); White Blood Count 9.9 X10*3/uL (4.8-10.8)
[2021-07-02 07:03] LABS: Anion Gap 12 (12-20); Blood Urea Nitrogen 12 mg/dL (9-16); Calcium 9.2 mg/dL (8.4-10.2); Carbon Dioxide 24 mmol/L (22-29); Chloride 109 mmol/L (96-108); Creatinine Clr Calc Pharmacy 79.4; Estimated Glomerular Filt Rate > 60; Glucose Fasting 248 mg/dL (60-99); Potassium 4.1 mmol/L (3.3-5.1); Sodium 141 mmol/L (135-145)
[2021-07-02 07:14] VITALS: BP 132/60; PULSE 64; RESP 18; TEMP 36.4; O2SAT 97
[2021-07-02 07:35] LABS: Glucose, Whole Blood 211 mg/dL (60-115)
[2021-07-02] MEDS: Insulin Lispro 100 UNIT/ML 3 ML VIAL SUBCUT ×2 (07:57→11:38)
[2021-07-02] MEDS: Omeprazole 20 MG CAPSULE.DR PO (07:58)
[2021-07-02] MEDS: Diphenoxylate/Atrop 2.5/0.025 TABLET 1 TAB PO (07:58)
[2021-07-02] MEDS: amLODIPine Besylate 5 MG TABLET PO (07:58)
[2021-07-02] MEDS: Topiramate 25 MG TABLET 50 MG PO (07:58)
[2021-07-02] MEDS: ALPRAZolam 0.25 MG TABLET PO (07:58)
[2021-07-02] MEDS: 0.9 % Sodium Chloride Flush 3 ML SYRINGE IVFLUSH (07:58)
[2021-07-02] MEDS: Promethazine HCL 25 MG TABLET PO (07:58)
[2021-07-02] MEDS: DULoxetine HCl 20 MG CAPSULE.DR PO (07:58)
[2021-07-02] MEDS: Losartan Potassium 50 MG TABLET 100 MG PO (07:59)
[2021-07-02] MEDS: Gabapentin 400 MG CAPSULE PO (07:59)
[2021-07-02] MEDS: Loratadine 10 MG TABLET PO (07:59)
[2021-07-02] MEDS: Isosorbide Mononitrate 30 MG TAB.ER.24H PO (07:59)
[2021-07-02] MEDS: Metoprolol Succinate ER 100 MG TAB.ER.24H PO (07:59)
[2021-07-02] MEDS: Butalb/Acetamin/Caff 50/325/40 TABLET 1 TAB PO (08:09)
--- NOTE | 2021-07-02 10:56 | P.DS_ITS ---
DS: Providers Provider Date of Service: 07/02/21 Date of admission: 06/29/21 23:26 Primary care physician: Unknown Physician Consults: 06/30/21 03:23 Consult to Infectious Diseases Routine Consulting Provider: Beba Garcia Reason for consultation: Heel ulcer 07/01/21 07:34 Consult to Vascular Surgery Routine Consulting Provider: Javier Quach Reason for consultation: dfu DS: Diagnosis Discharge Diagnosis (1) Diabetic foot ulcer: Status: Acute DS: Summary Hospital Course Hospital Course: from initial hpi: Chief Complaint: Unresponsive episode 61-year-old female with a past medical history of hypertension, hyperlipidemia, insulin-dependent diabetes, history of gastroparesis, gastrostomy tube placement, CAD, below-knee amputation, anxiety, depression, wheelchair-bound, history of a peptic ulcer disease; history of chronic pain syndrome, decubitus ulcer presented to the hospital today with a chief complaint of brief unresponsive episode.? Patient is a poor historian Reportedly patient mentioned that she was with her DRUM SAW OPERATOR and she should only became unresponsive and not responded to the DRUM SAW OPERATOR who subsequently called the EMS and presented to the ER for further evaluation.? Patient currently denies any chest pain palpitations lightheadedness or dizziness.? Denies any fever chills cough.? Reports he has mild abdominal discomfort and diarrhea.? Mentioned she has chronic diarrhea.? Patient also mentioned that she had left heel ulcer and was on antibiotics for about a week; mentions that heel ulcer is healing Review of all other systems is negative except mentioned above ER course: Per ER team patient initially noted to fingerstick glucose of 20 10 she was found unresponsive; DRUM SAW OPERATOR noted the patient was drowsy and lethargic with slurred speech; EMS gave the patient IM glucagon followed by fingerstick glucose improved to 54; followed by patient received D50 on arrival to the ED with improvement in fingerstick glucose to 189; mental status gradually improved; patient also complained of nausea vomiting.? Patient was empirically given vancomycin and doxycycline; on labs noted to have leukocytosis of 17.7; CT head showed no acute findings; chronic changes CT abdomen showed chronic changes;, subtle colonic wall thickening but no significant pericolonic inflammatory changes; admitted for further management hospital course: patient was admitted for acute metabolic encephalopathy due to diabetes with severe hypoglycemia due to poor intake from gastroparesis. Her gastroparesis was controlled with prokinetics and hydration and patient was able to tolerate solid diet. mental status in sugars returned to baseline. She had some hypo magnesemia that was replaced. She was also evaluated for her diabetic foot ulcer. Determine not require further vascular workup, she will be discharged on 10 more days of doxycycline. For hypertension she was continued on losartan, metoprolol, amlodipine. For hyperlipidemia she was continued on statin. For history of CVA she was continue on statin. For her mood disorder she was continued on Topamax, duloxetine, Xanax. For her chronic pain syndrome she was continued on hydromorphone. Time Spent with Patient Time attestation: Total time spent providing and/or coordinating discharge services: Discharge coordination time: Greater than 30 minutes Quality: Safe Use of Opioids Does Pt have an Active Cancer Diagnosis on the Problem List?: No Quality: Stroke Does the patient have a stroke diagnosis?: No Physical Exam Vital Signs: Vital Signs: Last Vital Signs Temp 97.6 F 07/02/21 07:14 Pulse 64 07/02/21 07:14 Resp 18 07/02/21 07:14 BP 132/60 07/02/21 07:14 Pulse Ox 97 07/02/21 07:14 BMI result Body Mass Index 31.8 Const General:?cooperative, healthy appearing and comfortable Orientation/consciousness:?oriented to person, oriented to place and oriented to time HEENT Head:?Yes normal to inspection Neck Neck:?Yes normal visual inspection Carotids:?no bruits Chest Chest palpation & inspection:?normal inspection of the chest Resp Effort & Inspection:?normal respiratory effort and able to speak in complete sentences Auscultation:?clear to auscultation bilaterally, no crackles, no rales, no rhonchi and no wheezes Cardio Rate:?regular rate Rhythm:?regular rhythm Heart sounds:?S1 normal heart sound present and S2 normal heart sound present Bruits:?no carotid bruits Peripheral pulses:?Peripheral pulses 2+ throughout GI Inspection:?Yes normal to inspection Skin Wounds:?amputation site (Right side amp well-healed) and wounds noted (Left medial heel up proximally 4 cm excellent granulation base) Hair:?normal Neuro General:?oriented to person, oriented to place and oriented to time Cranial nerves:?Yes CN's II-XII intact bilaterally and Yes Normal hearing present Cognition (Neuro):?normal cognition Motor exam (neuro):?5/5 motor strength present throughout Extrem Other: ?venous exam:? No significant superficial varicosities or spider telangiectasias, minimal edema General:?No clubbing, No cyanosis and No edema Psych Appearance:?grossly normal Mental Status:?mental status grossly normal Speech and movement:?Normal speech and movement present DS: Data Data Completed and Pending Labs on day of discharge: Laboratory Results - last 24 hr 07/01/21 07/01/21 07/01/21 11:24 15:51 19:59 WBC RBC Hgb Hct MCV MCH MCHC RDW Plt Count MPV Absolute Nucleated RBC Nucleated RBC % (auto) Sodium Potassium Chloride Carbon Dioxide Anion Gap BUN Creatinine Estim Creat Clear Calc Estimated GFR POC Glucose 305 H 378 H* 254 H Fasting Glucose Calcium 07/02/21 07/02/21 07/02/21 05:59 05:59 07:12 WBC 9.9 RBC 3.13 L Hgb 9.8 L Hct 30.2 L MCV 96.5 MCH 31.3 MCHC 32.5 RDW 14.7 Plt Count 163 MPV 11.2 Absolute Nucleated RBC 0.000 Nucleated RBC % (auto) 0.0 Sodium 141 Potassium 4.1 Chloride 109 H Carbon Dioxide 24 Anion Gap 12 BUN 12 Creatinine 0.78 Estim Creat Clear Calc 79.4 Estimated GFR > 60 POC Glucose 211 H Fasting Glucose 248 H Calcium 9.2 Preliminary micro results at discharge 06/29/21 16:10 Blood Culture - Preliminary Blood - Venous No growth after 48 hours. 06/29/21 15:48 Blood Culture - Preliminary Blood - Venous No growth after 48 hours. Discharge Plan Discharge Patient Disposition: Home, Self-Care Discharge Diagnosis: hypoglycemia Referrals: Physician,Unknown J [Primary Care Provider] - 1 Week Discharge Medications: New doxycycline hyclate 100 mg tablet 100 mg PO BID Qty: 20 0RF Continued promethazine 25 mg Tablet 25 mg PO TID 0RF atorvastatin 80 mg Tablet 80 mg PO BEDTIME 0RF isosorbide mononitrate 30 mg Tablet Extended Release 24 Hr 30 mg PO DAILY 0RF metoprolol succinate 100 mg Tablet Extended Release 24 Hr 100 mg PO BID 0RF amitriptyline 50 mg Tablet 50 mg PO BEDTIME 0RF Humulin R U-500 (Conc) Insulin 500 unit/mL Solution 30 unit SUBCUT QAM 0RF omeprazole 20 mg Capsule,Delayed Release(Dr/Ec) 20 mg PO BID 0RF topiramate 100 mg Tablet 100 mg PO DAILY@1700 0RF losartan 100 mg Tablet 100 mg PO DAILY 0RF niacin 1,000 mg Tablet Extended Release 24 Hr 1,000 mg PO BEDTIME 0RF melatonin 3 mg Tablet 6 mg PO BEDTIME Qty: 30 0RF hydromorphone [Dilaudid] 2 mg tablet 1 tab PO DAILY PRN (Reason: pain) 0RF alprazolam [Xanax] 0.25 mg tablet 1 tab PO TID 0RF [id number] [Fioricet] 50-300-40 mg capsule 1 cap PO TID PRN (Reason: migraine) 0RF acetaminophen 325 mg Tablet 650 mg PO Q6H PRN (Reason: Pain) 0RF gabapentin 400 mg Capsule 400 mg PO TID 0RF diphenoxylate-atropine [Lomotil] 2.5-0.025 mg Tablet 1 tab PO BID 0RF amlodipine 5 mg Tablet 5 mg PO DAILY 0RF metformin 500 mg Tablet Extended Release 24 Hr 1,000 mg PO DAILY 0RF loratadine 10 mg Tablet 10 mg PO DAILY 0RF ergocalciferol (vitamin D2) 1,000 unit Tablet 5 tab PO MO 0RF topiramate 50 mg Tablet 50 mg PO DAILY 0RF duloxetine 20 mg Capsule,Delayed Release(Dr/Ec) 20 mg PO BID 0RF Discharge Orders: Discharge Order (Routine); Ordered 07/02/21 Ordered By: Bereket Blankenship Diet: advance to usual diet Activity on Discharge: As tolerated Stand Alone Forms: Patient Portal Discharge page Care Plan Goals: avoid hypoglycemia, treat cellulitis Health Concerns: DM, cellulitis Plan of Treatment: 10 more days of doxy, small frequent meals Assessment: see above
[2021-07-02 11:02] VITALS: BP 118/59; PULSE 70; RESP 18; TEMP 36.1; O2SAT 98
[2021-07-02 11:08] LABS: Glucose, Whole Blood 297 mg/dL (60-115)
--- NOTE | 2021-07-02 14:06 | MHC.CM.PN ---
Addendum entered by Em Brito 07/02/21 14:27: CM SPOKE WITH PTS COMM[employer]ITY LAPEL PADDER, MATHEW ([phone]) WHO REQUESTED CM INFORMED THE [facility] THAT THE PTS PCP HAD ADDED PT AND OT ORDERS TO HER CARE PRIOR TO HER ADMISSION. SHE ALSO ASKED ABOUT MED CHANGES AND NECESSARY FOLLOW UP CARE. CM PROVIDED INFO AND INFORMED HER THE PT DISCHARGED HOME TODAY WITH RESUMPTION OF CARE Original Note: PT WAS DISCHARGED HOME TODAY WITH RESUMPTION OF HER [employer] SPECIALIST AND [facility] [facility] PT REPORTED SHE DID NOT FEEL HER [employer] SPECIALIST COULD TRANSPORT HER DUE TO HER HEEL ULCER AND INABILITY TO TRANSFER INDEPENDENTLY CM ARRANGED BLS TRANSPORT PT REPORTED HER [employer] SPECIALIST HAD HER KEYS CM CALLED THE [employer] SPECIALIST AT LEAST 6 TIMES THROUGHOUT THE DAY AND LEFT 4 MESSAGES CM ALSO TRIED TO REACH THE PTS DAUGHTER JENNIFER WHO ALSO DID NOT ANSWER CM CALLED [facility] WHERE PT LIVES AND SPOKE TO THE LOAN PROCESSOR WHO INDICATED HE WOULD BE THERE UNTIL 1600 HOURS AND ABLE TO OPEN THE DOOR FOR HER.
== END 2021-07-02 14:03 | disposition home or self-care (01) | DRG 380 ==
LOC: HO.ED 17:57 → HO.EDOVER 23:31 → HO.S3 06-30 22:59
PROVIDERS: Physician Assistant; Admitting Provider Hospitalist; Emergency Provider Emergency Medicine; PCP Internal Medicine; Visit Provider Internal Medicine
DX: E11.649 Type 2 diabetes mellitus with hypoglycemia without coma (principal); L97.429 Non-pressure chronic ulcer of left heel and midfoot with unspecified severity; G93.41 Metabolic encephalopathy; E11.43 Type 2 diabetes mellitus with diabetic autonomic (poly)neuropathy; K31.84 Gastroparesis; E78.5 Hyperlipidemia, unspecified; I25.10 Atherosclerotic heart disease of native coronary artery without angina pectoris; E11.621 Type 2 diabetes mellitus with foot ulcer; G89.29 Other chronic pain; Z86.73 Personal history of transient ischemic attack (TIA), and cerebral infarction without residual deficits; Z20.822 Contact with and (suspected) exposure to COVID-19; Z89.511 Acquired absence of right leg below knee; Z96.82 Presence of neurostimulator; Z88.0 Allergy status to penicillin; Z88.1 Allergy status to other antibiotic agents; Z79.4 Long term (current) use of insulin; Z79.84 Long term (current) use of oral hypoglycemic drugs; Z79.899 Other long term (current) drug therapy
CPT/HCPCS: 36415; 70450; 71045; 73650; 74177; 80048; 80076; 80307; 81003; 82077; 82947; 83605; 83735; 84484; 85025; 85027; 85610; 85730; 87040; 87502; 87635; 93005; 93971; 96361; 96365; 96366; 96367; 96372; 96375; 99285; 99291; J0696; J0878; J1610; J1650; J2405; J3370; J3475; Q9967

== ENCOUNTER 2021-07-09 08:05 | Emergency (ER) | payer MEDICAID, SELFPAY ==
--- NOTE | ~2021-07-09 | XR_ITS ---
EXAMINATION: XR CHEST CLINICAL INFORMATION: Chest pain, shortness of breath. COMPARISON: 06/29/2021 chest radiograph. TECHNIQUE: Frontal view of the chest was obtained. FINDINGS: Support devices: Right-sided central venous port is at the tip terminating in superior vena cava. No significant abnormality is noted involving the heart, lungs, mediastinum, bony thorax or soft tissues. XR/XR chest 1V IMPRESSION: No acute cardiopulmonary process.
[2021-07-09 08:11] VITALS: BP 145/58; BP 156/71; PULSE 72; RESP 13; TEMP 36.6; O2SAT 97; O2SAT 98; BMI 33.8
--- NOTE | 2021-07-09 08:40 | ECG_ITS ---
Test Reason : chest pain / sob Blood Pressure : / mmHG Vent. Rate : 069 BPM Atrial Rate : 069 BPM P-R Int : 146 ms QRS Dur : 098 ms QT Int : 396 ms P-R-T Axes : 047 060 -08 degrees QTc Int : 424 ms Normal sinus rhythm Abnormal QRS-T angle, consider primary T wave abnormality Abnormal ECG When compared with ECG of 29-JUN-2021 15:17, No significant change was found Referred By: Generic ED Physician Electronically Signed By:VLADIMIR DICKEY MD
[2021-07-09 09:02] LABS: MANUAL DIFF FLAG NO
[2021-07-09 09:03] LABS: Basophils Percent Auto 0.1 % (0-2); Eosinophils Absolute Auto 0.1 X10*3/uL (0.0-0.4); Eosinophils Percent Auto 0.7 % (0-4); Hematocrit 29.8 % (37.0-47.0); Hemoglobin 9.9 g/dl (12.0-16.0); Imm Gran Abs Auto 0.02 X10*3/uL (0.00-0.03); Imm Gran Pct Auto 0.3 % (0.0-0.4); Lymphocytes Absolute Auto 2.8 X10*3/uL (1.2-4.9); Lymphocytes Percent Auto 39.6 % (20-40); Mean Corpuscular HGB Conc 33.2 g/dl (31.0-35.0); Mean Corpuscular Hemoglobin 31.9 pg (27.0-33.0); Mean Corpuscular Volume 96.1 fL (80.0-98.0); Mean Platelet Volume 10.7 fL (9.4-12.3); Monocytes Absolute Auto 0.6 X10*3/uL (0.1-1.2); Monocytes Percent Auto 8.7 % (2-11); Neutrophils Absolute Auto 3.6 x10*3/uL (2.0-8.3); Neutrophils Percent Auto 50.6 % (45-73); Platelet Count 178 X10*3/uL (160-400); Red Cell Distribution Width 14.8 % (11.0-16.0); White Blood Count 7.1 X10*3/uL (4.8-10.8)
[2021-07-09 09:17] LABS: IDNOW Serial# 55D5AD1C; Influenza A Negative (Negative); Influenza B2 Negative (Negative)
[2021-07-09 09:18] LABS: COVID-19 Test Negative (Negative)
[2021-07-09 09:23] LABS: Anion Gap 9 (12-20); Blood Urea Nitrogen 7 mg/dL (9-16); Carbon Dioxide 22 mmol/L (22-29); Chloride 112 mmol/L (96-108); Creatinine Clr Calc Pharmacy 86.8; Estimated Glomerular Filt Rate > 60; Glucose Random 280 mg/dL (60-115); Potassium 4.2 mmol/L (3.3-5.1); Sodium 139 mmol/L (135-145)
--- NOTE | 2021-07-09 10:23 | ED_ITS ---
HPI - General Adult General Chief complaint: General Medical Stated complaint: general weakness Time Seen by Provider: 07/09/21 09:48 Source: patient and other (Nicol BARRON can be reached at ) Mode of arrival: EMS Limitations: no limitations History of Present Illness HPI narrative: 61-year-old female who was brought to the emergency department by ambulance for evaluation of feeling sick x3 days. The patient states that she is not feeling well. She states she has constant nausea with no vomiting. She states that she is having abdominal pain. She points to her epigastric area and states she f eels bloated. She states the sensation is constant and is 8/10 at its worst. She has also had 2-3 loose diarrheal stools per day with no blood in the stool. She is complaining of headache, fatigue, weakness, anorexia and muscle pain. The patient states she did have a fever at home but did not take her temperature, she denied chills, she denied rhinorrhea, shortness of breath, cough, frequency, urgency or dysuria. She states she gets intermittent chest pain and takes nitroglycerin but has not taken nitroglycerin in over a month. She does have a history of gastroparesis but she states that the symptoms feel different than her gastroparesis. She does have an implanted gastric stimulator for her gastroparesis. Related Data Home Medications Medication Instructions Recorded Confirmed promethazine 25 mg tablet 25 mg PO TID 04/10/20 06/29/21 amitriptyline 50 mg tablet 50 mg PO BEDTIME 05/12/20 06/29/21 atorvastatin 80 mg tablet 80 mg PO BEDTIME 05/12/20 06/29/21 insulin regular hum U-500 conc 500 30 unit SUBCUT QAM 05/12/20 06/29/21 unit/mL subcutaneous soln (Humulin R U-500 (Concentrated) Insulin) isosorbide mononitrate 30 mg 30 mg PO DAILY 05/12/20 06/29/21 tablet,extended release 24 hr losartan 100 mg tablet 100 mg PO DAILY 05/12/20 06/29/21 metoprolol succinate 100 mg 100 mg PO BID 05/12/20 06/29/21 tablet,extended release 24 hr niacin 1,000 mg tablet,extended 1,000 mg PO BEDTIME 05/12/20 06/29/21 release 24 hr omeprazole 20 mg capsule,delayed 20 mg PO BID 05/12/20 06/29/21 release topiramate 100 mg tablet 100 mg PO DAILY@1700 05/12/20 06/29/21 acetaminophen 325 mg tablet 650 mg PO Q6H PRN 06/29/21 06/29/21 alprazolam 0.25 mg tablet (Xanax) 1 tab PO TID 06/29/21 06/29/21 amlodipine 5 mg tablet 5 mg PO DAILY 06/29/21 06/29/21 qugtdmiodr-znaqvgwgwzhth-[id number] 1 cap PO TID PRN 06/29/21 06/29/21 50 mg-300 mg-40 mg capsule (Fioricet) diphenoxylate-atropine 2.5 1 tab PO BID 06/29/21 06/29/21 mg-0.025 mg tablet (Lomotil) duloxetine 20 mg capsule,delayed 20 mg PO BID 06/29/21 06/29/21 release ergocalciferol (vitamin D2) 1,000 5 tab PO MO 06/29/21 06/29/21 unit tablet gabapentin 400 mg capsule 400 mg PO TID 06/29/21 06/29/21 hydromorphone 2 mg tablet 1 tab PO DAILY PRN 06/29/21 06/29/21 (Dilaudid) loratadine 10 mg tablet 10 mg PO DAILY 06/29/21 06/29/21 metformin 500 mg tablet,extended 1,000 mg PO DAILY 06/29/21 06/29/21 release 24 hr topiramate 50 mg tablet 50 mg PO DAILY 06/29/21 06/29/21 Previous Rx's Medication Instructions Recorded melatonin 3 mg tablet 6 mg PO BEDTIME #30 tab 02/09/21 doxycycline hyclate 100 mg tablet 100 mg PO BID #20 tab 07/02/21 ondansetron 4 mg disintegrating 4 mg PO Q6-8H PRN #14 tab 07/09/21 tablet Allergies Allergy/AdvReac Type Severity Reaction Status Date / Time Penicillins [PENICILLINS] Allergy Mild HIVES Verified 05/25/20 04:33 clarithromycin [From Biaxin] Allergy Unknown HIVES Verified 05/25/20 04:33 penicillin V Allergy Unknown rash, Verified 05/25/20 04:33 throat tight bioxin Allergy Unknown Unknown Uncoded 05/25/20 04:33 penicillin Allergy Unknown Unknown Uncoded 05/25/20 04:33 Review of Systems Review of Systems: Yes all other systems are reviewed and are negative [facility] Past Medical History [facility] Narrative: Social history: She does live at home alone but does have a [employer]CR[employer]PER[employer] this here in the emergency department and does help her at home. The patient denies tobacco, alcohol and drug use. Medical History Anxiety Below knee amputation CAD (coronary artery disease) Cholelithiasis Chronic pain syndrome CVA (cerebral vascular accident) Delirium due to another medical condition Depression Diabetic foot ulcer Diabetic neuropathy associated with diabetes mellitus due to underlying condition Encephalopathy acute Gastroparesis History of gastrostomy tube placement History of peptic ulcer disease HTN (hypertension) Hyperglycemia Hypotonic neurogenic bladder IDDM (insulin dependent diabetes mellitus) Liver lesion Myocardial infarction Wheelchair bound Surgical History History of back surgery Hx of BKA Family History Family History Father Coronary arteriosclerosis Social History Social History Household Members: None Housing: Apartment Are you a primary adult daycare coordinator to a significant other at home: No Do you presently have visiting nurse or other home services: Yes Unable to assess alcohol history related to: Unable to respond Alcohol intake: never Patient Tobacco Use Status: Tobacco use Unknown Second Hand Smoke Exposure: No Advance Directives: Yes Advance Directives on File: Yes Advance Directives Date on File: 05/12/20 service: No Current occupational status: unemployed and disabled Physical Exam ED Vital Signs: Vital Signs - 24 hr 07/09/21 08:11 07/09/21 10:54 Temperature 97.9 F Pulse Rate 72 67 Respiratory Rate 13 18 Blood Pressure 145/58 H 145/89 H Pulse Oximetry 97 97 BMI result Body Mass Index 33.8 Const Other: Awake, alert, female patient, pleasant, cooperative, in no distress, answers all questions appropriately HENMT Head: Yes normal to inspection, Yes normocephalic and Yes atraumatic Ears: external ears normal General nose exam: Normal external nose present Face and sinus: Yes normal facial exam Mouth: Normal oral and palatal mucosa present Throat: Yes posterior oropharynx normal Eyes General: appearance normal, both eyes and all related structures Pupils: Equal, round and reactive pupils present Neck Neck: Yes normal visual inspection, Yes no lymphadenopathy, Yes trachea midline and Yes supple Chest Chest palpation & inspection: normal inspection of the chest and normal palpation of entire chest wall Resp Effort & Inspection: normal respiratory effort and able to speak in complete sentences Auscultation: clear to auscultation bilaterally Cardio Rate: regular rate Rhythm: regular rhythm Heart sounds: S1 normal heart sound present, S2 normal heart sound present and no murmurs GI Inspection: Yes normal to inspection Palpation (GI): Soft to palpation, Tenderness to palpation present (GI) in the epigastrum (Mild) and no guarding Auscultation: normal bowel sounds General: Yes no CVA tenderness Back/Spine/Pelvis Back: no CVA tenderness Skin General skin exam: no rashes or lesions noted Neuro Cranial nerves: Yes CN's II-XII intact bilaterally and Yes Equal, round and reactive pupils present Cognition (Neuro): normal cognition Motor exam (neuro): 5/5 motor strength present throughout Extrem General: Yes normal to inspection Psych Appearance: grossly normal Speech and movement: Normal speech and movement present Affect: normal affect Attitude: cooperative Thought process: Normal thought process present Thought content: Normal thought content present Course Course Course Narrative: 61-year-old female who presents emergency department for evaluation of feeling sick x3 days. Patient's symptoms include nausea, diarrhea and bloated sensation in her abdomen. Patient has also had subjective fever and rhinorrhea.. Patient's vital signs were unremarkable. Examination did reveal epigastric tenderness. Laboratory evaluation including COVID-19, influenza and chest x-ray was ordered. Patient was treated with normal saline IV x1 L, Zofran 4 mg IV and Toradol 15 mg IV. 1036: Laboratory evaluation: CBC revealed anemia with an H&H of 9.929, this is chronic. Glucose was elevated at 280. High sensitive troponin I was detectable but not elevated at 6.0. COVID-19 was negative. Influenza was negative. Radiology evaluation: Chest x-ray revealed no acute disease. Twelve EKG: Normal sinus rhythm with inverted T-waves lead 3 and AVF otherwise unremarkable. 1224: Patient is feeling better with improvement of her nausea, she is requesting more antinausea medicine therefore she was given a 2nd dose of Zofran 4 mg IV. The patient most likely has a viral infection causing her symptoms I did discuss this with her. The patient will be discharged home with a prescription for Zofran. She was advised to take Tylenol and ibuprofen as well. She was given printed and verbal instructions. Given her weakness, I do not think patient go home by private audible and we will give her an ambulance back to her residence. Medical Decision Making Lab Data Result diagrams: 07/09/21 08:56 07/09/21 08:56 Labs: Lab Results 07/09/21 07/09/21 07/09/21 Range/Units 08:56 08:56 08:56 WBC 7.1 (4.8-10.8) X10*3/uL RBC 3.10 L (4.20-5.50) X10*6/uL Hgb 9.9 L (12.0-16.0) g/dl Hct 29.8 L (37.0-47.0) % MCV 96.1 (80.0-98.0) fL MCH 31.9 (27.0-33.0) pg MCHC 33.2 (31.0-35.0) g/dl RDW 14.8 (11.0-16.0) % Plt Count 178 (160-400) X10*3/uL MPV 10.7 (9.4-12.3) fL Immature Gran % (Auto) 0.3 (0.0-0.4) % Neut % (Auto) 50.6 (45-73) % Lymph % (Auto) 39.6 (20-40) % [place] % (Auto) 8.7 (2-11) % Eos % (Auto) 0.7 (0-4) % Baso % (Auto) 0.1 (0-2) % Lymph # (Auto) 2.8 (1.2-4.9) X10*3/uL [place] # (Auto) 0.6 (0.1-1.2) X10*3/uL Eos # (Auto) 0.1 (0.0-0.4) X10*3/uL Baso # (Auto) 0.0 (0.0-0.2) X10*3/uL Abs Immat Gran (auto) 0.02 (0.00-0.03) X10*3/uL Absolute Neuts (auto) 3.6 (2.0-8.3) x10*3/uL Absolute Nucleated RBC 0.000 (0.0-0.012) X10*3/uL Nucleated RBC % (auto) 0.0 (0.0-0.2) /100WBC Sodium 139 (135-145) mmol/L Potassium 4.2 (3.3-5.1) mmol/L Chloride 112 H (96-108) mmol/L Carbon Dioxide 22 (22-29) mmol/L Anion Gap 9 L (12-20) BUN 7 L (9-16) mg/dL Creatinine 0.71 (0.5-1.4) mg/dL Estim Creat Clear Calc 86.8 Estimated GFR > 60 Random Glucose 280 H (60-115) mg/dL Calcium 9.0 (8.4-10.2) mg/dL Troponin I High Sens 6.0 (<3.5-17.0) ng/L COVID-19 (TA) (Negative) COVID-19 Clin Com Influenza Type A (TIMOTHY) (Negative) Influenza Type B (TIMOTHY) (Negative) Influenza A & B Note 07/09/21 07/09/21 Range/Units 08:57 08:57 WBC (4.8-10.8) X10*3/uL RBC (4.20-5.50) X10*6/uL Hgb (12.0-16.0) g/dl Hct (37.0-47.0) % MCV (80.0-98.0) fL MCH (27.0-33.0) pg MCHC (31.0-35.0) g/dl RDW (11.0-16.0) % Plt Count (160-400) X10*3/uL MPV (9.4-12.3) fL Immature Gran % (Auto) (0.0-0.4) % Neut % (Auto) (45-73) % Lymph % (Auto) (20-40) % [place] % (Auto) (2-11) % Eos % (Auto) (0-4) % Baso % (Auto) (0-2) % Lymph # (Auto) (1.2-4.9) X10*3/uL [place] # (Auto) (0.1-1.2) X10*3/uL Eos # (Auto) (0.0-0.4) X10*3/uL Baso # (Auto) (0.0-0.2) X10*3/uL Abs Immat Gran (auto) (0.00-0.03) X10*3/uL Absolute Neuts (auto) (2.0-8.3) x10*3/uL Absolute Nucleated RBC (0.0-0.012) X10*3/uL Nucleated RBC % (auto) (0.0-0.2) /100WBC Sodium (135-145) mmol/L Potassium (3.3-5.1) mmol/L Chloride (96-108) mmol/L Carbon Dioxide (22-29) mmol/L Anion Gap (12-20) BUN (9-16) mg/dL Creatinine (0.5-1.4) mg/dL Estim Creat Clear Calc Estimated GFR Random Glucose (60-115) mg/dL Calcium (8.4-10.2) mg/dL Troponin I High Sens (<3.5-17.0) ng/L COVID-19 (TA) Negative (Negative) COVID-19 Clin Com See Note Influenza Type A (TIMOTHY) Negative (Negative) Influenza Type B (TIMOTHY) Negative (Negative) Influenza A & B Note See Note Discharge Plan Discharge Clinical Impression: Viral syndrome, Diarrhea, Weakness, Acute dehydration Patient Disposition: Home, Self-Care Instructions: Viral Syndrome (ED) Additional Instructions: Your laboratory evaluation was unremarkable except for an elevated glucose of 280. Your COVID-19 test was negative Your influenza test was negative Your chest x-ray was unremarkable. Your symptoms are most likely caused by a virus. Take Zofran ODT 4 mg pills, 1 pill dissolved in your mouth every 8 hours as needed for nausea and vomiting. Take ibuprofen 200 mg pills, 2 pills every 6 hours as needed for pain. Take Tylenol (acetaminophen) 500 mg pills, 2 pills every 4 to 6 hours as needed for pain. Follow-up with your doctor in 2 days. Please return to the emergency department if your symptoms get worse or if you develop any symptoms that are concerning to you. Prescriptions: New ondansetron 4 mg tablet,disintegrating 4 mg PO Q6-8H PRN (Reason: nausea and vomiting) Qty: 14 0RF No Action promethazine 25 mg Tablet 25 mg PO TID 0RF atorvastatin 80 mg Tablet 80 mg PO BEDTIME 0RF isosorbide mononitrate 30 mg Tablet Extended Release 24 Hr 30 mg PO DAILY 0RF metoprolol succinate 100 mg Tablet Extended Release 24 Hr 100 mg PO BID 0RF amitriptyline 50 mg Tablet 50 mg PO BEDTIME 0RF Humulin R U-500 (Conc) Insulin 500 unit/mL Solution 30 unit SUBCUT QAM 0RF omeprazole 20 mg Capsule,Delayed Release(Dr/Ec) 20 mg PO BID 0RF topiramate 100 mg Tablet 100 mg PO DAILY@1700 0RF losartan 100 mg Tablet 100 mg PO DAILY 0RF niacin 1,000 mg Tablet Extended Release 24 Hr 1,000 mg PO BEDTIME 0RF melatonin 3 mg Tablet 6 mg PO BEDTIME Qty: 30 0RF hydromorphone [Dilaudid] 2 mg tablet 1 tab PO DAILY PRN (Reason: pain) 0RF alprazolam [Xanax] 0.25 mg tablet 1 tab PO TID 0RF orjihofbzk-ruojzqhlpywhv-iyng [Fioricet] 50-300-40 mg capsule 1 cap PO TID PRN (Reason: migraine) 0RF acetaminophen 325 mg Tablet 650 mg PO Q6H PRN (Reason: Pain) 0RF gabapentin 400 mg Capsule 400 mg PO TID 0RF diphenoxylate-atropine [Lomotil] 2.5-0.025 mg Tablet 1 tab PO BID 0RF amlodipine 5 mg Tablet 5 mg PO DAILY 0RF metformin 500 mg Tablet Extended Release 24 Hr 1,000 mg PO DAILY 0RF loratadine 10 mg Tablet 10 mg PO DAILY 0RF ergocalciferol (vitamin D2) 1,000 unit Tablet 5 tab PO MO 0RF topiramate 50 mg Tablet 50 mg PO DAILY 0RF duloxetine 20 mg Capsule,Delayed Release(Dr/Ec) 20 mg PO BID 0RF doxycycline hyclate 100 mg tablet 100 mg PO BID Qty: 20 0RF
[2021-07-09] MEDS: Ketorolac Tromethamine 15 MG/ML VIAL IVPUSH (10:51)
[2021-07-09] MEDS: 0.9 % Sodium Chloride 1,000 ML 999 ML IV (10:52)
[2021-07-09] MEDS: ondansetron HCL 4 MG/2 ML VIAL IVPUSH ×2 (10:52→12:43)
[2021-07-09 10:54] VITALS: BP 145/89; PULSE 67; RESP 18; O2SAT 97
[2021-07-09 12:50] VITALS: BP 155/80; PULSE 72; RESP 17; TEMP 37.1; O2SAT 95
== END 2021-07-09 15:05 | disposition home or self-care (01) ==
PROVIDERS: Emergency Provider Emergency Medicine Emergency Medical Services; PCP Internal Medicine
DX: B34.9 Viral infection, unspecified (principal); E86.0 Dehydration; R07.89 Other chest pain; R06.02 Shortness of breath; Z20.822 Contact with and (suspected) exposure to COVID-19; Z79.899 Other long term (current) drug therapy
CPT/HCPCS: 36415; 71045; 80048; 84484; 85025; 87502; 87635; 93005; 96361; 96374; 96375; 96376; 99284; J1885; J2405

== ENCOUNTER 2021-07-10 08:54 | Emergency (ER) | payer MEDICAID, SELFPAY ==
--- NOTE | ~2021-07-10 | CT_ITS ---
EXAMINATION: CT HEAD WITHOUT CONTRAST CLINICAL INFORMATION: Altered mental status. COMPARISON: CT of the head done on 06/29/2021, and 01/29/2021. TECHNIQUE: Contiguous axial imaging was performed from the skull base to vertex without intravenous administration of contrast. This CT examination was performed using dose optimization techniques as appropriate, variously including the following: *Automated exposure control *Adjustment of mA and/or kV according to patient size (this includes techniques or standardized protocols for targeted exams where dose is matched to indication/reason for exam; i.e. extremities or head) *Use of iterative reconstruction technique DLP: 582.43 mGy-cm FINDINGS: There is no evidence of acute intracranial hemorrhage or territorial infarction. No abnormal mass effect or midline shift is seen. Sheets to white matter differentiation is well preserved. No extra-axial fluid collections are identified. The ventricles are normal in size. 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 The mastoid air cells and visualized portions of the paranasal sinuses are well aerated. CT/CT head/brain wo con IMPRESSION: No acute intracranial pathology. 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
--- NOTE | ~2021-07-10 | XR_ITS ---
EXAMINATION: XR CHEST CLINICAL INFORMATION: AMS. COMPARISON: Chest done on 07/09/2021. TECHNIQUE: 2 views of the chest were obtained. FINDINGS: Both lung bond are symmetrically expanded and appear clear. The cardiomediastinal silhouette is within normal limits, given the positioning. Right-sided Port-A-Cath is present with its tip seen projecting at the cavoatrial junction. No evidence of any pleural effusion or thorax. The visualized upper abdomen is unremarkable. XR/XR chest 2V IMPRESSION: No radiographic evidence of pneumonia, appear unchanged since 07/09/2021.
--- NOTE | ~2021-07-10 | CT_ITS ---
EXAMINATION: CT ABDOMEN AND PELVIS WITH CONTRAST CLINICAL INFORMATION: Leukocytosis. Altered mental status. Abdominal pain. COMPARISON: Multiple priors with the last abdomen and pelvic CT scan of 06/29/2021. TECHNIQUE: Multidetector volumetric images were obtained from the superior aspect of the liver through the pubic symphysis following administration 85 mL of Omnipaque 350 intravenous contrast. Sagittal and coronal reformatted images were obtained on the technologist's workstation. Oral contrast: No This CT examination was performed using dose optimization techniques as appropriate, variously including the following: *Automated exposure control *Adjustment of mA and/or kV according to patient size (this includes techniques or standardized protocols for targeted exams where dose is matched to indication/reason for exam; i.e. extremities or head) *Use of iterative reconstruction technique DLP: 590 mGy-cm FINDINGS: LUNG BASES: A 0.3 cm nodule in the left lower lobe anterolaterally (series 4 image 24 of 769) is not clearly seen on the previous CT scans. Mild changes of bronchiectasis in the lower lobes. No pleural or pericardial effusion. LIVER, GALLBLADDER, AND BILIARY TREE: The liver is normal in size, shape, and attenuation. No focal hepatic lesion or intrahepatic biliary ductal dilatation is present. The gallbladder is mildly distended, however, otherwise unremarkable. The common bile duct is mildly prominent in size measuring 1.1 cm, a stable finding. No evidence of choledocholithiasis. PANCREAS: Stable in appearance with [id number] atrophy. No peripancreatic stranding or fluid. SPLEEN: Unremarkable. ADRENAL GLANDS: Unremarkable. KIDNEYS AND URETERS: The kidneys are normal in size, shape, and attenuation. No hydronephrosis, hydroureter, or calculi seen. No perinephric stranding. 3 subcentimeter low-attenuation lesions in the lower pole of the left kidney are too small to characterize accurately, however, statistically likely represent cysts. 2 of the lesions are not significantly changed in size compared to multiple previous CT scans including CT scan of 02/08/2017. A 0.4 cm low-attenuation lesion in the lower pole of the left kidney (series 5 image 50), medially appears to be slightly prominent in size compared to previous studies. No further imaging follow up of these renal lesions is recommended, unless clinically indicated otherwise. BLADDER: Unremarkable. GASTROINTESTINAL TRACT: The stomach is partially distended. Mild thickening of the wall of the gastric antrum is noted which could be partly related to underdistention. No evidence of abnormal small- or large-bowel dilatation. The appendix is not identified clearly; however, there are no inflammatory changes in the expected location of the appendix. ABDOMINAL WALL: An electronic device again noted in the deep subcutaneous tissue of the mid anterior abdominal wall, slightly left of the midline with the wire coursing from this device projecting along the anterior aspect of the stomach. The device probably represents gastric stimulator device, recommend clinical correlation. Mild skin thickening and stranding in the superficial subcutaneous tissue in the right mid abdomen anterolaterally is a stable finding compared to several previous CT scans. LYMPH NODES: No evidence of pathologically enlarged lymph nodes. VASCULAR: The aortoiliac vessels are normal in caliber and demonstrate normal opacification. Extensive calcific atherosclerosis of the aortoiliac vessels, splenic artery as well as SMA and DEVONTE and their branches are noted. PERITONEAL CAVITY: There is no evidence of free intraperitoneal air or fluid. No abscess collection is noted in the abdomen and pelvis. PELVIC VISCERA: Somewhat moderately distended, however, otherwise unremarkable. OSSEOUS STRUCTURES: Stable. No acute osseous abnormality is noted. A 1.5 cm lucent lesion in the body of the L4 and a smaller lucent lesion in the body of the L3 are stable findings compared to multiple previous CT scans including CT scan of 12/02/2019 and 09/07/2016. CT/CT abdomen pelvis w con IMPRESSION: No acute abnormality is noted to explain patient's symptoms. Stable chronic findings as described above. A 0.3 cm nodule in the left lower lobe at the lung base is not clearly seen on the previous studies. According to the UPDATED 2017 Fleischner Society recommendations, the advised follow-up imaging for solid nodules < 6 mm is: LOW RISK PATIENT: No routine follow-up. HIGH RISK PATIENT: Optional CT at 12 months. Fleischner guidelines were followed.
[2021-07-10 09:00] VITALS: BP 115/52; BP 138/62; PULSE 60; PULSE 62; RESP 16; TEMP 36.4; O2SAT 97; O2SAT 98; BMI 29.2
[2021-07-10 09:14] LABS: Glucose, Whole Blood 94 mg/dL (60-115)
--- NOTE | 2021-07-10 09:40 | PC.NURSE ---
Per [facility], Constanza was experiencing hypoglycemia. Initial EMS POC was 40, then 56 after glucose administration. Upon arrival to [facility] ED, pt was given 1 cup of orange juice, and POC was 94 shortly after drinking the orange juice. Awaiting ED MD evaluation, but given turkey sandwich & 2nd cup of orange juice. This RN cared for Constanza yesterday and discharged her home via [facility].
--- NOTE | 2021-07-10 09:42 | ED_ITS ---
HPI - General Adult General Chief complaint: General Medical <CHRISTOFER Shay Last Filed: 07/10/21 15:49> Stated complaint: LOW BS 40, 56 NOW, HIGH BP 156/90 PER EMS <CHRISTOFER Shay Last Filed: 07/10/21 15:49> Time Seen by Provider: 07/10/21 09:40 <CHRISTOFER Shay Last Filed: 07/10/21 15:49> Source: patient <CHRISTOFER Shay Last Filed: 07/10/21 15:49> Mode of arrival: EMS <CHRISTOFER Shay Last Filed: 07/10/21 15:49> Limitations: no limitations <CHRISTOFER Shay Last Filed: 07/10/21 15:49> History of Present Illness HPI narrative: 61 y/o female with history of CVA, CAD, DM, gastroparesis s/p gastric pacemaker, chronic pain on chronic opiates, s/p RLE BKA, HTN, depression/anxiety, left heel pressure ulcer, stage 2 coccyx ulcer, who presents to the ER?for a low blood sugar at home. Patient is not sure who called the ambulance, she is not sure if she took her insulin, nausea. First me she in the same clothes as she was yesterday when she for of viral syndrome with vomiting and nausea, discharged home. Patient is only alert and oriented to person and place, denies chest pain or shortness of breath. Per EMS, her point of care blood glucose was 56. <CHRISTOFER Shay Last Fi led: 07/10/21 15:49> Related Data Home medications: Home Medications Medication Instructions Recorded Confirmed promethazine 25 mg tablet 25 mg PO TID 04/10/20 06/29/21 amitriptyline 50 mg tablet 50 mg PO BEDTIME 05/12/20 06/29/21 atorvastatin 80 mg tablet 80 mg PO BEDTIME 05/12/20 06/29/21 insulin regular hum U-500 conc 500 30 unit SUBCUT QAM 05/12/20 06/29/21 unit/mL subcutaneous soln (Humulin R U-500 (Concentrated) Insulin) isosorbide mononitrate 30 mg 30 mg PO DAILY 05/12/20 06/29/21 tablet,extended release 24 hr losartan 100 mg tablet 100 mg PO DAILY 05/12/20 06/29/21 metoprolol succinate 100 mg 100 mg PO BID 05/12/20 06/29/21 tablet,extended release 24 hr niacin 1,000 mg tablet,extended 1,000 mg PO BEDTIME 05/12/20 06/29/21 release 24 hr omeprazole 20 mg capsule,delayed 20 mg PO BID 05/12/20 06/29/21 release topiramate 100 mg tablet 100 mg PO DAILY@1700 05/12/20 06/29/21 acetaminophen 325 mg tablet 650 mg PO Q6H PRN 06/29/21 06/29/21 alprazolam 0.25 mg tablet (Xanax) 1 tab PO TID 06/29/21 06/29/21 amlodipine 5 mg tablet 5 mg PO DAILY 06/29/21 06/29/21 lvegtyttjc-lriblcrdxslni-jidioamn 1 cap PO TID PRN 06/29/21 06/29/21 50 mg-300 mg-40 mg capsule (Fioricet) diphenoxylate-atropine 2.5 1 tab PO BID 06/29/21 06/29/21 mg-0.025 mg tablet (Lomotil) duloxetine 20 mg capsule,delayed 20 mg PO BID 06/29/21 06/29/21 release ergocalciferol (vitamin D2) 1,000 5 tab PO MO 06/29/21 06/29/21 unit tablet gabapentin 400 mg capsule 400 mg PO TID 06/29/21 06/29/21 hydromorphone 2 mg tablet 1 tab PO DAILY PRN 06/29/21 06/29/21 (Dilaudid) loratadine 10 mg tablet 10 mg PO DAILY 06/29/21 06/29/21 metformin 500 mg tablet,extended 1,000 mg PO DAILY 06/29/21 06/29/21 release 24 hr topiramate 50 mg tablet 50 mg PO DAILY 06/29/21 06/29/21 Previous Rx's Medication Instructions Recorded melatonin 3 mg tablet 6 mg PO BEDTIME #30 tab 02/09/21 doxycycline hyclate 100 mg tablet 100 mg PO BID #20 tab 07/02/21 ondansetron 4 mg disintegrating 4 mg PO Q6-8H PRN #14 tab 07/09/21 tablet <CHRISTOFER Shay - Last Filed: 07/10/21 15:49> Allergies/adverse reactions: Allergies Allergy/AdvReac Type Severity Reaction Status Date / Time Penicillins [PENICILLINS] Allergy Mild HIVES Verified 05/25/20 04:33 clarithromycin [From Biaxin] Allergy Unknown HIVES Verified 05/25/20 04:33 penicillin V Allergy Unknown rash, Verified 05/25/20 04:33 throat tight bioxin Allergy Unknown Unknown Uncoded 05/25/20 04:33 penicillin Allergy Unknown Unknown Uncoded 05/25/20 04:33 <Cele Friedman [facility] Last Filed: 07/10/21 15:49> Review of Systems Constitutional: Constitutional: Denies body ache(s), Denies chills, Reports fatigue, Denies fever(s), Denies headache(s), Denies malaise and Denies weakness <CHRISTOFER Shay Last Filed: 07/10/21 15:49> Eyes: Eyes: Denies diplopia <CHRISTOFER Shay Last Filed: 07/10/21 15:49> ENT: Denies dizziness, Denies otalgia, Denies headache(s), Denies mouth pain, Denies post nasal drip, Denies sinus pain, Denies sinus pressure, Denies sore throat and Denies throat swelling <CHRISTOFER Shay Last Filed: 15:49> Cardiovascular: Cardiovascular: Denies chest pain, Denies syncope, Denies leg edema, Denies lightheadedness, Denies Loss of Consciousness, Denies palpitations and Denies dyspnea <CHRISTOFER Shay Last Filed: 07/10/21 15:49> Respiratory: Respiratory: Denies chest congestion, Denies cough and Denies dyspnea <CHRISTOFER Shay Last Filed: 07/10/21 15:49> Gastrointestinal: Gastrointestinal: Denies abdominal pain, Denies hematochezia, Denies constipation, Denies diarrhea, Reports nausea and Denies vomiting <CHRISTOFER Shay Last Filed: 07/10/21 15:49> Musculoskeletal: Musculoskeletal: Reports no additional musculoskeletal complaints <CHRISTOFER Shay Last Filed: 07/10/21 15:49> Neurologic: Denies Abnormal speech present, Denies dizziness, Denies syncope, Denies headache(s), Denies Sensory deficit (Neuro) and Denies weakness <CHRISTOFER Shay - Last Filed: 07/10/21 15:49> Endocrine: Endocrine: Reports fatigue and Denies palpitations <CHRISTOFER Shay - Last Filed: 07/10/21 15:49> Allergic/Immunologic: Allergic/Immunologic: Denies throat swelling <CHRISTOFER Shay - Last Filed: 07/10/21 15:49> [facility] Past Medical History Medical History: Medical History Anxiety Below knee amputation CAD (coronary artery disease) Cholelithiasis Chronic pain syndrome CVA (cerebral vascular accident) Delirium due to another medical condition Depression Diabetic foot ulcer Diabetic neuropathy associated with diabetes mellitus due to underlying condition Encephalopathy acute Gastroparesis History of gastrostomy tube placement History of peptic ulcer disease HTN (hypertension) Hyperglycemia Hypotonic neurogenic bladder IDDM (insulin dependent diabetes mellitus) Liver lesion Myocardial infarction Wheelchair bound <CHRISTOFER Shay - Last Filed: 07/10/21 15:49> Surgical History: Surgical History History of back surgery Hx of BKA <CHRISTOFER Shay - Last Filed: 07/10/21 15:49> Family History Family History: Family History Father Coronary arteriosclerosis <CHRISTOFER Shay - Last Filed: 07/10/21 15:49> Social History Social History: Social History Household Members: None Housing: Apartment Are you a primary clinical manager home care to a significant other at home: No Do you presently have visiting nurse or other home services: Yes Unable to assess alcohol history related to: Unable to respond Alcohol intake: never Patient Tobacco Use Status: Tobacco use Unknown Second Hand Smoke Exposure: No Advance Directives: Yes Advance Directives on File: Yes Advance Directives Date on File: 05/12/20 Patient : No service: No Current occupational status: unemployed and disabled <CHRISTOFER Shay - Last Filed: 07/10/21 15:49> Physical Exam ED Vital Signs: Vital Signs - 24 hr 07/10/21 09:00 07/10/21 12:00 07/10/21 13:22 Temperature 97.6 F 98.7 F Pulse Rate 62 74 74 Respiratory Rate 16 16 Blood Pressure 115/52 L 125/40 L 136/44 L Pulse Oximetry 98 99 99 07/10/21 14:00 07/10/21 15:39 Temperature 98.0 F Pulse Rate 85 84 Respiratory Rate 15 14 Blood Pressure 101/74 151/59 H Pulse Oximetry 99 99 BMI result Body Mass Index 29.2 <CHRISTOFER Shay Last Filed: 07/10/21 15:49> Vital Signs - 24 hr 07/10/21 09:00 07/10/21 12:00 07/10/21 13:22 Temperature 97.6 F 98.7 F Pulse Rate 62 74 74 Respiratory Rate 16 16 Blood Pressure 115/52 L 125/40 L 136/44 L Pulse Oximetry 98 99 99 07/10/21 14:00 07/10/21 15:39 Temperature 98.0 F Pulse Rate 85 84 Respiratory Rate 15 14 Blood Pressure 101/74 151/59 H Pulse Oximetry 99 99 BMI result Body Mass Index 29.2 <Manuelito Jennings MD - Last Filed: 07/10/21 14:46> Const General: alert and awake <CHRISTOFER Shay Last Filed: 07/10/21 15:49> Nutritional Appearance: obese centrally obese <CHRISTOFER Shay Last Filed: 07/10/21 15:49> Orientation/consciousness: oriented to person, oriented to place and No oriented to time <CHRISTOFER Shay Last Filed: 07/10/21 15:49> Limitations: physical limitations <CHRISTOFER Shay Last Filed: 07/10/21 15:49> HENMT Head: Yes normal to inspection, Yes normocephalic and Yes atraumatic <CHRISTOFER Shay Last Filed: 07/10/21 15:49> Ears: hearing grossly normal bilaterally <CHRISTOFER Shay Last Filed: 07/10/21 15:49> General nose exam: Normal external nose present <CHRISTOFER Shay Last Filed: 07/10/21 15:49> Face and sinus: Yes normal facial exam <Cele Friedman [facility] Last Filed: 07/10/21 15:49> Mouth: Normal oral and palatal mucosa present <Cele Friedman [facility] Last Filed: 07/10/21 15:49> Eyes Pupils: Equal, round and reactive pupils present <Cele Friedman [facility] Last Filed: 07/10/21 15:49> EOM: EOMs intact bilaterally and No Nystagmus present <Cele Friedman [facility] Last Filed: 07/10/21 15:49> Neck Neck: Yes normal visual inspection, Yes full ROM, Yes no meningeal signs, Yes trachea midline and Yes supple <Cele Friedman [facility] Last Filed: 07/10/21 15:49> Resp Effort & Inspection: normal respiratory effort and able to speak in complete sentences <Cele Friedman [facility] Last Filed: 07/10/21 15:49> Auscultation: clear to auscultation bilaterally, no crackles, no rales, no rhonchi and no wheezes <Cele Friedman [facility] Last Filed: 07/10/21 15:49> Cardio Rate: regular rate <Cele Friedman [facility] Last Filed: 07/10/21 15:49> Rhythm: regular rhythm <Cele Friedman [facility] Last Filed: 07/10/21 15:49> Skin General skin exam: no rashes or lesions noted <Cele Friedman [facility] Last Filed: 07/10/21 15:49> Neuro General: oriented to person, oriented to place, No oriented to time, no meningeal signs and Unable to assess gait <Cele Friedman [facility] Last Filed: 07/10/21 15:49> Cranial nerves: Yes Equal, round and reactive pupils present, Yes Bilaterally intact EOM present, Yes Normal facial strength present, Yes Ability to bilaterally rotate head present, Yes Ability to bilaterally elevate shoulders present and No Nystagmus present <Cele Friedman [facility] Last Filed: 07/10/21 15:49> Speech: No Abnormal speech present <Cele Friedman [facility] Last Filed: 07/10/21 15:49> Gait exam (Neuro): Unable to assess gait <CHRISTOFER Shay - Last Filed: 07/10/21 15:49> Motor exam (neuro): 5/5 motor strength present throughout <CHRISTOFER Shay Last Filed: 07/10/21 15:49> Sensory Exam: No Sensory deficit (Neuro) <CHRISTOFER Shay Last Filed: 07/10/21 15:49> Extrem Other: right BKA <CHRISTOFER Shay - Last Filed: 07/10/21 15:49> Course Course Course Narrative: 61-year-old female with history of CVA, CAD, DM, gastroparesis s/p gastric pacemaker, chronic pain on chronic opiates, s/p RLE BKA, HTN, depression/anxiety, left heel pressure ulcer, stage 2 coccyx ulcer, who presents to the ER?with a blood sugar of 56. Patient is not sure who called ambulance or if she took her insulin. Patient is only alert and oriented to person and place. Patient is in the same clothes that she was yesterday, concerned that she went home and was unable to feed or care for herself. Patient has no complaints. Her point of care blood sugar is 146 here in the ER. Will get urine, labs, chest x-ray, COVID, troponin, EKG, head CT, consult case management and physical therapy. <CHRISTOFER Shay Last Filed: 07/10/21 15:49> Reevaluation(s) Reevaluation #1: CT/CT head/brain wo con IMPRESSION: No acute intracranial pathology. Old left EMERGENCY MEDICAL TECHNICIAN territorial infarction. FINDINGS: Both lung bond are symmetrically expanded and appear clear. The cardiomediastinal silhouette is within normal limits, given the positioning. Right-sided Port-A-Cath is present with its tip seen projecting at the cavoatrial junction. No evidence of any pleural effusion or thorax. The visualized upper abdomen is unremarkable. XR/XR chest 2V IMPRESSION: No radiographic evidence of pneumonia, appear unchanged since 07/09/2021. <CHRISTOFER Shay Last Filed: 07/10/21 15:49> Reevaluation #2: Patient has a leukocytosis of 18.6, magnesium 1.4. Labs otherwise unremarkable, chest x-ray unchanged, troponin negative, head CT shows nothing acute. Awaiting urine. Will get blood culture, lactic, give fluids, will replete magnesium <CHRISTOFER Shay - Last Filed: 07/10/21 15:49> Time: 12:34 <CHRISTOFER Shay - Last Filed: 07/10/21 15:49> Reevaluation #3: Urine is negative, CXR is unchanged, patient has leukocytosis of 18.6. Will get CT of abdomen pelvis. Unclear if leukocytosis is reactive versus infectious. No clear source right now. Patient has had low blood pressures but is afebrile. Systolic above 100. <CHRISTOFER Shay - Last Filed: 07/10/21 15:49> Time: 13:32 <CHRISTOFER Shay - Last Filed: 07/10/21 15:49> Additional Reevaluation(s): Patient's rectal temp is 98 degrees. Will repeat a CBC. Awaiting CT abdomen pelvis results. Physical therapy evaluation recommends short-term rehab, but patinet refuses. Shubham Bowles case management. Will place in physician observation at this time 1546 Discussed disposition with Curatorial Specialist. Patient was evaluated by Physical therapy, case management, patient has a EMERGENCY MEDICAL TECHNICIAN who comes in 3 times a day gives patient has her medication. Patient's white blood cell count is now 12 down from 18 on repeat CBC. If CT abdomen pelvis is normal, will send patient home <CHRISTOFER Shay - Last Filed: 07/10/21 15:49> Procedures EJ/Peripheral Line Arm R: Time Out Performed: Yes <Manuelito Jennings MD - Last Filed: 07/10/21 14:46> Skin Cleansed in Sterile Fashion: Yes <Manuelito Jennings MD - Last Filed: 07/10/21 14:46> Size (gauge): 18 <Manuelito Jennings MD - Last Filed: 07/10/21 14:46> IV Secured and Dressing Applied: Yes <Manuelito Jennings MD - Last Filed: 07/10/21 14:46> Patient Tolerated Procedure: well <Manuelito Jennings MD - Last Filed: 07/10/21 14:46> Additional Comments: Under US guided cannulated rt basilic vein with 18 rolo catheter 2 and 1/ inch catheter good blood return good flush <Manuelito Jennings MD - Last Filed: 07/10/21 14:46> Medical Decision Making Lab Data Result diagrams: : 07/10/21 14:37 07/10/21 11:54 <CHRISTOFER Shay - Last Filed: 07/10/21 15:49> Labs: Lab Results 07/10/21 07/10/21 07/10/21 Range/Units 09:10 10:52 11:24 WBC (4.8-10.8) X10*3/uL RBC (4.20-5.50) X10*6/uL Hgb (12.0-16.0) g/dl Hct (37.0-47.0) % MCV (80.0-98.0) fL MCH (27.0-33.0) pg MCHC (31.0-35.0) g/dl RDW (11.0-16.0) % Plt Count (160-400) X10*3/uL MPV (9.4-12.3) fL Immature Gran % (Auto) (0.0-0.4) % Neut % (Auto) (45-73) % Lymph % (Auto) (20-40) % [place] % (Auto) (2-11) % Eos % (Auto) (0-4) % Baso % (Auto) (0-2) % Lymph # (Auto) (1.2-4.9) X10*3/uL [place] # (Auto) (0.1-1.2) X10*3/uL Eos # (Auto) (0.0-0.4) X10*3/uL Baso # (Auto) (0.0-0.2) X10*3/uL Abs Immat Gran (auto) (0.00-0.03) X10*3/uL Absolute Neuts (auto) (2.0-8.3) x10*3/uL Absolute Nucleated RBC (0.0-0.012) X10*3/uL Nucleated RBC % (auto) (0.0-0.2) /100WBC Sodium (135-145) mmol/L Potassium (3.3-5.1) mmol/L Chloride (96-108) mmol/L Carbon Dioxide (22-29) mmol/L Anion Gap (12-20) BUN (9-16) mg/dL Creatinine (0.5-1.4) mg/dL Estim Creat Clear Calc Estimated GFR POC Glucose 94 146 H (60-115) mg/dL Random Glucose (60-115) mg/dL Lactic Acid (0.5-2.0) mmol/L Calcium (8.4-10.2) mg/dL Magnesium (1.6-2.6) mg/dL Total Bilirubin (0.0-1.0) mg/dL AST (5-31) U/L ALT (0-31) U/L Alkaline Phosphatase (39-117) U/L Troponin I High Sens (<3.5-17.0) ng/L Total Protein (6.5-8.0) g/dL Albumin (3.5-5.0) g/dL Urine Color Urine Appearance Urine pH (5.0-8.0) Ur Specific [place] (1.005-1.025) Urine Protein (NEG-TRACE) MG/DL Urine Glucose (UA) (NEG) MG/DL Urine Ketones (NEG) MG/DL Urine Blood (NEG) Urine Nitrite (NEG) Ur Leukocyte Esterase (NEG) COVID-19 (TA) Negative (Negative) COVID-19 Clin Com See Note 07/10/21 07/10/21 07/10/21 Range/Units 11:54 11:54 11:54 WBC 18.6 H (4.8-10.8) X10*3/uL RBC 3.51 L (4.20-5.50) X10*6/uL Hgb 11.3 L (12.0-16.0) g/dl Hct 34.0 L (37.0-47.0) % MCV 96.9 (80.0-98.0) fL MCH 32.2 (27.0-33.0) pg MCHC 33.2 (31.0-35.0) g/dl RDW 15.0 (11.0-16.0) % Plt Count 206 (160-400) X10*3/uL MPV 10.8 (9.4-12.3) fL Immature Gran % (Auto) 0.5 H (0.0-0.4) % Neut % (Auto) 82.7 H (45-73) % Lymph % (Auto) 12.1 L (20-40) % [place] % (Auto) 4.5 (2-11) % Eos % (Auto) 0.1 (0-4) % Baso % (Auto) 0.1 (0-2) % Lymph # (Auto) 2.3 (1.2-4.9) X10*3/uL [place] # (Auto) 0.8 (0.1-1.2) X10*3/uL Eos # (Auto) 0.0 (0.0-0.4) X10*3/uL Baso # (Auto) 0.0 (0.0-0.2) X10*3/uL Abs Immat Gran (auto) 0.10 H (0.00-0.03) X10*3/uL Absolute Neuts (auto) 15.4 H (2.0-8.3) x10*3/uL Absolute Nucleated RBC 0.000 (0.0-0.012) X10*3/uL Nucleated RBC % (auto) 0.0 (0.0-0.2) /100WBC Sodium 141 (135-145) mmol/L Potassium 4.1 (3.3-5.1) mmol/L Chloride 111 H (96-108) mmol/L Carbon Dioxide 22 (22-29) mmol/L Anion Gap 12 (12-20) BUN 9 (9-16) mg/dL Creatinine 0.72 (0.5-1.4) mg/dL Estim Creat Clear Calc 82.5 Estimated GFR > 60 POC Glucose (60-115) mg/dL Random Glucose 140 H (60-115) mg/dL Lactic Acid (0.5-2.0) mmol/L Calcium 9.1 (8.4-10.2) mg/dL Magnesium 1.4 L* (1.6-2.6) mg/dL Total Bilirubin 0.4 (0.0-1.0) mg/dL AST 27 (5-31) U/L ALT 25 (0-31) U/L Alkaline Phosphatase 79 (39-117) U/L Troponin I High Sens 6.5 (<3.5-17.0) ng/L Total Protein 6.9 (6.5-8.0) g/dL Albumin 4.0 (3.5-5.0) g/dL Urine Color Urine Appearance Urine pH (5.0-8.0) Ur Specific [place] (1.005-1.025) Urine Protein (NEG-TRACE) MG/DL Urine Glucose (UA) (NEG) MG/DL Urine Ketones (NEG) MG/DL Urine Blood (NEG) Urine Nitrite (NEG) Ur Leukocyte Esterase (NEG) COVID-19 (TA) (Negative) COVID-19 Clin Com 07/10/21 07/10/21 07/10/21 Range/Units 12:59 12:59 14:37 WBC 12.0 H (4.8-10.8) X10*3/uL RBC 3.08 L (4.20-5.50) X10*6/uL Hgb 9.8 L (12.0-16.0) g/dl Hct 29.7 L (37.0-47.0) % MCV 96.4 (80.0-98.0) fL MCH 31.8 (27.0-33.0) pg MCHC 33.0 (31.0-35.0) g/dl RDW 15.0 (11.0-16.0) % Plt Count 195 (160-400) X10*3/uL MPV 10.4 (9.4-12.3) fL Immature Gran % (Auto) 0.3 (0.0-0.4) % Neut % (Auto) 75.3 H (45-73) % Lymph % (Auto) 18.8 L (20-40) % [place] % (Auto) 5.4 (2-11) % Eos % (Auto) 0.1 (0-4) % Baso % (Auto) 0.1 (0-2) % Lymph # (Auto) 2.3 (1.2-4.9) X10*3/uL [place] # (Auto) 0.7 (0.1-1.2) X10*3/uL Eos # (Auto) 0.0 (0.0-0.4) X10*3/uL Baso # (Auto) 0.0 (0.0-0.2) X10*3/uL Abs Immat Gran (auto) 0.04 H (0.00-0.03) X10*3/uL Absolute Neuts (auto) 9.0 H (2.0-8.3) x10*3/uL Absolute Nucleated RBC 0.000 (0.0-0.012) X10*3/uL Nucleated RBC % (auto) 0.0 (0.0-0.2) /100WBC Sodium (135-145) mmol/L Potassium (3.3-5.1) mmol/L Chloride (96-108) mmol/L Carbon Dioxide (22-29) mmol/L Anion Gap (12-20) BUN (9-16) mg/dL Creatinine (0.5-1.4) mg/dL Estim Creat Clear Calc Estimated GFR POC Glucose (60-115) mg/dL Random Glucose (60-115) mg/dL Lactic Acid 1.2 (0.5-2.0) mmol/L Calcium (8.4-10.2) mg/dL Magnesium (1.6-2.6) mg/dL Total Bilirubin (0.0-1.0) mg/dL AST (5-31) U/L ALT (0-31) U/L Alkaline Phosphatase (39-117) U/L Troponin I High Sens (<3.5-17.0) ng/L Total Protein (6.5-8.0) g/dL Albumin (3.5-5.0) g/dL Urine Color YELLOW Urine Appearance CLEAR Urine pH 6.0 (5.0-8.0) Ur Specific [place] <= 1.005 (1.005-1.025) Urine Protein NEG (NEG-TRACE) MG/DL Urine Glucose (UA) NEG (NEG) MG/DL Urine Ketones NEG (NEG) MG/DL Urine Blood NEG (NEG) Urine Nitrite NEG (NEG) Ur Leukocyte Esterase NEG (NEG) COVID-19 (TA) (Negative) COVID-19 Clin Com <CHRISTOFER Shay - Last Filed: 07/10/21 15:49> Lab Results 07/10/21 07/10/21 07/10/21 Range/Units 09:10 10:52 11:24 WBC (4.8-10.8) X10*3/uL RBC (4.20-5.50) X10*6/uL Hgb (12.0-16.0) g/dl Hct (37.0-47.0) % MCV (80.0-98.0) fL MCH (27.0-33.0) pg MCHC (31.0-35.0) g/dl RDW (11.0-16.0) % Plt Count (160-400) X10*3/uL MPV (9.4-12.3) fL Immature Gran % (Auto) (0.0-0.4) % Neut % (Auto) (45-73) % Lymph % (Auto) (20-40) % [place] % (Auto) (2-11) % Eos % (Auto) (0-4) % Baso % (Auto) (0-2) % Lymph # (Auto) (1.2-4.9) X10*3/uL [place] # (Auto) (0.1-1.2) X10*3/uL Eos # (Auto) (0.0-0.4) X10*3/uL Baso # (Auto) (0.0-0.2) X10*3/uL Abs Immat Gran (auto) (0.00-0.03) X10*3/uL Absolute Neuts (auto) (2.0-8.3) x10*3/uL Absolute Nucleated RBC (0.0-0.012) X10*3/uL Nucleated RBC % (auto) (0.0-0.2) /100WBC Sodium (135-145) mmol/L Potassium (3.3-5.1) mmol/L Chloride (96-108) mmol/L Carbon Dioxide (22-29) mmol/L Anion Gap (12-20) BUN (9-16) mg/dL Creatinine (0.5-1.4) mg/dL Estim Creat Clear Calc Estimated GFR POC Glucose 94 146 H (60-115) mg/dL Random Glucose (60-115) mg/dL Lactic Acid (0.5-2.0) mmol/L Calcium (8.4-10.2) mg/dL Magnesium (1.6-2.6) mg/dL Total Bilirubin (0.0-1.0) mg/dL AST (5-31) U/L ALT (0-31) U/L Alkaline Phosphatase (39-117) U/L Troponin I High Sens (<3.5-17.0) ng/L Total Protein (6.5-8.0) g/dL Albumin (3.5-5.0) g/dL Urine Color Urine Appearance Urine pH (5.0-8.0) Ur Specific [place] (1.005-1.025) Urine Protein (NEG-TRACE) MG/DL Urine Glucose (UA) (NEG) MG/DL Urine Ketones (NEG) MG/DL Urine Blood (NEG) Urine Nitrite (NEG) Ur Leukocyte Esterase (NEG) COVID-19 (TA) Negative (Negative) COVID-19 Clin Com See Note 07/10/21 07/10/21 07/10/21 Range/Units 11:54 11:54 11:54 WBC 18.6 H (4.8-10.8) X10*3/uL RBC 3.51 L (4.20-5.50) X10*6/uL Hgb 11.3 L (12.0-16.0) g/dl Hct 34.0 L (37.0-47.0) % MCV 96.9 (80.0-98.0) fL MCH 32.2 (27.0-33.0) pg MCHC 33.2 (31.0-35.0) g/dl RDW 15.0 (11.0-16.0) % Plt Count 206 (160-400) X10*3/uL MPV 10.8 (9.4-12.3) fL Immature Gran % (Auto) 0.5 H (0.0-0.4) % Neut % (Auto) 82.7 H (45-73) % Lymph % (Auto) 12.1 L (20-40) % [place] % (Auto) 4.5 (2-11) % Eos % (Auto) 0.1 (0-4) % Baso % (Auto) 0.1 (0-2) % Lymph # (Auto) 2.3 (1.2-4.9) X10*3/uL [place] # (Auto) 0.8 (0.1-1.2) X10*3/uL Eos # (Auto) 0.0 (0.0-0.4) X10*3/uL Baso # (Auto) 0.0 (0.0-0.2) X10*3/uL Abs Immat Gran (auto) 0.10 H (0.00-0.03) X10*3/uL Absolute Neuts (auto) 15.4 H (2.0-8.3) x10*3/uL Absolute Nucleated RBC 0.000 (0.0-0.012) X10*3/uL Nucleated RBC % (auto) 0.0 (0.0-0.2) /100WBC Sodium 141 (135-145) mmol/L Potassium 4.1 (3.3-5.1) mmol/L Chloride 111 H (96-108) mmol/L Carbon Dioxide 22 (22-29) mmol/L Anion Gap 12 (12-20) BUN 9 (9-16) mg/dL Creatinine 0.72 (0.5-1.4) mg/dL Estim Creat Clear Calc 82.5 Estimated GFR > 60 POC Glucose (60-115) mg/dL Random Glucose 140 H (60-115) mg/dL Lactic Acid (0.5-2.0) mmol/L Calcium 9.1 (8.4-10.2) mg/dL Magnesium 1.4 L* (1.6-2.6) mg/dL Total Bilirubin 0.4 (0.0-1.0) mg/dL AST 27 (5-31) U/L ALT 25 (0-31) U/L Alkaline Phosphatase 79 (39-117) U/L Troponin I High Sens 6.5 (<3.5-17.0) ng/L Total Protein 6.9 (6.5-8.0) g/dL Albumin 4.0 (3.5-5.0) g/dL Urine Color Urine Appearance Urine pH (5.0-8.0) Ur Specific [place] (1.005-1.025) Urine Protein (NEG-TRACE) MG/DL Urine Glucose (UA) (NEG) MG/DL Urine Ketones (NEG) MG/DL Urine Blood (NEG) Urine Nitrite (NEG) Ur Leukocyte Esterase (NEG) COVID-19 (TA) (Negative) COVID-19 Clin Com 07/10/21 07/10/21 07/10/21 Range/Units 12:59 12:59 14:37 WBC 12.0 H (4.8-10.8) X10*3/uL RBC 3.08 L (4.20-5.50) X10*6/uL Hgb 9.8 L (12.0-16.0) g/dl Hct 29.7 L (37.0-47.0) % MCV 96.4 (80.0-98.0) fL MCH 31.8 (27.0-33.0) pg MCHC 33.0 (31.0-35.0) g/dl RDW 15.0 (11.0-16.0) % Plt Count 195 (160-400) X10*3/uL MPV 10.4 (9.4-12.3) fL Immature Gran % (Auto) 0.3 (0.0-0.4) % Neut % (Auto) 75.3 H (45-73) % Lymph % (Auto) 18.8 L (20-40) % [place] % (Auto) 5.4 (2-11) % Eos % (Auto) 0.1 (0-4) % Baso % (Auto) 0.1 (0-2) % Lymph # (Auto) 2.3 (1.2-4.9) X10*3/uL [place] # (Auto) 0.7 (0.1-1.2) X10*3/uL Eos # (Auto) 0.0 (0.0-0.4) X10*3/uL Baso # (Auto) 0.0 (0.0-0.2) X10*3/uL Abs Immat Gran (auto) 0.04 H (0.00-0.03) X10*3/uL Absolute Neuts (auto) 9.0 H (2.0-8.3) x10*3/uL Absolute Nucleated RBC 0.000 (0.0-0.012) X10*3/uL Nucleated RBC % (auto) 0.0 (0.0-0.2) /100WBC Sodium (135-145) mmol/L Potassium (3.3-5.1) mmol/L Chloride (96-108) mmol/L Carbon Dioxide (22-29) mmol/L Anion Gap (12-20) BUN (9-16) mg/dL Creatinine (0.5-1.4) mg/dL Estim Creat Clear Calc Estimated GFR POC Glucose (60-115) mg/dL Random Glucose (60-115) mg/dL Lactic Acid 1.2 (0.5-2.0) mmol/L Calcium (8.4-10.2) mg/dL Magnesium (1.6-2.6) mg/dL Total Bilirubin (0.0-1.0) mg/dL AST (5-31) U/L ALT (0-31) U/L Alkaline Phosphatase (39-117) U/L Troponin I High Sens (<3.5-17.0) ng/L Total Protein (6.5-8.0) g/dL Albumin (3.5-5.0) g/dL Urine Color YELLOW Urine Appearance CLEAR Urine pH 6.0 (5.0-8.0) Ur Specific [place] <= 1.005 (1.005-1.025) Urine Protein NEG (NEG-TRACE) MG/DL Urine Glucose (UA) NEG (NEG) MG/DL Urine Ketones NEG (NEG) MG/DL Urine Blood NEG (NEG) Urine Nitrite NEG (NEG) Ur Leukocyte Esterase NEG (NEG) COVID-19 (TA) (Negative) COVID-19 Clin Com <Manuelito Jennings MD - Last Filed: 07/10/21 14:46> ECG Data Interpretation: Sinus at a rate of 82, NE interval 146, QRS 102, QTC 446, normal axis, no ST depression or elevation, no T-wave abnormality <CHRISTOFER Shay - Last Filed: 07/10/21 15:49> Discharge Plan Discharge Clinical Impression: Adult failure to thrive, Hypoglycemia <CHRISTOFER Shay - Last Filed: 07/10/21 15:49> Patient Disposition: Home, Self-Care <CHRISTOFER Shay - Last Filed: 07/10/21 15:49> Instructions: Hypoglycemia in a Person with Diabetes (ED) <CHRISTOFER Shay - Last Filed: 07/10/21 15:49> Additional Instructions: Please continue with her physical therapy at home, please return to emergency room for any new or concerning symptoms. <CHRISTOFER Shay - Last Filed: 07/10/21 15:49> Prescriptions: No Action promethazine 25 mg Tablet 25 mg PO TID 0RF atorvastatin 80 mg Tablet 80 mg PO BEDTIME 0RF isosorbide mononitrate 30 mg Tablet Extended Release 24 Hr 30 mg PO DAILY 0RF metoprolol succinate 100 mg Tablet Extended Release 24 Hr 100 mg PO BID 0RF amitriptyline 50 mg Tablet 50 mg PO BEDTIME 0RF Humulin R U-500 (Conc) Insulin 500 unit/mL Solution 30 unit SUBCUT QAM 0RF omeprazole 20 mg Capsule,Delayed Release(Dr/Ec) 20 mg PO BID 0RF topiramate 100 mg Tablet 100 mg PO DAILY@1700 0RF losartan 100 mg Tablet 100 mg PO DAILY 0RF niacin 1,000 mg Tablet Extended Release 24 Hr 1,000 mg PO BEDTIME 0RF melatonin 3 mg Tablet 6 mg PO BEDTIME Qty: 30 0RF hydromorphone [Dilaudid] 2 mg tablet 1 tab PO DAILY PRN (Reason: pain) 0RF alprazolam [Xanax] 0.25 mg tablet 1 tab PO TID 0RF iygltrehkd-[id number]-cqjv [Fioricet] 50-300-40 mg capsule 1 cap PO TID PRN (Reason: migraine) 0RF acetaminophen 325 mg Tablet 650 mg PO Q6H PRN (Reason: Pain) 0RF gabapentin 400 mg Capsule 400 mg PO TID 0RF diphenoxylate-atropine [Lomotil] 2.5-0.025 mg Tablet 1 tab PO BID 0RF amlodipine 5 mg Tablet 5 mg PO DAILY 0RF metformin 500 mg Tablet Extended Release 24 Hr 1,000 mg PO DAILY 0RF loratadine 10 mg Tablet 10 mg PO DAILY 0RF ergocalciferol (vitamin D2) 1,000 unit Tablet 5 tab PO MO 0RF topiramate 50 mg Tablet 50 mg PO DAILY 0RF duloxetine 20 mg Capsule,Delayed Release(Dr/Ec) 20 mg PO BID 0RF doxycycline hyclate 100 mg tablet 100 mg PO BID Qty: 20 0RF ondansetron 4 mg tablet,disintegrating 4 mg PO Q6-8H PRN (Reason: nausea and vomiting) Qty: 14 0RF <CHRISTOFER Shay - Last Filed: 07/10/21 15:49>
--- NOTE | 2021-07-10 10:03 | ECG_ITS ---
Test Reason : CP Blood Pressure : / mmHG Vent. Rate : 062 BPM Atrial Rate : 062 BPM P-R Int : 146 ms QRS Dur : 102 ms QT Int : 440 ms P-R-T Axes : 048 048 003 degrees QTc Int : 446 ms Normal sinus rhythm ST depression inferior leads Borderline ECG When compared with ECG of 09-JUL-2021 08:56, No significant change was found Referred By: Cele Friedman Electronically Signed By:GWEN SOLANO
[2021-07-10 10:56] LABS: Glucose, Whole Blood 146 mg/dL (60-115)
[2021-07-10 11:57] LABS: COVID-19 Test Negative (Negative); IDNOW Serial# 16C4AD1C
[2021-07-10 11:58] LABS: MANUAL DIFF FLAG NO
[2021-07-10 12:00] VITALS: BP 125/40; PULSE 74; RESP 16; TEMP 37.1; O2SAT 99
[2021-07-10 12:00] LABS: Basophils Percent Auto 0.1 % (0-2); Eosinophils Percent Auto 0.1 % (0-4); Hemoglobin 11.3 g/dl (12.0-16.0); Imm Gran Pct Auto 0.5 % (0.0-0.4); Lymphocytes Absolute Auto 2.3 X10*3/uL (1.2-4.9); Lymphocytes Percent Auto 12.1 % (20-40); Mean Corpuscular HGB Conc 33.2 g/dl (31.0-35.0); Mean Corpuscular Hemoglobin 32.2 pg (27.0-33.0); Mean Corpuscular Volume 96.9 fL (80.0-98.0); Mean Platelet Volume 10.8 fL (9.4-12.3); Monocytes Absolute Auto 0.8 X10*3/uL (0.1-1.2); Monocytes Percent Auto 4.5 % (2-11); Neutrophils Absolute Auto 15.4 x10*3/uL (2.0-8.3); Neutrophils Percent Auto 82.7 % (45-73); Platelet Count 206 X10*3/uL (160-400); Red Blood Count 3.51 X10*6/uL (4.20-5.50); White Blood Count 18.6 X10*3/uL (4.8-10.8)
--- NOTE | 2021-07-10 12:15 | PC.NURSE ---
provider used US to place IV site in rt upper arm
[2021-07-10 12:24] LABS: Troponin-I High Sensitivity 6.5 ng/L (<3.5-17.0)
[2021-07-10 12:25] LABS: Alanine Aminotransferase 25 U/L (0-31); Alkaline Phosphatase 79 U/L (39-117); Anion Gap 12 (12-20); Aspartate Amino Transferase 27 U/L (5-31); Bilirubin Total 0.4 mg/dL (0.0-1.0); Blood Urea Nitrogen 9 mg/dL (9-16); Calcium 9.1 mg/dL (8.4-10.2); Carbon Dioxide 22 mmol/L (22-29); Chloride 111 mmol/L (96-108); Creatinine Clr Calc Pharmacy 82.5; Estimated Glomerular Filt Rate > 60; Glucose Random 140 mg/dL (60-115); Magnesium 1.4 mg/dL (1.6-2.6); Potassium 4.1 mmol/L (3.3-5.1); Sodium 141 mmol/L (135-145); Total Protein 6.9 g/dL (6.5-8.0)
--- NOTE | 2021-07-10 13:03 | PC.NURSE ---
straight cath place - pt tolerated well, urine sample, labs obtained.
[2021-07-10] MEDS: 0.9 % Sodium Chloride 2,313.33 ML 2313.33 ML IV (13:07)
[2021-07-10] MEDS: Magnesium Sulfate/D5W 1 GM/100 ML PIGGYBACK IV (13:07)
[2021-07-10 13:22] VITALS: BP 136/44; PULSE 74; O2SAT 99
[2021-07-10 13:23] LABS: Appearance Urine CLEAR; Color Urine YELLOW; Glucose Urine UA NEG (NEG); Leukocyte Esterase Urine NEG (NEG); Nitrite Urine NEG (NEG); Specific Gravity - Urine <= 1.005 (1.005-1.025); Urine Blood NEG (NEG); Urine Ketones NEG (NEG); Urine Protein NEG (NEG-TRACE)
--- NOTE | 2021-07-10 13:23 | PC.NURSE ---
pt medicated per provider order.
[2021-07-10 13:34] LABS: Lactic Acid 1.2 mmol/L (0.5-2.0)
[2021-07-10 14:00] VITALS: BP 101/74; PULSE 85; RESP 15; TEMP 36.7; O2SAT 99
[2021-07-10] MEDS: iohexoL 350 MG/ML 100 ML INFUS..BTL IV (14:23)
--- NOTE | 2021-07-10 14:35 | PC.NURSE ---
3/3 bag of flds started, labs drawn, rectal temp obtained, vss.
[2021-07-10 14:42] LABS: MANUAL DIFF FLAG NO
[2021-07-10 14:47] LABS: Basophils Percent Auto 0.1 % (0-2); Eosinophils Percent Auto 0.1 % (0-4); Hematocrit 29.7 % (37.0-47.0); Hemoglobin 9.8 g/dl (12.0-16.0); Imm Gran Abs Auto 0.04 X10*3/uL (0.00-0.03); Imm Gran Pct Auto 0.3 % (0.0-0.4); Lymphocytes Absolute Auto 2.3 X10*3/uL (1.2-4.9); Lymphocytes Percent Auto 18.8 % (20-40); Mean Corpuscular Hemoglobin 31.8 pg (27.0-33.0); Mean Corpuscular Volume 96.4 fL (80.0-98.0); Mean Platelet Volume 10.4 fL (9.4-12.3); Monocytes Absolute Auto 0.7 X10*3/uL (0.1-1.2); Monocytes Percent Auto 5.4 % (2-11); Neutrophils Percent Auto 75.3 % (45-73); Platelet Count 195 X10*3/uL (160-400); Red Blood Count 3.08 X10*6/uL (4.20-5.50)
[2021-07-10 15:39] VITALS: BP 151/59; PULSE 84; RESP 14; O2SAT 99
[2021-07-10 16:11] LABS: Glucose, Whole Blood 153 mg/dL (60-115)
[2021-07-10 16:13] VITALS: BP 155/61; PULSE 83; RESP 14; O2SAT 99
--- NOTE | 2021-07-10 16:14 | MHC.CM.PN ---
CM DISCUSSED CASE W/ED PROVIDER AND PT'S NURSE, COLLATERAL RECEIVED FROM FAMILY INCLUDING DTR JENNIFER, SON KANNAN AND ROUGHER FOR CEMENT RONNIE. PT LIVES ALONE, IS IN W/C AT BASELINE HOWEVER STANDS AND PIVOTS TO BR/BED, PT IS ACTIVE W/[facility] FOR NSG AND PT, PER PT EVAL PT WAS RECOMMENDED STR HOWEVER PT DECLINES AND WANTS TO GO HOME, PT AWARE AND RECOMMEND ADDITION OF OT, CM HAS NOTIFIED [facility] VIA [employer], PT'S SON KANNAN REPORTS HE HAS BEEN AND WILL CONT TO STAY W/PT AT NIGHT AND IS AWARE PT SHOULD BE HOME BY APPROX 6PM, PT'S DTR REPORTS PT'S ROUGHER FOR CEMENT RONNIE [phone] SEES PT THREE TIMES A DAY TO ADMINISTER MEDS PT CANNOT DO THIS INDEPENDENTLY, PT HAS TOTAL OF 32 DAY HRS AND 14 OVERNIGHT HRS W/[facility]. PER ED PROVIDER PT MEDICALLY CLEARED FOR D/C HOME W/RESUMP OF SERVICES AND FAMILY SUPPORT SHANNAN FOR CHAIR VAN HOME.
== END 2021-07-10 17:59 | disposition home or self-care (01) ==
PROVIDERS: Physician Assistant; Emergency Provider Emergency Medicine; PCP Internal Medicine
DX: R62.7 Adult failure to thrive (principal); E11.649 Type 2 diabetes mellitus with hypoglycemia without coma; G89.29 Other chronic pain; F33.1 Major depressive disorder, recurrent, moderate; I10 Essential (primary) hypertension; Z20.822 Contact with and (suspected) exposure to COVID-19; Z79.4 Long term (current) use of insulin; Z86.73 Personal history of transient ischemic attack (TIA), and cerebral infarction without residual deficits; Z79.899 Other long term (current) drug therapy
CPT/HCPCS: 36415; 70450; 71046; 74177; 80053; 81003; 82947; 83605; 83735; 84484; 85025; 87040; 87635; 93005; 96361; 96374; 97162; 99284; 99285; J3475; Q9967

== ENCOUNTER 2021-07-15 10:25 | Emergency (ER) | payer MEDICAID, SELFPAY ==
[2021-07-15] VITALS (7 sets, daily range): BP systolic 140–169; BP diastolic 52–82; PULSE 72–77; RESP 12–18; TEMP 36.4–37.2; O2SAT 97–100; BMI 31.4
--- NOTE | ~2021-07-15 | CT_ITS ---
EXAMINATION: CT ABDOMEN AND PELVIS WITH CONTRAST CLINICAL INFORMATION: Diffusely tender abdomen COMPARISON: Multiple previous CT abdomen pelvis exams the most recent of which were 07/10/2021 and 06/29/2021 TECHNIQUE: Multidetector volumetric images were obtained from the superior aspect of the liver through the pubic symphysis following administration 85 mL of Omnipaque 350 intravenous contrast. Sagittal and coronal reformatted images were obtained on the technologist's workstation. Oral contrast: No This CT examination was performed using dose optimization techniques as appropriate, variously including the following: *Automated exposure control *Adjustment of mA and/or kV according to patient size (this includes techniques or standardized protocols for targeted exams where dose is matched to indication/reason for exam; i.e. extremities or head) *Use of iterative reconstruction technique DLP: 644 mGy-cm FINDINGS: LUNG BASES: The visualized lung bases are unremarkable. A few calcified granulomas are seen. LIVER, GALLBLADDER, AND BILIARY TREE: The liver is normal in size, shape, and attenuation. No focal hepatic lesion or biliary ductal dilatation is present. The gallbladder is unremarkable with no evidence of radiopaque gallstones, gallbladder wall thickening, or obvious pericholecystic inflammatory changes. PANCREAS: There is marked pancreatic atrophy. SPLEEN: Unremarkable. ADRENAL GLANDS: Unremarkable. KIDNEYS AND URETERS: The kidneys are normal in size, shape, and attenuation. A small water density benign cyst is noted at the lower pole on the left. No suspicious solid masses are seen. No hydronephrosis, hydroureter, or calculi seen. No perinephric stranding. BLADDER: Unremarkable. GASTROINTESTINAL TRACT: The small and large bowel are unremarkable. The appendix is not seen and there is no evidence of appendicitis. ABDOMINAL WALL: Implanted stimulator is present in the left midabdomen with leads extending towards the stomach LYMPH NODES: No lymphadenopathy. VASCULAR: Calcific atherosclerotic plaque present aorta and iliofemoral vessels as well as its branches. There is a replaced right hepatic artery arising from SMA. The left renal vein is retroaortic. PELVIC VISCERA: Unremarkable. OSSEOUS STRUCTURES: There is a 1.4 cm lytic rounded region L4. With a smaller 0.8 cm lesion in L3. A similar lesion is seen in T9. All of these findings are unchanged when compared to the study from 07/10/2021. They also have been shown to be stable on the older studies dating back to 2017. CT/CT abdomen pelvis w con IMPRESSION: 1. A cause for the patient's diffuse abdominal pain has not been found. 2. Incidental findings as described above. 3. No interval change from the study of 5 days ago. Fleischner guidelines were followed.
--- NOTE | ~2021-07-15 | CT_ITS ---
EXAMINATION: CT HEAD WITHOUT CONTRAST CLINICAL INFORMATION: Unwitnessed fall COMPARISON: 07/10/2021 TECHNIQUE: Contiguous axial imaging was performed from the skull base to vertex without intravenous administration of contrast. This CT examination was performed using dose optimization techniques as appropriate, variously including the following: *Automated exposure control *Adjustment of mA and/or kV according to patient size (this includes techniques or standardized protocols for targeted exams where dose is matched to indication/reason for exam; i.e. extremities or head) *Use of iterative reconstruction technique DLP: 698 mGy-cm FINDINGS: There is no midline shift. There is no mass effect. There is no hemorrhage. The basal cisterns appear patent. The posterior fossa risk grossly within normal limits. No extra-axial collection is seen. Scattered white matter ischemic changes and old left occipital infarction. No extra-axial collection. There is no fracture on the bone windows. CT/CT head/brain wo con IMPRESSION: Negative acute noncontrast CT of the brain.
--- NOTE | 2021-07-15 10:47 | ECG_ITS ---
Test Reason : Weakness Blood Pressure : / mmHG Vent. Rate : 072 BPM Atrial Rate : 072 BPM P-R Int : 120 ms QRS Dur : 102 ms QT Int : 408 ms P-R-T Axes : 058 062 -32 degrees QTc Int : 446 ms Normal sinus rhythm Possible Inferior infarct , age undetermined -could be non specific Borderline ECG When compared with ECG of 10-JUL-2021 10:28, Borderline criteria for Inferior infarct are now Present T wave inversion more evident in Inferior leads Referred By: Geovany Samuel Electronically Signed By:GWEN SOLANO
--- NOTE | 2021-07-15 10:51 | ED_ITS ---
HPI - Abdominal Pain General Chief Complaint: Abdominal Pain Stated Complaint: WEAKNESS,NOT FEELING WELL Time Seen by Provider: 07/15/21 10:47 Source: patient and EMS Mode of arrival: EMS Limitations: no limitations History of Present Illness HPI narrative: This is a 61-year-old female past medical history significant for diabetes, anxiety, htn, CAD, history of gastrostomy tube placement, colitis presenting to the emergency department with complaints of abdominal pain, nausea, vomiting, weakness x1 week progressively worsening. According to patient she has not been able to keep much food down over the past week. She tells me that every time she eats or tries to eat she becomes nauseous and she vomits. She also reports diffuse abdominal pain. She is unable to quantify how many times she has vomited. She tells me she vomits whenever she eats and it is liquid, blood free. She tells me she lives at home by herself, she has a [employer] AC[employer]ITIONS ASSOCIATE who visits her and her son frequently visits as well. Nobody around her is sick with similar symptoms. She denies chest pain, shortness of breath, diarrhea, fevers, chills, dizziness, headache. She is up-to-date on her flu and COVID vaccines. MD elicited complaint: abdominal pain Pertinent past history: none Onset (ago): week(s) (1) Pain Consistency: constant Location: diffuse Severity: moderate Quality: cramping Radiation: none Migration to: no migration Relieving factors: nothing Associated symptoms: nausea and vomiting Related Data Home Medications Medication Instructions Recorded Confirmed promethazine 25 mg tablet 25 mg PO TID 04/10/20 07/15/21 amitriptyline 50 mg tablet 50 mg PO BEDTIME 05/12/20 07/15/21 atorvastatin 80 mg tablet 80 mg PO BEDTIME 05/12/20 07/15/21 isosorbide mononitrate 30 mg 30 mg PO DAILY 05/12/20 07/15/21 tablet,extended release 24 hr losartan 100 mg tablet 100 mg PO DAILY 05/12/20 07/15/21 metoprolol succinate 100 mg 100 mg PO BID 05/12/20 07/15/21 tablet,extended release 24 hr niacin 1,000 mg tablet,extended 1,000 mg PO BEDTIME 05/12/20 07/15/21 release 24 hr omeprazole 20 mg capsule,delayed 20 mg PO BID 05/12/20 07/15/21 release topiramate 100 mg tablet 100 mg PO DAILY@1700 05/12/20 07/15/21 acetaminophen 325 mg tablet 650 mg PO Q6H PRN 06/29/21 07/15/21 alprazolam 0.25 mg tablet (Xanax) 1 tab PO TID 06/29/21 07/15/21 csdbtugoov-obpeslqdmhums-kxhajnnw 1 cap PO TID PRN 06/29/21 07/15/21 50 mg-300 mg-40 mg capsule (Fioricet) diphenoxylate-atropine 2.5 1 tab PO BID 06/29/21 07/15/21 mg-0.025 mg tablet (Lomotil) duloxetine 20 mg capsule,delayed 20 mg PO BID 06/29/21 07/15/21 release gabapentin 400 mg capsule 400 mg PO TID 06/29/21 07/15/21 hydromorphone 2 mg tablet 1 tab PO DAILY PRN 06/29/21 07/15/21 (Dilaudid) loratadine 10 mg tablet 10 mg PO DAILY 06/29/21 07/15/21 metformin 500 mg tablet,extended 1,000 mg PO DAILY 06/29/21 07/15/21 release 24 hr ergocalciferol (vitamin D2) 1,250 1,250 mcg PO QWEEK 07/15/21 07/15/21 mcg (50,000 unit) capsule insulin lispro 100 unit/mL 30 unit SUBCUT DAILY 07/15/21 07/15/21 subcutaneous solution (Humalog U-100 Insulin) metoclopramide HCl 10 mg tablet 10 mg PO BID PRN 07/15/21 07/15/21 multivitamin 1 tab PO DAILY 07/15/21 07/15/21 nitroglycerin 0.4 mg sublingual 0.4 mg SUBLINGUAL Q5M PRN 07/15/21 07/15/21 tablet (Nitrostat) sennosides 8.6 mg tablet (senna) 17.2 mg PO BEDTIME 07/15/21 07/15/21 Previous Rx's Medication Instructions Recorded melatonin 3 mg tablet 6 mg PO BEDTIME #30 tab 02/09/21 doxycycline hyclate 100 mg tablet 100 mg PO BID #20 tab 07/02/21 Allergies Allergy/AdvReac Type Severity Reaction Status Date / Time Penicillins [PENICILLINS] Allergy Mild HIVES Verified 05/25/20 04:33 clarithromycin [From Biaxin] Allergy Unknown HIVES Verified 05/25/20 04:33 penicillin V Allergy Unknown rash, Verified 05/25/20 04:33 throat tight bioxin Allergy Unknown Unknown Uncoded 05/25/20 04:33 penicillin Allergy Unknown Unknown Uncoded 05/25/20 04:33 Review of Systems Review of Systems Constitutional : No Weight loss, No Fever, No Chills, No Fatigue, No Malaise ENT/Mouth : No sore throat, No Rhinorrhea Eyes: No Eye Pain, No Swelling, No Redness Cardiovascular : No Chest Pain, No SOB, No Dyspnea on Exertion, No Orthopnea, No Edema, No Palpitations Respiratory : No Cough, No Sputum, No Wheezing Gastrointestinal : + Nausea, + Vomiting, No Diarrhea, No Constipation, + abdominal Pain, No Hematochezia, No Melena Genitourinary : No Dysuria, No Urinary Frequency, No Hematuria, Musculoskeletal : No joint pain, No Myalgias, No Joint Swelling Skin : No Skin Lesions, No rash Neuro : No Weakness, No Numbness, No Dizziness, No Headache Psych : No Anxiety/Panic, No Depression All other systems reviewed and are negative Yes all other systems are reviewed and are negative [facility] Past Medical History Attestation statement: The following information was validated with the patient. Source: old records reviewed and nursing notes reviewed Medical History Anxiety Below knee amputation CAD (coronary artery disease) Cholelithiasis Chronic pain syndrome CVA (cerebral vascular accident) Delirium due to another medical condition Depression Diabetic foot ulcer Diabetic neuropathy associated with diabetes mellitus due to underlying condition Encephalopathy acute Gastroparesis History of gastrostomy tube placement History of peptic ulcer disease HTN (hypertension) Hyperglycemia Hypotonic neurogenic bladder IDDM (insulin dependent diabetes mellitus) Liver lesion Myocardial infarction Wheelchair bound Surgical History History of back surgery Hx of BKA Family History Family History Father Coronary arteriosclerosis Social History Social History Household Members: None Housing: Apartment Are you a primary child care assistant to a significant other at home: No Do you presently have visiting nurse or other home services: Yes Unable to assess alcohol history related to: Unable to respond Alcohol intake: never Patient Tobacco Use Status: Never used Tobacco Second Hand Smoke Exposure: No Use of substances other than those prescribed or required for medical reasons: No Advance Directives: Yes Advance Directives on File: Yes Advance Directives Date on File: 05/12/20 service: No Current occupational status: unemployed and disabled Physical Exam ED Vital Signs: Vital Signs - 24 hr 07/15/21 10:42 07/15/21 11:39 07/15/21 13:06 Temperature 98.6 F 99 F Pulse Rate 72 75 76 Respiratory Rate 18 13 16 Blood Pressure 153/60 H 153/59 H 169/61 H Pulse Oximetry 99 99 100 07/15/21 14:56 07/15/21 17:10 Temperature 98.1 F 97.6 F Pulse Rate 73 77 Respiratory Rate 13 17 Blood Pressure 145/58 H 147/52 H Pulse Oximetry 98 100 BMI result Body Mass Index 31.4 Vital signs stable Appearance: Alert.? Oriented X3.? No acute distress.? Head: Normocephalic, atraumatic, no step-offs or deformities Eyes: Pupils equal, round and reactive to light.? ENT: Pharynx normal.? Neck: Normal inspection.? Neck supple.? CVS: Normal heart rate and rhythm.? Pulses normal.? Respiratory: No respiratory distress.? Breath sounds normal.? Abdomen: Soft and + diffusely tender abdomen. Normoactive bowel sounds.? Skin: Skin warm and dry.? Normal skin color.? Normal skin turgor.? Extremities: No lower extremity edema.? No calf ttp. 5/5 strength to bilateral upper and lower extremities Back: No midline tenderness, no C-spine tenderness, full range of motion, no CVA tenderness bilaterally Neuro: Oriented X 3.? No motor deficit.? No sensory deficit. CN 2-12 intact Course Reevaluation(s) Reevaluation #1: CBC appears to be at patient's baseline. Patient is noted to have a low magnesium, she will be given 2 g of IV magnesium. COVID and influenza negative. VBG within normal limits, small amount of acetone, unlikely that this is DKA likley from dehydration, nausea and vomiting. Troponin 5.9. Repeat pe nding. Time: 15:19 Reevaluation #2: Troponin flat EKG nonischemic unlikely that this is ACS. CT of the abdomen and pelvis with no acute findings. Amber from case management informed me that she spoke to home trimming caser who reports that patient has been having frequent falls at home. At this time head CT will be ordered for medical clearance. Time: 16:56 Reevaluation #3: CT of the head with no acute findings. At this time patient will be placed in physician observation to allow more time to be evaluated by physical therapy in case management. At time observation was started patient common cooperative no acute distress. Stable vitals. Not vomiting. Comfortable. Will continue to monitor Time: 19:11 MDM - Abdominal Pain MDM Narrative Medical decision making narrative: 1056 61-year-old female presents with nausea, vomiting, weakness and diffuse abdominal pain x1 week progressively Worsening. Physical examination significant for a diffusely tender abdomen with normoactive bowel sounds, no acute abdomen, no peritoneal signs. Regular rate and rhythm. Lungs clear. Neuro exam nonfocal. Plan at this time is basic labs, fluids, EKG, CT of the abdomen pelvis. Will rule out electrolyte abnormalities, intra-abdominal etiologies, influenza, COVID. Medical Records Attestation: I reviewed the patient's medical records. Lab Data Attestation: I reviewed the patient's lab results. Result diagrams: 07/15/21 11:58 07/15/21 11:58 Labs: Lab Results 07/15/21 07/15/21 07/15/21 Range/Units 10:56 11:28 11:28 WBC (4.8-10.8) X10*3/uL RBC (4.20-5.50) X10*6/uL Hgb (12.0-16.0) g/dl Hct (37.0-47.0) % MCV (80.0-98.0) fL MCH (27.0-33.0) pg MCHC (31.0-35.0) g/dl RDW (11.0-16.0) % Plt Count (160-400) X10*3/uL MPV (9.4-12.3) fL Immature Gran % (Auto) (0.0-0.4) % Neut % (Auto) (45-73) % Lymph % (Auto) (20-40) % Gordon % (Auto) (2-11) % Eos % (Auto) (0-4) % Baso % (Auto) (0-2) % Lymph # (Auto) (1.2-4.9) X10*3/uL Gordon # (Auto) (0.1-1.2) X10*3/uL Eos # (Auto) (0.0-0.4) X10*3/uL Baso # (Auto) (0.0-0.2) X10*3/uL Abs Immat Gran (auto) (0.00-0.03) X10*3/uL Absolute Neuts (auto) (2.0-8.3) x10*3/uL Absolute Nucleated RBC (0.0-0.012) X10*3/uL Nucleated RBC % (auto) (0.0-0.2) /100WBC VBG pH (7.32-7.43) VBG pCO2 mmHg VBG pO2 mmHg VBG HCO3 (22-26) mmol/L VBG O2 Saturation % VBG Base Excess mmol/L Sodium (135-145) mmol/L Potassium (3.3-5.1) mmol/L Chloride (96-108) mmol/L Carbon Dioxide (22-29) mmol/L Anion Gap (12-20) BUN (9-16) mg/dL Creatinine (0.5-1.4) mg/dL Estim Creat Clear Calc Estimated GFR POC Glucose 203 H (60-115) mg/dL Random Glucose (60-115) mg/dL Calcium (8.4-10.2) mg/dL Magnesium (1.6-2.6) mg/dL Total Bilirubin (0.0-1.0) mg/dL AST (5-31) U/L ALT (0-31) U/L Alkaline Phosphatase (39-117) U/L Troponin I High Sens (<3.5-17.0) ng/L Total Protein (6.5-8.0) g/dL Albumin (3.5-5.0) g/dL Acetone, Qual (Negative) COVID-19 (TA) Negative (Negative) COVID-19 Clin Com See Note Influenza Type A (TIMOTHY) Negative (Negative) Influenza Type B (TIMOTHY) Negative (Negative) Influenza A & B Note See Note 07/15/21 07/15/21 07/15/21 Range/Units 11:58 11:58 11:58 WBC 7.5 (4.8-10.8) X10*3/uL RBC 3.57 L (4.20-5.50) X10*6/uL Hgb 11.5 L (12.0-16.0) g/dl Hct 34.4 L (37.0-47.0) % MCV 96.4 (80.0-98.0) fL MCH 32.2 (27.0-33.0) pg MCHC 33.4 (31.0-35.0) g/dl RDW 14.8 (11.0-16.0) % Plt Count 194 (160-400) X10*3/uL MPV 10.7 (9.4-12.3) fL Immature Gran % (Auto) 0.1 (0.0-0.4) % Neut % (Auto) 60.4 (45-73) % Lymph % (Auto) 31.4 (20-40) % Gordon % (Auto) 7.3 (2-11) % Eos % (Auto) 0.5 (0-4) % Baso % (Auto) 0.3 (0-2) % Lymph # (Auto) 2.4 (1.2-4.9) X10*3/uL Gordon # (Auto) 0.6 (0.1-1.2) X10*3/uL Eos # (Auto) 0.0 (0.0-0.4) X10*3/uL Baso # (Auto) 0.0 (0.0-0.2) X10*3/uL Abs Immat Gran (auto) 0.01 (0.00-0.03) X10*3/uL Absolute Neuts (auto) 4.6 (2.0-8.3) x10*3/uL Absolute Nucleated RBC 0.000 (0.0-0.012) X10*3/uL Nucleated RBC % (auto) 0.0 (0.0-0.2) /100WBC VBG pH (7.32-7.43) VBG pCO2 mmHg VBG pO2 mmHg VBG HCO3 (22-26) mmol/L VBG O2 Saturation % VBG Base Excess mmol/L Sodium 138 (135-145) mmol/L Potassium 4.1 (3.3-5.1) mmol/L Chloride 111 H (96-108) mmol/L Carbon Dioxide 17 L (22-29) mmol/L Anion Gap 14 (12-20) BUN 10 (9-16) mg/dL Creatinine 0.80 (0.5-1.4) mg/dL Estim Creat Clear Calc 77.0 Estimated GFR > 60 POC Glucose (60-115) mg/dL Random Glucose 260 H (60-115) mg/dL Calcium 9.1 (8.4-10.2) mg/dL Magnesium 1.4 L* (1.6-2.6) mg/dL Total Bilirubin 0.3 (0.0-1.0) mg/dL AST 13 D (5-31) U/L ALT 12 (0-31) U/L Alkaline Phosphatase 67 (39-117) U/L Troponin I High Sens 5.9 (<3.5-17.0) ng/L Total Protein 6.7 (6.5-8.0) g/dL Albumin 3.8 (3.5-5.0) g/dL Acetone, Qual Small H (Negative) COVID-19 (TA) (Negative) COVID-19 Clin Com Influenza Type A (TIMOTHY) (Negative) Influenza Type B (TIMOTHY) (Negative) Influenza A & B Note 07/15/21 07/15/21 Range/Units 12:03 16:01 WBC (4.8-10.8) X10*3/uL RBC (4.20-5.50) X10*6/uL Hgb (12.0-16.0) g/dl Hct (37.0-47.0) % MCV (80.0-98.0) fL MCH (27.0-33.0) pg MCHC (31.0-35.0) g/dl RDW (11.0-16.0) % Plt Count (160-400) X10*3/uL MPV (9.4-12.3) fL Immature Gran % (Auto) (0.0-0.4) % Neut % (Auto) (45-73) % Lymph % (Auto) (20-40) % Gordon % (Auto) (2-11) % Eos % (Auto) (0-4) % Baso % (Auto) (0-2) % Lymph # (Auto) (1.2-4.9) X10*3/uL Gordon # (Auto) (0.1-1.2) X10*3/uL Eos # (Auto) (0.0-0.4) X10*3/uL Baso # (Auto) (0.0-0.2) X10*3/uL Abs Immat Gran (auto) (0.00-0.03) X10*3/uL Absolute Neuts (auto) (2.0-8.3) x10*3/uL Absolute Nucleated RBC (0.0-0.012) X10*3/uL Nucleated RBC % (auto) (0.0-0.2) /100WBC VBG pH 7.41 (7.32-7.43) VBG pCO2 19 mmHg VBG pO2 166 mmHg VBG HCO3 12 L (22-26) mmol/L VBG O2 Saturation 100.0 % VBG Base Excess -9.6 mmol/L Sodium (135-145) mmol/L Potassium (3.3-5.1) mmol/L Chloride (96-108) mmol/L Carbon Dioxide (22-29) mmol/L Anion Gap (12-20) BUN (9-16) mg/dL Creatinine (0.5-1.4) mg/dL Estim Creat Clear Calc Estimated GFR POC Glucose (60-115) mg/dL Random Glucose (60-115) mg/dL Calcium (8.4-10.2) mg/dL Magnesium (1.6-2.6) mg/dL Total Bilirubin (0.0-1.0) mg/dL AST (5-31) U/L ALT (0-31) U/L Alkaline Phosphatase (39-117) U/L Troponin I High Sens 4.6 (<3.5-17.0) ng/L Total Protein (6.5-8.0) g/dL Albumin (3.5-5.0) g/dL Acetone, Qual (Negative) COVID-19 (TA) (Negative) COVID-19 Clin Com Influenza Type A (TIMOTHY) (Negative) Influenza Type B (TIMOTHY) (Negative) Influenza A & B Note ECG Data Attestation: I personally reviewed and interpreted this ECG as follows: ECG interpretation date: 07/15/21 ECG interpretation time: 11:28 Prior ECG tracings: available for review Interpretation: ventricular rate of 72, [place] normal, QRS normal, QT / QTC normal. There are T- wave inversions in the inferior leads, no evidence signs of ischemia. When compared to EKG from June 2021 there are new T-wave inversions in the inferior leads Critical Care Time Critical Care Time Critical Care Time: No Discharge Plan Discharge Clinical Impression: Nausea & vomiting, Abdominal pain, Weakness, Falls Patient Disposition: Still a Patient Prescriptions: No Action promethazine 25 mg Tablet 25 mg PO TID 0RF atorvastatin 80 mg Tablet 80 mg PO BEDTIME 0RF isosorbide mononitrate 30 mg Tablet Extended Release 24 Hr 30 mg PO DAILY 0RF metoprolol succinate 100 mg Tablet Extended Release 24 Hr 100 mg PO BID 0RF amitriptyline 50 mg Tablet 50 mg PO BEDTIME 0RF omeprazole 20 mg Capsule,Delayed Release(Dr/Ec) 20 mg PO BID 0RF topiramate 100 mg Tablet 100 mg PO DAILY@1700 0RF losartan 100 mg Tablet 100 mg PO DAILY 0RF niacin 1,000 mg Tablet Extended Release 24 Hr 1,000 mg PO BEDTIME 0RF melatonin 3 mg Tablet 6 mg PO BEDTIME Qty: 30 0RF hydromorphone [Dilaudid] 2 mg tablet 1 tab PO DAILY PRN (Reason: pain) 0RF alprazolam [Xanax] 0.25 mg tablet 1 tab PO TID 0RF blaskzxkef-qwaxjgzuevunu-ehwc [Fioricet] 50-300-40 mg capsule 1 cap PO TID PRN (Reason: migraine) 0RF acetaminophen 325 mg Tablet 650 mg PO Q6H PRN (Reason: Pain) 0RF gabapentin 400 mg Capsule 400 mg PO TID 0RF diphenoxylate-atropine [Lomotil] 2.5-0.025 mg Tablet 1 tab PO BID 0RF metformin 500 mg Tablet Extended Release 24 Hr 1,000 mg PO DAILY 0RF loratadine 10 mg Tablet 10 mg PO DAILY 0RF duloxetine 20 mg Capsule,Delayed Release(Dr/Ec) 20 mg PO BID 0RF doxycycline hyclate 100 mg tablet 100 mg PO BID Qty: 20 0RF multivitamin Tablet 1 tab PO DAILY 0RF sennosides [senna] 8.6 mg Tablet 17.2 mg PO BEDTIME 0RF nitroglycerin [Nitrostat] 0.4 mg Tablet, Sublingual 0.4 mg SUBLINGUAL Q5M PRN (Reason: Chest Pain) 0RF Rx Instructions: do not exceed 3 doses per episode ergocalciferol (vitamin D2) 1,250 mcg (50,000 unit) Capsule 1,250 mcg PO QWEEK 0RF insulin lispro [Humalog U-100 Insulin] 100 unit/mL Solution 30 unit SUBCUT DAILY 0RF metoclopramide HCl 10 mg Tablet 10 mg PO BID PRN (Reason: Spasms) 0RF
[2021-07-15 11:32] LABS: Glucose, Whole Blood 203 mg/dL (60-115)
[2021-07-15] MEDS: 0.9 % Sodium Chloride 1,000 ML 999 ML IV (11:38)
[2021-07-15 11:55] LABS: IDNOW Serial# 08D9AD1C; Influenza A Negative (Negative); Influenza B2 Negative (Negative)
[2021-07-15 12:03] LABS: MANUAL DIFF FLAG NO
[2021-07-15 12:06] LABS: Basophils Percent Auto 0.3 % (0-2); Eosinophils Percent Auto 0.5 % (0-4); Hematocrit 34.4 % (37.0-47.0); Hemoglobin 11.5 g/dl (12.0-16.0); Imm Gran Abs Auto 0.01 X10*3/uL (0.00-0.03); Imm Gran Pct Auto 0.1 % (0.0-0.4); Lymphocytes Absolute Auto 2.4 X10*3/uL (1.2-4.9); Lymphocytes Percent Auto 31.4 % (20-40); Mean Corpuscular HGB Conc 33.4 g/dl (31.0-35.0); Mean Corpuscular Hemoglobin 32.2 pg (27.0-33.0); Mean Corpuscular Volume 96.4 fL (80.0-98.0); Mean Platelet Volume 10.7 fL (9.4-12.3); Monocytes Absolute Auto 0.6 X10*3/uL (0.1-1.2); Monocytes Percent Auto 7.3 % (2-11); Neutrophils Absolute Auto 4.6 x10*3/uL (2.0-8.3); Neutrophils Percent Auto 60.4 % (45-73); Platelet Count 194 X10*3/uL (160-400); Red Blood Count 3.57 X10*6/uL (4.20-5.50); Red Cell Distribution Width 14.8 % (11.0-16.0); White Blood Count 7.5 X10*3/uL (4.8-10.8)
[2021-07-15 12:11] LABS: VBG Base Excess -9.6 mmol/L; VBG HCO3 12 mmol/L (22-26); VBG pCO2 19 mmHg; VBG pH 7.41 (7.32-7.43); VBG pO2 166 mmHg
[2021-07-15 12:12] LABS: Venous Blood Gas Refer to POC result
[2021-07-15 12:16] LABS: COVID-19 Test Negative (Negative); IDNOW Serial# 16C4AD1C
[2021-07-15 12:27] LABS: Acetone, serum QL Small (Negative)
[2021-07-15 12:36] LABS: Alanine Aminotransferase 12 U/L (0-31); Albumin Level 3.8 g/dL (3.5-5.0); Alkaline Phosphatase 67 U/L (39-117); Anion Gap 14 (12-20); Aspartate Amino Transferase 13 U/L (5-31); Bilirubin Total 0.3 mg/dL (0.0-1.0); Blood Urea Nitrogen 10 mg/dL (9-16); Calcium 9.1 mg/dL (8.4-10.2); Carbon Dioxide 17 mmol/L (22-29); Chloride 111 mmol/L (96-108); Estimated Glomerular Filt Rate > 60; Glucose Random 260 mg/dL (60-115); Potassium 4.1 mmol/L (3.3-5.1); Sodium 138 mmol/L (135-145); Total Protein 6.7 g/dL (6.5-8.0)
[2021-07-15 12:39] LABS: Magnesium 1.4 mg/dL (1.6-2.6)
[2021-07-15] MEDS: Magnesium Sulfate/H2O 2 GM/50 ML PIGGYBACK IV (13:12)
[2021-07-15 13:22] LABS: Troponin-I High Sensitivity 5.9 ng/L (<3.5-17.0)
[2021-07-15] MEDS: iohexoL 350 MG/ML 100 ML INFUS..BTL IV (13:50)
--- NOTE | 2021-07-15 14:05 | MHC.CM.ED ---
Addendum entered by Amber Johnson 07/15/21 14:08: Patient is active with [facility] and has RIM ROLLER SETTER's 3 times a day. But no overnight coverage. Original Note: Received telephone call from patient's disease case manager Steffi, at [facility]. She can be reached via telephone at [phone]. She is concerned about patient. Patient has been less compliant with medication, and had decreased PO intake. She is also experiencing increased GI symptoms. There is a question if it is behavioral related. Patient's son recently moved in with her. This has apparently caused some issues with patient's well being. Steffi is afraid patient can't safely return home. CHRISTOFER Singh is aware. Continue to monitor for d/c needs.
--- NOTE | 2021-07-15 16:09 | PHA.MEDREC ---
Pharmacy Consult ? Medication Reconciliation Pharmacy has completed the medication reconciliation. Spoke with [facility] service, they stated that they last visited the patient on 07/14. They faxed me a list of the current medications.
[2021-07-15 16:26] LABS: Troponin-I High Sensitivity 4.6 ng/L (<3.5-17.0)
[2021-07-15] MEDS: ondansetron HCL 4 MG/2 ML VIAL IVPUSH (17:17)
[2021-07-15 20:14] LABS: Glucose, Whole Blood 187 mg/dL (60-115)
[2021-07-15 20:22] LABS: Appearance Urine CLEAR; Color Urine YELLOW; Glucose Urine UA NEG (NEG); Leukocyte Esterase Urine NEG (NEG); Nitrite Urine NEG (NEG); Specific Gravity - Urine 1.015 (1.005-1.025); Urine Blood NEG (NEG); Urine Ketones 40 MG/DL (NEG); Urine Protein NEG (NEG-TRACE)
--- NOTE | 2021-07-15 22:17 | MHC.CM.ED ---
CM met with pt to discuss d/c plan. Pt is able to answer CM questions, but seems a bit vague. Covid Vax J&Jx1 and Moderna x2. HCP on file. HCP/daughter Codie Barger ([phone]). Codie tells CM that her mother suffered a stroke in January and was at [facility] until Apr of this year. States her mother has been a bit vague and she has concerns about her living at home alone. Codie tells CM her mother has 31.25 hour/week days and 14 hours/week/nights from [facility]. Pt does not have overnight hours. Pt is wheelchair bound and BKA. Codie tells CM she has an appointment with [facility] in the morning regarding increasing her mother's CYBER FORENSICS ANALYST hours. Codie feels her mother may need more care, perhaps in LTC, but her mother has been very resistant to living in a facility. Pt also is active with [facility] per Codie. Pt has a geriatric case manager from [facility], Steffi, who has also shared that there are concerns about this patient living alone without overnight care. PT evaluation is pending for the morning. Codie was given CM contact information. Referral to [facility] to follow. No other referrals made pending PT recommendations. CM to follow with Codie and Steffi tomorrow.
[2021-07-15] MEDS: diphenhydrAMINE HCL 50 MG/ML VIAL IVPUSH (22:34)
[2021-07-15] MEDS: Metoclopramide HCl 10 MG/2 ML VIAL IVPUSH (22:35)
[2021-07-16] VITALS (9 sets, daily range): BP systolic 115–145; BP diastolic 48–85; PULSE 72–83; RESP 12–18; TEMP 36.4–36.8; O2SAT 95–100
[2021-07-16 04:16] LABS: Glucose, Whole Blood 157 mg/dL (60-115)
[2021-07-16] MEDS: Gabapentin 400 MG CAPSULE PO ×3 (05:10→14:31)
[2021-07-16] MEDS: Topiramate 100 MG TABLET PO ×2 (05:10→17:22)
[2021-07-16] MEDS: Sennosides 8.6 MG TABLET 17.2 MG PO (05:10)
[2021-07-16] MEDS: ALPRAZolam 0.25 MG TABLET PO ×2 (05:10→14:31)
[2021-07-16] MEDS: Atorvastatin Calcium 80 MG TABLET PO (05:11)
[2021-07-16] MEDS: Promethazine HCL 25 MG TABLET PO ×3 (05:11→14:31)
--- NOTE | 2021-07-16 06:29 | PC.NURSE ---
Hospital bed for comfort, pt able to use bedside commode. Pt reports that her nausea has caused decreased p.o. intake. she stes for the last week, anytime I take a bite of food, it makes me want to throw up.
[2021-07-16 06:30] LABS: Glucose, Whole Blood 154 mg/dL (60-115)
[2021-07-16 09:16] LABS: Glucose, Whole Blood 169 mg/dL (60-115)
[2021-07-16] MEDS: Metoprolol Succinate ER 100 MG TAB.ER.24H PO (10:07)
[2021-07-16] MEDS: Losartan Potassium 50 MG TABLET 100 MG PO (10:07)
[2021-07-16] MEDS: Loratadine 10 MG TABLET PO (10:08)
[2021-07-16] MEDS: Omeprazole 20 MG CAPSULE.DR PO (10:09)
[2021-07-16] MEDS: Isosorbide Mononitrate 30 MG TAB.ER.24H PO (10:09)
[2021-07-16] MEDS: Diphenoxylate/Atrop 2.5/0.025 TABLET 1 TAB PO (10:09)
[2021-07-16] MEDS: metFORMIN HCl ER 500 MG TAB.ER.24H 1000 MG PO (10:10)
--- NOTE | 2021-07-16 10:12 | PC.NURSE ---
Pt alert and oriented, denies pain. Sleepy and given Xanax at 0500, 0900 dose held. Pt awakes to verbal stimuli. Agreeable to banana. POC 169, 30 units Humalog held, Metformin given. VSS. No actue vomiting/diarrhea at this time
[2021-07-16] MEDS: DULoxetine HCl 20 MG CAPSULE.DR PO (10:30)
--- NOTE | 2021-07-16 10:33 | PC.NURSE ---
Seen by PT will recommend home services
[2021-07-16] MEDS: Ergocalciferol (Vitamin D2) 1,250 MCG CAPSULE 1250 MCG PO (11:46)
--- NOTE | 2021-07-16 13:41 | MHC.CM.PN ---
PATIENT WAS SEEN BY PT, RECOMMENDATION IS HOME WITH SERVICES. CM RECEIVED A CALL FROM ORAL[facility] CARMON[facility] MOLECULAR BIOLOGY DIRECTOR WHO REPORTS THEY ARE CONCERNED ABOUT THE PT AND FEEL SHE NEEDS TO BEIN
--- NOTE | 2021-07-16 13:43 | MHC.CM.PN ---
Addendum entered by Em Brito 07/16/21 15:40: PT WILL RETURN HOME TODAY WITH RESUMPTION OF ENGAGEMENT MGR AND [facility] SERVICES FOR SN AND PT ENGAGEMENT MGR WILL MEET HER AT THE HOUSE TO LET HER IN AND HELP HER SETTLE PT WILL BE TRANSPORTED VIA BLS Original Note: PER PT GARCIA, RECOMMENDATION IS HOME WITH [facility]. CM RECEIVED A CALL FROM PTS ICP AURICULOTHERAPIST, MATHEW, WHO REPORTS THEY HAVE CONCERNS THAT THE PT WILL NEED INPATIENT OR STR. CM INFORMED HER OF PT RECOMMENDATIONS AND THAT PT HAS NOT BEEN ADMITTED. SHE REPORTS THEY ARE WORRIED BECAUSE THE PT HAS NO BEEN EATING OR DRINKING WELL AND AT TIMES NOT TAKING HER MEDS. SHE REPORTS THEY ARE ALSO WORRIED THAT THE PT MAY BE DEPRESSED OR STRESSED BECAUSE HER SON HAS BEEN STAYING WITH HER. SHE REPORTS SHE FEELS THE PT MAY NEED TO BE SEEN BY PSYCHIATRY. CM AGREED TO FOLLOW UP ON THESE CONCERNS CM MET WITH PT WHO REPORTS SHE DOES NOT ALWAYS EAT BECAUSE SHE HAS STOMACH ISSUES. SHE REPORTS SHE HAS BEEN DEALING WITH STOMACH PROBLEMS SINCE EARLY TEENS AND HAS ALWAYS HAD TIMES SHE CANNOT EAT/DRINK. PT SHOWS CM HER LUNCH TRAY AND POINTS OUT THAT SHE HAS EATEN AT LEAST 50% OF HER MEAL. SHE REPORTS SOMETIMES SHE CANNOT TAKE HER MEDS FIRST THING IN THE MORNING BECAUSE THEY IRRITATE HER STOMACH IF SHE DOES NOT EAT FIRST. SHE REPORTS SHE IS NOT STRESSED ABOUT HER SON STAYING WITH HER, SHE REPORTS HE CAME THERE TO HELP HER AND SHE IS THANKFUL. SHE REPORTS HE IS NOT LIVING WITH HER BUT IS SPENDING ENOUGH TIME THERE TO PROVIDE NEEDED ASSISTANCE. SHE REPORTS SHE IS NOT INTERESTED IN STR OR PSYCH SHE ALREADY KNOWS WHAT IS WRONG AND NEITHER OF THESE THINGS WOULD HELP. SHE REPORTS STR MAY EVEN MAKE IT WORSE IT IS VERY STRESSFUL FOR HER. SHE REPORTS THE ONLY THING RIGHT NOW CAUSING HER STRESS IS HER ENGAGEMENT MGR AND AURICULOTHERAPIST GETTING HER WORKED UP ABOUT GOING TO LTC. PT REPORTS SHE WILL DC HOME TODAY WITH [facility] RECOMMENDED SHE WILL NEED AN AMBULANCE SHE ALSO REPORTS SHE WILL NEED HER ENGAGEMENT MGR TO MEET HER AT HER HOME. CM CALLED PTS ENGAGEMENT MGR, DANNY [phone] AND INFORMED HER PT WOULD BE RETURNING HOME TODAY. SHE REPORTS SHE HAS A COUPLE OF APPTS BUT COULD BE THERE FOR 1730 HOURS. PT ALSO ASKED THAT CM CALL HER SON, KANNAN [phone]. CM ATTEMPTED TO REACH PTS SON, HOWEVER HIS PHONE WAS OUT OF SERVICE.
--- NOTE | 2021-07-16 17:24 | PC.NURSE ---
pt RR even and unlabored, aox4. Pt denies pain other than baseline pain at this time.
--- NOTE | 2021-07-16 18:16 | PC.NURSE ---
pt asked for this RN to contact delphine José Luis. Attempted to contact, no answer
--- NOTE | 2021-07-16 18:16 | PC.NURSE ---
per pt request this RN attempted to call daughter sarita to update about arriving home via EMS. No answer
--- NOTE | 2021-07-16 18:21 | PC.NURSE ---
This RN spoke to son, son aware pt will be arriving home via EMS and states he will be available to let pt into house when they arrive
--- NOTE | 2021-07-16 20:02 | PC.NURSE ---
pt son notfied that pt will be arriving home with EMS in aproximately 45 minutes. Son states he will be home to let pt into her house
[2021-07-16 20:06] LABS: Glucose, Whole Blood 240 mg/dL (60-115)
== END 2021-07-16 20:22 | disposition home or self-care (01) ==
PROVIDERS: Physician Assistant; Emergency Provider Emergency Medicine; PCP Internal Medicine
DX: R11.2 Nausea with vomiting, unspecified (principal); R10.9 Unspecified abdominal pain; R53.1 Weakness; E83.42 Hypomagnesemia; E11.9 Type 2 diabetes mellitus without complications; I10 Essential (primary) hypertension; I25.10 Atherosclerotic heart disease of native coronary artery without angina pectoris; Z79.4 Long term (current) use of insulin; Z79.899 Other long term (current) drug therapy; Z86.73 Personal history of transient ischemic attack (TIA), and cerebral infarction without residual deficits; Z91.81 History of falling; Z93.1 Gastrostomy status
CPT/HCPCS: 36415; 70450; 74177; 80053; 81003; 82009; 82803; 82947; 83735; 84484; 85025; 87502; 87635; 93005; 96361; 96365; 96366; 96375; 97162; 99285; J1200; J2405; J2765; J3475; Q9967

== ENCOUNTER 2021-07-18 07:35 | Emergency (ER) | payer MEDICAID, SELFPAY ==
--- NOTE | ~2021-07-18 | XR_ITS ---
EXAMINATION: XR CHEST CLINICAL INFORMATION: Weakness COMPARISON: 07/10/2021 TECHNIQUE: Frontal view of the chest was obtained. The chest radiograph is rotated. FINDINGS: The port extends to the mid SVC. The heart is not enlarged. The lungs and pleural spaces are clear. XR/XR chest 1V IMPRESSION: The lungs are clear.
[2021-07-18 07:40] VITALS: BP 119/48; PULSE 75; RESP 18; TEMP 36.4; O2SAT 96; BMI 31.8
--- NOTE | 2021-07-18 07:42 | ED.GENADULT ---
HPI - General Adult General Chief complaint: General Medical Stated complaint: hypoglycemia Time Seen by Provider: 07/18/21 07:42 Source: patient Mode of arrival: EMS Limitations: other (poor historian ) History of Present Illness HPI narrative: found at 20 3 oral glucose with EMS up to 91 patient does not remember her BS before bed, states she ate dinner, son heard her moaning this AM patient states she has been doing well ate well yesterday and actually has been feeling much better overall she took her insulin last night but doesn't remember her BS - she went to bed and remembers the paramedics waking her up this AM MD complaint: hypoglycemia Onset (ago): minute(s) Severity: mild Relieving factors: other (oral glucose tabs) Exacerbating factors: none Associated symptoms: denies other symptoms Treatments prior to arrival: other (oral glucose tabs) Related Data Home Medications Medication Instructions Recorded Confirmed promethazine 25 mg tablet 25 mg PO TID 04/10/20 07/15/21 amitriptyline 50 mg tablet 50 mg PO BEDTIME 05/12/20 07/15/21 atorvastatin 80 mg tablet 80 mg PO BEDTIME 05/12/20 07/15/21 isosorbide mononitrate 30 mg 30 mg PO DAILY 05/12/20 07/15/21 tablet,extended release 24 hr losartan 100 mg tablet 100 mg PO DAILY 05/12/20 07/15/21 metoprolol succinate 100 mg 100 mg PO BID 05/12/20 07/15/21 tablet,extended release 24 hr niacin 1,000 mg tablet,extended 1,000 mg PO BEDTIME 05/12/20 07/15/21 release 24 hr omeprazole 20 mg capsule,delayed 20 mg PO BID 05/12/20 07/15/21 release topiramate 100 mg tablet 100 mg PO DAILY@1700 05/12/20 07/15/21 acetaminophen 325 mg tablet 650 mg PO Q6H PRN 06/29/21 07/15/21 alprazolam 0.25 mg tablet (Xanax) 1 tab PO TID 06/29/21 07/15/21 krawfsclfw-qrrygyqhvfdud-jdyyknyx 1 cap PO TID PRN 06/29/21 07/15/21 50 mg-300 mg-40 mg capsule (Fioricet) diphenoxylate-atropine 2.5 1 tab PO BID 06/29/21 07/15/21 mg-0.025 mg tablet (Lomotil) duloxetine 20 mg capsule,delayed 20 mg PO BID 06/29/21 07/15/21 release gabapentin 400 mg capsule 400 mg PO TID 06/29/21 07/15/21 hydromorphone 2 mg tablet 1 tab PO DAILY PRN 06/29/21 07/15/21 (Dilaudid) loratadine 10 mg tablet 10 mg PO DAILY 06/29/21 07/15/21 metformin 500 mg tablet,extended 1,000 mg PO DAILY 06/29/21 07/15/21 release 24 hr ergocalciferol (vitamin D2) 1,250 1,250 mcg PO QWEEK 07/15/21 07/15/21 mcg (50,000 unit) capsule insulin lispro 100 unit/mL 30 unit SUBCUT DAILY 07/15/21 07/15/21 subcutaneous solution (Humalog U-100 Insulin) metoclopramide HCl 10 mg tablet 10 mg PO BID PRN 07/15/21 07/15/21 multivitamin 1 tab PO DAILY 07/15/21 07/15/21 nitroglycerin 0.4 mg sublingual 0.4 mg SUBLINGUAL Q5M PRN 07/15/21 07/15/21 tablet (Nitrostat) sennosides 8.6 mg tablet (senna) 17.2 mg PO BEDTIME 07/15/21 07/15/21 Previous Rx's Medication Instructions Recorded melatonin 3 mg tablet 6 mg PO BEDTIME #30 tab 02/09/21 doxycycline hyclate 100 mg tablet 100 mg PO BID #20 tab 07/02/21 Allergies Allergy/AdvReac Type Severity Reaction Status Date / Time Penicillins [PENICILLINS] Allergy Mild HIVES Verified 05/25/20 04:33 clarithromycin [From Biaxin] Allergy Unknown HIVES Verified 05/25/20 04:33 penicillin V Allergy Unknown rash, Verified 05/25/20 04:33 throat tight bioxin Allergy Unknown Unknown Uncoded 05/25/20 04:33 penicillin Allergy Unknown Unknown Uncoded 05/25/20 04:33 Review of Systems Review of Systems: Constitutional : No Fever, No Chills, No Fatigue, No Malaise ENT/Mouth : No sore throat, No Rhinorrhea Eyes: No Eye Pain, No Swelling, No Redness Cardiovascular : No Chest Pain, No SOB Respiratory : No Cough, No Sputum, No Wheezing Gastrointestinal : No Nausea, No Vomiting, No Diarrhea, No abdominal Pain Genitourinary : No Dysuria, No Urinary Frequency, No Hematuria, Musculoskeletal : No joint pain, No Myalgias, No Joint Swelling Skin : No Skin Lesions, No rash Neuro : No Weakness, No Numbness, No Dizziness, No Headache Psych : No Anxiety/Panic, No Depression Heme/Lymph: No Bruising, No Bleeding,No Lymphadenopathy Endocrine : No Polyuria, No Polydipsia All other systems reviewed and are negative [facility] Past Medical History Attestation statement: The following information was validated with the patient. Medical History Anxiety Below knee amputation CAD (coronary artery disease) Cholelithiasis Chronic pain syndrome CVA (cerebral vascular accident) Delirium due to another medical condition Depression Diabetic foot ulcer Diabetic neuropathy associated with diabetes mellitus due to underlying condition Encephalopathy acute Gastroparesis History of gastrostomy tube placement History of peptic ulcer disease HTN (hypertension) Hyperglycemia Hypotonic neurogenic bladder IDDM (insulin dependent diabetes mellitus) Liver lesion Myocardial infarction Wheelchair bound Surgical History History of back surgery Hx of BKA Family History Family History Father Coronary arteriosclerosis Social History Social History Household Members: None Housing: Apartment Are you a primary critical care educator to a significant other at home: No Do you presently have visiting nurse or other home services: Yes Unable to assess alcohol history related to: Unable to respond Alcohol intake: never Patient Tobacco Use Status: Never used Tobacco Second Hand Smoke Exposure: No Advance Directives: Yes Advance Directives on File: Yes Advance Directives Date on File: 05/12/20 service: No Current occupational status: unemployed and disabled Physical Exam ED Vital Signs: Vital Signs - 24 hr 07/18/21 07:40 07/18/21 07:48 Temperature 97.6 F 98.9 F Pulse Rate 75 74 Respiratory Rate 18 18 Blood Pressure 119/48 L 114/48 L Pulse Oximetry 96 95 BMI result Body Mass Index 31.8 Appearance: Alert. Oriented X3. No acute distress. Constanza actually looks really well for her usual presentation - much more awake than usual Eyes: Pupils equal, round and reactive to light. ENT: Pharynx normal. Neck: Normal inspection. Neck supple. CVS: Normal heart rate and rhythm. Pulses normal. Respiratory: No respiratory distress. Breath sounds normal. Abdomen: Soft and nontender. Skin: Skin warm and dry. pale skin color. Normal skin turgor. Extremities: No lower extremity edema. No calf ttp Neuro: Oriented X 3. No motor deficit. No sensory deficit. Course Course Course Narrative: will not eat , did drink some juice - unusual has no complaints but does not want to eat or drink discussed with CM she has no abdominal pain n/v she is alert and oriented, she has not been eating at home either - she needs placement at facility given she is high risk and needs monitoring of BS and PO intake, will replete mag and refer to CM, just admitted for same issue trace leuks in urine no WBC count afebrile, neg nitrates no urinary symptoms, + epi cells will hold of abx and follow culture Patient placed in physician observation at 1130am. The indication for observation is that the patient needs more time to see if their hypoglycemia improves and needs CM for placement. At this time the patient is well developed well nourished, lungs clear, CV RRR, abd nontender, neuro is intact. Medical Decision Making [facility] Narrative Medical decision making narrative: 61 yo female with hx of cellulitis, gastroparesis, DM, CAD, stroke, HLD, chronic pain syndrome, HTN, GERD comes in again with low BS - she reports eating well yesterday and having a normal day but was heard moaning by her son. She was found to have a BS of 20 and her EMS gave her 3 oral glucose tabs. Today she looks actually well and states she had a great day yesterday. She is not sure how this could have happened. At this time will obtain basic labs, feed her, UA and CXR. Will discuss with CM about possible increasing services at home. She is not on sulfonylurea from what I can tell of her med list. Lab Data Result diagrams: 07/18/21 09:26 07/18/21 09:26 Labs: Lab Results 07/18/21 07/18/21 07/18/21 Range/Units 07:44 08:04 08:23 WBC (4.8-10.8) X10*3/uL RBC (4.20-5.50) X10*6/uL Hgb (12.0-16.0) g/dl Hct (37.0-47.0) % MCV (80.0-98.0) fL MCH (27.0-33.0) pg MCHC (31.0-35.0) g/dl RDW (11.0-16.0) % Plt Count (160-400) X10*3/uL MPV (9.4-12.3) fL Immature Gran % (Auto) (0.0-0.4) % Neut % (Auto) (45-73) % Lymph % (Auto) (20-40) % [place] % (Auto) (2-11) % Eos % (Auto) (0-4) % Baso % (Auto) (0-2) % Lymph # (Auto) (1.2-4.9) X10*3/uL [place] # (Auto) (0.1-1.2) X10*3/uL Eos # (Auto) (0.0-0.4) X10*3/uL Baso # (Auto) (0.0-0.2) X10*3/uL Abs Immat Gran (auto) (0.00-0.03) X10*3/uL Absolute Neuts (auto) (2.0-8.3) x10*3/uL Absolute Nucleated RBC (0.0-0.012) X10*3/uL Nucleated RBC % (auto) (0.0-0.2) /100WBC Sodium (135-145) mmol/L Potassium (3.3-5.1) mmol/L Chloride (96-108) mmol/L Carbon Dioxide (22-29) mmol/L Anion Gap (12-20) BUN (9-16) mg/dL Creatinine (0.5-1.4) mg/dL Estim Creat Clear Calc Estimated GFR POC Glucose 74 91 86 (60-115) mg/dL Random Glucose (60-115) mg/dL Calcium (8.4-10.2) mg/dL Magnesium (1.6-2.6) mg/dL Total Bilirubin (0.0-1.0) mg/dL Direct Bilirubin (0.0-0.5) mg/dL AST (5-31) U/L ALT (0-31) U/L Alkaline Phosphatase (39-117) U/L Total Protein (6.5-8.0) g/dL Albumin (3.5-5.0) g/dL Urine Color Urine Appearance Urine pH (5.0-8.0) Ur Specific [place] (1.005-1.025) Urine Protein (NEG-TRACE) MG/DL Urine Glucose (UA) (NEG) MG/DL Urine Ketones (NEG) MG/DL Urine Blood (NEG) Urine Nitrite (NEG) Ur Leukocyte Esterase (NEG) Urine RBC (0) /HPF Urine WBC (0-4) /HPF Ur Squamous Epith Cells /LPF Ur Renal Epithelial Cell /LPF Urine Bacteria /LPF 07/18/21 07/18/21 07/18/21 Range/Units 09:04 09:26 09:26 WBC 9.0 (4.8-10.8) X10*3/uL RBC 3.36 L (4.20-5.50) X10*6/uL Hgb 10.8 L (12.0-16.0) g/dl Hct 32.3 L (37.0-47.0) % MCV 96.1 (80.0-98.0) fL MCH 32.1 (27.0-33.0) pg MCHC 33.4 (31.0-35.0) g/dl RDW 15.3 (11.0-16.0) % Plt Count 176 (160-400) X10*3/uL MPV 11.1 (9.4-12.3) fL Immature Gran % (Auto) 0.3 (0.0-0.4) % Neut % (Auto) 69.1 (45-73) % Lymph % (Auto) 22.5 (20-40) % [place] % (Auto) 7.6 (2-11) % Eos % (Auto) 0.4 (0-4) % Baso % (Auto) 0.1 (0-2) % Lymph # (Auto) 2.0 (1.2-4.9) X10*3/uL [place] # (Auto) 0.7 (0.1-1.2) X10*3/uL Eos # (Auto) 0.0 (0.0-0.4) X10*3/uL Baso # (Auto) 0.0 (0.0-0.2) X10*3/uL Abs Immat Gran (auto) 0.03 (0.00-0.03) X10*3/uL Absolute Neuts (auto) 6.2 (2.0-8.3) x10*3/uL Absolute Nucleated RBC 0.000 (0.0-0.012) X10*3/uL Nucleated RBC % (auto) 0.0 (0.0-0.2) /100WBC Sodium 141 (135-145) mmol/L Potassium 3.6 (3.3-5.1) mmol/L Chloride 110 H (96-108) mmol/L Carbon Dioxide 19 L (22-29) mmol/L Anion Gap 16 (12-20) BUN 18 H D (9-16) mg/dL Creatinine 1.09 (0.5-1.4) mg/dL Estim Creat Clear Calc 56.8 Estimated GFR 51 POC Glucose 237 H (60-115) mg/dL Random Glucose 166 H (60-115) mg/dL Calcium 9.9 D (8.4-10.2) mg/dL Magnesium 1.4 L* (1.6-2.6) mg/dL Total Bilirubin 0.2 (0.0-1.0) mg/dL Direct Bilirubin < 0.2 (0.0-0.5) mg/dL AST 13 (5-31) U/L ALT 9 (0-31) U/L Alkaline Phosphatase 71 (39-117) U/L Total Protein 6.6 (6.5-8.0) g/dL Albumin 3.8 (3.5-5.0) g/dL Urine Color Urine Appearance Urine pH (5.0-8.0) Ur Specific [place] (1.005-1.025) Urine Protein (NEG-TRACE) MG/DL Urine Glucose (UA) (NEG) MG/DL Urine Ketones (NEG) MG/DL Urine Blood (NEG) Urine Nitrite (NEG) Ur Leukocyte Esterase (NEG) Urine RBC (0) /HPF Urine WBC (0-4) /HPF Ur Squamous Epith Cells /LPF Ur Renal Epithelial Cell /LPF Urine Bacteria /LPF 07/18/21 07/18/21 07/18/21 Range/Units 09:36 10:52 11:17 WBC (4.8-10.8) X10*3/uL RBC (4.20-5.50) X10*6/uL Hgb (12.0-16.0) g/dl Hct (37.0-47.0) % MCV (80.0-98.0) fL MCH (27.0-33.0) pg MCHC (31.0-35.0) g/dl RDW (11.0-16.0) % Plt Count (160-400) X10*3/uL MPV (9.4-12.3) fL Immature Gran % (Auto) (0.0-0.4) % Neut % (Auto) (45-73) % Lymph % (Auto) (20-40) % [place] % (Auto) (2-11) % Eos % (Auto) (0-4) % Baso % (Auto) (0-2) % Lymph # (Auto) (1.2-4.9) X10*3/uL [place] # (Auto) (0.1-1.2) X10*3/uL Eos # (Auto) (0.0-0.4) X10*3/uL Baso # (Auto) (0.0-0.2) X10*3/uL Abs Immat Gran (auto) (0.00-0.03) X10*3/uL Absolute Neuts (auto) (2.0-8.3) x10*3/uL Absolute Nucleated RBC (0.0-0.012) X10*3/uL Nucleated RBC % (auto) (0.0-0.2) /100WBC Sodium (135-145) mmol/L Potassium (3.3-5.1) mmol/L Chloride (96-108) mmol/L Carbon Dioxide (22-29) mmol/L Anion Gap (12-20) BUN (9-16) mg/dL Creatinine (0.5-1.4) mg/dL Estim Creat Clear Calc Estimated GFR POC Glucose 161 H 177 H (60-115) mg/dL Random Glucose (60-115) mg/dL Calcium (8.4-10.2) mg/dL Magnesium (1.6-2.6) mg/dL Total Bilirubin (0.0-1.0) mg/dL Direct Bilirubin (0.0-0.5) mg/dL AST (5-31) U/L ALT (0-31) U/L Alkaline Phosphatase (39-117) U/L Total Protein (6.5-8.0) g/dL Albumin (3.5-5.0) g/dL Urine Color YELLOW Urine Appearance CLEAR Urine pH 5.0 (5.0-8.0) Ur Specific [place] <= 1.005 (1.005-1.025) Urine Protein NEG (NEG-TRACE) MG/DL Urine Glucose (UA) NEG (NEG) MG/DL Urine Ketones NEG (NEG) MG/DL Urine Blood NEG (NEG) Urine Nitrite NEG (NEG) Ur Leukocyte Esterase TRACE H (NEG) Urine RBC 1-4 (0) /HPF Urine WBC 5-9 H (0-4) /HPF Ur Squamous Epith Cells 2+ /LPF Ur Renal Epithelial Cell 1+ /LPF Urine Bacteria TRACE /LPF Discharge Plan Discharge Clinical Impression: Hypoglycemia, Hypomagnesemia Patient Disposition: Still a Patient Prescriptions: No Action promethazine 25 mg Tablet 25 mg PO TID 0RF atorvastatin 80 mg Tablet 80 mg PO BEDTIME 0RF isosorbide mononitrate 30 mg Tablet Extended Release 24 Hr 30 mg PO DAILY 0RF metoprolol succinate 100 mg Tablet Extended Release 24 Hr 100 mg PO BID 0RF amitriptyline 50 mg Tablet 50 mg PO BEDTIME 0RF omeprazole 20 mg Capsule,Delayed Release(Dr/Ec) 20 mg PO BID 0RF topiramate 100 mg Tablet 100 mg PO DAILY@1700 0RF losartan 100 mg Tablet 100 mg PO DAILY 0RF niacin 1,000 mg Tablet Extended Release 24 Hr 1,000 mg PO BEDTIME 0RF melatonin 3 mg Tablet 6 mg PO BEDTIME Qty: 30 0RF hydromorphone [Dilaudid] 2 mg tablet 1 tab PO DAILY PRN (Reason: pain) 0RF alprazolam [Xanax] 0.25 mg tablet 1 tab PO TID 0RF oduxraabxu-ukztkfdmeabec-qqwg [Fioricet] 50-300-40 mg capsule 1 cap PO TID PRN (Reason: migraine) 0RF acetaminophen 325 mg Tablet 650 mg PO Q6H PRN (Reason: Pain) 0RF gabapentin 400 mg Capsule 400 mg PO TID 0RF diphenoxylate-atropine [Lomotil] 2.5-0.025 mg Tablet 1 tab PO BID 0RF metformin 500 mg Tablet Extended Release 24 Hr 1,000 mg PO DAILY 0RF loratadine 10 mg Tablet 10 mg PO DAILY 0RF duloxetine 20 mg Capsule,Delayed Release(Dr/Ec) 20 mg PO BID 0RF doxycycline hyclate 100 mg tablet 100 mg PO BID Qty: 20 0RF multivitamin Tablet 1 tab PO DAILY 0RF sennosides [senna] 8.6 mg Tablet 17.2 mg PO BEDTIME 0RF nitroglycerin [Nitrostat] 0.4 mg Tablet, Sublingual 0.4 mg SUBLINGUAL Q5M PRN (Reason: Chest Pain) 0RF Rx Instructions: do not exceed 3 doses per episode ergocalciferol (vitamin D2) 1,250 mcg (50,000 unit) Capsule 1,250 mcg PO QWEEK 0RF insulin lispro [Humalog U-100 Insulin] 100 unit/mL Solution 30 unit SUBCUT DAILY 0RF metoclopramide HCl 10 mg Tablet 10 mg PO BID PRN (Reason: Spasms) 0RF
[2021-07-18 07:48] VITALS: BP 114/48; PULSE 74; RESP 18; TEMP 37.2; O2SAT 95
[2021-07-18] MEDS: Dextrose 50 % 25 GM/50 ML SYRINGE IVPUSH (09:00)
[2021-07-18 09:40] LABS: Glucose, Whole Blood 86 mg/dL (60-115)
[2021-07-18 09:40] LABS: Glucose, Whole Blood 237 mg/dL (60-115)
[2021-07-18 09:40] LABS: Glucose, Whole Blood 161 mg/dL (60-115)
[2021-07-18 09:40] LABS: Glucose, Whole Blood 91 mg/dL (60-115)
[2021-07-18 09:40] LABS: Glucose, Whole Blood 74 mg/dL (60-115)
[2021-07-18 10:21] LABS: MANUAL DIFF FLAG NO
[2021-07-18 10:22] LABS: Basophils Percent Auto 0.1 % (0-2); Eosinophils Percent Auto 0.4 % (0-4); Hematocrit 32.3 % (37.0-47.0); Hemoglobin 10.8 g/dl (12.0-16.0); Imm Gran Abs Auto 0.03 X10*3/uL (0.00-0.03); Imm Gran Pct Auto 0.3 % (0.0-0.4); Lymphocytes Percent Auto 22.5 % (20-40); Mean Corpuscular HGB Conc 33.4 g/dl (31.0-35.0); Mean Corpuscular Hemoglobin 32.1 pg (27.0-33.0); Mean Corpuscular Volume 96.1 fL (80.0-98.0); Mean Platelet Volume 11.1 fL (9.4-12.3); Monocytes Absolute Auto 0.7 X10*3/uL (0.1-1.2); Monocytes Percent Auto 7.6 % (2-11); Neutrophils Absolute Auto 6.2 x10*3/uL (2.0-8.3); Neutrophils Percent Auto 69.1 % (45-73); Platelet Count 176 X10*3/uL (160-400); Red Blood Count 3.36 X10*6/uL (4.20-5.50); Red Cell Distribution Width 15.3 % (11.0-16.0)
[2021-07-18 10:58] LABS: Appearance Urine CLEAR; Color Urine YELLOW; Glucose Urine UA NEG (NEG); Leukocyte Esterase Urine TRACE (NEG); Nitrite Urine NEG (NEG); Specific Gravity - Urine <= 1.005 (1.005-1.025); Urine Blood NEG (NEG); Urine Ketones NEG (NEG); Urine Protein NEG (NEG-TRACE)
[2021-07-18 11:11] LABS: Alanine Aminotransferase 9 U/L (0-31); Albumin Level 3.8 g/dL (3.5-5.0); Alkaline Phosphatase 71 U/L (39-117); Anion Gap 16 (12-20); Aspartate Amino Transferase 13 U/L (5-31); Bilirubin Direct < 0.2 mg/dL (0.0-0.5); Bilirubin Total 0.2 mg/dL (0.0-1.0); Blood Urea Nitrogen 18 mg/dL (9-16); Calcium 9.9 mg/dL (8.4-10.2); Carbon Dioxide 19 mmol/L (22-29); Chloride 110 mmol/L (96-108); Creatinine Clr Calc Pharmacy 56.8; Estimated Glomerular Filt Rate 51; Glucose Random 166 mg/dL (60-115); Magnesium 1.4 mg/dL (1.6-2.6); Potassium 3.6 mmol/L (3.3-5.1); Sodium 141 mmol/L (135-145); Total Protein 6.6 g/dL (6.5-8.0)
[2021-07-18 11:20] LABS: Glucose, Whole Blood 177 mg/dL (60-115)
[2021-07-18 11:24] LABS: Bacteria Urine TRACE /LPF; Renal Epithelial Cells Urine 1+ /LPF; Squamous Epithelial Cell Urine 2+ /LPF
[2021-07-18] MEDS: Magnesium Sulfate/H2O 2 GM/50 ML PIGGYBACK IV (11:39)
[2021-07-18 12:01] LABS: IDNOW Serial# 16C4AD1C; Influenza A Negative (Negative); Influenza B2 Negative (Negative)
[2021-07-18 12:05] LABS: COVID-19 Test Negative (Negative); IDNOW Serial# 55D5AD1C
[2021-07-18 12:42] LABS: Glucose, Whole Blood 238 mg/dL (60-115)
--- NOTE | 2021-07-18 13:50 | PHA.MEDREC ---
Pharmacy Consult ? Medication Reconciliation Pharmacy has completed the medication reconciliation. No remarkable issues. Henny Vo, AilinD
--- NOTE | 2021-07-18 14:23 | MHC.CM.ED ---
Received case management consult from Dr Flood. Patient came to the ER due to hypoglycemia. Patient hasn't been eating or taking her medication appropriately. Dr Flood doesn't feel patient can safely return home. PT eval is pending. Attempted to meet with patient. Patient is currently drowsy at this time. Spoke with patient's HCP/daughter, Codie via telephone at [phone]. Codie agrees that short term rehab is needed. List of facilities sent to Codie via email from [employer]. Codie aware physical therapy eval is pending. Codie is also aware is patient becomes more alert and oriented, patient could potentially refuse to go to short term rehab. Codie verbalizes understanding. Continue to monitor for d/c needs.
[2021-07-18] MEDS: ALPRAZolam 0.25 MG TABLET PO ×2 (14:55→21:06)
[2021-07-18] MEDS: Gabapentin 400 MG CAPSULE PO ×2 (15:48→21:06)
[2021-07-18 16:09] VITALS: BP 104/63; PULSE 75; RESP 17; TEMP 37; O2SAT 97
[2021-07-18] MEDS: Omeprazole 20 MG CAPSULE.DR PO (16:23)
[2021-07-18 16:47] LABS: Glucose, Whole Blood 221 mg/dL (60-115)
[2021-07-18] MEDS: Melatonin 3 MG TABLET 6 MG PO (21:05)
[2021-07-18] MEDS: Sennosides 8.6 MG TABLET 17.2 MG PO (21:06)
[2021-07-18] MEDS: Diphenoxylate/Atrop 2.5/0.025 TABLET 1 TAB PO (21:06)
[2021-07-18] MEDS: Atorvastatin Calcium 80 MG TABLET PO (21:06)
[2021-07-18 21:24] LABS: Glucose, Whole Blood 324 mg/dL (60-115)
[2021-07-18] MEDS: Amitriptyline HCl 50 MG TABLET PO (21:51)
[2021-07-18] MEDS: DULoxetine HCl 20 MG CAPSULE.DR PO (21:51)
[2021-07-18] MEDS: Insulin Lispro 100 UNIT/ML 3 ML VIAL SUBCUT (21:55)
[2021-07-19 01:04] VITALS: BP 123/56; PULSE 66; RESP 14; TEMP 36.4; O2SAT 97
--- NOTE | 2021-07-19 06:26 | PC.NURSE ---
Pt sleeping in bed in NAD @ this time, wakes easily to verbal stimuli, denies pain. Pt noted to be clean/dry @ this time. Continue to monitor.
[2021-07-19 06:27] VITALS: PULSE 64; RESP 16; O2SAT 96
[2021-07-19 07:25] LABS: Glucose, Whole Blood 225 mg/dL (60-115)
--- NOTE | 2021-07-19 07:56 | MHC.CM.PN ---
Patient remains in ER. PT eval is still pending. Patient's daughter/HCP, Codie, responded in [facility] with facility choices: 1) [facility] 2) [facility] 3)[facility] 4) [facility] 5)[facility]. Referrals made via [facility]. Continue to monitor for d/c needs.
[2021-07-19] MEDS: Multivitamin TABLET 1 TAB PO (08:00)
[2021-07-19] MEDS: Diphenoxylate/Atrop 2.5/0.025 TABLET 1 TAB PO (08:00)
[2021-07-19] MEDS: Omeprazole 20 MG CAPSULE.DR PO (08:00)
[2021-07-19] MEDS: Gabapentin 400 MG CAPSULE PO ×2 (08:00→14:27)
[2021-07-19] MEDS: Loratadine 10 MG TABLET PO (08:01)
[2021-07-19] MEDS: DULoxetine HCl 20 MG CAPSULE.DR PO (08:01)
[2021-07-19] MEDS: ALPRAZolam 0.25 MG TABLET PO ×2 (08:01→14:27)
[2021-07-19] MEDS: Insulin Lispro 100 UNIT/ML 3 ML VIAL SUBCUT ×2 (08:02→13:43)
--- NOTE | 2021-07-19 08:06 | PC.NURSE ---
Pt alert/oriented. Seen by PT this morning. Denies pain. Accepted AM meds, insulin per [facility].
--- NOTE | 2021-07-19 09:05 | MHC.CM.ED ---
Physical therapy eval completed. Doesn't feel STR is needed for rehab. Patient is still wifty at times and there is concern from daughter/HCP Tulio Mackay, and T/W in regards to patient returning home at this time. Will try to obtain placement for senior living care. [facility] doesn't pay for rehab. Continue to monitor for d/c needs.
--- NOTE | 2021-07-19 10:26 | MHC.CM.ED ---
Received telephone call from Steffi of [facility]. She is a hemodialysis patient care specialist for patient. Steffi is concerned about patient returning home again. T/W explained STR is being pursued. Steffi is requesting a telephone call at [phone] when a discharge plan is made. Continue to monitor for d/c needs.
[2021-07-19 12:41] LABS: Glucose, Whole Blood 294 mg/dL (60-115)
--- NOTE | 2021-07-19 14:36 | MHC.CM.ED ---
Met with pt to review d/c plan. Pt states under no circumstances will she transfer to [facility]. Discussed pt's need for medications, nutritional support and care assistance to which pt acknowledged and verbalized understanding but states she has a OFFLINE CUTTER and is trying to get additional services. Call placed to pt's ICP through Steffi SHANNON: message left. Call placed to pt's dtr, Codie who states she has been trying for 5 years to assist pt with health management but pt is not receptive. Pt's son José Luis has been staying with pt to assist with the overnights. Codie states they have a meeting tomorrow afternoon with Stephan to get more hours for pt including José Luis for the overnights. Per Codie, José Luis is not allowed to stay with pt as she resides in elderly housing. Codie notes other family/social dynamic issues that unfortunately, CM cannot assist with. Pt is declining all services at this time and is insistent on a return to home. Codie will contact pt's OFFLINE CUTTER Hung Bray to meet her at and assist with pm routine. Will arrange for BLS transport at pt has been weak and is impulsive at times and unaware of fall potential
[2021-07-19 15:13] VITALS: BP 111/43; PULSE 84; RESP 14; TEMP 36.7; O2SAT 98
[2021-07-19 16:19] LABS: Glucose, Whole Blood 294 mg/dL (60-115)
--- NOTE | 2021-07-19 16:38 | MHC.CM.ED ---
Pt is A&Ox3. Refusing STR or [facility] care. Wants to go home. Ambulance here for transport. Message left with daughter, Codie. CM spoke with Steffi, her congregational care pastor, who expresses concerns about her going home. Explained to Steffi that CM has no concerns about her capacity and that her nurse also has no concerns about her capacity, so we cannot force her to go to a halfway. Pt has FLORAL [employer]IST services from [employer], [employer] and family assistance. Steffi stated her agency will see patient this week.
[2021-07-21 12:17] LABS: Prolactin 4.8 ng/mL
== END 2021-07-19 16:28 | disposition home or self-care (01) ==
PROVIDERS: Emergency Provider Emergency Medicine; PCP Internal Medicine
DX: E11.649 Type 2 diabetes mellitus with hypoglycemia without coma (principal); E83.42 Hypomagnesemia; I10 Essential (primary) hypertension; I25.10 Atherosclerotic heart disease of native coronary artery without angina pectoris; I25.2 Old myocardial infarction; Z86.73 Personal history of transient ischemic attack (TIA), and cerebral infarction without residual deficits; Z99.3 Dependence on wheelchair; Z20.822 Contact with and (suspected) exposure to COVID-19
CPT/HCPCS: 36415; 71045; 80048; 80076; 81001; 81003; 82947; 83735; 84146; 85025; 87502; 87635; 96365; 96366; 96375; 97161; 99284; J3475

== ENCOUNTER 2021-07-21 10:05 | Emergency (ER) | payer MEDICAID, SELFPAY ==
[2021-07-21] VITALS (7 sets, daily range): BP systolic 130–155; BP diastolic 56–76; PULSE 73–85; RESP 12–17; TEMP 36.6–37.1; O2SAT 96–98; BMI 28.3
--- NOTE | 2021-07-21 10:10 | ED_ITS ---
HPI - General Adult General Chief complaint: General Medical Stated complaint: ELEVATED BS 375,FTT, NON MED COMPLIANT PER EMS Time Seen by Provider: 07/21/21 10:10 Source: patient and old records reviewed Mode of arrival: EMS Limitations: no limitations History of Present Illness HPI narrative: offered rehab 07/18 for inability to manage her diabetes refused at that time went home not able to take care of herself and is scared to take her medications. MD complaint: not eating, not taking meds, scared to take insulin Onset (ago): day(s) (3) Severity: moderate Relieving factors: none Exacerbating factors: none Associated symptoms: other (afraid to eat or take medications, aware she cannot care for herself at this time) Treatments prior to arrival: none Related Data Home Medications Medication Instructions Recorded Confirmed promethazine 25 mg tablet 25 mg PO TID 04/10/20 07/18/21 amitriptyline 50 mg tablet 50 mg PO BEDTIME 05/12/20 07/18/21 atorvastatin 80 mg tablet 80 mg PO BEDTIME 05/12/20 07/18/21 isosorbide mononitrate 30 mg 30 mg PO DAILY 05/12/20 07/18/21 tablet,extended release 24 hr losartan 100 mg tablet 100 mg PO DAILY 05/12/20 07/18/21 metoprolol succinate 100 mg 100 mg PO BID 05/12/20 07/18/21 tablet,extended release 24 hr niacin 1,000 mg tablet,extended 1,000 mg PO BEDTIME 05/12/20 07/18/21 release 24 hr omeprazole 20 mg capsule,delayed 20 mg PO BID 05/12/20 07/18/21 release topiramate 100 mg tablet 100 mg PO DAILY@1700 05/12/20 07/18/21 acetaminophen 325 mg tablet 650 mg PO Q6H PRN 06/29/21 07/18/21 alprazolam 0.25 mg tablet (Xanax) 1 tab PO TID 06/29/21 07/18/21 lbzbwtbsmt-nthyndreipnld-sanjfpfw 1 cap PO TID PRN 06/29/21 07/18/21 50 mg-300 mg-40 mg capsule (Fioricet) diphenoxylate-atropine 2.5 1 tab PO BID 06/29/21 07/18/21 mg-0.025 mg tablet (Lomotil) duloxetine 20 mg capsule,delayed 20 mg PO BID 06/29/21 07/18/21 release gabapentin 400 mg capsule 400 mg PO TID 06/29/21 07/18/21 hydromorphone 2 mg tablet 1 tab PO DAILY PRN 06/29/21 07/18/21 (Dilaudid) loratadine 10 mg tablet 10 mg PO DAILY 06/29/21 07/18/21 metformin 500 mg tablet,extended 1,000 mg PO DAILY 06/29/21 07/18/21 release 24 hr ergocalciferol (vitamin D2) 1,250 1,250 mcg PO QWEEK 07/15/21 07/18/21 mcg (50,000 unit) capsule insulin lispro 100 unit/mL 30 unit SUBCUT DAILY 07/15/21 07/18/21 subcutaneous solution (Humalog U-100 Insulin) metoclopramide HCl 10 mg tablet 10 mg PO BID PRN 07/15/21 07/18/21 multivitamin 1 tab PO DAILY 07/15/21 07/18/21 nitroglycerin 0.4 mg sublingual 0.4 mg SUBLINGUAL Q5M PRN 07/15/21 07/18/21 tablet (Nitrostat) sennosides 8.6 mg tablet (senna) 17.2 mg PO BEDTIME 07/15/21 07/18/21 Previous Rx's Medication Instructions Recorded melatonin 3 mg tablet 6 mg PO BEDTIME #30 tab 02/09/21 doxycycline hyclate 100 mg tablet 100 mg PO BID #20 tab 07/02/21 magnesium oxide 400 mg PO DAILY #14 tab 07/19/21 Allergies Allergy/AdvReac Type Severity Reaction Status Date / Time Penicillins [PENICILLINS] Allergy Mild HIVES Verified 05/25/20 04:33 clarithromycin [From Biaxin] Allergy Unknown HIVES Verified 05/25/20 04:33 penicillin V Allergy Unknown rash, Verified 05/25/20 04:33 throat tight bioxin Allergy Unknown Unknown Uncoded 05/25/20 04:33 penicillin Allergy Unknown Unknown Uncoded 05/25/20 04:33 Review of Systems Review of Systems: Constitutional : No Weight loss, No Fever, No Chills, No Fatigue, No Malaise, pos anorexia ENT/Mouth : No sore throat, No Rhinorrhea Eyes: No Eye Pain, No Swelling, No Redness Cardiovascular : No Chest Pain, No SOB, No Dyspnea on Exertion, No Orthopnea, No Edema, No Palpitations Respiratory : No Cough, No Sputum, No Wheezing Gastrointestinal : No Nausea, No Vomiting, No Diarrhea, No Constipation, No abdominal Pain, No Hematochezia, No Melena Genitourinary : No Dysuria, No Urinary Frequency, No Hematuria, Musculoskeletal : No joint pain, No Myalgias, No Joint Swelling Skin : No Skin Lesions, No rash Neuro : No Weakness, No Numbness, No Dizziness, No Headache Psych : No Anxiety/Panic, No Depression Heme/Lymph: No Bruising, No Bleeding,No Lymphadenopathy Endocrine : No Polyuria, No Polydipsia All other systems reviewed and are negative [facility] Past Medical History Attestation statement: The following information was validated with the patient. Medical History Anxiety Below knee amputation CAD (coronary artery disease) Cholelithiasis Chronic pain syndrome CVA (cerebral vascular accident) Delirium due to another medical condition Depression Diabetic foot ulcer Diabetic neuropathy associated with diabetes mellitus due to underlying condition Encephalopathy acute Gastroparesis History of gastrostomy tube placement History of peptic ulcer disease HTN (hypertension) Hyperglycemia Hypotonic neurogenic bladder IDDM (insulin dependent diabetes mellitus) Liver lesion Myocardial infarction Wheelchair bound Surgical History History of back surgery Hx of BKA Family History Family History Father Coronary arteriosclerosis Social History Social History Household Members: None Housing: Apartment Are you a primary family day carer to a significant other at home: No Do you presently have visiting nurse or other home services: Yes Unable to assess alcohol history related to: Unable to respond Alcohol intake: never Patient Tobacco Use Status: Never used Tobacco Second Hand Smoke Exposure: No Advance Directives: Yes Advance Directives on File: Yes Advance Directives Date on File: 05/12/20 Patient : No service: No Current occupational status: unemployed and disabled Physical Exam ED Vital Signs: Vital Signs - 24 hr 07/21/21 10:12 07/21/21 12:23 Temperature 98 F 98.7 F Pulse Rate 75 73 Respiratory Rate 17 12 Blood Pressure 155/60 H 130/56 L Pulse Oximetry 97 98 BMI result Body Mass Index 28.3 Appearance: Alert. Oriented X3. No acute distress. Flat affect Eyes: Pupils equal, round and reactive to light. ENT: Pharynx normal. Neck: Normal inspection. Neck supple. CVS: Normal heart rate and rhythm. Pulses normal. Respiratory: No respiratory distress. Breath sounds normal. Abdomen: Soft and non-tender. Skin: Skin warm and dry. pale skin color. Normal skin turgor. Extremities: No lower extremity edema. No calf ttp Neuro: Oriented X 3. No motor deficit. No sensory deficit. Course Course Course Narrative: Patient placed in physician observation at 1230pm. The indication for observation is that the patient needs more time to find placement with CM At this time the patient is well developed well nourished, lungs clear, CV RRR, abd nontender, neuro is intact. at this time medically cleared SubQ insulin ordered. Medical Decision Making [facility] Narrative Medical decision making narrative: 61 yo female with complicated PMH here with hx of DM, gastroparesis with gastric stimulator, HTN, HLD, CAD, here recently on 07/18 with hypoglycemia due to not checking blood sugars, poor PO intake, offered rehab at home at this time will need basic labs, possible SQ insulin and given her complaints of being not able to take care of herself, scared to medicate herself will involve CM. Lab Data Result diagrams: 07/21/21 11:18 07/21/21 11:18 Labs: Lab Results 07/21/21 07/21/21 07/21/21 Range/Units 11:18 11:18 11:18 WBC 8.1 (4.8-10.8) X10*3/uL RBC 3.68 L (4.20-5.50) X10*6/uL Hgb 11.9 L (12.0-16.0) g/dl Hct 34.3 L (37.0-47.0) % MCV 93.2 (80.0-98.0) fL MCH 32.3 (27.0-33.0) pg MCHC 34.7 (31.0-35.0) g/dl RDW 14.7 (11.0-16.0) % Plt Count 128 L D (160-400) X10*3/uL MPV 12.0 (9.4-12.3) fL Immature Gran % (Auto) 0.4 (0.0-0.4) % Neut % (Auto) 65.6 (45-73) % Lymph % (Auto) 26.2 (20-40) % [place] % (Auto) 6.9 (2-11) % Eos % (Auto) 0.7 (0-4) % Baso % (Auto) 0.2 (0-2) % Lymph # (Auto) 2.1 (1.2-4.9) X10*3/uL [place] # (Auto) 0.6 (0.1-1.2) X10*3/uL Eos # (Auto) 0.1 (0.0-0.4) X10*3/uL Baso # (Auto) 0.0 (0.0-0.2) X10*3/uL Abs Immat Gran (auto) 0.03 (0.00-0.03) X10*3/uL Absolute Neuts (auto) 5.3 (2.0-8.3) x10*3/uL Absolute Nucleated RBC 0.000 (0.0-0.012) X10*3/uL Nucleated RBC % (auto) 0.0 (0.0-0.2) /100WBC Smear Tech's Comments VERIFIED Sodium 137 (135-145) mmol/L Potassium 4.9 D (3.3-5.1) mmol/L Chloride 108 (96-108) mmol/L Carbon Dioxide 19 L (22-29) mmol/L Anion Gap 15 (12-20) BUN 9 (9-16) mg/dL Creatinine 0.77 (0.5-1.4) mg/dL Estim Creat Clear Calc 76.0 Estimated GFR > 60 Random Glucose 367 H* (60-115) mg/dL Calcium 9.2 D (8.4-10.2) mg/dL Magnesium 1.5 L (1.6-2.6) mg/dL Total Bilirubin 0.4 (0.0-1.0) mg/dL Direct Bilirubin < 0.2 (0.0-0.5) mg/dL AST 16 (5-31) U/L ALT 7 (0-31) U/L Alkaline Phosphatase 67 (39-117) U/L Total Protein 6.7 (6.5-8.0) g/dL Albumin 3.7 (3.5-5.0) g/dL Urine Color Urine Appearance Urine pH (5.0-8.0) Ur Specific [place] (1.005-1.025) Urine Protein (NEG-TRACE) MG/DL Urine Glucose (UA) (NEG) MG/DL Urine Ketones (NEG) MG/DL Urine Blood (NEG) Urine Nitrite (NEG) Ur Leukocyte Esterase (NEG) COVID-19 (TA) Negative (Negative) COVID-19 Clin Com See Note 07/21/21 Range/Units 12:12 WBC (4.8-10.8) X10*3/uL RBC (4.20-5.50) X10*6/uL Hgb (12.0-16.0) g/dl Hct (37.0-47.0) % MCV (80.0-98.0) fL MCH (27.0-33.0) pg MCHC (31.0-35.0) g/dl RDW (11.0-16.0) % Plt Count (160-400) X10*3/uL MPV (9.4-12.3) fL Immature Gran % (Auto) (0.0-0.4) % Neut % (Auto) (45-73) % Lymph % (Auto) (20-40) % [place] % (Auto) (2-11) % Eos % (Auto) (0-4) % Baso % (Auto) (0-2) % Lymph # (Auto) (1.2-4.9) X10*3/uL [place] # (Auto) (0.1-1.2) X10*3/uL Eos # (Auto) (0.0-0.4) X10*3/uL Baso # (Auto) (0.0-0.2) X10*3/uL Abs Immat Gran (auto) (0.00-0.03) X10*3/uL Absolute Neuts (auto) (2.0-8.3) x10*3/uL Absolute Nucleated RBC (0.0-0.012) X10*3/uL Nucleated RBC % (auto) (0.0-0.2) /100WBC Smear Tech's Comments Sodium (135-145) mmol/L Potassium (3.3-5.1) mmol/L Chloride (96-108) mmol/L Carbon Dioxide (22-29) mmol/L Anion Gap (12-20) BUN (9-16) mg/dL Creatinine (0.5-1.4) mg/dL Estim Creat Clear Calc Estimated GFR Random Glucose (60-115) mg/dL Calcium (8.4-10.2) mg/dL Magnesium (1.6-2.6) mg/dL Total Bilirubin (0.0-1.0) mg/dL Direct Bilirubin (0.0-0.5) mg/dL AST (5-31) U/L ALT (0-31) U/L Alkaline Phosphatase (39-117) U/L Total Protein (6.5-8.0) g/dL Albumin (3.5-5.0) g/dL Urine Color YELLOW Urine Appearance CLEAR Urine pH 7.0 (5.0-8.0) Ur Specific [place] 1.010 (1.005-1.025) Urine Protein NEG (NEG-TRACE) MG/DL Urine Glucose (UA) >=1000 H (NEG) MG/DL Urine Ketones NEG (NEG) MG/DL Urine Blood NEG (NEG) Urine Nitrite NEG (NEG) Ur Leukocyte Esterase NEG (NEG) COVID-19 (TA) (Negative) COVID-19 Clin Com Discharge Plan Discharge Clinical Impression: Acute hyperglycemia, Hypomagnesemia Patient Disposition: Still a Patient Prescriptions: No Action promethazine 25 mg Tablet 25 mg PO TID 0RF atorvastatin 80 mg Tablet 80 mg PO BEDTIME 0RF isosorbide mononitrate 30 mg Tablet Extended Release 24 Hr 30 mg PO DAILY 0RF metoprolol succinate 100 mg Tablet Extended Release 24 Hr 100 mg PO BID 0RF amitriptyline 50 mg Tablet 50 mg PO BEDTIME 0RF omeprazole 20 mg Capsule,Delayed Release(Dr/Ec) 20 mg PO BID 0RF topiramate 100 mg Tablet 100 mg PO DAILY@1700 0RF losartan 100 mg Tablet 100 mg PO DAILY 0RF niacin 1,000 mg Tablet Extended Release 24 Hr 1,000 mg PO BEDTIME 0RF melatonin 3 mg Tablet 6 mg PO BEDTIME Qty: 30 0RF hydromorphone [Dilaudid] 2 mg tablet 1 tab PO DAILY PRN (Reason: pain) 0RF alprazolam [Xanax] 0.25 mg tablet 1 tab PO TID 0RF tieydtcyjy-qygqlxioyekkq-gabd [Fioricet] 50-300-40 mg capsule 1 cap PO TID PRN (Reason: migraine) 0RF acetaminophen 325 mg Tablet 650 mg PO Q6H PRN (Reason: Pain) 0RF gabapentin 400 mg Capsule 400 mg PO TID 0RF diphenoxylate-atropine [Lomotil] 2.5-0.025 mg Tablet 1 tab PO BID 0RF metformin 500 mg Tablet Extended Release 24 Hr 1,000 mg PO DAILY 0RF loratadine 10 mg Tablet 10 mg PO DAILY 0RF duloxetine 20 mg Capsule,Delayed Release(Dr/Ec) 20 mg PO BID 0RF doxycycline hyclate 100 mg tablet 100 mg PO BID Qty: 20 0RF multivitamin Tablet 1 tab PO DAILY 0RF sennosides [senna] 8.6 mg Tablet 17.2 mg PO BEDTIME 0RF nitroglycerin [Nitrostat] 0.4 mg Tablet, Sublingual 0.4 mg SUBLINGUAL Q5M PRN (Reason: Chest Pain) 0RF Rx Instructions: do not exceed 3 doses per episode ergocalciferol (vitamin D2) 1,250 mcg (50,000 unit) Capsule 1,250 mcg PO QWEEK 0RF insulin lispro [Humalog U-100 Insulin] 100 unit/mL Solution 30 unit SUBCUT DAILY 0RF metoclopramide HCl 10 mg Tablet 10 mg PO BID PRN (Reason: Spasms) 0RF magnesium oxide 400 mg magnesium tablet 400 mg PO DAILY Qty: 14 0RF
[2021-07-21 11:38] LABS: Basophils Percent Auto 0.2 % (0-2); Eosinophils Absolute Auto 0.1 X10*3/uL (0.0-0.4); Eosinophils Percent Auto 0.7 % (0-4); Hematocrit 34.3 % (37.0-47.0); Hemoglobin 11.9 g/dl (12.0-16.0); Imm Gran Abs Auto 0.03 X10*3/uL (0.00-0.03); Imm Gran Pct Auto 0.4 % (0.0-0.4); Lymphocytes Absolute Auto 2.1 X10*3/uL (1.2-4.9); Lymphocytes Percent Auto 26.2 % (20-40); MANUAL DIFF FLAG SCAN; Mean Corpuscular HGB Conc 34.7 g/dl (31.0-35.0); Mean Corpuscular Hemoglobin 32.3 pg (27.0-33.0); Mean Corpuscular Volume 93.2 fL (80.0-98.0); Monocytes Absolute Auto 0.6 X10*3/uL (0.1-1.2); Monocytes Percent Auto 6.9 % (2-11); Neutrophils Absolute Auto 5.3 x10*3/uL (2.0-8.3); Neutrophils Percent Auto 65.6 % (45-73); PLT CLUMP 1; Red Blood Count 3.68 X10*6/uL (4.20-5.50); Red Cell Distribution Width 14.7 % (11.0-16.0); SCAN SMEAR FLAG 1
[2021-07-21 11:49] LABS: COVID-19 Test Negative (Negative); IDNOW Serial# 55D5AD1C
[2021-07-21 11:59] LABS: White Blood Count 8.1 X10*3/uL (4.8-10.8)
[2021-07-21 12:00] LABS: Alanine Aminotransferase 7 U/L (0-31); Albumin Level 3.7 g/dL (3.5-5.0); Alkaline Phosphatase 67 U/L (39-117); Anion Gap 15 (12-20); Aspartate Amino Transferase 16 U/L (5-31); Bilirubin Direct < 0.2 mg/dL (0.0-0.5); Bilirubin Total 0.4 mg/dL (0.0-1.0); Blood Urea Nitrogen 9 mg/dL (9-16); Calcium 9.2 mg/dL (8.4-10.2); Carbon Dioxide 19 mmol/L (22-29); Chloride 108 mmol/L (96-108); Estimated Glomerular Filt Rate > 60; Glucose Random 367 mg/dL (60-115); Magnesium 1.5 mg/dL (1.6-2.6); Platelet Count 128 X10*3/uL (160-400); Potassium 4.9 mmol/L (3.3-5.1); Sodium 137 mmol/L (135-145); Total Protein 6.7 g/dL (6.5-8.0)
[2021-07-21 12:02] LABS: SLIDE REVIEW VERIFIED
[2021-07-21 12:25] LABS: Appearance Urine CLEAR; Color Urine YELLOW; Glucose Urine UA >=1000 MG/DL (NEG); Leukocyte Esterase Urine NEG (NEG); Nitrite Urine NEG (NEG); Urine Blood NEG (NEG); Urine Ketones NEG (NEG); Urine Protein NEG (NEG-TRACE)
[2021-07-21] MEDS: Magnesium Oxide 400 MG TABLET 800 MG PO (12:26)
[2021-07-21] MEDS: Insulin Lispro 100 UNIT/ML 3 ML VIAL SUBCUT (12:26)
[2021-07-21 12:33] LABS: RBC Urine 0-2 /HPF (0); Squamous Epithelial Cell Urine TRACE /LPF; WBC Urine 0-2 /HPF (0-4)
--- NOTE | 2021-07-21 13:54 | MHC.CM.ED ---
Addendum entered by Amber Johnson 07/21/21 14:11: No bed offers made within 20 miles. Referral broadcasted within 30 miles. Original Note: Received case management consult from Dr Flood. Patient was d/c's from ER on 07/18. Rehab was recommended at that time, but patient refused. Patient returned to ER today with elevated glucose. Dr Flood spoke with patient. Patient is now agreeable to rehab. Patient is well known to case management. Patient has been difficult to place in the past. Referral broadcasted within 20 miles of patient's residence. Patient received 1 J&J vaccine and 2 Moderna vaccines. HCP verified to be on file. Covid swab is negative. Continue to monitor for d/c needs.
--- NOTE | 2021-07-21 20:33 | PHA.MEDREC ---
Pharmacy Consult ? Medication Reconciliation Pharmacy has completed the medication reconciliation.
[2021-07-21 21:07] LABS: Glucose, Whole Blood 258 mg/dL (60-115)
--- NOTE | 2021-07-21 22:29 | PC.NURSE ---
Provider notified about POC
[2021-07-22 00:41] VITALS: BP 136/60; PULSE 76; RESP 17; TEMP 36.8; O2SAT 96
[2021-07-22 02:00] VITALS: BP 128/70; PULSE 76; RESP 14
[2021-07-22] MEDS: Melatonin 3 MG TABLET 6 MG PO (02:38)
[2021-07-22] MEDS: Amitriptyline HCl 50 MG TABLET PO ×2 (02:50→21:30)
[2021-07-22 04:34] VITALS: BP 145/61; PULSE 80; RESP 10; O2SAT 95
[2021-07-22 06:21] VITALS: BP 134/53; PULSE 75; RESP 16; O2SAT 95
[2021-07-22 06:53] LABS: Glucose, Whole Blood 246 mg/dL (60-115)
--- NOTE | 2021-07-22 07:17 | PC.NURSE ---
report taken from norma rn pt here for failure to thrive, inability to care. pt resting comfortably in stretcher, favoring r side. previous shift rn sts pt cleaned of incontinent urine and linens just prior to shift change. awake to voice, offers no physical complaints to this rn. this rn placing second pillow under r side arm to support pt. wctm for dc needs.
--- NOTE | 2021-07-22 08:54 | PHA.MEDREC ---
Pharmacy Consult ? Medication Reconciliation Med rec was entered incorrectly in regards to the insulin. I confirmed with the care technician that the patient takes 30 units of lantus once a day and lispro 10 units TID. Med rec has been updated to reflex this change.
--- NOTE | 2021-07-22 09:27 | MHC.CM.ED ---
Patient remains in ER. No bed offers made yet. Referral broadcasted within 50 miles of patient's home. 62 referrals made. Continue to monitor for d/c needs.
[2021-07-22] MEDS: Metoclopramide HCl 10 MG TABLET PO (10:27)
--- NOTE | 2021-07-22 10:28 | PC.NURSE ---
pt has felt nauseous since waking up, has not vomited. prn reglan given, will assess for effect before giving rest of hs po meds. pt sat up in bed, repositioned. wctm.
[2021-07-22] MEDS: Omeprazole 20 MG CAPSULE.DR PO ×2 (11:05→21:04)
[2021-07-22] MEDS: ALPRAZolam 0.25 MG TABLET PO ×3 (11:05→21:33)
[2021-07-22] MEDS: Losartan Potassium 50 MG TABLET 100 MG PO (11:05)
[2021-07-22] MEDS: Metoprolol Succinate ER 100 MG TAB.ER.24H PO (11:06)
[2021-07-22] MEDS: Promethazine HCL 25 MG TABLET PO ×3 (11:06→21:04)
[2021-07-22] MEDS: Diphenoxylate/Atrop 2.5/0.025 TABLET 1 TAB PO ×2 (11:06→21:04)
[2021-07-22] MEDS: Isosorbide Mononitrate 30 MG TAB.ER.24H PO (11:06)
[2021-07-22] MEDS: Gabapentin 400 MG CAPSULE PO ×3 (11:06→21:08)
[2021-07-22] MEDS: metFORMIN HCl ER 500 MG TAB.ER.24H 1000 MG PO (11:06)
--- NOTE | 2021-07-22 11:21 | PC.NURSE ---
pt feeling a little better, will try to take rest of hs meds, refusing some of the larger pills. tolerated some apple sauce following medications, resistant to trying to eat breakfast. educated about need for sustenance to promote healing and strength. will revisit eating when pt is feeling better. vss.
--- NOTE | 2021-07-22 14:06 | PC.NURSE ---
pt ate approx 50% lunch, tolerated w/o issue. sitting up watching tv, in good spirits.
[2021-07-22] MEDS: Topiramate 100 MG TABLET PO (16:05)
--- NOTE | 2021-07-22 16:37 | PC.NURSE ---
pt moved over to hospital bed for comfort, repositioned over to l side, pt ordinarily favors r side. pt linens appear clean of any incontinence.
[2021-07-22 18:23] VITALS: BP 113/51; PULSE 74; RESP 18; TEMP 36.4; O2SAT 96
[2021-07-22] MEDS: Sennosides 8.6 MG TABLET 17.2 MG PO (21:04)
[2021-07-22] MEDS: Atorvastatin Calcium 80 MG TABLET PO (21:04)
[2021-07-22] MEDS: DULoxetine HCl 20 MG CAPSULE.DR PO (21:33)
--- NOTE | 2021-07-22 21:36 | PC.NURSE ---
Assumed care of pt pt resting on stretcher with eyes closed Breathing even and unlabored Arousable NAD Pt medicated per MAY Pt tolerated well Will continue to monitor
[2021-07-22 23:46] VITALS: BP 105/45; PULSE 67; RESP 14; O2SAT 96
--- NOTE | 2021-07-23 01:30 | PC.NURSE ---
Pt assisted to bedside commode x 1 assist pt tolerated well Pt back on hospital bed NAD Will continue to monitor
[2021-07-23 06:18] VITALS: BP 124/53; PULSE 65; RESP 18; TEMP 36.5; O2SAT 96
[2021-07-23 07:34] LABS: Glucose, Whole Blood 410 mg/dL (60-115)
--- NOTE | 2021-07-23 07:35 | PC.NURSE ---
POCT 422, provider made aware and ordered Iv insulin. unable to obtain an IV for IV insulin. provider made aware.
[2021-07-23 07:49] LABS: Glucose, Whole Blood 422 mg/dL (60-115)
[2021-07-23 07:58] VITALS: BP 121/54; PULSE 70; RESP 16; TEMP 36.5; O2SAT 97
--- NOTE | 2021-07-23 08:31 | MHC.CM.ED ---
Patient remains in ER. No beds made yet. Referral broadcasted within the state [facility]. 216 referrals made. Continue to monitor for d/c needs.
[2021-07-23 09:21] VITALS: BP 147/46; PULSE 67; RESP 18; O2SAT 97
[2021-07-23] MEDS: Magnesium Oxide 400 MG TABLET PO (09:22)
[2021-07-23] MEDS: Losartan Potassium 50 MG TABLET 100 MG PO (09:22)
[2021-07-23] MEDS: Isosorbide Mononitrate 30 MG TAB.ER.24H PO (09:22)
[2021-07-23] MEDS: Metoprolol Succinate ER 100 MG TAB.ER.24H PO (09:22)
[2021-07-23] MEDS: Diphenoxylate/Atrop 2.5/0.025 TABLET 1 TAB PO (09:22)
[2021-07-23] MEDS: Loratadine 10 MG TABLET PO (09:22)
[2021-07-23] MEDS: Promethazine HCL 25 MG TABLET PO ×2 (09:22→15:07)
[2021-07-23] MEDS: ALPRAZolam 0.25 MG TABLET PO ×2 (09:22→15:07)
[2021-07-23] MEDS: Insulin Lispro 100 UNIT/ML 3 ML VIAL SUBCUT (09:23)
[2021-07-23] MEDS: Multivitamin TABLET 1 TAB PO (09:23)
[2021-07-23] MEDS: Omeprazole 20 MG CAPSULE.DR PO (09:23)
[2021-07-23] MEDS: Gabapentin 400 MG CAPSULE PO ×2 (09:23→15:07)
[2021-07-23] MEDS: metFORMIN HCl ER 500 MG TAB.ER.24H 1000 MG PO (09:46)
[2021-07-23] MEDS: DULoxetine HCl 20 MG CAPSULE.DR PO (09:47)
--- NOTE | 2021-07-23 11:53 | MHC.CARE ---
Pt is a 61 y/o Armenian speaking female who is previously unknown to the CARE Team.? CARE Team meets with pt in her room to conduct a risk assessment.? Pt is alert and oriented x4, she is assessed for risk in her room in the Main ED.? She is dressed in hospital attire and appears older than her stated age.? She states she is at this facility due to stomach issues, stating that she has been unable to eat and that she has always had a ?Bad stomach?.? ??She reports a hx of anxiety and depression, but stated she has not experienced either ?In a very long time.?? She advises CARE Team that she feels ?Good? (in relation to depression and anxiety) and is not depressed or anxious.? Pt demonstrates a full range of affect.? She states she was, at one time, on medications for depression and anxiety and may still be on a medication for depression, though she cannot recall.? She reports fair sleep.? Her speech is slow and at times soft, her eye contact is unremarkable.? She denies SI, HI, , self-harm urges and any hx of.? She denies AVH and any hx of such sx.? She does not appear delusional or experiencing sx of psychosis. Pt does not appear to be a risk.
[2021-07-23 11:54] VITALS: BP 115/51; PULSE 66; RESP 15; TEMP 36.6; O2SAT 96
[2021-07-23 12:02] LABS: Anion Gap 13 (12-20); Blood Urea Nitrogen 17 mg/dL (9-16); Calcium 9.6 mg/dL (8.4-10.2); Carbon Dioxide 21 mmol/L (22-29); Chloride 104 mmol/L (96-108); Creatinine Clr Calc Pharmacy 41.1; Estimated Glomerular Filt Rate 38; Glucose Random 483 mg/dL (60-115); Potassium 4.5 mmol/L (3.3-5.1); Sodium 133 mmol/L (135-145)
[2021-07-23 12:32] LABS: Acetone, serum QL Negative (Negative)
[2021-07-23] MEDS: Insulin Lispro 100 UNIT/ML 3 ML VIAL 10 UNIT SUBCUT (12:56)
--- NOTE | 2021-07-23 14:16 | MHC.CM.ED ---
[facility]. This facility is about 1.5 hours away. [facility] is also able to offer a bed. This facility is about 1 hour away. Met with patient. Explained 216 referrals were made. These are the only 2 offers at this time. Patient requesting to go home. Steffi from [facility] made aware via telephone at [phone]. Belle from [facility] will come to ER to discuss rehab need with patient. PASRR Level [address] [facility] due to anxiety. Exemption letter obtained. MDS completed and faxed to [facility]. Continue to monitor for d/c needs.
[2021-07-23 14:28] LABS: Glucose, Whole Blood 358 mg/dL (60-115)
--- NOTE | 2021-07-23 14:49 | PC.NURSE ---
aware of POC
--- NOTE | 2021-07-23 15:09 | MHC.CM.ED ---
Belle on site with patient. Patient is still refusing rehab. Patient has been active with [facility] in the past. Referral made via [employer]. Riki BEAULIEU aware and will let CM know when she is ready for d/c. Continue to monitor for d/c needs.
[2021-07-23 16:52] VITALS: BP 106/45; PULSE 72; RESP 14; TEMP 36.6; O2SAT 98
[2021-07-23 18:01] LABS: Anion Gap 13 (12-20); Blood Urea Nitrogen 16 mg/dL (9-16); Calcium 9.7 mg/dL (8.4-10.2); Carbon Dioxide 23 mmol/L (22-29); Chloride 103 mmol/L (96-108); Creatinine Clr Calc Pharmacy 43.6; Estimated Glomerular Filt Rate 40; Glucose Random 357 mg/dL (60-115); Potassium 4.2 mmol/L (3.3-5.1); Sodium 135 mmol/L (135-145)
[2021-07-23] MEDS: Topiramate 100 MG TABLET PO (18:39)
--- NOTE | 2021-07-23 20:26 | MHC.CM.ED ---
Daughter, Codie aware that pt will be coming home. Waiting for ambulance. Will call Kvng, pt HEALTH NURSE. Kvng called CM. She is at patients home, waiting for her. Pt aware.
--- NOTE | 2021-07-23 20:27 | MHC.CM.ED ---
Ambulance here to transport pt home. Trev called ([phone]). Will be waiting at pt home. Ambulance attendants aware. RN Max aware/
== END 2021-07-23 20:34 | disposition home or self-care (01) ==
PROVIDERS: Physician Assistant; Emergency Provider Emergency Medicine; PCP Internal Medicine
DX: E11.65 Type 2 diabetes mellitus with hyperglycemia (principal); E83.42 Hypomagnesemia; E11.40 Type 2 diabetes mellitus with diabetic neuropathy, unspecified; I10 Essential (primary) hypertension; I25.10 Atherosclerotic heart disease of native coronary artery without angina pectoris; I25.2 Old myocardial infarction; Z86.73 Personal history of transient ischemic attack (TIA), and cerebral infarction without residual deficits; Z99.3 Dependence on wheelchair; Z91.14 Patient's other noncompliance with medication regimen; Z20.822 Contact with and (suspected) exposure to COVID-19
CPT/HCPCS: 36415; 80048; 80076; 81001; 82009; 82947; 83735; 85025; 87635; 96361; 96374; 97161; 99284; 99285

== ENCOUNTER 2021-07-26 22:58 | Emergency (ER) | payer MEDICAID, SELFPAY ==
--- NOTE | ~2021-07-26 | XR_ITS ---
EXAMINATION: XR FOOT, LEFT CLINICAL INFORMATION: Ulcer at the medial heel. Question osteomyelitis. COMPARISON: 06/23/2021 TECHNIQUE: AP, lateral, and oblique views of the left foot. FINDINGS: Pes planus. No fracture or dislocation. Joint spaces are narrowed throughout the metatarsophalangeal joints and interphalangeal joints with sclerosis. Degenerative changes at the tarsometatarsal joints as well. Small plantar heel spur. No acute osseous erosion. No gross soft tissue abnormality visualized. XR/XR foot LT 2V IMPRESSION: No acute osseous abnormality. No osseous erosion.
[2021-07-26 23:05] VITALS: BP 137/63; PULSE 80; O2SAT 94
[2021-07-26 23:08] VITALS: BP 137/63; PULSE 74; RESP 28; TEMP 36.6; O2SAT 98; BMI 32.1
[2021-07-26 23:10] LABS: Glucose, Whole Blood 229 mg/dL (60-115)
--- NOTE | 2021-07-26 23:24 | ED_ITS ---
HPI - Abdominal Pain General Chief Complaint: Abdominal Pain Stated Complaint: N/V Time Seen by Provider: 07/26/21 23:15 Source: patient and EMS Mode of arrival: EMS Limitations: no limitations History of Present Illness HPI narrative: Patient comes in on insulin complaining of nausea vomiting and diarrhea for 1 da y. Patient denies URI or UTI symptoms. Her symptoms started this morning. Patient is known to be type 1 diabetic. Patient states she has been using her insulin, on arrival point of care glucose was 229. EMS gave the patient 4 mg of IM Zofran. Related Data Home Medications Medication Instructions Recorded Confirmed promethazine 25 mg tablet 25 mg PO TID 04/10/20 07/21/21 amitriptyline 50 mg tablet 50 mg PO BEDTIME 05/12/20 07/21/21 atorvastatin 80 mg tablet 80 mg PO BEDTIME 05/12/20 07/21/21 isosorbide mononitrate 30 mg 30 mg PO DAILY 05/12/20 07/21/21 tablet,extended release 24 hr losartan 100 mg tablet 100 mg PO DAILY 05/12/20 07/21/21 metoprolol succinate 100 mg 100 mg PO BID 05/12/20 07/21/21 tablet,extended release 24 hr niacin 1,000 mg tablet,extended 1,000 mg PO BEDTIME 05/12/20 07/21/21 release 24 hr omeprazole 20 mg capsule,delayed 20 mg PO BID 05/12/20 07/21/21 release topiramate 100 mg tablet 100 mg PO DAILY@1700 05/12/20 07/21/21 acetaminophen 325 mg tablet 650 mg PO Q6H PRN 06/29/21 07/21/21 alprazolam 0.25 mg tablet (Xanax) 1 tab PO TID 06/29/21 07/21/21 hlyiymtosp-yzzjaezfzhjuh-vhcxkqhc 1 cap PO TID PRN 06/29/21 07/21/21 50 mg-300 mg-40 mg capsule (Fioricet) diphenoxylate-atropine 2.5 1 tab PO BID 06/29/21 07/21/21 mg-0.025 mg tablet (Lomotil) duloxetine 20 mg capsule,delayed 20 mg PO BID 06/29/21 07/21/21 release gabapentin 400 mg capsule 400 mg PO TID 06/29/21 07/21/21 hydromorphone 2 mg tablet 1 tab PO DAILY PRN 06/29/21 07/21/21 (Dilaudid) loratadine 10 mg tablet 10 mg PO DAILY 06/29/21 07/21/21 metformin 500 mg tablet,extended 1,000 mg PO DAILY 06/29/21 07/21/21 release 24 hr ergocalciferol (vitamin D2) 1,250 1,250 mcg PO QWEEK 07/15/21 07/21/21 mcg (50,000 unit) capsule insulin lispro 100 unit/mL 10 unit SUBCUT TID 07/15/21 07/22/21 subcutaneous solution (Humalog U-100 Insulin) metoclopramide HCl 10 mg tablet 10 mg PO BID PRN 07/15/21 07/21/21 multivitamin 1 tab PO DAILY 07/15/21 07/21/21 nitroglycerin 0.4 mg sublingual 0.4 mg SUBLINGUAL Q5M PRN 07/15/21 07/21/21 tablet (Nitrostat) sennosides 8.6 mg tablet (senna) 17.2 mg PO BEDTIME 07/15/21 07/21/21 insulin glargine 100 unit/mL (3 30 unit SUBCUT DAILY 07/22/21 07/22/21 mL) subcutaneous pen (Lantus Solostar U-100 Insulin) Previous Rx's Medication Instructions Recorded melatonin 3 mg tablet 6 mg PO BEDTIME #30 tab 02/09/21 magnesium oxide 400 mg PO DAILY #14 tab 07/19/21 ondansetron HCl 4 mg tablet 4 mg PO Q6H PRN #14 tab 07/27/21 Allergies Allergy/AdvReac Type Severity Reaction Status Date / Time Penicillins [PENICILLINS] Allergy Mild HIVES Verified 05/25/20 04:33 clarithromycin [From Biaxin] Allergy Unknown HIVES Verified 05/25/20 04:33 penicillin V Allergy Unknown rash, Verified 05/25/20 04:33 throat tight bioxin Allergy Unknown Unknown Uncoded 05/25/20 04:33 penicillin Allergy Unknown Unknown Uncoded 05/25/20 04:33 Review of Systems Review of Systems Constitutional : No Weight loss, No Fever, No Chills, No Night Sweats, No Fatigue, No Malaise ENT/Mouth : No Hearing loss, No Ear Pain, No Nasal Congestion, No Sinus Pain, No Hoarseness, No sore throat, No Rhinorrhea, No Swallowing Difficulty Eyes: No Eye Pain, No Swelling, No Redness, No Foreign Body, No Discharge, No Vision Changes Cardiovascular : No Chest Pain, No SOB, No Dyspnea on Exertion, No Orthopnea, No Edema, No Palpitations Respiratory : No Cough, No Sputum, No Wheezing, No Smoke Exposure, No Dyspnea Gastrointestinal : Complaining of nausea, vomiting and 1 episode of diarrhea, complaining of diffuse abdominal cramping, No Constipation, no hematochezia, no melena Genitourinary : no irregular bleeding, No Dysuria, No Urinary Frequency, No Hematuria, No Urinary Incontinence, No Urgency, No Flank Pain, No Urinary Flow Changes, No Hesitancy Musculoskeletal : No joint pain, No Myalgias, No Joint Swelling Skin : No Skin Lesions, No rash Neuro : No Weakness, No Numbness, No Paresthesias, No Loss of Consciousness, No Dizziness, No Headache Psych : No Anxiety/Panic, No Depression, No SI/HI/AH/VH, No Social Issues, Heme/Lymph: No Bruising, No Bleeding,No Lymphadenopathy Endocrine : No Polyuria, No Polydipsia, No Temperature Intolerance PMFSH Past Medical History Medical History Anxiety Below knee amputation CAD (coronary artery disease) Cholelithiasis Chronic pain syndrome CVA (cerebral vascular accident) Delirium due to another medical condition Depression Diabetic foot ulcer Diabetic neuropathy associated with diabetes mellitus due to underlying condition Encephalopathy acute Gastroparesis History of gastrostomy tube placement History of peptic ulcer disease HTN (hypertension) Hyperglycemia Hypotonic neurogenic bladder IDDM (insulin dependent diabetes mellitus) Liver lesion Myocardial infarction Wheelchair bound Surgical History History of back surgery Hx of BKA Family History Family History Father Coronary arteriosclerosis Social History Social History Household Members: None Housing: Apartment Are you a primary aged or disabled carer to a significant other at home: No Do you presently have visiting nurse or other home services: Yes Unable to assess alcohol history related to: Unable to respond Alcohol intake: never Patient Tobacco Use Status: Never used Tobacco Second Hand Smoke Exposure: No Advance Directives: Yes Advance Directives on File: Yes Advance Directives Date on File: 05/12/20 service: No Current occupational status: unemployed and disabled Physical Exam ED Vital Signs: Vital Signs - 24 hr 07/26/21 23:08 07/27/21 01:19 Temperature 97.9 F Pulse Rate 74 64 Respiratory Rate 28 H 20 Blood Pressure 137/63 113/52 L Pulse Oximetry 98 95 BMI result Body Mass Index 32.1 Const Other: Appearance: Alert. Oriented X3. Seems uncomfortable, nauseous Eyes: Pupils equal, round and reactive to light. ENT: Pharynx normal. Neck: Normal inspection. Neck supple. No lymph nodes noted. No crepitus CVS: Normal heart rate and rhythm. Pulses normal. Normal S1 and S2 Respiratory: No respiratory distress. Breath sounds normal. No Wheezing. No rales Abdomen: Soft and nontender. No rigidity. No distention. Skin: Skin warm and dry. Normal skin color. Normal skin turgor. Extremities: +2 nonpitting edema in left lower extremity, patient has a BKA on the right side. On the left heel, there is an ulcer. See picture below Neuro: Oriented X 3. No motor deficit. No sensory deficit. Moving all extremities. No slurred speech. CN 2 through 12 grossly intact Psych: calm, cooperative, normal affect Course Course Course Narrative: Patient will be getting IV fluids, Phenergan. All the labs pending. Carrillo for COVID and flu pending Patient had a CT scan done 1-1/2 weeks ago for similar clinical presentation. No acute findings. Patient magnesium is slightly decreased at 1.4, magnesium being repleted IV Patient feeling better, no abdominal pain or vomiting. S x-ray of the foot does not look suspicious for osteomyelitis. Patient's white blood cell count and lactic acid within normal limits, no fever or chills. No signs of sepsis. MDM - Abdominal Pain Lab Data Result diagrams: 07/26/21 23:51 07/26/21 23:51 Labs: Lab Results 07/26/21 07/26/21 07/26/21 Range/Units 23:06 23:51 23:51 WBC 9.0 (4.8-10.8) X10*3/uL RBC 3.50 L (4.20-5.50) X10*6/uL Hgb 11.3 L (12.0-16.0) g/dl Hct 33.6 L (37.0-47.0) % MCV 96.0 (80.0-98.0) fL MCH 32.3 (27.0-33.0) pg MCHC 33.6 (31.0-35.0) g/dl RDW 14.6 (11.0-16.0) % Plt Count 199 D (160-400) X10*3/uL MPV 11.1 (9.4-12.3) fL Immature Gran % (Auto) 0.2 (0.0-0.4) % Neut % (Auto) 44.8 L (45-73) % Lymph % (Auto) 42.1 H (20-40) % [place] % (Auto) 11.1 H (2-11) % Eos % (Auto) 1.6 (0-4) % Baso % (Auto) 0.2 (0-2) % Lymph # (Auto) 3.8 (1.2-4.9) X10*3/uL [place] # (Auto) 1.0 (0.1-1.2) X10*3/uL Eos # (Auto) 0.1 (0.0-0.4) X10*3/uL Baso # (Auto) 0.0 (0.0-0.2) X10*3/uL Abs Immat Gran (auto) 0.02 (0.00-0.03) X10*3/uL Absolute Neuts (auto) 4.0 (2.0-8.3) x10*3/uL Absolute Nucleated RBC 0.000 (0.0-0.012) X10*3/uL Nucleated RBC % (auto) 0.0 (0.0-0.2) /100WBC Sodium 138 (135-145) mmol/L Potassium 4.3 (3.3-5.1) mmol/L Chloride 109 H (96-108) mmol/L Carbon Dioxide 17 L (22-29) mmol/L Anion Gap 16 (12-20) BUN 10 (9-16) mg/dL Creatinine 0.83 (0.5-1.4) mg/dL Estim Creat Clear Calc 72.3 Estimated GFR > 60 POC Glucose 229 H (60-115) mg/dL Random Glucose 256 H (60-115) mg/dL Lactic Acid (0.5-2.0) mmol/L Calcium 9.5 (8.4-10.2) mg/dL Magnesium 1.4 L* (1.6-2.6) mg/dL Total Bilirubin 0.3 (0.0-1.0) mg/dL AST 13 (5-31) U/L ALT 7 (0-31) U/L Alkaline Phosphatase 79 (39-117) U/L Total Protein 7.3 (6.5-8.0) g/dL Albumin 4.0 (3.5-5.0) g/dL Acetone, Qual Negative (Negative) COVID-19 (TA) (Negative) COVID-19 Clin Com Influenza Type A (TIMOTHY) (Negative) Influenza Type B (TIMOTHY) (Negative) Influenza A & B Note 07/26/21 07/26/21 07/27/21 Range/Units 23:51 23:51 00:04 WBC (4.8-10.8) X10*3/uL RBC (4.20-5.50) X10*6/uL Hgb (12.0-16.0) g/dl Hct (37.0-47.0) % MCV (80.0-98.0) fL MCH (27.0-33.0) pg MCHC (31.0-35.0) g/dl RDW (11.0-16.0) % Plt Count (160-400) X10*3/uL MPV (9.4-12.3) fL Immature Gran % (Auto) (0.0-0.4) % Neut % (Auto) (45-73) % Lymph % (Auto) (20-40) % [place] % (Auto) (2-11) % Eos % (Auto) (0-4) % Baso % (Auto) (0-2) % Lymph # (Auto) (1.2-4.9) X10*3/uL [place] # (Auto) (0.1-1.2) X10*3/uL Eos # (Auto) (0.0-0.4) X10*3/uL Baso # (Auto) (0.0-0.2) X10*3/uL Abs Immat Gran (auto) (0.00-0.03) X10*3/uL Absolute Neuts (auto) (2.0-8.3) x10*3/uL Absolute Nucleated RBC (0.0-0.012) X10*3/uL Nucleated RBC % (auto) (0.0-0.2) /100WBC Sodium (135-145) mmol/L Potassium (3.3-5.1) mmol/L Chloride (96-108) mmol/L Carbon Dioxide (22-29) mmol/L Anion Gap (12-20) BUN (9-16) mg/dL Creatinine (0.5-1.4) mg/dL Estim Creat Clear Calc Estimated GFR POC Glucose (60-115) mg/dL Random Glucose (60-115) mg/dL Lactic Acid 1.0 (0.5-2.0) mmol/L Calcium (8.4-10.2) mg/dL Magnesium (1.6-2.6) mg/dL Total Bilirubin (0.0-1.0) mg/dL AST (5-31) U/L ALT (0-31) U/L Alkaline Phosphatase (39-117) U/L Total Protein (6.5-8.0) g/dL Albumin (3.5-5.0) g/dL Acetone, Qual (Negative) COVID-19 (TA) Negative (Negative) COVID-19 Clin Com See Note Influenza Type A (TIMOTHY) Negative (Negative) Influenza Type B (TIMOTHY) Negative (Negative) Influenza A & B Note See Note Imaging Data Chest x-ray: Radiologist's impression: FINDINGS: Pes planus. No fracture or dislocation. Joint spaces are narrowed throughout the metatarsophalangeal joints and interphalangeal joints with sclerosis. Degenerative changes at the tarsometatarsal joints as well. Small plantar heel spur. No acute osseous erosion. No gross soft tissue abnormality visualized. XR/XR foot LT 2V IMPRESSION: No acute osseous abnormality. No osseous erosion. Discharge Plan Discharge Clinical Impression: Vomiting, Hypomagnesemia Patient Disposition: Home, Self-Care Instructions: Acute Nausea and Vomiting (ED), Hypomagnesemia (ED) Additional Instructions: Please follow-up with your primary care physician tomorrow. If you have any worsening or new symptoms, please return to the emergency room or call 911 Prescriptions: New ondansetron HCl 4 mg tablet 4 mg PO Q6H PRN (Reason: nausea and vomiting) Qty: 14 0RF No Action promethazine 25 mg Tablet 25 mg PO TID 0RF atorvastatin 80 mg Tablet 80 mg PO BEDTIME 0RF isosorbide mononitrate 30 mg Tablet Extended Release 24 Hr 30 mg PO DAILY 0RF metoprolol succinate 100 mg Tablet Extended Release 24 Hr 100 mg PO BID 0RF amitriptyline 50 mg Tablet 50 mg PO BEDTIME 0RF omeprazole 20 mg Capsule,Delayed Release(Dr/Ec) 20 mg PO BID 0RF topiramate 100 mg Tablet 100 mg PO DAILY@1700 0RF losartan 100 mg Tablet 100 mg PO DAILY 0RF niacin 1,000 mg Tablet Extended Release 24 Hr 1,000 mg PO BEDTIME 0RF melatonin 3 mg Tablet 6 mg PO BEDTIME Qty: 30 0RF hydromorphone [Dilaudid] 2 mg tablet 1 tab PO DAILY PRN (Reason: pain) 0RF alprazolam [Xanax] 0.25 mg tablet 1 tab PO TID 0RF xhklttwoyk-fjaidcmihonsl-pmfp [Fioricet] 50-300-40 mg capsule 1 cap PO TID PRN (Reason: migraine) 0RF acetaminophen 325 mg Tablet 650 mg PO Q6H PRN (Reason: Pain) 0RF gabapentin 400 mg Capsule 400 mg PO TID 0RF diphenoxylate-atropine [Lomotil] 2.5-0.025 mg Tablet 1 tab PO BID 0RF metformin 500 mg Tablet Extended Release 24 Hr 1,000 mg PO DAILY 0RF loratadine 10 mg Tablet 10 mg PO DAILY 0RF duloxetine 20 mg Capsule,Delayed Release(Dr/Ec) 20 mg PO BID 0RF multivitamin Tablet 1 tab PO DAILY 0RF sennosides [senna] 8.6 mg Tablet 17.2 mg PO BEDTIME 0RF nitroglycerin [Nitrostat] 0.4 mg Tablet, Sublingual 0.4 mg SUBLINGUAL Q5M PRN (Reason: Chest Pain) 0RF Rx Instructions: do not exceed 3 doses per episode ergocalciferol (vitamin D2) 1,250 mcg (50,000 unit) Capsule 1,250 mcg PO QWEEK 0RF insulin lispro [Humalog U-100 Insulin] 100 unit/mL Solution 10 unit SUBCUT TID 0RF metoclopramide HCl 10 mg Tablet 10 mg PO BID PRN (Reason: Spasms) 0RF magnesium oxide 400 mg magnesium tablet 400 mg PO DAILY Qty: 14 0RF Lantus Solostar U-100 Insulin 100 unit/mL (3 mL) Insulin Pen 30 unit SUBCUT DAILY 0RF
[2021-07-26 23:58] LABS: MANUAL DIFF FLAG NO
[2021-07-26 23:59] LABS: Imm Gran Abs Auto 0.02 X10*3/uL (0.00-0.03); Imm Gran Pct Auto 0.2 % (0.0-0.4); Mean Platelet Volume 11.1 fL (9.4-12.3); PLT CLUMP 1; Red Cell Distribution Width 14.6 % (11.0-16.0); SCAN SMEAR FLAG 1
[2021-07-27 00:01] LABS: Basophils Percent Auto 0.2 % (0-2); Eosinophils Absolute Auto 0.1 X10*3/uL (0.0-0.4); Eosinophils Percent Auto 1.6 % (0-4); Hematocrit 33.6 % (37.0-47.0); Hemoglobin 11.3 g/dl (12.0-16.0); Lymphocytes Absolute Auto 3.8 X10*3/uL (1.2-4.9); Lymphocytes Percent Auto 42.1 % (20-40); Mean Corpuscular HGB Conc 33.6 g/dl (31.0-35.0); Mean Corpuscular Hemoglobin 32.3 pg (27.0-33.0); Monocytes Percent Auto 11.1 % (2-11); Neutrophils Percent Auto 44.8 % (45-73)
[2021-07-27 00:04] LABS: Platelet Count 199 X10*3/uL (160-400)
[2021-07-27 00:09] LABS: Acetone, serum QL Negative (Negative)
[2021-07-27 00:19] LABS: COVID-19 Test Negative (Negative); IDNOW Serial# 08D9AD1C
[2021-07-27 00:20] LABS: Alanine Aminotransferase 7 U/L (0-31); Alkaline Phosphatase 79 U/L (39-117); Anion Gap 16 (12-20); Aspartate Amino Transferase 13 U/L (5-31); Bilirubin Total 0.3 mg/dL (0.0-1.0); Blood Urea Nitrogen 10 mg/dL (9-16); Calcium 9.5 mg/dL (8.4-10.2); Carbon Dioxide 17 mmol/L (22-29); Chloride 109 mmol/L (96-108); Creatinine Clr Calc Pharmacy 72.3; Estimated Glomerular Filt Rate > 60; Glucose Random 256 mg/dL (60-115); Magnesium 1.4 mg/dL (1.6-2.6); Potassium 4.3 mmol/L (3.3-5.1); Sodium 138 mmol/L (135-145); Total Protein 7.3 g/dL (6.5-8.0)
[2021-07-27 00:34] LABS: Influenza A Negative (Negative); Influenza B2 Negative (Negative)
[2021-07-27] MEDS: 0.9 % Sodium Chloride 1,000 ML 999 ML IVCONT (00:47)
[2021-07-27] MEDS: Magnesium Sulfate/H2O 2 GM/50 ML PIGGYBACK IV (00:47)
[2021-07-27] MEDS: Metoclopramide HCl 10 MG/2 ML VIAL IVPUSH (00:54)
--- NOTE | 2021-07-27 01:14 | PC.NURSE ---
Pt has diabetic foot ulcer on left foot, Dr. Black examined foot and took picture for chart. Pt also has complete right foot amputation d/t diabetes.
[2021-07-27 01:19] VITALS: BP 113/52; PULSE 64; RESP 20; O2SAT 95
[2021-07-27 02:20] VITALS: BP 112/48; PULSE 59; RESP 20; O2SAT 96
== END 2021-07-27 02:40 | disposition home or self-care (01) ==
PROVIDERS: Emergency Provider Emergency Medicine; PCP Internal Medicine
DX: E83.42 Hypomagnesemia (principal); R11.2 Nausea with vomiting, unspecified; R10.13 Epigastric pain; E10.9 Type 1 diabetes mellitus without complications; Z20.822 Contact with and (suspected) exposure to COVID-19; Z79.899 Other long term (current) drug therapy; Z79.4 Long term (current) use of insulin
CPT/HCPCS: 36415; 73620; 80053; 82009; 82947; 83605; 83735; 85025; 87040; 87502; 87635; 96361; 96365; 96366; 96375; 99284; J2765; J3475

== ENCOUNTER 2021-09-15 22:34 | Emergency (ER) | payer MEDICAID, SELFPAY ==
[2021-09-15 22:47] VITALS: BP 180/90; PULSE 74; O2SAT 98
--- NOTE | 2021-09-15 22:47 | ED_ITS ---
HPI - General Adult General Chief complaint: General Medical Stated complaint: Lethargy Time Seen by Provider: 09/15/21 22:47 Source: patient Mode of arrival: ambulatory Limitations: no limitations History of Present Illness HPI narrative: patient diabetic on insulin used to be on Humulin U 500-50 units q.a.m. and 200 units subcu bedtime in in the past but changed to Lantus 20 units twice daily in 02/07 but now she is taking only 30 units daily as she had a hypoglycemic episode in the past since then her blood sugar been elevated more than 300 most of time and today it was reading 400 thus the patient came here patient denies any vomiting or abdominal pain she has a nonhealing wound in the left heel which is healing at this time no pus discharge or increased redness Related Data Home Medications Medication Instructions Recorded Confirmed promethazine 25 mg tablet 25 mg PO TID 04/10/20 07/21/21 amitriptyline 50 mg tablet 50 mg PO BEDTIME 05/12/20 07/21/21 atorvastatin 80 mg tablet 80 mg PO BEDTIME 05/12/20 07/21/21 isosorbide mononitrate 30 mg 30 mg PO DAILY 05/12/20 07/21/21 tablet,extended release 24 hr losartan 100 mg tablet 100 mg PO DAILY 05/12/20 07/21/21 metoprolol succinate 100 mg 100 mg PO BID 05/12/20 07/21/21 tablet,extended release 24 hr niacin 1,000 mg tablet,extended 1,000 mg PO BEDTIME 05/12/20 07/21/21 release 24 hr omeprazole 20 mg capsule,delayed 20 mg PO BID 05/12/20 07/21/21 release topiramate 100 mg tablet 100 mg PO DAILY@1700 05/12/20 07/21/21 acetaminophen 325 mg tablet 650 mg PO Q6H PRN Pain 06/29/21 07/21/21 alprazolam 0.25 mg tablet (Xanax) 1 tab PO TID 06/29/21 07/21/21 bctwajqzdl-njnjhnjfxehlq-jmlxdtar 1 cap PO TID PRN migraine 06/29/21 07/21/21 50 mg-300 mg-40 mg capsule (Fioricet) diphenoxylate-atropine 2.5 1 tab PO BID 04/12/22 05/04/22 mg-0.025 mg tablet (Lomotil) duloxetine 20 mg capsule,delayed 20 mg PO BID 06/29/21 07/21/21 release gabapentin 400 mg capsule 400 mg PO TID 06/29/21 07/21/21 hydromorphone 2 mg tablet 1 tab PO DAILY PRN pain 06/29/21 07/21/21 (Dilaudid) loratadine 10 mg tablet 10 mg PO DAILY 06/29/21 07/21/21 metformin 500 mg tablet,extended 1,000 mg PO DAILY 06/29/21 07/21/21 release 24 hr ergocalciferol (vitamin D2) 1,250 1,250 mcg PO QWEEK 07/15/21 07/21/21 mcg (50,000 unit) capsule insulin lispro 100 unit/mL 10 unit subcut TID 07/15/21 07/22/21 subcutaneous solution (Humalog U-100 Insulin) metoclopramide HCl 10 mg tablet 10 mg PO BID PRN Spasms 07/15/21 07/21/21 multivitamin 1 tab PO DAILY 07/15/21 07/21/21 nitroglycerin 0.4 mg sublingual 0.4 mg sublingual Q5M PRN Chest 07/15/21 07/21/21 tablet (Nitrostat) Pain sennosides 8.6 mg tablet (senna) 17.2 mg PO BEDTIME 07/15/21 07/21/21 insulin glargine 100 unit/mL (3 30 unit subcut DAILY 07/22/21 07/22/21 mL) subcutaneous pen (Lantus Solostar U-100 Insulin) Previous Rx's Medication Instructions Recorded melatonin 3 mg tablet 6 mg PO BEDTIME #30 tabs 02/09/21 magnesium oxide 400 mg PO DAILY #14 tabs 07/19/21 ondansetron HCl 4 mg tablet 4 mg PO Q6H PRN nausea and 07/27/21 vomiting #14 tabs Allergies Allergy/AdvReac Type Severity Reaction Status Date / Time Penicillins [PENICILLINS] Allergy Mild HIVES Verified 05/25/20 04:33 clarithromycin [From Biaxin] Allergy Unknown HIVES Verified 05/25/20 04:33 penicillin V Allergy Unknown rash, Verified 05/25/20 04:33 throat tight bioxin Allergy Unknown Unknown Uncoded 03/08/21 04:33 penicillin Allergy Unknown Unknown Uncoded 05/25/20 04:33 Review of Systems Review of Systems: Yes all other systems are reviewed and are negative [facility] Past Medical History Medical History Anxiety Below knee amputation CAD (coronary artery disease) Cholelithiasis Chronic pain syndrome CVA (cerebral vascular accident) Delirium due to another medical condition Depression Diabetic foot ulcer Diabetic neuropathy associated with diabetes mellitus due to underlying condition Encephalopathy acute Gastroparesis History of gastrostomy tube placement History of peptic ulcer disease HTN (hypertension) Hyperglycemia Hypotonic neurogenic bladder IDDM (insulin dependent diabetes mellitus) Liver lesion Myocardial infarction Wheelchair bound Surgical History History of back surgery Hx of BKA Family History Family History Father Coronary arteriosclerosis Social History Social History Household Members: None Housing: Apartment Are you a primary healthcare administrator to a significant other at home: No Do you presently have visiting nurse or other home services: Yes Unable to assess alcohol history related to: Unable to respond Alcohol intake: never Patient Tobacco Use Status: Never used Tobacco Second Hand Smoke Exposure: No Advance Directives: Yes Advance Directives on File: Yes Advance Directives Date on File: 05/12/20 service: No Current occupational status: unemployed and disabled Physical Exam ED Vital Signs: Vital Signs - 24 hr 09/15/21 22:48 09/15/21 23:39 09/16/21 01:28 Temperature 98.4 F 97.9 F Pulse Rate 66 68 61 Respiratory Rate 16 20 18 Blood Pressure 123/54 L 115/53 L 121/58 L Pulse Oximetry 99 98 100 Oxygen Delivery Method Room Air Room Air Room Air 09/16/21 04:10 Temperature Pulse Rate 59 Respiratory Rate 16 Blood Pressure 114/58 L Pulse Oximetry 99 Oxygen Delivery Method Room Air BMI result Body Mass Index 36.0 Appearance: Alert. Oriented X3. No acute distress. Eyes: PERRLA, No Nystagmus ENT: Pharynx normal. Oral Mucosa moist Neck: Normal inspection. Neck supple. CVS: Normal heart rate and rhythm. Pulses normal. Respiratory: No respiratory distress. Equal air entry bilateral, no wheezing/rales/rhonchi Abdomen: Soft and nontender. Bowel sounds are present, no mass palpable, no CVA tenderness Skin: Skin warm and dry. Normal skin color. Normal skin turgor. Extremities: No lower extremity edema. No calf tenderness Neuro: Oriented X 3. No motor deficit. No sensory deficit.No cerebellar signs , cranial nerves II-XII intact Medical Decision Making MDM Narrative Medical decision making narrative: patient type 2 diabetes uncontrolled blood sugar advised patient to increase the dose of Lantus to 40 units q.a.m. and follow with her bilingual trainer Lab Data Lab results reviewed: Yes I reviewed the patient's lab results. Result diagrams: 09/15/21 23:56 09/15/21 23:56 Labs: Lab Results 09/15/21 09/15/21 09/15/21 Range/Units 22:53 23:56 23:56 WBC 6.8 (4.8-10.8) X10*3/uL RBC 3.06 L (4.20-5.50) X10*6/uL Hgb 10.2 L (12.0-16.0) g/dl Hct 29.8 L (37.0-47.0) % MCV 97.4 (80.0-98.0) fL MCH 33.3 H (27.0-33.0) pg MCHC 34.2 (31.0-35.0) g/dl RDW 14.5 (11.0-16.0) % Plt Count 182 (160-400) X10*3/uL MPV 11.1 (9.4-12.3) fL Immature Gran % (Auto) 0.1 (0.0-0.4) % Neut % (Auto) 33.5 L (45-73) % Lymph % (Auto) 52.1 H (20-40) % [place] % (Auto) 12.4 H (2-11) % Eos % (Auto) 1.8 (0-4) % Baso % (Auto) 0.1 (0-2) % Lymph # (Auto) 3.6 (1.2-4.9) X10*3/uL [place] # (Auto) 0.9 (0.1-1.2) X10*3/uL Eos # (Auto) 0.1 (0.0-0.4) X10*3/uL Baso # (Auto) 0.0 (0.0-0.2) X10*3/uL Abs Immat Gran (auto) 0.01 (0.00-0.03) X10*3/uL Absolute Neuts (auto) 2.3 (2.0-8.3) x10*3/uL Absolute Nucleated RBC 0.000 (0.0-0.012) X10*3/uL Nucleated RBC % (auto) 0.0 (0.0-0.2) /100WBC Sodium 139 (135-145) mmol/L Potassium 3.7 (3.3-5.1) mmol/L Chloride 109 H (96-108) mmol/L Carbon Dioxide 22 (22-29) mmol/L Anion Gap 12 (12-20) BUN 10 (9-16) mg/dL Creatinine 0.84 (0.5-1.4) mg/dL Estim Creat Clear Calc 78.7 Estimated GFR > 60 POC Glucose 386 H* (60-115) mg/dL Random Glucose 415 H* (60-115) mg/dL Calcium 9.4 (8.4-10.2) mg/dL Total Bilirubin 0.2 (0.0-1.0) mg/dL AST 13 (5-31) U/L ALT 11 (0-31) U/L Alkaline Phosphatase 88 (39-117) U/L Total Protein 6.3 L (6.5-8.0) g/dL Albumin 3.6 (3.5-5.0) g/dL Urine Color Urine Appearance Urine pH (5.0-8.0) Ur Specific [place] (1.005-1.025) Urine Protein (NEG-TRACE) MG/DL Urine Glucose (UA) (NEG) MG/DL Urine Ketones (NEG) MG/DL Urine Blood (NEG) Urine Nitrite (NEG) Ur Leukocyte Esterase (NEG) Urine RBC (0) /HPF Urine WBC (0-4) /HPF Ur Squamous Epith Cells /LPF Urine Bacteria /LPF 09/16/21 09/16/21 Range/Units 01:41 01:54 WBC (4.8-10.8) X10*3/uL RBC (4.20-5.50) X10*6/uL Hgb (12.0-16.0) g/dl Hct (37.0-47.0) % MCV (80.0-98.0) fL MCH (27.0-33.0) pg MCHC (31.0-35.0) g/dl RDW (11.0-16.0) % Plt Count (160-400) X10*3/uL MPV (9.4-12.3) fL Immature Gran % (Auto) (0.0-0.4) % Neut % (Auto) (45-73) % Lymph % (Auto) (20-40) % [place] % (Auto) (2-11) % Eos % (Auto) (0-4) % Baso % (Auto) (0-2) % Lymph # (Auto) (1.2-4.9) X10*3/uL [place] # (Auto) (0.1-1.2) X10*3/uL Eos # (Auto) (0.0-0.4) X10*3/uL Baso # (Auto) (0.0-0.2) X10*3/uL Abs Immat Gran (auto) (0.00-0.03) X10*3/uL Absolute Neuts (auto) (2.0-8.3) x10*3/uL Absolute Nucleated RBC (0.0-0.012) X10*3/uL Nucleated RBC % (auto) (0.0-0.2) /100WBC Sodium (135-145) mmol/L Potassium (3.3-5.1) mmol/L Chloride (96-108) mmol/L Carbon Dioxide (22-29) mmol/L Anion Gap (12-20) BUN (9-16) mg/dL Creatinine (0.5-1.4) mg/dL Estim Creat Clear Calc Estimated GFR POC Glucose 214 H (60-115) mg/dL Random Glucose (60-115) mg/dL Calcium (8.4-10.2) mg/dL Total Bilirubin (0.0-1.0) mg/dL AST (5-31) U/L ALT (0-31) U/L Alkaline Phosphatase (39-117) U/L Total Protein (6.5-8.0) g/dL Albumin (3.5-5.0) g/dL Urine Color STRAW Urine Appearance CLEAR Urine pH 6.0 (5.0-8.0) Ur Specific [place] <= 1.005 (1.005-1.025) Urine Protein NEG (NEG-TRACE) MG/DL Urine Glucose (UA) >=1000 H (NEG) MG/DL Urine Ketones NEG (NEG) MG/DL Urine Blood NEG (NEG) Urine Nitrite NEG (NEG) Ur Leukocyte Esterase NEG (NEG) Urine RBC 0 (0) /HPF Urine WBC 0-2 (0-4) /HPF Ur Squamous Epith Cells NONE /LPF Urine Bacteria NONE /LPF Discharge Plan Discharge Clinical Impression: Diabetes mellitus with hyperglycemia Patient Disposition: Home, Self-Care Instructions: Diabetic Hyperglycemia (ED) Additional Instructions: Increase the dose of Lantus insulin to 40 units daily in Am follow-up with bilingual trainer regarding once a week insulin injections follow with PCP Prescriptions: No Action promethazine 25 mg Tablet 25 mg PO TID atorvastatin 80 mg Tablet 80 mg PO BEDTIME isosorbide mononitrate 30 mg Tablet Extended Release 24 Hr 30 mg PO DAILY metoprolol succinate 100 mg Tablet Extended Release 24 Hr 100 mg PO BID amitriptyline 50 mg Tablet 50 mg PO BEDTIME omeprazole 20 mg Capsule,Delayed Release(Dr/Ec) 20 mg PO BID topiramate 100 mg Tablet 100 mg PO DAILY@1700 losartan 100 mg Tablet 100 mg PO DAILY niacin 1,000 mg Tablet Extended Release 24 Hr 1,000 mg PO BEDTIME melatonin 3 mg Tablet 6 mg PO BEDTIME Qty: 30 0RF hydromorphone [Dilaudid] 2 mg tablet 1 tab PO DAILY PRN (Reason: pain) alprazolam [Xanax] 0.25 mg tablet 1 tab PO TID wiuclaryod-ncufqcutpxnhw-osax [Fioricet] 50-300-40 mg capsule 1 cap PO TID PRN (Reason: migraine) acetaminophen 325 mg Tablet 650 mg PO Q6H PRN (Reason: Pain) gabapentin 400 mg Capsule 400 mg PO TID diphenoxylate-atropine [Lomotil] 2.5-0.025 mg Tablet 1 tab PO BID metformin 500 mg Tablet Extended Release 24 Hr 1,000 mg PO DAILY loratadine 10 mg Tablet 10 mg PO DAILY duloxetine 20 mg Capsule,Delayed Release(Dr/Ec) 20 mg PO BID multivitamin Tablet 1 tab PO DAILY sennosides [senna] 8.6 mg Tablet 17.2 mg PO BEDTIME nitroglycerin [Nitrostat] 0.4 mg Tablet, Sublingual 0.4 mg SUBLINGUAL Q5M PRN (Reason: Chest Pain) Rx Instructions: do not exceed 3 doses per episode ergocalciferol (vitamin D2) 1,250 mcg (50,000 unit) Capsule 1,250 mcg PO QWEEK insulin lispro [Humalog U-100 Insulin] 100 unit/mL Solution 10 unit SUBCUT TID metoclopramide HCl 10 mg Tablet 10 mg PO BID PRN (Reason: Spasms) magnesium oxide 400 mg magnesium tablet 400 mg PO DAILY Qty: 14 0RF Lantus Solostar U-100 Insulin 100 unit/mL (3 mL) Insulin Pen 30 unit SUBCUT DAILY ondansetron HCl 4 mg tablet 4 mg PO Q6H PRN (Reason: nausea and vomiting) Qty: 14 0RF
[2021-09-15 22:48] VITALS: BP 123/54; PULSE 66; RESP 16; TEMP 36.9; O2SAT 99; BMI 36.0
[2021-09-15 22:56] LABS: Glucose, Whole Blood 386 mg/dL (60-115)
[2021-09-15 23:39] VITALS: BP 115/53; PULSE 68; RESP 20; TEMP 36.6; O2SAT 98
[2021-09-15] MEDS: 0.9 % Sodium Chloride 1,000 ML 999 ML IV (23:58)
[2021-09-15] MEDS: Insulin Lispro 100 UNIT/ML 3 ML VIAL 10 UNIT SUBCUT (23:58)
[2021-09-16 00:01] LABS: MANUAL DIFF FLAG NO
[2021-09-16 00:13] LABS: Basophils Percent Auto 0.1 % (0-2); Eosinophils Absolute Auto 0.1 X10*3/uL (0.0-0.4); Eosinophils Percent Auto 1.8 % (0-4); Hematocrit 29.8 % (37.0-47.0); Hemoglobin 10.2 g/dl (12.0-16.0); Imm Gran Abs Auto 0.01 X10*3/uL (0.00-0.03); Imm Gran Pct Auto 0.1 % (0.0-0.4); Lymphocytes Absolute Auto 3.6 X10*3/uL (1.2-4.9); Lymphocytes Percent Auto 52.1 % (20-40); Mean Corpuscular HGB Conc 34.2 g/dl (31.0-35.0); Mean Corpuscular Hemoglobin 33.3 pg (27.0-33.0); Mean Corpuscular Volume 97.4 fL (80.0-98.0); Mean Platelet Volume 11.1 fL (9.4-12.3); Monocytes Absolute Auto 0.9 X10*3/uL (0.1-1.2); Monocytes Percent Auto 12.4 % (2-11); Neutrophils Absolute Auto 2.3 x10*3/uL (2.0-8.3); Neutrophils Percent Auto 33.5 % (45-73); Platelet Count 182 X10*3/uL (160-400); Red Blood Count 3.06 X10*6/uL (4.20-5.50); Red Cell Distribution Width 14.5 % (11.0-16.0); White Blood Count 6.8 X10*3/uL (4.8-10.8)
[2021-09-16 00:33] LABS: Alanine Aminotransferase 11 U/L (0-31); Albumin Level 3.6 g/dL (3.5-5.0); Alkaline Phosphatase 88 U/L (39-117); Anion Gap 12 (12-20); Aspartate Amino Transferase 13 U/L (5-31); Bilirubin Total 0.2 mg/dL (0.0-1.0); Blood Urea Nitrogen 10 mg/dL (9-16); Calcium 9.4 mg/dL (8.4-10.2); Carbon Dioxide 22 mmol/L (22-29); Chloride 109 mmol/L (96-108); Creatinine Clr Calc Pharmacy 78.7; Estimated Glomerular Filt Rate > 60; Glucose Random 415 mg/dL (60-115); Potassium 3.7 mmol/L (3.3-5.1); Sodium 139 mmol/L (135-145); Total Protein 6.3 g/dL (6.5-8.0)
[2021-09-16 01:28] VITALS: BP 121/58; PULSE 61; RESP 18; O2SAT 100
--- NOTE | 2021-09-16 01:56 | PC.NURSE ---
pt POC BS 214
[2021-09-16 01:59] LABS: Glucose, Whole Blood 214 mg/dL (60-115)
[2021-09-16 02:00] LABS: Appearance Urine CLEAR; Color Urine STRAW; Glucose Urine UA >=1000 MG/DL (NEG); Leukocyte Esterase Urine NEG (NEG); Nitrite Urine NEG (NEG); Specific Gravity - Urine <= 1.005 (1.005-1.025); Urine Blood NEG (NEG); Urine Ketones NEG (NEG); Urine Protein NEG (NEG-TRACE)
[2021-09-16 02:05] LABS: RBC Urine 0 /HPF (0); WBC Urine 0-2 /HPF (0-4)
[2021-09-16 04:10] VITALS: BP 114/58; PULSE 59; RESP 16; O2SAT 99
== END 2021-09-16 08:31 | disposition home or self-care (01) ==
PROVIDERS: Emergency Provider Internal Medicine; PCP Internal Medicine
DX: E11.65 Type 2 diabetes mellitus with hyperglycemia (principal); I10 Essential (primary) hypertension; Z79.4 Long term (current) use of insulin; Z79.02 Long term (current) use of antithrombotics/antiplatelets; Z89.519 Acquired absence of unspecified leg below knee; Z99.3 Dependence on wheelchair
CPT/HCPCS: 36415; 80053; 81001; 81003; 82947; 85025; 96360; 99284

== ENCOUNTER 2022-08-22 10:12 | Emergency (ER) | payer MEDICAID, SELFPAY ==
--- NOTE | ~2022-08-22 | XR_ITS ---
EXAMINATION: XR SHOULDER, LEFT CLINICAL INFORMATION: Pain COMPARISON: None available. TECHNIQUE: AP external rotation, Grashey, scapular Y, and axillary views of the left shoulder. FINDINGS: Mild acromioclavicular arthritis. Mild glenohumeral joint arthritis. No acute fracture or dislocation. No abnormal soft tissue calcification. XR/XR shoulder LT min 2V IMPRESSION: Mild acromioclavicular and glenohumeral joint arthritis.
[2022-08-22 10:26] VITALS: BP 140/70; BP 180/77; PULSE 60; PULSE 62; RESP 16; TEMP 36.6; O2SAT 100; O2SAT 98; BMI 23.2
--- NOTE | 2022-08-22 10:50 | ED_ITS ---
HPI - Extremity Problem General Chief complaint: Extremity Injury, Upper Stated complaint: L SHOULDER PAIN X'S WEEKS,NO INJURY PER EMS Time Seen by Provider: 08/22/22 10:21 Source: patient and EMS Mode of arrival: EMS Limitations: no limitations History of Present Illness HPI Narrative: 61-year-old female past medical history significant for diabetes, anxiety, htn,? CAD, history of gastrostomy tube placement, colitis Complaints of left shoulder pain which is atraumatic greater than 1 month. Patient reports she was diagnosed with a rotator cuff injury. She has been doing physical therapy for the last 1 month with continued pain. She is taking Tylenol which does not seem to help her pain. She denies any radiation of pain. No associated numbness or tingling or weakness. Related Data Home Medications Medication Instructions Recorded Confirmed promethazine 25 mg tablet 25 mg PO TID 04/10/20 07/21/21 amitriptyline 50 mg tablet 50 mg PO BEDTIME 05/12/20 07/21/21 atorvastatin 80 mg tablet 80 mg PO BEDTIME 05/12/20 07/21/21 isosorbide mononitrate 30 mg 30 mg PO DAILY 05/12/20 07/21/21 tablet,extended release 24 hr losartan 100 mg tablet 100 mg PO DAILY 05/12/20 07/21/21 metoprolol succinate 100 mg 100 mg PO BID 05/12/20 07/21/21 tablet,extended release 24 hr niacin 1,000 mg tablet,extended 1,000 mg PO BEDTIME 05/12/20 07/21/21 release 24 hr omeprazole 20 mg capsule,delayed 20 mg PO BID 05/12/20 07/21/21 release topiramate 100 mg tablet 100 mg PO DAILY@1700 05/12/20 07/21/21 acetaminophen 325 mg tablet 650 mg PO Q6H PRN Pain 06/29/21 07/21/21 alprazolam 0.25 mg tablet (Xanax) 1 tab PO TID 06/29/21 07/21/21 gdwfgyxngs-cochfqgfzmrac-qcuwxyet 1 cap PO TID PRN migraine 06/29/21 07/21/21 50 mg-300 mg-40 mg capsule (Fioricet) diphenoxylate-atropine 2.5 1 tab PO BID 06/29/21 07/21/21 mg-0.025 mg tablet (Lomotil) duloxetine 20 mg capsule,delayed 20 mg PO BID 06/29/21 07/21/21 release gabapentin 400 mg capsule 400 mg PO TID 06/29/21 07/21/21 hydromorphone 2 mg tablet 1 tab PO DAILY PRN pain 06/29/21 07/21/21 (Dilaudid) loratadine 10 mg tablet 10 mg PO DAILY 06/29/21 07/21/21 metformin 500 mg tablet,extended 1,000 mg PO DAILY 06/29/21 07/21/21 release 24 hr ergocalciferol (vitamin D2) 1,250 1,250 mcg PO QWEEK 07/15/21 07/21/21 mcg (50,000 unit) capsule insulin lispro 100 unit/mL 10 unit subcut TID 07/15/21 07/22/21 subcutaneous solution (Humalog U-100 Insulin) metoclopramide HCl 10 mg tablet 10 mg PO BID PRN Spasms 07/15/21 07/21/21 multivitamin 1 tab PO DAILY 07/15/21 07/21/21 nitroglycerin 0.4 mg sublingual 0.4 mg sublingual Q5M PRN Chest 07/15/21 07/21/21 tablet (Nitrostat) Pain sennosides 8.6 mg tablet (senna) 17.2 mg PO BEDTIME 07/15/21 07/21/21 insulin glargine 100 unit/mL (3 30 unit subcut DAILY 07/22/21 07/22/21 mL) subcutaneous pen (Lantus Solostar U-100 Insulin) Previous Rx's Medication Instructions Recorded melatonin 3 mg tablet 6 mg PO BEDTIME #30 tabs 02/09/21 magnesium oxide 400 mg PO DAILY #14 tabs 07/19/21 ondansetron HCl 4 mg tablet 4 mg PO Q6H PRN nausea and 07/27/21 vomiting #14 tabs acetaminophen 325 mg tablet 650 mg PO Q4H PRN pain #30 tabs 08/22/22 (Tylenol) diclofenac sodium 1 % topical gel 2 g topical QID #100 grams 08/22/22 (Voltaren Arthritis Pain) prednisone 20 mg tablet 40 mg PO DAILY #10 tabs 08/22/22 Allergies Allergy/AdvReac Type Severity Reaction Status Date / Time Penicillins [PENICILLINS] Allergy Mild HIVES Verified 05/25/20 04:33 clarithromycin [From Biaxin] Allergy Unknown HIVES Verified 05/25/20 04:33 penicillin V Allergy Unknown rash, Verified 05/25/20 04:33 throat tight bioxin Allergy Unknown Unknown Uncoded 05/25/20 04:33 penicillin Allergy Unknown Unknown Uncoded 05/25/20 04:33 Review of Systems Review of Systems: Yes all other systems are reviewed and are negative Constitutional: Constitutional: Reports no additional constitutional complaints, Denies body ache(s), Denies chills, Denies fever(s), Denies headache(s) and Denies weakness Eyes: Eyes: Reports no additional eye complaints and Denies change in vision ENT: Reports system reviewed and no additional complaints, except as documented, Denies dizziness, Denies headache(s), Denies nasal congestion, Denies nasal discharge and Denies neck pain Cardiovascular: Cardiovascular: Reports no additional cardiovascular complaints, Denies chest pain, Denies leg edema and Denies dyspnea Respiratory: Respiratory: Reports no additional respiratory complaints, Denies cough and Denies dyspnea Gastrointestinal: Gastrointestinal: Reports no additional gastrointestinal complaints, Denies abdominal pain, Denies diarrhea, Denies nausea and Denies vomiting Genitourinary: Genitourinary: Reports no additional female genitourinary complaints and Denies urinary incontinence Musculoskeletal: Musculoskeletal: Reports no additional musculoskeletal complaints, Denies back pain, Reports arthralgias, Denies joint swelling, Denies neck pain, Denies numbness, Reports radiating pain into limb and Denies tingling Integumentary/Breasts: Skin/Breast: Reports system reviewed and no additional complaints, except as docu and Denies rash Neurologic: Reports system reviewed and no additional complaints, except as documented, Denies Abnormal speech present, Denies dizziness, Denies headache(s), Denies numbness, Denies tingling and Denies weakness [facility] Past Medical History Attestation statement: The following information was validated with the patient. Source: old records reviewed and nursing notes reviewed Medical History Anxiety Below knee amputation CAD (coronary artery disease) Cholelithiasis Chronic pain syndrome CVA (cerebral vascular accident) Delirium due to another medical condition Depression Diabetic foot ulcer Diabetic neuropathy associated with diabetes mellitus due to underlying condition Encephalopathy acute Gastroparesis History of gastrostomy tube placement History of peptic ulcer disease HTN (hypertension) Hyperglycemia Hypotonic neurogenic bladder IDDM (insulin dependent diabetes mellitus) Liver lesion Myocardial infarction Wheelchair bound Surgical History History of back surgery Hx of BKA Family History Family History Father Coronary arteriosclerosis Social History Social History Household Members: None Housing: Apartment Are you a primary career development consultant to a significant other at home: No Do you presently have visiting nurse or other home services: Yes Unable to assess alcohol history related to: Unable to respond Alcohol intake: former Patient Tobacco Use Status: Never used Tobacco Smoked in Last 30 Days: No Second Hand Smoke Exposure: No Use of substances other than those prescribed or required for medical reasons: No Advance Directives: Yes Advance Directives on File: Yes Advance Directives Date on File: 05/12/20 service: No Current occupational status: unemployed and disabled Physical Exam Vital Signs: Vital Signs: Last Vital Signs Temp 97.4 F 08/22/22 12:53 Pulse 62 08/22/22 12:53 Resp 20 08/22/22 12:53 BP 138/64 08/22/22 12:53 Pulse Ox 97 08/22/22 12:53 O2 Del Method Room Air 08/22/22 12:53 BMI result Body Mass Index 23.2 Const: General: cooperative, healthy appearing, comfortable and no acute distress Orientation/consciousness: patient oriented x3 Limitations: no limitations HEENT: Head: Yes normal to inspection Ears: hearing grossly normal bilaterally General nose exam: Normal external nose present Face and sinus: Yes normal facial exam Mouth: Normal oral and palatal mucosa present Throat: Yes posterior oropharynx normal Eyes: General: appearance normal, both eyes and all related structures Pupils: Equal, round and reactive pupils present Neck: Neck: Yes normal visual inspection Chest: Chest palpation & inspection: normal inspection of the chest Resp: Effort & Inspection: normal respiratory effort Auscultation: clear to auscultation bilaterally Cardio: Rate: regular rate Rhythm: regular rhythm Peripheral pulses: Peripheral pulses 2+ throughout GI: Inspection: Yes normal to inspection Palpation (GI): Soft to palpation and nontender Auscultation: normal bowel sounds Back/Spine/Pelvis: Thoracic/Lumbar Spine: thoracic and lumbar spine normal to inspection Skin: General skin exam: no rashes or lesions noted Neuro: General: patient oriented x3, no focal motor deficits and normal sensation to monofilament Cranial nerves: Yes Equal, round and reactive pupils present Cognition (Neuro): normal cognition Speech: No Abnormal speech present Gait exam (Neuro): Normal gait present Motor exam (neuro): 5/5 motor strength present throughout Extrem: Other: There is pain on palpation over the left proximal humerus and posterior shoulder with pain that is worsened with abduction of the extremity. There are palpable radial and ulnar pulses distally. Sensation is intact distally. General: Yes normal to inspection Course Course Course Narrative: x-ray shows arthritic changes. Patient still having some pain and so she was given a dose of oxycodone with Tylenol in the emergency room with relief. Patient does live at home alone. I did offer physical therapy evaluation in the ER and case management of all of minute to see if there are any additional services the patient may receive. Patient declined this. 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 I will send the patient home with prescriptions and recommendations to continue physical therapy and follow-up with her primary care doctor. Medications Administered Discontinued Medications Generic Name Dose Route Start Last Admin Trade Name Pjq PRN Reason Stop Dose Admin Acetaminophen 975 mg 08/22/22 13:31 08/22/22 14:29 Acetaminophen 325 Mg Tablet PO 08/22/22 13:32 975 mg ONCE ONE Administration Ketorolac Tromethamine 30 mg 08/22/22 11:32 08/22/22 11:50 Ketorolac Tromethamine 30 Mg/Ml Vial IM 08/22/22 11:33 30 mg ONCE ONE Administration Oxycodone HCl 5 mg 08/22/22 13:31 08/22/22 14:29 Oxycodone Hcl Immed Release 5 Mg Tablet PO 08/22/22 13:32 5 mg ONCE ONE Administration Medical Decision Making Medical Decision Making [facility] Narrative: 62-year-old female here with atraumatic left shoulder pain for greater than 1 month despite being and physical therapy and taking Tylenol for pain. Will obtain an x-ray of shoulder, provide analgesia Differential Diagnosis Differential Diagnoses: The differential diagnosis associated with the presentation includes bursitis, tendonitis, rotator cuff Low concern for fracture Lab Data Labs: Lab Results 08/22/22 Range/Units 12:34 POC Glucose 85 (60-115) mg/dL Independent Interpretation I performed an independent interpretation of an: Plain X-Ray Interpretation: I independently reviewed the x-ray and agree with radiologist's report Radiology Impression Discussion of test interpretation with radiology: I have reviewed the radiol ogist's reading. Radiologist Impression: [address] [address] XRay Report Signed Patient: Constanza Mcqueen MR#: [id number] : 1960 Acct:[id number] Age/Sex: 62 / F ADM Date: 08/22/22 Loc: HO.ED Attending Dr: Ordering Physician: Yeny Jefferson NP Date of Service: 08/22/22 Procedure(s): XR shoulder LT min 2V Accession Number(s): [id number] cc: Yeny Jefferson NP~ EXAMINATION: XR SHOULDER, LEFT CLINICAL INFORMATION: Pain? COMPARISON: None available.? TECHNIQUE: AP external rotation, Grashey, scapular Y, and axillary views of the left shoulder. FINDINGS: Mild acromioclavicular arthritis. Mild glenohumeral joint arthritis. No acute fracture or dislocation. No abnormal soft tissue calcification.? XR/XR shoulder LT min 2V IMPRESSION: Mild acromioclavicular and glenohumeral joint arthritis. Discharge Plan Discharge Clinical Impression: Osteoarthritis of left shoulder Patient Disposition: Home, Self-Care Instructions: Osteoarthritis (ED) Additional Instructions: Continue physical therapy Heat or ice, gentle stretching We did offer for you to meet with physical therapy/correctional counselor/case manager here to see if you could benefit from any other additional home resources or short term rehab but you declined this. Prescriptions: New diclofenac sodium [Voltaren Arthritis Pain] 1 % gel 2 g topical QID Qty: 100 0RF Rx Instructions: apply to single elbow, wrist or hand; for hand includes palm/fingers/back of hand prednisone 20 mg tablet 40 mg PO DAILY Qty: 10 0RF acetaminophen [Tylenol] 325 mg tablet 650 mg PO Q4H PRN (Reason: pain) Qty: 30 0RF No Action promethazine 25 mg Tablet 25 mg PO TID atorvastatin 80 mg Tablet 80 mg PO BEDTIME isosorbide mononitrate 30 mg Tablet Extended Release 24 Hr 30 mg PO DAILY metoprolol succinate 100 mg Tablet Extended Release 24 Hr 100 mg PO BID amitriptyline 50 mg Tablet 50 mg PO BEDTIME omeprazole 20 mg Capsule,Delayed Release(Dr/Ec) 20 mg PO BID topiramate 100 mg Tablet 100 mg PO DAILY@1700 losartan 100 mg Tablet 100 mg PO DAILY niacin 1,000 mg Tablet Extended Release 24 Hr 1,000 mg PO BEDTIME melatonin 3 mg Tablet 6 mg PO BEDTIME Qty: 30 0RF hydromorphone [Dilaudid] 2 mg tablet 1 tab PO DAILY PRN (Reason: pain) alprazolam [Xanax] 0.25 mg tablet 1 tab PO TID [id number]-fvmhbdnmzqvpa-ujfa [Fioricet] 50-300-40 mg capsule 1 cap PO TID PRN (Reason: migraine) acetaminophen 325 mg Tablet 650 mg PO Q6H PRN (Reason: Pain) gabapentin 400 mg Capsule 400 mg PO TID diphenoxylate-atropine [Lomotil] 2.5-0.025 mg Tablet 1 tab PO BID metformin 500 mg Tablet Extended Release 24 Hr 1,000 mg PO DAILY loratadine 10 mg Tablet 10 mg PO DAILY duloxetine 20 mg Capsule,Delayed Release(Dr/Ec) 20 mg PO BID multivitamin Tablet 1 tab PO DAILY sennosides [senna] 8.6 mg Tablet 17.2 mg PO BEDTIME nitroglycerin [Nitrostat] 0.4 mg Tablet, Sublingual 0.4 mg SUBLINGUAL Q5M PRN (Reason: Chest Pain) Rx Instructions: do not exceed 3 doses per episode ergocalciferol (vitamin D2) 1,250 mcg (50,000 unit) Capsule 1,250 mcg PO QWEEK insulin lispro [Humalog U-100 Insulin] 100 unit/mL Solution 10 unit SUBCUT TID metoclopramide HCl 10 mg Tablet 10 mg PO BID PRN (Reason: Spasms) magnesium oxide 400 mg magnesium tablet 400 mg PO DAILY Qty: 14 0RF Lantus Solostar U-100 Insulin 100 unit/mL (3 mL) Insulin Pen 30 unit SUBCUT DAILY ondansetron HCl 4 mg tablet 4 mg PO Q6H PRN (Reason: nausea and vomiting) Qty: 14 0RF Referrals: [facility] [Provider Group] - 1 week Interventions: ED Discharge Assessment Last Done: 08/22/22 16:55
[2022-08-22] MEDS: Ketorolac Tromethamine 30 MG/ML VIAL IM (11:50)
--- NOTE | 2022-08-22 12:35 | PC.NURSE ---
pt aox4, reporting left shoulder and arm pain. given torodol per may. will ctm
[2022-08-22 12:37] LABS: Glucose, Whole Blood 85 mg/dL (60-115)
[2022-08-22 12:53] VITALS: BP 138/64; PULSE 62; RESP 20; TEMP 36.3; O2SAT 97
[2022-08-22] MEDS: oxyCODONE HCl Immed Release 5 MG TABLET PO (14:29)
[2022-08-22] MEDS: Acetaminophen 325 MG TABLET 975 MG PO (14:29)
--- NOTE | 2022-08-22 17:57 | PC.NURSE ---
pt awaiting pickup from daughter
== END 2022-08-22 18:26 | disposition home or self-care (01) ==
PROVIDERS: Emergency Provider Emergency Medicine
DX: M19.012 Primary osteoarthritis, left shoulder (principal); M25.512 Pain in left shoulder; E11.9 Type 2 diabetes mellitus without complications; I10 Essential (primary) hypertension; Z79.02 Long term (current) use of antithrombotics/antiplatelets; Z79.899 Other long term (current) drug therapy; Z79.4 Long term (current) use of insulin
CPT/HCPCS: 73030; 82947; 96372; 99284; J1885

== ENCOUNTER 2022-09-16 10:05 | Emergency (ER) | payer MEDICAID, SELFPAY ==
--- NOTE | ~2022-09-16 | XR_ITS ---
EXAMINATION: XR CHEST CLINICAL INFORMATION: Weakness, AMS. COMPARISON: July 18, 2021 and July 10, 2021 TECHNIQUE: AP portable view of the chest was obtained. FINDINGS: Right subclavian port catheter seen in place with tip overlying the distal superior vena cava. There is a screw seen overlying the right lung apex likely external to it. There is a 7 mm density seen about the mid left lung not definitely identified on previous studies and may be vascular in nature however nodule of other etiology not excluded and CT of the chest would be of help in further evaluation if clinically indicated. Heart normal size. No evidence of pulmonary edema. No pneumothorax or pleural effusion. XR/XR chest 1V IMPRESSION: No confluent parenchymal disease identified. Question 7 mm left lung nodule as described above.
[2022-09-16 10:08] VITALS: BP 110/60; PULSE 70; O2SAT 99
[2022-09-16 10:16] LABS: Glucose, Whole Blood 50 mg/dL (60-115)
[2022-09-16 10:19] VITALS: BP 120/47; PULSE 62; RESP 16; O2SAT 100; BMI 30.3
[2022-09-16 10:41] LABS: Glucose, Whole Blood 51 mg/dL (60-115)
--- NOTE | 2022-09-16 10:46 | ECG_ITS ---
Test Reason : WEAKNESS Blood Pressure : / mmHG Vent. Rate : 066 BPM Atrial Rate : 066 BPM P-R Int : 190 ms QRS Dur : 112 ms QT Int : 430 ms P-R-T Axes : 062 057 014 degrees QTc Int : 450 ms Normal sinus rhythm Low voltage QRS Nonspecific ST-T changes Abnormal ECG When compared with ECG of 15-JUL-2021 11:13, Borderline criteria for Inferior infarct are no longer Present T wave inversion less evident in Inferior leads Referred By: Mahsa Rosales Electronically Signed By:Chet Herrera
--- NOTE | 2022-09-16 10:51 | PC.NURSE ---
AFTER 3 ATTEMPTS BY PROVIDERS #20G EJ ON THE RIGHT WAS OBTAINED. SHE WAS GIVEN GLUCAGON IM DURING PROCEDURE AND THEN DEXTROSE. SHE IS MORE ALERT NOW AND SKIN IS LESS CLAMMY, REMAINS PALE
--- NOTE | 2022-09-16 10:54 | ED_ITS ---
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 She states she woke up at 6am today and did not feel well. She went and checked her sugar and it was 40 so she called her daughter. She drank some juice and still didn't feel good. Her daughter called EMS. Glucose for EMS 35 and she was given oral glucose with improvement. She arrives to the ER with glucose 50. Patient states she takes her prefilled Lantus daily at 1pm, last took it yeste rday. She monitors her glucose AC/HS and they were good yesterday. She ate and drank normally. No fever, chills, N/V/D, abdominal pain or chest pain. MD complaint: hypoglycemia, weakness Onset (ago): hour(s) Pain Consistency: constant Relieving factors: other (glucose) Exacerbating factors: none Associated symptoms: diaphoresis, loss of appetite, malaise and weakness Treatments prior to arrival: other (glucose) Related Data Home Medications Medication Instructions Recorded Confirmed promethazine 25 mg tablet 25 mg PO TID 04/10/20 07/21/21 amitriptyline 50 mg tablet 50 mg PO BEDTIME 05/12/20 07/21/21 atorvastatin 80 mg tablet 80 mg PO BEDTIME 05/12/20 07/21/21 isosorbide mononitrate 30 mg 30 mg PO DAILY 05/12/20 07/21/21 tablet,extended release 24 hr losartan 100 mg tablet 100 mg PO DAILY 05/12/20 07/21/21 metoprolol succinate 100 mg 100 mg PO BID 05/12/20 07/21/21 tablet,extended release 24 hr niacin 1,000 mg tablet,extended 1,000 mg PO BEDTIME 05/12/20 07/21/21 release 24 hr omeprazole 20 mg capsule,delayed 20 mg PO BID 05/12/20 07/21/21 release topiramate 100 mg tablet 100 mg PO DAILY@1700 05/12/20 07/21/21 acetaminophen 325 mg tablet 650 mg PO Q6H PRN Pain 06/29/21 07/21/21 alprazolam 0.25 mg tablet (Xanax) 1 tab PO TID 06/29/21 07/21/21 zaaybzlhgc-hdeaocwfltfmg-coxjzqvg 1 cap PO TID PRN migraine 06/29/21 07/21/21 50 mg-300 mg-40 mg capsule (Fioricet) diphenoxylate-atropine 2.5 1 tab PO BID 06/29/21 07/21/21 mg-0.025 mg tablet (Lomotil) duloxetine 20 mg capsule,delayed 20 mg PO BID 06/29/21 07/21/21 release gabapentin 400 mg capsule 400 mg PO TID 06/29/21 07/21/21 hydromorphone 2 mg tablet 1 tab PO DAILY PRN pain 06/29/21 07/21/21 (Dilaudid) loratadine 10 mg tablet 10 mg PO DAILY 06/29/21 07/21/21 metformin 500 mg tablet,extended 1,000 mg PO DAILY 06/29/21 07/21/21 release 24 hr ergocalciferol (vitamin D2) 1,250 1,250 mcg PO QWEEK 07/15/21 07/21/21 mcg (50,000 unit) capsule insulin lispro 100 unit/mL 10 unit subcut TID 07/15/21 07/22/21 subcutaneous solution (Humalog U-100 Insulin) metoclopramide HCl 10 mg tablet 10 mg PO BID PRN Spasms 07/15/21 07/21/21 multivitamin 1 tab PO DAILY 07/15/21 07/21/21 nitroglycerin 0.4 mg sublingual 0.4 mg sublingual Q5M PRN Chest 07/15/21 07/21/21 tablet (Nitrostat) Pain sennosides 8.6 mg tablet (senna) 17.2 mg PO BEDTIME 07/15/21 07/21/21 insulin glargine 100 unit/mL (3 30 unit subcut DAILY 07/22/21 07/22/21 mL) subcutaneous pen (Lantus Solostar U-100 Insulin) Previous Rx's Medication Instructions Recorded melatonin 3 mg tablet 6 mg PO BEDTIME #30 tabs 11/23/21 magnesium oxide 400 mg PO DAILY #14 tabs 07/19/21 ondansetron HCl 4 mg tablet 4 mg PO Q6H PRN nausea and 07/27/21 vomiting #14 tabs acetaminophen 325 mg tablet 650 mg PO Q4H PRN pain #30 tabs 08/22/22 (Tylenol) diclofenac sodium 1 % topical gel 2 g topical QID #100 grams 08/22/22 (Voltaren Arthritis Pain) prednisone 20 mg tablet 40 mg PO DAILY #10 tabs 08/22/22 cefuroxime axetil 250 mg tablet 250 mg PO BID 7 days #14 tabs 09/16/22 Allergies Allergy/AdvReac Type Severity Reaction Status Date / Time Penicillins [PENICILLINS] Allergy Mild HIVES Verified 05/25/20 04:33 clarithromycin [From Biaxin] Allergy Unknown HIVES Verified 05/25/20 04:33 penicillin V Allergy Unknown rash, Verified 05/25/20 04:33 throat tight bioxin Allergy Unknown Unknown Uncoded 05/25/20 04:33 penicillin Allergy Unknown Unknown Uncoded 05/25/20 04:33 Review of Systems Review of Systems: Yes all other systems are reviewed and are negative PMFSH Past Medical History Medical History Anxiety Below knee amputation CAD (coronary artery disease) Cholelithiasis Chronic pain syndrome CVA (cerebral vascular accident) Delirium due to another medical condition Depression Diabetic foot ulcer Diabetic neuropathy associated with diabetes mellitus due to underlying condition Encephalopathy acute Gastroparesis History of gastrostomy tube placement History of peptic ulcer disease HTN (hypertension) Hyperglycemia Hypotonic neurogenic bladder IDDM (insulin dependent diabetes mellitus) Liver lesion Myocardial infarction Wheelchair bound Surgical History History of back surgery Hx of BKA Family History Family History Father Coronary arteriosclerosis Social History Social History Household Members: None Housing: Apartment Are you a primary resident care aide to a significant other at home: No Do you presently have visiting nurse or other home services: Yes Unable to assess alcohol history related to: Unable to respond Alcohol intake: former Patient Tobacco Use Status: Never used Tobacco Smoked in Last 30 Days: No Second Hand Smoke Exposure: No Advance Directives: Yes Advance Directives on File: Yes Advance Directives Date on File: 05/12/20 Patient : No service: No Current occupational status: unemployed and disabled Physical Exam ED Vital Signs: Vital Signs - 24 hr 09/16/22 10:19 09/16/22 10:56 09/16/22 12:15 Pulse Rate 62 68 75 Respiratory Rate 16 20 20 Blood Pressure 120/47 L 128/52 L 138/58 L Pulse Oximetry 100 97 97 Oxygen Delivery Method Room Air Room Air Room Air 09/16/22 14:36 09/16/22 16:07 Pulse Rate 70 66 Respiratory Rate 21 H 14 Blood Pressure 123/38 L 124/48 L Pulse Oximetry 99 97 Oxygen Delivery Method Room Air Room Air BMI result Body Mass Index 30.3 Appearance: Alert, pale, appears older than stated age. Oriented X3. No acute distress. Head: normocephalic, atraumatic. Eyes: Pupils equal, round and reactive to light. ENT: Pharynx normal. No tonsillar swelling or exudate. Neck: Normal inspection. Neck supple. CVS: Normal heart rate and rhythm. Pulses normal. port in right chest wall Respiratory: No respiratory distress. Breath sounds normal. Abdomen: Soft and nontender. +BS x4 Skin: Skin warm and dry. Normal skin color. Normal skin turgor. No rashes. Extremities: No lower extremity edema. No joint swelling. Neuro/psych: Oriented X 3. No motor deficit. No sensory deficit. CN II-XII intact. Normal speech and cognition. Course Reevaluation(s) Reevaluation #1: patient has had 2 normal glucose readings after IM glucacon and IV D50. will monitor. placed in physician observation at this time. Time: 12:47 Reevaluation #2: glucose has been normal during observation in the ER. UA ++ will start ABX. stable for d/c home. Time: 16:09 Medications Administered Discontinued Medications Generic Name Dose Route Start Last Admin Trade Name Freq PRN Reason Stop Dose Admin Acetaminophen 975 mg 09/16/22 12:48 09/16/22 12:53 Acetaminophen 325 Mg Tablet PO 09/16/22 12:49 975 mg ONCE ONE Administration Cefuroxime Axetil 250 mg 09/16/22 15:09 09/16/22 15:24 Cefuroxime Axetil 250 Mg Tablet PO 09/16/22 15:10 250 mg ONCE ONE Administration Dextrose 25 gm 09/16/22 10:54 09/16/22 11:02 Dextrose 50 % 25 Gm/50 Ml Syringe IVPUSH 09/16/22 10:55 25 gm ONCE ONE Administration Glucagon 1 mg 09/16/22 10:55 09/16/22 11:04 Glucagon,Human Recombinant 1 Mg/Ml Vial IM 09/16/22 10:56 1 mg ONCE ONE Administration Procedures EJ/Peripheral Line Neck R: Time Out Performed: Yes Skin Cleansed in Sterile Fashion: Yes Size (gauge): 20 IV Secured and Dressing Applied: Yes Patient Tolerated Procedure: well and no complications Medical Decision Making Medical Decision Making 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 Glucose in the 50s x2 despite oral glucose from EMS. She was pale and diaphoretic c/o dizziness. IM glucagon given. She is not on oral meds for DM. Multiple attempts at PIV and ultimately a neck PIV was placed for administration of D50. patient had normalization of her glucose after IM/IV adminstration. she was tolerating PO. her labs were remarkable for acute on chronic anemia without any signs or symptoms of acute bleeding. UA + for infection which could lead to hypoglycemia. will empirically treat yenifer voss awaiting urine culture. no fever, luekocytosis or tachycardia to suggest sepsis. she was closely monitored in the ER for several hours. her glucose remained normal x4. comfortable with discharge home with close monitoring of her glucose at home. abx for uti. strict return precautions discussed. Differential Diagnosis Differential Diagnoses: The differential diagnosis associated with the presentation includes exogenous insulin OD, acute infection, PRASHANT, dehydration Admission/Observation Consideration of admission/observation: Escalation of care including admission/observation considered recurrent hypoglycemia, considered admission Lab Data [facility] Lab Attestation statement: I reviewed the patient's lab results. acute on chronic anemia, mild hyponatremia 09/16/22 10:43 09/16/22 10:43 Labs: Lab Results 09/16/22 09/16/22 09/16/22 Range/Units 10:11 10:37 10:43 WBC 7.6 (4.8-10.8) X10*3/uL RBC 2.79 L (4.20-5.50) X10*6/uL Hgb 8.9 L (12.0-16.0) g/dl Hct 25.4 L (37.0-47.0) % MCV 91.0 (80.0-98.0) fL MCH 31.9 (27.0-33.0) pg MCHC 35.0 (31.0-35.0) g/dl RDW 12.2 (11.0-16.0) % Plt Count 182 (160-400) X10*3/uL MPV 9.6 (9.4-12.3) fL Immature Gran % (Auto) 0.1 (0.0-0.4) % Neut % (Auto) 69.1 (45-73) % Lymph % (Auto) 18.4 L (20-40) % [place] % (Auto) 10.9 (2-11) % Eos % (Auto) 1.2 (0-4) % Baso % (Auto) 0.3 (0-2) % Lymph # (Auto) 1.4 (1.2-4.9) X10*3/uL [place] # (Auto) 0.8 (0.1-1.2) X10*3/uL Eos # (Auto) 0.1 (0.0-0.4) X10*3/uL Baso # (Auto) 0.0 (0.0-0.2) X10*3/uL Abs Immat Gran (auto) 0.01 (0.00-0.03) X10*3/uL Absolute Neuts (auto) 5.2 (2.0-8.3) x10*3/uL Absolute Nucleated RBC 0.000 (0.0-0.012) X10*3/uL Nucleated RBC % (auto) 0.0 (0.0-0.2) /100WBC Sodium (135-145) mmol/L Potassium (3.3-5.1) mmol/L Chloride (96-108) mmol/L Carbon Dioxide (22-29) mmol/L Anion Gap (12-20) BUN (9-16) mg/dL Creatinine (0.5-1.4) mg/dL Estim Creat Clear Calc Estimated GFR POC Glucose 50 L* 51 L* (60-115) mg/dL Random Glucose (60-115) mg/dL Calcium (8.4-10.2) mg/dL Magnesium (1.6-2.6) mg/dL Total Bilirubin (0.0-1.0) mg/dL Direct Bilirubin (0.0-0.5) mg/dL AST (5-31) U/L ALT (0-31) U/L Alkaline Phosphatase (39-117) U/L Troponin I High Sens (<3.5-17.0) ng/L Total Protein (6.5-8.0) g/dL Albumin (3.5-5.0) g/dL TSH (0.32-4.0) uIU/mL Urine Color Urine Appearance Urine pH (5.0-9.0) Ur Specific [place] (1.005-1.025) Urine Protein (Neg-Trace) mg/dL Urine Glucose (UA) (Negative) mg/dL Urine Ketones (Negative) mg/dL Urine Blood (Negative) Urine Nitrite (Negative) Ur Leukocyte Esterase (Negative) Urine RBC (0-2) /HPF Urine WBC (0-5) /HPF Ur Squamous Epith Cells (0-2) /HPF Urine Bacteria (None Seen) Hyaline Casts (0-2) /LPF Urine Opiates Screen (Not Detect) Urine Fentanyl Screen (Not Detect) Ur Barbiturates Screen (Not Detect) Ur Phencyclidine Scrn (Not Detect) Ur Amphetamines Screen (Not Detect) U Benzodiazepines Scrn (Not Detect) Urine Cocaine Screen (Not Detect) U Marijuana (THC) Screen (Not Detect) Ethyl Alcohol mg/dL 09/16/22 09/16/22 09/16/22 Range/Units 10:43 10:43 11:19 WBC (4.8-10.8) X10*3/uL RBC (4.20-5.50) X10*6/uL Hgb (12.0-16.0) g/dl Hct (37.0-47.0) % MCV (80.0-98.0) fL MCH (27.0-33.0) pg MCHC (31.0-35.0) g/dl RDW (11.0-16.0) % Plt Count (160-400) X10*3/uL MPV (9.4-12.3) fL Immature Gran % (Auto) (0.0-0.4) % Neut % (Auto) (45-73) % Lymph % (Auto) (20-40) % [place] % (Auto) (2-11) % Eos % (Auto) (0-4) % Baso % (Auto) (0-2) % Lymph # (Auto) (1.2-4.9) X10*3/uL [place] # (Auto) (0.1-1.2) X10*3/uL Eos # (Auto) (0.0-0.4) X10*3/uL Baso # (Auto) (0.0-0.2) X10*3/uL Abs Immat Gran (auto) (0.00-0.03) X10*3/uL Absolute Neuts (auto) (2.0-8.3) x10*3/uL Absolute Nucleated RBC (0.0-0.012) X10*3/uL Nucleated RBC % (auto) (0.0-0.2) /100WBC Sodium 133 L (135-145) mmol/L Potassium 4.1 (3.3-5.1) mmol/L Chloride 103 (96-108) mmol/L Carbon Dioxide 23 (22-29) mmol/L Anion Gap 11 L (12-20) BUN 22 H (9-16) mg/dL Creatinine 0.76 (0.5-1.4) mg/dL Estim Creat Clear Calc 78.5 Estimated GFR > 60 POC Glucose 147 H (60-115) mg/dL Random Glucose 99 (60-115) mg/dL Calcium 9.4 (8.4-10.2) mg/dL Magnesium 1.9 (1.6-2.6) mg/dL Total Bilirubin 0.3 (0.0-1.0) mg/dL Direct Bilirubin 0.1 (0.0-0.5) mg/dL AST 16 (5-31) U/L ALT 10 (0-31) U/L Alkaline Phosphatase 68 (39-117) U/L Troponin I High Sens 5.9 (<3.5-17.0) ng/L Total Protein 6.6 (6.5-8.0) g/dL Albumin 3.8 (3.5-5.0) g/dL TSH 0.52 (0.32-4.0) uIU/mL Urine Color Urine Appearance Urine pH (5.0-9.0) Ur Specific [place] (1.005-1.025) Urine Protein (Neg-Trace) mg/dL Urine Glucose (UA) (Negative) mg/dL Urine Ketones (Negative) mg/dL Urine Blood (Negative) Urine Nitrite (Negative) Ur Leukocyte Esterase (Negative) Urine RBC (0-2) /HPF Urine WBC (0-5) /HPF Ur Squamous Epith Cells (0-2) /HPF Urine Bacteria (None Seen) Hyaline Casts (0-2) /LPF Urine Opiates Screen (Not Detect) Urine Fentanyl Screen (Not Detect) Ur Barbiturates Screen (Not Detect) Ur Phencyclidine Scrn (Not Detect) Ur Amphetamines Screen (Not Detect) U Benzodiazepines Scrn (Not Detect) Urine Cocaine Screen (Not Detect) U Marijuana (THC) Screen (Not Detect) Ethyl Alcohol < 10 mg/dL 09/16/22 09/16/22 09/16/22 Range/Units 12:17 12:18 12:28 WBC (4.8-10.8) X10*3/uL RBC (4.20-5.50) X10*6/uL Hgb (12.0-16.0) g/dl Hct (37.0-47.0) % MCV (80.0-98.0) fL MCH (27.0-33.0) pg MCHC (31.0-35.0) g/dl RDW (11.0-16.0) % Plt Count (160-400) X10*3/uL MPV (9.4-12.3) fL Immature Gran % (Auto) (0.0-0.4) % Neut % (Auto) (45-73) % Lymph % (Auto) (20-40) % [place] % (Auto) (2-11) % Eos % (Auto) (0-4) % Baso % (Auto) (0-2) % Lymph # (Auto) (1.2-4.9) X10*3/uL [place] # (Auto) (0.1-1.2) X10*3/uL Eos # (Auto) (0.0-0.4) X10*3/uL Baso # (Auto) (0.0-0.2) X10*3/uL Abs Immat Gran (auto) (0.00-0.03) X10*3/uL Absolute Neuts (auto) (2.0-8.3) x10*3/uL Absolute Nucleated RBC (0.0-0.012) X10*3/uL Nucleated RBC % (auto) (0.0-0.2) /100WBC Sodium (135-145) mmol/L Potassium (3.3-5.1) mmol/L Chloride (96-108) mmol/L Carbon Dioxide (22-29) mmol/L Anion Gap (12-20) BUN (9-16) mg/dL Creatinine (0.5-1.4) mg/dL Estim Creat Clear Calc Estimated GFR POC Glucose 214 H (60-115) mg/dL Random Glucose (60-115) mg/dL Calcium (8.4-10.2) mg/dL Magnesium (1.6-2.6) mg/dL Total Bilirubin (0.0-1.0) mg/dL Direct Bilirubin (0.0-0.5) mg/dL AST (5-31) U/L ALT (0-31) U/L Alkaline Phosphatase (39-117) U/L Troponin I High Sens (<3.5-17.0) ng/L Total Protein (6.5-8.0) g/dL Albumin (3.5-5.0) g/dL TSH (0.32-4.0) uIU/mL Urine Color Yellow Urine Appearance Clear Urine pH 7.0 (5.0-9.0) Ur Specific [place] <= 1.005 (1.005-1.025) Urine Protein Negative (Neg-Trace) mg/dL Urine Glucose (UA) 250 H (Negative) mg/dL Urine Ketones Negative (Negative) mg/dL Urine Blood Negative (Negative) Urine Nitrite Negative (Negative) Ur Leukocyte Esterase Moderate (2+) H (Negative) Urine RBC 0-2 (0-2) /HPF Urine WBC 0-5 (0-5) /HPF Ur Squamous Epith Cells 0-2 (0-2) /HPF Urine Bacteria None Seen (None Seen) Hyaline Casts 0-2 (0-2) /LPF Urine Opiates Screen Not Detected (Not Detect) Urine Fentanyl Screen Not Detected (Not Detect) Ur Barbiturates Screen Not Detected (Not Detect) Ur Phencyclidine Scrn Not Detected (Not Detect) Ur Amphetamines Screen Not Detected (Not Detect) U Benzodiazepines Scrn Not Detected (Not Detect) Urine Cocaine Screen Not Detected (Not Detect) U Marijuana (THC) Screen Not Detected (Not Detect) Ethyl Alcohol mg/dL 09/16/22 Range/Units 14:36 WBC (4.8-10.8) X10*3/uL RBC (4.20-5.50) X10*6/uL Hgb (12.0-16.0) g/dl Hct (37.0-47.0) % MCV (80.0-98.0) fL MCH (27.0-33.0) pg MCHC (31.0-35.0) g/dl RDW (11.0-16.0) % Plt Count (160-400) X10*3/uL MPV (9.4-12.3) fL Immature Gran % (Auto) (0.0-0.4) % Neut % (Auto) (45-73) % Lymph % (Auto) (20-40) % [place] % (Auto) (2-11) % Eos % (Auto) (0-4) % Baso % (Auto) (0-2) % Lymph # (Auto) (1.2-4.9) X10*3/uL [place] # (Auto) (0.1-1.2) X10*3/uL Eos # (Auto) (0.0-0.4) X10*3/uL Baso # (Auto) (0.0-0.2) X10*3/uL Abs Immat Gran (auto) (0.00-0.03) X10*3/uL Absolute Neuts (auto) (2.0-8.3) x10*3/uL Absolute Nucleated RBC (0.0-0.012) X10*3/uL Nucleated RBC % (auto) (0.0-0.2) /100WBC Sodium (135-145) mmol/L Potassium (3.3-5.1) mmol/L Chloride (96-108) mmol/L Carbon Dioxide (22-29) mmol/L Anion Gap (12-20) BUN (9-16) mg/dL Creatinine (0.5-1.4) mg/dL Estim Creat Clear Calc Estimated GFR POC Glucose 151 H (60-115) mg/dL Random Glucose (60-115) mg/dL Calcium (8.4-10.2) mg/dL Magnesium (1.6-2.6) mg/dL Total Bilirubin (0.0-1.0) mg/dL Direct Bilirubin (0.0-0.5) mg/dL AST (5-31) U/L ALT (0-31) U/L Alkaline Phosphatase (39-117) U/L Troponin I High Sens (<3.5-17.0) ng/L Total Protein (6.5-8.0) g/dL Albumin (3.5-5.0) g/dL TSH (0.32-4.0) uIU/mL Urine Color Urine Appearance Urine pH (5.0-9.0) Ur Specific [place] (1.005-1.025) Urine Protein (Neg-Trace) mg/dL Urine Glucose (UA) (Negative) mg/dL Urine Ketones (Negative) mg/dL Urine Blood (Negative) Urine Nitrite (Negative) Ur Leukocyte Esterase (Negative) Urine RBC (0-2) /HPF Urine WBC (0-5) /HPF Ur Squamous Epith Cells (0-2) /HPF Urine Bacteria (None Seen) Hyaline Casts (0-2) /LPF Urine Opiates Screen (Not Detect) Urine Fentanyl Screen (Not Detect) Ur Barbiturates Screen (Not Detect) Ur Phencyclidine Scrn (Not Detect) Ur Amphetamines Screen (Not Detect) U Benzodiazepines Scrn (Not Detect) Urine Cocaine Screen (Not Detect) U Marijuana (THC) Screen (Not Detect) Ethyl Alcohol mg/dL Independent Interpretation I performed an independent interpretation of an: EKG Interpretation: ekg with normal sinus rhythm, HR 66 bpm, nonspecific intraventricular conduction delay with wide QRS, no ST segment elevation or depression cxr with clear lungs, hyperinflation, right chest port present Independent Historian Clinical information obtained from an independent historian. History obtained from or confirmed by: EMS External Record Review External record reviewed: Inpatient record, Office record, Outpatient record, Prior outpatient labs and Prior outpatient radiology Prescription Management I considered prescription management with: Other (glucose) Chronic Conditions Patient?s care impacted by: Diabetes Social Determinants Patient?s care significantly limited by Social Determinants of Health including: Problems related to primary support group (lives home alone) Critical Care Time Critical Care Time Critical Care Time: Yes Total Critical Care Time: 38 Attestation: I have personally provided critical care time exclusive of time spent on separately billable procedures. Time includes review of lab data, radiology results, frequent bedside reassessments, and monitoring for potential de compensation. Intervention performed as documented. Discharge Plan Discharge Clinical Impression: Hypoglycemia, UTI (urinary tract infection) Patient Disposition: Home, Self-Care Instructions: Urinary Tract Infection in Women (DC), Hypoglycemia in a Person with Diabetes (ED) Additional Instructions: Your urine test showed evidence of possible infection. Take the prescribed antibiotics as directed, complete the entire course and do not miss any doses Make sure you have a snack before bed. Check your blood sugar before bed and as soon as you wake up, as well as before meals. Your lab workup showed chronic anemia. Follow up with your doctor for further evaluation. If you develop new or worsening symptoms call 911 or come back to the ER for further evaluation. Prescriptions: New cefuroxime axetil 250 mg tablet 250 mg PO BID 7 Days Qty: 14 0RF No Action promethazine 25 mg Tablet 25 mg PO TID atorvastatin 80 mg Tablet 80 mg PO BEDTIME isosorbide mononitrate 30 mg Tablet Extended Release 24 Hr 30 mg PO DAILY metoprolol succinate 100 mg Tablet Extended Release 24 Hr 100 mg PO BID amitriptyline 50 mg Tablet 50 mg PO BEDTIME omeprazole 20 mg Capsule,Delayed Release(Dr/Ec) 20 mg PO BID topiramate 100 mg Tablet 100 mg PO DAILY@1700 losartan 100 mg Tablet 100 mg PO DAILY niacin 1,000 mg Tablet Extended Release 24 Hr 1,000 mg PO BEDTIME melatonin 3 mg Tablet 6 mg PO BEDTIME Qty: 30 0RF hydromorphone [Dilaudid] 2 mg tablet 1 tab PO DAILY PRN (Reason: pain) alprazolam [Xanax] 0.25 mg tablet 1 tab PO TID [id number] [Fioricet] 50-300-40 mg capsule 1 cap PO TID PRN (Reason: migraine) acetaminophen 325 mg Tablet 650 mg PO Q6H PRN (Reason: Pain) gabapentin 400 mg Capsule 400 mg PO TID diphenoxylate-atropine [Lomotil] 2.5-0.025 mg Tablet 1 tab PO BID metformin 500 mg Tablet Extended Release 24 Hr 1,000 mg PO DAILY loratadine 10 mg Tablet 10 mg PO DAILY duloxetine 20 mg Capsule,Delayed Release(Dr/Ec) 20 mg PO BID multivitamin Tablet 1 tab PO DAILY sennosides [senna] 8.6 mg Tablet 17.2 mg PO BEDTIME nitroglycerin [Nitrostat] 0.4 mg Tablet, Sublingual 0.4 mg SUBLINGUAL Q5M PRN (Reason: Chest Pain) Rx Instructions: do not exceed 3 doses per episode ergocalciferol (vitamin D2) 1,250 mcg (50,000 unit) Capsule 1,250 mcg PO QWEEK insulin lispro [Humalog U-100 Insulin] 100 unit/mL Solution 10 unit SUBCUT TID metoclopramide HCl 10 mg Tablet 10 mg PO BID PRN (Reason: Spasms) magnesium oxide 400 mg magnesium tablet 400 mg PO DAILY Qty: 14 0RF Lantus Solostar U-100 Insulin 100 unit/mL (3 mL) Insulin Pen 30 unit SUBCUT DAILY ondansetron HCl 4 mg tablet 4 mg PO Q6H PRN (Reason: nausea and vomiting) Qty: 14 0RF diclofenac sodium [Voltaren Arthritis Pain] 1 % gel 2 g topical QID Qty: 100 0RF Rx Instructions: apply to single elbow, wrist or hand; for hand includes palm/fingers/back of hand prednisone 20 mg tablet 40 mg PO DAILY Qty: 10 0RF acetaminophen [Tylenol] 325 mg tablet 650 mg PO Q4H PRN (Reason: pain) Qty: 30 0RF
[2022-09-16 10:56] VITALS: BP 128/52; PULSE 68; RESP 20; O2SAT 97
[2022-09-16 10:58] LABS: MANUAL DIFF FLAG NO
[2022-09-16 11:02] LABS: Basophils Percent Auto 0.3 % (0-2); Eosinophils Absolute Auto 0.1 X10*3/uL (0.0-0.4); Eosinophils Percent Auto 1.2 % (0-4); Hematocrit 25.4 % (37.0-47.0); Hemoglobin 8.9 g/dl (12.0-16.0); Imm Gran Abs Auto 0.01 X10*3/uL (0.00-0.03); Imm Gran Pct Auto 0.1 % (0.0-0.4); Lymphocytes Absolute Auto 1.4 X10*3/uL (1.2-4.9); Lymphocytes Percent Auto 18.4 % (20-40); Mean Corpuscular Hemoglobin 31.9 pg (27.0-33.0); Mean Platelet Volume 9.6 fL (9.4-12.3); Monocytes Absolute Auto 0.8 X10*3/uL (0.1-1.2); Monocytes Percent Auto 10.9 % (2-11); Neutrophils Absolute Auto 5.2 x10*3/uL (2.0-8.3); Neutrophils Percent Auto 69.1 % (45-73); Platelet Count 182 X10*3/uL (160-400); Red Blood Count 2.79 X10*6/uL (4.20-5.50); Red Cell Distribution Width 12.2 % (11.0-16.0); White Blood Count 7.6 X10*3/uL (4.8-10.8)
[2022-09-16] MEDS: Dextrose 50 % 25 GM/50 ML SYRINGE IVPUSH (11:02)
--- NOTE | 2022-09-16 11:06 | PC.NURSE ---
PO JUICE WAS GIVEN ON ARRIVAL WITH SUGAR, SHE IS NOW DRINKING ANOTHER CUP OF JUICE, COLOR IMPROVING
[2022-09-16 11:22] LABS: Glucose, Whole Blood 147 mg/dL (60-115)
[2022-09-16 11:25] LABS: Troponin-I High Sensitivity 5.9 ng/L (<3.5-17.0)
[2022-09-16 11:30] LABS: Alanine Aminotransferase 10 U/L (0-31); Albumin Level 3.8 g/dL (3.5-5.0); Alkaline Phosphatase 68 U/L (39-117); Anion Gap 11 (12-20); Aspartate Amino Transferase 16 U/L (5-31); Bilirubin Direct 0.1 mg/dL (0.0-0.5); Bilirubin Total 0.3 mg/dL (0.0-1.0); Blood Urea Nitrogen 22 mg/dL (9-16); Calcium 9.4 mg/dL (8.4-10.2); Carbon Dioxide 23 mmol/L (22-29); Chloride 103 mmol/L (96-108); Creatinine Clr Calc Pharmacy 78.5; Estimated Glomerular Filt Rate > 60; Ethanol < 10 mg/dL; Glucose Random 99 mg/dL (60-115); Magnesium 1.9 mg/dL (1.6-2.6); Potassium 4.1 mmol/L (3.3-5.1); Sodium 133 mmol/L (135-145); Total Protein 6.6 g/dL (6.5-8.0)
[2022-09-16 11:39] LABS: TSH reflex Free T4 0.52 uIU/mL (0.32-4.0)
[2022-09-16 12:15] VITALS: BP 138/58; PULSE 75; RESP 20; O2SAT 97
[2022-09-16 12:30] LABS: Appearance Urine Clear; Color Urine Yellow; Glucose Urine UA 250 mg/dL (Negative); Leukocyte Esterase Urine Moderate (2+) (Negative); Nitrite Urine Negative (Negative); Specific Gravity - Urine <= 1.005 (1.005-1.025); UMIC TRIGGER UACC YES; Urine Blood Negative (Negative); Urine Ketones Negative (Negative); Urine Protein Negative (Neg-Trace)
[2022-09-16 12:32] LABS: Glucose, Whole Blood 214 mg/dL (60-115)
[2022-09-16 12:40] LABS: Bacteria Urine None Seen (None Seen); Hyaline Casts Urine 0-2 /LPF (0-2); RBC Urine 0-2 /HPF (0-2); Squamous Epithelial Cell Urine 0-2 /HPF (0-2); WBC Urine 0-5 /HPF (0-5)
[2022-09-16 12:49] LABS: Amphetamine Screen Urine Not Detected (Not Detect); Barbiturates, Urine Not Detected (Not Detect); Benzodiazepines Screen Urine Not Detected (Not Detect); Cannabinoid Screen Urine Not Detected (Not Detect); Cocaine Screen Urine Not Detected (Not Detect); Fentanyl, urine Not Detected (Not Detect); Opiate Screen Urine Not Detected (Not Detect); Phencyclidine Screen Urine Not Detected (Not Detect)
[2022-09-16] MEDS: Acetaminophen 325 MG TABLET 975 MG PO (12:53)
--- NOTE | 2022-09-16 12:55 | PC.NURSE ---
pt resting in bed, resp equal and unlabored. patient asking when she can go home
[2022-09-16 14:36] VITALS: BP 123/38; PULSE 70; RESP 21; O2SAT 99
[2022-09-16 14:41] LABS: Glucose, Whole Blood 151 mg/dL (60-115)
[2022-09-16 16:07] VITALS: BP 124/48; PULSE 66; RESP 14; O2SAT 97
[2022-09-16 16:44] LABS: Glucose, Whole Blood 130 mg/dL (60-115)
--- NOTE | 2022-09-16 18:30 | PC.NURSE ---
daughter here with patients wc for transport home
== END 2022-09-16 18:30 | disposition home or self-care (01) ==
PROVIDERS: Physician Assistant; Emergency Provider Emergency Medicine Emergency Medical Services
DX: N39.0 Urinary tract infection, site not specified (principal); E11.9 Type 2 diabetes mellitus without complications; R53.1 Weakness; I10 Essential (primary) hypertension; Z86.73 Personal history of transient ischemic attack (TIA), and cerebral infarction without residual deficits; Z96.89 Presence of other specified functional implants; Z79.4 Long term (current) use of insulin; Z79.02 Long term (current) use of antithrombotics/antiplatelets; Z79.899 Other long term (current) drug therapy
CPT/HCPCS: 36415; 71045; 80048; 80076; 80307; 81001; 82947; 83735; 84443; 84484; 85025; 93005; 99285; J1610

== ENCOUNTER 2023-04-26 14:44 | Inpatient (IN) | payer MEDICAID, SELFPAY ==
--- NOTE | ~2023-04-26 | CT_ITS ---
EXAMINATION: CT ABDOMEN AND PELVIS WITHOUT CONTRAST CLINICAL INFORMATION: Left-sided pain. Constipation. COMPARISON: Previous CT of the abdomen and pelvis June 19 TECHNIQUE: Multidetector volumetric imaging was performed from the superior aspect of the liver through the pubic symphysis. Sagittal and coronal reformatted images were obtained on the technologist's workstation. This CT examination was performed using dose optimization techniques as appropriate, variously including the following: *Automated exposure control *Adjustment of mA and/or kV according to patient size (this includes techniques or standardized protocols for targeted exams where dose is matched to indication/reason for exam; i.e. extremities or head) *Use of iterative reconstruction technique DLP: 5-0 mGy-cm FINDINGS: LUNG BASES: New clustered peribronchial nodules in both lower lobes probably representing tree-in-bud appearance or airways disease largest pulmonary nodule measures millimeters. There are other new isolated pulmonary nodules in the lingula and right middle lobe. LIVER, GALLBLADDER, AND BILIARY TREE: The liver is normal in size, shape, and attenuation. No focal hepatic lesion or biliary ductal dilatation is present. The gallbladder is unremarkable with no evidence of radiopaque gallstones, gallbladder wall thickening, or obvious pericholecystic inflammatory changes. PANCREAS: Unremarkable. SPLEEN: Unremarkable. ADRENAL GLANDS: Unremarkable. KIDNEYS AND URETERS: The kidneys are normal in size, shape, and attenuation. No hydronephrosis, hydroureter, or calculi seen. No perinephric stranding. BLADDER: Unremarkable. GASTROINTESTINAL TRACT: There is mild wall thickening of sigmoid colon and rectum suggestive of colitis. The more proximal colon appears slightly dilated and filled with stools just above mild secondary obstruction. Small bowel is normal. The appendix is normal. ABDOMINAL WALL: Area in the left anterior chest wall with lead stomach. LYMPH NODES: Normal. VASCULAR: Severe atherosclerotic disease. No aneurysm PELVIC VISCERA: Unremarkable. OSSEOUS STRUCTURES: Osteopenia. Stable 1 cm left L4 lucent lesion. Scoliosis and degenerative changes of the spine. Mild degenerative changes at the hip joints. CT/CT abdomen pelvis wo IV con IMPRESSION: Wall thickening of the sigmoid colon and rectum suggestive of proctocolitis. The more proximal colon appears slightly dilated and filled with stool suggestive of mild secondary obstruction. New clustered peribronchial nodules in the lower lobes probably representing tree-in-bud appearance or airways disease. New isolated pulmonary nodules in the lingula and right middle lobe. Infectious, inflammatory and neoplastic processes should be considered. According to the UPDATED 2017 Fleischner Society recommendations, the advised follow-up imaging for less than 6 mm solid nodule: Low risk, no CT follow-up and high risk, optional CT follow-up in one year recommended Fleischner guidelines were followed.
[2023-04-26 14:56] VITALS: BP 156/75; O2SAT 99
[2023-04-26 15:09] VITALS: BP 157/58; PULSE 69; RESP 18; TEMP 36.2; O2SAT 97; BMI 28.1
--- NOTE | 2023-04-26 15:10 | ED_ITS ---
HPI - General Adult General Chief complaint: Abdominal Pain Stated complaint: ABD PAIN,DIARRHEA X3 DAYS PER EMS Time Seen by Provider: 04/26/23 22:42 History of Present Illness HPI narrative: The patient is a 63-year-old female with a number of medical problems including type 2 diabetes. She has a gastric pacemaker. She has a [id number] amputation. She lives in [place]. The patient says she has not felt well for the last 4-5 days. She has had some lower abdominal discomfort. She feels that her abdomen is distended. She has had a mucousy discharge from her rectum and has been wearing a diaper because of this discharge. She has not been passing stools. She has had nausea and decreased appetite but has not been vomiting. No fever, sweats, chills. Related Data Home Medications Medication Instructions Recorded Confirmed promethazine 25 mg tablet 25 mg PO TID 04/10/20 07/21/21 amitriptyline 50 mg tablet 50 mg PO BEDTIME 05/12/20 07/21/21 atorvastatin 80 mg tablet 80 mg PO BEDTIME 05/12/20 07/21/21 isosorbide mononitrate 30 mg 30 mg PO DAILY 05/12/20 07/21/21 tablet,extended release 24 hr losartan 100 mg tablet 100 mg PO DAILY 05/12/20 07/21/21 metoprolol succinate 100 mg 100 mg PO BID 05/12/20 07/21/21 tablet,extended release 24 hr niacin 1,000 mg tablet,extended 1,000 mg PO BEDTIME 05/12/20 07/21/21 release 24 hr omeprazole 20 mg capsule,delayed 20 mg PO BID 05/12/20 07/21/21 release topiramate 100 mg tablet 100 mg PO DAILY@1700 05/12/20 07/21/21 acetaminophen 325 mg tablet 650 mg PO Q6H PRN Pain 06/29/21 07/21/21 alprazolam 0.25 mg tablet (Xanax) 1 tab PO TID 06/29/21 07/21/21 zvbaitglhh-[id number]-ddaaywey 1 cap PO TID PRN migraine 06/29/21 07/21/21 50 mg-300 mg-40 mg capsule (Fioricet) diphenoxylate-atropine 2.5 1 tab PO BID 06/29/21 07/21/21 mg-0.025 mg tablet (Lomotil) duloxetine 20 mg capsule,delayed 20 mg PO BID 06/29/21 07/21/21 release gabapentin 400 mg capsule 400 mg PO TID 06/29/21 07/21/21 hydromorphone 2 mg tablet 1 tab PO DAILY PRN pain 06/29/21 07/21/21 (Dilaudid) loratadine 10 mg tablet 10 mg PO DAILY 06/29/21 07/21/21 metformin 500 mg tablet,extended 1,000 mg PO DAILY 06/29/21 07/21/21 release 24 hr ergocalciferol (vitamin D2) 1,250 1,250 mcg PO QWEEK 07/15/21 07/21/21 mcg (50,000 unit) capsule insulin lispro 100 unit/mL 10 unit subcut TID 07/15/21 07/22/21 subcutaneous solution (Humalog U-100 Insulin) metoclopramide HCl 10 mg tablet 10 mg PO BID PRN Spasms 07/15/21 07/21/21 multivitamin 1 tab PO DAILY 07/15/21 07/21/21 nitroglycerin 0.4 mg sublingual 0.4 mg sublingual Q5M PRN Chest 07/15/21 07/21/21 tablet (Nitrostat) Pain sennosides 8.6 mg tablet (senna) 17.2 mg PO BEDTIME 07/15/21 07/21/21 insulin glargine 100 unit/mL (3 30 unit subcut DAILY 07/22/21 07/22/21 mL) subcutaneous pen (Lantus Solostar U-100 Insulin) amitriptyline 50 mg tablet 50 mg PO BEDTIME 04/27/23 04/27/23 aspirin 81 mg tablet,delayed 81 mg PO DAILY 04/27/23 04/27/23 release atorvastatin 80 mg tablet 80 mg PO DAILY 04/27/23 04/27/23 losartan 100 mg tablet 100 mg PO DAILY 04/27/23 04/27/23 metoprolol succinate 100 mg 100 mg PO BID 04/27/23 04/27/23 tablet,extended release 24 hr Previous Rx's Medication Instructions Recorded melatonin 3 mg tablet 6 mg (2 x 3 mg) PO BEDTIME #30 tabs 02/09/21 magnesium oxide 400 mg PO DAILY #14 tabs 07/19/21 ondansetron HCl 4 mg tablet 4 mg PO Q6H PRN nausea and 07/27/21 vomiting #14 tabs acetaminophen 325 mg tablet 650 mg (2 x 325 mg) PO Q4H PRN 08/22/22 (Tylenol) pain #30 tabs diclofenac sodium 1 % topical gel 2 g topical QID #100 grams 08/22/22 (Voltaren Arthritis Pain) prednisone 20 mg tablet 40 mg (2 x 20 mg) PO DAILY #10 tabs 08/22/22 cefuroxime axetil 250 mg tablet 250 mg PO BID 7 days #14 tabs 09/16/22 Allergies Allergy/AdvReac Type Severity Reaction Status Date / Time Penicillins [PENICILLINS] Allergy Mild HIVES Verified 05/25/20 04:33 clarithromycin [From Biaxin] Allergy Unknown HIVES Verified 05/25/20 04:33 penicillin V Allergy Unknown rash, Verified 05/25/20 04:33 throat tight bioxin Allergy Unknown Unknown Uncoded 05/25/20 04:33 penicillin Allergy Unknown Unknown Uncoded 05/25/20 04:33 Review of Systems 2 Review of Systems: Yes all other systems are reviewed and are negative [facility] Past Medical History Medical History Anxiety Below knee amputation CAD (coronary artery disease) Cholelithiasis Chronic pain syndrome CVA (cerebral vascular accident) Delirium due to another medical condition Depression Diabetic foot ulcer Diabetic neuropathy associated with diabetes mellitus due to underlying condition Encephalopathy acute Gastroparesis History of gastrostomy tube placement History of peptic ulcer disease HTN (hypertension) Hyperglycemia Hypotonic neurogenic bladder IDDM (insulin dependent diabetes mellitus) Liver lesion Myocardial infarction Wheelchair bound Surgical History History of back surgery Hx of BKA Family History Family History Father Coronary arteriosclerosis Social History Social History Household Members: None Housing: Apartment Are you a primary career placement specialist to a significant other at home: No Do you presently have visiting nurse or other home services: Yes Unable to assess alcohol history related to: Unable to respond Alcohol intake: former Comment: 1:1 sitter Patient Tobacco Use Status: Never used Tobacco Second Hand Smoke Exposure: No Advance Directives: Yes Advance Directives on File: Yes Advance Directives Date on File: 05/12/20 service: No Current occupational status: unemployed and disabled Physical Exam ED Vital Signs: Vital Signs - 24 hr 04/26/23 15:09 04/26/23 20:12 04/26/23 23:39 Temperature 97.1 F 97.7 F 97.9 F Pulse Rate 69 69 68 Respiratory Rate 18 16 16 Blood Pressure 157/58 H 163/69 H 150/56 H Pulse Oximetry 97 98 96 Oxygen Delivery Method Room Air Room Air BMI result Body Mass Index 28.1 Const Other: The patient is a frail, chronically ill-appearing 63-year-old. She is awake and alert and does not appear in acute distress. HENMT Other: Face is symmetrical. Mucous membranes not obviously dry. Eyes Other: Pupils are round equal, conjunctivae are clear, extraocular movements intact Neck Other: Moving her neck easily Resp Effort & Inspection: normal respiratory effort Auscultation: clear to auscultation bilaterally Cardio Rate: regular rate Rhythm: regular rhythm Heart sounds: S1 normal heart sound present and S2 normal heart sound present GI Other: The abdomen is soft and does not seem particularly tender obviously distended. Skin Other: Skin is pale and dry Neuro Other: The patient is awake and alert with a normal mental status. She seems grossly neurologically intact. Extrem Other: There is a right [id number] amputation. The left leg shows no pitting edema. Course Course Course Narrative: RME:?63 yo female hx of CAD, diabetes, metabolic encephlopathy, gastric pacemaker, here with diffuse abd pain, abdominal bloating, nausea, mucousy BMs (last BM 3-4 days ago) x a few days. having to wear diapers. admits to hemorroids with BRBPR on wiping. denies fever, chills, vomiting, diarrhea. + abd distended. ttp of LUQ/LLQ labs, UA, CT ordered Full HPI, ROS and PE to be performed by the primary ED provider. Medical Decision Making Medical Decision Making MDM Narrative: The patient is a 63-year-old woman with multiple chronic medical problems and a history of multiple hospitalizations. She presents with 4-5 days GI symptoms associated with rectal discharge. Her CT scan shows proctocolitis and the radiologist describes her might be a mild secondary colonic obstruction with a lot of stool proximal to the area of inflammation. The patient denies being febrile. She has not febrile here. She has a normal white count and differential. Minimally elevated C-reactive protein. I think it is unlikely that her symptoms today represent an acute bacterial process. I am not sure why she has this proctocolitis but it is causing significant symptoms and possibly some degree of a secondary mild colonic obstruction. Given the diagnostic uncertainty and her symptomatology I think hospitalization for hydration and evaluation by dumper bailer operator is reasonable. Lab Data 04/26/23 16:52 04/26/23 16:52 Labs: Lab Results 04/26/23 04/26/23 04/26/23 Range/Units 16:52 16:56 18:24 WBC 8.2 (4.8-10.8) X10*3/uL RBC 2.94 L (4.20-5.50) X10*6/uL Hgb 9.3 L (12.0-16.0) g/dl Hct 28.0 L (37.0-47.0) % MCV 95.2 (80.0-98.0) fL MCH 31.6 (27.0-33.0) pg MCHC 33.2 (31.0-35.0) g/dl RDW 12.1 (11.0-16.0) % Plt Count 211 (160-400) X10*3/uL MPV 10.0 (9.4-12.3) fL Immature Gran % (Auto) 0.2 (0.0-0.4) % Neut % (Auto) 62.0 (45-73) % Lymph % (Auto) 27.5 (20-40) % [place] % (Auto) 7.7 (2-11) % Eos % (Auto) 2.2 (0-4) % Baso % (Auto) 0.4 (0-2) % Lymph # (Auto) 2.3 (1.2-4.9) X10*3/uL [place] # (Auto) 0.6 (0.1-1.2) X10*3/uL Eos # (Auto) 0.2 (0.0-0.4) X10*3/uL Baso # (Auto) 0.0 (0.0-0.2) X10*3/uL Abs Immat Gran (auto) 0.02 (0.00-0.03) X10*3/uL Absolute Neuts (auto) 5.1 (2.0-8.3) x10*3/uL Absolute Nucleated RBC 0.000 (0.0-0.012) X10*3/uL Nucleated RBC % (auto) 0.0 (0.0-0.2) /100WBC ESR 44 H (0-20) MM/HR Sodium 140 (135-145) mmol/L Potassium 4.2 (3.3-5.1) mmol/L Chloride 109 H (96-108) mmol/L Carbon Dioxide 23 (22-29) mmol/L Anion Gap 12 (12-20) BUN 18 H (9-16) mg/dL Creatinine 0.83 (0.5-1.4) mg/dL Estim Creat Clear Calc 68.5 Estimated GFR > 60 POC Glucose 128 H (60-115) mg/dL Random Glucose 174 H (60-115) mg/dL Calcium 9.8 (8.4-10.2) mg/dL Magnesium 1.9 (1.6-2.6) mg/dL Total Bilirubin 0.2 (0.0-1.0) mg/dL AST 15 (5-31) U/L ALT 10 (0-31) U/L Alkaline Phosphatase 68 (39-117) U/L C-Reactive Protein 2.71 H (< or = 0.50) mg/dL Total Protein 7.4 (6.5-8.0) g/dL Albumin 3.9 (3.5-5.0) g/dL Lipase 11 (8-78) U/L Urine Color Urine Appearance Urine pH (5.0-9.0) Ur Specific [place] (1.005-1.025) Urine Protein (Neg-Trace) mg/dL Urine Glucose (UA) (Negative) mg/dL Urine Ketones (Negative) mg/dL Urine Blood (Negative) Urine Nitrite (Negative) Ur Leukocyte Esterase (Negative) Urine RBC (0-2) /HPF Urine WBC (0-5) /HPF Ur Squamous Epith Cells (0-2) /HPF Urine Bacteria (None Seen) Hyaline Casts (0-2) /LPF COVID-19 (TA) Negative (Negative) COVID-19 Clin Com See Note Influenza Type A (TIMOTHY) Negative (Negative) Influenza Type B (TIMOTHY) Negative (Negative) Influenza A & B Note See Note 04/26/23 Range/Units 20:06 WBC (4.8-10.8) X10*3/uL RBC (4.20-5.50) X10*6/uL Hgb (12.0-16.0) g/dl Hct (37.0-47.0) % MCV (80.0-98.0) fL MCH (27.0-33.0) pg MCHC (31.0-35.0) g/dl RDW (11.0-16.0) % Plt Count (160-400) X10*3/uL MPV (9.4-12.3) fL Immature Gran % (Auto) (0.0-0.4) % Neut % (Auto) (45-73) % Lymph % (Auto) (20-40) % [place] % (Auto) (2-11) % Eos % (Auto) (0-4) % Baso % (Auto) (0-2) % Lymph # (Auto) (1.2-4.9) X10*3/uL [place] # (Auto) (0.1-1.2) X10*3/uL Eos # (Auto) (0.0-0.4) X10*3/uL Baso # (Auto) (0.0-0.2) X10*3/uL Abs Immat Gran (auto) (0.00-0.03) X10*3/uL Absolute Neuts (auto) (2.0-8.3) x10*3/uL Absolute Nucleated RBC (0.0-0.012) X10*3/uL Nucleated RBC % (auto) (0.0-0.2) /100WBC ESR (0-20) MM/HR Sodium (135-145) mmol/L Potassium (3.3-5.1) mmol/L Chloride (96-108) mmol/L Carbon Dioxide (22-29) mmol/L Anion Gap (12-20) BUN (9-16) mg/dL Creatinine (0.5-1.4) mg/dL Estim Creat Clear Calc Estimated GFR POC Glucose (60-115) mg/dL Random Glucose (60-115) mg/dL Calcium (8.4-10.2) mg/dL Magnesium (1.6-2.6) mg/dL Total Bilirubin (0.0-1.0) mg/dL AST (5-31) U/L ALT (0-31) U/L Alkaline Phosphatase (39-117) U/L C-Reactive Protein (< or = 0.50) mg/dL Total Protein (6.5-8.0) g/dL Albumin (3.5-5.0) g/dL Lipase (8-78) U/L Urine Color Yellow Urine Appearance Clear Urine pH 7.0 (5.0-9.0) Ur Specific [place] 1.010 (1.005-1.025) Urine Protein Negative (Neg-Trace) mg/dL Urine Glucose (UA) Negative (Negative) mg/dL Urine Ketones Negative (Negative) mg/dL Urine Blood Negative (Negative) Urine Nitrite Negative (Negative) Ur Leukocyte Esterase Trace H (Negative) Urine RBC 0-2 (0-2) /HPF Urine WBC 6-10 H (0-5) /HPF Ur Squamous Epith Cells 0-2 (0-2) /HPF Urine Bacteria None Seen (None Seen) Hyaline Casts 0-2 (0-2) /LPF COVID-19 (TA) (Negative) COVID-19 Clin Com Influenza Type A (TIMOTHY) (Negative) Influenza Type B (TIMOTHY) (Negative) Influenza A & B Note Discharge Plan Discharge Clinical Impression: Proctocolitis Patient Disposition: Admitted As Inpatient
[2023-04-26 16:57] LABS: MANUAL DIFF FLAG NO
[2023-04-26 17:01] LABS: Basophils Percent Auto 0.4 % (0-2); Eosinophils Absolute Auto 0.2 X10*3/uL (0.0-0.4); Eosinophils Percent Auto 2.2 % (0-4); Hemoglobin 9.3 g/dl (12.0-16.0); Imm Gran Abs Auto 0.02 X10*3/uL (0.00-0.03); Imm Gran Pct Auto 0.2 % (0.0-0.4); Lymphocytes Absolute Auto 2.3 X10*3/uL (1.2-4.9); Lymphocytes Percent Auto 27.5 % (20-40); Mean Corpuscular HGB Conc 33.2 g/dl (31.0-35.0); Mean Corpuscular Hemoglobin 31.6 pg (27.0-33.0); Mean Corpuscular Volume 95.2 fL (80.0-98.0); Monocytes Absolute Auto 0.6 X10*3/uL (0.1-1.2); Monocytes Percent Auto 7.7 % (2-11); Neutrophils Absolute Auto 5.1 x10*3/uL (2.0-8.3); Platelet Count 211 X10*3/uL (160-400); Red Blood Count 2.94 X10*6/uL (4.20-5.50); Red Cell Distribution Width 12.1 % (11.0-16.0); White Blood Count 8.2 X10*3/uL (4.8-10.8)
[2023-04-26 17:13] LABS: Alanine Aminotransferase 10 U/L (0-31); Albumin Level 3.9 g/dL (3.5-5.0); Alkaline Phosphatase 68 U/L (39-117); Anion Gap 12 (12-20); Aspartate Amino Transferase 15 U/L (5-31); Bilirubin Total 0.2 mg/dL (0.0-1.0); Blood Urea Nitrogen 18 mg/dL (9-16); Calcium 9.8 mg/dL (8.4-10.2); Carbon Dioxide 23 mmol/L (22-29); Chloride 109 mmol/L (96-108); Creatinine Clr Calc Pharmacy 68.5; Estimated Glomerular Filt Rate > 60; Glucose Random 174 mg/dL (60-115); Lipase 11 U/L (8-78); Magnesium 1.9 mg/dL (1.6-2.6); Potassium 4.2 mmol/L (3.3-5.1); Sodium 140 mmol/L (135-145); Total Protein 7.4 g/dL (6.5-8.0)
[2023-04-26 17:27] LABS: COVID-19 Test Negative (Negative); IDNOW Serial# 152EDE1D; IDNOW Serial# 9DB6401D; Influenza A Negative (Negative); Influenza B2 Negative (Negative)
[2023-04-26 20:12] VITALS: BP 163/69; PULSE 69; RESP 16; TEMP 36.5; O2SAT 98
[2023-04-26 20:13] LABS: Appearance Urine Clear; Color Urine Yellow; Glucose Urine UA Negative (Negative); Leukocyte Esterase Urine Trace (Negative); Nitrite Urine Negative (Negative); UMIC TRIGGER UACC YES; Urine Blood Negative (Negative); Urine Ketones Negative (Negative); Urine Protein Negative (Neg-Trace)
--- NOTE | 2023-04-26 20:13 | MHC.EDTECH ---
PATIENT WAS ASSISTED TO BATHROOM ,URINE SAMPLE COLLECTED ,VITALS TAKEN ,AND PATIENT BACK IN WAITING ROOM .
[2023-04-26 20:16] LABS: Bacteria Urine None Seen (None Seen); Hyaline Casts Urine 0-2 /LPF (0-2); RBC Urine 0-2 /HPF (0-2); Squamous Epithelial Cell Urine 0-2 /HPF (0-2); UACC Culture Trigger YES
[2023-04-26 22:30] LABS: Glucose, Whole Blood 128 mg/dL (60-115)
[2023-04-26 23:02] LABS: C Reactive Protein 2.71 mg/dL (< or = 0.50)
[2023-04-26 23:32] LABS: Erythrocyte Sedimentation Rate 44 MM/HR (0-20)
[2023-04-26 23:39] VITALS: BP 150/56; PULSE 68; RESP 16; TEMP 36.6; O2SAT 96
[2023-04-27 00:43] LABS: Glucose, Whole Blood 114 mg/dL (60-115)
[2023-04-27] MEDS: Acetaminophen 325 MG TABLET 975 MG PO ×2 (02:18→16:48)
[2023-04-27] MEDS: 0.9 % Sodium Chloride 1,000 ML 999 ML IV (02:19)
[2023-04-27] MEDS: Amitriptyline HCl 50 MG TABLET PO (03:39)
[2023-04-27] MEDS: HYDROmorphone HCl 1 MG/ML SYRINGE 0.5 MG IVPUSH ×3 (03:39→23:42)
[2023-04-27] MEDS: 0.9 % Sodium Chloride 1,000 ML 100 ML IVCONT ×3 (03:40→21:56)
[2023-04-27] MEDS: levoFLOXacin/D5W 500 MG/100 ML PIGGYBACK 100 MG IV ×2 (03:40→21:52)
[2023-04-27 03:46] VITALS: BP 125/44; PULSE 67; RESP 16; TEMP 36.6; O2SAT 95
[2023-04-27] MEDS: metroNIDAZOLE/NS 500 MG/100 ML PIGGYBACK 100 MG IV ×3 (05:00→16:50)
--- NOTE | 2023-04-27 05:02 | P.HPHOSP_ITS ---
History of Present Illness Date of Service: 04/27/23 Attending physician on admission: Lanette Nugent Chief Complaint: Abdominal pain Constanza Mcqueen is a 63 years old woman with past medical history significant for gastroparesis s/p gastric pacemaker, type 2 diabetes mellitus, cholelithiasis, essential hypertension, anxiety, chronic left heel ulcer f/u by vascular surgery and right left BKA presents to the emergency department complaining of 5 day history of generalized abdominal pain associated with poor appetite. She also reported nausea but denied events of vomiting She also has been having episode of nonbloody diarrhea, however this stopped 3 days ago. Now she is having mucus discharge and leaking from her rectum. She denies fever or chills. She denied any headache, palpitations or dizziness. She denied any chest pain, shortness on breath or cough. She denied tobacco smoking, alcohol abuse or illicit drug use. She denied recent use of antibiotics, contact with sick people or recent travel. In the ED, she was found to have normal vital signs except for slight hypertension. Her last blood pressure is 125/44. Blood workup including CBC and CMP are basically unremarkable. Lipase is normal. There is chronic stable anemia. Urinalysis showed elevated WBC and leukocyte yesterday. CRP is elevated, 2.71. Viral testing for COVID-19 and influenza is negative. Abdomen pelvis CT scan findings suggestive of proctocolitis with slightly dilatation of the proximal colon suggestive of mild secondary obstruction. ED tx: NS 1 L bolus, Tylenol 975 mg p.o., Phenergan 12.5 mg IV. [facility] Medical History Anxiety Below knee amputation CAD (coronary artery disease) Cholelithiasis Chronic pain syndrome CVA (cerebral vascular accident) Delirium due to another medical condition Depression Diabetic foot ulcer Diabetic neuropathy associated with diabetes mellitus due to underlying condition Encephalopathy acute Gastroparesis History of gastrostomy tube placement History of peptic ulcer disease HTN (hypertension) Hyperglycemia Hypotonic neurogenic bladder IDDM (insulin dependent diabetes mellitus) Liver lesion Myocardial infarction Wheelchair bound Family History Father Coronary arteriosclerosis Surgical History History of back surgery Hx of BKA Social History Household Members: None Housing: Apartment Are you a primary manager urgent care to a significant other at home: No Do you presently have visiting nurse or other home services: Yes Unable to assess alcohol history related to: Unable to respond Alcohol intake: former Comment: 1:1 sitter Patient Tobacco Use Status: Never used Tobacco Second Hand Smoke Exposure: No Advance Directives: Yes Advance Directives on File: Yes Advance Directives Date on File: 05/12/20 service: No Current occupational status: unemployed and disabled Meds Allergies Allergy/AdvReac Type Severity Reaction Status Date / Time Penicillins [PENICILLINS] Allergy Mild HIVES Verified 05/25/20 04:33 clarithromycin [From Biaxin] Allergy Unknown HIVES Verified 05/25/20 04:33 penicillin V Allergy Unknown rash, Verified 05/25/20 04:33 throat tight bioxin Allergy Unknown Unknown Uncoded 05/25/20 04:33 penicillin Allergy Unknown Unknown Uncoded 05/25/20 04:33 Active Medications: Current Medications Acetaminophen (Acetaminophen 325 Mg Tablet) 975 mg PO Q6H PRN PRN Reason: Pain, Mild (Pain Scale 1-3) Amitriptyline HCl (Amitriptyline Hcl 50 Mg Tablet) 50 mg PO BEDTIME [facility] Last Admin: 04/27/23 03:39 Dose: 50 mg Aspirin (Aspirin Enteric Coated 81 Mg Tablet.Dr) 81 mg PO DAILY [facility] Atorvastatin Calcium (Atorvastatin Calcium 80 Mg Tablet) 80 mg PO DAILY [facility] Heparin Sodium (Porcine) (Heparin Sodium,Porcine 5,000 Unit/Ml Vial) 5,000 unit SUBCUT Q8H [facility] Hydromorphone HCl (Hydromorphone Hcl 1 Mg/Ml Syringe) 0.5 mg IVPUSH Q4H PRN; Protocol PRN Reason: Pain, Severe (Pain Scale 7-10) Last Admin: 04/27/23 03:39 Dose: 0.5 mg Sodium Chloride (Ns) 1,000 mls @ 100 mls/hr IVCONT .Q10H [facility] Last Admin: 04/27/23 03:40 Dose: 100 mls/hr Metronidazole (Flagyl) 500 mg in 100 mls @ 100 mls/hr IV Q8H [facility] Last Admin: 04/27/23 05:00 Dose: 100 mls/hr Levofloxacin (Levaquin) 500 mg in 100 mls @ 100 mls/hr IV DAILY@2200 [facility] Last Infusion: 04/27/23 05:00 Dose: Infused Losartan Potassium (Losartan Potassium 50 Mg Tablet) 100 mg PO DAILY [facility]; Protocol Metoprolol Succinate (Metoprolol Succinate Er 100 Mg Tab.Er.24h) 100 mg PO BID [facility]; Protocol Ondansetron HCl (Ondansetron Hcl 4 Mg/2 Ml Vial) 4 mg IVPUSH Q6H PRN PRN Reason: Nausea and Vomiting Pantoprazole Sodium (Pantoprazole Sodium 40 Mg/10 Ml Vial) 40 mg IVPUSH DAILY [facility] Sodium Chloride (0.9 % Sodium Chloride Flush 3 Ml Syringe) 3 ml IVFLUSH QSHIFT [facility] Home Medications Medication Instructions Recorded Confirmed Last Taken Type promethazine 25 mg tablet 25 mg PO TID 04/10/20 07/21/21 01/28/21 History amitriptyline 50 mg tablet 50 mg PO BEDTIME 05/12/20 07/21/21 01/28/21 History atorvastatin 80 mg tablet 80 mg PO BEDTIME 05/12/20 07/21/21 01/28/21 History isosorbide mononitrate 30 mg 30 mg PO DAILY 05/12/20 07/21/21 01/29/21 History tablet,extended release 24 hr losartan 100 mg tablet 100 mg PO DAILY 05/12/20 07/21/21 01/29/21 History metoprolol succinate 100 mg 100 mg PO BID 05/12/20 07/21/21 01/29/21 History tablet,extended release 24 hr niacin 1,000 mg tablet,extended 1,000 mg PO BEDTIME 05/12/20 07/21/21 01/28/21 History release 24 hr omeprazole 20 mg capsule,delayed 20 mg PO BID 05/12/20 07/21/21 01/27/21 History release topiramate 100 mg tablet 100 mg PO DAILY@1700 05/12/20 07/21/21 01/29/21 History acetaminophen 325 mg tablet 650 mg PO Q6H PRN Pain 06/29/21 07/21/21 Unknown History alprazolam 0.25 mg tablet (Xanax) 1 tab PO TID 06/29/21 07/21/21 Unknown History yrbjvhueca-dmrirbprljlzt-vruuhkjt 1 cap PO TID PRN migraine 06/29/21 07/21/21 Unknown History 50 mg-300 mg-40 mg capsule (Fioricet) diphenoxylate-atropine 2.5 1 tab PO BID 06/29/21 07/21/21 Unknown History mg-0.025 mg tablet (Lomotil) duloxetine 20 mg capsule,delayed 20 mg PO BID 06/29/21 07/21/21 Unknown History release gabapentin 400 mg capsule 400 mg PO TID 06/29/21 07/21/21 Unknown History hydromorphone 2 mg tablet 1 tab PO DAILY PRN pain 06/29/21 07/21/21 Unknown History (Dilaudid) loratadine 10 mg tablet 10 mg PO DAILY 06/29/21 07/21/21 Unknown History metformin 500 mg tablet,extended 1,000 mg PO DAILY 06/29/21 07/21/21 Unknown History release 24 hr ergocalciferol (vitamin D2) 1,250 1,250 mcg PO QWEEK 07/15/21 07/21/21 Unknown History mcg (50,000 unit) capsule insulin lispro 100 unit/mL 10 unit subcut TID 07/15/21 07/22/21 Unknown History subcutaneous solution (Humalog U-100 Insulin) metoclopramide HCl 10 mg tablet 10 mg PO BID PRN Spasms 07/15/21 07/21/21 Unknown History multivitamin 1 tab PO DAILY 07/15/21 07/21/21 Unknown History nitroglycerin 0.4 mg sublingual 0.4 mg sublingual Q5M PRN Chest 07/15/21 07/21/21 Unknown History tablet (Nitrostat) Pain sennosides 8.6 mg tablet (senna) 17.2 mg PO BEDTIME 07/15/21 07/21/21 Unknown History insulin glargine 100 unit/mL (3 30 unit subcut DAILY 07/22/21 07/22/21 Unknown History mL) subcutaneous pen (Lantus Solostar U-100 Insulin) amitriptyline 50 mg tablet 50 mg PO BEDTIME 04/27/23 04/27/23 Unknown History aspirin 81 mg tablet,delayed 81 mg PO DAILY 04/27/23 04/27/23 Unknown History release atorvastatin 80 mg tablet 80 mg PO DAILY 04/27/23 04/27/23 Unknown History losartan 100 mg tablet 100 mg PO DAILY 04/27/23 04/27/23 Unknown History metoprolol succinate 100 mg 100 mg PO BID 04/27/23 04/27/23 Unknown History tablet,extended release 24 hr Physical Exam 2 Vital Signs and Narrative: Vital Signs: Last Vital Signs Temp 97.9 F 04/27/23 03:46 Pulse 67 04/27/23 03:46 Resp 16 04/27/23 03:46 BP 125/44 L 04/27/23 03:46 Pulse Ox 95 04/27/23 03:46 O2 Del Method Room Air 04/27/23 03:46 BMI result Body Mass Index 28.1 Constitutional - Awake and Alert. Looks uncomfortable due to abdominal pain. Cooperative. Acutely ill. HEENT - atraumatic head. Normocephalic. Pupils equally round. No scleral icterus Heart - regular rate and rhythm. No murmur. Lungs - Normal lung expansion, Normal respiratory effort, No respiratory distress, CTA bilaterally Abdomen - Soft. No distention. Increased bowel sounds. Generalized tenderness to palpation. No guarding. No rebound. Infraumbilical surgical wound noted. Extremities - right BKA. Left heel ulcer: No erythema no tenderness no discharges. Skin - Warm/Dry Neurological - Alert & oriented x3. No focal weakness. Normal speech. Normal behavior. Psychological - depressed affect Results Labs 04/26/23 16:52 04/26/23 16:52 Labs: Laboratory Results - last 24 hr 04/26/23 04/26/23 04/26/23 16:52 16:56 18:24 MCV 95.2 MCH 31.6 MCHC 33.2 RDW 12.1 Plt Count 211 MPV 10.0 Immature Gran % (Auto) 0.2 Neut % (Auto) 62.0 Lymph % (Auto) 27.5 [place] % (Auto) 7.7 Eos % (Auto) 2.2 Baso % (Auto) 0.4 Lymph # (Auto) 2.3 [place] # (Auto) 0.6 Eos # (Auto) 0.2 Baso # (Auto) 0.0 Abs Immat Gran (auto) 0.02 Absolute Neuts (auto) 5.1 Absolute Nucleated RBC 0.000 Nucleated RBC % (auto) 0.0 ESR 44 H Anion Gap 12 Estim Creat Clear Calc 68.5 Estimated GFR > 60 POC Glucose 128 H Random Glucose 174 H Calcium 9.8 Magnesium 1.9 Total Bilirubin 0.2 AST 15 ALT 10 Alkaline Phosphatase 68 C-Reactive Protein 2.71 H Total Protein 7.4 Albumin 3.9 Lipase 11 Urine Color Urine Appearance Urine pH Ur Specific Raymond Urine Protein Urine Glucose (UA) Urine Ketones Urine Blood Urine Nitrite Ur Leukocyte Esterase Urine RBC Urine WBC Ur Squamous Epith Cells Urine Bacteria Hyaline Casts COVID-19 (TA) Negative COVID-19 Clin Com See Note Influenza Type A (TIMOTHY) Negative Influenza Type B (TIMOTHY) Negative Influenza A & B Note See Note 04/26/23 04/27/23 20:06 00:39 MCV MCH MCHC RDW Plt Count MPV Immature Gran % (Auto) Neut % (Auto) Lymph % (Auto) [place] % (Auto) Eos % (Auto) Baso % (Auto) Lymph # (Auto) [place] # (Auto) Eos # (Auto) Baso # (Auto) Abs Immat Gran (auto) Absolute Neuts (auto) Absolute Nucleated RBC Nucleated RBC % (auto) ESR Anion Gap Estim Creat Clear Calc Estimated GFR POC Glucose 114 Random Glucose Calcium Magnesium Total Bilirubin AST ALT Alkaline Phosphatase C-Reactive Protein Total Protein Albumin Lipase Urine Color Yellow Urine Appearance Clear Urine pH 7.0 Ur Specific Raymond 1.010 Urine Protein Negative Urine Glucose (UA) Negative Urine Ketones Negative Urine Blood Negative Urine Nitrite Negative Ur Leukocyte Esterase Trace H Urine RBC 0-2 Urine WBC 6-10 H Ur Squamous Epith Cells 0-2 Urine Bacteria None Seen Hyaline Casts 0-2 COVID-19 (TA) COVID-19 Clin Com Influenza Type A (TIMOTHY) Influenza Type B (TIMOTHY) Influenza A & B Note Imaging Radiologist's Impressions: Impressions Abdomen/Pelvis CT 04/26/23 16:36 IMPRESSION: Wall thickening of the sigmoid colon and rectum suggestive of proctocolitis. The more proximal colon appears slightly dilated and filled with stool suggestive of mild secondary obstruction. New clustered peribronchial nodules in the lower lobes probably representing tree-in-bud appearance or airways disease. New isolated pulmonary nodules in the lingula and right middle lobe. Infectious, inflammatory and neoplastic processes should be considered. According to the UPDATED 2017 Fleischner Society recommendations, the advised follow-up imaging for less than 6 mm solid nodule: Low risk, no CT follow-up and high risk, optional CT follow-up in one year recommended Fleischner guidelines were followed. Assessment and Plan (1) Proctocolitis: Status: Acute (2) Diabetic foot ulcer: Qualifiers: Diabetes mellitus type: type 2 Diabetic foot ulcer location: heel L aterality: left Non-pressure ulcer stage: unspecified non-pressure ulcer stage Qualified Code(s): E11.621 - Type 2 diabetes mellitus with foot ulcer; L97.429 - Non-pressure chronic ulcer of left heel and midfoot with unspecified severity Status: Acute Plan Constanza Mcqueen is a 63 years old woman with past medical history significant for gastroparesis s/p gastric pacemaker admitted with: * Abdominal pain secondary to proctocolitis. Admit to hospitalist service. Keep NPO. Start IV fluids. Pain control with Dilaudid IV as needed. Start empiric IV antibiotic therapy with levofloxacin and Flagyl. Stool cultures. GI consult for further recommendations. * Type 2 diabetes mellitus. Blood glucose checks every 6 hours while NPO. Blood glucose control with insulin sliding scale. * Essential hypertension. Continue metoprolol and losartan. * Hyperlipidemia. Continue statin. * Chronic left ulcer. Wound care consult. F/u vascular surgery as an outpatient. * Anxiety and depression. Continue home medications. DVT prophylaxis: Heparin subcut. Code status: Full. Patient will need hospitalization for at least 2 midnights for proctocolitis treatment and evaluation with IV fluids, pain control, empiric IV antibiotic therapy and evaluation by specialist. Quality Stroke Does the patient have a stroke diagnosis?: No VTE Prior VTE?: No VTE Risk Level:: Medical - moderate - high VTE Device Contraindication: Treatment Not Indicated VTE Drug Contraindication: N/A - Med Ordered
[2023-04-27 06:13] LABS: Alanine Aminotransferase 10 U/L (0-31); Albumin Level 3.6 g/dL (3.5-5.0); Alkaline Phosphatase 61 U/L (39-117); Anion Gap 11 (12-20); Aspartate Amino Transferase 14 U/L (5-31); Bilirubin Total 0.2 mg/dL (0.0-1.0); Blood Urea Nitrogen 15 mg/dL (9-16); Calcium 9.2 mg/dL (8.4-10.2); Carbon Dioxide 22 mmol/L (22-29); Chloride 112 mmol/L (96-108); Creatinine Clr Calc Pharmacy 80.1; Estimated Glomerular Filt Rate > 60; Glucose Random 108 mg/dL (60-115); Potassium 3.6 mmol/L (3.3-5.1); Sodium 141 mmol/L (135-145); Total Protein 6.7 g/dL (6.5-8.0)
[2023-04-27 06:38] VITALS: BP 111/47; PULSE 57; RESP 16; O2SAT 98
[2023-04-27 06:39] LABS: Glucose, Whole Blood 104 mg/dL (60-115)
[2023-04-27] MEDS: 0.9 % Sodium Chloride Flush 3 ML SYRINGE IVFLUSH ×2 (08:51→21:48)
--- NOTE | 2023-04-27 09:38 | PM.EVENT ---
Event Note Date of Service: 04/27/23 Event Note: GI pt seen and examined consult dictated Colonoscopy planned for 04/28 for further evaluation of abdominal discomfort and abnormal ct scan. Time Spent With Patient Time: Total time managing care of this patient today ____ minutes.
[2023-04-27 10:40] VITALS: BP 136/63; PULSE 61; RESP 12; TEMP 36.4; O2SAT 99
[2023-04-27] MEDS: Pantoprazole Sodium 40 MG/10 ML VIAL IVPUSH (10:45)
[2023-04-27] MEDS: Metoprolol Succinate ER 100 MG TAB.ER.24H PO (10:50)
[2023-04-27] MEDS: Atorvastatin Calcium 80 MG TABLET PO (10:50)
[2023-04-27] MEDS: Losartan Potassium 50 MG TABLET 100 MG PO (10:50)
--- NOTE | 2023-04-27 11:30 | HO.SKINPHOTO ---
Location: Category: Stage: Length: Width: Depth: cm Location: Category: Stage: Length: Width: Depth: cm Location: Category: Stage: Length: Width: Depth: cm Location: Category: Stage: Length: Width: Depth: cm Location: Category: Stage: Length: Width: Depth: cm Location: Category: Stage: Length: Width: Depth: cm
[2023-04-27 11:47] LABS: Glucose, Whole Blood 87 mg/dL (60-115)
--- NOTE | 2023-04-27 12:01 | PHA.MEDREC ---
Pharmacy Consult ? Medication Reconciliation Pharmacy has completed the medication reconciliation. Patient poor historian, unsure of anything she takes. Called patient's daughter Codie ([phone]) who brought in medication list that matches recent claim history. Unsure of OTC medications.
--- NOTE | 2023-04-27 12:28 | CONS_ITS ---
DATE OF SERVICE: 04/27/2023 REFERRING PHYSICIAN: Lanette Nugent MD REASON FOR CONSULTATION: Abdominal discomfort and change in bowels with abnormal CT scan. HISTORY OF PRESENT ILLNESS: The patient is a pleasant 63-year-old woman who was admitted to the hospital after presenting to the emergency room yesterday with complaints of lower abdominal discomfort, abdominal distention, and a change in her bowel habits with some initial mucousy diarrhea, but no passage of stool. There has been also associated some nausea and decrease in appetite, but no vomiting. She was evaluated in the emergency department with laboratory studies and imaging, which are reviewed. Her CT scan of the abdomen and pelvis is interpreted as showing wall thickening of the sigmoid colon and rectum suggestive of proctocolitis with upstream dilation. She was given antibiotics and admitted to the hospital. She denies a prior history of colitis, but records reviewed, indicate she was hospitalized for several days in [place] with a similar presentation and diagnosed clinically with stercoral colitis and treated with laxatives. She denies any recent travel suspect food ingestions or ill contacts. She has no history of chronic colitis. She believes the last colonoscopy was more than 5 years ago. PAST MEDICAL HISTORY: 1. Diabetes mellitus type 2. 2. Coronary artery disease with history of myocardial infarction. 3. Gastroparesis with history of gastric pacemaker placement. 4. Hypertension. 5. CVA with right-sided weakness. 6. Anxiety/depression. 7. Peptic ulcer disease. 8. Left heel ulcer and right BKA. 9. Neurogenic bladder. CURRENT MEDICATIONS: Her current medication list is reviewed in the chart. ALLERGIES: MULTIPLE MEDICATION ALLERGIES ARE REVIEWED. FAMILY HISTORY: This is reviewed with the patient and is noncontributory. SOCIAL HISTORY: There is no current tobacco, alcohol, or substance abuse. REVIEW OF SYSTEMS: SKIN: No pruritus. HEENT: Negative. CARDIOPULMONARY: She denies shortness of breath or chest pain. GASTROINTESTINAL: As above. GENITOURINARY: Negative. NEUROPSYCHIATRIC: Negative. PHYSICAL EXAMINATION: GENERAL: She is a pleasant female, lying in bed, complaining of abdominal distention. VITAL SIGNS: Reviewed in electronic medical record and are stable. SKIN: Anicteric. HEENT: Shows no scleral icterus. NECK: Without lymphadenopathy or thyromegaly. LUNGS: Clear. HEART: Shows regular rate and rhythm. S1, S2. No murmur. ABDOMEN: Soft and nontender without focal masses or tenderness. EXTREMITIES: Without edema. LABORATORY DATA: Including imaging and blood work are reviewed. IMPRESSION: Based on her presentation with continued abdominal symptoms and abnormal findings on her CT scan, this seems consistent with possible colitis. The differential diagnosis for this includes infection, stercoral colitis as previously identified, and primary presentation of inflammatory bowel disease, which seems less likely based on her lack of history. Because of her persistent symptoms and her abnormal findings on CT scanning, I have recommended further evaluation with a colonoscopy. This will be arranged for the patient after a bowel prep. We discussed risks and benefits of the procedure today. She understands and agrees to proceed. In the interim stool specimens will be obtained. It is not clear whether she needs antibiotics pending these results. Thanks for asking me to see her. I will follow her in the hospital with you. MD BRENDA Casper/SONNY / [phone] MTDD
--- NOTE | 2023-04-27 14:42 | PM.EVENT ---
Event Note Date of Service: 04/27/23 Event Note: Chart reviewed patient examined. No acute findings; agree with H&P as outlined. Patient unclear today NPO after midnight for colonoscopy in a.m. Time Spent With Patient Time: Total time managing care of this patient today ____ minutes.
[2023-04-27 14:44] VITALS: BMI 28.1
[2023-04-27] MEDS: PEG 3350/Na Sulf,Bicarb,Cl/KCL 4,000 ML SOLN.RECON 4000 ML PO (15:16)
[2023-04-27 15:46] VITALS: BP 128/61; PULSE 60; RESP 19; TEMP 36.4; O2SAT 97
[2023-04-27 16:08] LABS: Glucose, Whole Blood 139 mg/dL (60-115)
[2023-04-27 19:06] VITALS: BP 148/66; PULSE 61; RESP 18; TEMP 36.1; O2SAT 97
[2023-04-27 20:15] LABS: Glucose, Whole Blood 131 mg/dL (60-115)
[2023-04-27] MEDS: ondansetron HCL 4 MG/2 ML VIAL IVPUSH (21:48)
[2023-04-27 23:35] VITALS: BP 161/66; PULSE 66; RESP 20; TEMP 36.6; O2SAT 100
[2023-04-28] MEDS: metroNIDAZOLE/NS 500 MG/100 ML PIGGYBACK 100 MG IV ×3 (00:40→17:05)
--- NOTE | 2023-04-28 03:15 | PC.NURSE ---
Addendum entered by Tiffany Anderson RN 04/28/23 05:52: Pt has had one medium formed brown bowel movement. Bowel prep remains incomplete. Original Note: Pt is currently participating in prescribed bowel prep drink, less than half of bowel prep ingested, Pt not tolerating prep due to nausea, Zofran given per MAR with little effect, MD Dr Aparicio made aware Pt still complaining of nausea, Pt has not had a bowel movement in 3 days, Plan for colonoscopy tomorrow pending, Will continue to encourage bowel prep as tolerated, Per MD Dr Aparicio zofran can be administered now, 30 minutes prior to next PRN dose is due., Pt is resting in bed, respirations even and unlabored, call alvarado within reach.
[2023-04-28] MEDS: ondansetron HCL 4 MG/2 ML VIAL IVPUSH ×2 (03:25→10:18)
[2023-04-28 07:31] VITALS: BP 166/74; PULSE 80; RESP 20; TEMP 36.5; O2SAT 98
[2023-04-28 07:54] LABS: Glucose, Whole Blood 95 mg/dL (60-115)
[2023-04-28] MEDS: Pantoprazole Sodium 40 MG/10 ML VIAL IVPUSH (08:31)
[2023-04-28] MEDS: Atorvastatin Calcium 80 MG TABLET PO (08:33)
[2023-04-28] MEDS: Metoprolol Succinate ER 100 MG TAB.ER.24H PO (08:33)
[2023-04-28] MEDS: Losartan Potassium 50 MG TABLET 100 MG PO (08:33)
[2023-04-28] MEDS: 0.9 % Sodium Chloride 1,000 ML 100 ML IVCONT ×2 (08:54→23:05)
--- NOTE | 2023-04-28 09:07 | MHC.CM.PN ---
Female 63 DX Colitis She lives with her dtr/DIGITIZER/HCP/JENNIFER. Patient is WC bound. She has a R BKA. She has R side weakness r/t CVA. Plan for scope. DP home resume D[employer]ER services. Patient dtr will give her a ride home at discharge.
[2023-04-28 11:05] LABS: Glucose, Whole Blood 113 mg/dL (60-115)
[2023-04-28 11:25] LABS: Leukocytes Stool Qualitative NEGATIVE (NEGATIVE)
[2023-04-28 13:24] LABS: Adenovirus F 40/41 Not Detected (Not Detect.); Astrovirus Not Detected (Not Detect.); Campylobacter Not Detected (Not Detect.); Cryptosporidium Not Detected (Not Detect.); Cyclospora cayetanensis Not Detected (Not Detect.); E. coli EAEC Not Detected (Not Detect.); E. coli EPEC Not Detected (Not Detect.); E. coli ETEC Not Detected (Not Detect.); E. coli STEC Not Detected (Not Detect.); Entamoeba histolytica Not Detected (Not Detect.); Giardia lamblia Not Detected (Not Detect.); Norovirus GI/GII Not Detected (Not Detect.); Plesiomonas shigelloides Not Detected (Not Detect.); Rotavirus A Not Detected (Not Detect.); Salmonella Not Detected (Not Detect.); Sapovirus Not Detected (Not Detect.); Shigella sp./EIEC Not Detected (Not Detect.); Vibrio Not Detected (Not Detect.); Vibrio Cholerae Not Detected (Not Detect.); Yersinia enterocolitica Not Detected (Not Detect.)
[2023-04-28] MEDS: Sodium Phosphate,Mono-Dibasic 133 ML ENEMA PR (13:30)
--- NOTE | 2023-04-28 14:47 | P.CONAN_ITS ---
[facility] Active Problems Active Problems: All Active Problems (Updated 04/27/23 @ 05:32 by Lanette Nugent MD) Proctocolitis (Acute) Diabetic foot ulcer (Acute) Colitis (Acute) Acute metabolic encephalopathy (Acute) Hypoglycemia (Acute) Cellulitis (Acute) Presence of gastric pacemaker (Acute) Liver lesion (Acute) History of gastrostomy tube placement (Acute) CAD (coronary artery disease) (Acute) Past Medical History Medical History Anxiety Below knee amputation CAD (coronary artery disease) Cholelithiasis Chronic pain syndrome CVA (cerebral vascular accident) Delirium due to another medical condition Depression Diabetic foot ulcer Diabetic neuropathy associated with diabetes mellitus due to underlying condition Encephalopathy acute Gastroparesis History of gastrostomy tube placement History of peptic ulcer disease HTN (hypertension) Hyperglycemia Hypotonic neurogenic bladder IDDM (insulin dependent diabetes mellitus) Liver lesion Myocardial infarction Wheelchair bound Family History Family History Father Coronary arteriosclerosis Family history of problems with anesthesia: No Surgical History Surgical History History of back surgery Hx of BKA History of Problems with Anesthesia: No Social History Social History Household Members: None Housing: House Are you a primary rn acute care to a significant other at home: No Do you presently have visiting nurse or other home services: Yes Unable to assess alcohol history related to: Unable to respond Alcohol intake: former Comment: 1:1 sitter Patient Tobacco Use Status: Never used Tobacco Second Hand Smoke Exposure: No Advance Directives Date on File: 05/12/20 service: No Current occupational status: unemployed and disabled Meds Allergies Allergy/AdvReac Type Severity Reaction Status Date / Time Penicillins [PENICILLINS] Allergy Mild HIVES Verified 05/25/20 04:33 clarithromycin [From Biaxin] Allergy Unknown HIVES Verified 05/25/20 04:33 penicillin V Allergy Unknown rash, Verified 05/25/20 04:33 throat tight bioxin Allergy Unknown Unknown Uncoded 05/25/20 04:33 penicillin Allergy Unknown Unknown Uncoded 05/25/20 04:33 Active Medications: Current Medications Acetaminophen (Acetaminophen 325 Mg Tablet) 975 mg PO Q6H PRN PRN Reason: Pain, Mild (Pain Scale 1-3) Last Admin: 04/27/23 16:48 Dose: 975 mg Amitriptyline HCl (Amitriptyline Hcl 50 Mg Tablet) 50 mg PO BEDTIME [facility] Last Admin: 04/27/23 21:52 Dose: Not Given Aspirin (Aspirin Enteric Coated 81 Mg Tablet.Dr) 81 mg PO DAILY [facility] Last Admin: 04/27/23 10:29 Dose: Not Given Atorvastatin Calcium (Atorvastatin Calcium 80 Mg Tablet) 80 mg PO DAILY [facility] Last Admin: 04/28/23 08:33 Dose: 80 mg Dextrose (Dextrose 50 % 25 Gm/50 Ml Syringe) 25 gm IVPUSH Q15M PRN; Protocol PRN Reason: per Hypoglycemia Standing Ord. Glucose (Glucose Gel 15 Gm Gel..Gram.) 15 gm PO Q15M PRN; Protocol PRN Reason: per Hypoglycemia Standing Ord. Heparin Sodium (Porcine) (Heparin Sodium,Porcine 5,000 Unit/Ml Vial) 5,000 unit SUBCUT Q8H [facility] Last Admin: 04/27/23 09:46 Dose: Not Given Hydromorphone HCl (Hydromorphone Hcl 1 Mg/Ml Syringe) 0.5 mg IVPUSH Q4H PRN; Protocol PRN Reason: Pain, Severe (Pain Scale 7-10) Last Admin: 04/27/23 23:42 Dose: 0.5 mg Metronidazole (Flagyl) 500 mg in 100 mls @ 100 mls/hr IV Q8H [facility] Last Infusion: 04/28/23 09:42 Dose: Infused Levofloxacin (Levaquin) 500 mg in 100 mls @ 100 mls/hr IV DAILY@2200 [facility] Last Infusion: 04/27/23 23:36 Dose: Infused Sodium Chloride (Ns) 1,000 mls @ 100 mls/hr IVCONT .Q10H [facility] Last Admin: 04/28/23 08:54 Dose: 100 mls/hr Insulin Human Lispro (Insulin Lispro 100 Unit/Ml 3 Ml Vial) 0 unit SUBCUT Q6H [facility]; Protocol Last Admin: 04/28/23 11:15 Dose: Not Given Losartan Potassium (Losartan Potassium 50 Mg Tablet) 100 mg PO DAILY [facility]; Protocol Last Admin: 04/28/23 08:33 Dose: 100 mg Metoprolol Succinate (Metoprolol Succinate Er 100 Mg Tab.Er.24h) 100 mg PO BID [facility]; Protocol Last Admin: 04/28/23 08:33 Dose: 100 mg Ondansetron HCl (Ondansetron Hcl 4 Mg/2 Ml Vial) 4 mg IVPUSH Q6H PRN PRN Reason: Nausea and Vomiting Last Admin: 04/28/23 10:18 Dose: 4 mg Pantoprazole Sodium (Pantoprazole Sodium 40 Mg/10 Ml Vial) 40 mg IVPUSH DAILY [facility] Last Admin: 04/28/23 08:31 Dose: 40 mg Sodium Biphosphate/Sodium Phosphate (Sodium Phosphate,Falls-Dibasic 133 Ml Enema) 133 ml SD ONCE PRN PRN Reason: Pre-Op Surgical Prep Last Admin: 04/28/23 13:30 Dose: 133 ml Sodium Chloride (0.9 % Sodium Chloride Flush 3 Ml Syringe) 3 ml IVFLUSH QSHIFT [facility] Last Admin: 04/28/23 09:36 Dose: Not Given Home Medications Medication Instructions Recorded Confirmed Last Taken Type isosorbide mononitrate 30 mg 30 mg PO DAILY 05/12/20 04/27/23 01/29/21 History tablet,extended release 24 hr omeprazole 20 mg capsule,delayed 20 mg PO BID@0630,1630 05/12/20 04/27/23 01/27/21 History release topiramate 100 mg tablet 100 mg PO BID 05/12/20 04/27/23 01/29/21 History ergocalciferol (vitamin D2) 1,250 1,250 mcg PO RIVER 07/15/21 04/27/23 Unknown History mcg (50,000 unit) capsule nitroglycerin 0.4 mg sublingual 0.4 mg sublingual Q5M PRN Chest 07/15/21 04/27/23 Unknown History tablet (Nitrostat) Pain insulin glargine 100 unit/mL (3 40 unit subcut DAILY 07/22/21 04/27/23 Unknown History mL) subcutaneous pen (Lantus Solostar U-100 Insulin) amitriptyline 50 mg tablet 50 mg PO BEDTIME 04/27/23 04/27/23 Unknown History amlodipine 5 mg tablet 10 mg PO DAILY 04/27/23 04/27/23 Unknown History aspirin 81 mg tablet,delayed 81 mg PO DAILY 04/27/23 04/27/23 Unknown History release atorvastatin 80 mg tablet 80 mg PO BEDTIME 04/27/23 04/27/23 Unknown History gabapentin 100 mg capsule 100 mg PO TID 04/27/23 04/27/23 Unknown History losartan 100 mg tablet 100 mg PO BEDTIME 04/27/23 04/27/23 Unknown History metoprolol succinate 100 mg 100 mg PO BID 04/27/23 04/27/23 Unknown History tablet,extended release 24 hr Exam Height,Weight and Vital Signs: Height 5 ft 4 in Weight 74.34 kg Last Vital Signs Temp 97.7 F 04/28/23 07:31 Pulse 80 04/28/23 07:31 Resp 20 04/28/23 07:31 BP 166/74 H 04/28/23 07:31 Pulse Ox 98 04/28/23 07:31 O2 Del Method Room Air 04/28/23 07:31 Pertinent Lab Results Pertinent Lab Results: Laboratory Tests 04/26/23 04/26/23 04/26/23 16:52 16:56 18:24 WBC 8.2 RBC 2.94 L Hgb 9.3 L Hct 28.0 L MCV 95.2 MCH 31.6 MCHC 33.2 RDW 12.1 Plt Count 211 MPV 10.0 Immature Gran % (Auto) 0.2 Neut % (Auto) 62.0 Lymph % (Auto) 27.5 Falls % (Auto) 7.7 Eos % (Auto) 2.2 Baso % (Auto) 0.4 Lymph # (Auto) 2.3 Falls # (Auto) 0.6 Eos # (Auto) 0.2 Baso # (Auto) 0.0 Abs Immat Gran (auto) 0.02 Absolute Neuts (auto) 5.1 Absolute Nucleated RBC 0.000 Nucleated RBC % (auto) 0.0 ESR 44 H Sodium 140 Potassium 4.2 Chloride 109 H Carbon Dioxide 23 Anion Gap 12 BUN 18 H Creatinine 0.83 Estim Creat Clear Calc 68.5 Estimated GFR > 60 POC Glucose 128 H Random Glucose 174 H Calcium 9.8 Magnesium 1.9 Total Bilirubin 0.2 AST 15 ALT 10 Alkaline Phosphatase 68 C-Reactive Protein 2.71 H Total Protein 7.4 Albumin 3.9 Lipase 11 Urine Color Urine Appearance Urine pH Ur Specific [place] Urine Protein Urine Glucose (UA) Urine Ketones Urine Blood Urine Nitrite Ur Leukocyte Esterase Urine RBC Urine WBC Ur Squamous Epith Cells Urine Bacteria Hyaline Casts Stool Leukocytes, Qual Stl C. cayetanensis PCR Stool Rotavirus A PCR Stl Adenov F PCR Stool Astrovirus (PCR) Stool Campylobacter PCR Stool Cryptosporidium PCR Stl Sh Tox Pr E STEC PCR Stool E coli O157 PCR Stl Enterotoxigenic E PCR Stool EPEC (PCR) Stool EAEC (PCR) Stl E. histolytica PCR Stool Giardia Lamblia PCR Stl P. shigelloides PCR Stool Salmonella PCR Stool Sapovirus (PCR) Stl Shigella/EIEC PCR St Y.enterocolitica PCR Stool Vibrio (PCR) Stl Vibrio cholerae PCR Stl Norovirus GI/GII PCR COVID-19 (TA) Negative COVID-19 Clin Com See Note Influenza Type A (TIMOTHY) Negative Influenza Type B (TIMOTHY) Negative Influenza A & B Note See Note 04/26/23 04/27/23 04/27/23 20:06 00:39 05:12 WBC RBC Hgb Hct MCV MCH MCHC RDW Plt Count MPV Immature Gran % (Auto) Neut % (Auto) Lymph % (Auto) Falls % (Auto) Eos % (Auto) Baso % (Auto) Lymph # (Auto) Falls # (Auto) Eos # (Auto) Baso # (Auto) Abs Immat Gran (auto) Absolute Neuts (auto) Absolute Nucleated RBC Nucleated RBC % (auto) ESR Sodium 141 Potassium 3.6 Chloride 112 H Carbon Dioxide 22 Anion Gap 11 L BUN 15 Creatinine 0.71 Estim Creat Clear Calc 80.1 Estimated GFR > 60 POC Glucose 114 Random Glucose 108 Calcium 9.2 D Magnesium Total Bilirubin 0.2 AST 14 ALT 10 Alkaline Phosphatase 61 C-Reactive Protein Total Protein 6.7 Albumin 3.6 Lipase Urine Color Yellow Urine Appearance Clear Urine pH 7.0 Ur Specific [place] 1.010 Urine Protein Negative Urine Glucose (UA) Negative Urine Ketones Negative Urine Blood Negative Urine Nitrite Negative Ur Leukocyte Esterase Trace H Urine RBC 0-2 Urine WBC 6-10 H Ur Squamous Epith Cells 0-2 Urine Bacteria None Seen Hyaline Casts 0-2 Stool Leukocytes, Qual Stl C. cayetanensis PCR Stool Rotavirus A PCR Stl Adenov F 40 PCR Stool Astrovirus (PCR) Stool Campylobacter PCR Stool Cryptosporidium PCR Stl Sh Tox Pr E STEC PCR Stool E coli O157 PCR Stl Enterotoxigenic E PCR Stool EPEC (PCR) Stool EAEC (PCR) Stl E. histolytica PCR Stool Giardia Lamblia PCR Stl P. shigelloides PCR Stool Salmonella PCR Stool Sapovirus (PCR) Stl Shigella/EIEC PCR St Y.enterocolitica PCR Stool Vibrio (PCR) Stl Vibrio cholerae PCR Stl Norovirus GI/GII PCR COVID-19 (TA) COVID-19 Clin Com Influenza Type A (TIMOTHY) Influenza Type B (TIMOTHY) Influenza A & B Note 04/27/23 04/27/23 04/27/23 06:32 11:39 16:04 WBC RBC Hgb Hct MCV MCH MCHC RDW Plt Count MPV Immature Gran % (Auto) Neut % (Auto) Lymph % (Auto) Falls % (Auto) Eos % (Auto) Baso % (Auto) Lymph # (Auto) Falls # (Auto) Eos # (Auto) Baso # (Auto) Abs Immat Gran (auto) Absolute Neuts (auto) Absolute Nucleated RBC Nucleated RBC % (auto) ESR Sodium Potassium Chloride Carbon Dioxide Anion Gap BUN Creatinine Estim Creat Clear Calc Estimated GFR POC Glucose 104 87 139 H Random Glucose Calcium Magnesium Total Bilirubin AST ALT Alkaline Phosphatase C-Reactive Protein Total Protein Albumin Lipase Urine Color Urine Appearance Urine pH Ur Specific [place] Urine Protein Urine Glucose (UA) Urine Ketones Urine Blood Urine Nitrite Ur Leukocyte Esterase Urine RBC Urine WBC Ur Squamous Epith Cells Urine Bacteria Hyaline Casts Stool Leukocytes, Qual Stl C. cayetanensis PCR Stool Rotavirus A PCR Stl Adenov F 40/41 PCR Stool Astrovirus (PCR) Stool Campylobacter PCR Stool Cryptosporidium PCR Stl Sh Tox Pr E STEC PCR Stool E coli O157 PCR Stl Enterotoxigenic E PCR Stool EPEC (PCR) Stool EAEC (PCR) Stl E. histolytica PCR Stool Giardia Lamblia PCR Stl P. shigelloides PCR Stool Salmonella PCR Stool Sapovirus (PCR) Stl Shigella/EIEC PCR St Y.enterocolitica PCR Stool Vibrio (PCR) Stl Vibrio cholerae PCR Stl Norovirus GI/GII PCR COVID-19 (TA) COVID-19 Clin Com Influenza Type A (TIMOTHY) Influenza Type B (TIMOTHY) Influenza A & B Note 04/27/23 04/28/23 04/28/23 20:10 07:33 10:19 WBC RBC Hgb Hct MCV MCH MCHC RDW Plt Count MPV Immature Gran % (Auto) Neut % (Auto) Lymph % (Auto) Falls % (Auto) Eos % (Auto) Baso % (Auto) Lymph # (Auto) Falls # (Auto) Eos # (Auto) Baso # (Auto) Abs Immat Gran (auto) Absolute Neuts (auto) Absolute Nucleated RBC Nucleated RBC % (auto) ESR Sodium Potassium Chloride Carbon Dioxide Anion Gap BUN Creatinine Estim Creat Clear Calc Estimated GFR POC Glucose 131 H 95 Random Glucose Calcium Magnesium Total Bilirubin AST ALT Alkaline Phosphatase C-Reactive Protein Total Protein Albumin Lipase Urine Color Urine Appearance Urine pH Ur Specific [place] Urine Protein Urine Glucose (UA) Urine Ketones Urine Blood Urine Nitrite Ur Leukocyte Esterase Urine RBC Urine WBC Ur Squamous Epith Cells Urine Bacteria Hyaline Casts Stool Leukocytes, Qual NEGATIVE Stl C. cayetanensis PCR Not Detected Stool Rotavirus A PCR Not Detected Stl Adenov F 40/41 PCR Not Detected Stool Astrovirus (PCR) Not Detected Stool Campylobacter PCR Not Detected Stool Cryptosporidium PCR Not Detected Stl Sh Tox Pr E STEC PCR Not Detected Stool E coli O157 PCR Not applicable Stl Enterotoxigenic E PCR Not Detected Stool EPEC (PCR) Not Detected Stool EAEC (PCR) Not Detected Stl E. histolytica PCR Not Detected Stool Giardia Lamblia PCR Not Detected Stl P. shigelloides PCR Not Detected Stool Salmonella PCR Not Detected Stool Sapovirus (PCR) Not Detected Stl Shigella/EIEC PCR Not Detected St Y.enterocolitica PCR Not Detected Stool Vibrio (PCR) Not Detected Stl Vibrio cholerae PCR Not Detected Stl Norovirus GI/GII PCR Not Detected COVID-19 (TA) COVID-19 Clin Com Influenza Type A (TIMOTHY) Influenza Type B (TIMOTHY) Influenza A & B Note 04/28/23 11:01 WBC RBC Hgb Hct MCV MCH MCHC RDW Plt Count MPV Immature Gran % (Auto) Neut % (Auto) Lymph % (Auto) Falls % (Auto) Eos % (Auto) Baso % (Auto) Lymph # (Auto) [place] # (Auto) Eos # (Auto) Baso # (Auto) Abs Immat Gran (auto) Absolute Neuts (auto) Absolute Nucleated RBC Nucleated RBC % (auto) ESR Sodium Potassium Chloride Carbon Dioxide Anion Gap BUN Creatinine Estim Creat Clear Calc Estimated GFR POC Glucose 113 Random Glucose Calcium Magnesium Total Bilirubin AST ALT Alkaline Phosphatase C-Reactive Protein Total Protein Albumin Lipase Urine Color Urine Appearance Urine pH Ur Specific [place] Urine Protein Urine Glucose (UA) Urine Ketones Urine Blood Urine Nitrite Ur Leukocyte Esterase Urine RBC Urine WBC Ur Squamous Epith Cells Urine Bacteria Hyaline Casts Stool Leukocytes, Qual Stl C. cayetanensis PCR Stool Rotavirus A PCR Stl Adenov F 40/41 PCR Stool Astrovirus (PCR) Stool Campylobacter PCR Stool Cryptosporidium PCR Stl Sh Tox Pr E STEC PCR Stool E coli O157 PCR Stl Enterotoxigenic E PCR Stool EPEC (PCR) Stool EAEC (PCR) Stl E. histolytica PCR Stool Giardia Lamblia PCR Stl P. shigelloides PCR Stool Salmonella PCR Stool Sapovirus (PCR) Stl Shigella/EIEC PCR St Y.enterocolitica PCR Stool Vibrio (PCR) Stl Vibrio cholerae PCR Stl Norovirus GI/GII PCR COVID-19 (TA) COVID-19 Clin Com Influenza Type A (TIMOTHY) Influenza Type B (TIMOTHY) Influenza A & B Note Airway Mallampati Class: II TM Dist: >3cm Neck ROM: Full Denture: Upper and Lower Assessment and Plan Assessment Anesthesia Assessment: Anesthesia Plan Discussed and Chart Reviewed Final Anesthetic Review Family History of Problems with Anesthesia: No History of Problems with Anesthesia: No NPO: Yes ASA Class: III Final Preanesthetic Review: No Changes in Pt Med Stat, Meds/Allgs Chart Reviewed , Consent Obtained/Reviewed and Anes Risks/Benef Reviewed Patient Risk: High Procedure Risk: Low Anesthetic Plan Anesthetic Plan: TIVA Disposition: Standard PACU
[2023-04-28 14:49] VITALS: BMI 28.1
--- NOTE | 2023-04-28 14:50 | HO.ANESPROP2 ---
[facility] Active Problems Active Problems: All Active Problems Proctocolitis (Acute) Diabetic foot ulcer (Acute) Colitis (Acute) Acute metabolic encephalopathy (Acute) Hypoglycemia (Acute) Cellulitis (Acute) Presence of gastric pacemaker (Acute) Liver lesion (Acute) History of gastrostomy tube placement (Acute) CAD (coronary artery disease) (Acute) Past Medical History Medical History Anxiety Below knee amputation CAD (coronary artery disease) Cholelithiasis Chronic pain syndrome CVA (cerebral vascular accident) Delirium due to another medical condition Depression Diabetic foot ulcer Diabetic neuropathy associated with diabetes mellitus due to underlying condition Encephalopathy acute Gastroparesis History of gastrostomy tube placement History of peptic ulcer disease HTN (hypertension) Hyperglycemia Hypotonic neurogenic bladder IDDM (insulin dependent diabetes mellitus) Liver lesion Myocardial infarction Wheelchair bound Family History Family History Father Coronary arteriosclerosis Family history of problems with anesthesia: No Surgical History Surgical History History of back surgery Hx of BKA History of Problems with Anesthesia: No Social History Social History Household Members: None Housing: House Are you a primary intensive care ambulance paramedic to a significant other at home: No Do you presently have visiting nurse or other home services: Yes Unable to assess alcohol history related to: Unable to respond Alcohol intake: former Comment: 1:1 sitter Patient Tobacco Use Status: Never used Tobacco Second Hand Smoke Exposure: No Advance Directives Date on File: 05/12/20 service: No Current occupational status: unemployed and disabled Meds Allergies Allergy/AdvReac Type Severity Reaction Status Date / Time Penicillins [PENICILLINS] Allergy Mild HIVES Verified 05/25/20 04:33 clarithromycin [From Biaxin] Allergy Unknown HIVES Verified 05/25/20 04:33 penicillin V Allergy Unknown rash, Verified 05/25/20 04:33 throat tight bioxin Allergy Unknown Unknown Uncoded 05/25/20 04:33 penicillin Allergy Unknown Unknown Uncoded 05/25/20 04:33 Active Medications: Current Medications Acetaminophen (Acetaminophen 325 Mg Tablet) 975 mg PO Q6H PRN PRN Reason: Pain, Mild (Pain Scale 1-3) Last Admin: 04/27/23 16:48 Dose: 975 mg Amitriptyline HCl (Amitriptyline Hcl 50 Mg Tablet) 50 mg PO BEDTIME [facility] Last Admin: 04/27/23 21:52 Dose: Not Given Aspirin (Aspirin Enteric Coated 81 Mg Tablet.Dr) 81 mg PO DAILY [facility] Last Admin: 04/27/23 10:29 Dose: Not Given Atorvastatin Calcium (Atorvastatin Calcium 80 Mg Tablet) 80 mg PO DAILY [facility] Last Admin: 04/28/23 08:33 Dose: 80 mg Dextrose (Dextrose 50 % 25 Gm/50 Ml Syringe) 25 gm IVPUSH Q15M PRN; Protocol PRN Reason: per Hypoglycemia Standing Ord. Glucose (Glucose Gel 15 Gm Gel..Gram.) 15 gm PO Q15M PRN; Protocol PRN Reason: per Hypoglycemia Standing Ord. Heparin Sodium (Porcine) (Heparin Sodium,Porcine 5,000 Unit/Ml Vial) 5,000 unit SUBCUT Q8H [facility] Last Admin: 04/27/23 09:46 Dose: Not Given Hydromorphone HCl (Hydromorphone Hcl 1 Mg/Ml Syringe) 0.5 mg IVPUSH Q4H PRN; Protocol PRN Reason: Pain, Severe (Pain Scale 7-10) Last Admin: 04/27/23 23:42 Dose: 0.5 mg Metronidazole (Flagyl) 500 mg in 100 mls @ 100 mls/hr IV Q8H [facility] Last Infusion: 04/28/23 09:42 Dose: Infused Levofloxacin (Levaquin) 500 mg in 100 mls @ 100 mls/hr IV DAILY@2200 [facility] Last Infusion: 04/27/23 23:36 Dose: Infused Sodium Chloride (Ns) 1,000 mls @ 100 mls/hr IVCONT .Q10H [facility] Last Admin: 04/28/23 08:54 Dose: 100 mls/hr Insulin Human Lispro (Insulin Lispro 100 Unit/Ml 3 Ml Vial) 0 unit SUBCUT Q6H [facility]; Protocol Last Admin: 04/28/23 11:15 Dose: Not Given Losartan Potassium (Losartan Potassium 50 Mg Tablet) 100 mg PO DAILY [facility]; Protocol Last Admin: 04/28/23 08:33 Dose: 100 mg Metoprolol Succinate (Metoprolol Succinate Er 100 Mg Tab.Er.24h) 100 mg PO BID [facility]; Protocol Last Admin: 04/28/23 08:33 Dose: 100 mg Ondansetron HCl (Ondansetron Hcl 4 Mg/2 Ml Vial) 4 mg IVPUSH Q6H PRN PRN Reason: Nausea and Vomiting Last Admin: 04/28/23 10:18 Dose: 4 mg Pantoprazole Sodium (Pantoprazole Sodium 40 Mg/10 Ml Vial) 40 mg IVPUSH DAILY [facility] Last Admin: 04/28/23 08:31 Dose: 40 mg Sodium Biphosphate/Sodium Phosphate (Sodium Phosphate,[place]-Dibasic 133 Ml Enema) 133 ml [place] ONCE PRN PRN Reason: Pre-Op Surgical Prep Last Admin: 04/28/23 13:30 Dose: 133 ml Sodium Chloride (0.9 % Sodium Chloride Flush 3 Ml Syringe) 3 ml IVFLUSH QSHIFT [facility] Last Admin: 04/28/23 09:36 Dose: Not Given Home Medications Medication Instructions Recorded Confirmed Last Taken Type isosorbide mononitrate 30 mg 30 mg PO DAILY 05/12/20 04/27/23 01/29/21 History tablet,extended release 24 hr omeprazole 20 mg capsule,delayed 20 mg PO BID@0630,1630 05/12/20 04/27/23 01/27/21 History release topiramate 100 mg tablet 100 mg PO BID 05/12/20 04/27/23 01/29/21 History ergocalciferol (vitamin D2) 1,250 1,250 mcg PO RIVER 07/15/21 04/27/23 Unknown History mcg (50,000 unit) capsule nitroglycerin 0.4 mg sublingual 0.4 mg sublingual Q5M PRN Chest 07/15/21 04/27/23 Unknown History tablet (Nitrostat) Pain insulin glargine 100 unit/mL (3 40 unit subcut DAILY 07/22/21 04/27/23 Unknown History mL) subcutaneous pen (Lantus Solostar U-100 Insulin) amitriptyline 50 mg tablet 50 mg PO BEDTIME 04/27/23 04/27/23 Unknown History amlodipine 5 mg tablet 10 mg PO DAILY 04/27/23 04/27/23 Unknown History aspirin 81 mg tablet,delayed 81 mg PO DAILY 04/27/23 04/27/23 Unknown History release atorvastatin 80 mg tablet 80 mg PO BEDTIME 04/27/23 04/27/23 Unknown History gabapentin 100 mg capsule 100 mg PO TID 04/27/23 04/27/23 Unknown History losartan 100 mg tablet 100 mg PO BEDTIME 04/27/23 04/27/23 Unknown History metoprolol succinate 100 mg 100 mg PO BID 04/27/23 04/27/23 Unknown History tablet,extended release 24 hr Exam Height,Weight and Vital Signs: Height 5 ft 4 in Weight 74.34 kg Last Vital Signs Temp 97.7 F 04/28/23 07:31 Pulse 80 04/28/23 07:31 Resp 20 04/28/23 07:31 BP 166/74 H 04/28/23 07:31 Pulse Ox 98 04/28/23 07:31 O2 Del Method Room Air 04/28/23 07:31 Pertinent Lab Results Pertinent Lab Results: Laboratory Tests 04/26/23 04/26/23 04/26/23 16:52 16:56 18:24 WBC 8.2 RBC 2.94 L Hgb 9.3 L Hct 28.0 L MCV 95.2 MCH 31.6 MCHC 33.2 RDW 12.1 Plt Count 211 MPV 10.0 Immature Gran % (Auto) 0.2 Neut % (Auto) 62.0 Lymph % (Auto) 27.5 Bleckley % (Auto) 7.7 Eos % (Auto) 2.2 Baso % (Auto) 0.4 Lymph # (Auto) 2.3 [place]ck[place] # (Auto) 0.6 Eos # (Auto) 0.2 Baso # (Auto) 0.0 Abs Immat Gran (auto) 0.02 Absolute Neuts (auto) 5.1 Absolute Nucleated RBC 0.000 Nucleated RBC % (auto) 0.0 ESR 44 H Sodium 140 Potassium 4.2 Chloride 109 H Carbon Dioxide 23 Anion Gap 12 BUN 18 H Creatinine 0.83 Estim Creat Clear Calc 68.5 Estimated GFR > 60 POC Glucose 128 H Random Glucose 174 H Calcium 9.8 Magnesium 1.9 Total Bilirubin 0.2 AST 15 ALT 10 Alkaline Phosphatase 68 C-Reactive Protein 2.71 H Total Protein 7.4 Albumin 3.9 Lipase 11 Urine Color Urine Appearance Urine pH Ur Specific Bernard Urine Protein Urine Glucose (UA) Urine Ketones Urine Blood Urine Nitrite Ur Leukocyte Esterase Urine RBC Urine WBC Ur Squamous Epith Cells Urine Bacteria Hyaline Casts Stool Leukocytes, Qual Stl C. cayetanensis PCR Stool Rotavirus A PCR Stl Adenov F PCR Stool Astrovirus (PCR) Stool Campylobacter PCR Stool Cryptosporidium PCR Stl Sh Tox Pr E STEC PCR Stool E coli O157 PCR Stl Enterotoxigenic E PCR Stool EPEC (PCR) Stool EAEC (PCR) Stl E. histolytica PCR Stool Giardia Lamblia PCR Stl P. shigelloides PCR Stool Salmonella PCR Stool Sapovirus (PCR) Stl Shigella/EIEC PCR St Y.enterocolitica PCR Stool Vibrio (PCR) Stl Vibrio cholerae PCR Stl Norovirus GI/GII PCR COVID-19 (TA) Negative COVID-19 Clin Com See Note Influenza Type A (TIMOTHY) Negative Influenza Type B (TIMOTHY) Negative Influenza A & B Note See Note 04/26/23 04/27/23 04/27/23 20:06 00:39 05:12 WBC RBC Hgb Hct MCV MCH MCHC RDW Plt Count MPV Immature Gran % (Auto) Neut % (Auto) Lymph % (Auto) [place]ck[place] % (Auto) Eos % (Auto) Baso % (Auto) Lymph # (Auto) Bleck[place] # (Auto) Eos # (Auto) Baso # (Auto) Abs Immat Gran (auto) Absolute Neuts (auto) Absolute Nucleated RBC Nucleated RBC % (auto) ESR Sodium 141 Potassium 3.6 Chloride 112 H Carbon Dioxide 22 Anion Gap 11 L BUN 15 Creatinine 0.71 Estim Creat Clear Calc 80.1 Estimated GFR > 60 POC Glucose 114 Random Glucose 108 Calcium 9.2 D Magnesium Total Bilirubin 0.2 AST 14 ALT 10 Alkaline Phosphatase 61 C-Reactive Protein Total Protein 6.7 Albumin 3.6 Lipase Urine Color Yellow Urine Appearance Clear Urine pH 7.0 Ur Specific Bernard 1.010 Urine Protein Negative Urine Glucose (UA) Negative Urine Ketones Negative Urine Blood Negative Urine Nitrite Negative Ur Leukocyte Esterase Trace H Urine RBC 0-2 Urine WBC 6-10 H Ur Squamous Epith Cells 0-2 Urine Bacteria None Seen Hyaline Casts 0-2 Stool Leukocytes, Qual Stl C. cayetanensis PCR Stool Rotavirus A PCR Stl Adenov F PCR Stool Astrovirus (PCR) Stool Campylobacter PCR Stool Cryptosporidium PCR Stl Sh Tox Pr E STEC PCR Stool E coli O157 PCR Stl Enterotoxigenic E PCR Stool EPEC (PCR) Stool EAEC (PCR) Stl E. histolytica PCR Stool Giardia Lamblia PCR Stl P. shigelloides PCR Stool Salmonella PCR Stool Sapovirus (PCR) Stl Shigella/EIEC PCR St Y.enterocolitica PCR Stool Vibrio (PCR) Stl Vibrio cholerae PCR Stl Norovirus GI/GII PCR COVID-19 (TA) COVID-19 Clin Com Influenza Type A (TIMOTHY) Influenza Type B (TIMOTHY) Influenza A & B Note 04/27/23 04/27/23 04/27/23 06:32 11:39 16:04 WBC RBC Hgb Hct MCV MCH MCHC RDW Plt Count MPV Immature Gran % (Auto) Neut % (Auto) Lymph % (Auto) Bleck[place] % (Auto) Eos % (Auto) Baso % (Auto) Lymph # (Auto) [place]ck[place] # (Auto) Eos # (Auto) Baso # (Auto) Abs Immat Gran (auto) Absolute Neuts (auto) Absolute Nucleated RBC Nucleated RBC % (auto) ESR Sodium Potassium Chloride Carbon Dioxide Anion Gap BUN Creatinine Estim Creat Clear Calc Estimated GFR POC Glucose 104 87 139 H Random Glucose Calcium Magnesium Total Bilirubin AST ALT Alkaline Phosphatase C-Reactive Protein Total Protein Albumin Lipase Urine Color Urine Appearance Urine pH Ur Specific Bernard Urine Protein Urine Glucose (UA) Urine Ketones Urine Blood Urine Nitrite Ur Leukocyte Esterase Urine RBC Urine WBC Ur Squamous Epith Cells Urine Bacteria Hyaline Casts Stool Leukocytes, Qual Stl C. cayetanensis PCR Stool Rotavirus A PCR Stl Adenov F 40/41 PCR Stool Astrovirus (PCR) Stool Campylobacter PCR Stool Cryptosporidium PCR Stl Sh Tox Pr E STEC PCR Stool E coli O157 PCR Stl Enterotoxigenic E PCR Stool EPEC (PCR) Stool EAEC (PCR) Stl E. histolytica PCR Stool Giardia Lamblia PCR Stl P. shigelloides PCR Stool Salmonella PCR Stool Sapovirus (PCR) Stl Shigella/EIEC PCR St Y.enterocolitica PCR Stool Vibrio (PCR) Stl Vibrio cholerae PCR Stl Norovirus GI/GII PCR COVID-19 (TA) COVID-19 Clin Com Influenza Type A (TIMOTHY) Influenza Type B (TIMOTHY) Influenza A & B Note 04/27/23 04/28/23 04/28/23 20:10 07:33 10:19 WBC RBC Hgb Hct MCV MCH MCHC RDW Plt Count MPV Immature Gran % (Auto) Neut % (Auto) Lymph % (Auto) Bleck[place] % (Auto) Eos % (Auto) Baso % (Auto) Lymph # (Auto) [place]ck[place] # (Auto) Eos # (Auto) Baso # (Auto) Abs Immat Gran (auto) Absolute Neuts (auto) Absolute Nucleated RBC Nucleated RBC % (auto) ESR Sodium Potassium Chloride Carbon Dioxide Anion Gap BUN Creatinine Estim Creat Clear Calc Estimated GFR POC Glucose 131 H 95 Random Glucose Calcium Magnesium Total Bilirubin AST ALT Alkaline Phosphatase C-Reactive Protein Total Protein Albumin Lipase Urine Color Urine Appearance Urine pH Ur Specific Bernard Urine Protein Urine Glucose (UA) Urine Ketones Urine Blood Urine Nitrite Ur Leukocyte Esterase Urine RBC Urine WBC Ur Squamous Epith Cells Urine Bacteria Hyaline Casts Stool Leukocytes, Qual NEGATIVE Stl C. cayetanensis PCR Not Detected Stool Rotavirus A PCR Not Detected Stl Adenov F 40/41 PCR Not Detected Stool Astrovirus (PCR) Not Detected Stool Campylobacter PCR Not Detected Stool Cryptosporidium PCR Not Detected Stl Sh Tox Pr E STEC PCR Not Detected Stool E coli O157 PCR Not applicable Stl Enterotoxigenic E PCR Not Detected Stool EPEC (PCR) Not Detected Stool EAEC (PCR) Not Detected Stl E. histolytica PCR Not Detected Stool Giardia Lamblia PCR Not Detected Stl P. shigelloides PCR Not Detected Stool Salmonella PCR Not Detected Stool Sapovirus (PCR) Not Detected Stl Shigella/EIEC PCR Not Detected St Y.enterocolitica PCR Not Detected Stool Vibrio (PCR) Not Detected Stl Vibrio cholerae PCR Not Detected Stl Norovirus GI/GII PCR Not Detected COVID-19 (TA) COVID-19 [facility] Com Influenza Type A (TIMOTHY) Influenza Type B (TIMOTHY) Influenza A & B Note 04/28/23 11:01 WBC RBC Hgb Hct MCV MCH MCHC RDW Plt Count MPV Immature Gran % (Auto) Neut % (Auto) Lymph % (Auto) [place]ck[place] % (Auto) Eos % (Auto) Baso % (Auto) Lymph # (Auto) [place]ck[place] # (Auto) Eos # (Auto) Baso # (Auto) Abs Immat Gran (auto) Absolute Neuts (auto) Absolute Nucleated RBC Nucleated RBC % (auto) ESR Sodium Potassium Chloride Carbon Dioxide Anion Gap BUN Creatinine Estim Creat Clear Calc Estimated GFR POC Glucose 113 Random Glucose Calcium Magnesium Total Bilirubin AST ALT Alkaline Phosphatase C-Reactive Protein Total Protein Albumin Lipase Urine Color Urine Appearance Urine pH Ur Specific Bernard Urine Protein Urine Glucose (UA) Urine Ketones Urine Blood Urine Nitrite Ur Leukocyte Esterase Urine RBC Urine WBC Ur Squamous Epith Cells Urine Bacteria Hyaline Casts Stool Leukocytes, Qual Stl C. cayetanensis PCR Stool Rotavirus A PCR Stl Adenov F 40 PCR Stool Astrovirus (PCR) Stool Campylobacter PCR Stool Cryptosporidium PCR Stl Sh Tox Pr E STEC PCR Stool E coli O157 PCR Stl Enterotoxigenic E PCR Stool EPEC (PCR) Stool EAEC (PCR) Stl E. histolytica PCR Stool Giardia Lamblia PCR Stl P. shigelloides PCR Stool Salmonella PCR Stool Sapovirus (PCR) Stl Shigella/EIEC PCR St Y.enterocolitica PCR Stool Vibrio (PCR) Stl Vibrio cholerae PCR Stl Norovirus GI/GII PCR COVID-19 (TA) COVID-19 Clin Com Influenza Type A (TIMOTHY) Influenza Type B (TIMOTHY) Influenza A & B Note Assessment and Plan Final Anesthetic Review Family History of Problems with Anesthesia: No History of Problems with Anesthesia: No
--- NOTE | 2023-04-28 14:53 | MHC.SHP ---
Pre-Procedural Eval Section A - 24 Hr Update-Section A only Date of Service: 04/28/23 The patient is an INPATIENT: Yes Changes since office visit: No Cold of Flu in the past 2 weeks, No New Medical Problems, No Changes in Medication and No Patient answered all questions The patient has been examined within 24 hours of the surgical procedure. The History & Physical has been completed within 30 days and I have reviewed it.: Yes Section B - Complete if H&P > 30 days Chief Complaint: Colitis Allergies: Allergies Allergy/AdvReac Type Severity Reaction Status Date / Time Penicillins [PENICILLINS] Allergy Mild HIVES Verified 05/25/20 04:33 clarithromycin [From Biaxin] Allergy Unknown HIVES Verified 05/25/20 04:33 penicillin V Allergy Unknown rash, Verified 05/25/20 04:33 throat tight bioxin Allergy Unknown Unknown Uncoded 05/25/20 04:33 penicillin Allergy Unknown Unknown Uncoded 05/25/20 04:33 Plan I have reviewed the history and physical and performed a pertinent physical examination on my patient. No changes have occurred unless specified. Time Spent With Patient Time: Total time managing care of this patient today ____ minutes.
--- NOTE | 2023-04-28 15:31 | PM.OP ---
Brief Operative Note Date of Service: 04/28/23 Pre-op diagnosis: colitis Post-op diagnosis: same Procedure: colonoscopy Surgeon: Elia Blue MD Anesthesia: MAC Was an Speech Language Assistant used for this Procedure?: No Estimated blood loss (mL): 5 Pathology: other Condition: stable Disposition: PACU
--- NOTE | 2023-04-28 15:32 | HO.PM.IMPN ---
Subjective Subjective Date of Service: 04/28/23 Interval History: No acute issues overnight. NPO for colonoscopy Review of Systems Denies chest pain Denies shortness of breath Denies nausea vomiting diarrhea Denies fever chills Physical Exam Vital Signs: Vital Signs: Last Vital Signs Temp 97.7 F 04/28/23 07:31 Pulse 80 04/28/23 07:31 Resp 20 04/28/23 07:31 BP 166/74 H 04/28/23 07:31 Pulse Ox 98 04/28/23 07:31 O2 Del Method Room Air 04/28/23 07:31 BMI result Body Mass Index 28.1 Const: Other: No acute distress Resp: Other: Clear to auscultation bilaterally no rales rhonchi or wheezes Cardio: Other: No S4; positive S1-S2; no S3 murmurs rubs or gallops GI: Other: Soft nontender nondistended normoactive bowel sounds Extrem: Other: No edema bilaterally Objective Data Active Medications Acetaminophen (Acetaminophen 325 Mg Tablet) 975 mg PO Q6H PRN PRN Reason: Pain, Mild (Pain Scale 1-3) Last Admin: 04/27/23 16:48 Dose: 975 mg Documented By: MARI Amitriptyline HCl (Amitriptyline Hcl 50 Mg Tablet) 50 mg PO BEDTIME [facility] Last Admin: 04/27/23 21:52 Dose: Not Given Documented By: REYNA Non-Admin Reason: Nausea Aspirin (Aspirin Enteric Coated 81 Mg Tablet.) 81 mg PO DAILY [facility] Last Admin: 04/27/23 10:29 Dose: Not Given Documented By: MARI Non-Admin Reason: Physician Held Med Atorvastatin Calcium (Atorvastatin Calcium 80 Mg Tablet) 80 mg PO DAILY [facility] Last Admin: 04/28/23 08:33 Dose: 80 mg Documented By: MARI Dextrose (Dextrose 50 % 25 Gm/50 Ml Syringe) 25 gm IVPUSH Q15M PRN; Protocol PRN Reason: per Hypoglycemia Standing Ord. Glucose (Glucose Gel 15 Gm Gel..Gram.) 15 gm PO Q15M PRN; Protocol PRN Reason: per Hypoglycemia Standing Ord. Heparin Sodium (Porcine) (Heparin Sodium,Porcine 5,000 Unit/Ml Vial) 5,000 unit SUBCUT Q8H [facility] Last Admin: 04/27/23 09:46 Dose: Not Given Documented By: JEAN-PIERRE Non-Admin Reason: Physician Held Med Hydromorphone HCl (Hydromorphone Hcl 1 Mg/Ml Syringe) 0.5 mg IVPUSH Q4H PRN; Protocol PRN Reason: Pain, Severe (Pain Scale 7-10) Last Admin: 04/27/23 23:42 Dose: 0.5 mg Documented By: ZOË Metronidazole (Flagyl) 500 mg in 100 mls @ 100 mls/hr IV Q8H [facility] Last Infusion: 04/28/23 09:42 Dose: Infused Documented By: MARI Levofloxacin (Levaquin) 500 mg in 100 mls @ 100 mls/hr IV DAILY@2200 [facility] Last Infusion: 04/27/23 23:36 Dose: Infused Documented By: ZOË Sodium Chloride (Ns) 1,000 mls @ 100 mls/hr IVCONT .Q10H [facility] Last Admin: 04/28/23 08:54 Dose: 100 mls/hr Documented By: MARI Insulin Human Lispro (Insulin Lispro 100 Unit/Ml 3 Ml Vial) 0 unit SUBCUT Q6H [facility]; Protocol Last Admin: 04/28/23 11:15 Dose: Not Given Documented By: AMRI Non-Admin Reason: NPO Losartan Potassium (Losartan Potassium 50 Mg Tablet) 100 mg PO DAILY [facility]; Protocol Last Admin: 04/28/23 08:33 Dose: 100 mg Documented By: MARI Metoprolol Succinate (Metoprolol Succinate Er 100 Mg Tab.Er.24h) 100 mg PO BID [facility]; Protocol Last Admin: 04/28/23 08:33 Dose: 100 mg Documented By: MARI Ondansetron HCl (Ondansetron Hcl 4 Mg/2 Ml Vial) 4 mg IVPUSH Q6H PRN PRN Reason: Nausea and Vomiting Last Admin: 04/28/23 10:18 Dose: 4 mg Documented By: MARI Pantoprazole Sodium (Pantoprazole Sodium 40 Mg/10 Ml Vial) 40 mg IVPUSH DAILY [facility] Last Admin: 04/28/23 08:31 Dose: 40 mg Documented By: MARI Sodium Biphosphate/Sodium Phosphate (Sodium Phosphate,[place]-Dibasic 133 Ml Enema) 133 ml [place] ONCE PRN PRN Reason: Pre-Op Surgical Prep Last Admin: 04/28/23 13:30 Dose: 133 ml Documented By: MARI Sodium Chloride (0.9 % Sodium Chloride Flush 3 Ml Syringe) 3 ml IVFLUSH QSHIFT [facility] Last Admin: 04/28/23 09:36 Dose: Not Given Documented By: MARI Non-Admin Reason: IV Running Labs 04/26/23 16:52 04/27/23 05:12 Labs: Laboratory Results - last 24 hr 04/27/23 04/27/23 04/28/23 16:04 20:10 07:33 POC Glucose 139 H 131 H 95 Stool Leukocytes, Qual Stl C. cayetanensis PCR Stool Rotavirus A PCR Stl Adenov F 40/41 PCR Stool Astrovirus (PCR) Stool Campylobacter PCR Stool Cryptosporidium PCR Stl Sh Tox Pr E STEC PCR Stool E coli O157 PCR Stl Enterotoxigenic E PCR Stool EPEC (PCR) Stool EAEC (PCR) Stl E. histolytica PCR Stool Giardia Lamblia PCR Stl P. shigelloides PCR Stool Salmonella PCR Stool Sapovirus (PCR) Stl Shigella/EIEC PCR St Y.enterocolitica PCR Stool Vibrio (PCR) Stl Vibrio cholerae PCR Stl Norovirus GI/GII PCR 04/28/23 04/28/23 10:19 11:01 POC Glucose 113 Stool Leukocytes, Qual NEGATIVE Stl C. cayetanensis PCR Not Detected Stool Rotavirus A PCR Not Detected Stl Adenov F 40/41 PCR Not Detected Stool Astrovirus (PCR) Not Detected Stool Campylobacter PCR Not Detected Stool Cryptosporidium PCR Not Detected Stl Sh Tox Pr E STEC PCR Not Detected Stool E coli O157 PCR Not applicable Stl Enterotoxigenic E PCR Not Detected Stool EPEC (PCR) Not Detected Stool EAEC (PCR) Not Detected Stl E. histolytica PCR Not Detected Stool Giardia Lamblia PCR Not Detected Stl P. shigelloides PCR Not Detected Stool Salmonella PCR Not Detected Stool Sapovirus (PCR) Not Detected Stl Shigella/EIEC PCR Not Detected St Y.enterocolitica PCR Not Detected Stool Vibrio (PCR) Not Detected Stl Vibrio cholerae PCR Not Detected Stl Norovirus GI/GII PCR Not Detected Microbiology Microbiology Results: Microbiology 04/26/23 20:17 Urine Culture - Final Urine clean catch 04/27/23 02:59 Blood Culture - Preliminary Blood - Venous No growth after 24 hours. 04/27/23 02:14 Blood Culture - Preliminary Blood - Venous No growth after 24 hours. Assessment and Plan (1) Proctocolitis: Status: Acute (2) Diabetes type 2 with atherosclerosis of arteries of extremities: Status: Acute Plan Constanza Mcqueen is a 63 years old woman with past medical history significant for gastroparesis s/p gastric pacemaker admitted with abdominal pain secondary to proctocolitis 1. Proctocolitis -Levaquin/Flagyl (2) -continue NPO pending colonoscopy -further plans based on forthcoming data 2. Diabetes type 2 -acceptable control on current therapies -lispro correctional scale -adjust when taking PO 3. Hypertension -acceptable control on current therapies -adjust as indicated Heparin subcut. Full. Patient requires ongoing hospitalization for IV antibiotics to treat proctocolitis as well as colonoscopy Quality Stroke Does the patient have a stroke diagnosis?: No VTE Prior VTE?: No VTE Risk Level:: Medical - moderate - high VTE Device Contraindication: Treatment Not Indicated VTE Drug Contraindication: N/A - Med Ordered
--- NOTE | 2023-04-28 15:32 | PM.EVENT ---
Event Note Date of Service: 04/28/23 Event Note: Colonoscopy note dictated colitis from 20 to 35 cm with ulceration and erythema. ?ischemic, but location somewhat atypical. Does not look like stercoral colitis with rectal sparing. Biopsies obtained. Rec: Start clears, advance diet as tolerated. d/c abx. f/u biopsy results. Time Spent With Patient Time: Total time managing care of this patient today ____ minutes.
[2023-04-28 15:33] VITALS: BP 135/64; PULSE 75; RESP 16; TEMP 36.6; O2SAT 100
[2023-04-28 15:48] VITALS: BP 139/64; PULSE 72; RESP 16; TEMP 36.6; O2SAT 100
--- NOTE | 2023-04-28 16:01 | HO.WOUND ---
Wound Consult: Initial 63yr old F? [place] [facility] [place] See progress notes and H&P for detailed history.? Wound consult placed for Left Heel wound. Arrival to patient room patient was off unit - will defer assessment to future date and time. Photo uploaded to EMR reviewed and chart review performed - Diabetic foot wound. Will assess early next week should patient remain in patient. Topical recommendations made after chart review and photo review. ? Recommendations: 1. Turn and Reposition every 2 hours and as needed for patient comfort.? Use pillows or wedges to support off loading positions. 2. Off Load all bony prominences with use of pillows and heel boots if needed.? Apply Preventative foams where needed. ? 3. Monitor for incontinence and moisture control, use barrier creams when needed for prevention and treatment. 4. Provide adequate and supplemental nutrition.? 5. Order or Continue low air loss mattress. 6. When applicable maintain blood glucose levels per Providers order. 7. Left Heel - Off Load Pressure with use of pillow or heel protector boot. Cleanse with NS, pat dry. Apply skin prep to periwound, cover wound bed with cut to size Alginate, cover with dry gauze, wrap. change daily.
[2023-04-28 16:05] VITALS: BP 152/70; PULSE 86; RESP 20; TEMP 36.6; O2SAT 97
[2023-04-28 16:13] LABS: Glucose, Whole Blood 124 mg/dL (60-115)
[2023-04-28] MEDS: Heparin Sodium,Porcine 5,000 UNIT/ML VIAL 5000 UNIT SUBCUT (17:02)
[2023-04-28] MEDS: Acetaminophen 325 MG TABLET 975 MG PO (20:01)
[2023-04-28] MEDS: Amitriptyline HCl 50 MG TABLET PO (20:01)
[2023-04-28 20:35] LABS: Glucose, Whole Blood 158 mg/dL (60-115)
[2023-04-28 23:34] VITALS: BP 167/70; PULSE 73; RESP 16; TEMP 36.4; O2SAT 95
[2023-04-28 23:41] VITALS: BP 164/93; PULSE 109; RESP 18; TEMP 36.4; O2SAT 93
[2023-04-29] MEDS: metroNIDAZOLE/NS 500 MG/100 ML PIGGYBACK 100 MG IV (00:26)
--- NOTE | 2023-04-29 00:26 | OP_ITS ---
DATE OF SERVICE: 04/28/2023 SURGEON: Elia Blue MD INDICATIONS: Colitis and diarrhea. PREOPERATIVE DIAGNOSIS: POSTOPERATIVE DIAGNOSIS: PROCEDURE PERFORMED: Colonoscopy to the cecum with biopsy. ESTIMATED BLOOD LOSS: COMPLICATIONS: ANESTHESIA: Monitored anesthesia care. ASSISTANTS: SPECIMENS: DESCRIPTION OF PROCEDURE: A history and physical performed. The risks and benefits of the procedure were explained to the patient. Informed consent was obtained. The patient was placed in the left lateral decubitus position. A digital rectal exam was performed and was found to be normal. The Olympus pediatric video colonoscope was introduced into the rectum and advanced to the cecum. The cecum was identified by transillumination, palpation, and identification of ileocecal valve. Examination was performed. The scope was removed. She tolerated the procedure well and was taken to recovery in stable condition. FINDINGS: The terminal ileum was not examined. There was a large amount of brown stool present that was liquid in the colon, particularly the right colon and transverse colon as the patient did not complete the bowel prep. This was washed and suctioned. Small polyps would have been missed. There was focal colitis between 20 and 35 cm with ulceration and erythema. The mucosa appeared normal otherwise. Biopsies were obtained from the abnormal mucosa and from the right colon. Retroflexed examination showed some small internal hemorrhoids. IMPRESSION: Colitis. RECOMMENDATION: The focal colitis raises a question of ischemic colitis, although location is somewhat atypical. It is also not typical for stercoral colitis with rectal sparing. I would recommend continuing supportive care, advancing her diet, and awaiting biopsy results. GI panel has been negative, and I would recommend discontinuing her antibiotics. She will begin clear liquids today and advance diet as tolerated. MD BRENDA Casper/SONNY / [phone]
[2023-04-29] MEDS: Acetaminophen 325 MG TABLET 975 MG PO ×2 (03:53→15:06)
[2023-04-29] MEDS: HYDROmorphone HCl 1 MG/ML SYRINGE 0.5 MG IVPUSH ×2 (05:03→13:16)
[2023-04-29 06:12] LABS: MANUAL DIFF FLAG NO
[2023-04-29 06:37] LABS: Basophils Percent Auto 0.3 % (0-2); Eosinophils Absolute Auto 0.1 X10*3/uL (0.0-0.4); Eosinophils Percent Auto 1.9 % (0-4); Hematocrit 25.4 % (37.0-47.0); Hemoglobin 8.7 g/dl (12.0-16.0); Imm Gran Abs Auto 0.01 X10*3/uL (0.00-0.03); Imm Gran Pct Auto 0.1 % (0.0-0.4); Mean Corpuscular HGB Conc 34.3 g/dl (31.0-35.0); Mean Corpuscular Hemoglobin 32.1 pg (27.0-33.0); Mean Corpuscular Volume 93.7 fL (80.0-98.0); Mean Platelet Volume 10.1 fL (9.4-12.3); Monocytes Absolute Auto 0.9 X10*3/uL (0.1-1.2); Monocytes Percent Auto 12.2 % (2-11); Neutrophils Percent Auto 57.5 % (45-73); Platelet Count 205 X10*3/uL (160-400); Red Blood Count 2.71 X10*6/uL (4.20-5.50); Red Cell Distribution Width 12.1 % (11.0-16.0)
[2023-04-29 07:10] VITALS: BP 132/60; PULSE 72; RESP 18; TEMP 36.2; O2SAT 95
[2023-04-29 07:17] LABS: Alanine Aminotransferase 9 U/L (0-31); Albumin Level 3.3 g/dL (3.5-5.0); Alkaline Phosphatase 59 U/L (39-117); Anion Gap 11 (12-20); Aspartate Amino Transferase 19 U/L (5-31); Bilirubin Total 0.2 mg/dL (0.0-1.0); Blood Urea Nitrogen 8 mg/dL (9-16); Calcium 8.6 mg/dL (8.4-10.2); Carbon Dioxide 20 mmol/L (22-29); Chloride 112 mmol/L (96-108); Creatinine Clr Calc Pharmacy 83.6; Estimated Glomerular Filt Rate > 60; Glucose Fasting 105 mg/dL (60-99); Potassium 2.9 mmol/L (3.3-5.1); Sodium 140 mmol/L (135-145); Total Protein 6.1 g/dL (6.5-8.0)
[2023-04-29 07:44] LABS: Glucose, Whole Blood 100 mg/dL (60-115)
[2023-04-29] MEDS: Heparin Sodium,Porcine 5,000 UNIT/ML VIAL 5000 UNIT SUBCUT ×3 (08:14→23:56)
[2023-04-29] MEDS: Potassium Chloride/H20 10 MEQ/100 ML PIGGYBACK 100 MEQ IV ×3 (08:16→13:19)
[2023-04-29] MEDS: Losartan Potassium 50 MG TABLET 100 MG PO (08:21)
[2023-04-29] MEDS: Aspirin Enteric Coated 81 MG TABLET.DR PO (08:21)
[2023-04-29] MEDS: Atorvastatin Calcium 80 MG TABLET PO (08:21)
[2023-04-29] MEDS: Gabapentin 100 MG CAPSULE PO ×3 (09:56→19:34)
[2023-04-29] MEDS: Isosorbide Mononitrate 30 MG TAB.ER.24H PO (09:56)
[2023-04-29] MEDS: Omeprazole 20 MG CAPSULE.DR PO ×2 (09:56→16:05)
[2023-04-29] MEDS: 0.9 % Sodium Chloride 1,000 ML 100 ML IVCONT (10:33)
[2023-04-29 11:14] LABS: Glucose, Whole Blood 118 mg/dL (60-115)
--- NOTE | 2023-04-29 11:27 | HO.POSTANES ---
Post Anesthesia Evaluation Post Anesthesia Evaluation Date of Service: 04/29/23 Vital Signs: Vital Signs Temp Pulse Resp BP Pulse Ox O2 Del Method 04/29/23 07:10 97.1 F 72 18 132/60 95 Room Air 04/28/23 23:41 97.5 F 109 H 18 164/93 H 93 Room Air 04/28/23 23:34 97.5 F 73 16 167/70 H 95 Room Air Anesthesia: TIVA Mental Status: Awake Pain Control: Satisfactory Nausea/Vomiting: None Hydration: Adequate Anesthesia-Related Issues: No Anes. Related Issues
--- NOTE | 2023-04-29 13:13 | HO.PM.IMPN ---
Subjective Subjective Date of Service: 04/29/23 Interval History: Continues with diffuse lower abdominal pain.. No acute issues Review of Systems Denies chest pain Denies shortness of breath Denies nausea vomiting diarrhea Denies fever chills Physical Exam Vital Signs: Vital Signs: Last Vital Signs Temp 97.1 F 04/29/23 07:10 Pulse 72 04/29/23 07:10 Resp 18 04/29/23 07:10 BP 132/60 04/29/23 07:10 Pulse Ox 95 04/29/23 07:10 O2 Del Method Room Air 04/29/23 07:10 BMI result Body Mass Index 28.1 Const: Other: No acute distress Resp: Other: Clear to auscultation bilaterally no rales rhonchi or wheezes Cardio: Other: No S4; positive S1-S2; no S3 murmurs rubs or gallops GI: Other: Soft nontender nondistended normoactive bowel sounds Extrem: Other: No edema bilaterally Objective Data Active Medications Acetaminophen (Acetaminophen 325 Mg Tablet) 975 mg PO Q6H PRN PRN Reason: Pain, Mild (Pain Scale 1-3) Last Admin: 04/29/23 03:53 Dose: 975 mg Documented By: MELCHOR Amitriptyline HCl (Amitriptyline Hcl 50 Mg Tablet) 50 mg PO BEDTIME [facility] Last Admin: 04/28/23 20:01 Dose: 50 mg Documented By: MELCHOR Aspirin (Aspirin Enteric Coated 81 Mg Tablet.) 81 mg PO DAILY [facility] Last Admin: 04/29/23 08:21 Dose: 81 mg Documented By: KIMMY Atorvastatin Calcium (Atorvastatin Calcium 80 Mg Tablet) 80 mg PO DAILY [facility] Last Admin: 04/29/23 08:21 Dose: 80 mg Documented By: KIMMY Dextrose (Dextrose 50 % 25 Gm/50 Ml Syringe) 25 gm IVPUSH Q15M PRN; Protocol PRN Reason: per Hypoglycemia Standing Ord. Gabapentin (Gabapentin 100 Mg Capsule) 100 mg PO TID [facility] Last Admin: 04/29/23 09:56 Dose: 100 mg Documented By: KIMMY Glucose (Glucose Gel 15 Gm Gel..Gram.) 15 gm PO Q15M PRN; Protocol PRN Reason: per Hypoglycemia Standing Ord. Heparin Sodium (Porcine) (Heparin Sodium,Porcine 5,000 Unit/Ml Vial) 5,000 unit SUBCUT Q8H [facility] Last Admin: 04/29/23 08:14 Dose: 5,000 unit Documented By: KIMMY Hydromorphone HCl (Hydromorphone Hcl 1 Mg/Ml Syringe) 0.5 mg IVPUSH Q4H PRN; Protocol PRN Reason: Pain, Severe (Pain Scale 7-10) Last Admin: 04/29/23 05:03 Dose: 0.5 mg Documented By: CASTILM Sodium Chloride (Ns) 1,000 mls @ 100 mls/hr IVCONT .Q10H [facility] Last Infusion: 04/29/23 10:33 Dose: 0 mls/hr Documented By: KIMMY Insulin Human Lispro (Insulin Lispro 100 Unit/Ml 3 Ml Vial) 0 unit SUBCUT QIDACHS [facility]; Protocol Last Admin: 04/29/23 12:40 Dose: Not Given Documented By: KIMMY Non-Admin Reason: No Insulin Coverage Isosorbide Mononitrate (Isosorbide Mononitrate 30 Mg Tab.Er.24h) 30 mg PO DAILY [facility]; Protocol Last Admin: 04/29/23 09:56 Dose: 30 mg Documented By: KIMMY Losartan Potassium (Losartan Potassium 50 Mg Tablet) 100 mg PO DAILY [facility]; Protocol Last Admin: 04/29/23 08:21 Dose: 100 mg Documented By: KIMMY Omeprazole (Omeprazole 20 Mg Capsule.Dr) 20 mg PO BID@0630,1630 [facility] Last Admin: 04/29/23 09:56 Dose: 20 mg Documented By: KIMMY Ondansetron HCl (Ondansetron Hcl 4 Mg/2 Ml Vial) 4 mg IVPUSH Q6H PRN PRN Reason: Nausea and Vomiting Last Admin: 04/28/23 10:18 Dose: 4 mg Documented By: MARI Sodium Biphosphate/Sodium Phosphate (Sodium Phosphate,[place]-Dibasic 133 Ml Enema) 133 ml MD ONCE PRN PRN Reason: Pre-Op Surgical Prep Last Admin: 04/28/23 13:30 Dose: 133 ml Documented By: MARI Sodium Chloride (0.9 % Sodium Chloride Flush 3 Ml Syringe) 3 ml IVFLUSH QSHIFT [facility] Last Admin: 04/29/23 08:01 Dose: Not Given Documented By: KIMMY Non-Admin Reason: IV Running Topiramate (Topiramate 100 Mg Tablet) 100 mg PO BID [facility] Last Admin: 04/29/23 11:16 Dose: Not Given Documented By: KIMMY Non-Admin Reason: Med Not Available Labs 04/29/23 05:20 04/29/23 05:20 Labs: Laboratory Results - last 24 hr 04/28/23 04/28/23 04/28/23 10:19 16:10 20:29 MCV MCH MCHC RDW Plt Count MPV Immature Gran % (Auto) Neut % (Auto) Lymph % (Auto) [place] % (Auto) Eos % (Auto) Baso % (Auto) Lymph # (Auto) [place] # (Auto) Eos # (Auto) Baso # (Auto) Abs Immat Gran (auto) Absolute Neuts (auto) Absolute Nucleated RBC Nucleated RBC % (auto) Anion Gap Estim Creat Clear Calc Estimated GFR POC Glucose 124 H 158 H Fasting Glucose Calcium Total Bilirubin AST ALT Alkaline Phosphatase Total Protein Albumin Stl C. cayetanensis PCR Not Detected Stool Rotavirus A PCR Not Detected Stl Adenov F 40/41 PCR Not Detected Stool Astrovirus (PCR) Not Detected Stool Campylobacter PCR Not Detected Stool Cryptosporidium PCR Not Detected Stl Sh Tox Pr E STEC PCR Not Detected Stool E coli O157 PCR Not applicable Stl Enterotoxigenic E PCR Not Detected Stool EPEC (PCR) Not Detected Stool EAEC (PCR) Not Detected Stl E. histolytica PCR Not Detected Stool Giardia Lamblia PCR Not Detected Stl P. shigelloides PCR Not Detected Stool Salmonella PCR Not Detected Stool Sapovirus (PCR) Not Detected Stl Shigella/EIEC PCR Not Detected St Y.enterocolitica PCR Not Detected Stool Vibrio (PCR) Not Detected Stl Vibrio cholerae PCR Not Detected Stl Norovirus GI/GII PCR Not Detected 04/29/23 04/29/23 04/29/23 05:20 07:15 11:03 MCV 93.7 MCH 32.1 MCHC 34.3 RDW 12.1 Plt Count 205 MPV 10.1 Immature Gran % (Auto) 0.1 Neut % (Auto) 57.5 Lymph % (Auto) 28.0 [place] % (Auto) 12.2 H Eos % (Auto) 1.9 Baso % (Auto) 0.3 Lymph # (Auto) 2.0 [place] # (Auto) 0.9 Eos # (Auto) 0.1 Baso # (Auto) 0.0 Abs Immat Gran (auto) 0.01 Absolute Neuts (auto) 4.0 Absolute Nucleated RBC 0.000 Nucleated RBC % (auto) 0.0 Anion Gap 11 L Estim Creat Clear Calc 83.6 Estimated GFR > 60 POC Glucose 100 118 H Fasting Glucose 105 H Calcium 8.6 D Total Bilirubin 0.2 AST 19 ALT 9 Alkaline Phosphatase 59 Total Protein 6.1 L Albumin 3.3 L Stl C. cayetanensis PCR Stool Rotavirus A PCR Stl Adenov F 40/41 PCR Stool Astrovirus (PCR) Stool Campylobacter PCR Stool Cryptosporidium PCR Stl Sh Tox Pr E STEC PCR Stool E coli O157 PCR Stl Enterotoxigenic E PCR Stool EPEC (PCR) Stool EAEC (PCR) Stl E. histolytica PCR Stool Giardia Lamblia PCR Stl P. shigelloides PCR Stool Salmonella PCR Stool Sapovirus (PCR) Stl Shigella/EIEC PCR St Y.enterocolitica PCR Stool Vibrio (PCR) Stl Vibrio cholerae PCR Stl Norovirus GI/GII PCR Microbiology Microbiology Results: Microbiology 04/27/23 02:59 Blood Culture - Preliminary Blood - Venous No growth after 48 hours. 04/27/23 02:14 Blood Culture - Preliminary Blood - Venous No growth after 48 hours. 04/26/23 20:17 Urine Culture - Final Urine clean catch Assessment and Plan (1) Colitis: Status: Acute Plan Constanza Mcqueen is a 63 years old woman with past medical history significant for gastroparesis s/p gastric pacemaker admitted with abdominal pain secondary to proctocolitis 1. Proctocolitis -colonoscopy: Colitis from 20-35 cm with ulceration and erythema -antibiotics DC as per GI recommendation -will advance diet as tolerated -further plans based on forthcoming data 2. Diabetes type 2 -acceptable control on current therapies -lispro correctional scale -adjust when taking PO 3. Hypertension -acceptable control on current therapies -adjust as indicated Heparin subcut. Full. Patient requires ongoing hospitalization for IV analgesia Quality Stroke Does the patient have a stroke diagnosis?: No VTE Prior VTE?: No VTE Risk Level:: Medical - moderate - high VTE Device Contraindication: Treatment Not Indicated VTE Drug Contraindication: N/A - Med Ordered
[2023-04-29 14:51] VITALS: O2SAT 96
[2023-04-29 15:15] VITALS: BP 127/59; PULSE 68; RESP 16; TEMP 36.5; O2SAT 96
[2023-04-29] MEDS: oxyCODONE HCl Immed Release 5 MG TABLET PO (16:05)
[2023-04-29 16:34] LABS: Glucose, Whole Blood 137 mg/dL (60-115)
[2023-04-29 19:22] VITALS: BP 122/60; PULSE 68; RESP 18; TEMP 36.5; O2SAT 96
[2023-04-29] MEDS: Amitriptyline HCl 50 MG TABLET PO (19:34)
[2023-04-29] MEDS: Topiramate 100 MG TABLET PO (19:34)
[2023-04-29 20:27] LABS: Glucose, Whole Blood 152 mg/dL (60-115)
[2023-04-29 23:31] VITALS: BP 139/63; PULSE 64; RESP 16; TEMP 36.8; O2SAT 95
[2023-04-30] MEDS: 0.9 % Sodium Chloride 1,000 ML 100 ML IVCONT (02:20)
[2023-04-30] MEDS: Acetaminophen 325 MG TABLET 975 MG PO ×3 (03:49→17:50)
[2023-04-30] MEDS: Omeprazole 20 MG CAPSULE.DR PO ×2 (05:46→15:30)
[2023-04-30 06:01] LABS: MANUAL DIFF FLAG NO
[2023-04-30 06:26] LABS: Basophils Percent Auto 0.3 % (0-2); Eosinophils Absolute Auto 0.2 X10*3/uL (0.0-0.4); Eosinophils Percent Auto 2.7 % (0-4); Hemoglobin 8.7 g/dl (12.0-16.0); Imm Gran Abs Auto 0.03 X10*3/uL (0.00-0.03); Imm Gran Pct Auto 0.4 % (0.0-0.4); Lymphocytes Absolute Auto 2.3 X10*3/uL (1.2-4.9); Lymphocytes Percent Auto 30.7 % (20-40); Mean Corpuscular HGB Conc 34.8 g/dl (31.0-35.0); Mean Corpuscular Hemoglobin 33.2 pg (27.0-33.0); Mean Corpuscular Volume 95.4 fL (80.0-98.0); Mean Platelet Volume 10.5 fL (9.4-12.3); Monocytes Absolute Auto 0.9 X10*3/uL (0.1-1.2); Monocytes Percent Auto 11.8 % (2-11); Neutrophils Percent Auto 54.1 % (45-73); Platelet Count 191 X10*3/uL (160-400); Red Blood Count 2.62 X10*6/uL (4.20-5.50); Red Cell Distribution Width 12.5 % (11.0-16.0); White Blood Count 7.5 X10*3/uL (4.8-10.8)
[2023-04-30 06:40] LABS: Alanine Aminotransferase 13 U/L (0-31); Albumin Level 3.1 g/dL (3.5-5.0); Alkaline Phosphatase 54 U/L (39-117); Anion Gap 12 (12-20); Aspartate Amino Transferase 27 U/L (5-31); Bilirubin Total 0.2 mg/dL (0.0-1.0); Blood Urea Nitrogen 6 mg/dL (9-16); Calcium 8.7 mg/dL (8.4-10.2); Carbon Dioxide 20 mmol/L (22-29); Chloride 115 mmol/L (96-108); Creatinine Clr Calc Pharmacy 90.2; Estimated Glomerular Filt Rate > 60; Glucose Fasting 113 mg/dL (60-99); Potassium 3.3 mmol/L (3.3-5.1); Sodium 144 mmol/L (135-145); Total Protein 5.8 g/dL (6.5-8.0)
[2023-04-30 07:40] VITALS: BP 174/74; PULSE 77; RESP 18; TEMP 36.2; O2SAT 97
[2023-04-30 07:48] LABS: Glucose, Whole Blood 122 mg/dL (60-115)
[2023-04-30] MEDS: Heparin Sodium,Porcine 5,000 UNIT/ML VIAL 5000 UNIT SUBCUT ×3 (08:43→23:04)
[2023-04-30] MEDS: Isosorbide Mononitrate 30 MG TAB.ER.24H PO (08:44)
[2023-04-30] MEDS: Losartan Potassium 50 MG TABLET 100 MG PO (08:44)
[2023-04-30] MEDS: Aspirin Enteric Coated 81 MG TABLET.DR PO (08:45)
[2023-04-30] MEDS: Topiramate 100 MG TABLET PO ×2 (08:45→20:09)
[2023-04-30] MEDS: Atorvastatin Calcium 80 MG TABLET PO (08:45)
[2023-04-30] MEDS: Gabapentin 100 MG CAPSULE PO ×3 (08:45→20:09)
[2023-04-30] MEDS: oxyCODONE HCl Immed Release 5 MG TABLET PO ×3 (11:06→20:09)
[2023-04-30 11:32] LABS: Glucose, Whole Blood 172 mg/dL (60-115)
[2023-04-30 13:34] VITALS: O2SAT 97
--- NOTE | 2023-04-30 13:34 | HO.PM.IMPN ---
Subjective Subjective Date of Service: 04/30/23 Interval History: Pain control adequate on current regimen Review of Systems Denies chest pain Denies shortness of breath Denies nausea vomiting diarrhea Denies fever chills Physical Exam Vital Signs: Vital Signs: Last Vital Signs Temp 97.2 F 04/30/23 07:40 Pulse 77 04/30/23 07:40 Resp 18 04/30/23 07:40 BP 174/74 H 04/30/23 07:40 Pulse Ox 97 04/30/23 07:40 O2 Del Method Room Air 04/30/23 07:40 BMI result Body Mass Index 28.1 Const: Other: No acute distress Resp: Other: Clear to auscultation bilaterally no rales rhonchi or wheezes Cardio: Other: No S4; positive S1-S2; no S3 murmurs rubs or gallops GI: Other: Soft nontender nondistended normoactive bowel sounds Extrem: Other: No edema bilaterally Objective Data Active Medications Acetaminophen (Acetaminophen 325 Mg Tablet) 975 mg PO Q6H PRN PRN Reason: Pain, Mild (Pain Scale 1-3) Last Admin: 04/30/23 11:00 Dose: 975 mg Documented By: KIMMY Amitriptyline HCl (Amitriptyline Hcl 50 Mg Tablet) 50 mg PO BEDTIME [facility] Last Admin: 04/29/23 19:34 Dose: 50 mg Documented By: MELCHOR Aspirin (Aspirin Enteric Coated 81 Mg Tablet.) 81 mg PO DAILY [facility] Last Admin: 04/30/23 08:45 Dose: 81 mg Documented By: KIMMY Atorvastatin Calcium (Atorvastatin Calcium 80 Mg Tablet) 80 mg PO DAILY [facility] Last Admin: 04/30/23 08:45 Dose: 80 mg Documented By: KIMMY Dextrose (Dextrose 50 % 25 Gm/50 Ml Syringe) 25 gm IVPUSH Q15M PRN; Protocol PRN Reason: per Hypoglycemia Standing Ord. Gabapentin (Gabapentin 100 Mg Capsule) 100 mg PO TID [facility] Last Admin: 04/30/23 08:45 Dose: 100 mg Documented By: KIMMY Glucose (Glucose Gel 15 Gm Gel..Gram.) 15 gm PO Q15M PRN; Protocol PRN Reason: per Hypoglycemia Standing Ord. Heparin Sodium (Porcine) (Heparin Sodium,Porcine 5,000 Unit/Ml Vial) 5,000 unit SUBCUT Q8H [facility] Last Admin: 04/30/23 08:43 Dose: 5,000 unit Documented By: KIMMY Hydromorphone HCl (Hydromorphone Hcl 1 Mg/Ml Syringe) 0.5 mg IVPUSH Q4H PRN; Protocol PRN Reason: Pain, Severe (Pain Scale 7-10) Last Admin: 04/29/23 13:16 Dose: 0.5 mg Documented By: KIMMY Insulin Human Lispro (Insulin Lispro 100 Unit/Ml 3 Ml Vial) 0 unit SUBCUT QIDACHS [facility]; Protocol Last Admin: 04/30/23 12:21 Dose: Not Given Documented By: KIMMY Non-Admin Reason: Patient Refused Isosorbide Mononitrate (Isosorbide Mononitrate 30 Mg Tab.Er.24h) 30 mg PO DAILY [facility]; Protocol Last Admin: 04/30/23 08:44 Dose: 30 mg Documented By: KIMMY Losartan Potassium (Losartan Potassium 50 Mg Tablet) 100 mg PO DAILY [facility]; Protocol Last Admin: 04/30/23 08:44 Dose: 100 mg Documented By: KIMMY Omeprazole (Omeprazole 20 Mg Capsule.Dr) 20 mg PO BID@0630,1630 [facility] Last Admin: 04/30/23 05:46 Dose: 20 mg Documented By: MELCHOR Ondansetron HCl (Ondansetron Hcl 4 Mg/2 Ml Vial) 4 mg IVPUSH Q6H PRN PRN Reason: Nausea and Vomiting Last Admin: 04/28/23 10:18 Dose: 4 mg Documented By: MARI Oxycodone HCl (Oxycodone Hcl Immed Release 5 Mg Tablet) 5 mg PO Q4H PRN PRN Reason: Pain, Moderate(Pain Scale 4-6) Last Admin: 04/30/23 11:06 Dose: 5 mg Documented By: KIMMY Sodium Biphosphate/Sodium Phosphate (Sodium Phosphate,[place]-Dibasic 133 Ml Enema) 133 ml OR ONCE PRN PRN Reason: Pre-Op Surgical Prep Last Admin: 04/28/23 13:30 Dose: 133 ml Documented By: MARI Sodium Chloride (0.9 % Sodium Chloride Flush 3 Ml Syringe) [facility] Last Admin: 04/30/23 07:51 Dose: Not Given Documented By: KIMMY Non-Admin Reason: IV Running Topiramate (Topiramate 100 Mg Tablet) 100 mg PO BID [facility] Last Admin: 04/30/23 08:45 Dose: 100 mg Documented By: KIMMY Labs 04/30/23 05:27 04/30/23 05:27 Labs: Laboratory Results - last 24 hr 04/29/23 04/29/23 04/30/23 16:09 19:27 05:27 MCV 95.4 MCH 33.2 H MCHC 34.8 RDW 12.5 Plt Count 191 MPV 10.5 Immature Gran % (Auto) 0.4 Neut % (Auto) 54.1 Lymph % (Auto) 30.7 [place] % (Auto) 11.8 H Eos % (Auto) 2.7 Baso % (Auto) 0.3 Lymph # (Auto) 2.3 [place] # (Auto) 0.9 Eos # (Auto) 0.2 Baso # (Auto) 0.0 Abs Immat Gran (auto) 0.03 Absolute Neuts (auto) 4.0 Absolute Nucleated RBC 0.000 Nucleated RBC % (auto) 0.0 Anion Gap 12 Estim Creat Clear Calc 90.2 Estimated GFR > 60 POC Glucose 137 H 152 H Fasting Glucose 113 H Calcium 8.7 Total Bilirubin 0.2 AST 27 ALT 13 Alkaline Phosphatase 54 Total Protein 5.8 L Albumin 3.1 L 04/30/23 04/30/23 07:43 11:28 MCV MCH MCHC RDW Plt Count MPV Immature Gran % (Auto) Neut % (Auto) Lymph % (Auto) [place] % (Auto) Eos % (Auto) Baso % (Auto) Lymph # (Auto) [place] # (Auto) Eos # (Auto) Baso # (Auto) Abs Immat Gran (auto) Absolute Neuts (auto) Absolute Nucleated RBC Nucleated RBC % (auto) Anion Gap Estim Creat Clear Calc Estimated GFR POC Glucose 122 H 172 H Fasting Glucose Calcium Total Bilirubin AST ALT Alkaline Phosphatase Total Protein Albumin Assessment and Plan (1) Proctocolitis: Status: Acute Plan Constanza Mcqueen is a 63 years old woman with past medical history significant for gastroparesis s/p gastric pacemaker admitted with abdominal pain secondary to proctocolitis 1. Proctocolitis -colonoscopy: Colitis from 20-35 cm with ulceration and erythema -antibiotics DC as per GI recommendation -advance diet -further plans based on forthcoming data 2. Diabetes type 2 -acceptable control on current therapies -lispro correctional scale -adjust when taking PO 3. Hypertension -acceptable control on current therapies -adjust as indicated Heparin subcut. Full. Patient requires ongoing hospitalization for IV analgesia Quality Stroke Does the patient have a stroke diagnosis?: No VTE Prior VTE?: No VTE Risk Level:: Medical - moderate - high VTE Device Contraindication: Treatment Not Indicated VTE Drug Contraindication: N/A - Med Ordered
[2023-04-30 15:15] VITALS: BP 150/69; PULSE 80; RESP 16; TEMP 36.7; O2SAT 98
[2023-04-30] MEDS: 0.9 % Sodium Chloride Flush 3 ML SYRINGE IVFLUSH ×2 (15:30→20:09)
[2023-04-30 16:28] LABS: Glucose, Whole Blood 171 mg/dL (60-115)
[2023-04-30] MEDS: Insulin Lispro 100 UNIT/ML 3 ML VIAL SUBCUT (17:49)
[2023-04-30] MEDS: Amitriptyline HCl 50 MG TABLET PO (20:09)
[2023-04-30 20:40] LABS: Glucose, Whole Blood 129 mg/dL (60-115)
[2023-04-30 22:44] LABS: CDiff Gene PCR NEGATIVE (Negative)
--- NOTE | 2023-04-30 22:50 | PC.NURSE ---
Pt complaining of multiple episodes of loose stools throughout the day and evening, MD Dr Aparicio made aware, STAT C.diff PCR ordered, Stool sample colletcted, results are negative, Imodium ordered and Pt medicated per MAY, results pending, Pt resting in bed with call alvarado in reach, respirations even and unlabored.
[2023-04-30] MEDS: Loperamide HCl 2 MG CAPSULE PO (22:55)
[2023-04-30 23:16] VITALS: BP 163/71; PULSE 80; RESP 18; TEMP 36.6; O2SAT 98
[2023-05-01] MEDS: Omeprazole 20 MG CAPSULE.DR PO (05:21)
[2023-05-01] MEDS: oxyCODONE HCl Immed Release 5 MG TABLET PO (05:24)
[2023-05-01 07:59] VITALS: BP 165/72; PULSE 94; RESP 15; TEMP 36.1; O2SAT 98
[2023-05-01 08:02] LABS: Glucose, Whole Blood 142 mg/dL (60-115)
[2023-05-01] MEDS: Atorvastatin Calcium 80 MG TABLET PO (08:13)
[2023-05-01] MEDS: Heparin Sodium,Porcine 5,000 UNIT/ML VIAL 5000 UNIT SUBCUT (08:13)
[2023-05-01] MEDS: Topiramate 100 MG TABLET PO (08:13)
[2023-05-01] MEDS: Acetaminophen 325 MG TABLET 975 MG PO (08:13)
[2023-05-01] MEDS: Losartan Potassium 50 MG TABLET 100 MG PO (08:13)
[2023-05-01] MEDS: Isosorbide Mononitrate 30 MG TAB.ER.24H PO (08:13)
[2023-05-01] MEDS: Gabapentin 100 MG CAPSULE PO (08:13)
[2023-05-01] MEDS: Aspirin Enteric Coated 81 MG TABLET.DR PO (08:13)
[2023-05-01] MEDS: 0.9 % Sodium Chloride Flush 3 ML SYRINGE IVFLUSH (08:14)
[2023-05-01 09:44] LABS: Hematocrit 25.4 % (37.0-47.0); Hemoglobin 8.7 g/dl (12.0-16.0); Mean Corpuscular HGB Conc 34.3 g/dl (31.0-35.0); Mean Corpuscular Hemoglobin 32.1 pg (27.0-33.0); Mean Corpuscular Volume 93.7 fL (80.0-98.0); Mean Platelet Volume 10.4 fL (9.4-12.3); Platelet Count 217 X10*3/uL (160-400); Red Blood Count 2.71 X10*6/uL (4.20-5.50); Red Cell Distribution Width 12.6 % (11.0-16.0); White Blood Count 9.5 X10*3/uL (4.8-10.8)
[2023-05-01 10:05] LABS: Anion Gap 12 (12-20); Blood Urea Nitrogen 3 mg/dL (9-16); Carbon Dioxide 21 mmol/L (22-29); Chloride 112 mmol/L (96-108); Creatinine Clr Calc Pharmacy 88.8; Estimated Glomerular Filt Rate > 60; Glucose Random 169 mg/dL (60-115); Potassium 3.6 mmol/L (3.3-5.1); Sodium 141 mmol/L (135-145)
--- NOTE | 2023-05-01 10:25 | P.F2F_ITS ---
Service Date Service Date: 05/01/23 Encounter Date of encounter: 05/01/23 Reasons for Services Signs and symptoms assessed: chronic heel wound Reason for penitentiary: wound care MD Overseeing Care: Rafiq Zhong Homebound: Leaving the home is medically contraindicated at this time without the asist of a device and/or another person due th the listed conditions above and below. Reason homebound: weakness related to hospital stay Homebound supporting statement: Off Load Pressure with use of pillow or heel protector boot. Cleanse with NS, pat dry. Apply skin prep to periwound, cover wound bed with cut to size Alginate, cover with dry gauze, wrap. change daily. Certification: Based on the above findings, I certify that this patient is confined to the home and needs intermittent penitentiary care, physical therapy and/or speech therapy, or continues to need occupational therapy. The patient is under my care, and I have initiated the establishment of the plan of care. The patient will be followed by a physician who will periodically review the plan of care. Time Spent With Patient Time: Total time managing care of this patient today ____ minutes.
--- NOTE | 2023-05-01 10:36 | P.DS_ITS ---
DS: Providers Provider Date of Service: 05/01/23 Date of admission: 04/27/23 00:36 Date of discharge: 05/01/23 Primary care physician: Rafiq Zhong MD Consults: 04/27/23 00:40 Consult to Wound Care Routine Reason for consultation: chronic left heel wound 04/27/23 05:27 Consult to Gastroenterology Routine Consulting Provider: Elia Blue Reason for consultation: Proctocolitis Has provider been notified: No DS: Diagnosis Discharge Diagnosis (1) Proctocolitis: Status: Acute (2) Ischemic colitis: Status: Acute (3) Diabetic ulcer of heel: Status: Acute DS: Summary Hospital Course Hospital Course: From the history and physical by the admitting hospitalist, Lanette Hay, 04/27/23: Constanza Mcqueen is a 63 years old woman with past medical history significant for gastroparesis s/p gastric pacemaker, type 2 diabetes mellitus, cholelithiasis, essential hypertension, anxiety, chronic left heel ulcer f/u by vascular surgery and right left BKA presents to the emergency department complaining of 5 day history of generalized abdominal pain associated with poor appetite. She also reported nausea but denied events of vomiting She also has been having episode of nonbloody diarrhea, however this stopped 3 days ago. Now she is having mucus discharge and leaking from her rectum. She denies fever or chills. She denied any headache, palpitations or dizziness. She denied any chest pain, shortness on breath or cough. She denied tobacco smoking, alcohol abuse or illicit drug use. She denied recent use of antibiotics, contact with sick people or recent travel. In the ED, she was found to have normal vital signs except for slight hypertension. Her last blood pressure is 125/44. Blood workup including CBC and CMP are basically unremarkable. Lipase is normal. There is chronic stable anemia. Urinalysis showed elevated WBC and leukocyte yesterday. CRP is el evated, 2.71. Viral testing for COVID-19 and influenza is negative. Abdomen pelvis CT scan findings suggestive of proctocolitis with slightly dilatation of the proximal colon suggestive of mild secondary obstruction. ED tx: NS 1 L bolus, Tylenol 975 mg p.o., Phenergan 12.5 mg IV. She was admitted to the medical-surgical floor and initially treated with antibiotics. Gastroenterology was consulted. She underwent colonoscopy 04/29/23, showing focal colitis between 20-35 cm with ulceration and erythema; this area was biopsy. The focal colitis raised the question of ischemic colitis. GI panel was negative. Antibiotics were discontinued. Diet was advanced. She will follow up with Dr Elia Blue for biopsy results. She was noted to have a left heel diabetic ulcer. Wound care was consulted and recommended: 1. Turn and Reposition every 2 hours and as needed for patient comfort.? Use pillows or wedges to support off loading positions. 2. Off Load all bony prominences with use of pillows and heel boots if needed.? Apply Preventative foams where needed. ? 3. Monitor for incontinence and moisture control, use barrier creams when needed for prevention and treatment. 4. Provide adequate and supplemental nutrition.? 5. Order or Continue low air loss mattress. 6. When applicable maintain blood glucose levels per Providers order. 7. Left Heel - Off Load Pressure with use of pillow or heel protector boot. Cleanse with NS, pat dry. Apply skin prep to periwound, cover wound bed with cut to size Alginate, cover with dry gauze, wrap. change daily. VNA services were arranged and she will follow up with the [facility]. Time Attestation Total time managing care of this patient today: 35 mintues. Discharge coordination time: Greater than 30 minutes Quality: Safe Use of Opioids Does Pt have an Active Cancer Diagnosis on the Problem List?: No Quality: Stroke Does the patient have a stroke diagnosis?: No Physical Exam Vital Signs: Vital Signs: Last Vital Signs Temp 97.0 F 05/01/23 07:59 Pulse 94 05/01/23 07:59 Resp 15 05/01/23 07:59 BP 165/72 H 05/01/23 07:59 Pulse Ox 98 05/01/23 07:59 O2 Del Method Room Air 05/01/23 07:59 BMI result Body Mass Index 28.1 Gen: in no acute distress HEENT: sclera anicteric, moist mucus membranes Neck: supple Lungs: clear to auscultation bilaterally Heart: regular rate and rhythm, no murmurs Abd: soft, non-tender, non-distended Ext: R BKA, L heel ulcer Skin: warm/well-perfused Neuro: alert and oriented x3, no focal findings Psych: appropriate affect DS: Data Data Completed and Pending Completed studies during hospitalization [Text1]: Laboratory Results WBC 9.5 X10*3/uL (4.8-10.8) 05/01/23 09:22 RBC 2.71 X10*6/uL (4.20-5.50) L 05/01/23 09:22 Hgb 8.7 g/dl (12.0-16.0) L 05/01/23 09:22 Hct 25.4 % (37.0-47.0) L 05/01/23 09:22 MCV 93.7 fL (80.0-98.0) 05/01/23 09:22 MCH 32.1 pg (27.0-33.0) 05/01/23 09: MCHC 34.3 g/dl (31.0-35.0) 05/01/23 09:22 RDW 12.6 % (11.0-16.0) 05/01/23 09:22 Plt Count 217 X10*3/uL (160-400) 05/01/23 09:22 MPV 10.4 fL (9.4-12.3) 05/01/23 09:22 Immature Gran % (Auto) 0.4 % (0.0-0.4) 04/30/23 05:27 Neut % (Auto) 54.1 % (45-73) 04/30/23 05:27 Lymph % (Auto) 30.7 % (20-40) 04/30/23 05:27 O[place]Brien % (Auto) 11.8 % (2-11) H 04/30/23 05:27 Eos % (Auto) 2.7 % (0-4) 04/30/23 05:27 Baso % (Auto) 0.3 % (0-2) 04/30/23 05:27 Lymph # (Auto) 2.3 X10*3/uL (1.2-4.9) 04/30/23 05:27 O'Brien # (Auto) 0.9 X10*3/uL (0.1-1.2) 04/30/23 05:27 Eos # (Auto) 0.2 X10*3/uL (0.0-0.4) 04/30/23 05:27 Baso # (Auto) 0.0 X10*3/uL (0.0-0.2) 04/30/23 05:27 Abs Immat Gran (auto) 0.03 X10*3/uL (0.00-0.03) 04/30/23 05:27 Absolute Neuts (auto) 4.0 x10*3/uL (2.0-8.3) 04/30/23 05:27 Absolute Nucleated RBC 0.000 X10*3/uL (0.0-0.012) 05/01/23 09:22 Nucleated RBC % (auto) 0.0 /100WBC (0.0-0.2) 05/01/23 09:22 ESR 44 MM/HR (0-20) H 04/26/23 16:56 Sodium 141 mmol/L (135-145) 05/01/23 09:22 Potassium 3.6 mmol/L (3.3-5.1) 05/01/23 09:22 Chloride 112 mmol/L (96-108) H 05/01/23 09:22 Carbon Dioxide 21 mmol/L (22-29) L 05/01/23 09:22 Anion Gap 12 (12-20) 05/01/23 09:22 BUN 3 mg/dL (9-16) L 05/01/23 09:22 Creatinine 0.64 mg/dL (0.5-1.4) 05/01/23 09:22 Estim Creat Clear Calc 88.8 05/01/23 09:22 Estimated GFR > 60 05/01/23 09:22 POC Glucose 142 mg/dL (60-115) H 05/01/23 07:25 Random Glucose 169 mg/dL (60-115) H 05/01/23 09:22 Fasting Glucose 113 mg/dL (60-99) H 04/30/23 05:27 Calcium 9.0 mg/dL (8.4-10.2) 05/01/23 09:22 Magnesium 1.9 mg/dL (1.6-2.6) 04/26/23 16:52 Total Bilirubin 0.2 mg/dL (0.0-1.0) 04/30/23 05:27 AST 27 U/L (5-31) 04/30/23 05:27 ALT 13 U/L (0-31) 04/30/23 05:27 Alkaline Phosphatase 54 U/L (39-117) 04/30/23 05:27 C-Reactive Protein 2.70 mg/dL (< or = 0.50) H 05/01/23 09:22 Total Protein 5.8 g/dL (6.5-8.0) L 04/30/23 05:27 Albumin 3.1 g/dL (3.5-5.0) L 04/30/23 05:27 Lipase 11 U/L (8-78) 04/26/23 16:52 Urine Color Yellow 04/26/23 20:06 Urine Appearance Clear 04/26/23 20:06 Urine pH 7.0 (5.0-9.0) 04/26/23 20:06 Ur Specific [place] 1.010 (1.005-1.025) 04/26/23 20:06 Urine Protein Negative mg/dL (Neg-Trace) 04/26/23 20:06 Urine Glucose (UA) Negative mg/dL (Negative) 04/26/23 20:06 Urine Ketones Negative mg/dL (Negative) 04/26/23 20:06 Urine Blood Negative (Negative) 04/26/23 20:06 Urine Nitrite Negative (Negative) 04/26/23 20:06 Ur Leukocyte Esterase Trace (Negative) H 04/26/23 20:06 Urine RBC 0-2 /HPF (0-2) 04/26/23 20:06 Urine WBC 6-10 /HPF (0-5) H 04/26/23 20:06 Ur Squamous Epith Cells 0-2 /HPF (0-2) 04/26/23 20:06 Urine Bacteria None Seen (None Seen) 04/26/23 20:06 Hyaline Casts 0-2 /LPF (0-2) 04/26/23 20:06 Stool Leukocytes, Qual NEGATIVE (NEGATIVE) 04/28/23 10:19 Stl C. cayetanensis PCR Not Detected (Not Detect.) 04/28/23 10:19 Stool Rotavirus A PCR Not Detected (Not Detect.) 04/28/23 10:19 Stl Adenov F 40/41 PCR Not Detected (Not Detect.) 04/28/23 10:19 Stool Astrovirus (PCR) Not Detected (Not Detect.) 04/28/23 10:19 Stool Campylobacter PCR Not Detected (Not Detect.) 04/28/23 10:19 Stool Cryptosporidium PCR Not Detected (Not Detect.) 04/28/23 10:19 Stl Sh Tox Pr E STEC PCR Not Detected (Not Detect.) 04/28/23 10:19 Stool E coli O157 PCR Not applicable (Not Detect.) 04/28/23 10:19 Stl Enterotoxigenic E PCR Not Detected (Not Detect.) 04/28/23 10:19 Stool EPEC (PCR) Not Detected (Not Detect.) 04/28/23 10:19 Stool EAEC (PCR) Not Detected (Not Detect.) 04/28/23 10:19 Stl E. histolytica PCR Not Detected (Not Detect.) 04/28/23 10:19 Stool Giardia Lamblia PCR Not Detected (Not Detect.) 04/28/23 10:19 Stl P. shigelloides PCR Not Detected (Not Detect.) 04/28/23 10:19 Stool Salmonella PCR Not Detected (Not Detect.) 04/28/23 10:19 Stool Sapovirus (PCR) Not Detected (Not Detect.) 04/28/23 10:19 Stl Shigella/EIEC PCR Not Detected (Not Detect.) 04/28/23 10:19 St Y.enterocolitica PCR Not Detected (Not Detect.) 04/28/23 10:19 Stool Vibrio (PCR) Not Detected (Not Detect.) 04/28/23 10:19 Stl Vibrio cholerae PCR Not Detected (Not Detect.) 04/28/23 10:19 Stl Norovirus GI/GII PCR Not Detected (Not Detect.) 04/28/23 10:19 C. difficile Tox B Gene NEGATIVE (Negative) 04/30/23 Unknown COVID-19 (TA) Negative (Negative) 04/26/23 16:52 COVID-19 Clin Com See Note 04/26/23 16:52 Influenza Type A (TIMOTHY) Negative (Negative) 04/26/23 16:52 Influenza Type B (TIMOTHY) Negative (Negative) 04/26/23 16:52 Influenza A & B Note See Note 04/26/23 16:52 Impressions Abdomen/Pelvis CT 04/26/23 16:36 IMPRESSION: Wall thickening of the sigmoid colon and rectum suggestive of proctocolitis. The more proximal colon appears slightly dilated and filled with stool suggestive of mild secondary obstruction. New clustered peribronchial nodules in the lower lobes probably representing tree-in-bud appearance or airways disease. New isolated pulmonary nodules in the lingula and right middle lobe. Infectious, inflammatory and neoplastic processes should be considered. According to the UPDATED 2017 Fleischner Society recommendations, the advised follow-up imaging for less than 6 mm solid nodule: Low risk, no CT follow-up and high risk, optional CT follow-up in one year recommended Fleischner guidelines were followed. Pending studies at discharge: Pending at discharge 04/28/23 15:32 Surgical [PTH] Routine Discharge Plan Discharge Anticipated Discharge Date/Time: 05/01/23 10:31 Patient Disposition: Home Health Service Discharge Diagnosis: Colitis, likely ischemic Chronic heel ulcer Referrals: [facility] Wound Care Management [Provider Group] - 1 Week Elia Blue MD [Physician] - 2 Weeks Rafiq Zhong MD [Primary Care Provider] - 1 Week Discharge Medications: New oxycodone 5 mg Tablet 5 mg PO Q8H PRN (Reason: pain (scale score 7-10)) Qty: 9 0RF Rx Instructions: Partial Fill upon patient request. Continued isosorbide mononitrate 30 mg Tablet Extended Release 24 Hr 30 mg PO DAILY omeprazole 20 mg Capsule,Delayed Release(Dr/Ec) 20 mg PO BID@0630,1630 topiramate 100 mg Tablet 100 mg PO BID nitroglycerin [Nitrostat] 0.4 mg Tablet, Sublingual 0.4 mg SUBLINGUAL Q5M PRN (Reason: Chest Pain) Rx Instructions: do not exceed 3 doses per episode ergocalciferol (vitamin D2) 1,250 mcg (50,000 unit) Capsule 1,250 mcg PO RIVER insulin glargine [Lantus Solostar U-100 Insulin] 100 unit/mL (3 mL) Insulin Pen 40 unit SUBCUT DAILY amitriptyline 50 mg tablet 50 mg PO BEDTIME aspirin 81 mg tablet,delayed release (DR/EC) 81 mg PO DAILY atorvastatin 80 mg tablet 80 mg PO BEDTIME losartan 100 mg tablet 100 mg PO BEDTIME metoprolol succinate 100 mg tablet extended release 24 hr 100 mg PO BID amlodipine 5 mg tablet 10 mg PO DAILY gabapentin 100 mg capsule 100 mg PO TID Discharge Orders: Discharge Order (Routine); Ordered 05/01/23 Ordered By: Tank Argueta Diet: Diabetic diet Activity on Discharge: As tolerated Stand Alone Forms: Patient Portal Discharge page Care Plan Goals: resolution of colitis cure of heel wound Health Concerns: Colitis, likely ischemic Chronic heel ulcer Plan of Treatment: continue diet as tolerated use acetaminophen for mild-moderate pain, oxycodone for severe pain follow up with Dr Blue [Gastroenterology] in 2 weeks for biopsy results wound care: 1. Turn and Reposition every 2 hours and as needed for patient comfort.? Use pillows or wedges to support off loading positions. 2. Off Load all bony prominences with use of pillows and heel boots if needed.? Apply Preventative foams where needed. ? 3. Monitor for incontinence and moisture control, use barrier creams when needed for prevention and treatment. 4. Provide adequate and supplemental nutrition.? 5. Order or Continue low air loss mattress. 6. When applicable maintain blood glucose levels per Providers order. 7. Left Heel - Off Load Pressure with use of pillow or heel protector boot. Cleanse with NS, pat dry. Apply skin prep to periwound, cover wound bed with cut to size Alginate, cover with dry gauze, wrap. change daily. Please follow up with your primary care doctor within 1 week. Return to the hospital if you experience recurrent or worsening symptoms. Assessment: See Discharge Summary.
[2023-05-01 11:20] LABS: Glucose, Whole Blood 204 mg/dL (60-115)
[2023-05-01] MEDS: Insulin Lispro 100 UNIT/ML 3 ML VIAL SUBCUT (11:40)
--- NOTE | 2023-05-01 13:28 | MHC.CM.PN ---
Patient is discharged to home today with [facility]. All discharge info including Face 2 Face has been sent to [facility]. Patients DTR/HCP/ACCOUNTS MANAGER/Codie will provide transport home.
== END 2023-05-01 13:39 | disposition home health service (06) | DRG 246 ==
LOC: HO.ED 23:53 → HO.EDOVER 04-27 00:43 → HO.S3 04-27 08:26
PROVIDERS: Hospitalist; Internal Medicine Gastroenterology; Physician Assistant Medical; Admitting Provider Internal Medicine; Emergency Provider Emergency Medicine; PCP Internal Medicine; Visit Provider Family Medicine
PROC: 0DJD8ZZ Inspection of Lower Intestinal Tract, Via Natural or Artificial Opening Endoscopic (ICD-10-PCS; CPT 45378; principal; 2023-04-28 15:00)
DX: K55.9 Vascular disorder of intestine, unspecified (principal); E11.40 Type 2 diabetes mellitus with diabetic neuropathy, unspecified; E11.621 Type 2 diabetes mellitus with foot ulcer; I69.351 Hemiplegia and hemiparesis following cerebral infarction affecting right dominant side; L97.429 Non-pressure chronic ulcer of left heel and midfoot with unspecified severity; K31.84 Gastroparesis; N31.8 Other neuromuscular dysfunction of bladder; D64.9 Anemia, unspecified; K51.90 Ulcerative colitis, unspecified, without complications; I25.10 Atherosclerotic heart disease of native coronary artery without angina pectoris; I10 Essential (primary) hypertension; Z20.822 Contact with and (suspected) exposure to COVID-19; E11.43 Type 2 diabetes mellitus with diabetic autonomic (poly)neuropathy; Z89.511 Acquired absence of right leg below knee; Z96.82 Presence of neurostimulator; Z99.3 Dependence on wheelchair; Z79.4 Long term (current) use of insulin; Z79.82 Long term (current) use of aspirin; Z79.899 Other long term (current) drug therapy
CPT/HCPCS: 36415; 74176; 80048; 80053; 81001; 82947; 83690; 83735; 85025; 85027; 85652; 86140; 87040; 87086; 87493; 87502; 87507; 87635; 88305; 89055; 99285; C9113; J1170; J1644; J1836; J1956; J2405; J2550; J2704; J3480

== ENCOUNTER → 2023-04-27 00:36 | Outpatient (BNV) | payer MEDICAID, SELFPAY | PROVIDERS: Admitting Provider Internal Medicine; Emergency Provider Emergency Medicine; PCP Internal Medicine; Visit Provider Internal Medicine | DX: K52.9 Noninfective gastroenteritis and colitis, unspecified (principal); K55.9 Vascular disorder of intestine, unspecified; E11.621 Type 2 diabetes mellitus with foot ulcer; E11.51 Type 2 diabetes mellitus with diabetic peripheral angiopathy without gangrene | CPT/HCPCS: 99223; 99232; 99239; 99499; G0180 ==

== ENCOUNTER 2023-07-01 02:58 | Inpatient (IN) | payer MEDICAID, SELFPAY ==
[2023-07-01] VITALS (9 sets, daily range): BP systolic 110–138; BP diastolic 36–74; PULSE 62–82; RESP 14–20; TEMP 36.1–36.5; O2SAT 95–99; BMI 29.5; BMI 28.4
--- NOTE | ~2023-07-01 | CT_ITS ---
EXAMINATION: CT ABDOMEN AND PELVIS WITH CONTRAST CLINICAL INFORMATION: Diarrhea. Abdominal pain. COMPARISON: 04/26/2013. TECHNIQUE: Multidetector volumetric images were obtained from the superior aspect of the liver through the pubic symphysis following administration 85 mL of Omnipaque 350 intravenous contrast. Sagittal and coronal reformatted images were obtained on the technologist's workstation. Oral contrast: No This CT examination was performed using dose optimization techniques as appropriate, variously including the following: *Automated exposure control *Adjustment of mA and/or kV according to patient size (this includes techniques or standardized protocols for targeted exams where dose is matched to indication/reason for exam; i.e. extremities or head) *Use of iterative reconstruction technique DLP: 534 mGy-cm FINDINGS: LUNG BASES: There are multiple stable lower lung field pulmonary nodules. LIVER, GALLBLADDER, AND BILIARY TREE: The liver is normal in size, shape, and attenuation. No focal hepatic lesion or biliary ductal dilatation is present. The gallbladder is unremarkable with no evidence of radiopaque gallstones, gallbladder wall thickening, or obvious pericholecystic inflammatory changes. PANCREAS: Unremarkable. SPLEEN: Unremarkable. ADRENAL GLANDS: Unremarkable. KIDNEYS AND URETERS: The kidneys are normal in size, shape, and attenuation. No hydronephrosis, hydroureter, or calculi seen. No perinephric stranding. There is a subcentimeter left renal hypodensity too small to characterize but likely a small cyst. BLADDER: Unremarkable. GASTROINTESTINAL TRACT: There appears to be mild gastric fold thickening. There is also mild thickening of the transverse descending and sigmoid colon. There is no evidence for bowel obstruction. ABDOMINAL WALL: No significant hernia is appreciated. LYMPH NODES: Normal. VASCULAR: Unremarkable. PELVIC VISCERA: Unremarkable. OSSEOUS STRUCTURES: The bony structures are heterogeneous/osteopenic. CT/CT abdomen pelvis w IV con IMPRESSION: 1. Mild gastric fold thickening possibly a mild gastritis. There is also mild thickening of the transverse, descending and sigmoid colon. These findings are suggestive of a mild colitis. 2. Stable lower lung field pulmonary nodules. Fleischner guidelines were followed.
--- NOTE | 2023-07-01 03:08 | ED.NAVMDI ---
HPI - Nausea/Vomiting/Diarrhea General Chief complaint: Abdominal Pain Stated complaint: nausea, diarrhea Time Seen by Provider: 07/01/23 03:06 Source: patient and old records reviewed Mode of arrival: EMS Limitations: no limitations History of Present Illness HPI Narrative: 63 yo female with multiple medical problems including gastroparesis s/p gastric pacemaker, type 2 DM, cholelithiasis, HTN, anxiety, R BKA, recurrent bouts of abdominal pain, L heel ulcer that vascular surgery follows ischemic colitis who presents with c/o not having a BM for 4 days so she took a dose of lactulose and for once it actually worked. Now she has severe diarrhea, diffuse abdominal cramps and nausea. She notes she cannot stop having BMs. She states she is very sore and tired. MD elicited complaint: nausea, diarrhea and abdominal pain Onset (ago): day(s) (started Monday night) Associated nausea: Yes Associated abdominal pain: Yes Location of pain: diffuse Radiation: diffuse Pain consistency: intermittent Severity: moderate Quality: cramping and aching Exacerbating factors: bowel movement Relieving factors: none Context: other (started after taking lactulose) Associated symptoms: loss of appetite, malaise, nausea/vomiting and weakness Related Data Home Medications ?Medication ?Instructions ?Recorded ?Confirmed isosorbide mononitrate 30 mg 30 mg PO DAILY 05/12/20 04/27/23 tablet,extended release 24 hr omeprazole 20 mg capsule,delayed 20 mg PO BID@0630,1630 05/12/20 04/27/23 release topiramate 100 mg tablet 100 mg PO BID 05/12/20 04/27/23 ergocalciferol (vitamin D2) 1,250 1,250 mcg PO RIVER 07/15/21 04/27/23 mcg (50,000 unit) capsule nitroglycerin 0.4 mg sublingual 0.4 mg sublingual Q5M PRN Chest 07/15/21 04/27/23 tablet (Nitrostat) Pain insulin glargine 100 unit/mL (3 40 unit subcut DAILY 07/22/21 04/27/23 mL) subcutaneous pen (Lantus Solostar U-100 Insulin) amitriptyline 50 mg tablet 50 mg PO BEDTIME 04/27/23 04/27/23 amlodipine 5 mg tablet 10 mg PO DAILY 04/27/23 04/27/23 aspirin 81 mg tablet,delayed 81 mg PO DAILY 04/27/23 04/27/23 release atorvastatin 80 mg tablet 80 mg PO BEDTIME 04/27/23 04/27/23 gabapentin 100 mg capsule 100 mg PO TID 04/27/23 04/27/23 losartan 100 mg tablet 100 mg PO BEDTIME 04/27/23 04/27/23 metoprolol succinate 100 mg 100 mg PO BID 04/27/23 04/27/23 tablet,extended release 24 hr Previous Rx's ?Medication ?Instructions ?Recorded oxycodone 5 mg tablet 5 mg PO Q8H PRN pain (scale score 05/01/23 7-10) #9 tabs Allergies Allergy/AdvReac Type Severity Reaction Status Date / Time Penicillins [PENICILLINS] Allergy Mild HIVES Verified 07/01/23 03:13 clarithromycin [From Biaxin] Allergy Unknown HIVES Verified 07/01/23 03:13 penicillin V Allergy Unknown rash, Verified 07/01/23 03:13 throat tight bioxin Allergy Unknown Unknown Uncoded 07/01/23 03:13 penicillin Allergy Unknown Unknown Uncoded 07/01/23 03:13 Review of Systems Review of Systems: Constitutional : No Weight loss, No Fever, No Chills ENT/Mouth : No sore throat, No Rhinorrhea Eyes: No Swelling, No Redness Cardiovascular : No Chest Pain, No SOB, NoEdema Respiratory : No Cough, No Sputum, No Wheezing Gastrointestinal : Positive Nausea, no Vomiting, positive Diarrhea, positive abdominal Pain, No Hematochezia, No Melena Genitourinary : No Dysuria, No Urinary Frequency, No Hematuria, No Urgency Musculoskeletal : No joint pain, No Myalgias, No Joint Swelling Skin : No Skin Lesions, No rash Neuro : No Weakness, No Numbness, No Dizziness, No Headache Psych : No Anxiety/Panic, No Depression All other systems reviewed and are negative. Gastrointestinal: Gastrointestinal: Reports nausea PMFSH Past Medical History Attestation statement: The following information was validated with the patient. Source: old records reviewed Medical History Diabetes type 2 with atherosclerosis of arteries of extremities Diabetic foot ulcer Diabetic neuropathy associated with diabetes mellitus due to underlying condition Hypotonic neurogenic bladder Delirium due to another medical condition Hyperglycemia Encephalopathy acute CVA (cerebral vascular accident) History of peptic ulcer disease Cholelithiasis Myocardial infarction Wheelchair bound Below knee amputation CAD (coronary artery disease) Chronic pain syndrome Depression Anxiety HTN (hypertension) Liver lesion History of gastrostomy tube placement Gastroparesis IDDM (insulin dependent diabetes mellitus) Surgical History History of back surgery Hx of BKA Family History Family History Father Coronary arteriosclerosis Social History Social History Household Members: None Housing: House Are you a primary child care education coordinator to a significant other at home: No Do you presently have visiting nurse or other home services: Yes Unable to assess alcohol history related to: Unable to respond Alcohol intake: former Comment: 1:1 sitter Patient Tobacco Use Status: Never used Tobacco Smoked in Last 30 Days: No Second Hand Smoke Exposure: No Use of substances other than those prescribed or required for medical reasons: No Advance Directives: Yes Advance Directives on File: Yes Advance Directives Date on File: 05/12/20 Patient : No service: No Current occupational status: unemployed and disabled Physical Exam Vital Signs: Vital Signs: Last Vital Signs Temp 97.0 F 07/01/23 06:00 Pulse 71 07/01/23 06:00 Resp 16 07/01/23 06:00 BP 125/53 L 07/01/23 06:00 Pulse Ox 96 07/01/23 06:00 O2 Del Method Room Air 07/01/23 06:00 BMI result Body Mass Index 29.5 Appearance: Alert. Oriented X3. No acute distress. older than stated age Eyes: Pupils equal, round and reactive to light. ENT: Pharynx normal. Neck: Normal inspection. Neck supple. CVS: Normal heart rate and rhythm. Pulses normal. Respiratory: No respiratory distress. Breath sounds normal. Abdomen: Soft and diffuse ttp no rebound Skin: Skin warm and dry. pale skin color. Normal skin turgor. Extremities: L leg 1+ pitting edema Neuro: Oriented X 3. No motor deficit. No sensory deficit. Course Course Course Narrative: elevated WBC count hx of DM and colitis at this time will start on levofloxacin infection suspected 442am Medications Administered Generic Name Dose Route Start Last Admin Trade Name Freq PRN Reason Stop Dose Admin Sodium Chloride 1,000 mls @ 100 mls/hr 07/01/23 03:30 07/01/23 04:09 Ns IVCONT 100 mls/hr .Q10H SANTI Administration Discontinued Medications Generic Name Dose Route Start Last Admin Trade Name Freq PRN Reason Stop Dose Admin Hydromorphone HCl 0.5 mg 07/01/23 03:23 07/01/23 04:07 Hydromorphone Hcl 0.5 Mg/0.5 Ml Syringe IVPUSH 07/01/23 03:24 0.5 mg ONCE ONE Administration Protocol Levofloxacin 500 mg in 100 mls @ 100 mls/hr 07/01/23 04:41 07/01/23 05:35 Levaquin IV 07/01/23 05:40 100 mls/hr ONCE ONE Administration Iohexol 85 ml 07/01/23 05:01 07/01/23 05:01 Iohexol 350 Mg/Ml 100 Ml Infus..Btl IV 07/01/23 05:02 85 ml ONCE ONE Administration Ondansetron HCl 4 mg 07/01/23 03:23 07/01/23 04:06 Ondansetron Hcl 4 Mg/2 Ml Vial IVPUSH 07/01/23 03:24 4 mg ONCE ONE Administration Medical Decision Making Medical Decision Making [facility] Narrative: 63 yo female with multiple medical problems including gastroparesis s/p gastric pacemaker, type 2 DM, cholelithiasis, HTN, anxiety, R BKA, recurrent bouts of abdominal pain, L heel ulcer that vascular surgery follows ischemic colitis who presents with c/o abdominal pain, diarrhea and nausea that started after taking lactulose. At this time labs, IVF, IV dilaudid for pain, CT scan for colitis, obstruction ordered. Differential Diagnosis Differential Diagnoses: The differential diagnosis associated with the presentation includes colitis, gastroparesis, obstruction Admission/Observation Consideration of admission/observation: Escalation of care including admission/observation considered admit for fluids, pain control, nausea, diarrhea Consult Healthcare Provider Management of the patient was discussed with: Hospitalist (will admit) Lab Data [facility] Lab Attestation statement: I reviewed the patient's lab results. 07/01/23 04:07 07/01/23 04:07 Labs: Lab Results 07/01/23 Range/Units 04:07 WBC 15.1 H (4.8-10.8) X10*3/uL RBC 3.02 L (4.20-5.50) X10*6/uL Hgb 10.0 L (12.0-16.0) g/dl Hct 28.6 L (37.0-47.0) % MCV 94.7 (80.0-98.0) fL MCH 33.1 H (27.0-33.0) pg MCHC 35.0 (31.0-35.0) g/dl RDW 12.1 (11.0-16.0) % Plt Count 176 (160-400) X10*3/uL MPV 10.1 (9.4-12.3) fL Immature Gran % (Auto) 0.3 (0.0-0.4) % Neut % (Auto) 82.1 H (45-73) % Lymph % (Auto) 8.1 L (20-40) % [place] % (Auto) 8.4 (2-11) % Eos % (Auto) 1.0 (0-4) % Baso % (Auto) 0.1 (0-2) % Lymph # (Auto) 1.2 (1.2-4.9) X10*3/uL [place] # (Auto) 1.3 H (0.1-1.2) X10*3/uL Eos # (Auto) 0.2 (0.0-0.4) X10*3/uL Baso # (Auto) 0.0 (0.0-0.2) X10*3/uL Abs Immat Gran (auto) 0.05 H (0.00-0.03) X10*3/uL Absolute Neuts (auto) 12.4 H (2.0-8.3) x10*3/uL Absolute Nucleated RBC 0.000 (0.0-0.012) X10*3/uL Nucleated RBC % (auto) 0.0 (0.0-0.2) /100WBC Sodium 137 (135-145) mmol/L Potassium 3.8 (3.3-5.1) mmol/L Chloride 106 (96-108) mmol/L Carbon Dioxide 24 (22-29) mmol/L Anion Gap 11 L (12-20) BUN 23 H (9-16) mg/dL Creatinine 0.95 (0.5-1.4) mg/dL Estim Creat Clear Calc 61.2 Estimated GFR 59 Random Glucose 161 H (60-115) mg/dL Lactic Acid 1.0 (0.5-2.0) mmol/L Calcium 10.5 H D (8.4-10.2) mg/dL Magnesium 2.0 (1.6-2.6) mg/dL Total Bilirubin 0.3 (0.0-1.0) mg/dL Direct Bilirubin 0.1 (0.0-0.5) mg/dL AST 17 (5-31) U/L ALT 11 (0-31) U/L Alkaline Phosphatase 94 (39-117) U/L Troponin I High Sens 3.4 (<3.5-17.0) ng/L Total Protein 7.4 (6.5-8.0) g/dL Albumin 4.0 (3.5-5.0) g/dL Lipase 16 (8-78) U/L Independent Interpretation I performed an independent interpretation of an: EKG and CT Scan (gastritis, colitis) Interpretation: Rate: 65 Rhythm: NSR [place]: normal Normal P waves. Normal MARY. Normal QRS complex. ST T wave : no DAMARIS, inverted t waves in III and aVF, V6 qTC: 438 prior studies: no change from prior The study has been interpreted contemporaneously by me. . Radiology Impression Discussion of test interpretation with radiology: I have reviewed the radiologist's reading. Independent Historian Clinical information obtained from an independent historian. History obtained from or confirmed by: EMS External Record Review External record reviewed: Inpatient record Critical Care Time Critical Care Time Critical Care Time: Yes Total Critical Care Time: 40 Attestation: review of records, admission, pain improved with IV dilaudid I attest to this time spent taking care of the patient Discharge Plan Discharge Clinical Impression: Acute diarrhea, Colitis Abdominal pain Qualifiers: Abdominal location: generalized Qualified Code(s): R10.84 - Generalized abdominal pain Vomiting Qualifiers: Vomiting type: unspecified Nausea presence: with nausea Qualified Code(s): R11.2 - Nausea with vomiting, unspecified Elevated WBC count Qualifiers: Leukocytosis type: unspecified Qualified Code(s): D72.829 - Elevated white blood cell count, unspecified Gastritis Qualifiers: Gastritis type: unspecified gastritis Chronicity: acute Gastritis bleeding: without bleeding Qualified Code(s): K29.00 - Acute gastritis without bleeding Patient Disposition: Admitted As Inpatient Print Language: [place]i
--- NOTE | 2023-07-01 03:25 | ECG_ITS ---
Test Reason : ABD PAIN Blood Pressure : / mmHG Vent. Rate : 065 BPM Atrial Rate : 065 BPM P-R Int : 170 ms QRS Dur : 108 ms QT Int : 422 ms P-R-T Axes : 040 031 -02 degrees QTc Int : 438 ms Normal sinus rhythm Low voltage QRS Borderline ECG When compared with ECG of 16-SEP-2022 10:55, Nonspecific T wave abnormality now evident in Lateral leads Referred By: Suze Flood Electronically Signed By:Chet Herrera
[2023-07-01] MEDS: ondansetron HCL 4 MG/2 ML VIAL IVPUSH (04:06)
[2023-07-01] MEDS: HYDROmorphone HCl 0.5 MG/0.5 ML SYRINGE IVPUSH (04:07)
[2023-07-01] MEDS: 0.9 % Sodium Chloride 1,000 ML 100 ML IVCONT ×3 (04:09→23:51)
[2023-07-01 04:11] LABS: MANUAL DIFF FLAG NO
--- NOTE | 2023-07-01 04:12 | PC.NURSE ---
Pt medicated per may. Pt labs drawn and sent. Plan of care ongoing.
[2023-07-01 04:13] LABS: Basophils Percent Auto 0.1 % (0-2); Eosinophils Absolute Auto 0.2 X10*3/uL (0.0-0.4); Hematocrit 28.6 % (37.0-47.0); Imm Gran Abs Auto 0.05 X10*3/uL (0.00-0.03); Imm Gran Pct Auto 0.3 % (0.0-0.4); Lymphocytes Absolute Auto 1.2 X10*3/uL (1.2-4.9); Lymphocytes Percent Auto 8.1 % (20-40); Mean Corpuscular Hemoglobin 33.1 pg (27.0-33.0); Mean Corpuscular Volume 94.7 fL (80.0-98.0); Mean Platelet Volume 10.1 fL (9.4-12.3); Monocytes Absolute Auto 1.3 X10*3/uL (0.1-1.2); Monocytes Percent Auto 8.4 % (2-11); Neutrophils Absolute Auto 12.4 x10*3/uL (2.0-8.3); Neutrophils Percent Auto 82.1 % (45-73); Platelet Count 176 X10*3/uL (160-400); Red Blood Count 3.02 X10*6/uL (4.20-5.50); Red Cell Distribution Width 12.1 % (11.0-16.0); White Blood Count 15.1 X10*3/uL (4.8-10.8)
[2023-07-01 04:44] LABS: Alanine Aminotransferase 11 U/L (0-31); Alkaline Phosphatase 94 U/L (39-117); Anion Gap 11 (12-20); Aspartate Amino Transferase 17 U/L (5-31); Bilirubin Direct 0.1 mg/dL (0.0-0.5); Bilirubin Total 0.3 mg/dL (0.0-1.0); Blood Urea Nitrogen 23 mg/dL (9-16); Calcium 10.5 mg/dL (8.4-10.2); Carbon Dioxide 24 mmol/L (22-29); Chloride 106 mmol/L (96-108); Creatinine Clr Calc Pharmacy 61.2; Estimated Glomerular Filt Rate 59; Glucose Random 161 mg/dL (60-115); Lipase 16 U/L (8-78); Potassium 3.8 mmol/L (3.3-5.1); Sodium 137 mmol/L (135-145); Total Protein 7.4 g/dL (6.5-8.0)
[2023-07-01 04:46] LABS: Troponin-I High Sensitivity 3.4 ng/L (<3.5-17.0)
--- NOTE | 2023-07-01 05:00 | PC.NURSE ---
Pt with CT. Plan of care ongoing.
[2023-07-01] MEDS: iohexoL 350 MG/ML 100 ML INFUS..BTL 85 ML IV (05:01)
[2023-07-01] MEDS: levoFLOXacin/D5W 500 MG/100 ML PIGGYBACK 100 MG IV (05:35)
--- NOTE | 2023-07-01 05:40 | PC.NURSE ---
1st set of cultures obtained and sent. Plan of care ongoing.
[2023-07-01] MEDS: Pantoprazole Sodium 40 MG/10 ML VIAL IVPUSH (06:56)
--- NOTE | 2023-07-01 07:00 | PC.NURSE ---
Pt medicated per may. Plan of care ongoing.
--- NOTE | 2023-07-01 07:30 | PC.NURSE ---
this rn resumed care of pt at 0645. a&ox4. vss and up to date. nsr on the telemetry monitor. pt verbalizing increase left sided abd pain. pt rating pain at a 7/10 at this time. pt also verbalizing intermittent episodes of n/v/d. no episodes since being in the ED at this time. pt changed into hospital attire. when repositioning - pt skin warm to the touch. rectal temp obtained. pt afebrile. pt now resting comfortably in bed in no apparent distress. pt aware of future plan of care in regards to being admitted. pt aware that urine and stool sample is needed so it can be sent to the lab. no sob/wob noted. respirations even and unlabored. plan of care ongoing. call alvarado placed within reach.
[2023-07-01] MEDS: Enoxaparin Sodium 40 MG/0.4 ML SYRINGE SUBCUT (07:49)
--- NOTE | 2023-07-01 08:36 | PC.NURSE ---
pt speaking w/ dr. velazquez in regards to plan of care while being admitted. admission worksheet complete. will transfer pt when conversation is complete.
[2023-07-01] MEDS: Morphine Sulfate 4 MG/ML CARTRIDGE IVPUSH ×2 (08:46→19:44)
--- NOTE | 2023-07-01 08:50 | PC.NURSE ---
dr. velazquez bedside telling this RN to order 4mg morphine IVP once for pt. verbal order placed in [facility]. medication administered per provider order. pt being transported upstairs by measurement technician at this time.
[2023-07-01 09:09] LABS: Glucose, Whole Blood 204 mg/dL (60-115)
--- NOTE | 2023-07-01 10:48 | PHA.MEDREC ---
Pharmacy Consult ? Medication Reconciliation Pharmacy has completed the medication reconciliation. Patient does not know what she takes. Spoke with daughter Codie ([phone]) to confirm a few of the medications, did not have the list with her currently. She reports that the patient does not take the Lantus everyday, especially if she has not been eating but confirmed it was 30 units. Confirmed amlodipine 10mg daily and lactulose prn for constipation. Daughter explained patient does have a history of narcotic abuse and does not want patient sent home again with narcotics for pain. Used claim history for other medications.
[2023-07-01 11:36] LABS: Glucose, Whole Blood 159 mg/dL (60-115)
[2023-07-01] MEDS: Metoprolol Succinate ER 100 MG TAB.ER.24H PO ×2 (11:44→19:49)
[2023-07-01] MEDS: Topiramate 100 MG TABLET PO ×2 (11:44→19:49)
[2023-07-01] MEDS: Isosorbide Mononitrate 30 MG TAB.ER.24H PO (11:45)
[2023-07-01] MEDS: Insulin Lispro 100 UNIT/ML 3 ML VIAL SUBCUT ×2 (11:45→20:07)
--- NOTE | 2023-07-01 12:33 | PM.IMHP ---
History of Present Illness Date of Service: 07/01/23 Chief Complaint: abd pain 63 yo female with multiple medical problems including gastroparesis s/p gastric pacemaker, type 2 DM, cholelithiasis, HTN, anxiety, R BKA, recurrent bouts of abdominal pain, L heel ulcer that vascular surgery follows ischemic colitis who presents with c/o not having a BM for 4 days so she took a dose of lactulose and for once it actually worked. Now she has severe diarrhea, diffuse abdominal cramps and nausea. She notes she cannot stop having BMs. CT done in the ER demonstrated mild gastric fold thickening possibly a mild gastritis and also mild thickening of the transverse descending and sigmoid colon suggestive of colitis. Recently admitted 04/27 - 05/01 for proctocolitis. She states she felt fine at home until a few days prior to admission with the above complaints Review of Systems Review of Systems: Denies chest pain Denies shortness of breath Denies fever chills Admits to nausea mild abdominal pain and diarrhea PMF Medical History (Updated 07/01/23 @ 12:54 by Rajat Pope DO) Diabetes type 2 with atherosclerosis of arteries of extremities Diabetic foot ulcer Diabetic neuropathy associated with diabetes mellitus due to underlying condition Hypotonic neurogenic bladder Delirium due to another medical condition Hyperglycemia Encephalopathy acute CVA (cerebral vascular accident) History of peptic ulcer disease Cholelithiasis Myocardial infarction Wheelchair bound Below knee amputation CAD (coronary artery disease) Chronic pain syndrome Depression Anxiety HTN (hypertension) Liver lesion History of gastrostomy tube placement Gastroparesis IDDM (insulin dependent diabetes mellitus) Family History Father Coronary arteriosclerosis Surgical History History of back surgery Hx of BKA Social History Household Members: None Housing: Apartment Are you a primary field care coordinator to a significant other at home: No Do you presently have visiting nurse or other home services: Yes Unable to assess alcohol history related to: Unable to respond Alcohol intake: former Comment: 1:1 sitter Patient Tobacco Use Status: Never used Tobacco Smoked in Last 30 Days: No Second Hand Smoke Exposure: No Use of substances other than those prescribed or required for medical reasons: No Have you been hit, kicked, punched, or otherwise hurt by someone within the past year? If so, by whom?: No Do you feel safe in your current relationship?: No Current Relationship Is there a partner from a previous relationship who is making you feel unsafe now?: No Are you made to feel afraid or neglected: No Advance Directives: Yes Advance Directives on File: Yes Advance Directives Date on File: 05/12/20 Do you have thoughts of harming others: None Do you have a plan to hurt others: No Plan Recently lost weight without trying: No Eating poorly because of decreased appetite: No Nutrition Risks: No Nutritional Risk Patient : No service: No Current occupational status: unemployed and disabled Meds Allergies Allergy/AdvReac Type Severity Reaction Status Date / Time Penicillins [PENICILLINS] Allergy Mild HIVES Verified 07/01/23 03:13 clarithromycin [From Biaxin] Allergy Unknown HIVES Verified 07/01/23 03:13 penicillin V Allergy Unknown rash, Verified 07/01/23 03:13 throat tight bioxin Allergy Unknown Unknown Uncoded 07/01/23 03:13 penicillin Allergy Unknown Unknown Uncoded 07/01/23 03:13 Active Medications: Current Medications Amitriptyline HCl (Amitriptyline Hcl 50 Mg Tablet) 50 mg PO BEDTIME [facility] Amlodipine Besylate (Amlodipine Besylate 10 Mg Tablet) 10 mg PO DAILY [facility]; Protocol Aspirin (Aspirin Enteric Coated 81 Mg Tablet.Dr) 81 mg PO DAILY [facility] Atorvastatin Calcium (Atorvastatin Calcium 80 Mg Tablet) 80 mg PO BEDTIME [facility] Enoxaparin Sodium (Enoxaparin Sodium 40 Mg/0.4 Ml Syringe) 40 mg SUBCUT Q24H [facility] Last Admin: 07/01/23 07:49 Dose: 40 mg Ergocalciferol (Ergocalciferol (Vitamin D2) 1,250 Mcg Capsule) 1,250 mcg PO RIVER [facility] Gabapentin (Gabapentin 100 Mg Capsule) 100 mg PO TID [facility] Glucose (Glucose Gel 15 Gm Gel..Gram.) 15 gm PO Q15M PRN; Protocol PRN Reason: per Hypoglycemia Standing Ord. Sodium Chloride (Ns) 1,000 mls @ 100 mls/hr IVCONT .Q10H [facility] Last Admin: 07/01/23 04:09 Dose: 100 mls/hr Dextrose (D10) 250 mls @ 750 mls/hr IV Q15M PRN; Protocol PRN Reason: per Hypoglycemia Standing Ord. Insulin Human Lispro (Insulin Lispro 100 Unit/Ml 3 Ml Vial) 0 unit SUBCUT QIDACHS [facility]; Protocol Last Admin: 07/01/23 11:45 Dose: 2 unit Isosorbide Mononitrate (Isosorbide Mononitrate 30 Mg Tab.Er.24h) 30 mg PO DAILY [facility]; Protocol Last Admin: 07/01/23 11:45 Dose: 30 mg Lactulose (Lactulose 20 Gm/30 Ml Solution) 10 gm PO DAILY PRN PRN Reason: Constipation Losartan Potassium (Losartan Potassium 50 Mg Tablet) 100 mg PO BEDTIME [facility]; Protocol Metoprolol Succinate (Metoprolol Succinate Er 100 Mg Tab.Er.24h) 100 mg PO BID [facility]; Protocol Last Admin: 07/01/23 11:44 Dose: 100 mg Nitroglycerin (Nitroglycerin 0.4 Mg Tab.Subl) 0.4 mg SUBLINGUAL Q5M PRN PRN Reason: Chest Pain Omeprazole (Omeprazole 20 Mg Capsule.Dr) 20 mg PO BID@0630,1630 [facility] Sodium Chloride (0.9 % Sodium Chloride Flush 3 Ml Syringe) 3 ml IVFLUSH QSHIFT [facility] Last Admin: 07/01/23 07:49 Dose: Not Given Topiramate (Topiramate 100 Mg Tablet) 100 mg PO BID [facility] Last Admin: 07/01/23 11:44 Dose: 100 mg Tramadol HCl (Tramadol Hcl 50 Mg Tablet) 50 mg PO Q6H PRN PRN Reason: Pain, Moderate(Pain Scale 4-6) Home Medications ?Medication ?Instructions ?Recorded ?Confirmed ?Last Taken ?Type isosorbide mononitrate 30 mg 30 mg PO DAILY 05/12/20 07/01/23 01/29/21 History tablet,extended release 24 hr omeprazole 20 mg capsule,delayed 20 mg PO BID@0630,1630 05/12/20 07/01/23 01/27/21 History release topiramate 100 mg tablet 100 mg PO BID 05/12/20 07/01/23 01/29/21 History ergocalciferol (vitamin D2) 1,250 1,250 mcg PO RIVER 07/15/21 07/01/23 Unknown History mcg (50,000 unit) capsule nitroglycerin 0.4 mg sublingual 0.4 mg sublingual Q5M PRN Chest 04/28/22 04/13/24 Unknown History tablet (Nitrostat) Pain insulin glargine 100 unit/mL (3 30 unit subcut DAILY PRN 07/22/21 07/01/23 Unknown History mL) subcutaneous pen (Lantus Hyperglycemia Solostar U-100 Insulin) amitriptyline 50 mg tablet 50 mg PO BEDTIME 04/27/23 07/01/23 Unknown History aspirin 81 mg tablet,delayed 81 mg PO DAILY 04/27/23 07/01/23 Unknown History release atorvastatin 80 mg tablet 80 mg PO BEDTIME 04/27/23 07/01/23 Unknown History gabapentin 100 mg capsule 100 mg PO TID 04/27/23 07/01/23 Unknown History losartan 100 mg tablet 100 mg PO BEDTIME 04/27/23 07/01/23 Unknown History metoprolol succinate 100 mg 100 mg PO BID 04/27/23 07/01/23 Unknown History tablet,extended release 24 hr amlodipine 10 mg tablet 10 mg PO DAILY 07/01/23 07/01/23 Unknown History lactulose 10 gram/15 mL oral 15 ml PO DAILY PRN Constipation 07/01/23 07/01/23 Unknown History solution Physical Exam Vital Signs and Narrative: Vital Signs: Last Vital Signs Temp 97.7 F 07/01/23 09:10 Pulse 63 07/01/23 11:44 Resp 18 07/01/23 09:10 BP 132/58 L 07/01/23 11:44 Pulse Ox 97 07/01/23 09:10 O2 Del Method Room Air 07/01/23 09:10 BMI result Body Mass Index 28.4 Const: Other: Awake alert no acute distress Resp: Other: Clear to auscultation bilaterally no rales rhonchi or wheezes Cardio: Other: No S4; positive S1-S2; no S3 murmurs rubs or gallops GI: Other: Soft tender throughout; quiet bowel sounds Extrem: Other: Right BKA; left lower extremity with compression dressing Results Labs 07/01/23 04:07 07/01/23 04:07 Labs: Laboratory Results - last 24 hr 07/01/23 07/01/23 07/01/23 04:07 09:01 11:32 MCV 94.7 MCH 33.1 H MCHC 35.0 RDW 12.1 Plt Count 176 MPV 10.1 Immature Gran % (Auto) 0.3 Neut % (Auto) 82.1 H Lymph % (Auto) 8.1 L [place] % (Auto) 8.4 Eos % (Auto) 1.0 Baso % (Auto) 0.1 Lymph # (Auto) 1.2 [place] # (Auto) 1.3 H Eos # (Auto) 0.2 Baso # (Auto) 0.0 Abs Immat Gran (auto) 0.05 H Absolute Neuts (auto) 12.4 H Absolute Nucleated RBC 0.000 Nucleated RBC % (auto) 0.0 Anion Gap 11 L Estim Creat Clear Calc 61.2 Estimated GFR 59 POC Glucose 204 H 159 H Random Glucose 161 H Lactic Acid 1.0 Calcium 10.5 H D Magnesium 2.0 Total Bilirubin 0.3 Direct Bilirubin 0.1 AST 17 ALT 11 Alkaline Phosphatase 94 Troponin I High Sens 3.4 Total Protein 7.4 Albumin 4.0 Lipase 16 Imaging Radiologist's Impressions: Impressions Abdomen/Pelvis CT 07/01/23 04:55 IMPRESSION: 1. Mild gastric fold thickening possibly a mild gastritis. There is also mild thickening of the transverse, descending and sigmoid colon. These findings are suggestive of a mild colitis. 2. Stable lower lung field pulmonary nodules. Fleischner guidelines were followed. Assessment and Plan (1) Colitis: Status: Acute (2) Diabetes type 2 with atherosclerosis of arteries of extremities: Status: Acute (3) CAD (coronary artery disease): Qualifiers: Coronary Disease-Associated Artery/Lesion type: unspecified vessel or lesion type [place] vs. transplanted heart: [place] heart Associated angina: unspecified whether angina present Qualified Code(s): I25.10 - Atherosclerotic heart disease of [place] coronary artery without angina pectoris Status: Acute Plan 63-year-old female with past medical history including gastroparesis status post gastric pacemaker, type 2 diabetes, hypertension, right BKA in backdrop of diabetes presents with worsening abdominal pain over the last 4 days. She also notes persistent diarrhea that is nonbloody. In the emergency room initial CT scan suggestive of mild colitis; 1.Colitis -Levaquin/Flagyl (1) -clear liquid diet to start. .. Advance as tolerated -supplemental IV fluids until taking adequate p.o. -GI panel unremarkable; C diff pending -morphine/oxycodone for pain 2. Diabetes type 2 -acceptable control on current therapies -lispro correctional scale -adjust as indicated 3.CAD -stable and well compensated; no acute issues at this time -continue outpatient therapies Full code Lovenox Patient will require at least 2 midnights going forward to treat colitis with IV antibiotics; requiring restricted diet will require IV volume repletion. This can not be achieved a lesser acute setting Quality Stroke Does the patient have a stroke diagnosis?: No VTE Prior VTE?: No VTE Risk Level:: Medical - moderate - high VTE Device Contraindication: Treatment Not Indicated VTE Drug Contraindication: N/A - Med Ordered
[2023-07-01] MEDS: metroNIDAZOLE/NS 500 MG/100 ML PIGGYBACK 100 MG IV ×2 (13:02→20:08)
[2023-07-01] MEDS: traMADoL HCL 50 MG TABLET PO (15:28)
[2023-07-01] MEDS: Omeprazole 20 MG CAPSULE.DR PO (15:28)
[2023-07-01] MEDS: Gabapentin 100 MG CAPSULE PO ×2 (15:28→19:48)
[2023-07-01 16:23] LABS: Glucose, Whole Blood 139 mg/dL (60-115)
[2023-07-01] MEDS: Atorvastatin Calcium 80 MG TABLET PO (19:48)
[2023-07-01] MEDS: Losartan Potassium 50 MG TABLET 100 MG PO (19:48)
[2023-07-01] MEDS: Amitriptyline HCl 50 MG TABLET PO (19:49)
[2023-07-01] MEDS: 0.9 % Sodium Chloride Flush 3 ML SYRINGE IVFLUSH (19:52)
[2023-07-01 20:21] LABS: Glucose, Whole Blood 167 mg/dL (60-115)
[2023-07-02 03:26] VITALS: BP 133/77; PULSE 53; RESP 16; TEMP 36.1; O2SAT 97
[2023-07-02] MEDS: levoFLOXacin/D5W 500 MG/100 ML PIGGYBACK 100 MG IV (04:58)
[2023-07-02] MEDS: Omeprazole 20 MG CAPSULE.DR PO ×2 (05:32→17:09)
[2023-07-02 05:49] LABS: Appearance Urine Clear; Color Urine Yellow; Glucose Urine UA Negative (Negative); Leukocyte Esterase Urine Negative (Negative); Nitrite Urine Negative (Negative); PH 5.5 (5.0-9.0); Specific Gravity - Urine 1.015 (1.005-1.025); Urine Blood Negative (Negative); Urine Ketones Negative (Negative); Urine Protein Negative (Neg-Trace)
--- NOTE | 2023-07-02 05:49 | PC.NURSE ---
Addendum entered by Codie Ray RN 07/02/23 06:33: Pt post bladder scan for 379mls. MD Dawkins was notified of the situation. No new orders were given. Will continue to monitor the pt's output. Original Note: Approximately at 05:00, pt was bladder scan for 720mls. MD Dawkins notified of the situation and straight catheter was ordered. Pt was straight cath for 500mls of yellow urine. UA sample sent down to lab. Will continue to monitor.
[2023-07-02 06:04] LABS: MANUAL DIFF FLAG NO
[2023-07-02] MEDS: metroNIDAZOLE/NS 500 MG/100 ML PIGGYBACK 100 MG IV ×3 (06:04→20:16)
[2023-07-02 06:17] LABS: Basophils Percent Auto 0.3 % (0-2); Eosinophils Absolute Auto 0.2 X10*3/uL (0.0-0.4); Eosinophils Percent Auto 2.7 % (0-4); Hemoglobin 8.7 g/dl (12.0-16.0); Imm Gran Abs Auto 0.02 X10*3/uL (0.00-0.03); Imm Gran Pct Auto 0.3 % (0.0-0.4); Lymphocytes Absolute Auto 2.6 X10*3/uL (1.2-4.9); Lymphocytes Percent Auto 43.7 % (20-40); Mean Corpuscular HGB Conc 33.5 g/dl (31.0-35.0); Mean Corpuscular Hemoglobin 32.5 pg (27.0-33.0); Mean Platelet Volume 10.2 fL (9.4-12.3); Monocytes Absolute Auto 0.6 X10*3/uL (0.1-1.2); Monocytes Percent Auto 10.8 % (2-11); Neutrophils Absolute Auto 2.5 x10*3/uL (2.0-8.3); Neutrophils Percent Auto 42.2 % (45-73); Platelet Count 141 X10*3/uL (160-400); Red Blood Count 2.68 X10*6/uL (4.20-5.50); Red Cell Distribution Width 12.6 % (11.0-16.0)
[2023-07-02 06:49] LABS: Alanine Aminotransferase 9 U/L (0-31); Albumin Level 3.3 g/dL (3.5-5.0); Alkaline Phosphatase 59 U/L (39-117); Anion Gap 10 (12-20); Aspartate Amino Transferase 15 U/L (5-31); Bilirubin Total 0.3 mg/dL (0.0-1.0); Blood Urea Nitrogen 15 mg/dL (9-16); Carbon Dioxide 23 mmol/L (22-29); Chloride 112 mmol/L (96-108); Creatinine Clr Calc Pharmacy 73.2; Estimated Glomerular Filt Rate > 60; Glucose Fasting 99 mg/dL (60-99); Sodium 141 mmol/L (135-145); Total Protein 5.9 g/dL (6.5-8.0)
[2023-07-02 07:27] VITALS: BP 135/61; PULSE 60; RESP 14; TEMP 36.3; O2SAT 96
[2023-07-02 07:35] LABS: Glucose, Whole Blood 85 mg/dL (60-115)
[2023-07-02] MEDS: Metoprolol Succinate ER 100 MG TAB.ER.24H PO ×2 (09:21→20:16)
[2023-07-02] MEDS: amLODIPine Besylate 10 MG TABLET PO (09:21)
[2023-07-02] MEDS: Aspirin Enteric Coated 81 MG TABLET.DR PO (09:21)
[2023-07-02] MEDS: Gabapentin 100 MG CAPSULE PO ×3 (09:21→20:16)
[2023-07-02] MEDS: Isosorbide Mononitrate 30 MG TAB.ER.24H PO (09:21)
[2023-07-02] MEDS: Topiramate 100 MG TABLET PO ×2 (09:21→20:16)
[2023-07-02] MEDS: Enoxaparin Sodium 40 MG/0.4 ML SYRINGE SUBCUT (09:22)
[2023-07-02] MEDS: Morphine Sulfate 4 MG/ML CARTRIDGE IVPUSH ×2 (09:33→20:15)
[2023-07-02] MEDS: Ergocalciferol (Vitamin D2) 1,250 MCG CAPSULE 1250 MCG PO (11:01)
[2023-07-02] MEDS: 0.9 % Sodium Chloride 1,000 ML 100 ML IVCONT ×2 (11:03→21:29)
[2023-07-02 12:00] LABS: Glucose, Whole Blood 100 mg/dL (60-115)
--- NOTE | 2023-07-02 12:18 | P.PNIM_ITS ---
Subjective Subjective Date of Service: 07/02/23 Interval History: No acute issues overnight. Essentially no change in abdominal discomfort Review of Systems Denies chest pain Denies shortness of breath Denies fever chills Admits to nausea mild abdominal pain and diarrhea Physical Exam 2 Vital Signs: Vital Signs: Last Vital Signs Temp 97.4 F 07/02/23 07:27 Pulse 60 07/02/23 07:27 Resp 14 07/02/23 07:27 BP 135/61 07/02/23 07:27 Pulse Ox 96 07/02/23 07:27 O2 Del Method Room Air 07/02/23 07:27 BMI result Body Mass Index 28.4 Const: Other: Awake alert no acute distress Resp: Other: Clear to auscultation bilaterally no rales rhonchi or wheezes Cardio: Other: No S4; positive S1-S2; no S3 murmurs rubs or gallops GI: Other: Soft tender throughout; quiet bowel sounds Extrem: Other: Right BKA; left lower extremity with compression dressing Objective Data Active Medications Amitriptyline HCl (Amitriptyline Hcl 50 Mg Tablet) 50 mg PO BEDTIME [facility] Last Admin: 07/01/23 19:49 Dose: 50 mg Documented By: REYNA Amlodipine Besylate (Amlodipine Besylate 10 Mg Tablet) 10 mg PO DAILY [facility]; Protocol Last Admin: 07/02/23 09:21 Dose: 10 mg Documented By: MARI Aspirin (Aspirin Enteric Coated 81 Mg Tablet.) 81 mg PO DAILY [facility] Last Admin: 07/02/23 09:21 Dose: 81 mg Documented By: MARI Atorvastatin Calcium (Atorvastatin Calcium 80 Mg Tablet) 80 mg PO BEDTIME [facility] Last Admin: 07/01/23 19:48 Dose: 80 mg Documented By: REYNA Enoxaparin Sodium (Enoxaparin Sodium 40 Mg/0.4 Ml Syringe) 40 mg SUBCUT Q24H [facility] Last Admin: 07/02/23 09:22 Dose: 40 mg Documented By: MARI Ergocalciferol (Ergocalciferol (Vitamin D2) 1,250 Mcg Capsule) 1,250 mcg PO RIVER [facility] Last Admin: 07/02/23 11:01 Dose: 1,250 mcg Documented By: MARI Gabapentin (Gabapentin 100 Mg Capsule) 100 mg PO TID [facility] Last Admin: 07/02/23 09:21 Dose: 100 mg Documented By: MARI Glucose (Glucose Gel 15 Gm Gel..Gram.) 15 gm PO Q15M PRN; Protocol PRN Reason: per Hypoglycemia Standing Ord. Sodium Chloride (Ns) 1,000 mls @ 100 mls/hr IVCONT .Q10H [facility] Last Admin: 07/02/23 11:03 Dose: 100 mls/hr Documented By: MARI Dextrose (D10) 250 mls @ 750 mls/hr IV Q15M PRN; Protocol PRN Reason: per Hypoglycemia Standing Ord. Levofloxacin (Levaquin) 500 mg in 100 mls @ 100 mls/hr IV Q24H [facility] Last Infusion: 07/02/23 05:58 Dose: Infused Documented By: REYNA Metronidazole (Flagyl) 500 mg in 100 mls @ 100 mls/hr IV Q8H [facility] Last Infusion: 07/02/23 07:22 Dose: Infused Documented By: MARI Insulin Human Lispro (Insulin Lispro 100 Unit/Ml 3 Ml Vial) 0 unit SUBCUT QIDACHS [facility]; Protocol Last Admin: 07/02/23 11:57 Dose: Not Given Documented By: MARI Non-Admin Reason: No Insulin Coverage Isosorbide Mononitrate (Isosorbide Mononitrate 30 Mg Tab.Er.24h) 30 mg PO DAILY [facility]; Protocol Last Admin: 07/02/23 09:21 Dose: 30 mg Documented By: MARI Lactulose (Lactulose 20 Gm/30 Ml Solution) 10 gm PO DAILY PRN PRN Reason: Constipation Losartan Potassium (Losartan Potassium 50 Mg Tablet) 100 mg PO BEDTIME [facility]; Protocol Last Admin: 07/01/23 19:48 Dose: 100 mg Documented By: REYNA Metoprolol Succinate (Metoprolol Succinate Er 100 Mg Tab.Er.24h) 100 mg PO BID [facility]; Protocol Last Admin: 07/02/23 09:21 Dose: 100 mg Documented By: MARI Morphine Sulfate (Morphine Sulfate 4 Mg/Ml Cartridge) 4 mg IVPUSH Q4H PRN; Protocol PRN Reason: Pain, Severe (Pain Scale 7-10) Last Admin: 07/02/23 09:33 Dose: 4 mg Documented By: MARI Nitroglycerin (Nitroglycerin 0.4 Mg Tab.Subl) 0.4 mg SUBLINGUAL Q5M PRN PRN Reason: Chest Pain Omeprazole (Omeprazole 20 Mg Capsule.Dr) 20 mg PO BID@0630,1630 [facility] Last Admin: 07/02/23 05:32 Dose: 20 mg Documented By: REYNA Sodium Chloride (0.9 % Sodium Chloride Flush 3 Ml Syringe) 3 ml IVFLUSH QSHIFT [facility] Last Admin: 07/02/23 09:21 Dose: Not Given Documented By: MARI Non-Admin Reason: IV Running Topiramate (Topiramate 100 Mg Tablet) 100 mg PO BID [facility] Last Admin: 07/02/23 09:21 Dose: 100 mg Documented By: MARI Tramadol HCl (Tramadol Hcl 50 Mg Tablet) 50 mg PO Q6H PRN PRN Reason: Pain, Moderate(Pain Scale 4-6) Last Admin: 07/01/23 15:28 Dose: 50 mg Documented By: MYNORB Labs 07/02/23 05:54 07/02/23 05:54 Labs: Laboratory Results - last 24 hr 07/01/23 07/01/23 07/02/23 16:07 19:43 05:37 MCV MCH MCHC RDW Plt Count MPV Immature Gran % (Auto) Neut % (Auto) Lymph % (Auto) [place] % (Auto) Eos % (Auto) Baso % (Auto) Lymph # (Auto) [place] # (Auto) Eos # (Auto) Baso # (Auto) Abs Immat Gran (auto) Absolute Neuts (auto) Absolute Nucleated RBC Nucleated RBC % (auto) Anion Gap Estim Creat Clear Calc Estimated GFR POC Glucose 139 H 167 H Fasting Glucose Calcium Total Bilirubin AST ALT Alkaline Phosphatase Total Protein Albumin Urine Color Yellow Urine Appearance Clear Urine pH 5.5 Ur Specific [place] 1.015 Urine Protein Negative Urine Glucose (UA) Negative Urine Ketones Negative Urine Blood Negative Urine Nitrite Negative Ur Leukocyte Esterase Negative 07/02/23 07/02/23 07/02/23 05:54 07:31 11:51 MCV 97.0 MCH 32.5 MCHC 33.5 RDW 12.6 Plt Count 141 L MPV 10.2 Immature Gran % (Auto) 0.3 Neut % (Auto) 42.2 L Lymph % (Auto) 43.7 H [place] % (Auto) 10.8 Eos % (Auto) 2.7 Baso % (Auto) 0.3 Lymph # (Auto) 2.6 [place] # (Auto) 0.6 Eos # (Auto) 0.2 Baso # (Auto) 0.0 Abs Immat Gran (auto) 0.02 Absolute Neuts (auto) 2.5 Absolute Nucleated RBC 0.000 Nucleated RBC % (auto) 0.0 Anion Gap 10 L Estim Creat Clear Calc 73.2 Estimated GFR > 60 POC Glucose 85 100 Fasting Glucose 99 Calcium 9.0 D Total Bilirubin 0.3 AST 15 ALT 9 Alkaline Phosphatase 59 Total Protein 5.9 L Albumin 3.3 L Urine Color Urine Appearance Urine pH Ur Specific [place] Urine Protein Urine Glucose (UA) Urine Ketones Urine Blood Urine Nitrite Ur Leukocyte Esterase Microbiology Microbiology Results: Microbiology 07/01/23 06:10 Blood Culture - Preliminary Blood - Venous No growth after 24 hours. 07/01/23 05:18 Blood Culture - Preliminary Blood - Venous No growth after 24 hours. Assessment and Plan (1) Colitis: Status: Acute (2) Diabetes type 2 with atherosclerosis of arteries of extremities: Status: Acute Plan 63-year-old female with past medical history including gastroparesis status post gastric pacemaker, type 2 diabetes, hypertension, right BKA in backdrop of diabetes presents with worsening abdominal pain over the last 4 days. She also notes persistent diarrhea that is nonbloody. In the emergency room initial CT scan suggestive of mild colitis; 1.Colitis -Levaquin/Flagyl (2) -advance diet to full liquids -supplemental IV fluids until taking adequate p.o. -GI panel unremarkable; C diff pending -morphine/oxycodone for pain 2. Diabetes type 2 -acceptable control on current therapies -lispro correctional scale -adjust as indicated 3.CAD -stable and well compensated; no acute issues at this time -continue outpatient therapies Full code Lovenox Patient will require at least 2 midnights going forward to treat colitis with IV antibiotics; requiring restricted diet will require IV volume repletion. This can not be achieved a lesser acute setting Quality Stroke Does the patient have a stroke diagnosis?: No VTE Prior VTE?: No VTE Risk Level:: Medical - moderate - high VTE Device Contraindication: Treatment Not Indicated VTE Drug Contraindication: N/A - Med Ordered
[2023-07-02 15:33] VITALS: BP 140/62; PULSE 59; RESP 16; TEMP 36.6; O2SAT 98
--- NOTE | 2023-07-02 16:22 | MHC.CM.PN ---
CM ATTEMPTED TO SEE PT WHO WAS RECEIVING RN CARE CM TO REVISIT
[2023-07-02 16:35] LABS: Glucose, Whole Blood 146 mg/dL (60-115)
[2023-07-02 19:28] VITALS: BP 136/62; PULSE 65; RESP 16; TEMP 37.1; O2SAT 97
[2023-07-02] MEDS: Atorvastatin Calcium 80 MG TABLET PO (20:16)
[2023-07-02] MEDS: Amitriptyline HCl 50 MG TABLET PO (20:16)
[2023-07-02] MEDS: Losartan Potassium 50 MG TABLET 100 MG PO (20:16)
[2023-07-02 20:45] LABS: Glucose, Whole Blood 145 mg/dL (60-115)
[2023-07-03 03:15] VITALS: BP 133/67; PULSE 62; RESP 18; TEMP 36.9; O2SAT 96
[2023-07-03] MEDS: metroNIDAZOLE/NS 500 MG/100 ML PIGGYBACK 100 MG IV ×3 (04:15→20:11)
[2023-07-03] MEDS: levoFLOXacin/D5W 500 MG/100 ML PIGGYBACK 100 MG IV (05:16)
[2023-07-03] MEDS: Omeprazole 20 MG CAPSULE.DR PO ×2 (05:16→16:30)
[2023-07-03 05:31] LABS: MANUAL DIFF FLAG NO
[2023-07-03 05:39] LABS: Basophils Percent Auto 0.3 % (0-2); Eosinophils Absolute Auto 0.3 X10*3/uL (0.0-0.4); Eosinophils Percent Auto 3.7 % (0-4); Hematocrit 26.4 % (37.0-47.0); Hemoglobin 8.7 g/dl (12.0-16.0); Imm Gran Abs Auto 0.01 X10*3/uL (0.00-0.03); Imm Gran Pct Auto 0.1 % (0.0-0.4); Lymphocytes Absolute Auto 2.4 X10*3/uL (1.2-4.9); Lymphocytes Percent Auto 36.1 % (20-40); Mean Corpuscular Hemoglobin 32.1 pg (27.0-33.0); Mean Corpuscular Volume 97.4 fL (80.0-98.0); Mean Platelet Volume 10.6 fL (9.4-12.3); Monocytes Absolute Auto 0.7 X10*3/uL (0.1-1.2); Monocytes Percent Auto 10.7 % (2-11); Neutrophils Absolute Auto 3.3 x10*3/uL (2.0-8.3); Neutrophils Percent Auto 49.1 % (45-73); Platelet Count 162 X10*3/uL (160-400); Red Blood Count 2.71 X10*6/uL (4.20-5.50); Red Cell Distribution Width 12.5 % (11.0-16.0); White Blood Count 6.7 X10*3/uL (4.8-10.8)
[2023-07-03 05:57] LABS: Alanine Aminotransferase 10 U/L (0-31); Albumin Level 3.4 g/dL (3.5-5.0); Alkaline Phosphatase 57 U/L (39-117); Anion Gap 10 (12-20); Aspartate Amino Transferase 16 U/L (5-31); Bilirubin Total 0.3 mg/dL (0.0-1.0); Blood Urea Nitrogen 10 mg/dL (9-16); Carbon Dioxide 24 mmol/L (22-29); Chloride 109 mmol/L (96-108); Creatinine Clr Calc Pharmacy 73.2; Estimated Glomerular Filt Rate > 60; Glucose Fasting 129 mg/dL (60-99); Potassium 3.9 mmol/L (3.3-5.1); Sodium 139 mmol/L (135-145); Total Protein 6.1 g/dL (6.5-8.0)
[2023-07-03 07:26] LABS: Glucose, Whole Blood 134 mg/dL (60-115)
[2023-07-03 07:28] VITALS: BP 138/64; PULSE 60; RESP 12; TEMP 36.3; O2SAT 94
[2023-07-03] MEDS: Morphine Sulfate 4 MG/ML CARTRIDGE IVPUSH ×3 (07:48→21:12)
[2023-07-03] MEDS: Topiramate 100 MG TABLET PO ×2 (08:13→20:11)
[2023-07-03] MEDS: Isosorbide Mononitrate 30 MG TAB.ER.24H PO (08:13)
[2023-07-03] MEDS: Gabapentin 100 MG CAPSULE PO ×3 (08:13→20:11)
[2023-07-03] MEDS: Enoxaparin Sodium 40 MG/0.4 ML SYRINGE SUBCUT (08:13)
[2023-07-03] MEDS: Aspirin Enteric Coated 81 MG TABLET.DR PO (08:13)
[2023-07-03] MEDS: Metoprolol Succinate ER 100 MG TAB.ER.24H PO ×2 (08:13→20:11)
[2023-07-03] MEDS: amLODIPine Besylate 10 MG TABLET PO (08:13)
[2023-07-03] MEDS: 0.9 % Sodium Chloride Flush 3 ML SYRINGE IVFLUSH ×2 (08:14→15:04)
[2023-07-03] MEDS: Tamsulosin HCL 0.4 MG CAPSULE PO (11:08)
[2023-07-03 11:19] LABS: Glucose, Whole Blood 166 mg/dL (60-115)
[2023-07-03] MEDS: Insulin Lispro 100 UNIT/ML 3 ML VIAL SUBCUT ×2 (11:32→16:30)
--- NOTE | 2023-07-03 11:58 | MHC.CLN ---
NUTRITION DIET CHANGED TO DIABETIC 1800 KCAL.
--- NOTE | 2023-07-03 12:34 | MHC.CM.PN ---
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
--- NOTE | 2023-07-03 14:44 | HO.PM.IMPN ---
Subjective Subjective Date of Service: 07/03/23 Interval History: No acute issues overnight. Essentially no change in abdominal discomfort Review of Systems nausea ,abdominal pain and diarrhea Denies any chest pain or shortness a breath Physical Exam Vital Signs: Vital Signs: Last Vital Signs Temp 97.4 F 07/03/23 07:28 Pulse 60 07/03/23 07:28 Resp 12 07/03/23 07:28 BP 138/64 07/03/23 07:28 Pulse Ox 94 07/03/23 07:28 O2 Del Method Room Air 07/03/23 07:28 BMI result Body Mass Index 28.4 Appearance: Alert.? Oriented X3.? cvs: [id number], [id number] , no murmur res: clear to auscultation ,no rhonchii or wheezing abd: no rebound or guarding ,nt,left lower quadrent pain, bs present. ext pulses present , no cyanosis . neuro: axo3 , nonfocal. Objective Data Active Medications Amitriptyline HCl (Amitriptyline Hcl 50 Mg Tablet) 50 mg PO BEDTIME [facility] Last Admin: 07/02/23 20:16 Dose: 50 mg Documented By: MEGA Amlodipine Besylate (Amlodipine Besylate 10 Mg Tablet) 10 mg PO DAILY [facility]; Protocol Last Admin: 07/03/23 08:13 Dose: 10 mg Documented By: MARI Aspirin (Aspirin Enteric Coated 81 Mg Tablet.) 81 mg PO DAILY [facility] Last Admin: 07/03/23 08:13 Dose: 81 mg Documented By: MARI Atorvastatin Calcium (Atorvastatin Calcium 80 Mg Tablet) 80 mg PO BEDTIME [facility] Last Admin: 07/02/23 20:16 Dose: 80 mg Documented By: MEGA Enoxaparin Sodium (Enoxaparin Sodium 40 Mg/0.4 Ml Syringe) 40 mg SUBCUT Q24H [facility] Last Admin: 07/03/23 08:13 Dose: 40 mg Documented By: MARI Ergocalciferol (Ergocalciferol (Vitamin D2) 1,250 Mcg Capsule) 1,250 mcg PO IRVER [facility] Last Admin: 07/02/23 11:01 Dose: 1,250 mcg Documented By: MARI Gabapentin (Gabapentin 100 Mg Capsule) 100 mg PO TID [facility] Last Admin: 07/03/23 08:13 Dose: 100 mg Documented By: MARI Glucose (Glucose Gel 15 Gm Gel..Gram.) 15 gm PO Q15M PRN; Protocol PRN Reason: per Hypoglycemia Standing Ord. Dextrose (D10) 250 mls @ 750 mls/hr IV Q15M PRN; Protocol PRN Reason: per Hypoglycemia Standing Ord. Levofloxacin (Levaquin) 500 mg in 100 mls @ 100 mls/hr IV Q24H [facility] Last Infusion: 07/03/23 06:38 Dose: Infused Documented By: MGEA Metronidazole (Flagyl) 500 mg in 100 mls @ 100 mls/hr IV Q8H [facility] Last Infusion: 07/03/23 13:55 Dose: Infused Documented By: MARI Insulin Human Lispro (Insulin Lispro 100 Unit/Ml 3 Ml Vial) 0 unit SUBCUT QIDACHS [facility]; Protocol Last Admin: 07/03/23 11:32 Dose: 2 unit Documented By: MARI Isosorbide Mononitrate (Isosorbide Mononitrate 30 Mg Tab.Er.24h) 30 mg PO DAILY [facility]; Protocol Last Admin: 07/03/23 08:13 Dose: 30 mg Documented By: MARI Lactulose (Lactulose 20 Gm/30 Ml Solution) 10 gm PO DAILY PRN PRN Reason: Constipation Losartan Potassium (Losartan Potassium 50 Mg Tablet) 100 mg PO BEDTIME [facility]; Protocol Last Admin: 07/02/23 20:16 Dose: 100 mg Documented By: MEGA Metoprolol Succinate (Metoprolol Succinate Er 100 Mg Tab.Er.24h) 100 mg PO BID [facility]; Protocol Last Admin: 07/03/23 08:13 Dose: 100 mg Documented By: MARI Morphine Sulfate (Morphine Sulfate 4 Mg/Ml Cartridge) 4 mg IVPUSH Q4H PRN; Protocol PRN Reason: Pain, Severe (Pain Scale 7-10) Last Admin: 07/03/23 12:51 Dose: 4 mg Documented By: KARINA Nitroglycerin (Nitroglycerin 0.4 Mg Tab.Subl) 0.4 mg SUBLINGUAL Q5M PRN PRN Reason: Chest Pain Omeprazole (Omeprazole 20 Mg Capsule.Dr) 20 mg PO BID@0630,1630 [facility] Last Admin: 07/03/23 05:16 Dose: 20 mg Documented By: MEGA Oxycodone HCl (Oxycodone Hcl Immed Release 5 Mg Tablet) 5 mg PO Q4H PRN PRN Reason: Pain, Moderate(Pain Scale 4-6) Sodium Chloride (0.9 % Sodium Chloride Flush 3 Ml Syringe) 3 ml IVFLUSH QSHIFT [facility] Last Admin: 07/03/23 08:14 Dose: 3 ml Documented By: MARI Topiramate (Topiramate 100 Mg Tablet) 100 mg PO BID [facility] Last Admin: 07/03/23 08:13 Dose: 100 mg Documented By: MARI Labs 07/03/23 05:01 07/03/23 05:01 Labs: Laboratory Results - last 24 hr 07/02/23 07/02/23 07/03/23 16:17 20:39 05:01 MCV 97.4 MCH 32.1 MCHC 33.0 RDW 12.5 Plt Count 162 MPV 10.6 Immature Gran % (Auto) 0.1 Neut % (Auto) 49.1 Lymph % (Auto) 36.1 [place] % (Auto) 10.7 Eos % (Auto) 3.7 Baso % (Auto) 0.3 Lymph # (Auto) 2.4 [place] # (Auto) 0.7 Eos # (Auto) 0.3 Baso # (Auto) 0.0 Abs Immat Gran (auto) 0.01 Absolute Neuts (auto) 3.3 Absolute Nucleated RBC 0.000 Nucleated RBC % (auto) 0.0 Anion Gap 10 L Estim Creat Clear Calc 73.2 Estimated GFR > 60 POC Glucose 146 H 145 H Fasting Glucose 129 H Calcium 9.0 Total Bilirubin 0.3 AST 16 ALT 10 Alkaline Phosphatase 57 Total Protein 6.1 L Albumin 3.4 L 07/03/23 07/03/23 07:21 11:13 MCV MCH MCHC RDW Plt Count MPV Immature Gran % (Auto) Neut % (Auto) Lymph % (Auto) [place] % (Auto) Eos % (Auto) Baso % (Auto) Lymph # (Auto) [place] # (Auto) Eos # (Auto) Baso # (Auto) Abs Immat Gran (auto) Absolute Neuts (auto) Absolute Nucleated RBC Nucleated RBC % (auto) Anion Gap Estim Creat Clear Calc Estimated GFR POC Glucose 134 H 166 H Fasting Glucose Calcium Total Bilirubin AST ALT Alkaline Phosphatase Total Protein Albumin Microbiology Microbiology Results: Microbiology 07/01/23 06:10 Blood Culture - Preliminary Blood - Venous No growth after 48 hours. 07/01/23 05:18 Blood Culture - Preliminary Blood - Venous No growth after 48 hours. Assessment and Plan (1) Colitis: Status: Acute (2) Diabetes type 2 with atherosclerosis of arteries of extremities: Status: Acute Plan 63-year-old female with past medical history including gastroparesis status post gastric pacemaker, type 2 diabetes, hypertension, right BKA in backdrop of diabetes presents with worsening abdominal pain over the last 4 days. She also notes persistent diarrhea that is nonbloody. In the emergency room initial CT scan suggestive of mild colitis; 1.Colitis little improvement -still has pain and nausea. -Levaquin/Flagyl (2) -advance diet to full liquids -supplemental IV fluids until taking adequate p.o. -GI panel unremarkable; C diff pending -morphine/oxycodone for pain 2. Diabetes type 2 -acceptable control on current therapies -lispro correctional scale -adjust as indicated 3.CAD -stable and well compensated; no acute issues at this time -continue outpatient therapies Full code Lovenox Patient will require ongoing hospitlisation need : treat colitis with IV antibiotics; requiring restricted diet will require IV volume repletion. This can not be achieved a lesser acute setting Quality Stroke Does the patient have a stroke diagnosis?: No VTE Prior VTE?: No VTE Risk Level:: Medical - moderate - high VTE Device Contraindication: Treatment Not Indicated VTE Drug Contraindication: N/A - Med Ordered
[2023-07-03 15:42] VITALS: BP 107/49; PULSE 61; RESP 12; TEMP 36.5; O2SAT 96
[2023-07-03 16:25] LABS: Glucose, Whole Blood 153 mg/dL (60-115)
[2023-07-03] MEDS: oxyCODONE HCl Immed Release 5 MG TABLET PO ×2 (16:30→20:10)
[2023-07-03 19:39] VITALS: BP 143/65; PULSE 60; RESP 18; TEMP 36.5; O2SAT 99
[2023-07-03 19:54] LABS: Glucose, Whole Blood 137 mg/dL (60-115)
[2023-07-03] MEDS: Losartan Potassium 50 MG TABLET 100 MG PO (20:10)
[2023-07-03] MEDS: Amitriptyline HCl 50 MG TABLET PO (20:11)
[2023-07-03] MEDS: Atorvastatin Calcium 80 MG TABLET PO (20:11)
[2023-07-04] MEDS: 0.9 % Sodium Chloride Flush 3 ML SYRINGE IVFLUSH ×4 (00:48→20:18)
[2023-07-04 03:49] VITALS: BP 131/63; PULSE 59; RESP 18; TEMP 36; O2SAT 94
[2023-07-04] MEDS: levoFLOXacin/D5W 500 MG/100 ML PIGGYBACK 100 MG IV (04:11)
[2023-07-04] MEDS: Morphine Sulfate 4 MG/ML CARTRIDGE IVPUSH ×3 (05:14→22:01)
[2023-07-04] MEDS: Omeprazole 20 MG CAPSULE.DR PO ×2 (05:15→17:10)
[2023-07-04] MEDS: metroNIDAZOLE/NS 500 MG/100 ML PIGGYBACK 100 MG IV ×3 (06:03→20:18)
[2023-07-04 06:57] LABS: Basophils Percent Auto 0.3 % (0-2); Hemoglobin 8.5 g/dl (12.0-16.0); Imm Gran Abs Auto 0.02 X10*3/uL (0.00-0.03); Imm Gran Pct Auto 0.3 % (0.0-0.4); MANUAL DIFF FLAG SCAN; Mean Corpuscular Hemoglobin 32.3 pg (27.0-33.0); PLT CLUMP 1; Red Blood Count 2.63 X10*6/uL (4.20-5.50); SCAN SMEAR FLAG 1
[2023-07-04 06:59] LABS: Eosinophils Absolute Auto 0.2 X10*3/uL (0.0-0.4); Eosinophils Percent Auto 2.4 % (0-4); Hematocrit 25.6 % (37.0-47.0); Lymphocytes Absolute Auto 2.4 X10*3/uL (1.2-4.9); Lymphocytes Percent Auto 31.1 % (20-40); Mean Corpuscular HGB Conc 33.2 g/dl (31.0-35.0); Mean Corpuscular Volume 97.3 fL (80.0-98.0); Mean Platelet Volume 11.4 fL (9.4-12.3); Monocytes Absolute Auto 0.9 X10*3/uL (0.1-1.2); Monocytes Percent Auto 11.4 % (2-11); Neutrophils Absolute Auto 4.1 x10*3/uL (2.0-8.3); Neutrophils Percent Auto 54.5 % (45-73); Red Cell Distribution Width 12.2 % (11.0-16.0)
[2023-07-04 07:13] LABS: Alanine Aminotransferase 8 U/L (0-31); Albumin Level 3.2 g/dL (3.5-5.0); Alkaline Phosphatase 51 U/L (39-117); Anion Gap 9 (12-20); Aspartate Amino Transferase 15 U/L (5-31); Bilirubin Total 0.2 mg/dL (0.0-1.0); Blood Urea Nitrogen 9 mg/dL (9-16); Calcium 8.9 mg/dL (8.4-10.2); Carbon Dioxide 22 mmol/L (22-29); Chloride 111 mmol/L (96-108); Creatinine Clr Calc Pharmacy 71.4; Estimated Glomerular Filt Rate > 60; Glucose Fasting 147 mg/dL (60-99); Potassium 4.1 mmol/L (3.3-5.1); Sodium 138 mmol/L (135-145); Total Protein 5.9 g/dL (6.5-8.0)
[2023-07-04 07:42] VITALS: BP 124/60; PULSE 61; RESP 18; TEMP 36.4; O2SAT 95
[2023-07-04 07:56] LABS: Glucose, Whole Blood 144 mg/dL (60-115)
[2023-07-04 08:07] LABS: White Blood Count 7.6 X10*3/uL (4.8-10.8)
[2023-07-04 08:08] LABS: Platelet Count 134 X10*3/uL (160-400)
[2023-07-04 08:09] LABS: SLIDE REVIEW VERIFIED
[2023-07-04 08:15] VITALS: BP 124/60; PULSE 61; O2SAT 95
[2023-07-04] MEDS: Topiramate 100 MG TABLET PO ×2 (09:23→20:17)
[2023-07-04] MEDS: Gabapentin 100 MG CAPSULE PO ×3 (09:23→20:17)
[2023-07-04] MEDS: Aspirin Enteric Coated 81 MG TABLET.DR PO (09:23)
[2023-07-04] MEDS: Metoprolol Succinate ER 100 MG TAB.ER.24H PO ×2 (09:23→20:16)
[2023-07-04] MEDS: amLODIPine Besylate 10 MG TABLET PO (09:23)
[2023-07-04] MEDS: Isosorbide Mononitrate 30 MG TAB.ER.24H PO (09:23)
[2023-07-04] MEDS: Enoxaparin Sodium 40 MG/0.4 ML SYRINGE SUBCUT (09:23)
[2023-07-04] MEDS: oxyCODONE HCl Immed Release 5 MG TABLET PO (09:41)
[2023-07-04 11:28] LABS: Glucose, Whole Blood 183 mg/dL (60-115)
[2023-07-04] MEDS: Insulin Lispro 100 UNIT/ML 3 ML VIAL SUBCUT ×2 (11:55→17:09)
--- NOTE | 2023-07-04 13:48 | P.PNIM_ITS ---
Subjective Subjective Date of Service: 07/04/23 Interval History: colitis Review of Systems has abd pain and nausea no fever or chills Physical Exam 2 Vital Signs: Vital Signs: Last Vital Signs Temp 97.5 F 07/04/23 07:42 Pulse 61 07/04/23 08:15 Resp 18 07/04/23 07:42 BP 124/60 07/04/23 08:15 Pulse Ox 95 07/04/23 08:15 O2 Del Method Room Air 07/04/23 07:42 BMI result Body Mass Index 28.4 Appearance: Alert.? Oriented X3.? cvs: [id number], [id number] , no murmur res: clear to auscultation ,no rhonchii or wheezing abd: no rebound or guarding ,nt,left lower quadrent pain, bs present. ext pulses present , no cyanosis . neuro: axo3 , nonfocal. Objective Data Active Medications Amitriptyline HCl (Amitriptyline Hcl 50 Mg Tablet) 50 mg PO BEDTIME [facility] Last Admin: 07/03/23 20:11 Dose: 50 mg Documented By: TANIKA Amlodipine Besylate (Amlodipine Besylate 10 Mg Tablet) 10 mg PO DAILY [facility]; Protocol Last Admin: 07/04/23 09:23 Dose: 10 mg Documented By: NEVAEH Aspirin (Aspirin Enteric Coated 81 Mg Tablet.) 81 mg PO DAILY [facility] Last Admin: 07/04/23 09:23 Dose: 81 mg Documented By: NEVAEH Atorvastatin Calcium (Atorvastatin Calcium 80 Mg Tablet) 80 mg PO BEDTIME [facility] Last Admin: 07/03/23 20:11 Dose: 80 mg Documented By: TANIKA Enoxaparin Sodium (Enoxaparin Sodium 40 Mg/0.4 Ml Syringe) 40 mg SUBCUT Q24H [facility] Last Admin: 07/04/23 09:23 Dose: 40 mg Documented By: NEVAEH Ergocalciferol (Ergocalciferol (Vitamin D2) 1,250 Mcg Capsule) 1,250 mcg PO RIVER [facility] Last Admin: 07/02/23 11:01 Dose: 1,250 mcg Documented By: GRAZLIVE Gabapentin (Gabapentin 100 Mg Capsule) 100 mg PO TID [facility] Last Admin: 07/04/23 09:23 Dose: 100 mg Documented By: NEVAEH Glucose (Glucose Gel 15 Gm Gel..Gram.) 15 gm PO Q15M PRN; Protocol PRN Reason: per Hypoglycemia Standing Ord. Dextrose (D10) 250 mls @ 750 mls/hr IV Q15M PRN; Protocol PRN Reason: per Hypoglycemia Standing Ord. Levofloxacin (Levaquin) 500 mg in 100 mls @ 100 mls/hr IV Q24H [facility] Last Infusion: 07/04/23 06:04 Dose: Infused Documented By: ANTPRISCILLA Metronidazole (Flagyl) 500 mg in 100 mls @ 100 mls/hr IV Q8H [facility] Last Admin: 07/04/23 12:51 Dose: 100 mls/hr Documented By: NEVAEH Insulin Human Lispro (Insulin Lispro 100 Unit/Ml 3 Ml Vial) 0 unit SUBCUT QIDACHS [facility]; Protocol Last Admin: 07/04/23 11:55 Dose: 2 unit Documented By: NEVAEH Isosorbide Mononitrate (Isosorbide Mononitrate 30 Mg Tab.Er.24h) 30 mg PO DAILY [facility]; Protocol Last Admin: 07/04/23 09:23 Dose: 30 mg Documented By: NEVAEH Lactulose (Lactulose 20 Gm/30 Ml Solution) 10 gm PO DAILY PRN PRN Reason: Constipation Losartan Potassium (Losartan Potassium 50 Mg Tablet) 100 mg PO BEDTIME [facility]; Protocol Last Admin: 07/03/23 20:10 Dose: 100 mg Documented By: TANIKA Metoprolol Succinate (Metoprolol Succinate Er 100 Mg Tab.Er.24h) 100 mg PO BID [facility]; Protocol Last Admin: 07/04/23 09:23 Dose: 100 mg Documented By: NEVAEH Morphine Sulfate (Morphine Sulfate 4 Mg/Ml Cartridge) 4 mg IVPUSH Q4H PRN; Protocol PRN Reason: Pain, Severe (Pain Scale 7-10) Last Admin: 07/04/23 05:14 Dose: 4 mg Documented By: LORE Nitroglycerin (Nitroglycerin 0.4 Mg Tab.Subl) 0.4 mg SUBLINGUAL Q5M PRN PRN Reason: Chest Pain Omeprazole (Omeprazole 20 Mg Capsule.Dr) 20 mg PO BID@0630,1630 [facility] Last Admin: 07/04/23 05:15 Dose: 20 mg Documented By: HO.ANTOIC Oxycodone HCl (Oxycodone Hcl Immed Release 5 Mg Tablet) 5 mg PO Q4H PRN PRN Reason: Pain, Moderate(Pain Scale 4-6) Last Admin: 07/04/23 09:41 Dose: 5 mg Documented By: NEVAEH Sodium Chloride (0.9 % Sodium Chloride Flush 3 Ml Syringe) 3 ml IVFLUSH QSHIFT [facility] Last Admin: 07/04/23 09:24 Dose: 3 ml Documented By: NEVAEH Topiramate (Topiramate 100 Mg Tablet) 100 mg PO BID [facility] Last Admin: 07/04/23 09:23 Dose: 100 mg Documented By: NEVAEH Labs 07/04/23 06:16 07/04/23 06:16 Labs: Laboratory Results - last 24 hr 07/03/23 07/03/23 07/04/23 16:19 19:44 06:16 MCV 97.3 MCH 32.3 MCHC 33.2 RDW 12.2 Plt Count 134 L MPV 11.4 Immature Gran % (Auto) 0.3 Neut % (Auto) 54.5 Lymph % (Auto) 31.1 [place] % (Auto) 11.4 H Eos % (Auto) 2.4 Baso % (Auto) 0.3 Lymph # (Auto) 2.4 [place] # (Auto) 0.9 Eos # (Auto) 0.2 Baso # (Auto) 0.0 Abs Immat Gran (auto) 0.02 Absolute Neuts (auto) 4.1 Absolute Nucleated RBC 0.000 Nucleated RBC % (auto) 0.0 Smear Tech's Comments VERIFIED Anion Gap 9 L Estim Creat Clear Calc 71.4 Estimated GFR > 60 POC Glucose 153 H 137 H Fasting Glucose 147 H Calcium 8.9 Total Bilirubin 0.2 AST 15 ALT 8 Alkaline Phosphatase 51 Total Protein 5.9 L Albumin 3.2 L 07/04/23 07/04/23 07:40 11:20 MCV MCH MCHC RDW Plt Count MPV Immature Gran % (Auto) Neut % (Auto) Lymph % (Auto) [place] % (Auto) Eos % (Auto) Baso % (Auto) Lymph # (Auto) [place] # (Auto) Eos # (Auto) Baso # (Auto) Abs Immat Gran (auto) Absolute Neuts (auto) Absolute Nucleated RBC Nucleated RBC % (auto) Smear Tech's Comments Anion Gap Estim Creat Clear Calc Estimated GFR POC Glucose 144 H 183 H Fasting Glucose Calcium Total Bilirubin AST ALT Alkaline Phosphatase Total Protein Albumin Assessment and Plan (1) Colitis: Status: Acute Plan 63-year-old female with past medical history including gastroparesis status post gastric pacemaker, type 2 diabetes, hypertension, right BKA in backdrop of diabetes presents with worsening abdominal pain over the last 4 days. She also notes persistent diarrhea that is nonbloody. In the emergency room initial CT scan suggestive of mild colitis; 1.Colitis little improvement -still has pain and nausea. -Levaquin/Flagyl (2) -advance diet to full liquids -supplemental IV fluids until taking adequate p.o. -GI panel unremarkable; C diff pending -morphine/oxycodone for pain 2. Diabetes type 2 -acceptable control on current therapies -lispro correctional scale -adjust as indicated 3.CAD -stable and well compensated; no acute issues at this time -continue outpatient therapies Full code Lovenox Patient will require ongoing hospitlisation need : treat colitis with IV antibiotics; requiring restricted diet will require IV volume repletion. This can not be achieved a lesser acute setting Quality Stroke Does the patient have a stroke diagnosis?: No VTE Prior VTE?: No VTE Risk Level:: Medical - moderate - high VTE Device Contraindication: Treatment Not Indicated VTE Drug Contraindication: N/A - Med Ordered
--- NOTE | 2023-07-04 14:38 | MHC.CM.PN ---
The patient has been seen by P.T.. The recommendation is Home with services. [facility] has been referred to resume services at discharge. DP resume [facility]. Patients dtr will provide transportation home.
[2023-07-04 15:36] VITALS: BP 114/55; PULSE 65; RESP 16; TEMP 36.4; O2SAT 96
--- NOTE | 2023-07-04 15:47 | HO.WOUND ---
Wound Consult: Initial 63yr old? [place] [facility] [place] - See progress notes and H&P for detailed history.? Wound consult placed for Left Heel and Left Toes injuries present on admission.? Patient agreeable to assessment and photo documentation.? The patient reports she treats at [facility] with Ingrid Soriano the SPD MANAGER with in that facility. She reports she also sees a vascular surgeon however she is not able to recalll that providers name. Chart review reveals it is not Dr. Quach within [facility]. The patient reports she is scheduled for a vascular procedure to benefit the left heel wound in the near future. She phoned her daughter and she was able to confirm this information. She is advised to continue to treat with outpatient wound center for treatment topical recommendations and to continue followup with her Vascular provider for treatment options. If wound worsens here may consider referral to Dr. Quach for vascular assessment. Left Great Toe and 2nd toe with stable black dry eschar - goal is to keep stable and dry may paint with betadine and leave open to air or wrap with dry gauze. Left Heel Etiology: Diabetic Wound??Present on Admission Measurements: see charting for detailed measurements Wound Bed: moist dark red wound bed Drainage / Odor: serosang drainage - No odor noted Edges: ? macerated and purple pigmentation noted [place] wound: ?red pink blanchable erythema Fluctuance noted No Induration noted Pain: patient reports pain but tolerated dressing change and wound assessment Goals of Treatment: ? Durafiber for Moisture management and consider referral to Dr. Quach for assessment if wound bed worsens. Recommendations: 1. Turn and Reposition every 2 hours and as needed for patient comfort.? Use pillows or wedges to support off loading positions. 2. Off Load all bony prominences with use of pillows and heel boots if needed.? Apply Preventative foams where needed. ? 3. Monitor for incontinence and moisture control, use barrier creams when needed for prevention and treatment. 4. Provide adequate and supplemental nutrition.? 5. Order or Continue low air loss mattress. 6. When applicable maintain blood glucose levels per Providers order. 7. Left Toes - [place] with Betadine Daily. Leave open to air. 8. Left Heel - Cleanse with NS moist gauze, apply durafiber AG to wound bed cover with dry gaue ABD pad and gauze wrap. Change every other day. May reapply patients tubigrip stocking witch goes from below toes to just before bend in back of knee. Apply Heel Protector Boot to off load heel fro bed and recliner surface. Of note heel protect to not be worn with ambulation - patient states she does not ambulate at baseline. Re-consult wound care Nurse for wound deterioration or wound changes.
[2023-07-04 17:05] LABS: Glucose, Whole Blood 191 mg/dL (60-115)
[2023-07-04 19:15] VITALS: BP 119/57; PULSE 65; RESP 16; TEMP 36.5; O2SAT 96
[2023-07-04 20:12] LABS: Glucose, Whole Blood 137 mg/dL (60-115)
[2023-07-04] MEDS: Losartan Potassium 50 MG TABLET 100 MG PO (20:17)
[2023-07-04] MEDS: Amitriptyline HCl 50 MG TABLET PO (20:17)
[2023-07-04] MEDS: Atorvastatin Calcium 80 MG TABLET PO (20:17)
[2023-07-05 03:06] VITALS: BP 114/56; PULSE 60; RESP 16; TEMP 36; O2SAT 95
[2023-07-05] MEDS: metroNIDAZOLE/NS 500 MG/100 ML PIGGYBACK 100 MG IV (04:35)
[2023-07-05] MEDS: levoFLOXacin/D5W 500 MG/100 ML PIGGYBACK 100 MG IV (05:48)
[2023-07-05] MEDS: Omeprazole 20 MG CAPSULE.DR PO ×2 (05:48→16:06)
[2023-07-05] MEDS: Morphine Sulfate 4 MG/ML CARTRIDGE IVPUSH (06:20)
[2023-07-05 07:32] VITALS: BP 107/54; PULSE 58; RESP 18; TEMP 36.3; O2SAT 96
[2023-07-05 07:40] LABS: Glucose, Whole Blood 146 mg/dL (60-115)
[2023-07-05] MEDS: Topiramate 100 MG TABLET PO (08:15)
[2023-07-05] MEDS: Isosorbide Mononitrate 30 MG TAB.ER.24H PO (08:15)
[2023-07-05] MEDS: amLODIPine Besylate 10 MG TABLET PO (08:15)
[2023-07-05] MEDS: Aspirin Enteric Coated 81 MG TABLET.DR PO (08:15)
[2023-07-05] MEDS: Enoxaparin Sodium 40 MG/0.4 ML SYRINGE SUBCUT (08:15)
[2023-07-05] MEDS: Gabapentin 100 MG CAPSULE PO ×2 (08:15→16:06)
[2023-07-05] MEDS: Tamsulosin HCL 0.4 MG CAPSULE PO (09:34)
[2023-07-05 11:37] LABS: Glucose, Whole Blood 179 mg/dL (60-115)
[2023-07-05] MEDS: Insulin Lispro 100 UNIT/ML 3 ML VIAL SUBCUT ×2 (11:44→16:49)
[2023-07-05] MEDS: metroNIDAZOLE 500 MG TABLET PO (11:59)
--- NOTE | 2023-07-05 12:01 | MHC.CM.PN ---
EMR REVIEWED AND PER MD ROUNDS, PT MAY DC TODAY IF ABLE TO VOID AFTER REMOVAL OF F/C. CM WILL CONTINUE TO FOLLOW FOR ANY CHANGE TO DC PLAN/NEEDS.
[2023-07-05 14:58] VITALS: BP 132/65; PULSE 65; RESP 16; TEMP 36.6; O2SAT 97
--- NOTE | 2023-07-05 15:58 | HO.PM.IMPN ---
Subjective Subjective Date of Service: 07/05/23 Interval History: colitis ,urinary retetntion Review of Systems abd pain seems to be improving urinary retention-garcia discontinued -did not urinate much Physical Exam Vital Signs: Vital Signs: Last Vital Signs Temp 97.8 F 07/05/23 14:58 Pulse 65 07/05/23 14:58 Resp 16 07/05/23 14:58 BP 132/65 07/05/23 14:58 Pulse Ox 97 07/05/23 14:58 O2 Del Method Room Air 07/05/23 14:58 BMI result Body Mass Index 28.4 Appearance: Alert.? Oriented X3.? cvs: rrr, [id number] , no murmur res: clear to auscultation ,no rhonchii or wheezing abd: no rebound or guarding ,nt,left lower quadrent pain, bs present. ext pulses present , no cyanosis . neuro: axo3 , nonfocal. Objective Data Active Medications Amitriptyline HCl (Amitriptyline Hcl 50 Mg Tablet) 50 mg PO BEDTIME [facility] Last Admin: 07/04/23 20:17 Dose: 50 mg Documented By: MEGA Amlodipine Besylate (Amlodipine Besylate 10 Mg Tablet) 10 mg PO DAILY [facility]; Protocol Last Admin: 07/05/23 08:15 Dose: 10 mg Documented By: PADMINI Aspirin (Aspirin Enteric Coated 81 Mg Tablet.) 81 mg PO DAILY [facility] Last Admin: 07/05/23 08:15 Dose: 81 mg Documented By: PADMINI Atorvastatin Calcium (Atorvastatin Calcium 80 Mg Tablet) 80 mg PO BEDTIME [facility] Last Admin: 07/04/23 20:17 Dose: 80 mg Documented By: MEGA Enoxaparin Sodium (Enoxaparin Sodium 40 Mg/0.4 Ml Syringe) 40 mg SUBCUT Q24H [facility] Last Admin: 07/05/23 08:15 Dose: 40 mg Documented By: PADMINI Ergocalciferol (Ergocalciferol (Vitamin D2) 1,250 Mcg Capsule) 1,250 mcg PO RIVER [facility] Last Admin: 07/02/23 11:01 Dose: 1,250 mcg Documented By: GRAZLIVE Gabapentin (Gabapentin 100 Mg Capsule) 100 mg PO TID [facility] Last Admin: 07/05/23 08:15 Dose: 100 mg Documented By: PADMINI Glucose (Glucose Gel 15 Gm Gel..Gram.) 15 gm PO Q15M PRN; Protocol PRN Reason: per Hypoglycemia Standing Ord. Dextrose (D10) 250 mls @ 750 mls/hr IV Q15M PRN; Protocol PRN Reason: per Hypoglycemia Standing Ord. Insulin Human Lispro (Insulin Lispro 100 Unit/Ml 3 Ml Vial) 0 unit SUBCUT QIDACHS [facility]; Protocol Last Admin: 07/05/23 11:44 Dose: 2 unit Documented By: PADMINI Isosorbide Mononitrate (Isosorbide Mononitrate 30 Mg Tab.Er.24h) 30 mg PO DAILY [facility]; Protocol Last Admin: 07/05/23 08:15 Dose: 30 mg Documented By: PADMINI Lactulose (Lactulose 20 Gm/30 Ml Solution) 10 gm PO DAILY PRN PRN Reason: Constipation Levofloxacin (Levofloxacin 500 Mg Tablet) 500 mg PO Q24H [facility] Losartan Potassium (Losartan Potassium 50 Mg Tablet) 100 mg PO BEDTIME [facility]; Protocol Last Admin: 07/04/23 20:17 Dose: 100 mg Documented By: MEGA Metoprolol Succinate (Metoprolol Succinate Er 100 Mg Tab.Er.24h) 100 mg PO BID [facility]; Protocol Last Admin: 07/05/23 07:36 Dose: Not Given Documented By: PADMINI Non-Admin Reason: low HR Metronidazole (Metronidazole 500 Mg Tablet) 500 mg PO Q8H [facility] Last Admin: 07/05/23 11:59 Dose: 500 mg Documented By: PADMINI Morphine Sulfate (Morphine Sulfate 4 Mg/Ml Cartridge) 4 mg IVPUSH Q4H PRN; Protocol PRN Reason: Pain, Severe (Pain Scale 7-10) Last Admin: 07/05/23 06:20 Dose: 4 mg Documented By: MEGA Nitroglycerin (Nitroglycerin 0.4 Mg Tab.Subl) 0.4 mg SUBLINGUAL Q5M PRN PRN Reason: Chest Pain Omeprazole (Omeprazole 20 Mg Capsule.Dr) 20 mg PO BID@0630,1630 [facility] Last Admin: 07/05/23 05:48 Dose: 20 mg Documented By: MEGA Sodium Chloride (0.9 % Sodium Chloride Flush 3 Ml Syringe) 3 ml IVFLUSH QSHIFT [facility] Last Admin: 07/05/23 07:20 Dose: Not Given Documented By: PADMINI Non-Admin Reason: Previously Administered Tamsulosin HCl (Tamsulosin Hcl 0.4 Mg Capsule) 0.4 mg PO DAILY [facility] Last Admin: 07/05/23 09:34 Dose: 0.4 mg Documented By: PADMINI Topiramate (Topiramate 100 Mg Tablet) 100 mg PO BID [facility] Last Admin: 07/05/23 08:15 Dose: 100 mg Documented By: PADMINI Labs 07/04/23 06:16 07/04/23 06:16 Labs: Laboratory Results - last 24 hr 07/04/23 07/04/23 07/05/23 17:02 20:06 07:34 POC Glucose 191 H 137 H 146 H 07/05/23 11:25 POC Glucose 179 H Assessment and Plan (1) Colitis: Status: Acute Plan 63-year-old female with past medical history including gastroparesis status post gastric pacemaker, type 2 diabetes, hypertension, right BKA in backdrop of diabetes presents with worsening abdominal pain over the last 4 days. She also notes persistent diarrhea that is nonbloody. In the emergency room initial CT scan suggestive of mild colitis; Colitis little improvement -still has pain and nausea. -Levaquin/Flagyl (2) -advance diet to full liquids -supplemental IV fluids until taking adequate p.o. -GI panel unremarkable; C diff pending -morphine/oxycodone for pain 2. Diabetes type 2 -acceptable control on current therapies -lispro correctional scale -adjust as indicated 3.CAD -stable and well compensated; no acute issues at this time -continue outpatient therapies 4. Urinary retention: added flomax removed garcia ,she still could not urinate much has hx of urinary retention requiring garcia temporary (02/10/21) urology eval Full code Lovenox Patient will require ongoing hospitlisation need : treat colitis with IV antibiotics; requiring restricted diet will require IV volume repletion. This can not be achieved a lesser acute setting Quality Stroke Does the patient have a stroke diagnosis?: No VTE Prior VTE?: No VTE Risk Level:: Medical - moderate - high VTE Device Contraindication: Treatment Not Indicated VTE Drug Contraindication: N/A - Med Ordered
[2023-07-05] MEDS: 0.9 % Sodium Chloride Flush 3 ML SYRINGE IVFLUSH (16:07)
[2023-07-05 16:18] LABS: Glucose, Whole Blood 188 mg/dL (60-115)
--- NOTE | 2023-07-05 17:02 | PC.NURSE ---
1545_ Pt voided 25ml on commode, bladder scanned for 346ml Dr Escoto notified, no new orders at this time 1700- Pt up to commode and voided 500ml yellow urine- Dr Escoto in room and notified
--- NOTE | 2023-07-05 17:08 | P.CDIM_ITS ---
PROVIDER RESPONSE TEXT: To clarify, the appropriate diagnosis supported by the clinical indicators: Chronic stable condition QUERY TEXT: PHYSICIAN'S DOCUMENTATION REQUEST Date of Query: 07/05/2023 08:05 AM EDT Patient Name: Constanza Mcqueen Admit Date: 07/01/2023 Dear Eulogio Escoto, A review of the medical record indicates additional documentation may be needed. Please review below and update the documentation accordingly. Clinical Indicators: H&P 06/30 - CT done in the ER demonstrated mild gastric fold thickening possibly a mild gastritis. Prilosec Clarify which of the following accurately represents the acuity of the Gastritis: Acute Acute on chronic Chronic stable condition Other (explain) Clinically unable to determine (explain) Thank you, Ting Dow, CCS, CDIS Use of terms such as suspected, likely, concern for, or probable (associated with a specific diagnosi s that is being evaluated, monitored, or treated as if it exists) are acceptable and can be coded in the inpatient se tting, when documented at the time of discharge. Please use your independent medical judgment in providing your response. THIS QUERY IS PART OF THE PERMANENT MEDICAL RECORD
--- NOTE | 2023-07-05 17:08 | P.DS_ITS ---
DS: Providers Provider Date of Service: 07/05/23 Date of admission: 07/01/23 07:15 Date of discharge: 07/05/23 Primary care physician: Rafiq Zhong MD Consults: 07/01/23 13:23 Consult to Wound Care Routine Reason for consultation: open area to L heel and scabbed areas to L toes 07/03/23 10:57 Consult to Urology Routine Consulting Provider: Elio Osorio Reason for consultation: Urinary retention Has provider been notified: No Attending physician on discharge: Eulogio Escoto Discharging clinician: Eulogio Escoto DS: Diagnosis Discharge Diagnosis (1) Colitis: Status: Acute DS: Summary Hospital Course Hospital Course: 63 yo female with multiple medical problems including gastroparesis s/p gastric pacemaker, type 2 DM, cholelithiasis, HTN, anxiety, R BKA, recurrent bouts of abdominal pain, L heel ulcer that vascular surgery follows ischemic colitis who presents with c/o not having a BM for 4 days so she took a dose of lactulose and for once it actually worked. Now she has severe diarrhea, diffuse abdominal cramps and nausea. She notes she cannot stop having BMs. CT done in the ER demonstrated mild gastric fold thickening possibly a mild gastritis and also mild thickening of the transverse descending and sigmoid colon suggestive of colitis. Recently admitted 04/27 - 05/01 for proctocolitis. She states she felt fine at home until a few days prior to admission with the above complaints hospital course: Patient was admitted for colitis: CT abdomen showed mild gastritis, colitis - Started on IV Levaquin and Flagyl-C diff negative, blood culture negative. Patient seems to be improved with above management-going home with p.o. Levaquin and Flagyl. Please complete Levaquin 500 mg daily for 4 days and Flagyl for 500 p.o. b.i.d. for 4 days. patient does not complain any gastritis symptoms will add omeprazole for now. Mild urinary retention: Kam taken out and patient is urinating well, added Flomax, consider pcp outpatient. patient has possible hx of gasritis -on ppi chronically. going home with vna . plan: complete Levaquin 500 mg daily for 4 days and Flagyl for 500 p.o. b.i.d. for 4 days. continue Flomax as ordered , consider pcp outpatient,consider outpatient urology eval Above management discussed with the patient detail length she understand and in agreement with the above plan, time spent 40 minute. Time Attestation Total time managing care of this patient today: 40 mintues. Discharge Coordination Time (in mins): 40 min Quality: Safe Use of Opioids Does Pt have an Active Cancer Diagnosis on the Problem List?: No Quality: Stroke Does the patient have a stroke diagnosis?: No Physical Exam Vital Signs: Vital Signs: Last Vital Signs Temp 97.8 F 07/05/23 14:58 Pulse 65 07/05/23 14:58 Resp 16 07/05/23 14:58 BP 132/65 07/05/23 14:58 Pulse Ox 97 07/05/23 14:58 O2 Del Method Room Air 07/05/23 14:58 BMI result Body Mass Index 28.4 Appearance: Alert.? Oriented X3.? cvs: rrr, [id number] , no murmur res: clear to auscultation ,no rhonchii or wheezing abd: no rebound or guarding ,nt,nd, bs present. ext pulses present , no cyanosis . neuro: axo3 , nonfocal. DS: Data Data Completed and Pending Completed studies during hospitalization [Text1]: Procedures Excision of Right Large Intestine, Via Natural or Artificial Opening Endoscopic, Diagnostic (04/27/23) Labs on day of discharge: Laboratory Results - last 24 hr 07/04/23 07/05/23 07/05/23 20:06 07:34 11:25 POC Glucose 137 H 146 H 179 H 07/05/23 16:10 POC Glucose 188 H Preliminary micro results at discharge 07/01/23 06:10 Blood Culture - Preliminary Blood - Venous No growth after 48 hours. 07/01/23 05:18 Blood Culture - Preliminary Blood - Venous No growth after 48 hours. Imaging Chest x-ray: Radiologist's impression: ITS Impressions Abdomen/Pelvis CT 07/01/23 04:55 IMPRESSION: 1. Mild gastric fold thickening possibly a mild gastritis. There is also mild thickening of the transverse, descending and sigmoid colon. These findings are suggestive of a mild colitis. 2. Stable lower lung field pulmonary nodules. Fleischner guidelines were followed. Discharge Plan Discharge Anticipated Discharge Date/Time: 07/05/23 11:00 Patient Disposition: Home, Self-Care Discharge Diagnosis: colitis ,urinary retention Referrals: Tulio MELENDEZ [Outside] Rafiq Zhong MD [Primary Care Provider] - 1 Week Discharge Medications: New metronidazole 500 mg Tablet 500 mg PO BID Qty: 8 0RF levofloxacin 500 mg Tablet 500 mg PO Q24H Qty: 4 0RF tamsulosin 0.4 mg Capsule 0.4 mg PO DAILY Qty: 30 0RF Continued isosorbide mononitrate 30 mg Tablet Extended Release 24 Hr 30 mg PO DAILY omeprazole 20 mg Capsule,Delayed Release(Dr/Ec) 20 mg PO BID@0630,1630 topiramate 100 mg Tablet 100 mg PO BID nitroglycerin [Nitrostat] 0.4 mg Tablet, Sublingual 0.4 mg SUBLINGUAL Q5M PRN (Reason: Chest Pain) Rx Instructions: do not exceed 3 doses per episode ergocalciferol (vitamin D2) 1,250 mcg (50,000 unit) Capsule 1,250 mcg PO RIVER insulin glargine [Lantus Solostar U-100 Insulin] 100 unit/mL (3 mL) Insulin Pen 30 unit SUBCUT DAILY PRN (Reason: Hyperglycemia) amitriptyline 50 mg tablet 50 mg PO BEDTIME aspirin 81 mg tablet,delayed release (DR/EC) 81 mg PO DAILY atorvastatin 80 mg tablet 80 mg PO BEDTIME losartan 100 mg tablet 100 mg PO BEDTIME metoprolol succinate 100 mg tablet extended release 24 hr 100 mg PO BID gabapentin 100 mg capsule 100 mg PO TID lactulose 10 gram/15 mL solution 15 ml PO DAILY PRN (Reason: Constipation) amlodipine 10 mg tablet 10 mg PO DAILY Discharge Orders: Discharge Order (Routine); Ordered 07/05/23 Ordered By: Eulogio Escoto Diet: Advance to usual diet Activity on Discharge: As tolerated Stand Alone Forms: Patient Portal Discharge page Print Language: Icelandic Care Plan Goals: Patient was admitted for colitis: CT abdomen showed mild gastritis, colitis - Started on IV Levaquin and Flagyl-C diff negative, blood culture negative. Patient seems to be improved with above management-going home with p.o. Levaquin and Flagyl. Please complete Levaquin 500 mg daily for 4 days and Flagyl for 500 p.o. b.i.d. for 4 days. patient does not complain any gastritis symptoms will add omeprazole for now. Mild urinary retention: Kam taken out and patient is urinating well, added Flomax, consider pcp outpatient. Health Concerns: as above. Plan of Treatment: as above. Assessment: as above. Discharge Date/Time: 07/05/23 19:18
--- NOTE | 2023-07-06 13:32 | P.F2F_ITS ---
Service Date Service Date: 07/06/23 Encounter Date of encounter: 07/05/23 Encounter: Colitis, urinary retention Reasons for Services Signs and symptoms assessed: New signs worsening abdominal pain or fever or nausea vomiting or any sign of urinary retention. Reason for long term: medication management, medication treatment and teach disease management MD Overseeing Care: Rafiq Zhong Homebound: Leaving the home is medically contraindicated at this time without the asist of a device and/or another person due th the listed conditions above and below. Reason homebound: weakness related to hospital stay Homebound supporting statement: Patient is generalized weak post hospitalization stay has multiple comorbidities including colitis, urinary retention-patient need help to go to appointments, disease management, labs draws. Certification: Based on the above findings, I certify that this patient is confined to the home and needs intermittent long term care, physical therapy and/or speech therapy, or continues to need occupational therapy. The patient is under my care, and I have initiated the establishment of the plan of care. The patient will be followed by a physician who will periodically review the plan of care. Time Spent With Patient Time: Total time managing care of this patient today ____ minutes.
== END 2023-07-05 19:18 | disposition home or self-care (01) | DRG 249 ==
LOC: HO.ED 05:59 → HO.EDOVER 07:20 → HO.S3 08:01
PROVIDERS: Admitting Provider Hospitalist; Emergency Provider Emergency Medicine; PCP Internal Medicine; Visit Provider Internal Medicine
DX: K52.9 Noninfective gastroenteritis and colitis, unspecified (principal); E11.43 Type 2 diabetes mellitus with diabetic autonomic (poly)neuropathy; K31.84 Gastroparesis; N31.8 Other neuromuscular dysfunction of bladder; K29.50 Unspecified chronic gastritis without bleeding; R33.9 Retention of urine, unspecified; I25.10 Atherosclerotic heart disease of native coronary artery without angina pectoris; Z89.511 Acquired absence of right leg below knee; Z79.4 Long term (current) use of insulin; Z99.3 Dependence on wheelchair; Z96.82 Presence of neurostimulator; Z79.82 Long term (current) use of aspirin; Z79.899 Other long term (current) drug therapy
CPT/HCPCS: 36415; 74177; 80048; 80053; 80076; 81003; 82947; 83605; 83690; 83735; 84484; 85025; 87040; 93005; 97162; 99285; C1758; C9113; J1170; J1650; J1836; J1956; J2270; J2405; Q9967

== ENCOUNTER → 2023-07-01 03:25 | Outpatient (BNV) | payer MEDICAID, SELFPAY | PROVIDERS: Admitting Provider Hospitalist; Emergency Provider Emergency Medicine; PCP Internal Medicine; Visit Provider Internal Medicine Cardiovascular Disease | DX: I25.10 Atherosclerotic heart disease of native coronary artery without angina pectoris (principal); R94.31 Abnormal electrocardiogram [ECG] [EKG] | CPT/HCPCS: 93010 ==

== ENCOUNTER → 2023-07-01 07:15 | Outpatient (BNV) | payer MEDICAID, SELFPAY | PROVIDERS: Admitting Provider Hospitalist; Emergency Provider Emergency Medicine; PCP Internal Medicine; Visit Provider Hospitalist | DX: K52.9 Noninfective gastroenteritis and colitis, unspecified (principal) | CPT/HCPCS: 99223; 99232; 99233; 99239; G0180 ==

== ENCOUNTER 2023-08-26 09:23 | Emergency (ER) | payer MEDICAID, SELFPAY ==
[2023-08-26] VITALS (7 sets, daily range): BP systolic 139–191; BP diastolic 55–93; PULSE 61–74; RESP 15–18; TEMP 36.3–36.6; O2SAT 98–100; BMI 27.8
--- NOTE | ~2023-08-26 | CT_ITS ---
EXAMINATION: CT ABDOMEN AND PELVIS WITHOUT CONTRAST CLINICAL INFORMATION: Abdominal pain and constipation COMPARISON: 5 CT scans of the abdomen and pelvis since 2021 most recently on 06/30/2013 TECHNIQUE: Multidetector volumetric imaging was performed from the superior aspect of the liver through the pubic symphysis. Sagittal and coronal reformatted images were obtained on the technologist's workstation. This CT examination was performed using dose optimization techniques as appropriate, variously including the following: *Automated exposure control *Adjustment of mA and/or kV according to patient size (this includes techniques or standardized protocols for targeted exams where dose is matched to indication/reason for exam; i.e. extremities or head) *Use of iterative reconstruction technique DLP: 547 mGy-cm FINDINGS: LUNG BASES: [id number]-type nodularity at the lung bases is similar. No consolidations or effusions. Calcification the myocardium of the left ventricle is unchanged. LIVER, GALLBLADDER, AND BILIARY TREE: The liver is normal in size, shape, and attenuation. No focal hepatic lesion or biliary ductal dilatation is present. There is subtle pneumobilia which is new when compared to the prior study (3:20). The gallbladder is unremarkable with no evidence of radiopaque gallstones, gallbladder wall thickening, or obvious pericholecystic inflammatory changes. PANCREAS: Unremarkable. SPLEEN: Unremarkable. ADRENAL GLANDS: Unremarkable. KIDNEYS AND URETERS: The kidneys are normal in size, shape, and attenuation. No hydronephrosis, hydroureter, or calculi seen. No perinephric stranding. BLADDER: Unremarkable. GASTROINTESTINAL TRACT: There is a small hiatal hernia present. Previously seen mild sigmoid thickening is unchanged. No surrounding inflammatory change. This looks similar even when compared with the 2021 study The small and large bowel are unremarkable. The appendix is unremarkable. ABDOMINAL WALL: No significant hernia is appreciated. The gastric stimulator is present implanted in the anterior abdominal wall. LYMPH NODES: No retroperitoneal lymphadenopathy. VASCULAR: Extensive vascular calcification is seen. PELVIC VISCERA: Small anteverted uterus is present with some calcifications probably vascular. And abnormal adnexal mass or free intraperitoneal fluid is not seen OSSEOUS STRUCTURES: Degenerative changes again seen spine. Lytic lesion L4 vertebral body unchanged. CT/CT abdomen pelvis wo IV con IMPRESSION: 1. A cause for the patient's abdominal pain and constipation has not been found. 2. There is new subtle pneumobilia present. Gallbladder ultrasound may be useful. 3. Incidental note made of stable tree-in-bud nodularity at the lung bases, stable mild sigmoid thickening and other findings described above. Fleischner guidelines were followed.
--- NOTE | ~2023-08-26 | XR_ITS ---
EXAMINATION: XR ABDOMEN KUB CLINICAL INDICATION: Abdominal pain, constipation COMPARISON: CT abdomen and pelvis with contrast 07/01/2023 TECHNIQUE: AP view of the abdomen. FINDINGS: Again noted implanted stimulator device in the left anterior abdominal wall with intact leads. Surgical clips in the right mid abdomen. Scattered gas and stool throughout the colon. Nonobstructive bowel gas pattern. Moderate colonic stool burden. Vascular calcifications and multiple pelvic phleboliths. Osseous demineralization. Degenerative changes of the visualized spine. Included lung bases are clear. XR/XR KUB IMPRESSION: Nonobstructive bowel gas pattern. Moderate colonic stool burden.
--- NOTE | 2023-08-26 09:37 | ED_ITS ---
HPI - Abdominal Pain General Chief Complaint: Abdominal Pain Stated Complaint: ABD PAIN NAUSEA Time Seen by Provider: 08/26/23 09:35 Source: patient and RN notes reviewed Mode of arrival: ambulatory Limitations: no limitations History of Present Illness ED Provider: Eun Baxter PA-C HPI narrative: This is a 63-year-old female, with a history of gastroparesis s/p gastric pacemaker, type 2 DM, cholelithiasis, HTN, anxiety, R BKA, recurrent bouts of abdominal pain, L heel ulcer that vascular surgery follows ischemic colitis, who presents emergency department with complaints of constipation and abdominal pain x 6 days, worsening over the last 2 days. Patient states that she has not had a bowel movement in 6 days. She states that she was originally passing gas, has not passed any gas since yesterday. She denies any fevers, chills, chest pain, shortness for breath, or vomiting. She has been drinking less fluids due to her pain. She states that the abdominal pain is intermittent, and diffuse throughout her abdomen. She reports that she has a gastric pacemaker for gastroparesis denies any other surgeries. No other complaints or concerns at this time. MD elicited complaint: abdominal pain Pertinent past history: constipation Pain Consistency: constant Location: diffuse Severity: severe Quality: aching and fullness Radiation: none Migration to: no migration Associated symptoms: constipation Related Data Home Medications ?Medication ?Instructions ?Recorded ?Confirmed isosorbide mononitrate 30 mg 30 mg PO DAILY 05/12/20 07/01/23 tablet,extended release 24 hr omeprazole 20 mg capsule,delayed 20 mg PO BID@0630,1630 05/12/20 07/01/23 release topiramate 100 mg tablet 100 mg PO BID 05/12/20 07/01/23 ergocalciferol (vitamin D2) 1,250 1,250 mcg PO RIVER 07/15/21 07/01/23 mcg (50,000 unit) capsule nitroglycerin 0.4 mg sublingual 0.4 mg sublingual Q5M PRN Chest 07/15/21 07/01/23 tablet (Nitrostat) Pain insulin glargine 100 unit/mL (3 30 unit subcut DAILY PRN 07/22/21 07/01/23 mL) subcutaneous pen (Lantus Hyperglycemia Solostar U-100 Insulin) amitriptyline 50 mg tablet 50 mg PO BEDTIME 04/27/23 07/01/23 aspirin 81 mg tablet,delayed 81 mg PO DAILY 04/27/23 07/01/23 release atorvastatin 80 mg tablet 80 mg PO BEDTIME 04/27/23 07/01/23 gabapentin 100 mg capsule 100 mg PO TID 04/27/23 07/01/23 losartan 100 mg tablet 100 mg PO BEDTIME 04/27/23 07/01/23 metoprolol succinate 100 mg 100 mg PO BID 04/27/23 07/01/23 tablet,extended release 24 hr amlodipine 10 mg tablet 10 mg PO DAILY 07/01/23 07/01/23 lactulose 10 gram/15 mL oral 15 ml PO DAILY PRN Constipation 07/01/23 07/01/23 solution Previous Rx's ?Medication ?Instructions ?Recorded levofloxacin 500 mg tablet 500 mg PO Q24H #4 tabs 07/05/23 metronidazole 500 mg tablet 500 mg PO BID #8 tabs 07/05/23 tamsulosin 0.4 mg capsule 0.4 mg PO DAILY #30 caps 07/05/23 Allergies Allergy/AdvReac Type Severity Reaction Status Date / Time Penicillins [PENICILLINS] Allergy Mild HIVES Verified 08/26/23 09:35 clarithromycin [From Biaxin] Allergy Unknown HIVES Verified 08/26/23 09:35 penicillin V Allergy Unknown rash, Verified 08/26/23 09:35 throat tight bioxin Allergy Unknown Unknown Uncoded 08/26/23 09:35 penicillin Allergy Unknown Unknown Uncoded 08/26/23 09:35 Review of Systems Review of Systems Yes all other systems are reviewed and are negative Constitutional: Reports as per [facility] Past Medical History Attestation statement: The following information was validated with the patient. Medical History Diabetes type 2 with atherosclerosis of arteries of extremities Diabetic foot ulcer Diabetic neuropathy associated with diabetes mellitus due to underlying condition Hypotonic neurogenic bladder Delirium due to another medical condition Hyperglycemia Encephalopathy acute CVA (cerebral vascular accident) History of peptic ulcer disease Cholelithiasis Myocardial infarction Wheelchair bound Below knee amputation CAD (coronary artery disease) Chronic pain syndrome Depression Anxiety HTN (hypertension) Liver lesion History of gastrostomy tube placement Gastroparesis IDDM (insulin dependent diabetes mellitus) Surgical History History of back surgery Hx of BKA Family History Family History Father Coronary arteriosclerosis Social History Social History Household Members: None Housing: Apartment Are you a primary care support representative to a significant other at home: No Do you presently have visiting nurse or other home services: Yes Unable to assess alcohol history related to: Unable to respond Alcohol intake: former Comment: 1:1 sitter Patient Tobacco Use Status: Never used Tobacco Smoked in Last 30 Days: No Second Hand Smoke Exposure: No Use of substances other than those prescribed or required for medical reasons: No Advance Directives: Yes Advance Directives on File: Yes Advance Directives Date on File: 05/12/20 Do you have a plan to hurt others: No Plan Patient : No service: No Current occupational status: unemployed and disabled Physical Exam ED Vital Signs: Vital Signs - 24 hr 08/26/23 09:33 08/26/23 11:28 08/26/23 12:29 Temperature 97.8 F 97.7 F 97.4 F Pulse Rate 67 63 63 Respiratory Rate 16 15 16 Blood Pressure 172/68 H 172/68 H 167/61 H Pulse Oximetry 99 99 99 Oxygen Delivery Method Room Air Room Air Room Air 08/26/23 14:10 08/26/23 16:22 Temperature 97.8 F 97.8 F Pulse Rate 64 61 Respiratory Rate 16 16 Blood Pressure 168/55 H 191/90 H Pulse Oximetry 98 99 Oxygen Delivery Method Room Air Room Air BMI result Body Mass Index 27.8 Const General: cooperative, comfortable and no acute distress Orientation/consciousness: patient oriented x3 Limitations: no limitations [facility] Head: Yes normal to inspection, Yes normocephalic and Yes atraumatic Ears: hearing grossly normal bilaterally General nose exam: Normal external nose present Face and sinus: Yes normal facial exam Mouth: Normal oral and palatal mucosa present, oropharynx normal and moist mucous membranes Throat: Yes posterior oropharynx normal Eyes General: appearance normal, both eyes and all related structures Eyelids: Yes eyelids normal Conjunctivae: conjunctivae normal Sclerae: sclerae normal Pupils: Equal, round and reactive pupils present EOM: EOMs intact bilaterally Neck Neck: Yes normal visual inspection, Yes full ROM and Yes no lymphadenopathy Lymphatic: no lymphadenopathy noted Chest Chest palpation & inspection: normal inspection of the chest Resp Effort & Inspection: normal respiratory effort and able to speak in complete sentences Auscultation: clear to auscultation bilaterally, no crackles, no rales, no rhonchi and no wheezes Cardio Rate: regular rate Rhythm: regular rhythm Heart sounds: S1 normal heart sound present and S2 normal heart sound present GI Other: Abdomen is soft, with diffuse tenderness throughout, hypoactive bowel sounds present Inspection: Yes normal to inspection Skin General skin exam: no rashes or lesions noted Trauma: no lacerations or abrasions Wounds: no wounds Neuro General: patient oriented x3 and moves all extremities Cranial nerves: Yes Equal, round and reactive pupils present Extrem Other: R BKA noted General: Yes normal to inspection Right upper extremity: normal to inspection Left upper extremity: normal to inspection Left lower extremity: normal to inspection Course Reevaluation(s) Reevaluation #1: Patient had a bowel movement within the department, she is feeling much better. CT scan was ordered and is pending at this time. Time: 15:09 Reevaluation #2: Patient remains to be comfortable, she is asymptomatic and is feeling much better, CT scan of her abdomen still pending at this time. Sign-out given to my colleague, Raghu mendez pending CT scan Time: 16:30 Reevaluation #3: Patient received in sign-out at change of shift pending CT scan. Patient's CT scan shows no acute finding to explain her pain. It did show some pneumobilia. The patient has no right upper quadrant tenderness on exam. She is requesting discharge and will be discharged at this time. Time: 17:44 Medical Decision Making Medical Decision Making MDM Narrative: This is a 63-year-old female, with a history of gastroparesis s/p gastric pacemaker, type 2 DM, cholelithiasis, HTN, anxiety, R BKA, recurrent bouts of abdominal pain, L heel ulcer that vascular surgery follows ischemic colitis, who presents emergency department with complaints of constipation and abdominal pain. On arrival, patient mildly hypertensive at 172/68, all other vital signs within normal limits. Abdomen is soft, with diffuse tenderness throughout abdomen without any point tenderness. Hypoactive bowel sounds present in all 4 quadrants. She has had no vomiting, and she is able to eat and drink. Patient has been constipated for the last 6 days which is likely the source of her symptoms. Differential diagnoses include constipation, small bowel obstruction, bowel outlet syndrome, diverticulitis, diverticulosis. Plan: Labs, EKG, KUB, viral swabs, UA Differential Diagnosis Differential Diagnoses: The differential diagnosis associated with the presentation includes See above Admission/Observation Consideration of admission/observation: Escalation of care including admission/observation considered Escalation of care including admission/observation considered however given workup today not warranted at this time. Lab Data MDM Lab Attestation statement: I reviewed the patient's lab results. No leukocytosis, normocytic anemia noted with an H&H of 10.6/31, chemistry showing slight increase in BUN, she was given IV fluids, calcium slightly elevated at 10.7, troponin 5.5 08/26/23 12:30 08/26/23 12:30 Labs: Lab Results 08/26/23 08/26/23 08/26/23 Range/Units 09:34 10:43 11:59 WBC (4.8-10.8) X10*3/uL RBC (4.20-5.50) X10*6/uL Hgb (12.0-16.0) g/dl Hct (37.0-47.0) % MCV (80.0-98.0) fL MCH (27.0-33.0) pg MCHC (31.0-35.0) g/dl RDW (11.0-16.0) % Plt Count (160-400) X10*3/uL MPV (9.4-12.3) fL Immature Gran % (Auto) (0.0-0.4) % Neut % (Auto) (45-73) % Lymph % (Auto) (20-40) % Canadian % (Auto) (2-11) % Eos % (Auto) (0-4) % Baso % (Auto) (0-2) % Lymph # (Auto) (1.2-4.9) X10*3/uL Canadian # (Auto) (0.1-1.2) X10*3/uL Eos # (Auto) (0.0-0.4) X10*3/uL Baso # (Auto) (0.0-0.2) X10*3/uL Abs Immat Gran (auto) (0.00-0.03) X10*3/uL Absolute Neuts (auto) (2.0-8.3) x10*3/uL Absolute Nucleated RBC (0.0-0.012) X10*3/uL Nucleated RBC % (auto) (0.0-0.2) /100WBC Sodium (135-145) mmol/L Potassium (3.3-5.1) mmol/L Chloride (96-108) mmol/L Carbon Dioxide (22-29) mmol/L Anion Gap (12-20) BUN (9-16) mg/dL Creatinine (0.5-1.4) mg/dL Estim Creat Clear Calc Estimated GFR POC Glucose 70 (60-115) mg/dL Random Glucose (60-115) mg/dL Calcium (8.4-10.2) mg/dL Magnesium (1.6-2.6) mg/dL Total Bilirubin (0.0-1.0) mg/dL Direct Bilirubin (0.0-0.5) mg/dL AST (5-31) U/L ALT (0-31) U/L Alkaline Phosphatase (39-117) U/L Troponin I High Sens 5.5 D (<3.5-17.0) ng/L Total Protein (6.5-8.0) g/dL Albumin (3.5-5.0) g/dL Lipase (8-78) U/L Urine Color Yellow Urine Appearance Clear Urine pH 8.0 (5.0-9.0) Ur Specific [place] <= 1.005 (1.005-1.025) Urine Protein Trace (Neg-Trace) mg/dL Urine Glucose (UA) Negative (Negative) mg/dL Urine Ketones Negative (Negative) mg/dL Urine Blood Negative (Negative) Urine Nitrite Negative (Negative) Ur Leukocyte Esterase Negative (Negative) Influenza Type A (PCR) NEGATIVE (Negative) Influenza Type B (PCR) NEGATIVE (Negative) RSV RNA Qual (PCR) NEGATIVE (Negative) SARS-CoV-2 RNA (RT-PCR) NEGATIVE (Negative) 08/26/23 08/26/23 08/26/23 Range/Units 12:30 12:52 17:09 WBC 9.2 (4.8-10.8) X10*3/uL RBC 3.29 L D (4.20-5.50) X10*6/uL Hgb 10.6 L D (12.0-16.0) g/dl Hct 31.3 L D (37.0-47.0) % MCV 95.1 (80.0-98.0) fL MCH 32.2 (27.0-33.0) pg MCHC 33.9 (31.0-35.0) g/dl RDW 12.4 (11.0-16.0) % Plt Count 190 D (160-400) X10*3/uL MPV 10.6 (9.4-12.3) fL Immature Gran % (Auto) 0.2 (0.0-0.4) % Neut % (Auto) 73.0 (45-73) % Lymph % (Auto) 16.5 L (20-40) % Canadian % (Auto) 8.3 (2-11) % Eos % (Auto) 1.7 (0-4) % Baso % (Auto) 0.3 (0-2) % Lymph # (Auto) 1.5 (1.2-4.9) X10*3/uL Canadian # (Auto) 0.8 (0.1-1.2) X10*3/uL Eos # (Auto) 0.2 (0.0-0.4) X10*3/uL Baso # (Auto) 0.0 (0.0-0.2) X10*3/uL Abs Immat Gran (auto) 0.02 (0.00-0.03) X10*3/uL Absolute Neuts (auto) 6.7 (2.0-8.3) x10*3/uL Absolute Nucleated RBC 0.000 (0.0-0.012) X10*3/uL Nucleated RBC % (auto) 0.0 (0.0-0.2) /100WBC Sodium 143 (135-145) mmol/L Potassium 4.4 (3.3-5.1) mmol/L Chloride 109 H (96-108) mmol/L Carbon Dioxide 27 (22-29) mmol/L Anion Gap 11 L (12-20) BUN 17 H (9-16) mg/dL Creatinine 0.73 (0.5-1.4) mg/dL Estim Creat Clear Calc 77.4 Estimated GFR > 60 POC Glucose 61 66 (60-115) mg/dL Random Glucose 65 (60-115) mg/dL Calcium 10.7 H D (8.4-10.2) mg/dL Magnesium 1.9 (1.6-2.6) mg/dL Total Bilirubin 0.2 (0.0-1.0) mg/dL Direct Bilirubin < 0.2 (0.0-0.5) mg/dL AST 16 (5-31) U/L ALT 9 (0-31) U/L Alkaline Phosphatase 70 (39-117) U/L Troponin I High Sens (<3.5-17.0) ng/L Total Protein 8.2 H (6.5-8.0) g/dL Albumin 4.4 (3.5-5.0) g/dL Lipase 13 (8-78) U/L Urine Color Urine Appearance Urine pH (5.0-9.0) Ur Specific [place] (1.005-1.025) Urine Protein (Neg-Trace) mg/dL Urine Glucose (UA) (Negative) mg/dL Urine Ketones (Negative) mg/dL Urine Blood (Negative) Urine Nitrite (Negative) Ur Leukocyte Esterase (Negative) Influenza Type A (PCR) (Negative) Influenza Type B (PCR) (Negative) RSV RNA Qual (PCR) (Negative) SARS-CoV-2 RNA (RT-PCR) (Negative) Independent Interpretation I performed an independent interpretation of an: EKG Interpretation: EKG normal sinus rhythm at a ventricular rate of 64 beats per minute, RI interval 146, QTC 414, no ST elevation or depression. Radiology Impression Discussion of test interpretation with radiology: I have reviewed the radiologist's reading. Radiologist Impression: EXAMINATION: XR ABDOMEN KUB CLINICAL INDICATION: Abdominal pain, constipation COMPARISON: CT abdomen and pelvis with contrast 07/01/2023 TECHNIQUE: AP view of the abdomen. FINDINGS: Again noted implanted stimulator device in the left anterior abdominal wall with intact leads. Surgical clips in the right mid abdomen. Scattered gas and stool throughout the colon. Nonobstructive bowel gas pattern. Moderate colonic stool burden. Vascular calcifications and multiple pelvic phleboliths. Osseous demineralization. Degenerative changes of the visualized spine. Included lung bases are clear. XR/XR KUB IMPRESSION: Nonobstructive bowel gas pattern. Moderate colonic stool burden. Dictated By: MarlenaMichael Medications Administered Discontinued Medications Generic Name Dose Route Start Last Admin Trade Name Jaret PRN Reason Stop Dose Admin Acetaminophen 975 mg 08/26/23 14:35 08/26/23 14:55 Acetaminophen 325 Mg Tablet PO 08/26/23 14:36 975 mg ONCE ONE Administration Sodium Chloride 1,000 mls @ 999 mls/hr 08/26/23 09:58 08/26/23 14:55 Ns IV 08/26/23 10:58 0 mls/hr .Q1H1M ONE Infusion Ondansetron HCl 4 mg 08/26/23 11:44 08/26/23 11:54 Ondansetron Odt 4 Mg Tab.Rapdis TRANSLINGU 08/26/23 11:45 4 mg ONCE ONE Administration Discharge Plan Discharge Clinical Impression: Constipation Qualifiers: Constipation type: unspecified constipation type Qualified Code(s): K59.00 - Constipation, unspecified Patient Disposition: Home, Self-Care Instructions: Constipation (ED) Additional Instructions: You were seen in the emergency department due to abdominal pain and constipation. You are able to move your bowels and felt better. Your labs are reassuring, your x-ray does not show any obstruction, does show moderate stool burden. Your CT scan of your abdomen showed no acute process Please follow-up with your primary care physician regarding this visit. Eat a diet high in fiber as well as drink plenty of fluids. If any new or worsening symptoms occur including but not limited to worsening abdominal pain, chest pain, shortness of breath, blurred vision, dizziness, please return for re-evaluation. Prescriptions: No Action isosorbide mononitrate 30 mg Tablet Extended Release 24 Hr 30 mg PO DAILY omeprazole 20 mg Capsule,Delayed Release(Dr/Ec) 20 mg PO BID@0630,1630 topiramate 100 mg Tablet 100 mg PO BID nitroglycerin [Nitrostat] 0.4 mg Tablet, Sublingual 0.4 mg SUBLINGUAL Q5M PRN (Reason: Chest Pain) Rx Instructions: do not exceed 3 doses per episode ergocalciferol (vitamin D2) 1,250 mcg (50,000 unit) Capsule 1,250 mcg PO RIVER insulin glargine [Lantus Solostar U-100 Insulin] 100 unit/mL (3 mL) Insulin Pen 30 unit SUBCUT DAILY PRN (Reason: Hyperglycemia) amitriptyline 50 mg tablet 50 mg PO BEDTIME aspirin 81 mg tablet,delayed release (DR/EC) 81 mg PO DAILY atorvastatin 80 mg tablet 80 mg PO BEDTIME losartan 100 mg tablet 100 mg PO BEDTIME metoprolol succinate 100 mg tablet extended release 24 hr 100 mg PO BID gabapentin 100 mg capsule 100 mg PO TID lactulose 10 gram/15 mL solution 15 ml PO DAILY PRN (Reason: Constipation) amlodipine 10 mg tablet 10 mg PO DAILY metronidazole 500 mg Tablet 500 mg PO BID Qty: 8 0RF levofloxacin 500 mg Tablet 500 mg PO Q24H Qty: 4 0RF tamsulosin 0.4 mg Capsule 0.4 mg PO DAILY Qty: 30 0RF Print Language: Samoan
[2023-08-26 09:41] LABS: Glucose, Whole Blood 70 mg/dL (60-115)
--- NOTE | 2023-08-26 09:58 | ECG_ITS ---
Test Reason : ABDOMINAL PAIN Blood Pressure : / mmHG Vent. Rate : 064 BPM Atrial Rate : 064 BPM P-R Int : 146 ms QRS Dur : 098 ms QT Int : 402 ms P-R-T Axes : 062 056 -01 degrees QTc Int : 414 ms Normal sinus rhythm Cannot rule out Inferior infarct , age undetermined Abnormal ECG When compared with ECG of 01-JUL-2023 03:44, No significant change was found Referred By: Eun Baxter Electronically Signed By:VLADIMIR DICKEY MD
[2023-08-26 11:08] LABS: Appearance Urine Clear; Color Urine Yellow; Glucose Urine UA Negative (Negative); Leukocyte Esterase Urine Negative (Negative); Nitrite Urine Negative (Negative); Specific Gravity - Urine <= 1.005 (1.005-1.025); Urine Blood Negative (Negative); Urine Ketones Negative (Negative); Urine Protein Trace mg/dL (Neg-Trace)
[2023-08-26 11:47] LABS: Influenza A PCR NEGATIVE (Negative); Influenza B PCR NEGATIVE (Negative); Resp Syncy Virus RNA Qual PCR NEGATIVE (Negative); SARS COV2 PCR INHOUSE NEGATIVE (Negative)
[2023-08-26] MEDS: Ondansetron ODT 4 MG TAB.RAPDIS TRANSLINGU (11:54)
[2023-08-26] MEDS: 0.9 % Sodium Chloride 1,000 ML 999 ML IV (12:05)
--- NOTE | 2023-08-26 12:09 | PC.NURSE ---
u/s guided IV placed in LAC
[2023-08-26 12:31] LABS: Troponin-I High Sensitivity 5.5 ng/L (<3.5-17.0)
[2023-08-26 12:33] LABS: MANUAL DIFF FLAG NO
[2023-08-26 12:41] LABS: Basophils Percent Auto 0.3 % (0-2); Eosinophils Absolute Auto 0.2 X10*3/uL (0.0-0.4); Eosinophils Percent Auto 1.7 % (0-4); Hematocrit 31.3 % (37.0-47.0); Hemoglobin 10.6 g/dl (12.0-16.0); Imm Gran Abs Auto 0.02 X10*3/uL (0.00-0.03); Imm Gran Pct Auto 0.2 % (0.0-0.4); Lymphocytes Absolute Auto 1.5 X10*3/uL (1.2-4.9); Lymphocytes Percent Auto 16.5 % (20-40); Mean Corpuscular HGB Conc 33.9 g/dl (31.0-35.0); Mean Corpuscular Hemoglobin 32.2 pg (27.0-33.0); Mean Corpuscular Volume 95.1 fL (80.0-98.0); Mean Platelet Volume 10.6 fL (9.4-12.3); Monocytes Absolute Auto 0.8 X10*3/uL (0.1-1.2); Monocytes Percent Auto 8.3 % (2-11); Neutrophils Absolute Auto 6.7 x10*3/uL (2.0-8.3); Platelet Count 190 X10*3/uL (160-400); Red Blood Count 3.29 X10*6/uL (4.20-5.50); Red Cell Distribution Width 12.4 % (11.0-16.0); White Blood Count 9.2 X10*3/uL (4.8-10.8)
[2023-08-26 12:53] LABS: Alanine Aminotransferase 9 U/L (0-31); Albumin Level 4.4 g/dL (3.5-5.0); Alkaline Phosphatase 70 U/L (39-117); Anion Gap 11 (12-20); Aspartate Amino Transferase 16 U/L (5-31); Bilirubin Direct < 0.2 mg/dL (0.0-0.5); Bilirubin Total 0.2 mg/dL (0.0-1.0); Blood Urea Nitrogen 17 mg/dL (9-16); Calcium 10.7 mg/dL (8.4-10.2); Carbon Dioxide 27 mmol/L (22-29); Chloride 109 mmol/L (96-108); Creatinine Clr Calc Pharmacy 77.4; Estimated Glomerular Filt Rate > 60; Glucose Random 65 mg/dL (60-115); Lipase 13 U/L (8-78); Magnesium 1.9 mg/dL (1.6-2.6); Potassium 4.4 mmol/L (3.3-5.1); Sodium 143 mmol/L (135-145); Total Protein 8.2 g/dL (6.5-8.0)
[2023-08-26 13:02] LABS: Glucose, Whole Blood 61 mg/dL (60-115)
[2023-08-26] MEDS: Acetaminophen 325 MG TABLET 975 MG PO (14:55)
--- NOTE | 2023-08-26 16:00 | PC.NURSE ---
pt had a large BM, reports feeling 100% better
--- NOTE | 2023-08-26 17:09 | PC.NURSE ---
pt requested that this RN call her daughter to come pick her up, she reports that she no longer wants to wait for the result of her CT scan
[2023-08-26 17:13] LABS: Glucose, Whole Blood 66 mg/dL (60-115)
--- NOTE | 2023-08-26 17:58 | PC.NURSE ---
spoke with pts daughter who is on her way to come get her
== END 2023-08-26 19:51 | disposition home or self-care (01) ==
PROVIDERS: Physician Assistant Medical; Emergency Provider Emergency Medicine; PCP Internal Medicine
DX: K59.00 Constipation, unspecified (principal); E11.9 Type 2 diabetes mellitus without complications; I10 Essential (primary) hypertension; I25.2 Old myocardial infarction; Z03.818 Encounter for observation for suspected exposure to other biological agents ruled out; Z95.0 Presence of cardiac pacemaker; Z86.73 Personal history of transient ischemic attack (TIA), and cerebral infarction without residual deficits; Z79.82 Long term (current) use of aspirin; Z79.4 Long term (current) use of insulin
CPT/HCPCS: 0241U; 36415; 74018; 74176; 80048; 80076; 81003; 82947; 83690; 83735; 84484; 85025; 93005; 96360; 96361; 99284; 99285

== ENCOUNTER → 2023-08-26 09:58 | Outpatient (BNV) | payer MEDICAID, SELFPAY | PROVIDERS: Emergency Provider Emergency Medicine; PCP Internal Medicine; Visit Provider Internal Medicine Cardiovascular Disease | DX: R10.9 Unspecified abdominal pain (principal); R94.31 Abnormal electrocardiogram [ECG] [EKG] | CPT/HCPCS: 93010 ==

== ENCOUNTER 2023-10-25 22:15 | Emergency (ER) | payer MEDICAID, SELFPAY ==
--- NOTE | ~2023-10-25 | CT_ITS ---
EXAMINATION: CT ABDOMEN AND PELVIS WITH CONTRAST CLINICAL INFORMATION: Abdominal pain. Flank pain. Diarrhea. COMPARISON: 08/26/2023 TECHNIQUE: Multidetector volumetric images were obtained from the superior aspect of the liver through the pubic symphysis following administration 85 mL of Omnipaque 350 intravenous contrast. Sagittal and coronal reformatted images were obtained on the technologist's workstation. Oral contrast: No This CT examination was performed using dose optimization techniques as appropriate, variously including the following: *Automated exposure control *Adjustment of mA and/or kV according to patient size (this includes techniques or standardized protocols for targeted exams where dose is matched to indication/reason for exam; i.e. extremities or head) *Use of iterative reconstruction technique DLP: 753 mGy-cm FINDINGS: LUNG BASES: There are small adjacent pulmonary nodules the left lung base measuring up to 4 mm. LIVER, GALLBLADDER, AND BILIARY TREE: The liver is normal in size, shape, and attenuation. No focal hepatic lesion or biliary ductal dilatation is present. There is a small amount of intrahepatic biliary air similar to previous. The gallbladder is unremarkable with no evidence of radiopaque gallstones, gallbladder wall thickening, or obvious pericholecystic inflammatory changes. PANCREAS: Unremarkable. SPLEEN: Unremarkable. ADRENAL GLANDS: Unremarkable. KIDNEYS AND URETERS: The kidneys are normal in size, shape, and attenuation. No hydronephrosis, hydroureter, or calculi seen. Renal vascular calcification is noted. No perinephric stranding. BLADDER: Unremarkable. GASTROINTESTINAL TRACT: There is retained right and transverse colonic stool. There does appear to be mild distal descending and sigmoid colonic thickening. Decompressed bowel limits evaluation. ABDOMINAL WALL: No significant hernia is appreciated. LYMPH NODES: Normal. VASCULAR: There is atherosclerotic plaque of the abdominal aorta and branches. PELVIC VISCERA: Unremarkable. OSSEOUS STRUCTURES: Unremarkable. CT/CT abdomen pelvis w IV con IMPRESSION: 1. There does appear to be mild thickening of the distal descending and sigmoid colon. 2. Colitis a consideration. 3. Retained stool in the right and transverse colon. 4. Small adjacent pulmonary nodules left lung base measuring up to 4 mm. 5. Small amount of intrahepatic biliary air similar to previous. Fleischner guidelines were followed.
[2023-10-25 22:26] VITALS: BP 146/53; PULSE 61; RESP 18; TEMP 36.7; O2SAT 97
--- NOTE | 2023-10-25 22:27 | ED_ITS ---
HPI - General Adult General Chief complaint: Weakness Stated complaint: UTI,WEAKNESS Time Seen by Provider: 10/25/23 22:27 Source: patient and EMS Mode of arrival: EMS Limitations: no limitations History of Present Illness HPI narrative: Patient is a 63-year-old female who presents to the emergency department via EMS for evaluation. She reports that she is currently on antibiotics for urinary tract infection, states she has been taking the antibiotics for about 5 days and believes she has 1 pill left she is uncertain of which name it is. She admits to having constipation for the past 6 days, for which she took some medications to help her go uncertain which medications and since yesterday she has experienced diarrhea. Denies hematochezia or melena. She is experiencing diffuse lower abdominal pain, nausea without vomiting, and a poor appetite. She admits to having diffuse lower back pain as well. Having generalized weakness. She denies any fevers or chills. Denies any known sick contacts Related Data Home Medications ?Medication ?Instructions ?Recorded ?Confirmed isosorbide mononitrate 30 mg 30 mg PO DAILY 05/12/20 07/01/23 tablet,extended release 24 hr omeprazole 20 mg capsule,delayed 20 mg PO BID@0630,1630 05/12/20 07/01/23 release topiramate 100 mg tablet 100 mg PO BID 05/12/20 07/01/23 ergocalciferol (vitamin D2) 1,250 1,250 mcg PO RIVER 07/15/21 07/01/23 mcg (50,000 unit) capsule nitroglycerin 0.4 mg sublingual 0.4 mg sublingual Q5M PRN Chest 07/15/21 07/01/23 tablet (Nitrostat) Pain insulin glargine 100 unit/mL (3 30 unit subcut DAILY PRN 07/22/21 07/01/23 mL) subcutaneous pen (Lantus Hyperglycemia Solostar U-100 Insulin) amitriptyline 50 mg tablet 50 mg PO BEDTIME 04/27/23 07/01/23 aspirin 81 mg tablet,delayed 81 mg PO DAILY 04/27/23 07/01/23 release atorvastatin 80 mg tablet 80 mg PO BEDTIME 04/27/23 07/01/23 gabapentin 100 mg capsule 100 mg PO TID 04/27/23 07/01/23 losartan 100 mg tablet 100 mg PO BEDTIME 04/27/23 07/01/23 metoprolol succinate 100 mg 100 mg PO BID 04/27/23 07/01/23 tablet,extended release 24 hr amlodipine 10 mg tablet 10 mg PO DAILY 07/01/23 07/01/23 lactulose 10 gram/15 mL oral 15 ml PO DAILY PRN Constipation 07/01/23 07/01/23 solution Previous Rx's ?Medication ?Instructions ?Recorded levofloxacin 500 mg tablet 500 mg PO Q24H #4 tabs 07/05/23 metronidazole 500 mg tablet 500 mg PO BID #8 tabs 07/05/23 tamsulosin 0.4 mg capsule 0.4 mg PO DAILY #30 caps 07/05/23 Allergies Allergy/AdvReac Type Severity Reaction Status Date / Time Penicillins [PENICILLINS] Allergy Mild HIVES Verified 10/25/23 22:33 clarithromycin [From Biaxin] Allergy Unknown HIVES Verified 10/25/23 22:33 penicillin V Allergy Unknown rash, Verified 10/25/23 22:33 throat tight bioxin Allergy Unknown Unknown Uncoded 08/26/23 09:35 penicillin Allergy Unknown Unknown Uncoded 08/26/23 09:35 Review of Systems 2 Review of Systems: Yes all other systems are reviewed and are negative PMFSH Past Medical History Attestation statement: The following information was validated with the patient. Source: old records reviewed Medical History Diabetes type 2 with atherosclerosis of arteries of extremities Diabetic foot ulcer Diabetic neuropathy associated with diabetes mellitus due to underlying condition Hypotonic neurogenic bladder Delirium due to another medical condition Hyperglycemia Encephalopathy acute CVA (cerebral vascular accident) History of peptic ulcer disease Cholelithiasis Myocardial infarction Wheelchair bound Below knee amputation CAD (coronary artery disease) Chronic pain syndrome Depression Anxiety HTN (hypertension) Liver lesion History of gastrostomy tube placement Gastroparesis IDDM (insulin dependent diabetes mellitus) Surgical History History of back surgery Hx of BKA Family History Family History Father Coronary arteriosclerosis Social History Social History Household Members: None Housing: Apartment Are you a primary career placement services counselor to a significant other at home: No Do you presently have visiting nurse or other home services: Yes Unable to assess alcohol history related to: Unknown Alcohol intake: former Comment: 1:1 sitter Patient Tobacco Use Status: Never used Tobacco Smoked in Last 30 Days: No Second Hand Smoke Exposure: No Use of substances other than those prescribed or required for medical reasons: No Advance Directives: Yes Advance Directives on File: Yes Advance Directives Date on File: 05/12/20 Do you have a plan to hurt others: No Plan Patient : No service: No Current occupational status: unemployed and disabled Physical Exam ED Vital Signs: Vital Signs - 24 hr 10/25/23 22:26 Temperature 98.1 F Pulse Rate 61 Respiratory Rate 18 Blood Pressure 146/53 H Pulse Oximetry 97 Oxygen Delivery Method Room Air BMI result Body Mass Index 21.3 Appearance: Alert.?Oriented to person, place and time. No acute distress.?Normal affect. Eyes: Pupils equal, round and reactive to light.? ENT: Pharynx normal.?? Neck: Normal inspection.? Neck supple.?? CVS: Heart sounds normal. Normal heart rate and rhythm.? Pulses normal.?? Respiratory: No respiratory distress.? Lung sounds clear to auscultation bilaterally?? Abdomen: Soft a with diffuse lower abdominal tenderness upon palpation. No rigidity. No guarding. Bilateral CVA tenderness.. Normoactive bowel sounds. No pulsatile mass.?? Skin: Skin warm and dry.? Skin appears pale Extremities: No lower extremity edema.? Neuro: Moves all extremities spontaneously. Sensation intact bilaterally. Course Reevaluation(s) Reevaluation #1: Patient signed out to ED attending Dr. Man are pending CT and re-evaluation Medications Administered Discontinued Medications Generic Name Dose Route Start Last Admin Trade Name Freq PRN Reason Stop Dose Admin Ceftriaxone Sodium 1 gm/ 50 mls @ 100 mls/hr 10/26/23 01:25 10/26/23 01:46 Sodium Chloride IV 10/26/23 01:54 100 mls/hr ONCE ONE Administration Iohexol 85 ml 10/26/23 00:50 10/26/23 00:51 Iohexol 350 Mg/Ml 100 Ml Infus..Btl IV 10/26/23 00:51 85 ml ONCE ONE Administration Medical Decision Making Medical Decision Making MDM Narrative: Patient is a 63-year-old female with past medical history of type 2 diabetes, gastroparesis S/P gastric pacemaker, cholelithiasis, hypertension, anxiety, right BKA, recurrent abdominal pain, left heel ulcer, ischemic colitis who presents emergency department for evaluation of lower abdominal pain, diarrhea, recent UTI, back pain, weakness. I was able to make contact with her daughter Codie, she advises me that for the past month she has been battling a urinary tract infection. She was initially treated from a chemist instrumentation service goes to the home and consult with the doctor, she was provided with a 5 day course of antibiotics certain which antibiotic this was. She unfortunately continued to have symptoms. She was evaluated by her primary care doctor, Dr. Zhong with [facility] in [place] and was given a new antibiotic to take, she unfortunately does not recall this name either. Regarding her constipation daughter informs that she has Ex-Lax, stool softeners, MiraLax at home she is not certain which ones patient would have taken. She uses [facility] in [place] which is closed.Will obtain CBC to evaluate for leukocytosis/ anemia, CMP and lipase to evaluate for abnormal electrolytes /abnormal renal function/ abnormal hepatic/biliary function, CT of the abdomen and pelvis due to concern for pyelonephritis and Urinalysis. Differential Diagnosis Differential Diagnoses: The differential diagnosis associated with the presentation includes (Urinary tract infection, pyelonephritis, obstructive calculi, hydronephrosis, diverticulitis, colitis) Admission/Observation Consideration of admission/observation: Escalation of care including admission/observation considered Lab Data [facility] Lab Attestation statement: I reviewed the patient's lab results. CBC is without leukocytosis or left shift. Normocytic anemia consistent with baseline does not meet transfusion criteria. No thrombocytopenia. Creatinine at 1.3, over the past year has been <1, BUN 22. Viral panel Negative. 10/25/23 23:22 10/25/23 23:22 Labs: Lab Results 10/25/23 Range/Units 23:22 WBC 8.6 (4.8-10.8) X10*3/uL RBC 2.90 L (4.20-5.50) X10*6/uL Hgb 9.4 L (12.0-16.0) g/dl Hct 27.4 L (37.0-47.0) % MCV 94.5 (80.0-98.0) fL MCH 32.4 (27.0-33.0) pg MCHC 34.3 (31.0-35.0) g/dl RDW 12.7 (11.0-16.0) % Plt Count 211 (160-400) X10*3/uL MPV 9.9 (9.4-12.3) fL Immature Gran % (Auto) 0.2 (0.0-0.4) % Neut % (Auto) 60.1 (45-73) % Lymph % (Auto) 30.2 (20-40) % [place] % (Auto) 7.5 (2-11) % Eos % (Auto) 1.7 (0-4) % Baso % (Auto) 0.3 (0-2) % Lymph # (Auto) 2.6 (1.2-4.9) X10*3/uL [place] # (Auto) 0.6 (0.1-1.2) X10*3/uL Eos # (Auto) 0.2 (0.0-0.4) X10*3/uL Baso # (Auto) 0.0 (0.0-0.2) X10*3/uL Abs Immat Gran (auto) 0.02 (0.00-0.03) X10*3/uL Absolute Neuts (auto) 5.2 (2.0-8.3) x10*3/uL Absolute Nucleated RBC 0.000 (0.0-0.012) X10*3/uL Nucleated RBC % (auto) 0.0 (0.0-0.2) /100WBC Sodium 134 L (135-145) mmol/L Potassium 5.1 (3.3-5.1) mmol/L Chloride 105 (96-108) mmol/L Carbon Dioxide 23 (22-29) mmol/L Anion Gap 11 L (12-20) BUN 22 H (9-16) mg/dL Creatinine 1.31 (0.5-1.4) mg/dL Estim Creat Clear Calc 37.9 Estimated GFR 41 Random Glucose 105 (60-115) mg/dL Calcium 10.4 H (8.4-10.2) mg/dL Magnesium 2.0 (1.6-2.6) mg/dL Total Bilirubin 0.2 (0.0-1.0) mg/dL AST 19 (5-31) U/L ALT 10 (0-31) U/L Alkaline Phosphatase 68 (39-117) U/L Total Protein 7.6 (6.5-8.0) g/dL Albumin 4.2 (3.5-5.0) g/dL Lipase 10 (8-78) U/L Influenza Type A (PCR) NEGATIVE (Negative) Influenza Type B (PCR) NEGATIVE (Negative) RSV RNA Qual (PCR) NEGATIVE (Negative) SARS-CoV-2 RNA (RT-PCR) NEGATIVE (Negative) Radiology Impression Discussion of test interpretation with radiology: I have reviewed the radiologist's reading. Independent Historian Clinical information obtained from an independent historian. History obtained from or confirmed by: EMS and Other (Daughter as per narrative above) External Record Review External record reviewed: Outpatient record Discharge Plan Discharge Clinical Impression: Abdominal pain, Diarrhea Patient Disposition: Still a Patient Prescriptions: No Action isosorbide mononitrate 30 mg Tablet Extended Release 24 Hr 30 mg PO DAILY omeprazole 20 mg Capsule,Delayed Release(Dr/Ec) 20 mg PO BID@0630,1630 topiramate 100 mg Tablet 100 mg PO BID nitroglycerin [Nitrostat] 0.4 mg Tablet, Sublingual 0.4 mg SUBLINGUAL Q5M PRN (Reason: Chest Pain) Rx Instructions: do not exceed 3 doses per episode ergocalciferol (vitamin D2) 1,250 mcg (50,000 unit) Capsule 1,250 mcg PO RIVER insulin glargine [Lantus Solostar U-100 Insulin] 100 unit/mL (3 mL) Insulin Pen 30 unit SUBCUT DAILY PRN (Reason: Hyperglycemia) amitriptyline 50 mg tablet 50 mg PO BEDTIME aspirin 81 mg tablet,delayed release (DR/EC) 81 mg PO DAILY atorvastatin 80 mg tablet 80 mg PO BEDTIME losartan 100 mg tablet 100 mg PO BEDTIME metoprolol succinate 100 mg tablet extended release 24 hr 100 mg PO BID gabapentin 100 mg capsule 100 mg PO TID lactulose 10 gram/15 mL solution 15 ml PO DAILY PRN (Reason: Constipation) amlodipine 10 mg tablet 10 mg PO DAILY metronidazole 500 mg Tablet 500 mg PO BID Qty: 8 0RF levofloxacin 500 mg Tablet 500 mg PO Q24H Qty: 4 0RF tamsulosin 0.4 mg Capsule 0.4 mg PO DAILY Qty: 30 0RF Print Language: Citizen Of [place]
[2023-10-25 22:29] VITALS: BP 139/67; PULSE 80; O2SAT 98; BMI 21.3
--- OUTSIDE RECORDS SUMMARY | 2023-10-25 23:05 | XMS_ITS ---
Author Organization [facility] Address [address] [place] [id number] Care Team Providers Care Recording Studio Set Up Worker Name Role Phone Rafiq Zhong MD Primary Care Provider Ralph Wolf Unavailable [phone] Elia Blue Jr Unavailable REASON FOR VISIT COLITIS Encounters Encounter Location Date Provider Diagnosis [facility] Inpatient [address], [place] [id number] 04/28/2023 Elia Blue Jr PLAN OF TREATMENT No Information
--- OUTSIDE RECORDS SUMMARY | 2023-10-25 23:05 | XMS_ITS | Patient Health Record ---
Author Organization [facility] Address [address] [place] [id number] Care Team Providers Care Mandrel Cleaner Name Role Phone Rafiq Zhong MD Primary Care Provider Ralph Wolf Unavailable [phone] Elia Blue Jr Unavailable ALLERGIES Allergen (clinical drug ingredient) Drug/Non Drug Allergy documented on EMR Reaction Allergy Type Onset Date Status penicillin G Penicillin G Sodium Unknown Drug Allergy Active RESULTS Component Value Reference Range Notes Pathology Reviewed date:05/03/2023 08:01:17 AM Interpretation: Performing Lab:[facility], [address] [place] [id number] Notes/Report: REASON FOR REFERRAL No Information MEDICATIONS Medication SIG (Take, Route, Frequency, Duration) Notes Start Date End Date Status ALPRAZolam 1 MG (Schedule IV Drug) T ALLEN 1 T PO TID Oral for 28 Active HYDROmorphone HCl 4 MG (Schedule II Drug ) TAKE 1 T PO FID Oral for 28 Active Amitriptyline HCl Ac tive Gabapentin 300 MG TK 1 C PO TID Oral f or 30 Active Ktbslaawxq-FRTP-Tuymzvso 50-325-40 MG TAKE 1 TABLET BY MOUTH THREE TIMES A DAY Oral for 6 Active Senna 8.6 MG TK 2 TS PO QD Oral f or 30 Active Metoprolol Succinate ER 100 MG TK 1 T PO BID Oral for 30 Active Aspirin Low Dose 81 MG TK 1 T PO QD Oral for 30 Active Atorvastatin Calcium 80 MG TAKE 1 TABLET BY MOUTH ONCE DAILY Oral for 30 Active Losartan Potassium A ctive Isosorbide Mononitrate ER 30 MG TAKE 1 TABLET BY MOUTH ONCE DAILY. Oral for 30 Active Topiramate Active Promethazine HCl 25 MG TK 1 T PO TID PRN Oral for 7 Active Niacin ER (Antihyperlipidemic) 1000 MG TAKE 1 TABLET BY MOUTH ONCE DAILY Oral for 30 Active amLODIPine Besylate Active Omeprazole 20 MG Oral for 30 A ctive SOCIAL HISTORY Tobacco Use: Social History Observation Description Date Details (start date - stop date) Never Smoker NA - NA Sex Assigned At : Social History Observation Description Sex Assigned At Unknown Tobacco Use/Smoking Question Answer Notes Patient is a nonsmoker Alcohol Screen Question Answer Notes Did you have a drink containing alcohol in the p ast year? No Points 0 Interpretation Negative PROBLEMS Problem Type ICD Code Onset Dates Problem Status W/U Status Risk SNOMED Code Notes Problem Vomiting, nausea presence unspecified, unspecified intactability, vomiting of unspecified type (R11.10) Active confirmed 711815743 Problem Abnormal CT scan, liver (R93.2) Active confirmed [id number] Problem Fatty liver (K76.0) Active confirmed [id number] Encounters Encounter Location Date Provider Diagnosis [facility] [place] [address], [place] [id number] 04/28/2023 Elia Blue [facility] [address] [place] [address] 05/03/2023 Ralph Sinclair PLAN OF TREATMENT Pending Test Test Name Order Date CBC w/o DIFF 11/07/2019 PROTHROMBIN TIME (PT, INR) 11/07/2019 PARTIAL THROMBOPLASTIN TIME (PTT) [address] GUIDE 11/15/2019 Insurance Providers Payer Name Payer Address Payer Phone Subscriber Number Group Number Insured Name Patient Relationship to Insured Coverage Start Date Coverage End Date [employer] [address] [place] [phone] [id number] JERILYN MONTANA Self - patient is the insured MEDICAID OF [facility] [address] [place] [phone] [id number] JERILYN MONTANA Self - patient is the insured MEDICAL (GENERAL) HISTORY Medical History History ICD Code hx of heart attacks x3 diabetes elevated Cholesterol Surgical History Surgery Date(Month/Year) gastro stimulator ports ($) leg amputated (diabetes) 3 back surgeries
--- OUTSIDE RECORDS SUMMARY | 2023-10-25 23:05 | XMS_ITS ---
Author Organization [facility] Address [address] [place] [phone] Care Team Providers Care Acquisition Lead Name Role Phone Rafiq Zhong MD Primary Care Provider Ralph Wolf [phone] REASON FOR VISIT pathology Encounters Encounter Location Date Provider Diagnosis [facility] [address] [place] [phone] 05/03/2023 Ralph Sinclair PLAN OF TREATMENT No Information
[2023-10-25 23:26] LABS: MANUAL DIFF FLAG NO
[2023-10-25 23:28] LABS: Basophils Percent Auto 0.3 % (0-2); Eosinophils Absolute Auto 0.2 X10*3/uL (0.0-0.4); Eosinophils Percent Auto 1.7 % (0-4); Hematocrit 27.4 % (37.0-47.0); Hemoglobin 9.4 g/dl (12.0-16.0); Imm Gran Abs Auto 0.02 X10*3/uL (0.00-0.03); Imm Gran Pct Auto 0.2 % (0.0-0.4); Lymphocytes Absolute Auto 2.6 X10*3/uL (1.2-4.9); Lymphocytes Percent Auto 30.2 % (20-40); Mean Corpuscular HGB Conc 34.3 g/dl (31.0-35.0); Mean Corpuscular Hemoglobin 32.4 pg (27.0-33.0); Mean Corpuscular Volume 94.5 fL (80.0-98.0); Mean Platelet Volume 9.9 fL (9.4-12.3); Monocytes Absolute Auto 0.6 X10*3/uL (0.1-1.2); Monocytes Percent Auto 7.5 % (2-11); Neutrophils Absolute Auto 5.2 x10*3/uL (2.0-8.3); Neutrophils Percent Auto 60.1 % (45-73); Platelet Count 211 X10*3/uL (160-400); Red Cell Distribution Width 12.7 % (11.0-16.0); White Blood Count 8.6 X10*3/uL (4.8-10.8)
[2023-10-25 23:44] LABS: Alanine Aminotransferase 10 U/L (0-31); Albumin Level 4.2 g/dL (3.5-5.0); Alkaline Phosphatase 68 U/L (39-117); Anion Gap 11 (12-20); Aspartate Amino Transferase 19 U/L (5-31); Bilirubin Total 0.2 mg/dL (0.0-1.0); Blood Urea Nitrogen 22 mg/dL (9-16); Calcium 10.4 mg/dL (8.4-10.2); Carbon Dioxide 23 mmol/L (22-29); Chloride 105 mmol/L (96-108); Creatinine Clr Calc Pharmacy 37.9; Estimated Glomerular Filt Rate 41; Glucose Random 105 mg/dL (60-115); Lipase 10 U/L (8-78); Potassium 5.1 mmol/L (3.3-5.1); Sodium 134 mmol/L (135-145); Total Protein 7.6 g/dL (6.5-8.0)
--- NOTE | 2023-10-25 23:59 | PC.NURSE ---
2 different RN's attempted to obtain iv access but unsuccessful. calling ELECTRONICS UTILITY WORKER to assist w/ ultra sound guided iv line for CT scan.
[2023-10-26 00:05] LABS: Influenza A PCR NEGATIVE (Negative); Influenza B PCR NEGATIVE (Negative); Resp Syncy Virus RNA Qual PCR NEGATIVE (Negative); SARS COV2 PCR INHOUSE NEGATIVE (Negative)
[2023-10-26] MEDS: iohexoL 350 MG/ML 100 ML INFUS..BTL 85 ML IV (00:51)
[2023-10-26] MEDS: cefTRIAXone sodium 1 GM in 0.9 % Sodium Chloride 50 ML IV (01:46)
[2023-10-26 02:54] LABS: Appearance Urine Clear; Color Urine Yellow; Glucose Urine UA Negative (Negative); Leukocyte Esterase Urine Small (1+) (Negative); Nitrite Urine Negative (Negative); PH 7.5 (5.0-9.0); Specific Gravity - Urine 1.015 (1.005-1.025); UMIC TRIGGER UACC YES; Urine Blood Negative (Negative); Urine Ketones Negative (Negative); Urine Protein Negative (Neg-Trace)
--- NOTE | 2023-10-26 03:05 | PC.NURSE ---
pt assisted up to commode to obtain urine sample. pt has not had diarrhea/BM therefore unable to collect stool sample.
[2023-10-26 03:14] LABS: Bacteria Urine None Seen (None Seen); Hyaline Casts Urine 0-2 /LPF (0-2); RBC Urine 0-2 /HPF (0-2); Squamous Epithelial Cell Urine 0-2 /HPF (0-2); UACC Culture Trigger YES; WBC Urine 0-5 /HPF (0-5)
[2023-10-26 05:51] VITALS: BP 118/53; PULSE 54; RESP 16; TEMP 36.9; O2SAT 97
[2023-10-26] MEDS: levoFLOXacin 500 MG TABLET PO (07:38)
[2023-10-26] MEDS: metroNIDAZOLE 500 MG TABLET PO (07:38)
--- NOTE | 2023-10-26 07:42 | PC.NURSE ---
Pt.'s daughter, Codie, called for a ride - [phone]
--- NOTE | 2023-10-26 08:35 | PC.NURSE ---
Daughter answered phone - will be picking pt. up at 10:00
[2023-10-26 09:28] LABS: Glucose, Whole Blood 116 mg/dL (60-115)
[2023-10-26 10:29] VITALS: BP 00/00; PULSE 0; RESP 0; TEMP -17.7; TEMP 0; O2SAT 0
== END 2023-10-26 10:56 | disposition home or self-care (01) ==
PROVIDERS: Nurse Practitioner Family; Emergency Provider Emergency Medicine; PCP Internal Medicine
DX: R53.1 Weakness (principal); N39.0 Urinary tract infection, site not specified; M54.50 Low back pain, unspecified; R10.9 Unspecified abdominal pain; R19.7 Diarrhea, unspecified; Z79.899 Other long term (current) drug therapy; Z03.818 Encounter for observation for suspected exposure to other biological agents ruled out
CPT/HCPCS: 0241U; 36415; 74177; 80053; 81001; 82947; 83690; 83735; 85025; 87086; 96365; 99284; J0696; Q9967

== ENCOUNTER 2023-11-29 00:06 | Emergency (ER) | payer MEDICAID, SELFPAY ==
--- NOTE | ~2023-11-29 | CT_ITS ---
EXAMINATION: CT HEAD WITHOUT CONTRAST (STROKE PROTOCOL) CLINICAL INFORMATION: Stroke protocol. Left-sided weakness, history of CVA COMPARISON: None available. TECHNIQUE: Contiguous axial imaging was performed from the skull base to vertex without intravenous administration of contrast. This CT examination was performed using dose optimization techniques as appropriate, variously including the following: *Automated exposure control *Adjustment of mA and/or kV according to patient size (this includes techniques or standardized protocols for targeted exams where dose is matched to indication/reason for exam; i.e. extremities or head) *Use of iterative reconstruction technique DLP: 684 mGy-cm FINDINGS: There is no evidence of acute intracranial hemorrhage or acute territorial infarction. There is a region of encephalomalacia/chronic-appearing infarct in the left occipital lobe with scattered calcifications and some ex vacuo dilatation of the adjacent lateral ventricle. No abnormal mass-effect or midline shift is seen. Sheets to white matter differentiation is otherwise well preserved. No extra-axial fluid collections are identified. The ventricles are normal in size. There is limited evaluation of the posterior fossa due to streak artifact. The osseous structures and soft tissues are normal. The mastoid air cells and visualized portions of the paranasal sinuses are well-aerated. CT/CT head for stroke IMPRESSION: No acute intracranial hemorrhage or convincing acute infarct. Region of chronic-appearing infarct in the left occipital lobe. This stroke protocol result was discussed with Dr. Mason on 11/29/2023 12:36 AM. Electronically signed by: Jimmie Daniel MD 11/29/2023 12:37 AM EDT
--- NOTE | 2023-11-29 00:10 | ED.NEUROSD ---
HPI - Neuro Symptoms/Deficit General Stated Complaint: arm weakness, speech changes Time Seen by Provider: 11/29/23 00:09 Related Data Allergies Allergy/AdvReac Type Severity Reaction Status Date / Time No Known Allergies Allergy Verified 11/29/23 00:10
== END 2023-11-29 00:22 | disposition still patient (30) ==
PROVIDERS: Emergency Provider Internal Medicine; PCP Internal Medicine
DX: R53.1 Weakness (principal); Z86.73 Personal history of transient ischemic attack (TIA), and cerebral infarction without residual deficits
CPT/HCPCS: 70450; 82947; 85610; 99281; 99284

== ENCOUNTER 2023-11-29 00:14 | Observation (INO) | payer MEDICAID, SELFPAY ==
[2023-11-29] VITALS (10 sets, daily range): BP systolic 115–180; BP diastolic 31–75; PULSE 55–73; RESP 12–21; TEMP 36.2–36.9; O2SAT 97–100; BMI 29.2
--- NOTE | ~2023-11-29 | CT_ITS ---
EXAMINATION: CT ANGIOGRAM HEAD CT ANGIOGRAM NECK CLINICAL INFORMATION: Stroke Protocol cva, LEFT SIDED WEAKNESS, DYSARTHRIA COMPARISON: Noncontrast head CT 07/15/21 TECHNIQUE: Initial noncontrast industrial engineering imaging of the head and neck was performed. Comparison is made with noncontrast head CT from earlier today. Test bolus sequences followed by intravenous administration 70 mL of Omnipaque 350. Helical imaging was performed in the axial plane from the aortic arch to the skull vertex. Delayed postcontrast imaging of the head was also performed. The data was processed at the wood technologist workstation for generation of MIP sequences. Angled MIPs and volume rendered reformatted images were also generated at an offline 3D workstation. Stenoses are assessed in accordance with NASCET criteria unless otherwise indicated. DLP: 2028 mGy-cm This CT examination was performed using dose optimization techniques as appropriate, variously including the following: *Automated exposure control. *Adjustment of mA and/or kV according to patient size (this includes techniques or standardized protocols for targeted exams where dose is matched to indication/reason for exam; i.e. extremities or head). *Use of iterative reconstruction technique. FINDINGS: CT Head: There is no evidence of acute intracranial hemorrhage or edematous territorial infarction. Chronic left [employer] territory infarct with regions of cortical calcification. Sheets-white matter differentiation is otherwise preserved. Proportional prominence of the ventricles and sulcal spaces. Ex vacuo dilatation of the left atrium and occipital horn. No evidence for obstructive hydrocephalus. No abnormal mass effect or midline shift. No extra-axial fluid collections. No pathologic intra-axial enhancement or regional oligemia. No acute soft tissue or osseous abnormalities. The mastoid air cells and paranasal sinuses are clear. CT Neck: The thyroid gland and remaining cervical soft tissues are within normal limits. No significant abnormality of the cervical spine. CT Upper Chest: The upper mediastinum is within normal limits.Tree in bud centrilobular nodules in the left lung, likely infectious. Nodular opacity in the right upper lobe. Neck CTA: Aortic Arch: Normal contour and caliber. Classic 3 vessel branching pattern of the aortic arch. Great Vessel Origins: No significant stenosis of the branch origins. Right Common Carotid Artery: No focal stenosis or occlusion. Cervical Right Internal Carotid Artery: Mild calcific atherosclerotic disease of the carotid bulb and proximal internal carotid artery without flow-limiting stenosis. Left Common Carotid Artery: No focal stenosis or occlusion. Cervical Left Internal Carotid Artery: Mild calcific atherosclerotic disease of the carotid bulb and proximal internal carotid artery without flow-limiting stenosis. Cervical Right Vertebral Artery: No focal stenosis or occlusion. Cervical Left Vertebral Artery: No focal stenosis or occlusion. Brain CTA: Intracranial Internal Carotid Arteries: No focal stenosis or occlusion. Right Anterior Cerebral Artery: Normal A1 segment. Normal opacification of the distal JANEY segments. Left Anterior Cerebral Artery: Normal A1 segment. Normal opacification of the distal JANEY segments. Anterior Communicating Artery: Normal. Right Middle Cerebral Artery: Normal M1 segment of the MCA without focal stenosis or occlusion. Normal arborization of the distal segments. Left Middle Cerebral Artery: Normal M1 segment of the MCA without focal stenosis or occlusion. Normal arborization of the distal segments. Right Vertebral Artery: Normal V4 segment. Left Vertebral Artery: Normal V4 segment. Basilar Artery: Normal without focal stenosis or occlusion. Normal appearance of the proximal superior cerebellar arteries. Right Posterior Cerebral Artery: Normal P1 segment. Normal opacification of the distal [employer] segments. Left Posterior Cerebral Artery: Normal P1 segment. High-grade focal stenosis of the P1-P2 junction . Normal opacification of the distal [employer] segments. Normal opacification of the superior sagittal, straight, transverse, and sigmoid sinuses. CT/CT angio head neck stroke IMPRESSION: 1. Chronic left [employer] territory infarct. No evidence of acute edematous territorial infarct 2. No high grade arterial narrowing in the neck 3. High-grade focal stenosis of the P1-P2 junction of the left [employer], presumably chronic in the setting of chronic infarct. No other intracranial arterial high-grade stenosis or large vessel occlusion. 4. Tree in bud centrilobular pulmonary nodules in the left lung, likely reflecting small airways infection. Multiple nodular opacities in the right upper lobe are also likely infectious but nonspecific. Recommend followup CT to resolution. Impression #[id number] Marlon Jimenez on 11/29/2023 1:24 AM CDT Electronically signed by: Jeffry James MD 11/29/2023 01:42 AM EDT
[2023-11-29 00:18] LABS: Prothrombin Time Whole Bld POC 12.3 sec (11.1-13.5)
--- NOTE | 2023-11-29 00:22 | ECG_ITS ---
Test Reason : ?STROKE Blood Pressure : / mmHG Vent. Rate : 071 BPM Atrial Rate : 071 BPM P-R Int : 154 ms QRS Dur : 104 ms QT Int : 410 ms P-R-T Axes : 056 069 -14 degrees QTc Int : 445 ms Normal sinus rhythm Possible Inferior infarct (cited on or before 26-AUG-2023) Abnormal ECG When compared with ECG of 26-AUG-2023 10:31, No significant change was found Referred By: Nikunj Jimenez Electronically Signed By:SHAHANA XIAO
[2023-11-29 00:23] LABS: Glucose, Whole Blood 169 mg/dL (60-115)
--- NOTE | 2023-11-29 00:55 | ED_ITS ---
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 uses wheelchair and good movements of the upper extremities was with her son at 22:30 when he noticed that she has difficulty in speaking and more weakness of the left side also also patient complaining of chest pain at the time with shakiness without loss of consciousness no diaphoresis no nausea no vomiting Related Data Home Medications ?Medication ?Instructions ?Recorded ?Confirmed isosorbide mononitrate 30 mg 30 mg PO DAILY 05/12/20 07/01/23 tablet,extended release 24 hr omeprazole 20 mg capsule,delayed 20 mg PO BID@0630,1630 05/12/20 07/01/23 release topiramate 100 mg tablet 100 mg PO BID 05/12/20 07/01/23 ergocalciferol (vitamin D2) 1,250 1,250 mcg PO RIVER 07/15/21 07/01/23 mcg (50,000 unit) capsule nitroglycerin 0.4 mg sublingual 0.4 mg sublingual Q5M PRN Chest 07/15/21 07/01/23 tablet (Nitrostat) Pain insulin glargine 100 unit/mL (3 30 unit subcut DAILY PRN 07/22/21 07/01/23 mL) subcutaneous pen (Lantus Hyperglycemia Solostar U-100 Insulin) amitriptyline 50 mg tablet 50 mg PO BEDTIME 04/27/23 07/01/23 aspirin 81 mg tablet,delayed 81 mg PO DAILY 04/27/23 07/01/23 release atorvastatin 80 mg tablet 80 mg PO BEDTIME 04/27/23 07/01/23 gabapentin 100 mg capsule 100 mg PO TID 04/27/23 07/01/23 losartan 100 mg tablet 100 mg PO BEDTIME 04/27/23 07/01/23 metoprolol succinate 100 mg 100 mg PO BID 04/27/23 07/01/23 tablet,extended release 24 hr amlodipine 10 mg tablet 10 mg PO DAILY 07/01/23 07/01/23 lactulose 10 gram/15 mL oral 15 ml PO DAILY PRN Constipation 07/01/23 07/01/23 solution Previous Rx's ?Medication ?Instructions ?Recorded levofloxacin 500 mg tablet 500 mg PO Q24H #4 tabs 07/05/23 metronidazole 500 mg tablet 500 mg PO BID #8 tabs 07/05/23 tamsulosin 0.4 mg capsule 0.4 mg PO DAILY #30 caps 07/05/23 levofloxacin 500 mg tablet 500 mg PO DAILY 10 days #10 tabs 10/26/23 metronidazole 500 mg tablet 500 mg PO TID #30 tabs 10/26/23 Allergies Allergy/AdvReac Type Severity Reaction Status Date / Time Penicillins [PENICILLINS] Allergy Mild HIVES Verified 11/29/23 01:09 clarithromycin [From Biaxin] Allergy Unknown HIVES Verified 11/29/23 01:09 penicillin V Allergy Unknown rash, Verified 11/29/23 01:09 throat tight bioxin Allergy Unknown Unknown Uncoded 11/29/23 01:09 penicillin Allergy Unknown Unknown Uncoded 11/29/23 01:09 Review of Systems 2 Review of Systems: Yes all other systems are reviewed and are negative [facility] Past Medical History Medical History Diabetes type 2 with atherosclerosis of arteries of extremities Diabetic foot ulcer Diabetic neuropathy associated with diabetes mellitus due to underlying condition Hypotonic neurogenic bladder Delirium due to another medical condition Hyperglycemia Encephalopathy acute CVA (cerebral vascular accident) History of peptic ulcer disease Cholelithiasis Myocardial infarction Wheelchair bound Below knee amputation CAD (coronary artery disease) Chronic pain syndrome Depression Anxiety HTN (hypertension) Liver lesion History of gastrostomy tube placement Gastroparesis IDDM (insulin dependent diabetes mellitus) Surgical History History of back surgery Hx of BKA Family History Family History Father Coronary arteriosclerosis Social History Social History Household Members: None Housing: Apartment Are you a primary adult daycare coordinator to a significant other at home: No Do you presently have visiting nurse or other home services: Yes Unable to assess alcohol history related to: Unknown Alcohol intake: former Comment: 1:1 sitter Patient Tobacco Use Status: Never used Tobacco Smoked in Last 30 Days: No Second Hand Smoke Exposure: No Use of substances other than those prescribed or required for medical reasons: No Advance Directives: Yes Advance Directives on File: Yes Advance Directives Date on File: 05/12/20 Do you have a plan to hurt others: No Plan Patient : No service: No Current occupational status: unemployed and disabled Physical Exam 2 Vital Signs: Vital Signs: Last Vital Signs Temp 98.2 F 11/29/23 01:06 Pulse 73 11/29/23 01:06 Resp 12 11/29/23 01:06 BP 157/69 H 11/29/23 01:06 Pulse Ox 97 11/29/23 01:06 O2 Del Method Room Air 11/29/23 01:06 BMI result Body Mass Index 29.2 Appearance: Alert. Oriented X3. No acute distress. Eyes: PERRLA, No Nystagmus ENT: Pharynx normal. Oral Mucosa moist Neck: Normal inspection. Neck supple. CVS: Normal heart rate and rhythm. Pulses normal. Respiratory: No respiratory distress. Equal air entry bilateral, no wheezing/rales/rhonchi Abdomen: Soft and nontender. Bowel sounds are present, no mass palpable, no CVA tenderness Skin: Skin warm and dry. Normal skin color. Normal skin turgor. Extremities: No lower extremity edema. No calf tenderness right BKA Neuro: Oriented X 3. No motor deficit. No sensory deficit.No cerebellar signs , cranial nerves II-XII intact normal speech Medications Administered Discontinued Medications Generic Name Dose Route Start Last Admin Trade Name Freq PRN Reason Stop Dose Admin Iohexol 70 ml 11/29/23 00:59 11/29/23 01:00 Iohexol 350 Mg/Ml 100 Ml Infus..Btl IV 11/29/23 01:00 70 ml ONCE ONE Administration Medical Decision Making Medical Decision Making MDM Narrative: Case discussed with patient's son José Luis phone number [phone] patient shaking episode with chest pain with slight weakness of left upper extremity and dysarthria CT head negative for acute infarct CTA also negative for large vessel occlusion patient did remarkable improvement speech improved back to baseline likely had a TIA patient is on aspirin and statin will admit patient for further evaluation Differential Diagnosis Differential Diagnoses: The differential diagnosis associated with the presentation includes CVA/TIA/seizure disorder/ACS/syncope/palpitation/cardiac arrhythmia Admission/Observation Consideration of admission/observation: Escalation of care including admission/observation considered Consult Healthcare Provider Management of the patient was discussed with: Hospitalist Lab Data MDM Lab Attestation statement: I reviewed the patient's lab results. 11/29/23 01:21 11/29/23 01:21 Labs: Lab Results 11/29/23 Range/Units 01:21 WBC 9.0 (4.8-10.8) X10*3/uL RBC 3.01 L (4.20-5.50) X10*6/uL Hgb 9.6 L (12.0-16.0) g/dl Hct 28.6 L (37.0-47.0) % MCV 95.0 (80.0-98.0) fL MCH 31.9 (27.0-33.0) pg MCHC 33.6 (31.0-35.0) g/dl RDW 13.2 (11.0-16.0) % Plt Count 256 (160-400) X10*3/uL MPV 9.5 (9.4-12.3) fL Immature Gran % (Auto) 0.4 (0.0-0.4) % Neut % (Auto) 61.8 (45-73) % Lymph % (Auto) 26.3 (20-40) % Bulloch % (Auto) 9.3 (2-11) % Eos % (Auto) 1.8 (0-4) % Baso % (Auto) 0.4 (0-2) % Lymph # (Auto) 2.4 (1.2-4.9) X10*3/uL Bulloch # (Auto) 0.8 (0.1-1.2) X10*3/uL Eos # (Auto) 0.2 (0.0-0.4) X10*3/uL Baso # (Auto) 0.0 (0.0-0.2) X10*3/uL Abs Immat Gran (auto) 0.04 H (0.00-0.03) X10*3/uL Absolute Neuts (auto) 5.6 (2.0-8.3) x10*3/uL Absolute Nucleated RBC 0.000 (0.0-0.012) X10*3/uL Nucleated RBC % (auto) 0.0 (0.0-0.2) /100WBC Independent Interpretation I performed an independent interpretation of an: EKG and CT Scan Interpretation: Negative CT head for acute Normal sinus rhythm heart rate 71 beats per minute normal interval normal axis no acute ST elevation Radiology Impression Discussion of test interpretation with radiology: I have reviewed the radiologist's reading. Radiologist Impression: CTA head and neck negative for acute large vessel occlusion has previous strokes NIH Stroke Scale Internal: Initial- Upon Arrival Level of Consciousness: Alert Level of Consciousness Questions: Answers both questions correctly Level of Consciousness Commands: Performs both tasks correctly Best Gaze: Normal Visual: No visual loss Facial Palsy: Normal Motor Arm (Right): No drift Motor Arm (Left): No drift Motor Leg (Right): No drift Motor Leg (Left): No drift Limb Ataxia: Absent Sensory: Normal Best Language: Mild to moderate aphasia Dysarthia: Normal Extinction and Inattention: No abnormality Score: 1 Critical Care Time Critical Care Time Critical Care Time: Yes Total Critical Care Time: 55 Attestation: The patient was critically ill with a high probability of imminent or life threatening deterioration. I spent greater than 60???minutes of discontinuous time evaluating the patient,delivering critical care at the bedside, discussing and evaluating pertinent data with consultants. Critical care time does not include time spent performing separately billable procedures or teaching. Total time spent performing critical care was ?55??minutes. Discharge Plan Discharge Clinical Impression: Cerebrovascular accident, Transient cerebral ischemia Patient Disposition: Admitted As Inpatient Print Language: Colombian
[2023-11-29] MEDS: iohexoL 350 MG/ML 100 ML INFUS..BTL 70 ML IV (01:00)
--- NOTE | 2023-11-29 01:08 | PC.NURSE ---
Late entry for 0031 Pt arrived via EMS, MD Mason present for immediate MD assessment/evaluation. CT scanner in the department was in the middle of completing a PE study on another patient. Due to this delay, it was decided that the patient would be taken to CT outside of the department. Primary RN and EDT accompanied EMS with the patient off unit
[2023-11-29 01:29] LABS: MANUAL DIFF FLAG NO
[2023-11-29 01:30] LABS: Basophils Percent Auto 0.4 % (0-2); Eosinophils Absolute Auto 0.2 X10*3/uL (0.0-0.4); Eosinophils Percent Auto 1.8 % (0-4); Hematocrit 28.6 % (37.0-47.0); Hemoglobin 9.6 g/dl (12.0-16.0); Imm Gran Abs Auto 0.04 X10*3/uL (0.00-0.03); Imm Gran Pct Auto 0.4 % (0.0-0.4); Lymphocytes Absolute Auto 2.4 X10*3/uL (1.2-4.9); Lymphocytes Percent Auto 26.3 % (20-40); Mean Corpuscular HGB Conc 33.6 g/dl (31.0-35.0); Mean Corpuscular Hemoglobin 31.9 pg (27.0-33.0); Mean Platelet Volume 9.5 fL (9.4-12.3); Monocytes Absolute Auto 0.8 X10*3/uL (0.1-1.2); Monocytes Percent Auto 9.3 % (2-11); Neutrophils Absolute Auto 5.6 x10*3/uL (2.0-8.3); Neutrophils Percent Auto 61.8 % (45-73); Platelet Count 256 X10*3/uL (160-400); Red Blood Count 3.01 X10*6/uL (4.20-5.50); Red Cell Distribution Width 13.2 % (11.0-16.0)
[2023-11-29 01:38] LABS: INTERNATIONAL NORM RATIO 0.9 (0.9-1.1); Prothrombin Time 11.5 SEC (11.1-13.3)
[2023-11-29 01:40] LABS: Partial Thromboplastin Time 33.1 SEC (26.0-36.8)
--- NOTE | 2023-11-29 01:40 | PC.NURSE ---
delphine Ordonez [phone], Trixie [phone]
[2023-11-29 01:41] LABS: Stroke Lab Use COMPLETE
[2023-11-29 01:49] LABS: Anion Gap 10 (12-20); Blood Urea Nitrogen 17 mg/dL (9-16); Calcium 9.9 mg/dL (8.4-10.2); Carbon Dioxide 24 mmol/L (22-29); Chloride 108 mmol/L (96-108); Cholesterol 102 mg/dL (<200); Creatinine Clr Calc Pharmacy 65.7; Estimated Glomerular Filt Rate > 60; Glucose Random 162 mg/dL (60-115); HDL Cholesterol 34 mg/dL (>40); LDL Cholesterol Calculated 54 mg/dL (<100); Potassium 3.7 mmol/L (3.3-5.1); Sodium 138 mmol/L (135-145); Triglycerides 72 mg/dL (<150)
[2023-11-29] MEDS: 0.9 % Sodium Chloride 1,000 ML 999 ML IV (01:49)
[2023-11-29 01:52] LABS: Troponin-I High Sensitivity 3.1 ng/L (<3.5-17.0)
--- NOTE | 2023-11-29 02:42 | PC.NURSE ---
late entry, Pt came in from home, stroke alert called at 0019. Unable to obtain IV,. [address] scan across the hospital, still on the EMS stretcher. Ct head completed, unable to obtain IV, for CT angio. Paul PRECIADO, came and place IV, using US. CT angio, started at 0047. Pt is awake, alert and oriented x3, talking, no deficits noted
--- NOTE | 2023-11-29 02:46 | PM.IMHP ---
History of Present Illness Date of Service: 11/29/23 Chief Complaint: AMS This is a 63-year-old female with pertinent history of gastroparesis status post gastric pacemaker, insulin-dependent diabetes mellitus, hypertension, mood disorder, peripheral vascular disease status post right BKA, gastroesophageal reflux disease, history of CVA who was brought to the emergency department for concerns of difficulty with speech. Patient states that around 22:30, she was trying to call her son and the next thing she knew she was on the stretcher. Patient thinks she passed out. Unable to contact the son at this time. As per ER provider, the son noticed that the patient was with difficulty in speech. Her speech is at baseline at the time of my evaluation. Denies focal extremity weakness. States she also had midsternal chest discomfort which is now resolved. No fever, chills, palpitations, shortness of breath, abdominal pain, changes in urinary or bowel habits. In the emergency department, CTA without any acute abnormality Review of Systems Cardiovascular: Cardiovascular: Reports no additional cardiovascular complaints and Reports syncope Respiratory: Respiratory: Reports no additional respiratory complaints Gastrointestinal: Gastrointestinal: Reports no additional gastrointestinal complaints Genitourinary: Genitourinary: Reports no additional female genitourinary complaints Neurologic: Reports Abnormal speech present and Reports syncope [facility] Medical History Diabetes type 2 with atherosclerosis of arteries of extremities Diabetic foot ulcer Diabetic neuropathy associated with diabetes mellitus due to underlying condition Hypotonic neurogenic bladder Delirium due to another medical condition Hyperglycemia Encephalopathy acute CVA (cerebral vascular accident) History of peptic ulcer disease Cholelithiasis Myocardial infarction Wheelchair bound Below knee amputation CAD (coronary artery disease) Chronic pain syndrome Depression Anxiety HTN (hypertension) Liver lesion History of gastrostomy tube placement Gastroparesis IDDM (insulin dependent diabetes mellitus) Family History Father Coronary arteriosclerosis Surgical History History of back surgery Hx of BKA Social History Household Members: None Housing: Apartment Are you a primary women's health care nurse practitioner to a significant other at home: No Do you presently have visiting nurse or other home services: Yes Unable to assess alcohol history related to: Unknown Alcohol intake: former Comment: 1:1 sitter Patient Tobacco Use Status: Never used Tobacco Smoked in Last 30 Days: No Second Hand Smoke Exposure: No Use of substances other than those prescribed or required for medical reasons: No Advance Directives: Yes Advance Directives on File: Yes Advance Directives Date on File: 05/12/20 Do you have a plan to hurt others: No Plan Patient : No service: No Current occupational status: unemployed and disabled Meds Allergies Allergy/AdvReac Type Severity Reaction Status Date / Time Penicillins [PENICILLINS] Allergy Mild HIVES Verified 11/29/23 01:09 clarithromycin [From Biaxin] Allergy Unknown HIVES Verified 11/29/23 01:09 penicillin V Allergy Unknown rash, Verified 11/29/23 01:09 throat tight bioxin Allergy Unknown Unknown Uncoded 11/29/23 01:09 penicillin Allergy Unknown Unknown Uncoded 11/29/23 01:09 Home Medications ?Medication ?Instructions ?Recorded ?Confirmed ?Last Taken ?Type isosorbide mononitrate 30 mg 30 mg PO DAILY 05/12/20 07/01/23 01/29/21 History tablet,extended release 24 hr omeprazole 20 mg capsule,delayed 20 mg PO BID@0630,1630 05/12/20 07/01/23 01/27/21 History release topiramate 100 mg tablet 100 mg PO BID 05/12/20 07/01/23 01/29/21 History ergocalciferol (vitamin D2) 1,250 1,250 mcg PO RIVER 07/15/21 07/01/23 Unknown History mcg (50,000 unit) capsule nitroglycerin 0.4 mg sublingual 0.4 mg sublingual Q5M PRN Chest 07/15/21 07/01/23 Unknown History tablet (Nitrostat) Pain insulin glargine 100 unit/mL (3 30 unit subcut DAILY PRN 07/22/21 07/01/23 Unknown History mL) subcutaneous pen (Lantus Hyperglycemia Solostar U-100 Insulin) amitriptyline 50 mg tablet 50 mg PO BEDTIME 04/27/23 07/01/23 Unknown History aspirin 81 mg tablet,delayed 81 mg PO DAILY 04/27/23 07/01/23 Unknown History release atorvastatin 80 mg tablet 80 mg PO BEDTIME 04/27/23 07/01/23 Unknown History gabapentin 100 mg capsule 100 mg PO TID 04/27/23 07/01/23 Unknown History losartan 100 mg tablet 100 mg PO BEDTIME 04/27/23 07/01/23 Unknown History metoprolol succinate 100 mg 100 mg PO BID 04/27/23 07/01/23 Unknown History tablet,extended release 24 hr amlodipine 10 mg tablet 10 mg PO DAILY 07/01/23 07/01/23 Unknown History lactulose 10 gram/15 mL oral 15 ml PO DAILY PRN Constipation 07/01/23 07/01/23 Unknown History solution Physical Exam Vital Signs and Narrative: Vital Signs: Last Vital Signs Temp 98.0 F 11/29/23 02:13 Pulse 67 11/29/23 02:13 Resp 17 11/29/23 02:13 BP 139/50 L 11/29/23 02:13 Pulse Ox 99 11/29/23 02:13 O2 Del Method Room Air 11/29/23 02:13 BMI result Body Mass Index 29.2 Middle-aged female lying in bed in no distress Neck supple, no JVD Regular rate and rhythm, S1-S2 heard Regular breath sounds bilaterally, no wheezing or crackles appreciated Abdomen soft nontender, no guarding, no rigidity Patient is awake, alert and oriented to self, place, time and person, speech at baseline, no pronator drift, no nystagmus, tongue and uvula midline Psych: Normal mood Right BKA Neuro: Speech: Abnormal speech present Results Labs 11/29/23 01:21 11/29/23 01:21 Labs: Laboratory Results - last 24 hr 11/29/23 01:21 MCV 95.0 MCH 31.9 MCHC 33.6 RDW 13.2 Plt Count 256 MPV 9.5 Immature Gran % (Auto) 0.4 Neut % (Auto) 61.8 Lymph % (Auto) 26.3 Cotton % (Auto) 9.3 Eos % (Auto) 1.8 Baso % (Auto) 0.4 Lymph # (Auto) 2.4 Cotton # (Auto) 0.8 Eos # (Auto) 0.2 Baso # (Auto) 0.0 Abs Immat Gran (auto) 0.04 H Absolute Neuts (auto) 5.6 Absolute Nucleated RBC 0.000 Nucleated RBC % (auto) 0.0 PT 11.5 INR 0.9 APTT 33.1 Anion Gap 10 L Estim Creat Clear Calc 65.7 Estimated GFR > 60 Random Glucose 162 H Calcium 9.9 Troponin I High Sens 3.1 Triglycerides 72 Cholesterol 102 LDL Cholesterol, Calc 54 HDL Cholesterol 34 L Imaging Radiologist's Impressions: Impressions Head/Neck CTA 11/29/23 00:47 IMPRESSION: 1. Chronic left ACCOUNT PLANNER territory infarct. No evidence of acute edematous territorial infarct 2. No high grade arterial narrowing in the neck 3. High-grade focal stenosis of the P1-P2 junction of the left ACCOUNT PLANNER, presumably chronic in the setting of chronic infarct. No other intracranial arterial high-grade stenosis or large vessel occlusion. 4. Tree in bud centrilobular pulmonary nodules in the left lung, likely reflecting small airways infection. Multiple nodular opacities in the right upper lobe are also likely infectious but nonspecific. Recommend followup CT to resolution. Impression #1-[address] Marlon Jimenez on 11/29/2023 1:24 AM CDT Electronically signed by: Jeffry James MD 11/29/2023 01:42 AM EDT RP Assessment and Plan (1) Acute encephalopathy: Status: Acute Plan This is a 63-year-old female with pertinent history of gastroparesis status post gastric pacemaker, insulin-dependent diabetes mellitus, hypertension, mood disorder, peripheral vascular disease status post right BKA, gastroesophageal reflux disease, history of CVA who was brought to the emergency department for concerns of difficulty with speech. #. Acute encephalopathy: Unclear history. As per the patient, she had a syncopal episode. Will monitor on telemetry. As per the son, questionable transient slurred speech which is now resolved ?concerning for TIA. ABCD2 score 6. Consulting Neurology and obtaining MRI. Patient is on aspirin and high-intensity statin #. Chest pain, atypical: Trend troponins #. Insulin-dependent diabetes mellitus: Reduce home basal insulin. Initiating Accu-Cheks with sliding scale insulin #. Hypertension: Continue home antihypertensives #. Mood disorder: Continue home mood stabilizers #. Peripheral vascular disease/history of CVA: On antiplatelet agent and high-intensity statin #. Gastroesophageal reflux disease: On PPI Med rec pending DVT prophylaxis: Lovenox Full code Quality Stroke Does the patient have a stroke diagnosis?: No VTE Prior VTE?: No VTE Risk Level:: Medical - moderate - high VTE Device Contraindication: Treatment Not Indicated VTE Drug Contraindication: N/A - Med Ordered
[2023-11-29 03:14] LABS: Appearance Urine Clear; Color Urine Yellow; Glucose Urine UA Negative (Negative); Leukocyte Esterase Urine Negative (Negative); Nitrite Urine Negative (Negative); Urine Blood Negative (Negative); Urine Ketones Negative (Negative); Urine Protein Trace mg/dL (Neg-Trace)
--- NOTE | 2023-11-29 03:20 | MHC.EDTECH ---
pt up to bedside commode with one assist. urine sample collected and sent to lab. linens changed, pt resting comfortably at this time.
--- NOTE | 2023-11-29 03:39 | PC.NURSE ---
MRI check sheet completed
--- NOTE | 2023-11-29 03:57 | PC.NURSE ---
resting quietly on stretcher, resp with ease, no s/s of acute distress,awaiting admit bed
[2023-11-29 05:12] LABS: Hematocrit 30.4 % (37.0-47.0); Mean Corpuscular HGB Conc 32.9 g/dl (31.0-35.0); Mean Corpuscular Hemoglobin 31.5 pg (27.0-33.0); Mean Corpuscular Volume 95.9 fL (80.0-98.0); Mean Platelet Volume 9.6 fL (9.4-12.3); Platelet Count 247 X10*3/uL (160-400); Red Blood Count 3.17 X10*6/uL (4.20-5.50); Red Cell Distribution Width 13.3 % (11.0-16.0)
[2023-11-29 05:32] LABS: Anion Gap 10 (12-20); Blood Urea Nitrogen 17 mg/dL (9-16); Calcium 9.8 mg/dL (8.4-10.2); Carbon Dioxide 22 mmol/L (22-29); Chloride 112 mmol/L (96-108); Creatinine Clr Calc Pharmacy 70.6; Estimated Glomerular Filt Rate > 60; Glucose Random 157 mg/dL (60-115); Sodium 140 mmol/L (135-145); Troponin-I High Sensitivity 5.5 ng/L (<3.5-17.0)
--- NOTE | 2023-11-29 06:58 | PC.NURSE ---
report given to Nilsa PRECIADO
[2023-11-29 07:17] LABS: Glucose, Whole Blood 160 mg/dL (60-115)
[2023-11-29] MEDS: Insulin Lispro 100 UNIT/ML 3 ML VIAL SUBCUT ×2 (07:35→21:34)
[2023-11-29] MEDS: 0.9 % Sodium Chloride Flush 3 ML SYRINGE IVFLUSH ×2 (07:35→16:06)
[2023-11-29] MEDS: Acetaminophen 325 MG TABLET 650 MG PO ×3 (07:38→23:13)
[2023-11-29] MEDS: Enoxaparin Sodium 40 MG/0.4 ML SYRINGE SUBCUT (08:51)
--- NOTE | 2023-11-29 09:39 | MHC.CM.PN ---
Patient is unavailable; CM spoke with Daughter/HCP/Codie @ [phone] and addressed CARLIN with her (original will be mailed to Codie @ [address] [place] [address] Dr. Schmid [phone] and a copy will be placed on the chart). Patient lives alone in an apartment and Codie is her Stephan RACE RELATIONS PROFESSOR 48 hours/week.Home/resume said services is the goal and CM has initiated and will follow for dc planning. Patient is w/c bound at baseline r/t (R)BKA. PCP is Dr. Rafiq Zhong and Daughter will transport to home.
--- NOTE | 2023-11-29 10:25 | PHA.MEDREC ---
Pharmacy Consult ? Medication Reconciliation Pharmacy has completed the medication reconciliation, spoke to patient's daughter Codie . Daughter confirmed all medications, stated she also takes tylenol PRN OTC, and tamsulosin did not sound familiar - called [facility] for confirm, med was only a 1 month supply with no refills, also stated she has lactulose at home but uses miralax instead so is not currently taking it.
[2023-11-29 13:36] LABS: Glucose, Whole Blood 127 mg/dL (60-115)
[2023-11-29] MEDS: Topiramate 100 MG TABLET PO ×2 (13:48→20:57)
[2023-11-29] MEDS: Gabapentin 100 MG CAPSULE PO ×2 (13:48→20:57)
[2023-11-29] MEDS: amLODIPine Besylate 10 MG TABLET PO (13:48)
[2023-11-29] MEDS: Aspirin Enteric Coated 81 MG TABLET.DR PO (13:48)
--- NOTE | 2023-11-29 14:27 | PM.NEUROCN ---
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 Patient states that around 22:30, she was trying to call her son and the next thing she knew she was on the stretcher. Patient thinks she passed out. As per ER provider, the son noticed that the patient was having difficulty in speech. Her speech is at baseline now. Denies focal extremity weakness. States she also had midsternal chest discomfort which is now resolved. No fever, chills, palpitations, shortness of breath, abdominal pain, changes in urinary or bowel habits. CT brain show sold left BAIT MAN infarct and CTA negative except for left BAIT MAN stenosis Review of Systems Review of Systems: Yes all other systems are reviewed and are negative Cardiovascular: Cardiovascular: Reports no additional cardiovascular complaints and Reports syncope Respiratory: Respiratory: Reports no additional respiratory complaints Gastrointestinal: Gastrointestinal: Reports no additional gastrointestinal complaints Neurologic: Reports Abnormal speech present and Reports syncope PMFSH Past Medical History Medical History Diabetes type 2 with atherosclerosis of arteries of extremities Diabetic foot ulcer Diabetic neuropathy associated with diabetes mellitus due to underlying condition Hypotonic neurogenic bladder Delirium due to another medical condition Hyperglycemia Encephalopathy acute CVA (cerebral vascular accident) History of peptic ulcer disease Cholelithiasis Myocardial infarction Wheelchair bound Below knee amputation CAD (coronary artery disease) Chronic pain syndrome Depression Anxiety HTN (hypertension) Liver lesion History of gastrostomy tube placement Gastroparesis IDDM (insulin dependent diabetes mellitus) Family History Family History Father Coronary arteriosclerosis Surgical History Surgical History History of back surgery Hx of BKA Social History Social History (System 11/29/23 @ 07:39 by Riddhi Toro) Household Members: None Housing: Apartment Are you a primary home child care provider to a significant other at home: No Do you presently have visiting nurse or other home services: Yes Unable to assess alcohol history related to: Unknown Alcohol intake: former Comment: 1:1 sitter Patient Tobacco Use Status: Never used Tobacco Smoked in Last 30 Days: No Second Hand Smoke Exposure: No Use of substances other than those prescribed or required for medical reasons: No Advance Directives: Yes Advance Directives on File: Yes Advance Directives Date on File: 05/12/20 Do you have a plan to hurt others: No Plan Patient : No service: No Current occupational status: unemployed and disabled Meds Allergies Allergy/AdvReac Type Severity Reaction Status Date / Time Penicillins [PENICILLINS] Allergy Mild HIVES Verified 11/29/23 07:39 clarithromycin [From Biaxin] Allergy Unknown HIVES Verified 11/29/23 07:39 penicillin V Allergy Unknown rash, Verified 11/29/23 07:39 throat tight bioxin Allergy Unknown Unknown Uncoded 11/29/23 07:39 penicillin Allergy Unknown Unknown Uncoded 11/29/23 07:39 Active Medications: Current Medications Acetaminophen (Acetaminophen 325 Mg Tablet) 650 mg PO Q6H PRN PRN Reason: Pain, Mild (Pain Scale 1-3), fever or headache Last Admin: 11/29/23 07:38 Dose: 650 mg Amitriptyline HCl (Amitriptyline Hcl 50 Mg Tablet) 50 mg PO BEDTIME [facility] Amlodipine Besylate (Amlodipine Besylate 10 Mg Tablet) 10 mg PO DAILY [facility]; Protocol Last Admin: 11/29/23 13:48 Dose: 10 mg Aspirin (Aspirin Enteric Coated 81 Mg Tablet.Dr) 81 mg PO DAILY [facility] Last Admin: 11/29/23 13:48 Dose: 81 mg Atorvastatin Calcium (Atorvastatin Calcium 80 Mg Tablet) 80 mg PO BEDTIME [facility] Calcium Carbonate (Calcium Carbonate 750 Mg Tab.Chew) 750 mg PO Q4H PRN PRN Reason: Heartburn Enoxaparin Sodium (Enoxaparin Sodium 40 Mg/0.4 Ml Syringe) 40 mg SUBCUT Q24H [facility] Last Admin: 11/29/23 08:51 Dose: 40 mg Ergocalciferol (Ergocalciferol (Vitamin D2) 1,250 Mcg Capsule) 1,250 mcg PO RIVER [facility] Gabapentin (Gabapentin 100 Mg Capsule) 100 mg PO BID [facility] Last Admin: 11/29/23 13:48 Dose: 100 mg Glucose (Glucose Gel 15 Gm Gel..Gram.) 15 gm PO Q15M PRN; Protocol PRN Reason: per Hypoglycemia Standing Ord. Dextrose (D10) 250 mls @ 750 mls/hr IV Q15M PRN; Protocol PRN Reason: per Hypoglycemia Standing Ord. Insulin Glargine (Insulin Glargine,Hum.Rec.Anlog 100 Unit/Ml 10 Ml Vial) 30 unit SUBCUT DAILY PRN PRN Reason: Hyperglycemia Insulin Human Lispro (Insulin Lispro 100 Unit/Ml 3 Ml Vial) 0 unit SUBCUT QIDACHS [facility]; Protocol Last Admin: 11/29/23 12:32 Dose: Not Given Isosorbide Mononitrate (Isosorbide Mononitrate 30 Mg Tab.Er.24h) 30 mg PO DAILY [facility]; Protocol Lactulose (Lactulose 20 Gm/30 Ml Solution) 10 gm PO DAILY PRN PRN Reason: Constipation Losartan Potassium (Losartan Potassium 50 Mg Tablet) 100 mg PO BEDTIME [facility]; Protocol Magnesium Hydroxide (Milk Of Magnesia 30 Ml Oral.Susp) 30 ml PO DAILY PRN PRN Reason: Constipation Melatonin (Melatonin 3 Mg Tablet) 6 mg PO BEDTIME PRN PRN Reason: Insomnia Metoprolol Succinate (Metoprolol Succinate Er 100 Mg Tab.Er.24h) 100 mg PO BID [facility]; Protocol Nitroglycerin (Nitroglycerin 0.4 Mg Tab.Subl) 0.4 mg SUBLINGUAL Q5M PRN PRN Reason: Chest Pain Omeprazole (Omeprazole 20 Mg Capsule.Dr) 20 mg PO BID@0630,1630 [facility] Ondansetron HCl (Ondansetron Hcl 4 Mg/2 Ml Vial) 4 mg IVPUSH Q8H PRN PRN Reason: Nausea and Vomiting Oxycodone HCl (Oxycodone Hcl Immed Release 5 Mg Tablet) 5 mg PO Q6H PRN PRN Reason: Pain, Severe (Pain Scale 7-10) Polyethylene Glycol (Polyethylene Glycol 3350 17 Gm Powd.Pack) 17 gm PO DAILY [facility] Sodium Chloride (0.9 % Sodium Chloride Flush 3 Ml Syringe) 3 ml IVFLUSH QSHIFT [facility] Last Admin: 11/29/23 07:35 Dose: 3 ml Topiramate (Topiramate 100 Mg Tablet) 100 mg PO BID [facility] Last Admin: 11/29/23 13:48 Dose: 100 mg Home Medications ?Medication ?Instructions ?Recorded ?Confirmed ?Last Taken ?Type isosorbide mononitrate 30 mg 30 mg PO DAILY 05/12/20 11/29/23 11/28/23 History tablet,extended release 24 hr omeprazole 20 mg capsule,delayed 20 mg PO BID@0630,1630 05/12/20 11/29/23 11/28/23 History release topiramate 100 mg tablet 100 mg PO BID 05/12/20 11/29/23 11/28/23 History ergocalciferol (vitamin D2) 1,250 1,250 mcg PO RIVER 07/15/21 11/29/23 Unknown History mcg (50,000 unit) capsule nitroglycerin 0.4 mg sublingual 0.4 mg sublingual Q5M PRN Chest 07/15/21 11/29/23 Unknown History tablet (Nitrostat) Pain insulin glargine 100 unit/mL (3 30 unit subcut DAILY PRN 07/22/21 11/29/23 Unknown History mL) subcutaneous pen (Lantus Hyperglycemia Solostar U-100 Insulin) amitriptyline 50 mg tablet 50 mg PO BEDTIME 04/27/23 11/29/23 Unknown History aspirin 81 mg tablet,delayed 81 mg PO DAILY 04/27/23 11/29/23 11/28/23 History release atorvastatin 80 mg tablet 80 mg PO BEDTIME 04/27/23 11/29/23 Unknown History gabapentin 100 mg capsule 100 mg PO BID 04/27/23 11/29/23 11/28/23 History losartan 100 mg tablet 100 mg PO BEDTIME 04/27/23 11/29/23 Unknown History metoprolol succinate 100 mg 100 mg PO BID 04/27/23 11/29/23 11/28/23 History tablet,extended release 24 hr amlodipine 10 mg tablet 10 mg PO DAILY 07/01/23 11/29/23 11/28/23 History lactulose 10 gram/15 mL oral 15 ml PO DAILY PRN Constipation 07/01/23 11/29/23 Unknown History solution acetaminophen 325 mg tablet 650 mg PO Q6H PRN Pain 11/29/23 11/29/23 Unknown History polyethylene glycol 3350 17 17 g PO DAILY 11/29/23 11/29/23 11/28/23 History gram/dose oral powder Physical Exam Vital Signs: Vital Signs: Last Vital Signs Temp 98.1 F 11/29/23 05:01 Pulse 56 11/29/23 12:27 Resp 14 11/29/23 12:27 BP 136/46 L 11/29/23 13:48 Pulse Ox 99 11/29/23 12:27 O2 Del Method Room Air 11/29/23 12:27 BMI result Body Mass Index 29.2 Neuro: Other: Right homonymous hemianopsia from previous left BAIT MAN stroke. Mild generalized weakness without focal abnormality. She is unable to ambulate because of a right below-knee amputation and weakness of the left leg Speech: Abnormal speech present Results Labs 11/29/23 05:03 11/29/23 05:03 Labs: Short CBC 11/29/23 11/29/23 Range/Units 01:21 05:03 WBC 9.0 9.0 (4.8-10.8) X10*3/uL Hgb 9.6 L 10.0 L (12.0-16.0) g/dl Hct 28.6 L 30.4 L (37.0-47.0) % Plt Count 256 247 (160-400) X10*3/uL BMP 11/29/23 11/29/23 01:21 05:03 Sodium 138 140 Potassium 3.7 D 4.0 Chloride 108 112 H Carbon Dioxide 24 22 BUN 17 H 17 H Creatinine 0.88 0.82 Calcium 9.9 9.8 Urine 11/29/23 Range/Units 03:08 Urine Color Yellow Urine Appearance Clear Urine pH 8.0 (5.0-9.0) Ur Specific [place] 1.010 (1.005-1.025) Urine Protein Trace (Neg-Trace) mg/dL Urine Glucose (UA) Negative (Negative) mg/dL Assessment and Plan (1) Acute encephalopathy: Status: Acute Old left occipital infarct. Syncopal episode, possible seizure as she is amnesic for a period of time. Cardiac monitoring. EEG Plan This is a 63-year-old female with pertinent history of gastroparesis status post gastric pacemaker, insulin-dependent diabetes mellitus, hypertension, mood disorder, peripheral vascular disease status post right BKA, gastroesophageal reflux disease, history of CVA who was brought to the emergency department for concerns of difficulty with speech. #. Acute encephalopathy: Unclear history. As per the patient, she had a syncopal episode. Will monitor on telemetry. As per the son, questionable transient slurred speech which is now resolved ?concerning for TIA. ABCD2 score 6. Consulting Neurology and obtaining MRI. Patient is on aspirin and high-intensity statin #. Chest pain, atypical: Trend troponins #. Insulin-dependent diabetes mellitus: Reduce home basal insulin. Initiating Accu-Cheks with sliding scale insulin #. Hypertension: Continue home antihypertensives #. Mood disorder: Continue home mood stabilizers #. Peripheral vascular disease/history of CVA: On antiplatelet agent and high-intensity statin #. Gastroesophageal reflux disease: On PPI Med rec pending DVT prophylaxis: Lovenox Full code Procedures Date of Service Date of Service: 11/29/23
[2023-11-29] MEDS: Omeprazole 20 MG CAPSULE.DR PO (16:05)
--- NOTE | 2023-11-29 16:23 | PC.NURSE ---
Pt resting quietly in bed, medicated per MAY per pts request for Tylenol for headache and stomach ache, both ongoing.
[2023-11-29 17:53] LABS: Glucose, Whole Blood 141 mg/dL (60-115)
--- NOTE | 2023-11-29 20:53 | PM.EVENT ---
Event Note Date of Service: 11/29/23 Event Note: pt was seen and evaluated. vital reviewed, med rec reconciled. Pt presented with AMS with concern for stroke, CT no acute finding and there was plan for MRI, unfortunately she had an old stimulator that is [id number] and cannot be programed into MRI mode and also her intial presenting symptoms have resolved. Nitin thus oberve and follow Neuro recommendations. Time Spent With Patient Time: Total time managing care of this patient today ____ minutes.
[2023-11-29] MEDS: oxyCODONE HCl Immed Release 5 MG TABLET PO (20:54)
[2023-11-29] MEDS: Metoprolol Succinate ER 100 MG TAB.ER.24H PO (20:57)
[2023-11-29] MEDS: Losartan Potassium 50 MG TABLET 100 MG PO (20:57)
[2023-11-29] MEDS: Atorvastatin Calcium 80 MG TABLET PO (20:58)
--- NOTE | 2023-11-29 21:01 | PC.NURSE ---
pt medicated per MAY, c/o 11/27 abd pain
[2023-11-29 21:28] LABS: Glucose, Whole Blood 183 mg/dL (60-115)
[2023-11-29] MEDS: Amitriptyline HCl 50 MG TABLET PO (21:34)
[2023-11-30 03:26] VITALS: BP 116/53; PULSE 53; RESP 22; TEMP 36.6; O2SAT 93
[2023-11-30] MEDS: oxyCODONE HCl Immed Release 5 MG TABLET PO (04:58)
[2023-11-30] MEDS: Omeprazole 20 MG CAPSULE.DR PO ×2 (04:58→17:29)
[2023-11-30] MEDS: 0.9 % Sodium Chloride Flush 3 ML SYRINGE IVFLUSH ×4 (05:00→23:20)
[2023-11-30 07:48] LABS: Glucose, Whole Blood 126 mg/dL (60-115)
[2023-11-30 07:52] VITALS: BP 100/52; PULSE 52; RESP 16; TEMP 36.4; O2SAT 99
[2023-11-30] MEDS: Isosorbide Mononitrate 30 MG TAB.ER.24H PO (08:18)
[2023-11-30] MEDS: Topiramate 100 MG TABLET PO ×2 (08:18→21:15)
[2023-11-30] MEDS: Aspirin Enteric Coated 81 MG TABLET.DR PO (08:18)
[2023-11-30] MEDS: Enoxaparin Sodium 40 MG/0.4 ML SYRINGE SUBCUT (08:18)
[2023-11-30] MEDS: Gabapentin 100 MG CAPSULE PO ×2 (08:18→21:16)
[2023-11-30] MEDS: Metoprolol Succinate ER 100 MG TAB.ER.24H PO ×2 (08:18→21:15)
[2023-11-30] MEDS: amLODIPine Besylate 10 MG TABLET PO (08:18)
[2023-11-30] MEDS: polyethylene glycoL 3350 17 GM POWD.PACK PO (08:23)
[2023-11-30] MEDS: Acetaminophen 325 MG TABLET 650 MG PO ×2 (08:26→21:14)
--- NOTE | 2023-11-30 10:40 | P.PNIM_ITS ---
Subjective Subjective Date of Service: 11/30/23 Interval History: pt seen and examined, she is doing well today, no further episode of confusion, syncope or speech change or anything resembling seizure no arrythmia on monitor Physical Exam 2 Vital Signs: Vital Signs: Last Vital Signs Temp 97.5 F 11/30/23 07:52 Pulse 52 11/30/23 07:52 Resp 16 11/30/23 07:52 BP 100/52 L 11/30/23 07:52 Pulse Ox 99 11/30/23 07:52 O2 Del Method Room Air 11/30/23 07:52 BMI result Body Mass Index 29.2 General: AO X 3, no acute distress Resp: CTA bilateral CVS: S1,S2,RRR GI: +BS, NT, no distention Skin: No rash Neuro: motor grossly intact Psych: appropriate affect Objective Data Active Medications Acetaminophen (Acetaminophen 325 Mg Tablet) 650 mg PO Q6H PRN PRN Reason: Pain, Mild (Pain Scale 1-3), fever or headache Last Admin: 11/30/23 08:26 Dose: 650 mg Documented By: ALVARADO Amitriptyline HCl (Amitriptyline Hcl 50 Mg Tablet) 50 mg PO BEDTIME [facility] Last Admin: 11/29/23 21:34 Dose: 50 mg Documented By: ANNITA Amlodipine Besylate (Amlodipine Besylate 10 Mg Tablet) 10 mg PO DAILY [facility]; Protocol Last Admin: 11/30/23 08:18 Dose: 10 mg Documented By: ALVARADO Aspirin (Aspirin Enteric Coated 81 Mg Tablet.) 81 mg PO DAILY [facility] Last Admin: 11/30/23 08:18 Dose: 81 mg Documented By: ALVARADO Atorvastatin Calcium (Atorvastatin Calcium 80 Mg Tablet) 80 mg PO BEDTIME [facility] Last Admin: 11/29/23 20:58 Dose: 80 mg Documented By: ANNY Calcium Carbonate (Calcium Carbonate 750 Mg Tab.Chew) 750 mg PO Q4H PRN PRN Reason: Heartburn Enoxaparin Sodium (Enoxaparin Sodium 40 Mg/0.4 Ml Syringe) 40 mg SUBCUT Q24H [facility] Last Admin: 11/30/23 08:18 Dose: 40 mg Documented By: ALVARADO Ergocalciferol (Ergocalciferol (Vitamin D2) 1,250 Mcg Capsule) 1,250 mcg PO [facility] Gabapentin (Gabapentin 100 Mg Capsule) 100 mg PO BID [facility] Last Admin: 11/30/23 08:18 Dose: 100 mg Documented By: ALVARADO Glucose (Glucose Gel 15 Gm Gel..Gram.) 15 gm PO Q15M PRN; Protocol PRN Reason: per Hypoglycemia Standing Ord. Dextrose (D10) 250 mls @ 750 mls/hr IV Q15M PRN; Protocol PRN Reason: per Hypoglycemia Standing Ord. Insulin Glargine (Insulin Glargine,Hum.Rec.Anlog 100 Unit/Ml 10 Ml Vial) 30 unit SUBCUT DAILY PRN PRN Reason: Hyperglycemia Insulin Human Lispro (Insulin Lispro 100 Unit/Ml 3 Ml Vial) 0 unit SUBCUT QIDACHS [facility]; Protocol Last Admin: 11/30/23 08:19 Dose: Not Given Documented By: ALVARADO Non-Admin Reason: No Insulin Coverage Isosorbide Mononitrate (Isosorbide Mononitrate 30 Mg Tab.Er.24h) 30 mg PO DAILY [facility]; Protocol Last Admin: 11/30/23 08:18 Dose: 30 mg Documented By: ALAVRADO Lactulose (Lactulose 20 Gm/30 Ml Solution) 10 gm PO DAILY PRN PRN Reason: Constipation Losartan Potassium (Losartan Potassium 50 Mg Tablet) 100 mg PO BEDTIME [facility]; Protocol Last Admin: 11/29/23 20:57 Dose: 100 mg Documented By: ANNY Magnesium Hydroxide (Milk Of Magnesia 30 Ml Oral.Susp) 30 ml PO DAILY PRN PRN Reason: Constipation Melatonin (Melatonin 3 Mg Tablet) 6 mg PO BEDTIME PRN PRN Reason: Insomnia Metoprolol Succinate (Metoprolol Succinate Er 100 Mg Tab.Er.24h) 100 mg PO BID [facility]; Protocol Last Admin: 11/30/23 08:18 Dose: 100 mg Documented By: ALVARADO Nitroglycerin (Nitroglycerin 0.4 Mg Tab.Subl) 0.4 mg SUBLINGUAL Q5M PRN PRN Reason: Chest Pain Omeprazole (Omeprazole 20 Mg Capsule.Dr) 20 mg PO BID@0630,1630 [facility] Last Admin: 11/30/23 04:58 Dose: 20 mg Documented By: ANNITA Ondansetron HCl (Ondansetron Hcl 4 Mg/2 Ml Vial) 4 mg IVPUSH Q8H PRN PRN Reason: Nausea and Vomiting Oxycodone HCl (Oxycodone Hcl Immed Release 5 Mg Tablet) 5 mg PO Q6H PRN PRN Reason: Pain, Severe (Pain Scale 7-10) Last Admin: 11/30/23 04:58 Dose: 5 mg Documented By: ANNITA Polyethylene Glycol (Polyethylene Glycol 3350 17 Gm Powd.Pack) 17 gm PO DAILY [facility] Last Admin: 11/30/23 08:23 Dose: 17 gm Documented By: ALVARADO Sodium Chloride (0.9 % Sodium Chloride Flush 3 Ml Syringe) 3 ml IVFLUSH QSHIFT [facility] Last Admin: 11/30/23 08:19 Dose: 3 ml Documented By: ALVARADO Topiramate (Topiramate 100 Mg Tablet) 100 mg PO BID [facility] Last Admin: 11/30/23 08:18 Dose: 100 mg Documented By: ALVARADO Labs 11/29/23 05:03 11/29/23 05:03 Labs: Laboratory Results - last 24 hr 11/29/23 11/29/23 11/29/23 00:13 00:19 12:25 Whole Blood PT 12.3 Whole Blood INR 1.0 POC Glucose 169 H 127 H 11/29/23 11/29/23 11/30/23 17:50 21:24 07:41 Whole Blood PT Whole Blood INR POC Glucose 141 H 183 H 126 H Assessment and Plan (1) Acute encephalopathy: Status: Acute Plan 63-year-old female with pertinent history of gastroparesis status post gastric pacemaker, insulin-dependent diabetes mellitus, hypertension, mood disorder, peripheral vascular disease status post right BKA, gastroesophageal reflux disease, history of CVA who was brought to the emergency department for concerns of difficulty with speech. Transient AMS, speech changes. DDx: TIA, or seizure. CTA of head and neck negative for stroke, has an old stroke -Neuro saw and recommends EEG since MRI cannot be done due to gastric pacemaker for gastroparesis Chest pain, atypical: Trend troponins Diabetes--BS,controll on SSI, she's on lantus PRN? -check A1C Hypertension: mdur, losartan, metoprolol Mood disorder: Continue home mood stabilizers Peripheral vascular disease/history of CVA: On antiplatelet agent and high- intensity statin Gastroesophageal reflux disease: On PPI DVT Prophylaxis: Lovenox Continue cardiac monitorinng, EEG tomorrow Quality Stroke Does the patient have a stroke diagnosis?: No VTE Prior VTE?: No VTE Risk Level:: Medical - moderate - high VTE Device Contraindication: Treatment Not Indicated VTE Drug Contraindication: N/A - Med Ordered
[2023-11-30 11:37] LABS: Anion Gap 8 (12-20); Blood Urea Nitrogen 15 mg/dL (9-16); Calcium 9.1 mg/dL (8.4-10.2); Carbon Dioxide 21 mmol/L (22-29); Chloride 112 mmol/L (96-108); Estimated Glomerular Filt Rate > 60; Glucose Random 237 mg/dL (60-115); Potassium 4.3 mmol/L (3.3-5.1); Sodium 137 mmol/L (135-145)
[2023-11-30 11:39] VITALS: BMI 29.2
[2023-11-30 11:39] LABS: Estimated Average Glucose 140 mg/dL; Hemoglobin A1c % 6.5 % (<6.0)
--- NOTE | 2023-11-30 11:42 | MHC.CLN ---
PT WITH INCREASED NUTRITION RISK R/T PRESSURE INJURY PT WITH POOR PO INTAKE RANGING FROM 25-50% DIET RX: 1800DM-APPROPRIATE RECOMMEND ADDING ENSURE MAX BID TO PROMOTE WOUND HEALING SUPP TO PROVIDE 300KCALS, 60G PROTEIN MONITOR PO INTAKE AND ENCOURAGE SUPPLEMENTS SEE ALSO FULL CLINICAL NUTRITION ASSESSMENT
[2023-11-30 11:44] LABS: Glucose, Whole Blood 236 mg/dL (60-115)
[2023-11-30 11:51] VITALS: BP 125/79; PULSE 52; RESP 16; TEMP 36.7; O2SAT 98
[2023-11-30] MEDS: Insulin Lispro 100 UNIT/ML 3 ML VIAL SUBCUT (13:36)
--- NOTE | 2023-11-30 14:52 | HO.WOUND ---
Wound Consult: Initial 63yr old?female admitted to [facility] on 11/29/23 - See progress notes and H&P for detailed history.? Wound consult placed for Left Heel Pressure Injury POA.? Patient agreeable to assessment and photo documentation.? Left Medial Heel Etiology: Unstageable Pressure injury ?Present on Admission Measurements: 1.2cm x 1.2cm x 0cm Wound Bed: central dark brown black intact tissue no fluctuance noted - dark nonblanchable purple noted Drainage / Odor: None Edges: ? attached Victoira wound: ? pink blanchable erythema - No Induration, Fluctuance or Warmth noted Pain: denies - reports neuropathy Goals of Treatment: ? Off Load Pressure Recommendations: 1. Turn and Reposition every 2 hours and as needed for patient comfort.? Use pillows or wedges to support off loading positions. 2. Off Load all bony prominences with use of pillows and heel boots if needed.? Apply Preventative foams where needed. ? 3. Monitor for incontinence and moisture control, use barrier creams when needed for prevention and treatment. 4. Provide adequate and supplemental nutrition.? 5. Order low air loss mattress. 6. When applicable maintain blood glucose levels per Providers order. 7. Left Heel - Off Load Pressure from heels off of surface of bed or recliner chair. Apply Skin Prep allow to dry. Cover with foam dressing peel back and assess Q shift change every 5 days. Re-consult wound care Nurse for wound deterioration or wound changes.
[2023-11-30 16:04] VITALS: BP 113/79; PULSE 56; RESP 18; TEMP 36.1; O2SAT 98
[2023-11-30 16:40] LABS: Glucose, Whole Blood 109 mg/dL (60-115)
[2023-11-30 20:00] VITALS: BP 152/60; PULSE 68; RESP 20; TEMP 36.3; O2SAT 98
[2023-11-30 20:17] LABS: Glucose, Whole Blood 143 mg/dL (60-115)
[2023-11-30] MEDS: Amitriptyline HCl 50 MG TABLET PO (21:16)
[2023-11-30] MEDS: Atorvastatin Calcium 80 MG TABLET PO (21:16)
[2023-11-30] MEDS: Losartan Potassium 50 MG TABLET 100 MG PO (21:27)
[2023-11-30 23:24] VITALS: BP 149/65; PULSE 61; RESP 23; TEMP 36.2; O2SAT 97
[2023-12-01 03:45] VITALS: BP 130/55; PULSE 57; RESP 21; TEMP 36.1; O2SAT 95
[2023-12-01] MEDS: Omeprazole 20 MG CAPSULE.DR PO (06:04)
--- NOTE | 2023-12-01 06:04 | P.PNIM_ITS ---
Subjective Subjective Date of Service: 12/01/23 Interval History: She is doing well and has not had any change in her status, remains at her baseline and would like to go home today Physical Exam 2 Vital Signs: Vital Signs: Last Vital Signs Temp 96.9 F 12/01/23 03:45 Pulse 57 12/01/23 03:45 Resp 21 H 12/01/23 03:45 BP 130/55 L 12/01/23 03:45 Pulse Ox 95 12/01/23 03:45 O2 Del Method Room Air 12/01/23 03:45 BMI result Body Mass Index 29.2 General: AO X 3, no acute distress Resp: CTA bilateral CVS: S1,S2,RRR GI: +BS, NT, no distention Skin: No rash Neuro: motor grossly intact Psych: appropriate affect Objective Data Active Medications Acetaminophen (Acetaminophen 325 Mg Tablet) 650 mg PO Q6H PRN PRN Reason: Pain, Mild (Pain Scale 1-3), fever or headache Last Admin: 11/30/23 21:14 Dose: 650 mg Documented By: THIERNO Amitriptyline HCl (Amitriptyline Hcl 50 Mg Tablet) 50 mg PO BEDTIME ON [facility] Last Admin: 11/30/23 21:16 Dose: 50 mg Documented By: THIERNO Amlodipine Besylate (Amlodipine Besylate 10 Mg Tablet) 10 mg PO DAILY [facility]; Protocol Last Admin: 11/30/23 08:18 Dose: 10 mg Documented By: ALVARADO Aspirin (Aspirin Enteric Coated 81 Mg Tablet.) 81 mg PO DAILY ON [facility] Last Admin: 11/30/23 08:18 Dose: 81 mg Documented By: ALVARADO Atorvastatin Calcium (Atorvastatin Calcium 80 Mg Tablet) 80 mg PO BEDTIME ON [facility] Last Admin: 11/30/23 21:16 Dose: 80 mg Documented By: THIERNO Calcium Carbonate (Calcium Carbonate 750 Mg Tab.Chew) 750 mg PO Q4H PRN PRN Reason: Heartburn Enoxaparin Sodium (Enoxaparin Sodium 40 Mg/0.4 Ml Syringe) 40 mg SUBCUT Q24H ON [facility] Last Admin: 11/30/23 08:18 Dose: 40 mg Documented By: ALVARADO Ergocalciferol (Ergocalciferol (Vitamin D2) 1,250 Mcg Capsule) 1,250 mcg PO [facility] Gabapentin (Gabapentin 100 Mg Capsule) 100 mg PO BID [facility] Last Admin: 11/30/23 21:16 Dose: 100 mg Documented By: THIERNO Glucose (Glucose Gel 15 Gm Gel..Gram.) 15 gm PO Q15M PRN; Protocol PRN Reason: per Hypoglycemia Standing Ord. Dextrose (D10) 250 mls @ 750 mls/hr IV Q15M PRN; Protocol PRN Reason: per Hypoglycemia Standing Ord. Insulin Glargine (Insulin Glargine,Hum.Rec.Anlog 100 Unit/Ml 10 Ml Vial) 30 unit SUBCUT DAILY PRN PRN Reason: Hyperglycemia Insulin Human Lispro (Insulin Lispro 100 Unit/Ml 3 Ml Vial) 0 unit SUBCUT QIDACHS ON [facility]; Protocol Last Admin: 11/30/23 21:28 Dose: Not Given Documented By: THIERNO Non-Admin Reason: No Insulin Coverage Isosorbide Mononitrate (Isosorbide Mononitrate 30 Mg Tab.Er.24h) 30 mg PO DAILY [facility]; Protocol Last Admin: 11/30/23 08:18 Dose: 30 mg Documented By: ALVARADO Lactulose (Lactulose 20 Gm/30 Ml Solution) 10 gm PO DAILY PRN PRN Reason: Constipation Losartan Potassium (Losartan Potassium 50 Mg Tablet) 100 mg PO BEDTIME ON [facility]; Protocol Last Admin: 11/30/23 21:27 Dose: 100 mg Documented By: THIERNO Magnesium Hydroxide (Milk Of Magnesia 30 Ml Oral.Susp) 30 ml PO DAILY PRN PRN Reason: Constipation Melatonin (Melatonin 3 Mg Tablet) 6 mg PO BEDTIME PRN PRN Reason: Insomnia Metoprolol Succinate (Metoprolol Succinate Er 100 Mg Tab.Er.24h) 100 mg PO BID ON [facility]; Protocol Last Admin: 11/30/23 21:15 Dose: 100 mg Documented By: THIERNO Nitroglycerin (Nitroglycerin 0.4 Mg Tab.Subl) 0.4 mg SUBLINGUAL Q5M PRN PRN Reason: Chest Pain Omeprazole (Omeprazole 20 Mg Capsule.Dr) 20 mg PO BID@0630,1630 ON [facility] Last Admin: 11/30/23 17:29 Dose: 20 mg Documented By: ALVARADO Ondansetron HCl (Ondansetron Hcl 4 Mg/2 Ml Vial) 4 mg IVPUSH Q8H PRN PRN Reason: Nausea and Vomiting Oxycodone HCl (Oxycodone Hcl Immed Release 5 Mg Tablet) 5 mg PO Q6H PRN PRN Reason: Pain, Severe (Pain Scale 7-10) Last Admin: 11/30/23 04:58 Dose: 5 mg Documented By: ANNITA Polyethylene Glycol (Polyethylene Glycol 3350 17 Gm Powd.Pack) 17 gm PO DAILY [facility] Last Admin: 11/30/23 08:23 Dose: 17 gm Documented By: ALVARADO Sodium Chloride (0.9 % Sodium Chloride Flush 3 Ml Syringe) 3 ml IVFLUSH QSHIFT ON [facility] Last Admin: 11/30/23 23:20 Dose: 3 ml Documented By: THIERNO Topiramate (Topiramate 100 Mg Tablet) 100 mg PO BID ON [facility] Last Admin: 11/30/23 21:15 Dose: 100 mg Documented By: THIERNO Labs 11/29/23 05:03 11/30/23 11:06 Labs: Laboratory Results - last 24 hr 11/29/23 11/29/23 11/30/23 00:13 00:19 07:41 Whole Blood PT 12.3 Whole Blood INR 1.0 Anion Gap Estim Creat Clear Calc Estimated GFR POC Glucose 169 H 126 H Random Glucose Estimat Average Glucose Hemoglobin A1c % Calcium 11/30/23 11/30/23 11/30/23 11:06 11:11 16:31 Whole Blood PT Whole Blood INR Anion Gap 8 L Estim Creat Clear Calc 68.0 Estimated GFR > 60 POC Glucose 236 H 109 Random Glucose 237 H Estimat Average Glucose 140 Hemoglobin A1c % 6.5 H Calcium 9.1 D 11/30/23 20:09 Whole Blood PT Whole Blood INR Anion Gap Estim Creat Clear Calc Estimated GFR POC Glucose 143 H Random Glucose Estimat Average Glucose Hemoglobin A1c % Calcium Assessment and Plan (1) Acute encephalopathy: Status: Acute Plan 63-year-old female with pertinent history of gastroparesis status post gastric pacemaker, insulin-dependent diabetes mellitus, hypertension, mood disorder, peripheral vascular disease status post right BKA, gastroesophageal reflux disease, history of CVA who was brought to the emergency department for concerns of difficulty with speech. Transient AMS, speech changes. DDx: TIA, or seizure. CTA of head and neck negative for stroke, has an old stroke. She has not had any further change since admssion -Neuro saw and recommends EEG since MRI cannot be done due to gastric pacemaker for gastroparesis, EEG planned for today if cannot be done then outpatient Chest pain, atypical: resolved, Diabetes--BS,controll on SSI, she's on lantus PRN? -Hgb A1C is 6.7 Hypertension, controlled - mdur, losartan, metoprolol Mood disorder -Continue home mood stabilizers Peripheral vascular disease/history of CVA: On antiplatelet agent and high- intensity statin Gastroesophageal reflux disease: On PPI DVT Prophylaxis: Lovenox Continue cardiac monitorinng, EEG today and then home Quality Stroke Does the patient have a stroke diagnosis?: No VTE Prior VTE?: No VTE Risk Level:: Medical - moderate - high VTE Device Contraindication: Treatment Not Indicated VTE Drug Contraindication: N/A - Med Ordered
[2023-12-01] MEDS: ondansetron HCL 4 MG/2 ML VIAL IVPUSH (06:06)
[2023-12-01 07:20] LABS: Glucose, Whole Blood 148 mg/dL (60-115)
[2023-12-01 07:26] VITALS: BP 124/59; PULSE 62; RESP 18; TEMP 36.4; O2SAT 97
--- NOTE | 2023-12-01 07:45 | P.DS_ITS ---
DS: Providers Provider Date of Service: 12/01/23 Date of admission: 11/29/23 02:44 Date of discharge: 12/01/23 Primary care physician: Rafiq Zhong MD Consults: 11/29/23 02:55 Consult to Neurology Routine Consulting Provider: [facility] Reason for consultation: syncope, ?TIA 11/30/23 08:21 Consult to Wound Care Routine Reason for consultation: left heel unstagable pressure injury DS: Diagnosis Discharge Diagnosis (1) Acute encephalopathy: Status: Acute DS: Summary Hospital Course Hospital Course: admission hpi Chief Complaint: AMS This is a 63-year-old female with pertinent history of gastroparesis status post gastric pacemaker, insulin-dependent diabetes mellitus, hypertension, mood disorder, peripheral vascular disease status post right BKA, gastroesophageal reflux disease, history of CVA who was brought to the emergency department for concerns of difficulty with speech. Patient states that around 22:30, she was trying to call her son and the next thing she knew she was on the stretcher. Patient thinks she passed out. Unable to contact the son at this time. As per ER provider, the son noticed that the patient was with difficulty in speech. Her speech is at baseline at the time of my evaluation. Denies focal extremity weakness. States she also had midsternal chest discomfort which is now resolved. No fever, chills, palpitations, shortness of breath, abdominal pain, changes in urinary or bowel habits. In the emergency department, CTA without any acute abnormality Hospital course: Patient presented with above mentined, with initial concern for stroke vs TIA. Work up with CT of the head and neck has been negative for stroke, while an MRI was requested, this could not be done as patient has an non fuctional gastric stimulator that cannot be programmed in MRI mode. 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 While an EEG cannot be done today or possibly tomorrow, she prefers going home and have it done at later time. Time Attestation Discharge Coordination Time (in mins): 25 Quality: Safe Use of Opioids Does Pt have an Active Cancer Diagnosis on the Problem List?: No Quality: Stroke Does the patient have a stroke diagnosis?: No Physical Exam Vital Signs: Vital Signs: Last Vital Signs Temp 97.5 F 11/30/23 07:52 Pulse 52 11/30/23 07:52 Resp 16 11/30/23 07:52 BP 100/52 L 11/30/23 07:52 Pulse Ox 99 11/30/23 07:52 O2 Del Method Room Air 11/30/23 07:52 BMI result Body Mass Index 29.2 DS: Data Data Completed and Pending Completed studies during hospitalization [Text1]: Procedures Excision of Right Large Intestine, Via Natural or Artificial Opening Endoscopic, Diagnostic (04/27/23) Labs on day of discharge: Laboratory Results - last 24 hr 11/29/23 11/29/23 11/29/23 00:13 00:19 12:25 Whole Blood PT 12.3 Whole Blood INR 1.0 POC Glucose 169 H 127 H 11/29/23 11/29/23 11/30/23 17:50 21:24 07:41 Whole Blood PT Whole Blood INR POC Glucose 141 H 183 H 126 H Discharge Plan Discharge Anticipated Discharge Date/Time: 11/30/23 10:25 Patient Disposition: Home, Self-Care Discharge Diagnosis: Transient altered mental status Referrals: Rafiq Zhong MD [Primary Care Provider] - 1 Week Discharge Medications: Continued isosorbide mononitrate 30 mg Tablet Extended Release 24 Hr 30 mg PO DAILY omeprazole 20 mg Capsule,Delayed Release(Dr/Ec) 20 mg PO BID@0630,1630 topiramate 100 mg Tablet 100 mg PO BID nitroglycerin [Nitrostat] 0.4 mg Tablet, Sublingual 0.4 mg SUBLINGUAL Q5M PRN (Reason: Chest Pain) Rx Instructions: do not exceed 3 doses per episode ergocalciferol (vitamin D2) 1,250 mcg (50,000 unit) Capsule 1,250 mcg PO RIVER insulin glargine [Lantus Solostar U-100 Insulin] 100 unit/mL (3 mL) Insulin Pen 30 unit SUBCUT DAILY PRN (Reason: Hyperglycemia) amitriptyline 50 mg tablet 50 mg PO BEDTIME aspirin 81 mg tablet,delayed release (DR/EC) 81 mg PO DAILY atorvastatin 80 mg tablet 80 mg PO BEDTIME losartan 100 mg tablet 100 mg PO BEDTIME metoprolol succinate 100 mg tablet extended release 24 hr 100 mg PO BID gabapentin 100 mg capsule 100 mg PO BID polyethylene glycol 3350 17 gram/dose powder 17 g PO DAILY acetaminophen 325 mg Tablet 650 mg PO Q6H PRN (Reason: Pain) lactulose 10 gram/15 mL solution 15 ml PO DAILY PRN (Reason: Constipation) amlodipine 10 mg tablet 10 mg PO DAILY Diet: Diabetic diet Activity on Discharge: As tolerated Stand Alone Forms: Patient Portal Discharge page Print Language: Thai Care Plan Goals: return to baseline mental status Health Concerns: transient altered mental status Plan of Treatment: resume all medication and care as before to have EEG done on outpatient basis, EEG not available until tomorrow, she prefers going home and having it done on outpatient basis Assessment: see above
[2023-12-01] MEDS: Gabapentin 100 MG CAPSULE PO (08:22)
[2023-12-01] MEDS: Aspirin Enteric Coated 81 MG TABLET.DR PO (08:22)
[2023-12-01] MEDS: Topiramate 100 MG TABLET PO (08:22)
[2023-12-01] MEDS: amLODIPine Besylate 10 MG TABLET PO (08:22)
[2023-12-01] MEDS: Metoprolol Succinate ER 100 MG TAB.ER.24H PO (08:22)
[2023-12-01] MEDS: Isosorbide Mononitrate 30 MG TAB.ER.24H PO (08:22)
[2023-12-01] MEDS: Acetaminophen 325 MG TABLET 650 MG PO (08:23)
[2023-12-01] MEDS: 0.9 % Sodium Chloride Flush 3 ML SYRINGE IVFLUSH (08:23)
[2023-12-01] MEDS: Enoxaparin Sodium 40 MG/0.4 ML SYRINGE SUBCUT (08:33)
--- NOTE | 2023-12-01 10:49 | MHC.CM.PN ---
Pt is medically cleared for discharge home self-care, pts daughter to transport her home.
[2023-12-01 11:26] LABS: Glucose, Whole Blood 218 mg/dL (60-115)
--- NOTE | 2023-12-01 11:41 | PC.NURSE ---
pt is still waiting for her ride home
[2023-12-01] MEDS: Insulin Lispro 100 UNIT/ML 3 ML VIAL SUBCUT (11:43)
--- NOTE | 2023-12-01 11:46 | MHC.CLN ---
F/U PT WITH INCREASED NUTRITION RISK R/T PRESSURE INJURY APPETITE INCREASED CONSUMING 75-100% DIET RX: 1800DM-APPROPRIATE PT RECEIVING ENSURE MAX BID TO PROMOTE WOUND HEALING SUPP TO PROVIDE 300KCALS, 60G PROTEIN MONITOR PO INTAKE AND ENCOURAGE SUPPLEMENTS
== END 2023-12-01 12:17 | disposition home or self-care (01) ==
LOC: HO.ED 02:25 → HO.EDOVER 03:46 → HO.IMC 19:32
PROVIDERS: Admitting Provider Student in an Organized Health Care Education/Training Program; Emergency Provider Internal Medicine; PCP Internal Medicine; Visit Provider Internal Medicine
DX: G93.40 Encephalopathy, unspecified (principal); K31.84 Gastroparesis; I69.954 Hemiplegia and hemiparesis following unspecified cerebrovascular disease affecting left non-dominant side; I69.222 Dysarthria following other nontraumatic intracranial hemorrhage; I10 Essential (primary) hypertension; F39 Unspecified mood [affective] disorder; K21.9 Gastro-esophageal reflux disease without esophagitis; R07.9 Chest pain, unspecified; E11.43 Type 2 diabetes mellitus with diabetic autonomic (poly)neuropathy; I73.9 Peripheral vascular disease, unspecified; Z96.82 Presence of neurostimulator; Z79.4 Long term (current) use of insulin; Z89.511 Acquired absence of right leg below knee; Z79.899 Other long term (current) drug therapy; Z99.3 Dependence on wheelchair
CPT/HCPCS: 36415; 70496; 70498; 80048; 80061; 81003; 82947; 83036; 84484; 85025; 85027; 85610; 85730; 93005; 96361; 96372; 96374; 99222; 99285; J1650; J2405; Q9967

== ENCOUNTER → 2023-11-29 01:20 | Outpatient (BNV) | payer MEDICAID, SELFPAY | PROVIDERS: Emergency Provider Internal Medicine; PCP Internal Medicine; Visit Provider Student in an Organized Health Care Education/Training Program | DX: G93.40 Encephalopathy, unspecified (principal) | CPT/HCPCS: 99222; 99232; 99238; 99499 ==

== ENCOUNTER → 2023-11-29 02:44 | Outpatient (BNV) | payer MEDICAID, SELFPAY | PROVIDERS: Admitting Provider Student in an Organized Health Care Education/Training Program; Emergency Provider Internal Medicine; PCP Internal Medicine; Visit Provider Psychiatry & Neurology Neurology | DX: G93.40 Encephalopathy, unspecified (principal) | CPT/HCPCS: 99222 ==

== ENCOUNTER 2023-12-15 20:27 | Emergency (ER) | payer MEDICAID, SELFPAY ==
--- NOTE | ~2023-12-15 | CT_ITS ---
EXAMINATION: CT ABDOMEN AND PELVIS WITHOUT CONTRAST CLINICAL INFORMATION: Diffuse abdominal pain. COMPARISON: October 26, 2023 TECHNIQUE: Multidetector volumetric imaging was performed from the superior aspect of the liver through the pubic symphysis. Sagittal and coronal reformatted images were obtained on the technologist's workstation. This CT examination was performed using dose optimization techniques as appropriate, variously including the following: *Automated exposure control *Adjustment of mA and/or kV according to patient size (this includes techniques or standardized protocols for targeted exams where dose is matched to indication/reason for exam; i.e. extremities or head) *Use of iterative reconstruction technique DLP: 543 mGy-cm FINDINGS: LUNG BASES: There is a small right middle lobe infiltrate. Multiple basilar nodules are again seen. LIVER, GALLBLADDER, AND BILIARY TREE: The liver is irregular in contour. No focal liver lesions are seen. There is intrahepatic biliary air. The gallbladder is mildly distended. No calcified gallstones are seen. PANCREAS: Unremarkable. SPLEEN: Unremarkable. ADRENAL GLANDS: Unremarkable. KIDNEYS AND URETERS: The kidneys are normal in size, shape, and attenuation. No hydronephrosis, hydroureter, or calculi seen. No perinephric stranding. BLADDER: Unremarkable. GASTROINTESTINAL TRACT: There is retained stool with mild thickening of the distal descending and sigmoid colon with mild adjacent infiltrative change. The appendix is visualized and is within normal limits. ABDOMINAL WALL: No significant hernia is appreciated. LYMPH NODES: Normal. VASCULAR: There is atherosclerotic plaque of the abdominal aorta and proximal branches. Extensive renal vascular calcifications are seen. PELVIC VISCERA: Unremarkable. OSSEOUS STRUCTURES: The bony structures are diffusely heterogeneous/osteopenic. CT/CT abdomen pelvis wo IV con IMPRESSION: 1. Mild thickening of the distal descending and sigmoid colon with mild adjacent infiltrative change suggestive of colitis. 2. Irregular contour of the liver suggestive of cirrhosis. Intrahepatic biliary air significantly increased compared to prior. 3. Extensive atherosclerotic disease. 4. Heterogeneous appearance to the bony structures. 5. Small right middle lobe infiltrate. Consider early pneumonia. Fleischner guidelines were followed. Electronically signed by: Girma Hernandez MD 12/15/2023 11:44 PM EDT
[2023-12-15 20:30] VITALS: BP 143/80; PULSE 73; O2SAT 96
--- NOTE | 2023-12-15 20:50 | ED.ABDPAIN ---
HPI - Abdominal Pain General Chief Complaint: Abdominal Pain Stated Complaint: Lower abdominal pain, no BM today, decrease urine Time Seen by Provider: 12/15/23 22:23 Source: patient Mode of arrival: wheelchair Limitations: no limitations History of Present Illness ED Provider: Dr. Man HPI narrative: Patient is a 63yo female with gastroparesis sp peg placement for nutrition, DM, who presents with diffuse abdominal pain. Patient states no prior history of surgery. She denies fever or vomiting. Related Data Home Medications ?Medication ?Instructions ?Recorded ?Confirmed isosorbide mononitrate 30 mg 30 mg PO DAILY 05/12/20 11/29/23 tablet,extended release 24 hr omeprazole 20 mg capsule,delayed 20 mg PO BID@0630,1630 05/12/20 11/29/23 release topiramate 100 mg tablet 100 mg PO BID 05/12/20 11/29/23 ergocalciferol (vitamin D2) 1,250 1,250 mcg PO RIVER 07/15/21 11/29/23 mcg (50,000 unit) capsule nitroglycerin 0.4 mg sublingual 0.4 mg sublingual Q5M PRN Chest 07/15/21 11/29/23 tablet (Nitrostat) Pain insulin glargine 100 unit/mL (3 30 unit subcut DAILY PRN 07/22/21 11/29/23 mL) subcutaneous pen (Lantus Hyperglycemia Solostar U-100 Insulin) amitriptyline 50 mg tablet 50 mg PO BEDTIME 04/27/23 11/29/23 aspirin 81 mg tablet,delayed 81 mg PO DAILY 04/27/23 11/29/23 release atorvastatin 80 mg tablet 80 mg PO BEDTIME 04/27/23 11/29/23 gabapentin 100 mg capsule 100 mg PO BID 04/27/23 11/29/23 losartan 100 mg tablet 100 mg PO BEDTIME 04/27/23 11/29/23 metoprolol succinate 100 mg 100 mg PO BID 04/27/23 11/29/23 tablet,extended release 24 hr amlodipine 10 mg tablet 10 mg PO DAILY 07/01/23 11/29/23 lactulose 10 gram/15 mL oral 15 ml PO DAILY PRN Constipation 07/01/23 11/29/23 solution acetaminophen 325 mg tablet 650 mg PO Q6H PRN Pain 11/29/23 11/29/23 polyethylene glycol 3350 17 17 g PO DAILY 11/29/23 11/29/23 gram/dose oral powder Previous Rx's ?Medication ?Instructions ?Recorded levofloxacin 500 mg tablet 500 mg PO Q24H 10 days #10 tabs 12/16/23 metronidazole 500 mg tablet 500 mg PO TID #30 tabs 12/16/23 naproxen 500 mg tablet (Naprosyn) 500 mg PO BID #20 tabs 12/16/23 Allergies Allergy/AdvReac Type Severity Reaction Status Date / Time Penicillins [PENICILLINS] Allergy Mild HIVES Verified 12/15/23 20:53 clarithromycin [From Biaxin] Allergy Unknown HIVES Verified 12/15/23 20:53 penicillin V Allergy Unknown rash, Verified 12/15/23 20:53 throat tight bioxin Allergy Unknown Unknown Uncoded 12/15/23 20:53 penicillin Allergy Unknown Unknown Uncoded 12/15/23 20:53 Review of Systems Review of Systems Yes all other systems are reviewed and are negative Denies Sensory deficit (Neuro) PMFSH Past Medical History Medical History Cerebrovascular accident Diabetes type 2 with atherosclerosis of arteries of extremities Diabetic foot ulcer Diabetic neuropathy associated with diabetes mellitus due to underlying condition Hypotonic neurogenic bladder Delirium due to another medical condition Hyperglycemia Encephalopathy acute CVA (cerebral vascular accident) History of peptic ulcer disease Cholelithiasis Myocardial infarction Wheelchair bound Below knee amputation CAD (coronary artery disease) Chronic pain syndrome Depression Anxiety HTN (hypertension) Liver lesion History of gastrostomy tube placement Gastroparesis IDDM (insulin dependent diabetes mellitus) Surgical History History of back surgery Hx of BKA Family History Family History Father Coronary arteriosclerosis Social History Social History Household Members: None Housing: Apartment Are you a primary sub acute care nurse to a significant other at home: No Do you presently have visiting nurse or other home services: Yes (daughter is [employer]) Unable to assess alcohol history related to: Unknown Alcohol intake: former Comment: 1:1 sitter Patient Tobacco Use Status: Never used Tobacco Smoked in Last 30 Days: No Second Hand Smoke Exposure: No Use of substances other than those prescribed or required for medical reasons: No Advance Directives: Yes Advance Directives on File: Yes Advance Directives Date on File: 05/12/20 Do you have a plan to hurt others: No Plan service: No Current occupational status: unemployed and disabled Physical Exam ED Vital Signs: Vital Signs - 24 hr 12/15/23 20:52 12/15/23 22:13 Temperature 98.4 F 97.7 F Pulse Rate 77 73 Respiratory Rate 18 20 Blood Pressure 126/55 L 146/63 H Pulse Oximetry 98 98 Oxygen Delivery Method Room Air Room Air BMI result Body Mass Index 28.1 Const Other: female looking much older than stated age Nutritional Appearance: average body habitus Orientation/consciousness: oriented to person and patient oriented x3 Limitations: no limitations HENMT Head: Yes normal to inspection Ears: external ears normal General nose exam: Normal external nose present Mouth: Normal oral and palatal mucosa present and oropharynx normal Throat: Yes posterior oropharynx normal Eyes General: appearance normal, both eyes and all related structures Neck Neck: Yes normal visual inspection Chest Chest palpation & inspection: normal inspection of the chest Resp Auscultation: clear to auscultation bilaterally Cardio Jugular venous distension: no JVD Rate: regular rate Rhythm: regular rhythm Heart sounds: S1 normal heart sound present and S2 normal heart sound present GI Other: slightly distended abdomen, quiet bowel sounds, old peg scar, diffusely tender General: Yes no CVA tenderness Back/Spine/Pelvis Back: no CVA tenderness Skin General skin exam: no rashes or lesions noted Neuro General: oriented to person and patient oriented x3 Cranial nerves: Yes CN's II-XII intact bilaterally Motor exam (neuro): 5/5 motor strength present throughout Sensory Exam: No Sensory deficit (Neuro) Extrem General: Yes normal to inspection Psych Appearance: grossly normal Course Course Course Narrative: This is a Rapid Medical Exam performed in triage by Leelee Chaudhry PA-C. Full HPI, ROS and PE to be performed by primary ED provider. 63-year-old female with a past medical history of gastroparesis s/p gastric pacemaker, gastritis, colitis, metabolic encephalopathy, ischemic colitis, diabetes, CAD presenting to the ED c/o diffuse abdominal pain described as cramping with nausea and diarrhea. Denies urinary symptoms PE: Low-grade fever, in wheelchair, abdomen soft diffusely tender, no rebound or guarding Plan: Labs, UA Reevaluation(s) Reevaluation #1: CT positive for colitis and retained stool. Will start on levaquin and flagy. Will place patient on clear liquid diety Time: 00:03 Medical Decision Making Differential Diagnosis Differential Diagnoses: The differential diagnosis associated with the presentation includes (appendicitis, colitis, hepatitis, pancreatitis, bowel obstruction) Admission/Observation Consideration of admission/observation: Escalation of care including admission/observation considered (upon arrival patient considered for admission) Lab Data 12/15/23 21:07 12/15/23 21:07 Labs: Lab Results 12/15/23 Range/Units 21:07 WBC 13.7 H (4.8-10.8) X10*3/uL RBC 3.00 L (4.20-5.50) X10*6/uL Hgb 9.8 L (12.0-16.0) g/dl Hct 28.2 L (37.0-47.0) % MCV 94.0 (80.0-98.0) fL MCH 32.7 (27.0-33.0) pg MCHC 34.8 (31.0-35.0) g/dl RDW 13.3 (11.0-16.0) % Plt Count 234 (160-400) X10*3/uL MPV 10.3 (9.4-12.3) fL Immature Gran % (Auto) 0.2 (0.0-0.4) % Neut % (Auto) 86.6 H (45-73) % Lymph % (Auto) 7.8 L (20-40) % [place] % (Auto) 4.8 (2-11) % Eos % (Auto) 0.4 (0-4) % Baso % (Auto) 0.2 (0-2) % Lymph # (Auto) 1.1 L (1.2-4.9) X10*3/uL [place] # (Auto) 0.7 (0.1-1.2) X10*3/uL Eos # (Auto) 0.1 (0.0-0.4) X10*3/uL Baso # (Auto) 0.0 (0.0-0.2) X10*3/uL Abs Immat Gran (auto) 0.03 (0.00-0.03) X10*3/uL Absolute Neuts (auto) 11.8 H (2.0-8.3) x10*3/uL Absolute Nucleated RBC 0.000 (0.0-0.012) X10*3/uL Nucleated RBC % (auto) 0.0 (0.0-0.2) /100WBC Sodium 137 (135-145) mmol/L Potassium 3.7 (3.3-5.1) mmol/L Chloride 108 (96-108) mmol/L Carbon Dioxide 20 L (22-29) mmol/L Anion Gap 13 (12-20) BUN 18 H (9-16) mg/dL Creatinine 0.80 (0.5-1.4) mg/dL Estim Creat Clear Calc 71.1 Estimated GFR > 60 Random Glucose 154 H (60-115) mg/dL Calcium 10.2 D (8.4-10.2) mg/dL Magnesium 1.5 L (1.6-2.6) mg/dL Total Bilirubin 0.4 (0.0-1.0) mg/dL Direct Bilirubin 0.2 (0.0-0.5) mg/dL AST 16 (5-31) U/L ALT 8 (0-31) U/L Alkaline Phosphatase 68 (39-117) U/L Total Protein 7.3 (6.5-8.0) g/dL Albumin 4.0 (3.5-5.0) g/dL Lipase 8 (8-78) U/L Independent Interpretation I performed an independent interpretation of an: CT Scan (abd/pel: retained stool) Radiology Impression Discussion of test interpretation with radiology: I have reviewed the radiologist's reading. (colitis seen) External Record Review External record reviewed: Outpatient record Chronic Conditions Patient?s care impacted by: Diabetes and Hypertension Social Determinants Patient?s care significantly limited by Social Determinants of Health including: Low income Medications Administered Discontinued Medications Generic Name Dose Route Start Last Admin Trade Name Freq PRN Reason Stop Dose Admin Ketorolac Tromethamine 60 mg 12/15/23 22:30 12/15/23 22:54 Ketorolac Tromethamine 60 Mg/2 Ml Vial IM 12/15/23 22:31 60 mg ONCE ONE Administration Discharge Plan Discharge Clinical Impression: Colitis, Constipation Patient Disposition: Home, Self-Care Instructions: Constipation (ED), Colitis (ED), Enteritis (ED) Additional Instructions: clear liquid diet for 3 days Prescriptions: New naproxen [Naprosyn] 500 mg tablet 500 mg PO BID Qty: 20 0RF levofloxacin 500 mg tablet 500 mg PO Q24H 10 Days Qty: 10 0RF metronidazole 500 mg tablet 500 mg PO TID Qty: 30 0RF No Action isosorbide mononitrate 30 mg Tablet Extended Release 24 Hr 30 mg PO DAILY omeprazole 20 mg Capsule,Delayed Release(Dr/Ec) 20 mg PO BID@0630,1630 topiramate 100 mg Tablet 100 mg PO BID nitroglycerin [Nitrostat] 0.4 mg Tablet, Sublingual 0.4 mg SUBLINGUAL Q5M PRN (Reason: Chest Pain) Rx Instructions: do not exceed 3 doses per episode ergocalciferol (vitamin D2) 1,250 mcg (50,000 unit) Capsule 1,250 mcg PO RIVER insulin glargine [Lantus Solostar U-100 Insulin] 100 unit/mL (3 mL) Insulin Pen 30 unit SUBCUT DAILY PRN (Reason: Hyperglycemia) amitriptyline 50 mg tablet 50 mg PO BEDTIME aspirin 81 mg tablet,delayed release (DR/EC) 81 mg PO DAILY atorvastatin 80 mg tablet 80 mg PO BEDTIME losartan 100 mg tablet 100 mg PO BEDTIME metoprolol succinate 100 mg tablet extended release 24 hr 100 mg PO BID gabapentin 100 mg capsule 100 mg PO BID polyethylene glycol 3350 17 gram/dose powder 17 g PO DAILY acetaminophen 325 mg Tablet 650 mg PO Q6H PRN (Reason: Pain) lactulose 10 gram/15 mL solution 15 ml PO DAILY PRN (Reason: Constipation) amlodipine 10 mg tablet 10 mg PO DAILY Referrals: Rafiq Zhong MD [Primary Care Provider] - 3 days Print Language: Armenian
[2023-12-15 20:52] VITALS: BP 126/55; PULSE 77; RESP 18; TEMP 36.9; O2SAT 98; BMI 28.1
[2023-12-15 21:10] LABS: MANUAL DIFF FLAG NO
[2023-12-15 21:13] LABS: Basophils Percent Auto 0.2 % (0-2); Eosinophils Absolute Auto 0.1 X10*3/uL (0.0-0.4); Eosinophils Percent Auto 0.4 % (0-4); Hematocrit 28.2 % (37.0-47.0); Hemoglobin 9.8 g/dl (12.0-16.0); Imm Gran Abs Auto 0.03 X10*3/uL (0.00-0.03); Imm Gran Pct Auto 0.2 % (0.0-0.4); Lymphocytes Absolute Auto 1.1 X10*3/uL (1.2-4.9); Lymphocytes Percent Auto 7.8 % (20-40); Mean Corpuscular HGB Conc 34.8 g/dl (31.0-35.0); Mean Corpuscular Hemoglobin 32.7 pg (27.0-33.0); Mean Platelet Volume 10.3 fL (9.4-12.3); Monocytes Absolute Auto 0.7 X10*3/uL (0.1-1.2); Monocytes Percent Auto 4.8 % (2-11); Neutrophils Absolute Auto 11.8 x10*3/uL (2.0-8.3); Neutrophils Percent Auto 86.6 % (45-73); Platelet Count 234 X10*3/uL (160-400); Red Cell Distribution Width 13.3 % (11.0-16.0); White Blood Count 13.7 X10*3/uL (4.8-10.8)
[2023-12-15 21:28] LABS: Alanine Aminotransferase 8 U/L (0-31); Alkaline Phosphatase 68 U/L (39-117); Anion Gap 13 (12-20); Aspartate Amino Transferase 16 U/L (5-31); Bilirubin Direct 0.2 mg/dL (0.0-0.5); Bilirubin Total 0.4 mg/dL (0.0-1.0); Blood Urea Nitrogen 18 mg/dL (9-16); Calcium 10.2 mg/dL (8.4-10.2); Carbon Dioxide 20 mmol/L (22-29); Chloride 108 mmol/L (96-108); Creatinine Clr Calc Pharmacy 71.1; Estimated Glomerular Filt Rate > 60; Glucose Random 154 mg/dL (60-115); Lipase 8 U/L (8-78); Magnesium 1.5 mg/dL (1.6-2.6); Potassium 3.7 mmol/L (3.3-5.1); Sodium 137 mmol/L (135-145); Total Protein 7.3 g/dL (6.5-8.0)
[2023-12-15 22:13] VITALS: BP 146/63; PULSE 73; RESP 20; TEMP 36.5; O2SAT 98
[2023-12-15] MEDS: Ketorolac Tromethamine 60 MG/2 ML VIAL IM (22:54)
[2023-12-16] VITALS: BP 126/52; PULSE 76; RESP 19; TEMP 36.7; O2SAT 98
[2023-12-16] MEDS: metroNIDAZOLE 500 MG TABLET PO (00:23)
[2023-12-16] MEDS: levoFLOXacin 500 MG TABLET PO (00:23)
[2023-12-16 02:00] VITALS: BP 112/52; PULSE 62; RESP 16; TEMP 36.6; O2SAT 95
[2023-12-16 03:57] VITALS: BP 110/55; PULSE 65; RESP 16; TEMP 36.8; O2SAT 97
--- NOTE | 2023-12-16 04:05 | PC.NURSE ---
Patient called her son without answer but stated, i can get into my house, my son is there he will answer the door. [facility] loaded patient onto stretcher and did take patient to her home.Patient alert and oriented x4
[2023-12-16 04:09] VITALS: BP 110/55; PULSE 65; RESP 16; TEMP 36.8; O2SAT 97
== END 2023-12-16 04:11 | disposition home or self-care (01) ==
PROVIDERS: Physician Assistant; Emergency Provider Emergency Medicine; PCP Internal Medicine
DX: K52.9 Noninfective gastroenteritis and colitis, unspecified (principal); K59.00 Constipation, unspecified; R10.30 Lower abdominal pain, unspecified; E11.9 Type 2 diabetes mellitus without complications; I10 Essential (primary) hypertension; Z86.73 Personal history of transient ischemic attack (TIA), and cerebral infarction without residual deficits; Z79.4 Long term (current) use of insulin; Z79.82 Long term (current) use of aspirin; Z79.899 Other long term (current) drug therapy
CPT/HCPCS: 36415; 51701; 74176; 80048; 80076; 83690; 83735; 85025; 96372; 99284; J1885

== ENCOUNTER 2024-02-21 11:21 | Inpatient (IN) | payer MEDICAID, SELFPAY ==
--- NOTE | ~2024-02-21 | XR_ITS ---
EXAMINATION: XR CHEST CLINICAL INFORMATION: cough, sob COMPARISON: 09/16/2022 TECHNIQUE: 2 views of the chest were obtained. FINDINGS: Multiple pulmonary nodules, some of which appear larger and more conspicuous, particularly in the left midlung. No focal consolidation, pulmonary edema, or pleural effusion. Stable cardiomediastinal silhouette. XR/XR chest 2V IMPRESSION: 1. No acute cardiopulmonary findings. 2. Multiple pulmonary nodules, some of which appear larger and more conspicuous, particularly in the left midlung. Consider chest CT. Electronically signed by: Juan Francisco Shah MD 02/21/2024 02:22 PM [facility]
--- NOTE | ~2024-02-21 | CT_ITS ---
EXAMINATION: CT CHEST WITH CONTRAST CLINICAL INFORMATION: Multiple pulmonary nodules, weight loss COMPARISON: Chest x-ray on 07/11 TECHNIQUE: Multidetector volumetric CT imaging of the chest was obtained after the administration of 50 mL of Omnipaque 350 intravenous contrast without immediate adverse reactions. Axial MIP volume rendering provided. Sagittal and coronal reformatted images were obtained. This CT examination was performed using dose optimization techniques as appropriate, variously including the following: *Automated exposure control *Adjustment of mA and/or kV according to patient size (this includes techniques or standardized protocols for targeted exams where dose is matched to indication/reason for exam; i.e. extremities or head) *Use of iterative reconstruction technique DLP: 328 mGy-cm FINDINGS: LUNGS: Mild emphysema. There are multiple scattered bilateral nodules/groundglass attenuation and tree-in-bud opacities. The largest area of nodules/consolidation is in the left lower lobe and measures 1.0 cm. MEDIASTINUM: There are calcifications of the thoracic aorta and coronary arteries. The mediastinum is otherwise unremarkable. PLEURA: There is no pleural effusion. No pleural mass or thickening. AXILLA: No lymphadenopathy. UPPER ABDOMEN: Unremarkable OSSEOUS STRUCTURES: Kyphosis of the thoracic spine. CT/CT chest w IV con IMPRESSION: Multiple scattered bilateral nodules/groundglass attenuation and tree-in-bud opacities. The largest area of nodules/consolidation is in the left lower lobe and measures 1.0 cm. Findings may be infectious or inflammatory in etiology. Short interval follow-up is recommended to ensure resolution. Fleischner guidelines were followed. Electronically signed by: Radha Ram MD 02/23/2024 08:14 PM YANI
[2024-02-21 11:37] VITALS: BP 134/70; PULSE 77; O2SAT 99
[2024-02-21 11:38] VITALS: BP 127/66; PULSE 72; RESP 20; TEMP 36.7; O2SAT 100; BMI 26.6
--- NOTE | 2024-02-21 11:40 | ED_ITS ---
HPI - Weakness General Chief complaint: Weakness Stated complaint: +COVID T-1,WEAK X4D,PROD COUGH PER EMS Time Seen by Provider: 02/21/24 17:07 Source: patient Mode of arrival: EMS Limitations: no limitations History of Present Illness ED Provider: Dr. Miguelangel Pedersen HPI Narrative: 63-year-old female with a history of diabetes mellitus, coronary artery disease, gastritis, ischemic bowel disease, right [id number], who presents emergency department for evaluation of 5 days of cough, nausea, vomiting, diarrhea, abdominal pain, headache, weakness. Patient tested positive for COVID-19 yesterday. She states in the last 24 hours she has had no appetite in his not been able to eat or drink and she believes that she has lost significant amount of weight. Patient states that this morning she was not able to get out of bed and get into her wheelchair secondary to her weakness therefore she spoke to her daughter and then called an ambulance to come to the emergency department for evaluation. Patient states that she has a cough which is nonproductive. She denied chest pain or shortness of breath. She states she had multiple episodes of diarrhea but this resolved today. She states she has had nausea but no vomiting. Related Data Home Medications ?Medication ?Instructions ?Recorded ?Confirmed isosorbide mononitrate 30 mg 30 mg PO DAILY 05/12/20 02/21/24 tablet,extended release 24 hr omeprazole 20 mg capsule,delayed 20 mg PO BID@0630,1630 05/12/20 02/21/24 release topiramate 100 mg tablet 100 mg PO BID 05/12/20 02/21/24 ergocalciferol (vitamin D2) 1,250 1,250 mcg PO RIVER 07/15/21 02/21/24 mcg (50,000 unit) capsule insulin glargine 100 unit/mL (3 10 - 30 unit subcut DAILY PRN 07/22/21 02/21/24 mL) subcutaneous pen (Lantus Hyperglycemia Solostar U-100 Insulin) amitriptyline 50 mg tablet 50 mg PO BEDTIME 04/27/23 02/21/24 aspirin 81 mg tablet,delayed 81 mg PO DAILY 04/27/23 02/21/24 release atorvastatin 80 mg tablet 80 mg PO BEDTIME 04/27/23 02/21/24 gabapentin 100 mg capsule 100 mg PO BID 04/27/23 02/21/24 losartan 100 mg tablet 100 mg PO BEDTIME 04/27/23 02/21/24 metoprolol succinate 100 mg 100 mg PO BID 04/27/23 02/21/24 tablet,extended release 24 hr amlodipine 10 mg tablet 10 mg PO DAILY 07/01/23 02/21/24 acetaminophen 325 mg tablet 650 mg PO Q6H PRN Pain 11/29/23 02/21/24 polyethylene glycol 3350 17 17 g PO DAILY PRN Constipation 11/29/23 02/21/24 gram/dose oral powder Allergies Allergy/AdvReac Type Severity Reaction Status Date / Time Penicillins [PENICILLINS] Allergy Mild HIVES Verified 12/15/23 20:53 clarithromycin [From Biaxin] Allergy Unknown HIVES Verified 12/15/23 20:53 penicillin V Allergy Unknown rash, Verified 12/15/23 20:53 throat tight erythromycin base Allergy Rash Verified 02/21/24 11:44 bioxin Allergy Unknown Unknown Uncoded 12/15/23 20:53 penicillin Allergy Unknown Unknown Uncoded 12/15/23 20:53 Review of Systems 2 Review of Systems: Yes all other systems are reviewed and are negative [facility] Past Medical History [facility] Narrative: Social history: She lives alone. She denies tobacco and alcohol use. Medical History Cerebrovascular accident Diabetes type 2 with atherosclerosis of arteries of extremities Diabetic foot ulcer Diabetic neuropathy associated with diabetes mellitus due to underlying condition Hypotonic neurogenic bladder Delirium due to another medical condition Hyperglycemia Encephalopathy acute CVA (cerebral vascular accident) History of peptic ulcer disease Cholelithiasis Myocardial infarction Wheelchair bound Below knee amputation CAD (coronary artery disease) Chronic pain syndrome Depression Anxiety HTN (hypertension) Liver lesion History of gastrostomy tube placement Gastroparesis IDDM (insulin dependent diabetes mellitus) Surgical History History of back surgery Hx of BKA Family History Family History Father Coronary arteriosclerosis Social History Social History Household Members: None Housing: Apartment Are you a primary healthcare architect to a significant other at home: No Do you presently have visiting nurse or other home services: Yes (daughter is [employer]SEMBL[employer]) Unable to assess alcohol history related to: Unknown Alcohol intake: former Comment: 1:1 sitter Patient Tobacco Use Status: Never used Tobacco Smoked in Last 30 Days: No Second Hand Smoke Exposure: No Use of substances other than those prescribed or required for medical reasons: Unknown Advance Directives: Yes Advance Directives on File: Yes Advance Directives Date on File: 05/12/20 Do you have a plan to hurt others: No Plan service: No Current occupational status: unemployed and disabled Physical Exam 2 Vital Signs: Vital Signs: Last Vital Signs Temp 98.1 F 02/22/24 01:29 Pulse 74 02/22/24 01:29 Resp 18 02/22/24 01:29 BP 154/60 H 02/22/24 01:29 Pulse Ox 99 02/22/24 01:29 O2 Del Method Room Air 02/22/24 01:29 BMI result Body Mass Index 26.6 Vital signs were normal. Exam: General: Awake, alert in no distress, appears very weak Head: Normocephalic, atraumatic EENT: Mouth revealed dry mucous membranes, pupils were equal round reactive to light sclera were normal. Neck: Supple, no adenopathy Lung: breath sounds symmetric, no wheezing, rales or rhonchi Chest: symmetric movement, nontender Heart: regular rate and rhythm, normal S1, S2 no murmurs or rubs Abdomen: soft, mild diffuse tenderness, nondistended, normal bowel sounds Back: no vertebral tenderness, no CVAT Extremities: Right [id number] amputation, left lower extremity with trace pitting edema-chronic Neuro: Awake, alert, oriented, normal speech, cranial nerves intact, moves all extremities symmetrically Psych: Pleasant, cooperative Course Course Course Narrative: This is a Rapid Medical Examination (RME) performed by Suyapa Rosales PA-C in triage. Full HPI, ROS, assessment and treatment plan per primary provider in the Main ED. 63 yo female with history of COPD, DM2, CAD, hx gastroparesis s/p gastric pacemaker, HTN, mood disorder, PVD s/p right BKA, hx CVA who presents to the ER from home via EMS for evaluation of weakness x4-5 days along with cough, dry heaving, dizziness, upset stomach. decreased PO intake. felt like she was going to pass out this morning so she called 911. lives home alone. on exam, chronically ill appearing, weak. faint end exp wheeze bilaterally, speaking in complete sentences. Plan: labs, cxr, ekg Medications Administered Generic Name Dose Route Start Last Admin Trade Name Freq PRN Reason Stop Dose Admin Acetaminophen 650 mg 02/21/24 21:13 02/21/24 22:35 Acetaminophen 325 Mg Tablet PO 650 mg Q6H PRN Administration Pain, Mild (Pain Scale 1-3), fever or headache Enoxaparin Sodium 40 mg 02/21/24 21:15 02/21/24 22:32 Enoxaparin Sodium 40 Mg/0.4 Ml Syringe SUBCUT 40 mg Q24H SANTI Administration Dextrose/Sodium Chloride 1,000 mls @ 125 mls/hr 02/21/24 21:15 02/21/24 22:31 D5ns IVCONT 125 mls/hr .Q8H SANTI Administration Sodium Chloride 3 ml 02/22/24 00:00 02/22/24 01:55 0.9 % Sodium Chloride Flush 3 Ml Syringe IVFLUSH 3 ml QSHIFT SANTI Administration Discontinued Medications Generic Name Dose Route Start Last Admin Trade Name Freq PRN Reason Stop Dose Admin Sodium Chloride 1,000 mls @ 999 mls/hr 02/21/24 17:34 02/21/24 19:43 Ns IV 02/21/24 18:34 Infused .Q1H1M STA Infusion Ketorolac Tromethamine 15 mg 02/21/24 17:34 02/21/24 18:36 Ketorolac Tromethamine 15 Mg/Ml Vial IVPUSH 02/21/24 17:35 15 mg ONCE STA Administration Oxycodone HCl 5 mg 02/21/24 17:34 02/21/24 18:58 Oxycodone Hcl Immed Release 5 Mg Tablet PO 02/21/24 17:35 5 mg ONCE STA Administration Medical Decision Making Medical Decision Making MDM Narrative: 63-year-old female with a history of diabetes mellitus, coronary artery disease, gastritis, ischemic bowel disease, right [id number], who presents emergency department for evaluation of 5 days of cough, nausea, vomiting, diarrhea, abdominal pain, headache, weakness. Patient tested positive for COVID-19 yesterday. She states in the last 24 hours she has had no appetite and has not been able to eat or drink, she believes that she was lost significant amount of weight. Patient states that this morning she was not able to get out of bed and get into her wheelchair secondary to her weakness therefore she came to emergency department by ambulance for evaluation. Vital signs were normal. Physical examination he was unremarkable. Differential diagnosis: ?Includes but is not limited to COVID-19 infection, COVID-19 pneumonia, influenza, RSV, electrolyte abnormalities, anemia, urinary tract infect Following evaluation was ordered: CBC, BNP, liver panel, magnesium, troponin, urinalysis, COVID-19, influenza, RSV, chest x-ray two view, 12 EKG Patient was initially treated with the following: Normal saline x1 L IV, Toradol 15 mg IV, oxycodone 5 mg orally Course: 18:47 My interpretation patient's laboratory evaluation as follows: WBC was normal 8600. Chronic normocytic anemia with an H&H of 9.8 and 28.9. BUN and creatinine were normal. LFTs were normal. COVID-19 was positive. BNP was elevated 156. Chest x-ray on my interpretation revealed increased interstitial markings patient also has a right Port-A-Cath. This is most likely consistent with early COVID pneumonia and nap congestive heart failure. Given the patient's severe weakness, poor appetite and fluid intake over the last 1-2 days, fact that she lives alone in his too weak to use her wheelchair, the patient will need to be admitted for treatment of early COVID pneumonia and weakness. I did discuss the patient's presentation over tiger text with the covering hospitalist, Dr. Blankenship and the patient will be admitted for further management. Admission/Observation Consideration of admission/observation: Escalation of care including admission/observation considered (Yes) Consult Healthcare Provider Management of the patient was discussed with: Hospitalist Lab Data [facility] Lab Attestation statement: I reviewed the patient's lab results. 02/21/24 12:42 02/21/24 12:42 Labs: Lab Results 02/21/24 02/21/24 Range/Units 12:42 14:43 WBC 8.6 (4.8-10.8) X10*3/uL RBC 3.02 L (4.20-5.50) X10*6/uL Hgb 9.8 L (12.0-16.0) g/dl Hct 28.9 L (37.0-47.0) % MCV 95.7 (80.0-98.0) fL MCH 32.5 (27.0-33.0) pg MCHC 33.9 (31.0-35.0) g/dl RDW 12.8 (11.0-16.0) % Plt Count 256 (160-400) X10*3/uL MPV 10.1 (9.4-12.3) fL Immature Gran % (Auto) 0.2 (0.0-0.4) % Neut % (Auto) 66.5 (45-73) % Lymph % (Auto) 24.9 (20-40) % [place] % (Auto) 6.7 (2-11) % Eos % (Auto) 1.5 (0-4) % Baso % (Auto) 0.2 (0-2) % Lymph # (Auto) 2.2 (1.2-4.9) X10*3/uL [place] # (Auto) 0.6 (0.1-1.2) X10*3/uL Eos # (Auto) 0.1 (0.0-0.4) X10*3/uL Baso # (Auto) 0.0 (0.0-0.2) X10*3/uL Abs Immat Gran (auto) 0.02 (0.00-0.03) X10*3/uL Absolute Neuts (auto) 5.7 (2.0-8.3) x10*3/uL Absolute Nucleated RBC 0.000 (0.0-0.012) X10*3/uL Nucleated RBC % (auto) 0.0 (0.0-0.2) /100WBC Sodium 143 (135-145) mmol/L Potassium 3.8 (3.3-5.1) mmol/L Chloride 112 H (96-108) mmol/L Carbon Dioxide 23 (22-29) mmol/L Anion Gap 12 (12-20) BUN 13 (9-16) mg/dL Creatinine 0.69 (0.5-1.4) mg/dL Estim Creat Clear Calc 80.2 Estimated GFR > 60 POC Glucose 96 (60-115) mg/dL Random Glucose 109 (60-115) mg/dL Calcium 10.5 H (8.4-10.2) mg/dL Magnesium 1.7 (1.6-2.6) mg/dL Total Bilirubin 0.3 (0.0-1.0) mg/dL Direct Bilirubin 0.2 (0.0-0.5) mg/dL AST 26 (5-31) U/L ALT 10 (0-31) U/L Alkaline Phosphatase 77 (39-117) U/L Troponin I High Sens 6.9 (<3.5-17.0) ng/L B-Natriuretic Peptide 156 H (<100) pg/mL Total Protein 7.9 (6.5-8.0) g/dL Albumin 4.1 (3.5-5.0) g/dL Influenza Type A (PCR) NEGATIVE (Negative) Influenza Type B (PCR) NEGATIVE (Negative) RSV RNA Qual (PCR) NEGATIVE (Negative) SARS-CoV-2 RNA (RT-PCR) POSITIVE A (Negative) Independent Interpretation I performed an independent interpretation of an: EKG and Plain X-Ray Interpretation: My independent interpretation patient's 12 EKG done at 12:11 hours is as follows: Normal sinus rhythm with a rate of 71, normal KS interval, QRS duration acute DC interval, patient has artifact in the baseline but no significant ST segment elevation or depression, no significant T-wave abnormalities, no PACs, no PVCs My independent interpretation patient's chest x-ray is as follows: Increased interstitial markings Radiology Impression Discussion of test interpretation with radiology: I have reviewed the radiologist's reading. Radiologist Impression: XR chest 2V IMPRESSION: 1. No acute cardiopulmonary findings. 2. Multiple pulmonary nodules, some of which appear larger and more conspicuous, particularly in the left midlung. Consider chest CT. Electronically signed by: Juan Francisco Shah MD 02/21/2024 02:22 PM Dictated By: Juan Francisco Shah MD Chronic Conditions Patient?s care impacted by: Diabetes and Other (Coronary artery disease) Discharge Plan Discharge Clinical Impression: Pneumonia due to 2019 novel coronavirus, Weakness, Decreased oral intake
--- NOTE | 2024-02-21 11:42 | ECG_ITS ---
Test Reason : SOB Blood Pressure : / mmHG Vent. Rate : 071 BPM Atrial Rate : 071 BPM P-R Int : 138 ms QRS Dur : 088 ms QT Int : 412 ms P-R-T Axes : -15 -32 -40 degrees QTc Int : 447 ms Poor data quality Normal sinus rhythm Nonspecific ST changes Abnormal ECG When compared with ECG of 29-NOV-2023 01:02, Poor data quality in current ECG precludes serial comparison Referred By: Mahsa Rosales Electronically Signed By:Chet Herrera
[2024-02-21 12:48] LABS: MANUAL DIFF FLAG NO
[2024-02-21 12:50] LABS: Basophils Percent Auto 0.2 % (0-2); Eosinophils Absolute Auto 0.1 X10*3/uL (0.0-0.4); Eosinophils Percent Auto 1.5 % (0-4); Hematocrit 28.9 % (37.0-47.0); Hemoglobin 9.8 g/dl (12.0-16.0); Imm Gran Abs Auto 0.02 X10*3/uL (0.00-0.03); Imm Gran Pct Auto 0.2 % (0.0-0.4); Lymphocytes Absolute Auto 2.2 X10*3/uL (1.2-4.9); Lymphocytes Percent Auto 24.9 % (20-40); Mean Corpuscular HGB Conc 33.9 g/dl (31.0-35.0); Mean Corpuscular Hemoglobin 32.5 pg (27.0-33.0); Mean Corpuscular Volume 95.7 fL (80.0-98.0); Mean Platelet Volume 10.1 fL (9.4-12.3); Monocytes Absolute Auto 0.6 X10*3/uL (0.1-1.2); Monocytes Percent Auto 6.7 % (2-11); Neutrophils Absolute Auto 5.7 x10*3/uL (2.0-8.3); Neutrophils Percent Auto 66.5 % (45-73); Platelet Count 256 X10*3/uL (160-400); Red Blood Count 3.02 X10*6/uL (4.20-5.50); Red Cell Distribution Width 12.8 % (11.0-16.0); White Blood Count 8.6 X10*3/uL (4.8-10.8)
[2024-02-21 13:03] LABS: Alanine Aminotransferase 10 U/L (0-31); Albumin Level 4.1 g/dL (3.5-5.0); Alkaline Phosphatase 77 U/L (39-117); Anion Gap 12 (12-20); Aspartate Amino Transferase 26 U/L (5-31); Bilirubin Direct 0.2 mg/dL (0.0-0.5); Bilirubin Total 0.3 mg/dL (0.0-1.0); Blood Urea Nitrogen 13 mg/dL (9-16); Calcium 10.5 mg/dL (8.4-10.2); Carbon Dioxide 23 mmol/L (22-29); Chloride 112 mmol/L (96-108); Creatinine Clr Calc Pharmacy 80.2; Estimated Glomerular Filt Rate > 60; Glucose Random 109 mg/dL (60-115); Magnesium 1.7 mg/dL (1.6-2.6); Potassium 3.8 mmol/L (3.3-5.1); Sodium 143 mmol/L (135-145); Total Protein 7.9 g/dL (6.5-8.0)
[2024-02-21 13:09] LABS: B Type Natriuretic Peptide 156 pg/mL (<100)
[2024-02-21 13:10] LABS: Troponin-I High Sensitivity 6.9 ng/L (<3.5-17.0)
[2024-02-21 13:26] LABS: Influenza A PCR NEGATIVE (Negative); Influenza B PCR NEGATIVE (Negative); Resp Syncy Virus RNA Qual PCR NEGATIVE (Negative); SARS COV2 PCR INHOUSE POSITIVE (Negative)
[2024-02-21 14:48] LABS: Glucose, Whole Blood 96 mg/dL (60-115)
[2024-02-21 17:15] VITALS: BP 121/62; PULSE 70; RESP 16; TEMP 36.8; O2SAT 100
[2024-02-21] MEDS: Ketorolac Tromethamine 15 MG/ML VIAL IVPUSH (18:36)
[2024-02-21] MEDS: 0.9 % Sodium Chloride 1,000 ML 999 ML IV (18:36)
[2024-02-21] MEDS: oxyCODONE HCl Immed Release 5 MG TABLET PO (18:58)
--- NOTE | 2024-02-21 20:58 | PHA.MEDREC ---
Addendum entered by Willie Patel RPh 02/21/24 21:09: Med rec reviewed Original Note: Pharmacy Consult ? Medication Reconciliation Pharmacy has completed the medication reconciliation. Patient was a poor historian. She didn't know any of the medications she takes or didn't know where she fills her medication. Patient said to call her daughter Codie. Called and spoke to patient daughter Codie to confirm med list. Daughter was able to confirm patients medications. Daughter state peralta no longer takes Lactulose , Metronidazole 500 mg, Naproxen 500 mg, and Nitrostat. Daughter states fabian is on lantus Solostar 10-30 units daily per sugar readings, Vitamin D2 1,250 mcg is every Monday , last dose 02/18/24.
--- NOTE | 2024-02-21 21:20 | P.HPHOSP_ITS ---
History of Present Illness Date of Service: 02/21/24 Attending physician on admission: Harinder Kntot Chief Complaint: Generalized weakness for the last 3-4 days. Patient is a 63-year-old white female with a history of type 2 diabetes mellitus, coronary artery disease, gastritis, ischemic bowel disease, status post right BKA and currently wheelchair-bound who presents to emergency room via EMS from home with multiple medical problems. She states that she had been feeling unwell for the last 4-5 days describing increasing weakness, poor appetite with decreased oral intake, generalized abdominal pain, nausea, vomiting, diarrhea, headaches and dizziness. She also describes a subjective fevers but no chills. She tested positive for COVID-19 on a home test and this was confirmed today in the ED. she states that her son came to see her today and found her still in bed and feeling weak and so called EMS who brought her to the emergency room where initial workup done was unrevealing except for a positive COVID-19 PCR test and mild hypercalcemia (likely due to dehydration). Given her persistent and worsening weakness and inability to care for self in setting of current COVID-19 infection, a decision was made to admit her for further care and consideration for short term rehab placement. Review of Systems 2 Review of Systems: Twelve system review was completed and is as noted above otherwise the rest of the system review is negative. [facility] Medical History Cerebrovascular accident Diabetes type 2 with atherosclerosis of arteries of extremities Diabetic foot ulcer Diabetic neuropathy associated with diabetes mellitus due to underlying condition Hypotonic neurogenic bladder Delirium due to another medical condition Hyperglycemia Encephalopathy acute CVA (cerebral vascular accident) History of peptic ulcer disease Cholelithiasis Myocardial infarction Wheelchair bound Below knee amputation CAD (coronary artery disease) Chronic pain syndrome Depression Anxiety HTN (hypertension) Liver lesion History of gastrostomy tube placement Gastroparesis IDDM (insulin dependent diabetes mellitus) Family History Father Coronary arteriosclerosis Surgical History History of back surgery Hx of BKA Social History Household Members: None Housing: Apartment Are you a primary pet caretaker to a significant other at home: No Do you presently have visiting nurse or other home services: Yes (daughter is [employer]) Unable to assess alcohol history related to: Unknown Alcohol intake: former Comment: 1:1 sitter Patient Tobacco Use Status: Never used Tobacco Second Hand Smoke Exposure: No Advance Directives: Yes Advance Directives on File: Yes Advance Directives Date on File: 05/12/20 Do you have a plan to hurt others: No Plan service: No Current occupational status: unemployed and disabled Meds Allergies Allergy/AdvReac Type Severity Reaction Status Date / Time Penicillins [PENICILLINS] Allergy Mild HIVES Verified 12/15/23 20:53 clarithromycin [From Biaxin] Allergy Unknown HIVES Verified 12/15/23 20:53 penicillin V Allergy Unknown rash, Verified 12/15/23 20:53 throat tight erythromycin base Allergy Rash Verified 02/21/24 11:44 bioxin Allergy Unknown Unknown Uncoded 12/15/23 20:53 penicillin Allergy Unknown Unknown Uncoded 12/15/23 20:53 Home Medications ?Medication ?Instructions ?Recorded ?Confirmed ?Last Taken ?Type isosorbide mononitrate 30 mg 30 mg PO DAILY 05/12/20 02/21/24 02/20/24 History tablet,extended release 24 hr omeprazole 20 mg capsule,delayed 20 mg PO BID@0630,1630 05/12/20 02/21/24 02/20/24 History release topiramate 100 mg tablet 100 mg PO BID 05/12/20 02/21/24 02/20/24 History ergocalciferol (vitamin D2) 1,250 1,250 mcg PO RIVER 07/15/21 02/21/24 02/18/24 History mcg (50,000 unit) capsule insulin glargine 100 unit/mL (3 10 - 30 unit subcut DAILY PRN 07/22/21 02/21/24 02/20/24 History mL) subcutaneous pen (Lantus Hyperglycemia Solostar U-100 Insulin) amitriptyline 50 mg tablet 50 mg PO BEDTIME 04/27/23 02/21/24 02/20/24 History aspirin 81 mg tablet,delayed 81 mg PO DAILY 04/27/23 02/21/24 02/20/24 History release atorvastatin 80 mg tablet 80 mg PO BEDTIME 02/11/1002/21/24 02/20/24 History gabapentin 100 mg capsule 100 mg PO BID 04/27/23 02/21/24 02/20/24 History losartan 100 mg tablet 100 mg PO BEDTIME 04/27/23 02/21/24 02/20/24 History metoprolol succinate 100 mg 100 mg PO BID 04/27/23 02/21/24 02/20/24 History tablet,extended release 24 hr amlodipine 10 mg tablet 10 mg PO DAILY 07/01/23 02/21/24 02/20/24 History acetaminophen 325 mg tablet 650 mg PO Q6H PRN Pain 11/29/23 02/21/24 Unknown History polyethylene glycol 3350 17 17 g PO DAILY PRN Constipation 11/29/23 02/21/24 11/28/23 History gram/dose oral powder Physical Exam 2 Vital Signs and Narrative: Vital Signs: Last Vital Signs Temp 98.2 F 02/21/24 17:15 Pulse 70 02/21/24 17:15 Resp 16 02/21/24 17:15 BP 121/62 02/21/24 17:15 Pulse Ox 100 02/21/24 17:15 O2 Del Method Room Air 02/21/24 17:15 BMI result Body Mass Index 26.6 General: Well nourished but ill appearing female in bed. Awake and alert. In no obvious respiratory distress. Psychiatric: Pleasant with depressed affect. HEENT: Normocephalic, atraumatic. No pallor or jaundice. Dry oral mucus membranes Neck: Supple. No JVD Lungs: Clear to auscultation bilaterally. No rales, rhonchi or wheezes Heart: RRR. Normal s1/s2. No murmurs, rubs or gallops. No peripheral edema. Abdomen: Scaphoid, Soft, non-tender. Normoactive bowel sounds. No visceromegaly. Genitourinary: Deferred Back/Spine/Pelvis: Deferred Skin: Warm, dry, well perfused. Normal turgor. No mottling. Normal capillary refill (< 2 seconds). Neurologic: Awake and alert. Intact speech & cognition. Gait & balance not tested. CN II-XII grossly normal. Extremities: S/P Right BKA. Otherwise with normal muscle bulk, tone and power. No peripheral edema. Good peripheral pulses. Results Labs 02/21/24 12:42 12/04/24 12:42 Labs: Laboratory Results - last 24 hr 02/21/24 02/21/24 12:42 14:43 MCV 95.7 MCH 32.5 MCHC 33.9 RDW 12.8 Plt Count 256 MPV 10.1 Immature Gran % (Auto) 0.2 Neut % (Auto) 66.5 Lymph % (Auto) 24.9 [place] % (Auto) 6.7 Eos % (Auto) 1.5 Baso % (Auto) 0.2 Lymph # (Auto) 2.2 [place] # (Auto) 0.6 Eos # (Auto) 0.1 Baso # (Auto) 0.0 Abs Immat Gran (auto) 0.02 Absolute Neuts (auto) 5.7 Absolute Nucleated RBC 0.000 Nucleated RBC % (auto) 0.0 Anion Gap 12 Estim Creat Clear Calc 80.2 Estimated GFR > 60 POC Glucose 96 Random Glucose 109 Calcium 10.5 H Magnesium 1.7 Total Bilirubin 0.3 Direct Bilirubin 0.2 AST 26 ALT 10 Alkaline Phosphatase 77 Troponin I High Sens 6.9 B-Natriuretic Peptide 156 H Total Protein 7.9 Albumin 4.1 Influenza Type A (PCR) NEGATIVE Influenza Type B (PCR) NEGATIVE RSV RNA Qual (PCR) NEGATIVE SARS-CoV-2 RNA (RT-PCR) POSITIVE A ECG ECG interpretation date: 02/21/24 ECG interpretation time: 22:16 Prior ECG tracings: available for review Interpretation: Normal sinus rhythm at 70 beats per minute with a nonspecific ST segment changes. Otherwise no acute ischemic changes. Imaging Radiologist's Impressions: Impressions Chest X-Ray 02/21/24 11:42 IMPRESSION: 1. No acute cardiopulmonary findings. 2. Multiple pulmonary nodules, some of which appear larger and more conspicuous, particularly in the left midlung. Consider chest CT. Electronically signed by: Juan Francisco Shah MD 02/21/2024 02:[address] [facility] Assessment and Plan (1) Adult failure to thrive: Status: Acute - she presents comlaining of feeling excessively weak and unable to even get out of bed - she can no longer care for herself in her current state - admit and onslt case management for short term rehab placement (2) Asthenia: Status: Acute - here with c/o gtenralized weakness - likely due to COVID-29 infection complicated by dehydration - consult PT - may need short term rehab placement (3) COVID-19: Status: Acute - with reported multiple symptoms including poor appetite - respiratory status - manage symptomatically (4) T2DM (type 2 diabetes mellitus): Qualifiers: Diabetes mellitus residential insulin use: with residential use Diabetes mellitus complication status: with neurologic complications Diabetes mellitus complication detail: with unspecified neuropathy Qualified Code(s): E11.40 - Type 2 diabetes mellitus with diabetic neuropathy, unspecified; 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 Quality Stroke Does the patient have a stroke diagnosis?: No VTE Prior VTE?: No VTE Risk Level:: Medical - moderate - high VTE Device Contraindication: Treatment Not Indicated VTE Drug Contraindication: N/A - Med Ordered
[2024-02-21] MEDS: Dextrose 5 % and 0.9 % NaCl 1,000 ML 125 ML IVCONT (22:31)
[2024-02-21] MEDS: Enoxaparin Sodium 40 MG/0.4 ML SYRINGE SUBCUT (22:32)
[2024-02-21] MEDS: Acetaminophen 325 MG TABLET 650 MG PO (22:35)
[2024-02-22] VITALS (9 sets, daily range): BP systolic 116–181; BP diastolic 50–77; PULSE 64–88; RESP 16–20; TEMP 36.2–36.9; O2SAT 96–99
[2024-02-22] MEDS: 0.9 % Sodium Chloride Flush 3 ML SYRINGE IVFLUSH (01:55)
[2024-02-22 02:01] LABS: Appearance Urine Clear; Color Urine Yellow; Glucose Urine UA Negative (Negative); Leukocyte Esterase Urine Small (1+) (Negative); Nitrite Urine Negative (Negative); PH 5.5 (5.0-9.0); Specific Gravity - Urine 1.015 (1.005-1.025); UMIC TRIGGER UACC YES; Urine Blood Negative (Negative); Urine Ketones 15 mg/dL (Negative); Urine Protein 100 (2+) mg/dL (Neg-Trace)
[2024-02-22 02:14] LABS: Bacteria Urine None Seen (None Seen); Granular Casts Urine Present; RBC Urine 0-2 /HPF (0-2); Squamous Epithelial Cell Urine 0-2 /HPF (0-2); UACC Culture Trigger YES; WBC Urine 21-50 /HPF (0-5)
[2024-02-22 05:09] LABS: MANUAL DIFF FLAG NO
[2024-02-22 05:10] LABS: Basophils Percent Auto 0.2 % (0-2); Eosinophils Absolute Auto 0.1 X10*3/uL (0.0-0.4); Eosinophils Percent Auto 2.2 % (0-4); Hematocrit 27.1 % (37.0-47.0); Hemoglobin 9.3 g/dl (12.0-16.0); Imm Gran Abs Auto 0.02 X10*3/uL (0.00-0.03); Imm Gran Pct Auto 0.3 % (0.0-0.4); Lymphocytes Absolute Auto 2.9 X10*3/uL (1.2-4.9); Lymphocytes Percent Auto 45.1 % (20-40); Mean Corpuscular HGB Conc 34.3 g/dl (31.0-35.0); Mean Corpuscular Hemoglobin 32.2 pg (27.0-33.0); Mean Corpuscular Volume 93.8 fL (80.0-98.0); Mean Platelet Volume 10.1 fL (9.4-12.3); Monocytes Absolute Auto 0.6 X10*3/uL (0.1-1.2); Monocytes Percent Auto 9.4 % (2-11); Neutrophils Absolute Auto 2.7 x10*3/uL (2.0-8.3); Neutrophils Percent Auto 42.8 % (45-73); Platelet Count 245 X10*3/uL (160-400); Red Blood Count 2.89 X10*6/uL (4.20-5.50); Red Cell Distribution Width 12.6 % (11.0-16.0); White Blood Count 6.4 X10*3/uL (4.8-10.8)
[2024-02-22 05:32] LABS: Alanine Aminotransferase 7 U/L (0-31); Albumin Level 3.2 g/dL (3.5-5.0); Alkaline Phosphatase 72 U/L (39-117); Anion Gap 11 (12-20); Aspartate Amino Transferase 26 U/L (5-31); Bilirubin Total 0.2 mg/dL (0.0-1.0); Blood Urea Nitrogen 12 mg/dL (9-16); Calcium 8.8 mg/dL (8.4-10.2); Carbon Dioxide 18 mmol/L (22-29); Chloride 115 mmol/L (96-108); Creatinine Clr Calc Pharmacy 87.9; Estimated Glomerular Filt Rate > 60; Glucose Random 196 mg/dL (60-115); Magnesium 1.6 mg/dL (1.6-2.6); Potassium 3.3 mmol/L (3.3-5.1); Sodium 141 mmol/L (135-145); Total Protein 6.2 g/dL (6.5-8.0)
[2024-02-22] MEDS: Dextrose 5 % and 0.9 % NaCl 1,000 ML 125 ML IVCONT ×3 (06:32→20:26)
[2024-02-22] MEDS: oxyCODONE HCl Immed Release 5 MG TABLET PO ×2 (06:32→13:59)
[2024-02-22 08:16] LABS: Glucose, Whole Blood 217 mg/dL (60-115)
[2024-02-22] MEDS: Aspirin Enteric Coated 81 MG TABLET.DR PO (08:49)
[2024-02-22] MEDS: Metoprolol Succinate ER 100 MG TAB.ER.24H PO ×2 (08:49→20:25)
[2024-02-22] MEDS: amLODIPine Besylate 10 MG TABLET PO (08:50)
[2024-02-22] MEDS: Topiramate 100 MG TABLET PO ×2 (08:50→20:26)
[2024-02-22] MEDS: Isosorbide Mononitrate 30 MG TAB.ER.24H PO (08:50)
[2024-02-22] MEDS: Docusate Sodium 100 MG CAPSULE PO ×2 (08:50→20:26)
[2024-02-22] MEDS: Gabapentin 100 MG CAPSULE PO ×2 (08:50→20:25)
--- NOTE | 2024-02-22 10:23 | P.PNIM_ITS ---
Subjective Subjective Date of Service: 02/22/24 Interval History: seen and evaluated feels weak and has no energy decrease appetite no other complaits Review of Systems Review of Systems: Yes all other systems are reviewed and are negative Physical Exam 2 Vital Signs: Vital Signs: Last Vital Signs Temp 98.5 F 02/22/24 08:00 Pulse 74 02/22/24 08:49 Resp 18 02/22/24 08:00 BP 181/77 H 02/22/24 08:50 Pulse Ox 98 02/22/24 08:00 O2 Del Method Room Air 02/22/24 08:00 BMI result Body Mass Index 26.6 Const: Other: Constitutional : interactive, not in distress, frail Cardiovascular : no JVP, no lower extremity edema Respiratory : bilateral chest movement, not in resp distress Gastrointestinal: soft, lax, Non tender Skin : Warm, Dry Neurological : Alert & oriented , No focal deficit but overall weakness Objective Data Active Medications Acetaminophen (Acetaminophen 325 Mg Tablet) 650 mg PO Q6H PRN PRN Reason: Pain, Mild (Pain Scale 1-3), fever or headache Last Admin: 02/21/24 22:35 Dose: 650 mg Documented By: SAUNDRA Amitriptyline HCl (Amitriptyline Hcl 50 Mg Tablet) 50 mg PO BEDTIME [facility] Amlodipine Besylate (Amlodipine Besylate 10 Mg Tablet) 10 mg PO DAILY [facility]; Protocol Last Admin: 02/22/24 08:50 Dose: 10 mg Documented By: ZAID Aspirin (Aspirin Enteric Coated 81 Mg Tablet.Dr) 81 mg PO DAILY [facility] Last Admin: 02/22/24 08:49 Dose: 81 mg Documented By: ZAID Atorvastatin Calcium (Atorvastatin Calcium 80 Mg Tablet) 80 mg PO BEDTIME [facility] Calcium Carbonate (Calcium Carbonate 750 Mg Tab.Chew) 750 mg PO Q4H PRN PRN Reason: Heartburn Docusate Sodium (Docusate Sodium 100 Mg Capsule) 100 mg PO BID [facility] Last Admin: 02/22/24 08:50 Dose: 100 mg Documented By: ZAID Enoxaparin Sodium (Enoxaparin Sodium 40 Mg/0.4 Ml Syringe) 40 mg SUBCUT Q24H [facility] Last Admin: 02/21/24 22:32 Dose: 40 mg Documented By: SAUNDRA Gabapentin (Gabapentin 100 Mg Capsule) 100 mg PO BID [facility] Last Admin: 02/22/24 08:50 Dose: 100 mg Documented By: ZAID Dextrose/Sodium Chloride (D5ns) 1,000 mls @ 125 mls/hr IVCONT .Q8H [facility] Last Admin: 02/22/24 06:32 Dose: 125 mls/hr Documented By: NOEL Insulin Glargine (Insulin Glargine,Hum.Rec.Anlog 100 Unit/Ml 10 Ml Vial) 15 unit SUBCUT DAILY PRN PRN Reason: Hyperglycemia Insulin Human Lispro (Insulin Lispro 100 Unit/Ml 3 Ml Vial) 0 unit SUBCUT QIDACHS [facility]; Protocol Isosorbide Mononitrate (Isosorbide Mononitrate 30 Mg Tab.Er.24h) 30 mg PO DAILY [facility]; Protocol Last Admin: 02/22/24 08:50 Dose: 30 mg Documented By: ZAID Losartan Potassium (Losartan Potassium 50 Mg Tablet) 100 mg PO BEDTIME [facility]; Protocol Magnesium Hydroxide (Milk Of Magnesia 30 Ml Oral.Susp) 30 ml PO DAILY PRN PRN Reason: Constipation Melatonin (Melatonin 3 Mg Tablet) 6 mg PO BEDTIME PRN PRN Reason: Insomnia Metoprolol Succinate (Metoprolol Succinate Er 100 Mg Tab.Er.24h) 100 mg PO BID [facility]; Protocol Last Admin: 02/22/24 08:49 Dose: 100 mg Documented By: ZAID Morphine Sulfate (Morphine Sulfate 4 Mg/Ml Cartridge) 2 mg IVPUSH Q6H PRN; Protocol PRN Reason: Pain, Severe (Pain Scale 7-10) Omeprazole (Omeprazole 20 Mg Capsule.Dr) 20 mg PO BID@0630,1630 [facility] Ondansetron HCl (Ondansetron Hcl 4 Mg/2 Ml Vial) 4 mg IVPUSH Q8H PRN PRN Reason: Nausea and Vomiting Oxycodone HCl (Oxycodone Hcl Immed Release 5 Mg Tablet) 5 mg PO Q6H PRN PRN Reason: Pain, Moderate(Pain Scale 4-6) Last Admin: 02/22/24 06:32 Dose: 5 mg Documented By: NOEL Polyethylene Glycol (Polyethylene Glycol 3350 17 Gm Powd.Pack) 17 gm PO DAILY PRN PRN Reason: Constipation Senna (Sennosides 8.6 Mg Tablet) 17.2 mg PO BEDTIME PRN PRN Reason: Constipation Sodium Chloride (0.9 % Sodium Chloride Flush 3 Ml Syringe) 3 ml IVFLUSH QSHIFT [facility] Last Admin: 02/22/24 07:29 Dose: Not Given Documented By: ESTEFANI Non-Admin Reason: IV Running Topiramate (Topiramate 100 Mg Tablet) 100 mg PO BID [facility] Last Admin: 02/22/24 08:50 Dose: 100 mg Documented By: ZAID Labs 02/22/24 04:58 02/22/24 04:58 Labs: Laboratory Results - last 24 hr 02/21/24 02/21/24 02/22/24 12:42 14:43 01:33 MCV 95.7 MCH 32.5 MCHC 33.9 RDW 12.8 Plt Count 256 MPV 10.1 Immature Gran % (Auto) 0.2 Neut % (Auto) 66.5 Lymph % (Auto) 24.9 [place] % (Auto) 6.7 Eos % (Auto) 1.5 Baso % (Auto) 0.2 Lymph # (Auto) 2.2 [place] # (Auto) 0.6 Eos # (Auto) 0.1 Baso # (Auto) 0.0 Abs Immat Gran (auto) 0.02 Absolute Neuts (auto) 5.7 Absolute Nucleated RBC 0.000 Nucleated RBC % (auto) 0.0 Anion Gap 12 Estim Creat Clear Calc 80.2 Estimated GFR > 60 POC Glucose 96 Random Glucose 109 Calcium 10.5 H Magnesium 1.7 Total Bilirubin 0.3 Direct Bilirubin 0.2 AST 26 ALT 10 Alkaline Phosphatase 77 Troponin I High Sens 6.9 B-Natriuretic Peptide 156 H Total Protein 7.9 Albumin 4.1 Urine Color Yellow Urine Appearance Clear Urine pH 5.5 Ur Specific [place] 1.015 Urine Protein 100 (2+) H Urine Glucose (UA) Negative Urine Ketones 15 Urine Blood Negative Urine Nitrite Negative Ur Leukocyte Esterase Small (1+) H Urine RBC 0-2 Urine WBC 21-50 H Ur Squamous Epith Cells 0-2 Urine Bacteria None Seen Hyaline Casts 6-10 Granular Casts Present Influenza Type A (PCR) NEGATIVE Influenza Type B (PCR) NEGATIVE RSV RNA Qual (PCR) NEGATIVE SARS-CoV-2 RNA (RT-PCR) POSITIVE A 02/22/24 02/22/24 04:58 08:12 MCV 93.8 MCH 32.2 MCHC 34.3 RDW 12.6 Plt Count 245 MPV 10.1 Immature Gran % (Auto) 0.3 Neut % (Auto) 42.8 L Lymph % (Auto) 45.1 H [place] % (Auto) 9.4 Eos % (Auto) 2.2 Baso % (Auto) 0.2 Lymph # (Auto) 2.9 [place] # (Auto) 0.6 Eos # (Auto) 0.1 Baso # (Auto) 0.0 Abs Immat Gran (auto) 0.02 Absolute Neuts (auto) 2.7 Absolute Nucleated RBC 0.000 Nucleated RBC % (auto) 0.0 Anion Gap 11 L Estim Creat Clear Calc 87.9 Estimated GFR > 60 POC Glucose 217 H Random Glucose 196 H Calcium 8.8 D Magnesium 1.6 Total Bilirubin 0.2 Direct Bilirubin AST 26 ALT 7 Alkaline Phosphatase 72 Troponin I High Sens B-Natriuretic Peptide Total Protein 6.2 L Albumin 3.2 L Urine Color Urine Appearance Urine pH Ur Specific [place] Urine Protein Urine Glucose (UA) Urine Ketones Urine Blood Urine Nitrite Ur Leukocyte Esterase Urine RBC Urine WBC Ur Squamous Epith Cells Urine Bacteria Hyaline Casts Granular Casts Influenza Type A (PCR) Influenza Type B (PCR) RSV RNA Qual (PCR) SARS-CoV-2 RNA (RT-PCR) Assessment and Plan (1) Decreased oral intake: Status: Acute (2) Weakness: Status: Acute (3) Adult failure to thrive: Status: Acute (4) Diabetes type 2 with atherosclerosis of arteries of extremities: Status: Acute Plan a 63-year-old white female with a history of type 2 diabetes mellitus, coronary artery disease, gastritis, ischemic bowel disease, status post right BKA and currently wheelchair-bound who presents to emergency room via EMS from home with increase weakness, weight loss and FTT. FTT in elderly, Frailty can no longer care for herself Decrease appetite, weight loss PT evaluation Megace for appetite CT scan to R\O any malignancy (CXR reporting multiple nodules) Covid19 reported testing +ve 2 weeks ago symptomatic management DMII POC, humalog, Lantus diabetic diet HTN, continue Amlodipine, Losartan and Metoprolol HLD, Statin Mood disorder, Topiramate, Gabapentin GERD, Omeprazole PAD, ASA , statin DVT PPx Lovenox The patient will need overnight stay for evaluation of FTT in elderly, frailty pending PT eval, CT chest Quality Stroke Does the patient have a stroke diagnosis?: No VTE Prior VTE?: No VTE Risk Level:: Medical - moderate - high VTE Device Contraindication: Treatment Not Indicated VTE Drug Contraindication: N/A - Med Ordered
[2024-02-22 11:01] LABS: Lactate Dehydrogenase 322 U/L (122-220)
[2024-02-22 11:58] LABS: Glucose, Whole Blood 233 mg/dL (60-115)
[2024-02-22] MEDS: Insulin Lispro 100 UNIT/ML 3 ML VIAL SUBCUT ×3 (12:14→21:48)
[2024-02-22] MEDS: Megestrol Acetate 400 MG/10 ML ORAL.SUSP 800 MG PO (12:14)
[2024-02-22 13:07] LABS: Erythrocyte Sedimentation Rate 40 MM/HR (0-20)
[2024-02-22 16:12] LABS: Glucose, Whole Blood 207 mg/dL (60-115)
--- NOTE | 2024-02-22 16:27 | MHC.CM.PN ---
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
[2024-02-22] MEDS: Omeprazole 20 MG CAPSULE.DR PO (16:33)
[2024-02-22] MEDS: Enoxaparin Sodium 40 MG/0.4 ML SYRINGE SUBCUT (20:24)
[2024-02-22] MEDS: Atorvastatin Calcium 80 MG TABLET PO (20:25)
[2024-02-22] MEDS: Amitriptyline HCl 50 MG TABLET PO (20:25)
[2024-02-22] MEDS: Losartan Potassium 50 MG TABLET 100 MG PO (20:26)
[2024-02-22 20:58] LABS: Glucose, Whole Blood 172 mg/dL (60-115)
[2024-02-22] MEDS: iohexoL 350 MG/ML 100 ML INFUS..BTL IV (22:32)
[2024-02-23] VITALS (7 sets, daily range): BP systolic 111–153; BP diastolic 51–68; PULSE 65–72; RESP 18–20; TEMP 36.3–37.2; O2SAT 96–100
[2024-02-23] MEDS: Ibuprofen 800 MG TABLET PO (00:50)
[2024-02-23] MEDS: Acetaminophen 325 MG TABLET 975 MG PO ×3 (00:51→16:17)
[2024-02-23] MEDS: Dextrose 5 % and 0.9 % NaCl 1,000 ML 125 ML IVCONT (05:11)
[2024-02-23] MEDS: Omeprazole 20 MG CAPSULE.DR PO ×2 (05:11→15:47)
[2024-02-23 07:05] LABS: MANUAL DIFF FLAG NO
[2024-02-23 07:22] LABS: Basophils Percent Auto 0.3 % (0-2); Eosinophils Absolute Auto 0.2 X10*3/uL (0.0-0.4); Hematocrit 25.2 % (37.0-47.0); Hemoglobin 8.6 g/dl (12.0-16.0); Imm Gran Abs Auto 0.02 X10*3/uL (0.00-0.03); Imm Gran Pct Auto 0.3 % (0.0-0.4); Lymphocytes Absolute Auto 2.7 X10*3/uL (1.2-4.9); Lymphocytes Percent Auto 35.7 % (20-40); Mean Corpuscular HGB Conc 34.1 g/dl (31.0-35.0); Mean Corpuscular Hemoglobin 32.2 pg (27.0-33.0); Mean Corpuscular Volume 94.4 fL (80.0-98.0); Mean Platelet Volume 10.2 fL (9.4-12.3); Monocytes Absolute Auto 0.7 X10*3/uL (0.1-1.2); Monocytes Percent Auto 9.7 % (2-11); Platelet Count 239 X10*3/uL (160-400); Red Blood Count 2.67 X10*6/uL (4.20-5.50); Red Cell Distribution Width 12.8 % (11.0-16.0); White Blood Count 7.7 X10*3/uL (4.8-10.8)
[2024-02-23 07:26] LABS: Anion Gap 10 (12-20); Blood Urea Nitrogen 7 mg/dL (9-16); Calcium 8.6 mg/dL (8.4-10.2); Carbon Dioxide 18 mmol/L (22-29); Chloride 117 mmol/L (96-108); Creatinine Clr Calc Pharmacy 89.3; Estimated Glomerular Filt Rate > 60; Glucose Random 175 mg/dL (60-115); Potassium 3.1 mmol/L (3.3-5.1); Sodium 142 mmol/L (135-145)
[2024-02-23 07:37] LABS: Glucose, Whole Blood 140 mg/dL (60-115)
[2024-02-23] MEDS: 0.9 % Sodium Chloride Flush 3 ML SYRINGE IVFLUSH ×3 (07:53→21:56)
[2024-02-23] MEDS: Aspirin Enteric Coated 81 MG TABLET.DR PO (07:54)
[2024-02-23] MEDS: Docusate Sodium 100 MG CAPSULE PO ×2 (07:54→21:54)
[2024-02-23] MEDS: Gabapentin 100 MG CAPSULE PO ×2 (07:54→21:54)
[2024-02-23] MEDS: Topiramate 100 MG TABLET PO ×2 (07:54→21:54)
[2024-02-23] MEDS: Metoprolol Succinate ER 100 MG TAB.ER.24H PO ×2 (07:54→21:54)
[2024-02-23] MEDS: Isosorbide Mononitrate 30 MG TAB.ER.24H PO (07:55)
[2024-02-23] MEDS: Megestrol Acetate 400 MG/10 ML ORAL.SUSP PO (07:55)
[2024-02-23] MEDS: amLODIPine Besylate 10 MG TABLET PO (07:55)
[2024-02-23 08:58] LABS: Magnesium 1.5 mg/dL (1.6-2.6)
[2024-02-23] MEDS: Potassium Chloride ER 20 MEQ TAB.ER.PRT 40 MEQ PO (09:52)
[2024-02-23 11:20] LABS: Glucose, Whole Blood 167 mg/dL (60-115)
[2024-02-23] MEDS: Insulin Lispro 100 UNIT/ML 3 ML VIAL SUBCUT ×2 (11:33→21:55)
--- NOTE | 2024-02-23 11:35 | MHC.CM.PN ---
Per rounds, pt. is not yet ready for DC. Cm spoke with pt. to ask her STR choices, if that is what is recommended. Pt. said she does not plan to go to STR, she said she will go home with care from her dtr and son. CM to follow for DC needs.
--- NOTE | 2024-02-23 13:56 | HO.PM.IMPN ---
Subjective Subjective Date of Service: 02/23/24 Interval History: feels very weak not hypoxic, though coughing and short of breath Review of Systems Review of Systems: Yes all other systems are reviewed and are negative Physical Exam Vital Signs: Vital Signs: Last Vital Signs Temp 97.6 F 02/23/24 11:40 Pulse 65 02/23/24 11:40 Resp 18 02/23/24 11:40 BP 111/51 L 02/23/24 11:40 Pulse Ox 96 02/23/24 11:40 O2 Del Method Room Air 02/23/24 11:40 BMI result Body Mass Index 26.6 Gen: in no acute distress, weak/chronically ill-appearing HEENT: sclera anicteric, moist mucus membranes Neck: supple Lungs: clear to auscultation bilaterally Heart: regular rate and rhythm, no murmurs Abd: soft, non-tender, non-distended Ext: no edema, s/p R BKA Skin: warm/well-perfused Neuro: alert and oriented x3, no focal findings but generalized weakness Psych: appropriate affect Objective Data Active Medications Acetaminophen (Acetaminophen 325 Mg Tablet) 975 mg PO Q6H PRN PRN Reason: Pain, Mild (Pain Scale 1-3), fever or headache Last Admin: 02/23/24 07:58 Dose: 975 mg Documented By: NIKITA Amitriptyline HCl (Amitriptyline Hcl 50 Mg Tablet) 50 mg PO BEDTIME [facility] Last Admin: 02/22/24 20:25 Dose: 50 mg Documented By: CHENTE Amlodipine Besylate (Amlodipine Besylate 10 Mg Tablet) 10 mg PO DAILY [facility]; Protocol Last Admin: 02/23/24 07:55 Dose: 10 mg Documented By: NIKITA Aspirin (Aspirin Enteric Coated 81 Mg Tablet.Dr) 81 mg PO DAILY [facility] Last Admin: 02/23/24 07:54 Dose: 81 mg Documented By: NIKITA Atorvastatin Calcium (Atorvastatin Calcium 80 Mg Tablet) 80 mg PO BEDTIME [facility] Last Admin: 02/22/24 20:25 Dose: 80 mg Documented By: CHENTE Calcium Carbonate (Calcium Carbonate 750 Mg Tab.Chew) 750 mg PO Q4H PRN PRN Reason: Heartburn Docusate Sodium (Docusate Sodium 100 Mg Capsule) 100 mg PO BID [facility] Last Admin: 02/23/24 07:54 Dose: 100 mg Documented By: NIKITA Enoxaparin Sodium (Enoxaparin Sodium 40 Mg/0.4 Ml Syringe) 40 mg SUBCUT Q24H [facility] Last Admin: 02/22/24 20:24 Dose: 40 mg Documented By: CHENTE Gabapentin (Gabapentin 100 Mg Capsule) 100 mg PO BID [facility] Last Admin: 02/23/24 07:54 Dose: 100 mg Documented By: NIKITA Insulin Glargine (Insulin Glargine,Hum.Rec.Anlog 100 Unit/Ml 10 Ml Vial) 15 unit SUBCUT DAILY PRN PRN Reason: Hyperglycemia Insulin Human Lispro (Insulin Lispro 100 Unit/Ml 3 Ml Vial) 0 unit SUBCUT QIDACHS [facility]; Protocol Last Admin: 02/23/24 11:33 Dose: 2 unit Documented By: NIKITA Isosorbide Mononitrate (Isosorbide Mononitrate 30 Mg Tab.Er.24h) 30 mg PO DAILY [facility]; Protocol Last Admin: 02/23/24 07:55 Dose: 30 mg Documented By: NIKITA Losartan Potassium (Losartan Potassium 50 Mg Tablet) 100 mg PO BEDTIME [facility]; Protocol Last Admin: 02/22/24 20:26 Dose: 100 mg Documented By: CHENTE Magnesium Hydroxide (Milk Of Magnesia 30 Ml Oral.Susp) 30 ml PO DAILY PRN PRN Reason: Constipation Megestrol Acetate (Megestrol Acetate 400 Mg/10 Ml Oral.Susp) 400 mg PO DAILY [facility] Last Admin: 02/23/24 07:55 Dose: 400 mg Documented By: NIKITA Melatonin (Melatonin 3 Mg Tablet) 6 mg PO BEDTIME PRN PRN Reason: Insomnia Metoprolol Succinate (Metoprolol Succinate Er 100 Mg Tab.Er.24h) 100 mg PO BID [facility]; Protocol Last Admin: 02/23/24 07:54 Dose: 100 mg Documented By: NIKITA Morphine Sulfate (Morphine Sulfate 4 Mg/Ml Cartridge) 2 mg IVPUSH Q6H PRN; Protocol PRN Reason: Pain, Severe (Pain Scale 7-10) Omeprazole (Omeprazole 20 Mg Capsule.) 20 mg PO BID@0630,1630 [facility] Last Admin: 02/23/24 05:11 Dose: 20 mg Documented By: YORDY Ondansetron HCl (Ondansetron Hcl 4 Mg/2 Ml Vial) 4 mg IVPUSH Q8H PRN PRN Reason: Nausea and Vomiting Oxycodone HCl (Oxycodone Hcl Immed Release 5 Mg Tablet) 5 mg PO Q6H PRN PRN Reason: Pain, Moderate(Pain Scale 4-6) Last Admin: 02/22/24 13:59 Dose: 5 mg Documented By: DITOLC Polyethylene Glycol (Polyethylene Glycol 3350 17 Gm Powd.Pack) 17 gm PO DAILY PRN PRN Reason: Constipation Senna (Sennosides 8.6 Mg Tablet) 17.2 mg PO BEDTIME PRN PRN Reason: Constipation Sodium Chloride (0.9 % Sodium Chloride Flush 3 Ml Syringe) [facility] Last Admin: 02/23/24 07:53 Dose: 3 ml Documented By: NIKITA Topiramate (Topiramate 100 Mg Tablet) 100 mg PO BID [facility] Last Admin: 02/23/24 07:54 Dose: 100 mg Documented By: NIKITA Labs 02/23/24 06:46 02/23/24 06:46 Labs: Laboratory Results - last 24 hr 02/22/24 02/22/24 02/23/24 16:06 20:51 06:46 MCV 94.4 MCH 32.2 MCHC 34.1 RDW 12.8 Plt Count 239 MPV 10.2 Immature Gran % (Auto) 0.3 Neut % (Auto) 52.0 Lymph % (Auto) 35.7 [place] % (Auto) 9.7 Eos % (Auto) 2.0 Baso % (Auto) 0.3 Lymph # (Auto) 2.7 [place] # (Auto) 0.7 Eos # (Auto) 0.2 Baso # (Auto) 0.0 Abs Immat Gran (auto) 0.02 Absolute Neuts (auto) 4.0 Absolute Nucleated RBC 0.000 Nucleated RBC % (auto) 0.0 Anion Gap 10 L Estim Creat Clear Calc 89.3 Estimated GFR > 60 POC Glucose 207 H 172 H Random Glucose 175 H Calcium 8.6 Magnesium 1.5 L 02/23/24 02/23/24 07:29 11:12 MCV MCH MCHC RDW Plt Count MPV Immature Gran % (Auto) Neut % (Auto) Lymph % (Auto) [place] % (Auto) Eos % (Auto) Baso % (Auto) Lymph # (Auto) [place] # (Auto) Eos # (Auto) Baso # (Auto) Abs Immat Gran (auto) Absolute Neuts (auto) Absolute Nucleated RBC Nucleated RBC % (auto) Anion Gap Estim Creat Clear Calc Estimated GFR POC Glucose 140 H 167 H Random Glucose Calcium Magnesium Microbiology Microbiology Results: Microbiology 02/22/24 Unknown Urine Culture - Final Urine clean catch - Clean Catch Midstream Assessment and Plan (1) Decreased oral intake: Status: Acute (2) Weakness: Status: Acute (3) Adult failure to thrive: Status: Acute (4) Diabetes type 2 with atherosclerosis of arteries of extremities: Status: Acute Plan d3 for 63yo F with DM2, CAD, gastritis, hx ischemic colitis, hx R BKA presenting with weakness + weight loss, admitted for Covid-19 and FTT FTT - PT evaluation: STR vs home with VNA - Megace pulmonary nodules - CT chest pending hypoK hypoMg - replete, recheck level in AM Covid-19 infection - not hypoxic; supportive care for now DM2 - basal-bolus insulin HTN - amlodipine, losartan, metoprolol succinate, Imdur CAD - statin, ASA, metoprolol succinate, Imdur mood disorder - topiramate neuropathy - gabapentin, amitriptylline GERD - omeprazole VTE prophylaxis - enoxaparin dispo - STR vs home with VNA In my clinical judgment, the patient requires continued inpatient hospitalization for the following reasons: placement, malignancy workup Total time managing care of this patient today: 35 minutes. Quality Stroke Does the patient have a stroke diagnosis?: No VTE Prior VTE?: No VTE Risk Level:: Medical - moderate - high VTE Device Contraindication: Treatment Not Indicated VTE Drug Contraindication: N/A - Med Ordered
[2024-02-23 15:39] LABS: Glucose, Whole Blood 127 mg/dL (60-115)
[2024-02-23] MEDS: Magnesium Oxide 400 MG TABLET 800 MG PO (15:47)
[2024-02-23 21:34] LABS: Glucose, Whole Blood 156 mg/dL (60-115)
[2024-02-23] MEDS: Amitriptyline HCl 50 MG TABLET PO (21:54)
[2024-02-23] MEDS: oxyCODONE HCl Immed Release 5 MG TABLET PO (21:54)
[2024-02-23] MEDS: Melatonin 3 MG TABLET 6 MG PO (21:54)
[2024-02-23] MEDS: Atorvastatin Calcium 80 MG TABLET PO (21:54)
[2024-02-23] MEDS: Losartan Potassium 50 MG TABLET 100 MG PO (21:55)
[2024-02-23] MEDS: Enoxaparin Sodium 40 MG/0.4 ML SYRINGE SUBCUT (21:55)
[2024-02-24] VITALS: BP 149/85; PULSE 71; RESP 18; TEMP 36.8; O2SAT 96
[2024-02-24 04:00] VITALS: BP 140/59; PULSE 68; RESP 18; TEMP 36.6; O2SAT 96
[2024-02-24] MEDS: Omeprazole 20 MG CAPSULE.DR PO (05:38)
[2024-02-24 07:46] LABS: Hematocrit 26.6 % (37.0-47.0); Hemoglobin 9.1 g/dl (12.0-16.0); Mean Corpuscular HGB Conc 34.2 g/dl (31.0-35.0); Mean Corpuscular Volume 93.7 fL (80.0-98.0); Mean Platelet Volume 10.7 fL (9.4-12.3); Platelet Count 265 X10*3/uL (160-400); Red Blood Count 2.84 X10*6/uL (4.20-5.50); Red Cell Distribution Width 12.9 % (11.0-16.0); White Blood Count 9.4 X10*3/uL (4.8-10.8)
[2024-02-24 08:00] VITALS: BP 158/71; PULSE 72; RESP 20; TEMP 36.7; O2SAT 97
[2024-02-24 08:02] LABS: Anion Gap 11 (12-20); Blood Urea Nitrogen 11 mg/dL (9-16); C Reactive Protein 0.65 mg/dL (< or = 0.50); Calcium 9.1 mg/dL (8.4-10.2); Carbon Dioxide 17 mmol/L (22-29); Chloride 117 mmol/L (96-108); Creatinine Clr Calc Pharmacy 97.2; Estimated Glomerular Filt Rate > 60; Glucose Random 110 mg/dL (60-115); Magnesium 1.7 mg/dL (1.6-2.6); Potassium 3.4 mmol/L (3.3-5.1); Sodium 142 mmol/L (135-145)
[2024-02-24 09:02] LABS: Glucose, Whole Blood 106 mg/dL (60-115)
--- NOTE | 2024-02-24 09:43 | W.MHC.F2F ---
Service Date Service Date: 02/24/24 Encounter Date of encounter: 02/24/24 Reasons for Services Signs and symptoms assessed: weakness dyspnea Reason for intermediate: medication management, medication treatment and teach disease management Reason for physical therapy: home safety and mobility, therapeutic exercises, gait/transfer training, assess need for DME, ADL training and energy conservation MD Overseeing Care: Rafiq Zhong Homebound: Leaving the home is medically contraindicated at this time without the asist of a device and/or another person due th the listed conditions above and below. Reason homebound: unsteady gait / fall risk, leg weakness and weakness related to hospital stay Certification: Based on the above findings, I certify that this patient is confined to the home and needs intermittent intermediate care, physical therapy and/or speech therapy, or continues to need occupational therapy. The patient is under my care, and I have initiated the establishment of the plan of care. The patient will be followed by a physician who will periodically review the plan of care. Time Spent With Patient Time: Total time managing care of this patient today ____ minutes.
[2024-02-24 09:50] VITALS: BP 156/70
[2024-02-24] MEDS: Isosorbide Mononitrate 30 MG TAB.ER.24H PO (09:50)
[2024-02-24 09:51] VITALS: PULSE 76
[2024-02-24] MEDS: Gabapentin 100 MG CAPSULE PO (09:51)
[2024-02-24] MEDS: Metoprolol Succinate ER 100 MG TAB.ER.24H PO (09:51)
[2024-02-24] MEDS: Docusate Sodium 100 MG CAPSULE PO (09:51)
[2024-02-24] MEDS: Topiramate 100 MG TABLET PO (09:51)
[2024-02-24] MEDS: amLODIPine Besylate 10 MG TABLET PO (09:51)
[2024-02-24] MEDS: Aspirin Enteric Coated 81 MG TABLET.DR PO (09:51)
[2024-02-24] MEDS: 0.9 % Sodium Chloride Flush 3 ML SYRINGE IVFLUSH (09:51)
--- NOTE | 2024-02-24 10:07 | P.DS_ITS ---
DS: Providers Provider Date of Service: 02/24/24 Date of admission: 02/21/24 21:13 Date of discharge: 02/24/24 Primary care physician: Rafiq Zhong MD DS: Diagnosis Discharge Diagnosis (1) Weakness: Status: Acute (2) Adult failure to thrive: Status: Acute (3) COVID-19: Status: Acute DS: Summary Hospital Course Hospital Course: From the history and physical by the admitting hospitalist, Harinder Knott MD, 02/21/24: Patient is a 63-year-old white female with a history of type 2 diabetes mellitus, coronary artery disease, gastritis, ischemic bowel disease, status post right BKA and currently wheelchair-bound who presents to emergency room via EMS from home with multiple medical problems. She states that she had been feeling unwell for the last 4-5 days describing increasing weakness, poor appetite with decreased oral intake, generalized abdominal pain, nausea, vomiting, diarrhea, headaches and dizziness. She also describes a subjective fevers but no chills. She tested positive for COVID-19 on a home test and this was confirmed today in the ED. she states that her son came to see her today and found her still in bed and feeling weak and so called EMS who brought her to the emergency room where initial workup done was unrevealing except for a positive COVID-19 PCR test and mild hypercalcemia (likely due to dehydration). Given her persistent and worsening weakness and inability to care for self in setting of current COVID-19 infection, a decision was made to admit her for further care and consideration for short term rehab placement. 63yo F with DM2, CAD, gastritis, hx ischemic colitis, hx R BKA presenting with weakness + weight loss, admitted for Covid-19 and failure to thrive. Chest X- ray showed multiple pulmonary nodules. CT chest showed multiple scattered bilateral nodules/groundglass attenuation and tree-in-bud opacities, with the largest nodule 1 cm in the LLL. Shew as never hypoxic so did not require specific treatment for the Covid-19. She was started on megestrol for appetite stimulation. She was seen by PT and placement in STR was recommended, but the patient declined. She was discharged home with [facility] services to include home PT. The CT of the chest should be repeated in 1 month. Time Attestation Discharge Coordination Time (in mins): 35 Quality: Safe Use of Opioids Does Pt have an Active Cancer Diagnosis on the Problem List?: No Quality: Stroke Does the patient have a stroke diagnosis?: No Physical Exam Vital Signs: Vital Signs: Last Vital Signs Temp 98.0 F 02/24/24 08:00 Pulse 76 02/24/24 09:51 Resp 20 02/24/24 08:00 BP 156/70 H 02/24/24 09:50 Pulse Ox 97 02/24/24 08:00 O2 Del Method Room Air 02/24/24 08:00 BMI result Body Mass Index 26.6 Gen: in no acute distress, weak/chronically ill-appearing HEENT: sclera anicteric, moist mucus membranes Neck: supple Lungs: clear to auscultation bilaterally Heart: regular rate and rhythm, no murmurs Abd: soft, non-tender, non-distended Ext: no edema, s/p R BKA Skin: warm/well-perfused Neuro: alert and oriented x3, no focal findings but generalized weakness Psych: appropriate affect DS: Data Data Completed and Pending Completed studies during hospitalization [Text1]: Laboratory Results WBC 9.4 X10*3/uL (4.8-10.8) 02/24/24 06:46 RBC 2.84 X10*6/uL (4.20-5.50) L 02/24/24 06:46 Hgb 9.1 g/dl (12.0-16.0) L 02/24/24 06:46 Hct 26.6 % (37.0-47.0) L 02/24/24 06:46 MCV 93.7 fL (80.0-98.0) 02/24/24 06:46 MCH 32.0 pg (27.0-33.0) 02/24/24 06:46 MCHC 34.2 g/dl (31.0-35.0) 02/24/24 06:46 RDW 12.9 % (11.0-16.0) 02/24/24 06:46 Plt Count 265 X10*3/uL (160-400) 02/24/24 06:46 MPV 10.7 fL (9.4-12.3) 02/24/24 06:46 Immature Gran % (Auto) 0.3 % (0.0-0.4) 02/23/24 06:46 Neut % (Auto) 52.0 % (45-73) 02/23/24 06:46 Lymph % (Auto) 35.7 % (20-40) 02/23/24 06:46 [place] % (Auto) 9.7 % (2-11) 02/23/24 06:46 Eos % (Auto) 2.0 % (0-4) 02/23/24 06:46 Baso % (Auto) 0.3 % (0-2) 02/23/24 06:46 Lymph # (Auto) 2.7 X10*3/uL (1.2-4.9) 02/23/24 06:46 [place] # (Auto) 0.7 X10*3/uL (0.1-1.2) 02/23/24 06:46 Eos # (Auto) 0.2 X10*3/uL (0.0-0.4) 02/23/24 06:46 Baso # (Auto) 0.0 X10*3/uL (0.0-0.2) 02/23/24 06:46 Abs Immat Gran (auto) 0.02 X10*3/uL (0.00-0.03) 02/23/24 06:46 Absolute Neuts (auto) 4.0 x10*3/uL (2.0-8.3) 02/23/24 06:46 Absolute Nucleated RBC 0.000 X10*3/uL (0.0-0.012) 02/24/24 06:46 Nucleated RBC % (auto) 0.0 /100WBC (0.0-0.2) 02/24/24 06:46 ESR 40 MM/HR (0-20) H 02/22/24 12:22 Sodium 142 mmol/L (135-145) 02/24/24 06:46 Potassium 3.4 mmol/L (3.3-5.1) 02/24/24 06:46 Chloride 117 mmol/L (96-108) H 02/24/24 06:46 Carbon Dioxide 17 mmol/L (22-29) L 02/24/24 06:46 Anion Gap 11 (12-20) L 02/24/24 06:46 BUN 11 mg/dL (9-16) 02/24/24 06:46 Creatinine 0.57 mg/dL (0.5-1.4) 02/24/24 06:46 Estim Creat Clear Calc 97.2 02/24/24 06:46 Estimated GFR > 60 02/24/24 06:46 POC Glucose 106 mg/dL (60-115) 02/24/24 08:44 Random Glucose 110 mg/dL (60-115) 02/24/24 06:46 Calcium 9.1 mg/dL (8.4-10.2) 02/24/24 06:46 Magnesium 1.7 mg/dL (1.6-2.6) 02/24/24 06:46 Total Bilirubin 0.2 mg/dL (0.0-1.0) 02/22/24 04:58 Direct Bilirubin 0.2 mg/dL (0.0-0.5) 02/21/24 12:42 AST 26 U/L (5-31) 02/22/24 04:58 ALT 7 U/L (0-31) 02/22/24 04:58 Alkaline Phosphatase 72 U/L (39-117) 02/22/24 04:58 Lactate Dehydrogenase 322 U/L (122-220) H 02/22/24 04:58 Troponin I High Sens 6.9 ng/L (<3.5-17.0) 02/21/24 12:42 C-Reactive Protein 0.65 mg/dL (< or = 0.50) H 02/24/24 06:46 B-Natriuretic Peptide 156 pg/mL (<100) H 02/21/24 12:42 Total Protein 6.2 g/dL (6.5-8.0) L 02/22/24 04:58 Albumin 3.2 g/dL (3.5-5.0) L 02/22/24 04:58 Urine Color Yellow 02/22/24 01:33 Urine Appearance Clear 02/22/24 01:33 Urine pH 5.5 (5.0-9.0) 02/22/24 01:33 Ur Specific [place] 1.015 (1.005-1.025) 02/22/24 01:33 Urine Protein 100 (2+) mg/dL (Neg-Trace) H 02/22/24 01:33 Urine Glucose (UA) Negative mg/dL (Negative) 02/22/24 01:33 Urine Ketones 15 mg/dL (Negative) 02/22/24 01:33 Urine Blood Negative (Negative) 02/22/24 01:33 Urine Nitrite Negative (Negative) 02/22/24 01:33 Ur Leukocyte Esterase Small (1+) (Negative) H 02/22/24 01:33 Urine RBC 0-2 /HPF (0-2) 02/22/24 01:33 Urine WBC 21-50 /HPF (0-5) H 02/22/24 01:33 Ur Squamous Epith Cells 0-2 /HPF (0-2) 02/22/24 01:33 Urine Bacteria None Seen (None Seen) 02/22/24 01:33 Hyaline Casts 6-10 /LPF (0-2) 02/22/24 01:33 Granular Casts Present 02/22/24 01:33 Influenza Type A (PCR) NEGATIVE (Negative) 02/21/24 12:42 Influenza Type B (PCR) NEGATIVE (Negative) 02/21/24 12:42 RSV RNA Qual (PCR) NEGATIVE (Negative) 02/21/24 12:42 SARS-CoV-2 RNA (RT-PCR) POSITIVE (Negative) A 02/21/24 12:42 Impressions Chest X-Ray 02/21/24 11:42 IMPRESSION: 1. No acute cardiopulmonary findings. 2. Multiple pulmonary nodules, some of which appear larger and more conspicuous, particularly in the left midlung. Consider chest CT. Electronically signed by: Juan Francisco Shah MD 02/21/2024 02:22 PM EST RP Chest CT 02/22/24 22:50 IMPRESSION: Multiple scattered bilateral nodules/groundglass attenuation and tree-in-bud opacities. The largest area of nodules/consolidation is in the left lower lobe and measures 1.0 cm. Findings may be infectious or inflammatory in etiology. Short interval follow-up is recommended to ensure resolution. Fleischner guidelines were followed. Electronically signed by: Radha Ram MD 02/23/2024 08:14 PM EST RP Discharge Plan Discharge Anticipated Discharge Date/Time: 02/24/24 09:45 Patient Disposition: Home Health Service Discharge Diagnosis: Covid-19 infection failure to thrive Referrals: Rafiq Zhong MD [Primary Care Provider] - 1 Week Discharge Medications: New megestrol 400 mg/10 mL (10 mL) Suspension 400 mg PO DAILY Qty: 300 0RF Continued isosorbide mononitrate 30 mg Tablet Extended Release 24 Hr 30 mg PO DAILY omeprazole 20 mg Capsule,Delayed Release(Dr/Ec) 20 mg PO BID@0630,1630 topiramate 100 mg Tablet 100 mg PO BID ergocalciferol (vitamin D2) 1,250 mcg (50,000 unit) Capsule 1,250 mcg PO RIVER insulin glargine [Lantus Solostar U-100 Insulin] 100 unit/mL (3 mL) Insulin Pen 10 - 30 unit SUBCUT DAILY PRN (Reason: Hyperglycemia) amitriptyline 50 mg tablet 50 mg PO BEDTIME aspirin 81 mg tablet,delayed release (DR/EC) 81 mg PO DAILY atorvastatin 80 mg tablet 80 mg PO BEDTIME losartan 100 mg tablet 100 mg PO BEDTIME metoprolol succinate 100 mg tablet extended release 24 hr 100 mg PO BID gabapentin 100 mg capsule 100 mg PO BID polyethylene glycol 3350 17 gram/dose powder 17 g PO DAILY PRN (Reason: Constipation) acetaminophen 325 mg Tablet 650 mg PO Q6H PRN (Reason: Pain) amlodipine 10 mg tablet 10 mg PO DAILY Discharge Orders: Discharge Order (Routine); Ordered 02/24/24 Ordered By: Tank Argueta Diet: Advance to usual diet Activity on Discharge: As tolerated Stand Alone Forms: Patient Portal Discharge page Print Language: [place] Care Plan Goals: recovery from Covid-19 infection Health Concerns: Covid-19 infection failure to thrive Plan of Treatment: you refused placement in short-term rehabilitation; will set up visiting nurse services for home physical therapy take Ensure, Boost, or other supplement take megestrol 400 mg once daily to stimulate appetite Please follow up with your primary care doctor within 1 week. Return to the hospital if you experience recurrent or worsening symptoms. Ask your primary care doctor to repeat CT scan of the lungs without contrast in 1 month to ensure resolution of the abnormalities seen. Assessment: See Discharge Summary.
--- NOTE | 2024-02-24 10:41 | MHC.CM.PN ---
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
[2024-02-24] MEDS: Megestrol Acetate 400 MG/10 ML ORAL.SUSP PO (11:00)
[2024-02-24 11:05] LABS: Glucose, Whole Blood 109 mg/dL (60-115)
[2024-02-24] MEDS: Acetaminophen 325 MG TABLET 975 MG PO (11:17)
[2024-02-24 11:31] VITALS: BP 134/68; PULSE 72; RESP 20; TEMP 36.7; O2SAT 98
== END 2024-02-24 14:47 | disposition home health service (06) | DRG 137 ==
LOC: HO.ED 17:59 → HO.EDOVER 21:33 → HO.IMC 02-22 13:24
PROVIDERS: Physician Assistant; Student in an Organized Health Care Education/Training Program; Admitting Provider Internal Medicine; Emergency Provider Emergency Medicine Emergency Medical Services; PCP Internal Medicine; Visit Provider Family Medicine
DX: U07.1 COVID-19 (principal); R62.7 Adult failure to thrive; E86.0 Dehydration; I10 Essential (primary) hypertension; E78.5 Hyperlipidemia, unspecified; R91.1 Solitary pulmonary nodule; E87.6 Hypokalemia; K21.9 Gastro-esophageal reflux disease without esophagitis; E83.42 Hypomagnesemia; Z68.26 Body mass index [BMI] 26.0-26.9, adult; I25.10 Atherosclerotic heart disease of native coronary artery without angina pectoris; Z89.511 Acquired absence of right leg below knee; Z99.3 Dependence on wheelchair; Z79.4 Long term (current) use of insulin; Z79.82 Long term (current) use of aspirin; Z79.899 Other long term (current) drug therapy
CPT/HCPCS: 0241U; 36415; 71046; 71260; 80048; 80053; 80076; 81001; 81003; 82947; 83615; 83735; 83880; 84484; 85025; 85027; 85652; 86140; 87086; 93005; 97162; 99285; J1650; J1885; Q9967

== ENCOUNTER → 2024-02-21 11:42 | Outpatient (BNV) | payer MEDICAID, SELFPAY | PROVIDERS: Emergency Provider Emergency Medicine Emergency Medical Services; PCP Internal Medicine; Visit Provider Internal Medicine Cardiovascular Disease | DX: R06.02 Shortness of breath (principal); R94.31 Abnormal electrocardiogram [ECG] [EKG] | CPT/HCPCS: 93010 ==

== ENCOUNTER → 2024-02-21 21:13 | Outpatient (BNV) | payer MEDICAID, SELFPAY | PROVIDERS: Admitting Provider Internal Medicine; Emergency Provider Emergency Medicine Emergency Medical Services; PCP Internal Medicine; Visit Provider Internal Medicine | DX: R63.8 Other symptoms and signs concerning food and fluid intake (principal); R53.1 Weakness; R62.7 Adult failure to thrive; E11.51 Type 2 diabetes mellitus with diabetic peripheral angiopathy without gangrene; I70.209 Unspecified atherosclerosis of native arteries of extremities, unspecified extremity | CPT/HCPCS: 99223; 99232; 99239; G0180 ==